=== PATIENT | male | born 1930 | race Caucasian/White ===

== ENCOUNTER 2016-08-06 13:05 | Inpatient (IN) | payer OTHER ==
[~2016-08-06] VITALS: Ht 172.7 cm; Wt 105.4 kg
[2016-08-06] VITALS (7 sets, daily range): BP systolic 164–181; BP diastolic 79–95; PULSE 79–107; RESP 20–26; TEMP 97.6; O2SAT 88–99
[~2016-08-06 13:05] MED LIST: ALBU6.7H INH; B-1210005 PO; CARV6.25 PO; CHOL4 PO; GABA300C3 PO; LACT PO; LISI-360 PO; METR250 PO; NOVOINJ6 SQ; PRIL20CA PO; PROS5TAB2 PO; ROSU40 PO; VITA-13 PO; [UNRECOGNIZED DRUG - CODE] PO
[2016-08-06] MEDS ORDERED: FUROSEMIDE 40 MG/4 ML VIAL IVP ONE (13:15)
[2016-08-06] MEDS ORDERED: methylPREDNISolone SOD SUCC 125 MG/2 ML VIAL IVP ONE (13:15)
[2016-08-06] MEDS ORDERED: SODIUM CHLORIDE 0.9% FLUSH 10 ML FLUSH IVF PRN (13:15)
[2016-08-06 13:35] LABS: AUTOMATED NEUTROPHIL # 6.9 TH/MM3 (1.8-7.7); BASOPHIL # 0.1 TH/MM3 (0-0.2); BASOPHIL % 0.6 % (0.0-2.0); EOSINOPHIL # 0.4 TH/MM3 (0-0.4); EOSINOPHIL % 4.3 % (0.0-4.0); HEMATOCRIT 33.7 % (39.0-51.0); HEMO FLAGS DIFF FINAL; LYMPH % 6.2 % (9.0-44.0); LYMPHOCYTE # 0.6 TH/MM3 (1.0-4.8); MEAN CELL VOLUME 84.8 FL (80.0-100.0); MEAN CORPUSCULAR HEMOGLOBIN 28.7 PG (27.0-34.0); MEAN CORPUSCULAR HGB CONC 33.9 % (32.0-36.0); MONO % 12.3 % (0.0-8.0); NEUT % 76.6 % (16.0-70.0); PLATELET COUNT 199 TH/MM3 (150-450); RED BLOOD COUNT 3.97 MIL/MM3 (4.50-5.90); RED CELL DISTRIBUTION WIDTH 14.8 % (11.6-17.2)
[2016-08-06] MEDS: RESP: ALBUTEROL 2.5 MG/IPRATROPIUM 0.5 MG NEB (SCH) INH (13:42)
--- NOTE | 2016-08-06 13:47 | PD ---
HPI Chief Complaint: Respiratory Distress Time Seen by Provider: 13:09 Travel History International Travel<30 days: No Contact w/Intl Traveler<30days: No Traveled to known affect area: No History of Present Illness HPI This is an 85-year-old male who presents to the emergency department with increasing shortness of breath it's been going on for a week and a half associated with some lower extremity swelling, constant, with a nonproductive cough, worse with laying flat and improved with sitting up. He denies any associated fevers or chills. Patient reports he has a history of atrial fibrillation and COPD. He doesn't really know his medications or his other medical problems. PFSH Past Medical History Anemia: Yes Arthritis: Yes Asthma: No Atrial Fibrillation: Yes Anxiety: No Depression: Yes Heart Rhythm Problems: Yes (afib) Cancer: Yes (PROSTATE) Cardiac Catheterization: Yes Cardiovascular Problems: Yes (HEART ATTACK 10 YEARS AGO ) High Cholesterol: Yes Chemotherapy: No Chest Pain: Yes Congestive Heart Failure: Yes COPD: Yes Cerebrovascular Accident: No Coronary Artery Disease: Yes Diabetes: Yes (dM TYPE 2) Diminished Hearing: Yes (BILATERAL HEARING AIDS) Endocrine: Yes Gastrointestinal Disorders: No Genitourinary: Yes Hiatal Hernia: No Hypertension: Yes Immune Disorder: No Implanted Vascular Access Dvce: No Musculoskeletal: Yes Neurologic: No Psychiatric: Yes Reproductive: No Respiratory: Yes Immunizations Current: Yes Myocardial Infarction: Yes Pneumonia: Yes Radiation Therapy: Yes (PROSTATE) Seizures: Yes (CHILDHOOD) Sleep Apnea: Yes Thyroid Disease: No Ulcer: Yes Tetanus Vaccination: Unknown Influenza Vaccination: Yes ?: Not Past Surgical History Appendectomy: Yes Body Medical Devices: "little peg in the L great toe" Cardiac Surgery: Yes (coronary stents) Coronary Stent: Yes Genitourinary Surgery: Yes (took suprapubic cath out) Oral Surgery: Yes (tonsillectomy) Prostatectomy: Yes Tonsillectomy: Yes Other Surgery: Yes Social History Alcohol Use: No Tobacco Use: No Substance Use: No Allergies-Medications (Allergen,Severity, Reaction): Coded Allergies: Coumadin (Verified Allergy, Severe, 01/24/15) Penicillin (Verified Allergy, Severe, 01/24/15) Reported Meds & Prescriptions Reported Meds & Active Scripts Active Flagyl (Metronidazole) 250 Mg Tab 250 Mg PO QID Take 1 tablet 4 times a day for 2 weeks then Take 1 tablet 3 times a day for 1 week after that take 1 tablet twice a day Lactinex (Lactobacillus Acidophilus) 1 Tab Tab 1 Tab PO TID Dificid 200 Mg Tab (Fidaxomicin) 200 Mg Tab 200 Mg PO BID 10 Days Questran 4 Gm Pkt (Cholestyramine Resin) 4 Gm Soln 4 Gm PO Q8HR Coreg 6.25 mg (Carvedilol) 6.25 Mg Tab 6.25 Mg PO BID Proventil Hfa (Albuterol Sulfate) 6.7 Gm Aero 2 Puff INH Q4 PRN * SHAKE WELL BEFORE USE * Reported Novolin N U-100 (Insulin Isophane (Human)) 1 Ml Inj 18 Units SQ HS Proscar (Finasteride) 5 Mg Tab 5 Mg PO DAILY Vitamin D3 (Cholecalciferol) 1,000 Unit Tab 1,000 Unit PO DAILY Gabapentin 300 Mg Cap 300 Mg PO DIRECTED TAKE 1 CAP BID, 2 CAPS HS Crestor (Rosuvastatin Calcium) 40 Mg Tab 40 Mg PO HS Prilosec 20 mg (Omeprazole) 20 Mg Capcr 20 Mg PO DAILY AC Lisinopril 10 mg (Lisinopril) 10 Mg Tab 10 Mg PO DAILY B-12 (Cyanocobalamin) 1,000 Cr Tab 1,000 Cr PO DAILY Review of Systems ROS Limitations: Poor Historian Physical Exam Narrative GENERAL: Overweight SKIN: Focused skin assessment warm and dry. HEAD: Atraumatic. Normocephalic. EYES: Pupils equal and round. No injection or drainage. ENT: Moist mucous membranes NECK: Trachea midline. CARDIOVASCULAR: Irregularly irregular. Tachycardic. No murmur appreciated. 3 + pitting edema in the bilateral lower extremities. RESPIRATORY: Diffuse wheezing bilaterally with accessory muscle use GASTROINTESTINAL: Abdomen soft, non-tender, nondistended. MUSCULOSKELETAL: No obvious deformities. NEUROLOGICAL: Awake and alert. No obvious cranial nerve deficits. Moving all extremities. PSYCHIATRIC: Appropriate mood and affect; insight and judgment normal. Data Data Last Documented VS Vital Signs Date Time Temp Pulse Resp B/P Pulse Ox O2 Delivery O2 Flow Rate FiO2 08/06/16 14:00 86 24 164/92 96 Nasal Cannula 2 Orders Complete Blood Count With Diff (08/06/16 13:09) Comprehensive Metabolic Panel (08/06/16 13:09) B-Type Natriuretic Peptide (08/06/16 13:09) Troponin I (08/06/16 13:09) Urinalysis - C+S If Indicated (08/06/16 13:09) Iv Access Insert/Monitor (08/06/16 13:09) Ecg Monitoring (08/06/16 13:09) Oximetry (08/06/16 13:09) Oxygen Administration (08/06/16 13:09) Chest, Single Ap (08/06/16 13:09) Sodium Chloride 0.9% Flush (Ns Flush) (08/06/16 13:15) Furosemide Inj (Lasix Inj) (08/06/16 13:15) Methylprednisolone So Succ Inj (Solumedr (08/06/16 13:15) Albuterol-Ipratropium Neb (Duoneb Neb) (08/06/16 13:15) Electrocardiogram (08/06/16 ) Urinary Catheter Insert/Apply (08/06/16 13:52) D-Dimer (08/06/16 14:49) Admit Order (Ed Use Only) (08/06/16 15:39) Labs Laboratory Tests Test 08/06/16 08/06/16 08/06/16 13:23 14:00 14:10 White Blood Count 9.0 TH/MM3 Red Blood Count 3.97 MIL/MM3 Hemoglobin 11.4 GM/DL Hematocrit 33.7 % Mean Corpuscular Volume 84.8 FL Mean Corpuscular Hemoglobin 28.7 PG Mean Corpuscular Hemoglobin 33.9 % Concent Red Cell Distribution Width 14.8 % Platelet Count 199 TH/MM3 Mean Platelet Volume 8.7 FL Neutrophils (%) (Auto) 76.6 % Lymphocytes (%) (Auto) 6.2 % Monocytes (%) (Auto) 12.3 % Eosinophils (%) (Auto) 4.3 % Basophils (%) (Auto) 0.6 % Neutrophils # (Auto) 6.9 TH/MM3 Lymphocytes # (Auto) 0.6 TH/MM3 Monocytes # (Auto) 1.1 TH/MM3 Eosinophils # (Auto) 0.4 TH/MM3 Basophils # (Auto) 0.1 TH/MM3 CBC Comment DIFF FINAL Differential Comment Sodium Level 136 MEQ/L Potassium Level 5.1 MEQ/L Chloride Level 102 MEQ/L Carbon Dioxide Level 27.2 MEQ/L Anion Gap 7 MEQ/L Blood Urea Nitrogen 29 MG/DL Creatinine 1.90 MG/DL Estimat Glomerular Filtration 34 ML/MIN Rate Random Glucose 309 MG/DL Calcium Level 8.5 MG/DL Total Bilirubin 0.5 MG/DL Aspartate Amino Transf 35 U/L (AST/SGOT) Alanine Aminotransferase 24 U/L (ALT/SGPT) Alkaline Phosphatase 108 U/L Troponin I 0.04 NG/ML B-Type Natriuretic Peptide 170 PG/ML Total Protein 7.3 GM/DL Albumin 2.9 GM/DL D-Dimer Quantitative (PE/DVT) 0.76 MG/L FEU Urine Color COLORLESS Urine Turbidity CLEAR Urine pH 5.5 Urine Specific [place] 1.005 Urine Protein 30 mg/dL Urine Glucose (UA) 300 mg/dL Urine Ketones NEG mg/dL Urine Occult Blood SMALL Urine Nitrite NEG Urine Bilirubin NEG Urine Urobilinogen LESS THAN 2.0 MG/DL Urine Leukocyte Esterase MOD Urine RBC 4 /hpf Urine WBC 7 /hpf Urine Bacteria RARE /hpf Microscopic Urinalysis Comment CULT NOT INDICATED MDM Medical Decision Making Medical Screen Exam Complete: Yes Emergency Medical Condition: Yes Interpretation(s) EKG: Atrial fibrillation Anemia 76% neutrophils Creatinine is 1.9 BNP is 170 Troponin is 0.04 Urinalysis: Small amount of white blood cells Chest x-ray: No acute process D-dimer: 0.76, likely normal for age Differential Diagnosis COPD exacerbation, pneumonia, pulmonary embolism, congestive heart failure, atrial fibrillation Narrative Course This is an 85-year-old male who presents to the emergency department with increasing shortness of breath over the past week. On exam he appears volume up. Initially was placed on a monitor and an IV was established. He is found to be hypoxic with an oxygen saturation of 88%. He was given serial bronchodilator treatments, IV methylprednisolone, and a dose of IV Lasix. His symptoms improved significantly and his oxygenation improved. Labs were reassuring. Chest x-ray was negative for acute process. D-dimer was normal for age. I think patient requires admission for continued treatment of COPD exacerbation. We did stand him up to try to ambulate him and he became very dyspneic and hypoxic again. Physician Communication Physician Communication Discussed with Dr. Sorenson Diagnosis Primary Impression: COPD exacerbation Admitting Information Admitting Physician Requests: Admit Ramona Lui MD Aug 06, 2016 13:47
--- NOTE | 2016-08-06 13:47 | RADRPT ---
EXAM DATE/TIME: 08/06/2016 13:24 [facility] COMPARISON: CHEST SINGLE AP, April 19, 2014, 22:49. INDICATIONS : Shortness of breath. MEDICAL HISTORY : Hypertension. Diabetes mellitus type II. Chronic obstructive pulmonary disease. SURGICAL HISTORY : None. ENCOUNTER: Initial ACUITY: 2 months PAIN SCORE: 0/10 LOCATION: Bilateral chest FINDINGS: A single view of the chest demonstrates the lungs to be symmetrically aerated without evidence of mas s, infiltrate or effusion. Heart is mildly enlarged. The cardiomediastinal contours are otherwise un remarkable. Osseous structures are intact. CONCLUSION: No acute disease. No significant change has occurred. Jude Turner MD on August 06, 2016 at 13:45 Board Certified Radiologist. This report was verified electronically.
[2016-08-06 13:50] LABS: ALT (GPT) 24 U/L (12-78); ANION GAP 7 MEQ/L (5-15); AST (GOT) 35 U/L (15-37); BICARBONATE 27.2 MEQ/L (21.0-32.0); BLOOD UREA NITROGEN 29 MG/DL (7-18); CHLORIDE 102 MEQ/L (98-107); GLOMERULAR FILTRATION RATE 34 ML/MIN (>89); SODIUM (NA) 136 MEQ/L (136-145)
[2016-08-06 13:51] LABS: ALKALINE PHOSPHATASE 108 U/L (45-117); TOTAL BILIRUBIN ADULT 0.5 MG/DL (0.2-1.0)
[2016-08-06 13:55] LABS: POTASSIUM 5.1 MEQ/L (3.5-5.1)
[2016-08-06 14:29] LABS: BACTERIA, URINE RARE /hpf; BLOOD, URINE SMALL (NEG); COMMENT (UR) CULT NOT INDICATED; CULTURE IF INDICATED CULT NOT INDICATED; GLUCOSE,URINE 300 mg/dL (NEG); KETONE, URINE NEG (NEG); NITRITE,URINE NEG (NEG); PH, URINE 5.5 (5.0-8.5); URINE COLOR COLORLESS (YELLW/STRAW)
--- NOTE | 2016-08-06 14:36 | EKG ---
Date Performed: 08/06/2016 Time Performed: 13:14:06 PTAGE: 85 years EKG: BASELINE ARTIFACT PRESENT. PROBABLE ATRIAL FIBRILLATION RIGHT BUNDLE BRANCH BLOCK ABNORMAL ECG INTERPRETATION BASED ON A DEFAULT AGE OF 40 YEARS NO SIGNIFICANT CHANGE FROM PRIOR ELECTROCARDIOG JERRELL. PREVIOUS TRACING : 08/06/2016 13.13 DOCTOR: Jose Alejandro Jaquez Interpretating Date/Time 08/06/2016 14:34:59
[2016-08-06] MEDS ORDERED: GABA300C5 PO (17:07)
[2016-08-06] MEDS ORDERED: FURO40TA PO (17:07)
[2016-08-06] MEDS ORDERED: CARV6.252 PO (17:07)
[2016-08-06] MEDS ORDERED: OMEP20CA2 PO (17:07)
[2016-08-06] MEDS ORDERED: ALBU1AER5 INH (17:07)
[2016-08-06] MEDS ORDERED: NOVOLOGSS SQ (17:07)
[2016-08-06] MEDS ORDERED: ASCO500T PO (17:07)
[2016-08-06] MEDS ORDERED: VITA10003 PO (17:07)
[2016-08-06] MEDS ORDERED: CITR1SOL IRRIGATION (17:07)
[2016-08-06] MEDS ORDERED: ROSU1TAB8 PO (17:07)
[2016-08-06] MEDS ORDERED: GABA400C5 PO (17:07)
[2016-08-06] MEDS ORDERED: SPIRCAP INH (17:07)
[2016-08-06] MEDS ORDERED: NOVONP2 SQ (17:07)
[2016-08-06] MEDS ORDERED: LOSA25TA PO (17:07)
[2016-08-06] MEDS ORDERED: cloNIDine HCL 0.1 MG TAB PO PRN (19:00)
[2016-08-06] MEDS ORDERED: ALBUTEROL INH PRN (19:00)
[2016-08-06] MEDS ORDERED: PILL SPLITTER OTHER PRN (19:00)
--- NOTE | 2016-08-06 19:08 | HHI.HP ---
HPI Service [facility] Primary Care Physician [facility] Admission Diagnosis copd exacerbation Diagnoses: Chief Complaint: shortness of brrsth, cough Travel History International Travel<30 Days: No Contact w/Intl Traveler <30 Da: No Traveled to Known Affected Are: No History of Present Illness Patient is an 85 years old male with history of COPD , HTN, D<m type 2 insulin requring, diabeic neuropathy, prostate cancer on chronic smith catheer ff by [facility] who for about a week ago started having shortness of breath assoicated with a dry hacking cough with fever and chills for 3 days. Per patient fever subsided but persistent cough with persistent shorten sso fo breath prompted consult to ER. No relief with use of nebulizers at home. Also on chronic smith catheter last changed a week ago- Saturday and since then has been complaining of pain on the penile shaft/ urethral site. On evaluation here - smith was changed which afforded marked relief Patient was noted to have a sats on 88% re-placed on , NC started. With diffuse wheezing per ER. Nebulization started with duo nebs and given 1 IV Solu-Medrol Admitted for evaluation Per patient PA had tried to arrange home oxygen for him but told he does not quantify Review of Systems Constitutional: COMPLAINS OF: Fever (initially for 3 days this past week), DENIES: Diaphoretic episodes, Fatigue, Weight gain, Weight loss, Chills, Dizziness, Change in appetite, Night Sweats Endocrine: DENIES: Heat/cold intolerance, Polydipsia, Polyuria, Polyphagia Eyes: DENIES: Blurred vision, Diplopia, Eye inflammation, Eye pain, Vision loss , Photosensitivity, Double Vision Ears, nose, mouth, throat: DENIES: Tinnitus, Hearing loss, Vertigo, Nasal discharge, Oral lesions, Throat pain, Hoarseness, Ear Pain, Running Nose, Epistaxis, Sinus Pain, Toothache, Odynophagia Respiratory: DENIES: Apneas, Cough, Snoring, Wheezing, Hemoptysis, Sputum production, Shortness of breath Cardiovascular: DENIES: Chest pain, Palpitations, Syncope, Dyspnea on Exertion , PND, Lower Extremity Edema, Orthopnea, Claudication Gastrointestinal: DENIES: Abdominal pain, Black stools, Bloody stools, Constipation, Diarrhea, Nausea, Vomiting, Difficulty Swallowing, Anorexia Genitourinary: DENIES: Sexual dysfunction, Urinary frequency, Urinary incontinence, Urgency, Hematuria, Dysuria, Nocturia, Penile Discharge, Testicular Pain, Testicular Swelling Musculoskeletal: DENIES: Joint pain, Muscle aches, Stiffness, Joint Swelling, Back pain, Neck pain Integumentary: DENIES: Abnormal pigmentation, Nail changes, Pruritus, Rash Hematologic/lymphatic: DENIES: Bruising, Lymphadenopathy Immunologic/allergic: DENIES: Eczema, Urticaria Neurologic: DENIES: Abnormal gait, Headache, Localized weakness, Paresthesias, Seizures, Speech Problems, Tremor, Poor Balance Psychiatric: DENIES: Anxiety, Confusion, Mood changes, Depression, Hallucinations, Agitation, Suicidal Ideation, Homicidal Ideation, Delusions Past Family Social History Past Medical History Hypertension Diabetes mellitus type 2 COPD not O2 dependent History of prostate cancer on chronic Smith catheter change every 3 weeks Past Surgical History Prostate procedure Reported Medications Losartan 12.5 mg daily Gabapentin 300 mg every morning 400 mg at bedtime Spiriva Pro-air Carvedilol 6.25 mg twice a Rosuvastatin 6.2 kg at bedtime NovoLog sliding NPH 22 units at bedtime Furosemide 40 mg daily Omeprazole Vitamin D Allergies: Coded Allergies: Coumadin (Verified Allergy, Severe, 01/24/15) Penicillin (Verified Allergy, Severe, 01/24/15) Family History Noncontributory Social History Not actively smoking or drinking are no substance abuse Physical Exam Vital Signs Vital Signs Date Time Temp Pulse Resp B/P Pulse Ox O2 Delivery O2 Flow Rate FiO2 08/06/16 17:00 90 22 172/84 94 Room Air 08/06/16 14:00 86 24 164/92 96 Nasal Cannula 2 08/06/16 13:44 98 Nasal Cannula 2.00 08/06/16 13:17 98 Nasal Cannula 3 08/06/16 13:17 107 26 181/95 98 Nasal Cannula 3 08/06/16 13:17 26 98 Nasal Cannula 3 08/06/16 13:09 90 26 181/95 88 Physical Exam GENERAL: Awake alert obese, slightly tachypneic SKIN: No rashes, ecchymoses or lesions. Cool and dry. HEAD: Atraumatic. Normocephalic. No temporal or scalp tenderness. EYES: Pupils equal round and reactive. Extraocular motions intact. No scleral icterus. No injection or drainage. ENT: Nose without bleeding, purulent drainage or septal hematoma. Throat without erythema, tonsillar hypertrophy or exudate. Uvula midline. Airway patent. NECK: Trachea midline. No JVD or lymphadenopathy. Supple, nontender, no meningeal signs. CARDIOVASCULAR: Regular rate and rhythm without murmurs, gallops, or rubs. RESPIRATORY: Decreased breath sounds no Rales or wheezes GASTROINTESTINAL: Abdomen soft, non-tender, nondistended.No guarding. Smith catheter in place draining grossly clear urine MUSCULOSKELETAL: Extremities without clubbing, cyanosis, or edema. No joint tenderness, effusion, or edema noted. No calf tenderness. Negative Homans sign bilaterally. NEUROLOGICAL: Awake and alert. Cranial nerves II through XII intact. Motor and sensory grossly within normal limits. Five out of 5 muscle strength in all muscle groups. Normal speech. Laboratory Laboratory Tests Test 08/06/16 08/06/16 08/06/16 13:23 14:00 14:10 White Blood Count 9.0 Red Blood Count 3.97 Hemoglobin 11.4 Hematocrit 33.7 Mean Corpuscular Volume 84.8 Mean Corpuscular Hemoglobin 28.7 Mean Corpuscular Hemoglobin 33.9 Concent Red Cell Distribution Width 14.8 Platelet Count 199 Mean Platelet Volume 8.7 Neutrophils (%) (Auto) 76.6 Lymphocytes (%) (Auto) 6.2 Monocytes (%) (Auto) 12.3 Eosinophils (%) (Auto) 4.3 Basophils (%) (Auto) 0.6 Neutrophils # (Auto) 6.9 Lymphocytes # (Auto) 0.6 Monocytes # (Auto) 1.1 Eosinophils # (Auto) 0.4 Basophils # (Auto) 0.1 CBC Comment DIFF FINAL Differential Comment Sodium Level 136 Potassium Level 5.1 Chloride Level 102 Carbon Dioxide Level 27.2 Anion Gap 7 Blood Urea Nitrogen 29 Creatinine 1.90 Estimat Glomerular Filtration 34 Rate Random Glucose 309 Calcium Level 8.5 Total Bilirubin 0.5 Aspartate Amino Transf 35 (AST/SGOT) Alanine Aminotransferase 24 (ALT/SGPT) Alkaline Phosphatase 108 Troponin I 0.04 B-Type Natriuretic Peptide 170 Total Protein 7.3 Albumin 2.9 D-Dimer Quantitative (PE/DVT) 0.76 Urine Color COLORLESS Urine Turbidity CLEAR Urine pH 5.5 Urine Specific [place] 1.005 Urine Protein 30 Urine Glucose (UA) 300 Urine Ketones NEG Urine Occult Blood SMALL Urine Nitrite NEG Urine Bilirubin NEG Urine Urobilinogen LESS THAN 2.0 Urine Leukocyte Esterase MOD Urine RBC 4 Urine WBC 7 Urine Bacteria RARE Microscopic Urinalysis Comment CULT NOT INDICATED Result Diagram: 08/06/16 1323 08/06/16 1323 Imaging Last Impressions Chest X-Ray 08/06/16 1309 Signed Impressions: Service Date/Time: Saturday, August 06, 2016 13:24 - CONCLUSION: No acute disease. No significant change has occurred. Jude Turner MD Assessment and Plan Assessment and Plan 85-year-old male presenting with shortness of breath underlying COPD with underlying restrictive component due to morbid obesity Acute respiratory failure with hypoxemia secondary to COPD in acute exacerbation with cough productive of yellowish sputum will treat as clinical pneumonia Start patient on Zithromax. start 02. Start patient on by mouth prednisone We'll do of home oxygen walk test prior to discharge History of atrial fibrillation rate controlled continue on Coreg. Get echo Diabetes type 2 continue continue on home insulins regimen History of hypertension continue on antihypertensive. Clonidine when necessary History of prostate cancer with chronic smith catheter.- changed 08/06. [facility] Acute kidney insufficiency likely with underlying renal insufficiency monitor BMP Lovenox for DVT prophylaxis Discussed Condition With Patient Physician Certification 2 Midnight Certification Type: Admission for Inpatient Services Order for Inpatient Services The services are ordered in accordance with Medicare regulations or non- Medicare payer requirements, as applicable. In the case of services not specified as inpatient-only, they are appropriately provided as inpatient services in accordance with the 2-midnight benchmark. Estimated LOS (days): 3 days is the estimated time the patient will need to remain in the hospital, assuming treatment plan goals are met and no additional complications. Post-Hospital Plan: Not yet determined Stephanie Sorenson MD Aug 06, 2016 19:08 Stephanie Sorenson MD Aug 06, 2016 19:08
[2016-08-06] MEDS ORDERED: RESP: ALBUTEROL 2.5 MG/IPRATROPIUM 0.5 MG NEB (PRN) NEB (19:15)
[2016-08-06] MEDS ORDERED: [UNRECOGNIZED DRUG - OTHER] INH PRN (19:15)
[2016-08-06] MEDS ORDERED: DEXTROSE 50% IN WATER 50 ML VIAL(D50) IV PUSH PRN (19:30)
[2016-08-06] MEDS ORDERED: GLUCAGON 1 MG/ML VIAL OTHER PRN (19:30)
[2016-08-06] MEDS: RESP: ALBUTEROL 2.5 MG/IPRATROPIUM 0.5 MG NEB (SCH) NEB (20:00)
[2016-08-06] MEDS ORDERED: AZITHROMYCIN INJ 500 MG in SODIUM CHLOR 0.9% 250 ML INJ 250 ML IV ONE (20:00)
[2016-08-06] MEDS ORDERED: ACETAMINOPHEN 325 MG TAB PO PRN (21:00)
[2016-08-06] MEDS ORDERED: NON-FORMULARY DRUG (Rosuvastatin 10 MG) PO SCH (21:00)
[2016-08-06] MEDS: INSULIN HUMAN NPH 1,000 UNITS/10 ML VIAL SQ SCH (21:00)
[2016-08-06] MEDS ORDERED: INSULIN HUMAN REGULAR 1,000 UNITS/10 ML VIAL IV PUSH ONE ×2 (21:00→23:45)
[2016-08-06] MEDS: INSULIN ASPART SUPPLEMENTAL SCALE SQ SCH (21:35)
[2016-08-06] MEDS: guaiFENesin E.R. 600 MG TAB PO SCH (21:39)
[2016-08-06] MEDS: CARVEDILOL 6.25 MG TAB PO SCH (21:39)
[2016-08-06] MEDS: GABAPENTIN 400 MG CAP PO SCH (21:40)
[2016-08-06] MEDS: ATORVASTATIN 20 MG TAB PO SCH (21:40)
[2016-08-06] MEDS: methylPREDNISolone SOD SUCC 40 MG/1 ML VIAL IV PUSH SCH (21:41)
[2016-08-07] VITALS (9 sets, daily range): BP systolic 133–173; BP diastolic 70–88; PULSE 69–87; RESP 18–24; TEMP 97–98; O2SAT 90–97
[2016-08-07] MEDS: GABAPENTIN 300 MG CAP PO SCH (06:10)
[2016-08-07] MEDS: methylPREDNISolone SOD SUCC 40 MG/1 ML VIAL IV PUSH SCH ×3 (06:12→21:33)
[2016-08-07] MEDS: INSULIN ASPART SUPPLEMENTAL SCALE SQ SCH ×4 (06:18→21:32)
[2016-08-07] MEDS ORDERED: NON-FORMULARY DRUG (Omeprazole 20 MG) PO SCH (07:00)
[2016-08-07] MEDS: RESP: ALBUTEROL 2.5 MG/IPRATROPIUM 0.5 MG NEB (SCH) NEB ×4 (07:39→20:05)
[2016-08-07] MEDS: CARVEDILOL 6.25 MG TAB PO SCH ×2 (08:14→21:31)
[2016-08-07] MEDS: PANTOPRAZOLE SOD 20 MG DELAYED RELEASE TAB PO SCH (08:14)
[2016-08-07] MEDS: guaiFENesin E.R. 600 MG TAB PO SCH ×2 (08:14→21:30)
[2016-08-07] MEDS: TIOTROPIUM BROMIDE 18 MCG INH INH SCH (08:14)
[2016-08-07] MEDS: LOSARTAN 25 MG TAB PO SCH (08:14)
[2016-08-07] MEDS ORDERED: FUROSEMIDE 40 MG TAB PO SCH (09:00)
[2016-08-07 09:06] LABS: ANION GAP 10 MEQ/L (5-15); BLOOD UREA NITROGEN 40 MG/DL (7-18); CHLORIDE 100 MEQ/L (98-107); GLOMERULAR FILTRATION RATE 31 ML/MIN (>89); POTASSIUM 4.3 MEQ/L (3.5-5.1); SODIUM (NA) 137 MEQ/L (136-145)
--- NOTE | 2016-08-07 15:34 | EC ---
Study Study Date:08/07/2016 STUDY CONCLUSIONS SUMMARY - Left ventricle: The cavity size was normal. Wall thickness was increased in a pattern of moderate LVH. Systolic function was normal. The estimated ejection fraction was in the range of 55% to 60%. Wall motion was normal; there were no regional wall motion abnormalities. - Aorta: The aorta was moderately dilated. - Mitral valve: Mild regurgitation. - Left atrium: The atrium was mildly dilated. - Tricuspid valve: Mild regurgitation. - Pulmonary arteries: Systolic pressure was moderately increased. PA peak pressure: 39mm Hg (S). If LV function is below 40, please consider prescribing an ACEI or ARB or document rationale for non-use. PROCEDURE DATA STUDY STATUS: Elective. Procedure: Transthoracic echocardiography. Image quality was good. Scanning was performed from the parasternal, apical, and subcostal acoustic windows. Study completion: The patient tolerated the procedure well. Transthoracic echocardiography. M-mode, complete 2D, complete spectral Doppler, and color Doppler. Patient status: Inpatient. CARDIAC ANATOMY LEFT VENTRICLE: The cavity size was normal. Wall thickness was increased in a pattern of moderate LVH. Systolic function was normal. The estimated ejection fraction was in the range of 55% to 60%. Wall motion was normal; there were no regional wall motion abnormalities. AORTIC VALVE: Trileaflet; normal thickness leaflets. Doppler: Transvalvular velocity was within the normal range. There was no stenosis. No regurgitation. AORTA: The aorta was moderately dilated. Aortic root: The aortic root was normal in size. MITRAL VALVE: Structurally normal valve. Doppler: Transvalvular velocity was within the normal range. There was no evidence for stenosis. Mild regurgitation. LEFT ATRIUM: The atrium was mildly dilated. RIGHT VENTRICLE: The cavity size was normal. Wall thickness was normal. PULMONIC VALVE: Doppler: Transvalvular velocity was within the normal range. There was no evidence for stenosis. No regurgitation. TRICUSPID VALVE: Structurally normal valve. Doppler: Transvalvular velocity was within the normal range. Mild regurgitation. PULMONARY ARTERY: The main pulmonary artery was normal-sized. Systolic pressure was moderately increased. RIGHT ATRIUM: The atrium was normal in size. PERICARDIUM: There was no pericardial effusion. SYSTEMIC VEINS: Inferior vena cava: The vessel was normal in size. BASIC MEASUREMENTS ADULT Normal Left ventricle LV internal dimension, ED, chordal level, *41.7 mm 43-52 PLAX LV internal dimension, ES, chordal level, 31 mm 23-38 PLAX Fractional shortening, chordal level, PLAX *26 % >29 LV posterior wall thickness, ED 15.7 mm IVS/LVPW ratio, ED 1.03 <1.3 Ventricular septum Septal thickness, ED 16.2 mm Aortic valve Leaflet separation 24 mm 15-26 Right ventricle RV internal dimension, ED, PLAX 33.3 mm 19-38 BASIC MEASUREMENTS ADULT Normal Aortic valve Leaflet separation 24 mm 15-26 Aorta Root diameter, ED *40 mm 20-37 Left atrium Anterior-posterior dimension, ES *49 mm 19-40 LA/aortic root ratio 1.23 DOPPLER MEASUREMENTS ADULT Normal Main pulmonary artery Pressure, S *39 mm Hg =30 Tricuspid valve Regurgitant peak velocity 269 cm/s Peak RV-RA gradient, S 29 mm Hg Systemic veins Estimated CVP 10 mm Hg Right ventricle RV pressure, S *39 mm Hg <30 LEGEND: Mean values are shown as u=mean value. Asterisk (*) orse values outside specified normal range. Prepared and signed by Chelsi Orozco [id number]
--- NOTE | 2016-08-07 16:47 | HHI.PR ---
Subjective Remarks up and ambulated cough- minimal Objective Vitals Vital Signs Date Time Temp Pulse Resp B/P Pulse Ox O2 Delivery O2 Flow Rate FiO2 08/07/16 12:00 97.5 69 22 133/80 94 08/07/16 08:00 98.0 74 22 173/86 95 08/07/16 07:44 Nasal Cannula 2.00 08/07/16 07:39 95 Nasal Cannula 2.00 08/07/16 04:00 97.2 75 19 133/70 94 08/07/16 01:09 Nasal Cannula 2.00 08/07/16 00:00 97.0 78 19 165/88 97 08/06/16 20:00 97.6 79 20 166/79 99 08/06/16 18:59 89 22 165/88 98 Nasal Cannula 3 08/06/16 17:00 90 22 172/84 94 Room Air I/O 08/06/16 08/06/16 08/06/16 08/07/16 08/07/16 08/07/16 07:00 15:00 23:00 07:00 15:00 23:00 Intake Total 120 ml 120 ml Output Total 2100 ml 300 ml Balance -1980 ml -180 ml Intake Oral 120 ml 120 ml Output Urine Total 2100 ml 300 ml # Bowel Movements 0 1 Result Diagram: 08/06/16 1323 08/07/16 0730 Imaging Last Impressions Chest X-Ray 08/06/16 1309 Signed Impressions: Service Date/Time: Saturday, August 06, 2016 13:24 - CONCLUSION: No acute disease. No significant change has occurred. Jude Turner MD Objective Remarks awake and alert lungs- few rhonchi, few exp. wheezes regular rhythm abdomen soft, notneder extremities no edema A/P Assessment and Plan 85-year-old male presenting with shortness of breath underlying COPD with underlying restrictive component due to morbid obesity Acute respiratory failure with hypoxemia secondary to COPD in acute exacerbation with cough productive of yellowish sputum will treat as clinical pneumonia On zithromax continue 02 po prednisone We'll do of home oxygen walk test prior to discharge History of atrial fibrillation rate controlled continue on Coreg. echo pending Diabetes type 2 continue continue on home insulins regimen History of hypertension continue on antihypertensive. Clonidine when necessary History of prostate cancer with chronic smith catheter.- changed 08/06. [facility] Acute kidney insufficiency likely with underlying renal insufficiency ff. BMP. decrease furseomide dose Lovenox for DVT prophylaxis Stephanie Sorenson MD Aug 07, 2016 16:47
[2016-08-07 20:21] LABS: BLOOD GAS BASE EXCESS 1.8 mmol/L (-2-2); BLOOD GAS HCO3 27 mmol/L (22-26); BLOOD GAS METHEMOGLOBIN 0.9 % (0-2); BLOOD GAS O2 HGB SATURATION 91 % (90-100); BLOOD GAS PCO2 48 mmHg (38-42); BLOOD GAS PO2 68 mmHg (61-120); BLOOD GAS TOTAL HGB 16.4 G/DL (12.0-16.0); CRITICAL VALUE NO; DRAW SITE RT RADIAL; FIO2 21 %; NUMBER OF ARTERIAL PUNCTURES 1; STAT NO; TEMP CORR TO 98.6; ULNAR PULSE PRESENT
[2016-08-07] MEDS: INSULIN HUMAN NPH 1,000 UNITS/10 ML VIAL SQ SCH (21:00)
[2016-08-07] MEDS: ATORVASTATIN 20 MG TAB PO SCH (21:30)
[2016-08-07] MEDS: GABAPENTIN 400 MG CAP PO SCH (21:31)
[2016-08-07] MEDS: AZITHROMYCIN 250 MG TAB PO SCH (21:31)
[2016-08-07 21:38] LABS: HEMOGLOBIN A1a 1.4 %; HEMOGLOBIN A1b 2.9 %; HEMOGLOBIN Ao 77.3 %; HEMOGLOBIN LA1C 2.6 %; HEMOGLOBIN P3 5.6 %
--- NOTE | 2016-08-07 22:25 | MB ---
cc: ABISAI RICHMOND DATE OF CONSULTATION 08/07/[address] Sorenson. REASON FOR CONSULTATION Evaluation for COPD exacerbation. PRESENT ILLNESS Mr. Gibson is a pleasant 85-year-old male with longstanding history of COPD. He uses nebulizer treatment, history of diabetes mellitus, hypertension, history of seven stents placed. The patient came to the hospital with one week history of worsening of his cough and shortness of breath. He was feeling burning sensation across his chest and worsening of his wheezing. He took nebulizer treatment at home and did not get better and better and he came to the hospital. He had a workup done. LABORATORY DATA His WBC count is 9000, hemoglobin 11.4, hematocrit 33.7, MCV 84, platelet count 199. His sodium 137, potassium 4.3, chloride 100, CO2 27, BUN 40, creatinine 2.06, glucose 198. Before that it was 579. IMAGING His chest x-ray showed no acute infiltrate. PAST MEDICAL HISTORY Significant for: 1. Longstanding history of COPD. 2. Diabetes mellitus. 3. Hypertension. 4. History of coronary artery disease status post seven stent placements. 5. History of cancer of the prostate status post 40 radiation treatments and he has indwelling Cortez catheter. MEDICATIONS He is currently takin. Lasix 20 mg a day. 2. Zithromax 250 mg a day. 3. Losartan 12.5 mg daily. 4. Spiriva once a day. 5. Protonix 40 milligrams daily. 6. Neurontin 300 mg a day. 7. Solu-Medrol 40 mg q.8h. 8. Coreg 6.25 milligrams twice a day. 9. Mucinex 600 milligrams twice a day. 10. Lipitor 20 mg a day. 11. Albuterol/Atrovent nebulizer treatment. ALLERGIES HR IS ALLERGIC TO COUMADIN AND PENICILLIN. SOCIAL HISTORY He is for 60 years. He used to work before. He is retired. He has history of smoking up to five packs a day which he quit a long time ago. No alcohol use. FAMILY HISTORY He has five children. His is currently in the long term. REVIEW OF SYSTEMS The patient is able to walk only short distance. He has indwelling Cortez catheter. No DVT, pulmonary embolism, or seizure, stroke or epilepsy. PHYSICAL EXAMINATION GENERAL: Shows a well-built, well-nourished male, mild short of breath. VITAL SIGNS: Blood pressure 166/79, heart rate 81, respiration 19, temperature 97.6. HEENT: Pupils are equal and reactive to light. Oral mucosa, nasal mucosa normal. NECK: Supple. JVD not raised. CHEST: He has bilateral expiratory rhonchi. CARDIOVASCULAR: S1-S2 normal. ABDOMEN: Soft, nondistended. Bowel sounds present. EXTREMITIES: No edema. CENTRAL NERVOUS SYSTEM: She is alert and oriented times three. No focal deficit. IMPRESSION 1. COPD exacerbation. 2. Bronchitis. 3. Uncontrolled diabetes mellitus. 4. Hypertension. 5. History of coronary artery disease. 6. Cancer of the prostate. PLAN I discussed with the patient and his daughter at the bedside we will give him aerosol treatment, IV Solu-Medrol. Monitor his blood sugar. Continue antibiotic. Supplement his oxygen and check a blood gas. I will also evaluate him for need for home oxygen therapy. Further treatment will depend on the course in the hospital. Thank you Dr. Sorenson for this consultation. MD ADRIEN Goldman/LORENA /7:08 PM /10:12 PM
[2016-08-08] VITALS (8 sets, daily range): BP systolic 155–179; BP diastolic 77–94; PULSE 69–85; RESP 18–22; TEMP 97.6–98.2; O2SAT 94–97
[2016-08-08] MEDS: INSULIN ASPART SUPPLEMENTAL SCALE SQ SCH ×4 (06:18→21:24)
[2016-08-08] MEDS: methylPREDNISolone SOD SUCC 40 MG/1 ML VIAL IV PUSH SCH ×2 (06:18→12:12)
[2016-08-08] MEDS: GABAPENTIN 300 MG CAP PO SCH (06:18)
[2016-08-08] MEDS: RESP: ALBUTEROL 2.5 MG/IPRATROPIUM 0.5 MG NEB (SCH) NEB ×4 (08:00→19:12)
[2016-08-08] MEDS: TIOTROPIUM BROMIDE 18 MCG INH INH SCH (09:00)
[2016-08-08] MEDS: LOSARTAN 25 MG TAB PO SCH (09:19)
[2016-08-08] MEDS: PANTOPRAZOLE SOD 20 MG DELAYED RELEASE TAB PO SCH (09:19)
[2016-08-08] MEDS: guaiFENesin E.R. 600 MG TAB PO SCH ×2 (09:19→21:24)
[2016-08-08] MEDS: CARVEDILOL 6.25 MG TAB PO SCH ×2 (09:19→21:25)
[2016-08-08] MEDS: FUROSEMIDE 20 MG TAB PO SCH (09:20)
--- NOTE | 2016-08-08 14:42 | HHI.PR ---
Subjective Remarks feels slightly better cough dry Objective Vitals Vital Signs Date Time Temp Pulse Resp B/P Pulse Ox O2 Delivery O2 Flow Rate FiO2 08/08/16 12:00 97.9 69 18 172/94 95 08/08/16 09:00 95 Nasal Cannula 3.00 08/08/16 08:02 97 Nasal Cannula 2.00 08/08/16 08:00 97.8 81 22 173/87 95 08/08/16 04:00 98.1 83 20 179/81 95 08/08/16 00:00 98.2 85 20 164/77 95 08/07/16 20:15 Nasal Cannula 2.00 08/07/16 20:10 97 Nasal Cannula 2.00 08/07/16 19:30 97.6 72 18 156/80 95 08/07/16 16:30 97.6 81 19 166/79 97 08/07/16 16:00 97.4 87 24 158/77 90 I/O 08/07/16 08/07/16 08/07/16 08/08/16 08/08/16 08/08/16 07:00 15:00 23:00 07:00 15:00 23:00 Intake Total 120 ml 480 ml 600 ml 240 ml Output Total 300 ml 975 ml 650 ml 600 ml Balance -180 ml -495 ml -50 ml -360 ml Intake Oral 120 ml 480 ml 600 ml 240 ml Output Urine Total 300 ml 975 ml 650 ml 600 ml # Bowel Movements 1 3 0 0 Result Diagram: 08/06/16 1323 08/07/16 0730 Imaging Last Impressions Chest X-Ray 08/06/16 1309 Signed Impressions: Service Date/Time: Saturday, August 06, 2016 13:24 - CONCLUSION: No acute disease. No significant change has occurred. Jude Turner MD Objective Remarks awake and alert lungs- few rhonchi, regular rhythm abdomen soft, notender extremities no edema Urinary Catheter: Yes Smith insert reason: Obstruction/Retention A/P Assessment and Plan 85-year-old male presenting with shortness of breath underlying COPD with underlying restrictive component due to morbid obesity Acute respiratory failure with hypoxemia secondary to COPD in acute exacerbation with cough productive of yellowish sputum will treat as clinical pneumonia On zithromax continue 02 change to po prednisone 20 mg po bid We'll do of home oxygen walk test prior to discharge History of atrial fibrillation rate controlled continue on Coreg. echo good systolic function EF 55-% Diabetes type 2 continue continue on home insulins regimen- patient is on NPH 22 units SQ hs. We will change to bid start NPH am dose too History of hypertension continue on antihypertensive. Clonidine when necessary History of prostate cancer with chronic smith catheter.- changed 08/06. [facility] Acute kidney insufficiency likely with underlying renal insufficiency ff. BMP. - on lasix Lovenox for DVT prophylaxis will do walk test prior to DC- I thinck he will qualify for home 02 was on home 02 but [place] took it away Stephanie Sorenson MD Aug 08, 2016 14:42
--- NOTE | 2016-08-08 19:29 | HHI.PR ---
Subjective Remarks 85 YO WM with COPD exac, Bronchitis,DM Feels better On NC Switched to po Steroids Objective Vital Signs Vital Signs Date Time Temp Pulse Resp B/P Pulse Ox O2 Delivery O2 Flow Rate FiO2 08/08/16 16:00 98.0 81 18 167/89 94 08/08/16 15:13 96 Nasal Cannula 2.00 08/08/16 12:00 97.9 69 18 172/94 95 08/08/16 09:00 95 Nasal Cannula 3.00 08/08/16 08:02 97 Nasal Cannula 2.00 08/08/16 08:00 97.8 81 22 173/87 95 08/08/16 04:00 98.1 83 20 179/81 95 08/08/16 00:00 98.2 85 20 164/77 95 08/07/16 20:15 Nasal Cannula 2.00 08/07/16 20:10 97 Nasal Cannula 2.00 08/07/16 19:30 97.6 72 18 156/80 95 I/O 08/07/16 08/07/16 08/07/16 08/08/16 08/08/16 08/08/16 07:00 15:00 23:00 07:00 15:00 23:00 Intake Total 120 ml 480 ml 600 ml 240 ml 960 ml Output Total 300 ml 975 ml 650 ml 600 ml 1550 ml Balance -180 ml -495 ml -50 ml -360 ml -590 ml Intake Oral 120 ml 480 ml 600 ml 240 ml 960 ml Output Urine Total 300 ml 975 ml 650 ml 600 ml 1550 ml # Bowel Movements 1 3 0 0 0 Result Diagram: 08/06/16 1323 08/07/16 0730 Objective Remarks GENERAL: WBWN obese male, NAD SKIN: Warm and dry. HEAD: Normocephalic. EYES: No scleral icterus. No injection or drainage. NECK: Supple, trachea midline. No JVD or lymphadenopathy. CARDIOVASCULAR: Regular rate and rhythm without murmurs, gallops, or rubs. RESPIRATORY: Breath sounds equal bilaterally. No accessory muscle use. Exp rhonchi GASTROINTESTINAL: Abdomen soft, non-tender, nondistended. MUSCULOSKELETAL: No cyanosis, or edema. BACK: Nontender without obvious deformity. No CVA tenderness. A/P Assessment and Plan COPD Exac bronchitis DM CAD H/O Ca Prostate PLAN: Aerosol nebs PO Steroids monitor BS Cont Zithro Supplement 02 to keep sat >90% Pardeep Rodriguez MD Aug 08, 2016 19:29
[2016-08-08] MEDS: INSULIN HUMAN NPH 1,000 UNITS/10 ML VIAL SQ SCH (21:00)
[2016-08-08] MEDS: GABAPENTIN 400 MG CAP PO SCH (21:24)
[2016-08-08] MEDS: AZITHROMYCIN 250 MG TAB PO SCH (21:24)
[2016-08-08] MEDS: ATORVASTATIN 20 MG TAB PO SCH (21:25)
[2016-08-08] MEDS: predniSONE 20 MG TAB PO SCH (21:25)
[2016-08-09] VITALS: BP 171/86; PULSE 78; RESP 18; TEMP 97.7; O2SAT 96
[2016-08-09 04:00] VITALS: BP 175/88; PULSE 77; RESP 18; TEMP 98; O2SAT 97
[2016-08-09] MEDS: GABAPENTIN 300 MG CAP PO SCH (06:13)
[2016-08-09] MEDS: INSULIN ASPART SUPPLEMENTAL SCALE SQ SCH ×2 (06:14→11:00)
[2016-08-09] MEDS: RESP: ALBUTEROL 2.5 MG/IPRATROPIUM 0.5 MG NEB (SCH) NEB ×3 (07:52→15:22)
[2016-08-09 07:54] VITALS: O2SAT 96
[2016-08-09 08:00] VITALS: BP 146/82; PULSE 81; RESP 24; TEMP 98.5; O2SAT 98
[2016-08-09] MEDS ORDERED: INSULIN HUMAN NPH 1,000 UNITS/10 ML VIAL SQ SCH (08:00)
[2016-08-09] MEDS: guaiFENesin E.R. 600 MG TAB PO SCH (08:11)
[2016-08-09] MEDS: LOSARTAN 25 MG TAB PO SCH (08:11)
[2016-08-09] MEDS: predniSONE 20 MG TAB PO SCH (08:11)
[2016-08-09] MEDS: PANTOPRAZOLE SOD 20 MG DELAYED RELEASE TAB PO SCH (08:11)
[2016-08-09] MEDS: CARVEDILOL 6.25 MG TAB PO SCH (08:11)
[2016-08-09] MEDS: FUROSEMIDE 20 MG TAB PO SCH (08:11)
[2016-08-09] MEDS: TIOTROPIUM BROMIDE 18 MCG INH INH SCH (08:12)
[2016-08-09 12:00] VITALS: BP 149/87; PULSE 67; RESP 24; TEMP 97.5; O2SAT 96
[2016-08-09] MEDS ORDERED: PRED20 PO (14:13)
[2016-08-09] MEDS ORDERED: AZIT250T3 PO (14:14)
[2016-08-09] MEDS ORDERED: FURO20TA PO (14:16)
--- NOTE | 2016-08-09 14:19 | HHI.PR ---
Subjective Remarks feeling better no cough, no fever smith draining clear urine Objective Vitals Vital Signs Date Time Temp Pulse Resp B/P Pulse Ox O2 Delivery O2 Flow Rate FiO2 08/09/16 12:00 97.5 67 24 149/87 96 08/09/16 08:00 98.5 81 24 146/82 98 08/09/16 08:00 94 Nasal Cannula 2.00 08/09/16 07:54 96 Nasal Cannula 2.00 08/09/16 04:00 98.0 77 18 175/88 97 08/09/16 00:00 97.7 78 18 171/86 96 08/08/16 20:15 Nasal Cannula 2.00 08/08/16 20:00 97.6 77 18 155/89 96 08/08/16 16:00 98.0 81 18 167/89 94 08/08/16 15:13 96 Nasal Cannula 2.00 I/O 08/08/16 08/08/16 08/08/16 08/09/16 08/09/16 08/09/16 07:00 15:00 23:00 07:00 15:00 23:00 Intake Total 240 ml 960 ml 240 ml 240 ml Output Total 600 ml 1550 ml 1450 ml Balance -360 ml -590 ml 240 ml -1210 ml Intake Oral 240 ml 960 ml 240 ml 240 ml Output Urine Total 600 ml 1550 ml 1450 ml # Voids 0 # Bowel Movements 0 0 0 0 Result Diagram: 08/06/16 1323 08/07/16 0730 Imaging Last Impressions Chest X-Ray 08/06/16 1309 Signed Impressions: Service Date/Time: Saturday, August 06, 2016 13:24 - CONCLUSION: No acute disease. No significant change has occurred. Jude Turner MD Objective Remarks awake and alert lungs- few rhonchi, regular rhythm abdomen soft, nontender extremities no edema A/P Assessment and Plan 85-year-old male presenting with shortness of breath underlying COPD with underlying restrictive component due to morbid obesity Acute respiratory failure with hypoxemia secondary to COPD in acute exacerbation with cough productive of yellowish sputum will treat as clinical pneumonia On zithromax continue 02 change to po prednisone 20 mg po bid We'll do of home oxygen walk test prior to discharge History of atrial fibrillation rate controlled continue on Coreg. echo good systolic function EF 55-% Diabetes type 2 continue continue on home insulins regimen- patient is on NPH 22 units SQ hs. We will change to bid start NPH am dose too History of hypertension continue on antihypertensive. Clonidine when necessary History of prostate cancer with chronic smith catheter.- changed 08/06. [facility] Acute kidney insufficiency likely with underlying renal insufficiency ff. BMP. - on lasix Lovenox for DVT prophylaxis will do walk test prior to DC- did not qualify was on home [facility] but [facility] Home today Stephanie Sorenson MD Aug 09, 2016 14:19
--- NOTE | 2016-08-09 14:21 | HHI.DS ---
Discharge Summary Admission Date Aug 06, 2016 at 15:40 Discharge Date: Aug 09, 2016 Admitting Diagnosis copd exacerbation (1) Chronic obstructive pulmonary disease ICD Code: J44.9 Diagnosis: Principal Procedures none Brief History - From Admission Patient is an 85 years old male with history of COPD , HTN, D<m type 2 insulin requring, diabeic neuropathy, prostate cancer on chronic smith catheer ff by [facility] who for about a week ago started having shortness of breath assoicated with a dry hacking cough with fever and chills for 3 days. Per patient fever subsided but persistent cough with persistent shorten sso fo breath prompted consult to ER. No relief with use of nebulizers at home. Also on chronic smith catheter last changed a week ago- Saturday and since then has been complaining of pain on the penile shaft/ urethral site. On evaluation here - smith was changed which afforded marked relief Patient was noted to have a sats on 88% re-placed on NC, 02 NC started. With diffuse wheezing per ER. Nebulization started with duo nebs and given 1 IV Solu-Medrol Admitted for evaluation Per patient PA had tried to arrange home oxygen for him but told he does not quantify CBC/BMP: 08/06/16 1323 08/07/16 0730 Significant Findings Laboratory Tests Test 08/06/16 08/07/16 08/07/16 21:50 07:30 20:10 Random Glucose 579 MG/DL 198 MG/DL (74-106) (74-106) Blood Urea Nitrogen 40 MG/DL (7-18) Creatinine 2.06 MG/DL (0.60-1.30) Estimat Glomerular Filtration 31 ML/MIN (>89) Rate Hemoglobin A1c 9.9 % (4.3-6.0) Blood Gas HCO3 27 mmol/L (22-26) Arterial Blood pH 7.36 (7.380-7.420) Arterial Blood Partial 48 mmHg (38-42) Pressure CO2 Arterial Blood Oxygen Content 21.0 Vol % (12.0-20.0) Blood Gas Hemoglobin 16.4 G/DL (12.0-16.0) Imaging Last Impressions Chest X-Ray 08/06/16 5059 Signed Impressions: Service Date/Time: Saturday, August 06, 2016 13:24 - CONCLUSION: No acute disease. No significant change has occurred. Jude Turner MD PE at Discharge awake and alert lungs- decreased breath sounds, no rhonchi, no whezes regular rhythm abdomen soft, nontenderfoley in place- clear urine draininfg extremities no edema Pt update on day of discharge awake and alert, afebrile- ambulating- did not qualify for home 02 instruct patient to pace himselfgoing on and on about bills Hospital Course 85-year-old male presenting with shortness of breath underlying COPD with underlying restrictive component due to morbid obesity Acute respiratory failure with hypoxemia secondary to COPD in acute exacerbation with cough productive of yellowish sputum will treat as clinical pneumonia On zithromax continue 02 change to po prednisone 20 mg po bid We'll do of home oxygen walk test prior to discharge History of atrial fibrillation rate controlled continue on Coreg. echo good systolic function EF 55-% Diabetes type 2 continue continue on home insulins regimen- patient is on NPH 22 units SQ hs. We will change to bid start NPH am dose too History of hypertension continue on antihypertensive. Clonidine when necessary History of prostate cancer with chronic smith catheter.- changed 08/06. Outpatient follow-up with [facility] Acute kidney insufficiency likely with underlying renal insufficiency ff. BMP. - on lasix Lovenox for DVT prophylaxis will do walk test prior to DC- did not qualify Home today Pt Condition on Discharge: Stable Discharge Disposition: Disch w/ Home Health Serv Discharge Time: <= 30 minutes Discharge Instructions DIET: Follow Instructions for: Heart Healthy Diet, Diabetic Diet Activities you can perform: Weight Bearing as [place] Activities to Avoid: Prolonged Standing, Strenuous Activity Follow up Referrals: PCP Follow-up - 08/13/16 with [facility] - 08/14/16 with Pardeep Rodriguez MD New Orders: BASIC METABOLIC PROF - 08/13/16 New Medications: Azithromycin (Azithromycin) 250 Mg Tab 250 MG PO DAILY@20 COPD Days 2 TAB Furosemide (Furosemide) 20 Mg Tab 20 MG PO DAILY HTN Days 30 TAB Prednisone (Prednisone) 20 Mg Tab 20 MG PO BID CIPD Days 3 TAB Continued Medications: Albuterol Powder Inh (Proair Respiclick Inh) 90 Mcg/Act Aerp 1 PUFF INH Q4H PRN SHORTNESS OF BREATH #1 Ref 0 INHALER Ascorbic Acid (Ascorbic Acid) 500 Mg Tab 500 MG PO TAB Carvedilol (Carvedilol) 6.25 Mg Tab 6.25 MG PO BID #60 Ref 0 TAB Cholecalciferol (Vitamin D-3) 1,000 Unit Tab 1000 UNITS PO DAILY #30 Ref 0 TAB Citric Yoxn-Nywnltkwbyy-Wqhgpdmbx Carbon Irr (Renacidin Irr) 500 Ml Soln 30 ML IRRIGATION WEEKLY #1 CONTAINER Gabapentin (Gabapentin) 300 Mg Cap 300 MG PO DAILY@0600 #30 Ref 0 CAP Gabapentin (Gabapentin) 400 Mg Cap 400 CAP PO HS #30 Ref 0 CAP Insulin Aspart Inj (Novolog Inj) 100 Unit/Ml Inj 12 SQ TIDAC Insulin Human NPH Inj (Novolin N Inj) 1,000 Unit/10 Ml Vial 22 UNITS SQ HS Blood Sugar Management #10 Ref 0 ML Losartan (Losartan) 25 Mg Tab 12.5 MG PO DAILY Blood Pressure Management #15 Ref 0 TAB Omeprazole (Omeprazole) 20 Mg Cap 20 MG PO AC BREAKFAST Rosuvastatin (Rosuvastatin) 20 Mg Tab 10 MG PO HS Cholesterol Management #30 Ref 0 TAB Tiotropium Inh (Spiriva Handihaler) 18 Mcg Cap 18 MCG INH DAILY 1 capsule = 18 mcg COPD #30 Ref 0 CAP Discontinued Medications: Furosemide (Furosemide) 40 Mg Tab 40 MG PO DAILY #30 Ref 0 TAB Stephanie Sorenson MD Aug 09, 2016 14:21
--- NOTE | 2016-08-09 14:26 | HHI.FF ---
Face to Face Verification Diagnosis: (1) DM (diabetes mellitus) (2) History of prostate cancer (3) Acute on chronic renal failure (4) Diabetes Home Health Nursing Order: Medical education Signs/symptoms of disease process Diabetic education Medication education-adverse effect Nursing assessment with vital signs I have seen patient Dhruv Kinney on 08/09/16. My clinical findings support the need for the requested home health care services because: Patient has SOB I certify that my clinical findings support that this patient is homebound because: Hx COPD- exertion dyspnea/weakness Need for psychosocial assistance Stephanie Sroenson MD Aug 09, 2016 14:26
== END 2016-08-09 16:11 | disposition home health service (06) | DRG 190 ==
LOC: NEPE 13:05 → NEDA 15:40 → N04A 19:23
PROVIDERS: ADMIT Internal Medicine; ATTEND Internal Medicine
PROC: 3E0F7GC Introduction of Other Therapeutic Substance into Respiratory Tract, Via Natural or Artificial Opening (ICD-10-PCS; principal; 2016-08-06)
PROC: 0T9B70Z Drainage of Bladder with Drainage Device, Via Natural or Artificial Opening (ICD-10-PCS; 2016-08-06)
DX: J44.1 Chronic obstructive pulmonary disease with (acute) exacerbation (principal); J96.01 Acute respiratory failure with hypoxia; J18.9 Pneumonia, unspecified organism; E11.40 Type 2 diabetes mellitus with diabetic neuropathy, unspecified; E11.65 Type 2 diabetes mellitus with hyperglycemia; I50.9 Heart failure, unspecified; I48.91 Unspecified atrial fibrillation; M19.90 Unspecified osteoarthritis, unspecified site; E78.00 Pure hypercholesterolemia, unspecified; F32.9 Major depressive disorder, single episode, unspecified; I25.2 Old myocardial infarction; I25.10 Atherosclerotic heart disease of native coronary artery without angina pectoris; H91.93 Unspecified hearing loss, bilateral; Z85.46 Personal history of malignant neoplasm of prostate; Z92.3 Personal history of irradiation; G47.30 Sleep apnea, unspecified; Z95.5 Presence of coronary angioplasty implant and graft; Z88.0 Allergy status to penicillin; Z88.8 Allergy status to other drugs, medicaments and biological substances; Z79.4 Long term (current) use of insulin; I10 Essential (primary) hypertension; E66.01 Morbid (severe) obesity due to excess calories; N28.9 Disorder of kidney and ureter, unspecified; Z87.891 Personal history of nicotine dependence
CPT/HCPCS: 36600; 51703; 71010; 80048; 80053; 81001; 82805; 82947; 82948; 83036; 83880; 84443; 84484; 85025; 85379; 93005; 93306; 94620; 94640; 94664; 96374; 96375; J0456; J1815; J1940; J2920; J2930; J7050; J7512

== ENCOUNTER 2016-12-20 22:13 | Inpatient (IN) | payer MEDICARE, OTHER ==
[~2016-12-20] VITALS: Ht 170.2 cm; Wt 107.0 kg
[~2016-12-20 22:13] MED LIST changes: +ALBU1AER5 INH; -ALBU6.7H INH; +ASCO500T PO; +AZIT250T3 PO; -B-1210005 PO; -CARV6.25 PO; +CARV6.252 PO; -CHOL4 PO; +CITR1SOL IRRIGATION; +FURO20TA PO; -GABA300C3 PO; +GABA300C5 PO; +GABA400C5 PO; -LACT PO; -LISI-360 PO; +LOSA25TA PO; -METR250 PO; -NOVOINJ6 SQ; +NOVOLOGSS SQ; +NOVONP2 SQ; +OMEP20CA2 PO; +PRED20 PO; -PRIL20CA PO; -PROS5TAB2 PO; +ROSU1TAB8 PO; -ROSU40 PO; +SPIRCAP INH; -VITA-13 PO; +VITA10003 PO; -[UNRECOGNIZED DRUG - CODE] PO
[2016-12-20 22:17] VITALS: BP 182/96; PULSE 80; RESP 20; TEMP 98.6; O2SAT 98
[2016-12-20 22:23] VITALS: O2SAT 98
[2016-12-20] MEDS ORDERED: HEPARIN SODIUM - IV 10,000 UNITS/10 ML VIAL IV STA (22:23)
[2016-12-20] MEDS ORDERED: ASPIRIN 81 MG CHEW TAB PO STA (22:23)
[2016-12-20] MEDS ORDERED: SODIUM CHLOR 0.9% 1000 ML INJ 1,000 ML IV ONE (22:23)
[2016-12-20] MEDS: NITROGLYCERIN-D5W 50 MG/250 ML 250 ML IV PRN (22:27)
--- NOTE | 2016-12-20 22:31 | PD ---
HPI Chief Complaint: STEMI Alert Time Seen by Provider: 22:18 Travel History International Travel<30 days: No Contact w/Intl Traveler<30days: No Traveled to known affect area: No History of Present Illness HPI 86-year-old male brought in by EMS as a cardiac alert for chest pains and EKG changes. Patient has history of diabetes, hypercholesterolemia, hypertension, CHF, A. fib, not on any antiplatelets or anticoagulants, who began experiencing chest pain about 30 minutes prior to arrival. Upon EMS arrival to his home they noted the patient to be diaphoretic. The patient was also complaining of nausea. He describes substernal chest pressure that radiates to his back. Pain was 10 out of 10. He was given 3 sublingual nitroglycerin with brief/ slight improvement in pain. Upon arrival to the emergency department he is complaining of 10 out of 10 pain, again substernal and radiating to his back. No paresthesias or motor deficits. No dyspnea. He was also given 162 mg of oral aspirin by EMS. He tells me he has a mold maker apprentice, but does not know her name. He is a patient of the MD. [facility] Past Medical History Anemia: Yes Arthritis: Yes Asthma: No Atrial Fibrillation: Yes Anxiety: No Depression: Yes Heart Rhythm Problems: Yes (afib) Cancer: Yes (PROSTATE) Cardiac Catheterization: Yes Cardiovascular Problems: Yes (HEART ATTACK 10 YEARS AGO ) High Cholesterol: Yes Chemotherapy: No Chest Pain: Yes Congestive Heart Failure: Yes COPD: Yes Cerebrovascular Accident: No Coronary Artery Disease: Yes Diabetes: Yes (dM TYPE 2) Diminished Hearing: Yes (BILATERAL HEARING AIDS) Endocrine: Yes Gastrointestinal Disorders: No Genitourinary: Yes Hiatal Hernia: No Hypertension: Yes Immune Disorder: No Implanted Vascular Access Dvce: No Musculoskeletal: Yes Neurologic: No Psychiatric: Yes Reproductive: No Respiratory: Yes Immunizations Current: Yes Myocardial Infarction: Yes Pneumonia: Yes Radiation Therapy: Yes (PROSTATE) Seizures: Yes (CHILDHOOD) Sleep Apnea: Yes Thyroid Disease: No Ulcer: Yes Past Surgical History Appendectomy: Yes Body Medical Devices: "little peg in the L great toe" Cardiac Surgery: Yes (coronary stents) Coronary Stent: Yes Genitourinary Surgery: Yes (took suprapubic cath out) Oral Surgery: Yes (tonsillectomy) Prostatectomy: Yes Tonsillectomy: Yes Other Surgery: Yes Social History Alcohol Use: No Tobacco Use: No Substance Use: No Allergies-Medications (Allergen,Severity, Reaction): Coded Allergies: penicillin G (Unverified Allergy, Severe, 12/05/16) warfarin (Unverified Allergy, Severe, 12/05/16) Reported Meds & Prescriptions Reported Meds & Active Scripts Active Furosemide 20 Mg Tab 20 Mg PO DAILY 30 Days Azithromycin 250 Mg Tab 250 Mg PO DAILY@20 2 Days Prednisone 20 Mg Tab 20 Mg PO BID 3 Days Reported Renacidin Irr (Citric Mdwy-Banjupsiyhp-Lyvldnzgh Carbon Irr) 500 Ml Soln 30 Ml IRRIGATION WEEKLY Spiriva Handihaler (Tiotropium Inh) 18 Mcg Cap 18 Mcg INH DAILY 1 capsule = 18 mcg Rosuvastatin (Rosuvastatin Calcium) 20 Mg Tab 10 Mg PO HS Omeprazole 20 Mg Cap 20 Mg PO AC BREAKFAST Losartan (Losartan Potassium) 25 Mg Tab 12.5 Mg PO DAILY Novolog Inj (Insulin Aspart) 100 Unit/Ml Inj 12 SQ TIDAC Novolin N Inj (Insulin Human NPH) 1,000 Unit/10 Ml Vial 22 Units SQ HS Gabapentin 400 Mg Cap 400 Cap PO HS Gabapentin 300 Mg Cap 300 Mg PO DAILY@0600 Vitamin D-3 (Cholecalciferol) 1,000 Unit Tab 1,000 Units PO DAILY Carvedilol 6.25 Mg Tab 6.25 Mg PO BID Ascorbic Acid 500 Mg Tab 500 Mg PO Proair Respiclick Inh (Albuterol Sulfate) 90 Mcg/Act Aerp 1 Puff INH Q4H PRN Review of Systems Except as stated in HPI: all other systems reviewed are Neg Physical Exam Narrative GENERAL: Well-developed, well-nourished, awake, mild distress secondary to pain , diaphoretic. SKIN: Focused skin assessment warm/diaphoretic. HEAD: Atraumatic. Normocephalic. EYES: Pupils equal and round. No scleral icterus. No injection or drainage. ENT: Mucous membranes pink and moist. NECK: Trachea midline. No JVD. CARDIOVASCULAR: Regular rate and rhythm. Distal pulses brisk and equal bilaterally. RESPIRATORY: No accessory muscle use. Clear to auscultation. Breath sounds equal bilaterally. GASTROINTESTINAL: Abdomen soft, non-tender, nondistended. MUSCULOSKELETAL: No obvious deformities. No clubbing. No cyanosis. No edema. NEUROLOGICAL: Awake and alert. No obvious cranial nerve deficits. Motor grossly within normal limits. Normal speech. PSYCHIATRIC: Appropriate mood and affect; insight and judgment normal. Data Data Last Documented VS Vital Signs Date Time Temp Pulse Resp B/P (MAP) Pulse Ox O2 Delivery O2 Flow Rate FiO2 12/20/16:17 98.6 80 20 182/96 (124) 98 12/20/16 22:15 Room Air 2.00 Orders Orders Troponin I (12/20/16 22:23) Ckmb (Isoenzyme) Profile (12/20/16 22:23) Complete Blood Count With Diff (12/20/16 22:23) I-Stat Profile (12/20/16 22:23) I-Stat Creatinine (12/20/16 22:23) Calcium (12/20/16 22:23) Magnesium (Mg) (12/20/16 22:23) Prothrombin Time / Inr (Pt) (12/20/16 22:23) Act Partial Throm Time (Ptt) (12/20/16 22:23) B-Type Natriuretic Peptide (12/20/16 22:23) Chest, Single Ap (12/20/16 22:23) Electrocardiogram (12/20/16 22:23) Oxygen Administration (12/20/16 22:23) Iv Access Insert/Monitor (12/20/16 22:23) Oximetry (12/20/16 22:23) Sodium Chlor 0.9% 1000 Ml Inj (Ns 1000 M (12/20/16 22:23) Sodium Chloride 0.9% Flush (Ns Flush) (12/20/16 22:30) Heparin Inj (Heparin Inj) (12/20/16 22:23) Aspirin Chew (Aspirin Chew) (12/20/16 22:23) Nitroglycerin-D5w 50 Mg/250 Ml (Nitrogly (12/20/16 22:30) MDM Medical Decision Making Medical Screen Exam Complete: Yes Emergency Medical Condition: Yes Medical Record Reviewed: Yes Interpretation(s) EKG: A. 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 Differential Diagnosis STEMI, dissection, PE, Narrative Course Patient had an EKG performed immediately after arrival to the emergency department. EKG shows acute ST elevations in V2 through V4. STEMI alert was called. Case discussed with on-call mold maker apprentice Dr. Minor who plans to take the patient to the Trailer [facility]. Patient be started on a nitro drip as well as a heparin drip. Patient made aware of plan for cardiac cath. Diagnosis Primary Impression: STEMI (ST elevation myocardial infarction) Qualified Codes: I21.3 - ST elevation (STEMI) myocardial infarction of unspecified site Admitting Information Admitting Physician Requests: Admit Max John MD Dec 20, 2016 22:31
[2016-12-20 22:33] VITALS: BP 176/98
[2016-12-20 22:41] LABS: I-STAT POTASSIUM 4.1 MMOL/L (3.5-4.9); I-STAT SODIUM 139 MMOL/L (138-146)
[2016-12-20 22:44] LABS: AUTOMATED NEUTROPHIL # 6.6 TH/MM3 (1.8-7.7); BASOPHIL # 0.1 TH/MM3 (0-0.2); EOSINOPHIL # 0.7 TH/MM3 (0-0.4); EOSINOPHIL % 7.1 % (0.0-4.0); HEMATOCRIT 34.1 % (39.0-51.0); HEMO FLAGS DIFF FINAL; LYMPH % 12.7 % (9.0-44.0); LYMPHOCYTE # 1.2 TH/MM3 (1.0-4.8); MEAN CORPUSCULAR HGB CONC 32.6 % (32.0-36.0); MONO % 9.6 % (0.0-8.0); NEUT % 69.6 % (16.0-70.0); PLATELET COUNT 222 TH/MM3 (150-450); RED BLOOD COUNT 3.96 MIL/MM3 (4.50-5.90); RED CELL DISTRIBUTION WIDTH 15.2 % (11.6-17.2); WHITE BLOOD COUNT 9.5 TH/MM3 (4.0-11.0)
[2016-12-20] MEDS ORDERED: INSULIN HUMAN REGULAR 1,000 UNITS/10 ML VIAL SQ ONE (22:45)
[2016-12-20 22:54] VITALS: BP 178/85
[2016-12-20] MEDS ORDERED: HEPARIN-NS/PF INJ 1,000 ML ONE ×2 (22:54→23:25)
[2016-12-20 22:56] LABS: APTT (PATIENT) 26.1 SEC (24.3-30.1); INTERNATIONAL NORMALIZED RATIO 0.9 RATIO; PROTHROMBIN TIME - PATIENT 10.2 SEC (9.8-11.6)
[2016-12-20 23:00] LABS: CREATINE KINASE 121 U/L (39-308)
--- NOTE | 2016-12-20 23:11 | RADRPT ---
EXAM DATE/TIME: 12/20/2016 22:30 [facility] COMPARISON: CHEST SINGLE AP, August 06, 2016, 13:24. INDICATIONS : Stemi alert. MEDICAL HISTORY : Chronic obstructive pulmonary disease. Hypercholesterolemia. Hypertension. Heart attack, CHF, PREETI B, Pneumonia, Coronary artery disease SURGICAL HISTORY : Coronary stents. ENCOUNTER: Initial ACUITY: 1 day PAIN SCORE: Non-responsive. LOCATION: Bilateral chest FINDINGS: The heart size is enlarged. There appears to be a coronary artery stent in place. The lungs are clear . No effusion is seen. CONCLUSION: Cardiomegaly. Storm Fernandez MD on December 20, 2016 at 23:09 Board Certified Radiologist. This report was verified electronically.
[2016-12-20 23:13] LABS: CKMB 2.8 NG/ML (0.5-3.6)
[2016-12-20] MEDS ORDERED: STERILE WATER FOR INJECTION 10 ML VIAL ONE (23:13)
[2016-12-20] MEDS ORDERED: BIVALIRUDIN 250 MG VIAL ONE ×2 (23:13→23:56)
[2016-12-20] MEDS ORDERED: ADENOSINE IV SOLN 3 MG/ML 2 ML VIAL ONE (23:34)
[2016-12-21] VITALS (23 sets, daily range): BP systolic 114–151; BP diastolic 58–96; PULSE 67–102; RESP 16–22; TEMP 97.4–98.6; O2SAT 97–100
[2016-12-21] MEDS ORDERED: SODIUM CHLOR 0.9% 1000 ML INJ 1,000 ML IV SCH (00:06)
[2016-12-21] MEDS ORDERED: BIVALIRUDIN INJ 250 MG in SODIUM CHLORIDE 0.9% INJ 50 ML IV SCH (00:06)
[2016-12-21] MEDS ORDERED: TICAGRELOR 90 MG TAB PO ONE (00:07)
[2016-12-21] MEDS ORDERED: TEMAZEPAM 15 MG CAP PO PRN (00:15)
[2016-12-21] MEDS ORDERED: oxyCODONE/ACETAMINOPHEN 5 MG/325 MG TAB PO PRN (00:15)
[2016-12-21] MEDS ORDERED: ONDANSETRON HCL 4 MG/2 ML VIAL IVP PRN (00:15)
[2016-12-21] MEDS ORDERED: LIDOCAINE 2% JELLY 30 ML TUBE TOP PRN (00:15)
[2016-12-21] MEDS ORDERED: MISC INFORMATION XX ONE (00:15)
[2016-12-21] MEDS ORDERED: BACITRACIN OINT 0.9 GM PKT TOP ONE (00:15)
[2016-12-21] MEDS: NITROGLYCERIN-D5W 50 MG/250 ML 250 ML IV PRN (00:20)
[2016-12-21] MEDS ORDERED: ATROPINE SULFATE 1 MG/10 ML SYRINGE ONE (00:35)
--- NOTE | 2016-12-21 00:37 | CATHPROC ---
[facility] Report Study Information Study Number Admission Scheduled Start Study Start [id number] Dec 20 2016 10:32PM 12/20/2016 Dec 20 2016 10:55PM [place] [facility] Cardiac Catheterization Admit Source Facility Department Emergency department [facility] - Filtration Plant Mechanic Physician and Clinical Staff Initial [facility] Garbage Worker Damari LunaRN Garbage Worker Tonia Gooden,EMIL Recorder Isabelle Scott,RT(R) Recorder Baldomero Ríos RCIS(BS) Scrub Darnell FatimaRT(R) Procedures Performed Procedure Location (Site) Vessel Name Coronary Angiograms LCA Left Coronary Coronary Angiograms RCA Right Coronary L Heart Cath PTCA LAD Mid Left Coronary Stent LAD Mid Left Coronary Wire insertion Radial (right) Radial Art. Equipment Time Cocktail Waitress Description Size Mfg Part Number Used/Scraped 23:37 [employer] WIRE, DOC EXTENSION 145CM 145CM [id number] *[id number] Used TRANSDUCER, TRUWAVE [id number] 23:03 STEINBERG LADD * Used W/STOCKCOCK *[id number] 23:32 [employer] BALLOON, 2.5 20MM EMERGE MR 2.5 20MM Used *[phone] *[id number] *[id number] *[id number] 23:03 [employer] INDUSTRIES PACK, CCL CUSTOM * Used *[id number] 23:03 [employer] [facility] SUPPORT, ARTERIAL ADULT [id number] *[id number] Used [id number] 23:03 [employer] PACER PEN, SKIN DUAL W/ RULER * Used *[id number] BALLOON, 1.25 X 6MM SPRINTER [id number] 23:38 [employer] 6MM Used LEGEND OTW *[id number] 23:47 [employer] BALLOON, 2.5 X 25MM EUPHORA 25MM Used *[id number] 23:53 [employer] STENT, 2.5 26 INTEGRITY 2.5 26 Used *[id number] 23:57 [employer] STENT, 2.5 26 INTEGRITY 2.5 26 Used *[id number] [id number] 23:34 [employer] 30 YAMILE INDEFLATOR Used *[id number] BAND, RADIAL COMPRESSION TR [id number] 00:04 [employer] MEDICAL 29CM Used LARGE 29 *[id number] SHEATH, FR6 RADIAL PRELUDE 23:03 [employer] FR 6 [id number] Used EASE 11CM [id number] 23:03 [employer] MEDICAL WIRE, EXCHANGE 260CM 3MMJ 260CM Used *[id number] 23:03 [employer] OMNIPAQUE, 350 MG, 150ML 150ML [id number] Used CATHETER, FR4 SPIROFLEX [id number] 23:27 [employer] FR 4 Used ANGIOJET RX *[id number] 23:03 [employer] BLANKET,WARM AIR CCL * Used *[id number] WIRE, RUNTHROUGH NS FLOPPY [id number] 23:13 [employer] 180CM Used .014 180CM *[id number] WIRE, RUNTHROUGH NS FLOPPY 25-1013 23:40 [employer] 300CM Used .014 300CM *[id number] Equipment Model, Serial, Lot Number and Expiration Data Description Model Number Serial Number Lot Number Expiration Date BALLOON, 2.5 X 25MM EUPHORA [id number] 12-05-2017 BALLOON, 2.5 20MM EMERGE MR [id number] 07-07-2019 CATHETER, FR4 SPIROFLEX [id number] 03-21-2018 ANGIOJET RX STENT, 2.5 26 INTEGRITY [id number] 08-01-2018 STENT, 2.5 26 INTEGRITY [id number] 08-01-2018 History: Allergies Allergy Reaction warfarin penicillin G History: Risk Factors Family History of Hypertension Dyslipidemia Previous OR Previous Heart Failure Premature CAD No No No No No Prior Valve Prior PCI Prior CABG Surgery No No No Cerebrovascular Peripheral Artery Chronic Lung On Dialysis Diabetes Disease Disease Disease No No No No No History: Symptoms/Diagnosis Selection Items Angina-unstable Chest pain History: Stress Tests Stress or Imaging Studies Performed No Labs Hgb (g/dl) Hct (%) 11.60-17.00 35.00-51.00 11.6 34 BUN (mg/dl) Creatinine (mg/dl) BUN:Creatinine (1:x) 7.00-18.00 0.50-1.30 10.00-20.00 38 1.9 20 Na (meq/l) K (meq/l) Cl (meq/l) 136.00-145.00 3.50-5.10 98.00-107.00 139 4.1 1.4 Medication Medication Total Dose (Bolus/Oral) Medication Total Dosage/Unit 1% XYLOCAINE 20 mL ADENOSINE 36 mcg ANGIOMAX BOLUS 15 mL BRILLINTA 180 mg FENTANYL 75 mcg NTG (IC) 300 mcg VERSED 2 mg Medications (Bolus/Oral) Medication Time Given Dosage/Unit Administered By Reason 1% XYLOCAINE 12/20/2016 11:11:07 PM 20 mL Marin Frazier 20 mL 1% XYLOCAINE given in lab by Marin Frazier in Right Radial via Subcutaneous. Ordered by Marin Frazier. VERSED 12/20/2016 11:12:22 PM 1 mg Marin Frazier 1 mg VERSED given in lab by Marin Frazier via Peripheral IV. Ordered by Marin Frazier. FENTANYL 12/20/2016 11:13:23 PM 25 mcg Marin Frazier 25 mcg FENTANYL given in lab by Marin Frazier via Peripheral IV. Ordered by Marin Frazier. ANGIOMAX BOLUS 12/20/2016 11:16:36 PM 15 mL Damari Luna 15 mL ANGIOMAX BOLUS given in lab by Damari Luna, EMIL in Left Hand via Peripheral IV. Ordered by Marin Muro. VERSED 12/20/2016 11:38:00 PM 1 mg Marin Frazier 1 mg VERSED given in lab by Marin Frazier in Left Hand via Peripheral IV. Ordered by Marin Frazier. FENTANYL 12/20/2016 11:39:00 PM 50 mcg Marin Frazier 50 mcg FENTANYL given in lab by Marin Frazier in Left Hand via Peripheral IV. Ordered by Dalton Frazier. ADENOSINE 12/20/2016 11:43:30 PM 18 mcg Marin Frazier 18 mcg ADENOSINE given in lab by Marin Frazier in Right Radial via Intra-coronary. Ordered by Marin Frazier. 3 ml at 6 mcg per ml NTG (IC) 12/21/2016 12:01:06 AM 300 mcg Marin Frazier 300 mcg NTG (IC) given in lab by Marin Frazier in Right Radial via Intra-coronary. Ordered by Marin Frazier. ADENOSINE 12/21/2016 12:01:25 AM 18 mcg Marin Frazier 18 mcg ADENOSINE given in lab by Marin Frazier in Right Radial via Intra-coronary. Ordered by Marin Frazier. 3 ml at 6 mcg per ml BRILLINTA 12/21/2016 12:12:00 AM 180 mg Damari Luna 180 mg BRILLINTA given in lab by Damari Luna RN in Per mouth via Oral. Ordered by Marin Frazier. Medication (Drip) Medication Time Given Dosage/Unit Concentration/Unit Diluent (ml) Solution ANGIOMAX DRIP 12/20/2016 11:17:48 PM 1.75 mg/kg/hr 250 mg 50 NaCl .9 1.75 mg/kg/hr ANGIOMAX DRIP given in lab by Damari Luna RN in Left Hand via Peripheral IV. Pump/D rip Flow = 35.32 ml/hr using NaCl .9 with a concentration of 250 mg in 50 ml. Ordered by Marin Frazier. IV Solutions 12/20/2016 11:11:51 PM 0 mL (IV) 500 NaCl .9 Patient arrived on IV Solutions in Left Hand via Peripheral IV. Pump/Drip Flow = 20 ml/hr using NaCl .9. Ordered by Marin Frazier. NITROGLYCERIN DRIP 12/20/2016 11:04:00 PM 80 mcg/min 50 mg 250 D5W Patient arrived on 80 mcg/min NITROGLYCERIN DRIP in Right Antecubital via Peripheral IV. Pump/Drip Fl ow = 24 ml/hr using D5W with a concentration of 50 mg in 250 ml. NITROGLYCERN DRIP 12/20/2016 11:26:04 PM 80 mcg/min g 0 STOPPED 80 mcg/min NITROGLYCERN DRIP STOPPED given in lab by Damari Luna RN in Right Antecubital via Ofe pheral IV. Pump/Drip Flow = 0 ml/hr using [Solution Name]. Ordered by Marin Frazier. Initial Case Assessment Cardiovascular HR Rhythm NIBP 68 stemi 157/86 Edema Present Skin color Skin None Normal Warm Circulatory - Right Pulses Dorsalis Pedis Femoral Radial 1 2 2 Scale (0,1,2,3,4,d) Circulatory - Left Pulses Dorsalis Pedis Femoral Radial 1 2 Scale (0,1,2,3,4,d) Neurological State Oriented to time-place- Alert Moves all extremities person Respiration - General Respiration Rate SpO2 (%) O2 (lpm) (B/min) 19 98 2 Chronological Log Time Study Chronological Log 23:03:11 Patient arrived via Bed. 23:03:14 Patient Name, D.O.B, / Armband Verified By R.N. 23:03:19 Consent signed by the physician and the patient and verified by the Filtration Plant Mechanic staff. 23:03:30 Presedation assessment performed by Filtration Plant Mechanic RN. 23:03:31 Allens test performed on the right radial and ulnar artery. 23:03:34 Patient has been NPO for Less than 6Hrs. 23:03:36 Skin Breakdown- 23:03:37 Patient Warmer Placed on the Table. 23:03:38 Disposable Defibrillator Pads Placed On Patient. 23:03:39 Bobby Prominences Protected 23:03:41 A # 20 IV was noted in the Antecubital (right). Grade = 0 23:03:41 A # 20 IV was noted in the Hand (left). Grade = 0 Assessment: Initial Case, HR=68 BPM, Rhythm=stemi, YLEF=168/86 mmhg, Edema=None, Color=Normal, Skin = Warm Right Pulses: Magdiel Ped=1, Femoral=2, Radial=2 23:03:55 Left Pulses: Magdiel Ped=1, Femoral=2 Neurological: State=Alert, Ox3, ARVIZU Respiration: Resp=19 B/min, SpO2=98 %, O2=2 lpm Patient arrived on 80 mcg/min NITROGLYCERIN DRIP in Right Antecubital via Peripheral IV. Pump/D rip Flow = 24 ml/hr 23:04:00 using D5W with a concentration of 50 mg in 250 ml. 23:04:14 here Vitals capture started with the following parameters, Patient=Adult, Interval=5 min, Initial Pr znllto=228 mmHg, 23:07:53 Deflation Rate=5 mmHg, Cuff placed on Left Arm 23:08:47 Reference ECG taken 23:09:01 HR=74 bpm, NPRK=709/102 mmhg, SpO2=96.0 %, Resp=19 B/min Time Out. Correct patient, correct procedure,correct physician, ,power injector loaded or not l oaded with contrast with 23:10:26 surgical team present. Time Out Concurred by MD, individual staff and SHOWPLACE MANAGER in procedure 23:11:01 Case Start 23:11:07 20 mL 1% XYLOCAINE given in lab by Marin Frazier in Right Radial via Subcutaneous. Ordered by Marin Frazier. 23:11:24 Pressure channel 1 zeroed. Patient arrived on IV Solutions in Left Hand via Peripheral IV. Pump/Drip Flow = 20 ml/hr using NaCl .9. Ordered by 23:11:51 Marin Frazier. 23:12:22 1 mg VERSED given in lab by Marin Frazier via Peripheral IV. Ordered by Marin Frazier. 23:12:30 Access site was Right Radial Artery. A SHEATH, FR6 RADIAL PRELUDE EASE 11CM FR 6 was advanced into the Radial (right) using the Perc utaneous ::51 technique. 23:13:23 25 mcg FENTANYL given in lab by Marin Frazier via Peripheral IV. Ordered by Marin Frazier . A JR 5.0 INFINITI CATHETER FR 6 was advanced over a wire. OMNIPAQUE, 350 MG, 150ML 150ML was us ed for :13:51 injections. 23:14:06 HR=70 bpm, OVTK=921/97 mmhg, SpO2=97.0 %, Resp=12 B/min Recorded Pressure: Ao, HR=73, Condition=Condition 1 23:14:38 (Aorta) Ao 156/83/115 23:15:03 The RCA was injected and visualized at various angles. OMNIPAQUE, 350 MG, 150ML 150ML used . After removing the current catheter a AL 3 GUIDE CATHETER FR 6 was advanced over a WIRE, EXCHAN GE 260CM 23:15:31 3MMJ 260CM. 15 mL ANGIOMAX BOLUS given in lab by Damari Luna RN in Left Hand via Peripheral IV. Ordered by Freddie 23:16:36 Marin. 1.75 mg/kg/hr ANGIOMAX DRIP given in lab by Damari Luna, EMIL in Left Hand via Peripheral IV. Pump/Drip Flow = 23:17:48 35.32 ml/hr using NaCl .9 with a concentration of 250 mg in 50 ml. Ordered by Marin Frazier. 23:18:32 HR=80 bpm, GSWN=192/81 mmhg, SpO2=94.0 %, Resp=18 B/min 23:19:17 A WIRE, RUNTHROUGH NS FLOPPY .014 180CM 180CM was inserted via Radial (right). After removing the current catheter a XB LAD 4.0 GUIDE CATHETER FR 6 was advanced over a WIRE, RUNTHROUGH 23:21:03 NS FLOPPY .014 180CM 180CM. 23:21:05 Wire removed 23:22:26 A WIRE, EXCHANGE 260CM 3MMJ 260CM was inserted via Radial (right). 23:23:29 HR=67 bpm, CKJZ=139/86 mmhg, SpO2=97.0 %, Resp=17 B/min 23:23:30 Wire removed 23:23:36 The LCA was injected and visualized at various angles. OMNIPAQUE, 350 MG, 150ML 150ML used . 23:24:21 A WIRE, RUNTHROUGH NS FLOPPY .014 180CM 180CM was inserted via Radial (right). 80 mcg/min NITROGLYCERN DRIP STOPPED given in lab by Damari Luna RN in Right Antecubital vi a Peripheral IV. 23:26:04 Pump/Drip Flow = 0 ml/hr using [Solution Name]. Ordered by Marin Frazier. 23:28:33 HR=81 bpm, FWTR=837/97 mmhg, SpO2=95.0 %, Resp=20 B/min A CATHETER, FR4 SPIROFLEX ANGIOJET RX FR 4 was advanced over a wire. OMNIPAQUE, 350 MG, 150ML 1 50ML was 23:29:34 used for injections. 23:29:50 Angio-Jet in progress. 23:31:50 Catheter was removed A BALLOON, 2.5 20MM EMERGE MR 2.5 20MM was inserted over WIRE, RUNTHROUGH NS FLOPPY .014 180CM 180CM 23:32:40 via the Radial (right). 23:33:36 HR=64 bpm, KJSI=603/104 mmhg, SpO2=96.0 %, Resp=20 B/min A BALLOON, 2.5 20MM EMERGE MR 2.5 20MM over a WIRE, RUNTHROUGH NS FLOPPY .014 180CM 180CM in th e LAD 23:33:42 Mid was inflated using a 30 YAMILE INDEFLATOR at 8 yamile for 15 sec. A BALLOON, 2.5 20MM EMERGE MR 2.5 20MM over a WIRE, RUNTHROUGH NS FLOPPY .014 180CM 180CM in th e LAD 23:34:28 Mid was inflated using a 30 YAMILE INDEFLATOR at 8 yamile for 15 sec. 23:38:00 1 mg VERSED given in lab by Marin Frazier in Left Hand via Peripheral IV. Ordered by Marin Frazier. 23:38:33 HR=75 bpm, CZZB=718/106 mmhg, SpO2=95.0 %, Resp=20 B/min 23:38:42 A WIRE, DOC EXTENSION 145CM 145CM was inserted via Radial (right). 23:39:00 50 mcg FENTANYL given in lab by Marin Frazier in Left Hand via Peripheral IV. Ordered by Marin Pierre. A BALLOON, 1.25 X 6MM SPRINTER LEGEND OTW 6MM was inserted over WIRE, DOC EXTENSION 145CM 145CM via 23:39:38 the Radial (right). 23:41:22 Wire removed 23:42:00 A WIRE, RUNTHROUGH NS FLOPPY .014 300CM 300CM was inserted via Radial (right). 18 mcg ADENOSINE given in lab by Marin Frazier in Right Radial via Intra-coronary. Ordered by Marin Frazier. 3 ml 23:43:30 at 6 mcg per ml 23:43:38 HR=75 bpm, UIJS=030/107 mmhg, SpO2=93.0 %, Resp=16 B/min 23:45:50 Balloon Removed. A BALLOON, 2.5 X 25MM EUPHORA 25MM over a WIRE, RUNTHROUGH NS FLOPPY .014 300CM 300CM in the LA D Mid 23:47:51 was inflated using a 30 YAMILE INDEFLATOR at 8 yamile for 20 sec. A BALLOON, 2.5 X 25MM EUPHORA 25MM over a WIRE, RUNTHROUGH NS FLOPPY .014 300CM 300CM in the LA D Mid 23:48:20 was inflated using a 30 YAMILE INDEFLATOR at 8 yamile for 20 sec. 23:48:35 HR=72 bpm, PZVN=461/110 mmhg, SpO2=94.0 %, Resp=17 B/min A BALLOON, 2.5 X 25MM EUPHORA 25MM over a WIRE, RUNTHROUGH NS FLOPPY .014 300CM 300CM in the LA D Mid 23:48:46 was inflated using a 30 YAMILE INDEFLATOR at 8 yamile for 20 sec. A BALLOON, 2.5 X 25MM EUPHORA 25MM over a WIRE, RUNTHROUGH NS FLOPPY .014 300CM 300CM in the LA D Mid 23:49:04 was inflated using a 30 YAMILE INDEFLATOR at 12 yamile for 20 sec. An STENT, 2.5 26 INTEGRITY 2.5 26 Bare Metal Stent was inserted through a XB LAD 4.0 GUIDE CATH ETER FR 6 over 23:53:16 a WIRE, RUNTHROUGH NS FLOPPY .014 300CM 300CM. 23:53:38 HR=87 bpm, DVOW=851/119 mmhg, SpO2=96.0 %, Resp=18 B/min A STENT, 2.5 26 INTEGRITY 2.5 26 was deployed using a 30 YAMILE INDEFLATOR at 16 atmospheres for 1 4 seconds in 23:54:08 the LAD Mid. 23:54:27 Re-inflated the stent balloon in the LAD Mid to 9 YAMILE for 25 seconds. 23:55:00 Delivery device removed 23:58:37 HR=53 bpm, WSLN=784/92 mmhg, SpO2=92.0 %, Resp=20 B/min A STENT, 2.5 26 INTEGRITY 2.5 26 was advanced through a XB LAD 4.0 GUIDE CATHETER FR 6 over a W LUPE, 23:58:47 RUNTHROUGH NS FLOPPY .014 300CM 300CM. A STENT, 2.5 26 INTEGRITY 2.5 26 was deployed using a 30 YAMILE INDEFLATOR at 16 atmospheres for 2 0 seconds in 23:59:14 the LAD Mid. 23:59:34 Re-inflated the stent balloon in the LAD Mid to 12 YAMILE for 10 seconds. 23:59:42 Re-inflated the stent balloon in the LAD Mid to 12 YAMILE for 10 seconds. 0:00:20 Delivery device removed 0:01:06 300 mcg NTG (IC) given in lab by Marin Frazier in Right Radial via Intra-coronary. Ordere d by Marin Frazier. 18 mcg ADENOSINE given in lab by Marin Frazier in Right Radial via Intra-coronary. Ordered by Marin Frazier. 3 ml 0:01:25 at 6 mcg per ml 0:02:36 Wire removed 0:02:40 Catheter was removed 0:03:26 Case End 0:03:34 HR=72 bpm, EWSB=042/86 mmhg, SpO2=92.0 %, Resp=20 B/min 0:08:29 HR=75 bpm, EGWW=205/99 mmhg, SpO2=93.0 %, Resp=19 B/min 0:12:00 180 mg BRILLINTA given in lab by Damari Luna, RN in Per mouth via Oral. Ordered by Marin Parisi. Radial Compression Device Used. 17 mLs of air placed in BAND, RADIAL COMPRESSION TR LARGE 29 2 9CM. Affected 0:12:49 hand 98 % O2 saturation. 0:13:08 No case complications noted. 0:13:12 Cine recording checked. 0:13:14 Bedside Report will be given. 0:13:16 Implantable Device card placed in patient's chart. 0:13:19 Contrast Scanned 0:13:34 HR=84 bpm, ERWE=573/99 mmhg, SpO2=98.0 %, Resp=20 B/min 0:13:38 A Left Heart Cath was performed. 0:18:35 HR=82 bpm, JHZF=657/103 mmhg, SpO2=96.0 %, Resp=20 B/min 0:27:15 Vitals capture stopped. 0:29:30 Patient moved to stretcher End Study - Contrast Media Used In Study Contrast Total Opened (mL) Total Used (mL) Total Wasted (mL) Omnipaque 110 110 0 End Study - Maximum Contrast Load Max Contrast Load (mL) 265.6 End Study - Radiation Exposure Fluoro Time (minutes) 16.3 End Study - Patient Disposition Complications Transferred To Interventional Outcome No Telemetry Bed successful
[2016-12-21] MEDS: ISOSORBIDE MONONITRATE 60 MG TAB PO SCH ×2 (00:54→07:00)
[2016-12-21] MEDS: MORPHINE SULFATE 4 MG/ML INJ IV PUSH PRN ×3 (00:55→04:52)
[2016-12-21] MEDS: oxyCODONE/ACETAMINOPHEN 10 MG/325 MG TAB PO PRN ×2 (00:55→04:50)
[2016-12-21] MEDS ORDERED: GLUCAGON 1 MG/ML VIAL OTHER PRN ×2 (02:45→07:45)
[2016-12-21] MEDS ORDERED: DEXTROSE 50% IN WATER 50 ML VIAL(D50) IV PRN ×2 (02:45→07:45)
[2016-12-21] MEDS: hydrALAZINE HCL 20 MG/ML VIAL IV PUSH PRN (03:16)
[2016-12-21] MEDS: RESP: ALBUTEROL 2.5 MG/IPRATROPIUM 0.5 MG NEB (PRN) NEB (03:16)
--- NOTE | 2016-12-21 07:27 | PD.CARD.PN ---
Subjective Subjective Remarks minimal CP doing well Objective Vital Signs / I&O Vital Signs Date Time Temp Pulse Resp B/P (MAP) Pulse Ox O2 Delivery O2 Flow Rate FiO2 12/21/16 05:11 97.6 94 16 114/69 (84) 99 12/21/16 00:30 97.4 72 16 151/96 (114) 97 12/21/16 00:20 65 12/20/16 22:55 63 12/20/16 22:54 63 22 178/85 (116) 99 Nasal Cannula 2.00 12/20/16 22:45 69 180/83 12/20/16 22:40 70 170/88 12/20/16 22:33 176/98 (124) 12/20/16 22:27 70 182/96 12/20/16 22:23 98 2.00 12/20/16 22:23 98 Nasal Cannula 23.00 12/20/16 22:17 98.6 80 20 182/96 (124) 98 12/20/16 22:15 Room Air 2.00 I/O 12/20/16 12/20/16 12/20/16 12/21/16 12/21/16 12/21/16 07:00 15:00 23:00 07:00 15:00 23:00 Intake Total 1630 ml Output Total 600 ml Balance 1030 ml Intake Oral 480 ml IV Total 1150 ml Output Urine Total 600 ml Physical Exam GENERAL: SKIN: Warm and dry. HEAD: Normocephalic. EYES: No scleral icterus. No injection or drainage. NECK: Supple, trachea midline. No JVD or lymphadenopathy. CARDIOVASCULAR: Regular rate and rhythm without murmurs, gallops, or rubs. RESPIRATORY: Breath sounds equal bilaterally. No accessory muscle use. GASTROINTESTINAL: Abdomen soft, non-tender, nondistended. MUSCULOSKELETAL: No cyanosis, or edema. BACK: Nontender without obvious deformity. No CVA tenderness. Laboratory Laboratory Tests Test 12/20/16 22:25 White Blood Count 9.5 TH/MM3 Red Blood Count 3.96 MIL/MM3 Hemoglobin 11.1 GM/DL Bedside Hemoglobin 11.6 G/DL Hematocrit 34.1 % Bedside Hematocrit 34.0 % Mean Corpuscular Volume 86.0 FL Mean Corpuscular Hemoglobin 28.0 PG Mean Corpuscular Hemoglobin Concent 32.6 % Red Cell Distribution Width 15.2 % Platelet Count 222 TH/MM3 Mean Platelet Volume 8.8 FL Neutrophils (%) (Auto) 69.6 % Lymphocytes (%) (Auto) 12.7 % Monocytes (%) (Auto) 9.6 % Eosinophils (%) (Auto) 7.1 % Basophils (%) (Auto) 1.0 % Neutrophils # (Auto) 6.6 TH/MM3 Lymphocytes # (Auto) 1.2 TH/MM3 Monocytes # (Auto) 0.9 TH/MM3 Eosinophils # (Auto) 0.7 TH/MM3 Basophils # (Auto) 0.1 TH/MM3 CBC Comment DIFF FINAL Differential Comment Prothrombin Time 10.2 SEC Prothromb Time International Ratio 0.9 RATIO Activated Partial Thromboplast Time 26.1 SEC Bedside Sodium 139 MMOL/L Bedside Potassium 4.1 MMOL/L Bedside Chloride 104 MMOL/L Bedside Blood Urea Nitrogen 38 MG/DL Bedside Creatinine 1.9 MG/DL Bedside Glucose 330 MG/DL Calcium Level 8.5 MG/DL Magnesium Level 2.0 MG/DL Total Creatine Kinase 121 U/L Creatine Kinase MB 2.8 NG/ML Troponin I 0.07 NG/ML B-Type Natriuretic Peptide 225 PG/ML Imaging Last Impressions Chest X-Ray 12/20/16 2223 Signed Impressions: Service Date/Time: November 22:30 - CONCLUSION: Cardiomegaly. Storm Fernandez MD Assessment and Plan Assessment and Plan STEMI - PCI BMS (due to prior bleeding history) mid LAD. asa brillinta statin bb monitor BP repeat Cr echo today DC IVF. mild CHF ambulate PT CM for disposition DC planning Marin Frazier MD Dec 21, 2016 07:27
[2016-12-21] MEDS: TICAGRELOR 90 MG TAB PO SCH ×2 (07:55→22:26)
[2016-12-21] MEDS: CARVEDILOL 3.125 MG TAB PO SCH ×2 (07:56→22:17)
[2016-12-21] MEDS: ASPIRIN 81 MG CHEW TAB PO SCH (07:56)
--- NOTE | 2016-12-21 09:08 | PD.CONS ---
[facility] By Dr. Frazier Reason for Consult Medical management Primary Care Physician [facility] Diagnoses: (1) STEMI (ST elevation myocardial infarction) (2) DM (diabetes mellitus) (3) Chronic kidney disease, stage III (moderate) (4) Chronic obstructive pulmonary disease (5) Atrial fibrillation (6) Hypertension (7) Hyperlipidemia History of Present Illness The patient is an 86-year-old male with history of coronary artery disease, diabetes, hypertension, atrial fibrillation. He presented to the emergency department with complaint of chest pain. He was noted to have EKG changes and STEMI alert was called. He was started on aspirin, heparin, nitroglycerin. Cardiology was contacted. Cardiac catheterization was done with placement of bare metal stent. The patient denies chest pain currently. He does have pain in his upper back. He reports chronic dyspnea related to COPD. He has a chronic indwelling Cortez catheter, which is due to be changed today. Review of Systems Constitutional: DENIES: Fever, Chills, Night Sweats Eyes: DENIES: Blurred vision, Vision loss Ears, nose, mouth, throat: DENIES: Hearing loss Respiratory: COMPLAINS OF: Shortness of breath, DENIES: Cough, Wheezing, Sputum production Cardiovascular: COMPLAINS OF: Chest pain (resolved), Dyspnea on Exertion, Lower Extremity Edema, DENIES: Palpitations Gastrointestinal: DENIES: Abdominal pain, Constipation, Diarrhea, Nausea, Vomiting Genitourinary: DENIES: Urinary frequency, Urinary incontinence, Urgency, Hematuria, Dysuria, Nocturia Musculoskeletal: COMPLAINS OF: Joint pain, DENIES: Muscle aches Integumentary: DENIES: Pruritus, Rash Hematologic/lymphatic: DENIES: Bruising Neurologic: DENIES: Headache Past Family Social History Allergies: Coded Allergies: penicillin G (Unverified Allergy, Severe, 12/05/16) warfarin (Unverified Allergy, Severe, 12/05/16) Past Medical History Diabetes mellitus Hypertension Hyperlipidemia Questionable history of CHF COPD History of prostate cancer Past Surgical History Prostate surgery Appendectomy Reported Medications Furosemide 20 Mg Tab 20 Mg PO DAILY 30 Days Azithromycin 250 Mg Tab 250 Mg PO DAILY@20 2 Days Prednisone 20 Mg Tab 20 Mg PO BID 3 Days Renacidin Irr (Citric Yyhp-Hwjvcwfpkmz-Mmoljyajh Carbon Irr) 500 Ml Soln 30 Ml IRRIGATION WEEKLY Spiriva Handihaler (Tiotropium Inh) 18 Mcg Cap 18 Mcg INH DAILY 1 capsule = 18 mcg Rosuvastatin (Rosuvastatin Calcium) 20 Mg Tab 10 Mg PO HS Omeprazole 20 Mg Cap 20 Mg PO AC BREAKFAST Losartan (Losartan Potassium) 25 Mg Tab 12.5 Mg PO DAILY Novolog Inj (Insulin Aspart) 100 Unit/Ml Inj 12 SQ TIDAC Novolin N Inj (Insulin Human NPH) 1,000 Unit/10 Ml Vial 22 Units SQ HS Gabapentin 400 Mg Cap 400 Cap PO HS Gabapentin 300 Mg Cap 300 Mg PO DAILY@0600 Vitamin D-3 (Cholecalciferol) 1,000 Unit Tab 1,000 Units PO DAILY Carvedilol 6.25 Mg Tab 6.25 Mg PO BID Ascorbic Acid 500 Mg Tab 500 Mg PO Proair Respiclick Inh (Albuterol Sulfate) 90 Mcg/Act Aerp 1 Puff INH Q4H PRN Family History Pulmonary disease Social History Denies alcohol, tobacco, or illicit drug use. Physical Exam Vital Signs Vital Signs Date Time Temp Pulse Resp B/P (MAP) Pulse Ox O2 Delivery O2 Flow Rate FiO2 12/21/16 07:43 75 12/21/16 07:00 97.4 84 18 117/58 (77) 100 12/21/16 05:11 97.6 94 16 114/69 (84) 99 12/21/16 00:30 97.4 72 16 151/96 (114) 97 12/21/16 00:20 65 12/20/16 22:55 63 12/20/16 22:54 63 22 178/85 (116) 99 Nasal Cannula 2.00 12/20/16 22:45 69 180/83 12/20/16 22:40 70 170/88 12/20/16 22:33 176/98 (124) 12/20/16 22:27 70 182/96 12/20/16 22:23 98 2.00 12/20/16 22:23 98 Nasal Cannula 23.00 12/20/16 22:17 98.6 80 20 182/96 (124) 98 12/20/16 22:15 Room Air 2.00 Physical Exam GENERAL: Obese elderly male in no acute distress. HEENT: Normocephalic, atraumatic. Pupils equal, round and reactive. Extraocular movements intact. No scleral icterus. No injection or drainage. Oropharynx is clear. Mucous membranes are moist. CARDIOVASCULAR: Regular rate and rhythm without murmurs, gallops, or rubs. RESPIRATORY: Clear to auscultation. No wheezes, rales, or rhonchi. Breathing is non-labored. GASTROINTESTINAL: Abdomen soft, non-tender, nondistended. EXTREMITIES: No lower extremity edema. Chronic venous stasis changes. No calf tenderness. PSYCH: Alert and oriented x 3. Laboratory Laboratory Tests Test 12/20/16 22:25 White Blood Count 9.5 Red Blood Count 3.96 Hemoglobin 11.1 Bedside Hemoglobin 11.6 Hematocrit 34.1 Bedside Hematocrit 34.0 Mean Corpuscular Volume 86.0 Mean Corpuscular Hemoglobin 28.0 Mean Corpuscular Hemoglobin Concent 32.6 Red Cell Distribution Width 15.2 Platelet Count 222 Mean Platelet Volume 8.8 Neutrophils (%) (Auto) 69.6 Lymphocytes (%) (Auto) 12.7 Monocytes (%) (Auto) 9.6 Eosinophils (%) (Auto) 7.1 Basophils (%) (Auto) 1.0 Neutrophils # (Auto) 6.6 Lymphocytes # (Auto) 1.2 Monocytes # (Auto) 0.9 Eosinophils # (Auto) 0.7 Basophils # (Auto) 0.1 CBC Comment DIFF FINAL Differential Comment Prothrombin Time 10.2 Prothromb Time International Ratio 0.9 Activated Partial Thromboplast Time 26.1 Bedside Sodium 139 Bedside Potassium 4.1 Bedside Chloride 104 Bedside Blood Urea Nitrogen 38 Bedside Creatinine 1.9 Bedside Glucose 330 Calcium Level 8.5 Magnesium Level 2.0 Total Creatine Kinase 121 Creatine Kinase MB 2.8 Troponin I 0.07 B-Type Natriuretic Peptide 225 Result Diagram: 12/20/162224 Imaging Last Impressions Chest X-Ray 12/20/162222 Signed Impressions: Service Date/Time: November 22:30 - CONCLUSION: Cardiomegaly. Storm Fernandez MD Assessment and Plan Assessment and Plan 1. STEMI: Status post cardiac catheterization with stent placement. Management per cardiology. Continue aspirin, statin, beta jessica, Brilinta. 2. Hypertension: Continue antihypertensive medications. Monitor blood pressure. 3. Questionable history of CHF: Echocardiogram ordered. Previous echocardiogram in July 2016 showed normal systolic function with ejection fraction of 55-60%. 4. COPD: Continue supplemental oxygen. Bronchodilators. Check respiratory therapy home oxygen walk test as patient may require oxygen at home. 5. Diabetes mellitus: Monitor Accu-Cheks and cover with sliding scale insulin. 6. DVT prophylaxis: Patient is on Brilinta. Problem Qualifiers (1) STEMI (ST elevation myocardial infarction): Qualified Codes: I21.3 - ST elevation (STEMI) myocardial infarction of unspecified site Duy Proctor MD Dec 21, 2016 09:08
[2016-12-21] MEDS ORDERED: CITRIC ACID IRRIGATION SCH (09:15)
[2016-12-21] MEDS ORDERED: MAGNESIUM CARBONATE IRRIGATION SCH (09:15)
[2016-12-21] MEDS ORDERED: [UNRECOGNIZED DRUG - OTHER] IRRIGATION SCH (09:15)
[2016-12-21] MEDS: GABAPENTIN 300 MG CAP PO SCH (10:15)
[2016-12-21] MEDS: TIOTROPIUM BROMIDE 18 MCG INH INH SCH (10:30)
[2016-12-21] MEDS: INSULIN ASPART SUPPLEMENTAL SCALE SQ SCH ×3 (11:00→21:00)
--- NOTE | 2016-12-21 11:28 | MB ---
cc: YISEL HAMPTON DATE OF CONSULTATION: 12/20/2016 REASON FOR CONSULTATION/INDICATION ST-elevation myocardial infarction. HISTORY OF PRESENT ILLNESS A 86-year-old gentleman presented to the emergency department acute onset of substernal chest pain as a prior history of known heart disease with prior percutaneous intervention heart attack 10 years ago his diabetes, hyperlipidemia, hypertension, congestive heart failure, atrial fibrillation. He presented with 30 minutes of substernal chest pain. He came in the emergency department's noted to have anterior ST elevation times three, sublingual nitroglycerin with no improvement. He follows at the [facility], he does not recall who his business management specialist is. ST-elevation myocardial infarction protocol was initiated. PAST MEDICAL HISTORY Arthritis Atrial fibrillation not on anticoagulation Prostate cancer Coronary disease prior percutaneous intervention Myocardial infarction Bilateral hearing aids Diabetes SOCIAL HISTORY: Denies alcohol, tobacco or drug use. ALLERGIES PENICILLIN WARFARIN MEDICATIONS: 1. Furosemide 2. Azithromycin 3. prednisone 4. reported medications; 5. Spiriva 6. Sudafed 7. Omeprazole 8. Losartan 9. insulin 10. Gabapentin 11. Carvedilol 12. ProAir REVIEW OF SYSTEMS 12-point this was performed unless otherwise noted is present illness. PHYSICAL EXAMINATION VITAL SIGNS: Temperature 98, pulse 80, blood pressure 182/96 mmHg IN GENERAL: Alert and oriented x3, moderate distress. HEAD, EYES, EARS, NOSE, AND THROAT: Exam shows pupils reactive to light, his extraocular muscles are intact. NECK: No jugular venous distention. No thyromegaly or lymphadenopathy. No carotid bruits. LUNGS: The lungs are clear to auscultation bilaterally. CARDIOVASCULAR SYSTEM: Regular rate and rhythm without murmurs, rubs or gallops. ABDOMEN: Soft, nontender, nondistended. Good bowel sounds. No hepatosplenomegaly. EXTREMITIES: No clubbing, cyanosis or edema. Good peripheral pulses. NEUROLOGIC: Cranial nerves: Intact. Motor sensory grossly intact. LABORATORY DATA WBC 9.5, hemoglobin 0.1, platelet count 222, INR 0.9, sodium 139, potassium 4.1, BUN 38, creatinine is 1.9. Electrocardiogram sinus rhythm, ST-elevation the right bundle-branch block with primary ST changes ST elevation anteriorly. ASSESSMENT 1. ST-elevation myocardial infarction. 2. Diabetes 3. Hypertension 4. hyperlipidemia. PLAN Given the patient's suggestive symptoms prior history of known coronary disease and electrocardiographic changes consistent with ST-elevation RI. He will be brought emergently to the cardiac catheterization lab. We will gently hydrate given his creatinine will have to evaluate his ejection fraction is clinically stable appears to not be in any congestive heart failure. MD JOCE Hyatt/francisco javier /11:00 PM /11:17 AM
--- NOTE | 2016-12-21 12:46 | MA ---
cc: YISEL HAMPTON DATE: 12/21/[address]-elevation PA. Prelytic thrombectomy for the left anterior descending coronary artery. PROCEDURE PERFORMED 1. Fluoroscopy interpretation 2. Coronary angiography 3. Percutaneous intervention with bare metal stents to the mid and distal left anterior descending stent to the mid left anterior descending coronary artery. METHOD: Risks, benefits and alternatives discussed with the patient. The patient understood and consented with the procedure. The patient was brought to the catheterization lab and the patient was placed on the catheterization table. Right wrist was prepped and draped in sterile fashion. Right wrist was anesthetized 2% lidocaine. Right radial artery is cannulated 6-Singaporean 7 cm sheath was placed out difficulty. A 200 mcg intraprocedure injection of nitroglycerin was administered. A level above the procedure, poor performed point we a lytic thrombectomy of left anterior descending coronary artery. PROCEDURE PERFORMED Put intracoronary administration of nitroglycerin and adenosine His down below coronary angiography; left coronary circulation was selectively engaged with a 6-Singaporean XB LAD 4.0 guide catheter. Right coronary circulation selectively engages 6-Singaporean JR-4 SR JR-5 catheter. Angiography findings are as follows; 1. Left main coronary is large caliber size vessel with minor irregularities. 2. Left anterior descending coronary also large caliber size vessel proximally. There is a stent present in the proximal segment extending out the cyst to the bifurcation of a diagonal branch. The remainder of the left anterior descending is occluded and there is heavy thrombotic burden. 3. Left circumflex is a dominant vessel giving rise a left-sided posterior descending branch. There is a ramus intermedius branch also present. Ramus intermedius branch is moderate caliber size with 30% stenosis. 4. Left circumflex has a 40% stenosis in the mid segment left-sided posterior descending branch has minor luminal irregularities. There is obtuse marginal branch with minor irregularities. 5. Right coronary is nondominant vessel minor irregularities. PERCUTANEOUS INTERVENTION: 6. Left coronary circulation selectively engaged 6-Singaporean XB LAD 4.0 guide catheter 0.014 inches 180 cm Terumo wire was navigated down to the distal left anterior descending coronary with some difficulty. A 4-Singaporean spiral flex AngioJet catheter was prepped, rheolytic Thrombectomy was performed on two sequential passes through the left anterior descending coronary artery. Repeat angiography still showed no flow distally. A 2.5 x 20 mm RXC4 balloon was advanced down the mid left anterior descending coronary deployed on two sequential inflations to 8 atmospheres. Repeat angiography still showed no distal flow present. 18 micrograms of intracoronary adenosine was administered. At this point we needed to confirm with 100% certainty that the wire was in the distal left anterior descending coronary before proceeding any more aggressively. A DOC wire was connected to the 180 cm wire extending the wire for a 1.25 x 6 mm over the wire balloon. The over the wire balloon was then advanced carefully down to the distal left anterior descending coronary and the wire removed. Selective angiography through the over the wire catheter was performed confirming intraluminal placement and visualizing the distal apical left anterior descending coronary artery. A 300 cm Terumo run-through wire was then navigated down to the distal left anterior descending coronary artery, and the 1.25 mm balloon removed. A 2.5 x 30 mm RX4 balloon was then deployed on three sequential inflations to the entire mid to distal left anterior descending coronary artery. Repeat angiography now showed faith of LALA III flow but there was a thrombus in the mid to distal segment still residual stenosis. A 2.5 x 26 mm RX integrity bare metal stent was advanced down to the mid - distal left anterior descending coronary artery and deployed. Bare metal stent was chosen given his prior history of apparent bleeding with antiplatelet or anticoagulation. A second 2.5 x 26 mm RX integrity bare metal stents advanced down to the mid left anterior descending coronary with minimal stent overlap and deployed in the post overlap portion and postdilated to 16 atmospheres intracoronary adenosine and nitroglycerin was administered. Repeat angiography can showed faith of LALA III flow. No residual stenosis wire was removed. Guide catheter removed. Hemo band applied. Angiomax was administered throughout the entire procedure maintain appropriate coagulation. CONCLUSION 1. Acute thrombotic occlusion of the mid and distal left anterior descending coronary artery. 2. Successful rheolytic thrombectomy of the left anterior descending coronary artery. 3. Successful percutaneous intervention with bare metal stents to the mid and distal left anterior descending coronary artery. PLAN The patient monitored closely for any postprocedure complications. He does have a baseline right bundle-branch block. We will get a 2-D echocardiogram to evaluate ejection fraction and gently hydrate for now given his renal insufficiency. We initiated on aspirin antiplatelet therapy. Monitored closely for bleeding. We will also make sure is on statin and beta blockers. MD Nadya Hyatt /12:09 AM /12:20 PM [facility] CENTERAmparo
[2016-12-21 17:54] LABS: BICARBONATE 27.3 MEQ/L (21.0-32.0); POTASSIUM 4.5 MEQ/L (3.5-5.1)
--- NOTE | 2016-12-21 20:33 | EKG ---
Date Performed: 12/21/2016 Time Performed: 05:56:18 PTAGE: 86 years EKG: Atrial fibrillation Left axis deviation RBBB with left anterior fascicular block Possible e xtensive infarct - age undetermined Abnormal ECG PREVIOUS TRACING : 12/20/2016 22.17 Compared to the previous tracing, ST elevations anteriorly no longer noted DOCTOR: Ralph Alamo Interpretating Date/Time 12/21/2016 20:32:36
[2016-12-21] MEDS ORDERED: ALPRAZolam 0.25 MG TAB PO ONE (21:15)
[2016-12-21] MEDS: GABAPENTIN 400 MG CAP PO SCH (22:16)
[2016-12-21] MEDS: ATORVASTATIN 40 MG TAB PO SCH (22:16)
[2016-12-21] MEDS: INSULIN HUMAN NPH 1,000 UNITS/10 ML VIAL SQ SCH (22:24)
[2016-12-21] MEDS: guaiFENesin SOLUTION 200 MG/10 ML CUP PO PRN (22:27)
[2016-12-21] MEDS ORDERED: IOHEXOL 350 MG/ML 50 ML BTL (for Cath Lab) OTHER ONE (23:03)
[2016-12-21] MEDS ORDERED: IOHEXOL 350 MG/ML 100 ML BTL (for Cath Lab) OTHER ONE (23:03)
[2016-12-22] VITALS (26 sets, daily range): BP systolic 129–144; BP diastolic 64–84; PULSE 54–92; RESP 16–18; TEMP 97.4–98.4; O2SAT 93–99
--- NOTE | 2016-12-22 00:46 | EKG ---
Date Performed: 12/20/2016 Time Performed: 22:17:50 PTAGE: 86 years EKG: ATRIAL FIBRILLATION RIGHT BUNDLE BRANCH BLOCK ST ELEVATION, CONSIDER ANTERIOR INJURY ACU TE GA PREVIOUS TRACING : 08/06/2016 13.14 Compared to the previous tracing, anterior ST elevati ons are new DOCTOR: Ralph Alamo Interpretating Date/Time 12/22/2016 00:46:27
[2016-12-22 04:09] LABS: AUTOMATED NEUTROPHIL # 8.9 TH/MM3 (1.8-7.7); BASOPHIL % 0.2 % (0.0-2.0); EOSINOPHIL # 0.4 TH/MM3 (0-0.4); HEMO FLAGS DIFF FINAL; LYMPH % 5.5 % (9.0-44.0); LYMPHOCYTE # 0.6 TH/MM3 (1.0-4.8); MEAN CELL VOLUME 86.5 FL (80.0-100.0); MEAN CORPUSCULAR HEMOGLOBIN 27.5 PG (27.0-34.0); MEAN CORPUSCULAR HGB CONC 31.8 % (32.0-36.0); MONO % 10.9 % (0.0-8.0); NEUT % 79.4 % (16.0-70.0); PLATELET COUNT 152 TH/MM3 (150-450); RED BLOOD COUNT 3.47 MIL/MM3 (4.50-5.90); RED CELL DISTRIBUTION WIDTH 15.1 % (11.6-17.2); WHITE BLOOD COUNT 11.2 TH/MM3 (4.0-11.0)
[2016-12-22 05:02] LABS: BICARBONATE 26.9 MEQ/L (21.0-32.0); HDL CHOLESTEROL 53.3 MG/DL (40.0-60.0); POTASSIUM 4.1 MEQ/L (3.5-5.1)
[2016-12-22 05:37] LABS: CKMB 38.2 NG/ML (0.5-3.6)
[2016-12-22] MEDS: INSULIN ASPART SUPPLEMENTAL SCALE SQ SCH ×4 (06:23→21:00)
[2016-12-22] MEDS: PANTOPRAZOLE SOD 20 MG DELAYED RELEASE TAB PO SCH (06:34)
[2016-12-22] MEDS: ISOSORBIDE MONONITRATE 60 MG TAB PO SCH (06:34)
[2016-12-22] MEDS: GABAPENTIN 300 MG CAP PO SCH (06:35)
[2016-12-22] MEDS: ASPIRIN 81 MG CHEW TAB PO SCH (07:34)
[2016-12-22] MEDS: TICAGRELOR 90 MG TAB PO SCH ×2 (07:34→21:01)
[2016-12-22] MEDS: LOSARTAN 25 MG TAB PO SCH (07:34)
[2016-12-22] MEDS: FUROSEMIDE 20 MG TAB PO SCH (07:34)
[2016-12-22] MEDS: TIOTROPIUM BROMIDE 18 MCG INH INH SCH (07:34)
[2016-12-22] MEDS: CARVEDILOL 3.125 MG TAB PO SCH ×2 (07:35→21:00)
[2016-12-22] MEDS: guaiFENesin SOLUTION 200 MG/10 ML CUP PO PRN (07:38)
--- NOTE | 2016-12-22 09:15 | EKG ---
Date Performed: 12/22/2016 Time Performed: 05:31:28 PTAGE: 86 years EKG: Atrial fibrillation Left axis deviation RBBB with left anterior fascicular block Anterior i nfarct - age undetermined Possible inferior infarct - age undetermined Lateral ST-T changes may be du e to myocardial ischemia Generalized low QRS voltages Abnormal ECG PREVIOUS TRACING : 12/21/2016 05.56 DOCTOR: Marin Frazier Interpretating Date/Time 12/22/2016 09:14:06
--- NOTE | 2016-12-22 11:03 | HHI.PR ---
Subjective Remarks Follow-up STEMI, hypertension, COPD. Patient continues to report significant shortness of breath. He was unable to ambulate with PT and respiratory therapy to the home oxygen walk test. He denies chest pain. Objective Vitals Vital Signs Date Time Temp Pulse Resp B/P (MAP) Pulse Ox O2 Delivery O2 Flow Rate FiO2 12/22/16 10:00 69 12/22/16 09:00 69 12/22/16 08:00 71 12/22/16 07:41 98.4 92 16 139/84 (102) 97 12/22/16 07:21 92 12/22/16 06:00 80 12/22/16 05:00 54 12/22/16 04:00 85 12/22/16 03:00 97.9 84 16 131/76 (94) 99 12/22/16 03:00 81 12/22/16 02:00 78 12/22/16 01:00 72 12/22/16 00:00 86 12/21/16 23:00 98.0 88 20 143/76 (98) 12/21/16 23:00 67 12/21/16 22:00 76 12/21/16 21:00 74 12/21/16 20:00 70 12/21/16 19:55 98 Nasal Cannula 3.00 12/21/16 19:00 98.6 80 22 123/82 (96) 12/21/16 19:00 82 12/21/16 18:00 98 12/21/16 17:41 71 12/21/16 16:09 67 12/21/16 15:52 77 12/21/16 15:00 97.6 82 18 132/80 (97) 97 12/21/16 14:00 77 12/21/16 13:05 78 12/21/16 12:32 80 12/21/16 11:33 79 12/21/16 11:08 98 Nasal Cannula 3.00 12/21/16 11:00 75 18 128/63 (84) 98 I/O 12/21/16 12/21/16 12/21/16 12/22/16 12/22/16 12/22/16 07:00 15:00 23:00 07:00 15:00 23:00 Intake Total 1630 ml 800 ml 480 ml Output Total 600 ml 750 ml 600 ml Balance 1030 ml 50 ml -120 ml Intake Oral 480 ml 800 ml 480 ml IV Total 1150 ml Output Urine Total 600 ml 750 ml 600 ml # Voids 0 # Bowel Movements 1 Result Diagram: 12/22/16 0402 12/22/16 0402 Imaging Last Impressions Chest X-Ray 12/20/163 Signed Impressions: Service Date/Time: November 22:30 - CONCLUSION: Cardiomegaly. Storm Fernandez MD Objective Remarks General: Obese elderly male in no acute distress. Heart: Regular rate and rhythm. No murmur. Lungs: Mild scattered wheeze. Breathing is nonlabored. Abdomen: Soft, nontender, nondistended. Extremities: No lower extremity edema. No calf tenderness. Psych: Alert and oriented. Procedures 12/20/16 cardiac catheterization Urinary Catheter: Yes Assessment to: Continue Cortez insert reason: Measure Accurate Output Vascular Central Line Catheter: No A/P Problem List: (1) STEMI (ST elevation myocardial infarction) ICD Code: I21.3 - ST elevation (STEMI) myocardial infarction of unspecified site Status: Acute (2) DM (diabetes mellitus) ICD Code: E11.9 - DM (diabetes mellitus) Status: Acute (3) Chronic kidney disease, stage III (moderate) ICD Code: N18.3 - Chronic kidney disease, stage III (moderate) Status: Acute (4) Chronic obstructive pulmonary disease ICD Code: J44.9 - Chronic obstructive pulmonary disease Status: Acute (5) Atrial fibrillation ICD Code: I48.91 - Atrial fibrillation Status: Acute (6) Hypertension ICD Code: I10 - Hypertension Status: Acute (7) Hyperlipidemia ICD Code: E78.5 - Hyperlipidemia Status: Acute Assessment and Plan 1. STEMI: Status post cardiac catheterization with stent placement. Management per cardiology. Continue aspirin, statin, beta jessica, Brilinta. 2. Hypertension: Continue antihypertensive medications. Monitor blood pressure. 3. Questionable history of CHF: Echocardiogram ordered. Previous echocardiogram in July 2016 showed normal systolic function with ejection fraction of 55-60%. 4. COPD: Continue supplemental oxygen. Bronchodilators. Consult pulmonology. Patient may require home oxygen. 5. Diabetes mellitus: Monitor Accu-Cheks and cover with sliding scale insulin. 6. DVT prophylaxis: Patient is on Brilinta. Problem Qualifiers (1) STEMI (ST elevation myocardial infarction): Qualified Codes: I21.3 - ST elevation (STEMI) myocardial infarction of unspecified site Duy Proctor MD Dec 22, 2016 11:03
[2016-12-22] MEDS: predniSONE 20 MG TAB PO SCH (12:05)
--- NOTE | 2016-12-22 13:21 | HHI.PR ---
Subjective Remarks No chest pain Constipation Objective Vital Signs Date Time Temp Pulse Resp B/P (MAP) Pulse Ox O2 Delivery O2 Flow Rate FiO2 12/22/16 12:56 89 12/22/16 11:00 75 12/22/16 11:00 98.2 83 18 144/64 (90) 98 12/22/16 10:00 69 12/22/16 09:00 69 12/22/16 08:00 71 12/22/16 07:41 98.4 92 16 139/84 (102) 97 12/22/16 07:21 92 12/22/16 06:00 80 12/22/16 05:00 54 12/22/16 04:00 85 12/22/16 03:00 97.9 84 16 131/76 (94) 99 12/22/16 03:00 81 12/22/16 02:00 78 12/22/16 01:00 72 12/22/16 00:00 86 12/21/16 23:00 98.0 88 20 143/76 (98) 12/21/16 23:00 67 12/21/16 22:00 76 12/21/16 21:00 74 12/21/16 20:00 70 12/21/16 19:55 98 Nasal Cannula 3.00 12/21/16 19:00 98.6 80 22 123/82 (96) 12/21/16 19:00 82 12/21/16 18:00 98 12/21/16 17:41 71 12/21/16 16:09 67 12/21/16 15:52 77 12/21/16 15:00 97.6 82 18 132/80 (97) 97 12/21/16 14:00 77 I/O 12/21/16 12/21/16 12/21/16 12/22/16 12/22/16 12/22/16 06:59 14:59 22:59 06:59 14:59 22:59 Intake Total 1630 ml 800 ml 480 ml Output Total 600 ml 750 ml 600 ml Balance 1030 ml 50 ml -120 ml Intake Oral 480 ml 800 ml 480 ml IV Total 1150 ml Output Urine Total 600 ml 750 ml 600 ml # Voids 0 # Bowel Movements 1 Result Diagram: 12/22/1640112/22/16401 Imaging Alert, fully oriented Lungs: ventilated Heart: S1, S2 regular, no gallop Abdomen: soft, no mass, obese Ext: edema +1 Last Impressions Chest X-Ray 12/20/16 [id number] Signed Impressions: Service Date/Time: November 22:30 - CONCLUSION: Cardiomegaly. Storm Fernandez MD Current Medications Medications (Trade) Dose Ordered Sig/Marcos Route Start Time Stop Time Status Last Admin (NS Flush) 2 ml UNSCH PRN IVF 12/20/16 22:30 (Tylenol) 325 mg Q4H PRN PO 12/21/16 00:15 (Percocet 5-325 Mg) 1 tab Q4H PRN PO 12/21/16 00:15 (Percocet 10-325 Mg) 1 tab Q4H PRN PO 12/21/16 00:15 12/21/16 04:50 (Morphine Inj) 2 mg Q30M PRN IV PUSH 12/21/16 00:15 12/21/16 04:52 (Restoril) 15 mg HS PRN PO 12/21/16 00:15 (Zofran Inj) 4 mg Q6H PRN IVP 12/21/16 00:15 (Aspirin Chew) 81 mg DAILY PO 12/21/16 09:00 12/22/16 07:34 (Brilinta) 90 mg BID PO 12/21/16 09:00 12/22/16 07:34 (Lipitor) 40 mg HS PO 12/21/16 21:00 12/21/16 22:16 (Coreg) 3.125 mg Q12HR PO 12/21/16 09:00 12/22/16 07:35 (Apresoline Inj) 10 mg Q30M PRN IV PUSH 12/21/16 00:30 12/21/16 03:16 (Imdur) 60 mg DAILY@07 PO 12/21/16 00:30 12/22/16 06:34 (Duoneb Neb) 1 ampule Q4HR NEB PRN NEB 12/21/16 03:00 12/21/16 03:16 (D50w (Vial) Inj) 50 ml UNSCH PRN IV 12/21/16 07:45 (Glucagon Inj) 1 mg UNSCH PRN OTHER 12/21/16 07:45 (NovoLOG SUPPLEMENTAL SCALE) 1 ACHS SLIDING SCALE SQ 12/21/16 11:00 12/22/16 12:03 (Lasix) 20 mg DAILY PO 12/22/16 09:00 12/22/16 07:34 (Neurontin) 300 mg DAILY@0600 PO 12/21/16 10:15 12/22/16 06:35 (Neurontin) 400 mg HS PO 12/21/16 21:00 12/21/16 22:16 (NovoLIN N INJ) 22 units HS SQ 12/21/16 21:00 12/21/16 22:24 (Cozaar) 12.5 mg DAILY PO 12/22/16 09:00 12/22/16 07:34 (Spiriva Inh) 18 mcg DAILY INH 12/21/16 10:30 12/22/16 07:34 (Protonix) 20 mg AC BREAKFAST PO 12/22/16 07:00 12/22/16 06:34 (Robitussin Liq) 200 mg Q4H PRN PO 12/21/16 21:15 12/22/16 07:38 (Deltasone) 20 mg DAILY PO 12/22/16 11:15 12/22/16 12:05 Assessment and Plan Problem List: (1) Atrial fibrillation ICD Codes: I48.91 - Atrial fibrillation Status: Acute Plan: In a regular rhythm No clear P wave in telemetry HR control Continue with current management (2) STEMI (ST elevation myocardial infarction) ICD Codes: I21.3 - ST elevation (STEMI) myocardial infarction of unspecified site Status: Acute Plan: SP PTCA plus stent. Doing well No chest pain Doing better Some SOB Pulmonary consulted Can be DH when ok with managing team I will fiollow him during hospitalization. Problem Qualifiers (1) STEMI (ST elevation myocardial infarction): Qualified Codes: I21.3 - ST elevation (STEMI) myocardial infarction of unspecified site Tiny Carr MD Dec 22, 2016 13:21
[2016-12-22] MEDS ORDERED: ARTIFICIAL TEARS OPTH SOLN 15 ML BTL EACH EYE PRN (17:30)
[2016-12-22] MEDS ORDERED: SENNOSIDES 8.6 MG TAB PO PRN (17:30)
[2016-12-22] MEDS ORDERED: LACTULOSE SYRUP 20 GM/30 ML CUP PO PRN (17:30)
[2016-12-22] MEDS ORDERED: BISACODYL 10 MG SUPP RECTAL PRN (17:30)
[2016-12-22] MEDS: MAGNESIUM HYDROXIDE SUSP 30 ML CUP PO PRN (17:56)
[2016-12-22] MEDS: methylPREDNISolone SOD SUCC 40 MG/1 ML VIAL IV SCH (18:46)
--- NOTE | 2016-12-22 18:46 | ECHRPT ---
Indication: CHEST PAIN, [place] CONCLUSIONS technically limited study Normal left ventricular size. Mild concentric left ventricular hypertrophy. The left ventricular systolic function is hyperdynamic with an estimated ejection fraction in the ra nge of 65- 70%. This study was not technically sufficient to allow for evaluation of left ventricular diastolic func tion. The right ventricle is moderately dilated. The left atrial size is moderately dilated. The right atrial size is icmlgfzy-ga-eexasokn dilated. No atrial level shunt is demonstrated by color flow Doppler interrogation. mild mitral valve regurgitation. No aortic valve regurgitation. No aortic valve stenosis. Annular dilatation of the tricuspid valve. There is moderate to severe tricuspid valve regurgitation. There is estimated moderate pulmonary hypertension present (range 50-60 mmHg). Trivial pulmonary valve regurgitation. The inferior vena cava (IVC) is normal in size. There is greater than 50% respiratory change in dimension of the inferior vena cava (normal). BP: 182 / 96 HR: 94 Rhythm: Atrial fibrillation MEASUREMENTS (Male / Female) Normal Values Technical Quality:Fair 2D ECHO LV Diastolic Diameter PLAX 4.4 cm 4.2 - 5.9 / 3.9 - 5.3 cm LV Systolic Diameter PLAX 2.9 cm IVS Diastolic Thickness 1.5 cm 0.6 - 1.0 / 0.6 - 0.9 cm LVPW Diastolic Thickness 1.5 cm 0.6 - 1.0 / 0.6 - 0.9 cm LV Relative Wall Thickness 0.7 LVOT Diameter 2.5 cm Aortic Root Diameter 4.0 cm LA Systolic Diameter LX 4.2 cm 3.0 - 4.0 / 2.7 - 3.8 cm LA Volume Index 47.1 cm/m 16 - 28 cm/m M-MODE AV Cusp Separation MM 2.3 cm DOPPLER AV Peak Velocity 106.3 cm/s AV Peak Gradient 4.5 mmHg AV Mean Gradient 2.3 mmHg AV Velocity Time Integral 15.2 cm LVOT Peak Velocity 50.6 cm/s LVOT Peak Gradient 1.0 mmHg LVOT Velocity Time Integral 8.7 cm LVOT Cardiac Index 1717.0 cm/minm AV Area Cont Eq vti 2.8 cm AV Area Cont Eq pk 2.3 cm Mitral E Point Velocity 73.6 cm/s LV E' Lateral Velocity 10.7 cm/s Mitral E to LV E' Lateral Ratio 6.9 LV E' Septal Velocity 7.6 cm/s Mitral E to LV E' Septal Ratio 9.7 TV Peak Velocity 267.0 cm/s TR Peak Velocity 327.0 cm/s TR Peak Gradient 42.8 mmHg PV Peak Velocity 45.5 cm/s PV Peak Gradient 0.8 mmHg FINDINGS LEFT VENTRICLE Normal left ventricular size. Moderate concentric left ventricular hypertrophy. The left ventricular systolic function is hyperdynamic with an estimated ejection fraction in the ra nge of 65- 70%. This study was not technically sufficient to allow for evaluation of left ventricular diastolic func tion. RIGHT VENTRICLE The right ventricle is moderately dilated. LEFT ATRIUM The left atrial size is moderately dilated. RIGHT ATRIUM The right atrial size is ekkmtdgr-af-jopedyjj dilated. ATRIAL SEPTUM No atrial level shunt is demonstrated by color flow Doppler interrogation. AORTA The aortic root and proximal ascending aorta are normal in size on limited imaging. MITRAL VALVE Structurally normal mitral valve. Reqvq-iy-gcya mitral valve regurgitation. AORTIC VALVE Trileaflet aortic valve. No aortic valve regurgitation. No aortic valve stenosis. TRICUSPID VALVE Structurally normal tricuspid valve. Annular dilatation of the tricuspid valve. There is moderate to severe tricuspid valve regurgitation. There is estimated moderate pulmonary hypertension present (range 50-60 mmHg). PULMONARY VALVE Trivial pulmonary valve regurgitation. VESSELS The inferior vena cava (IVC) is normal in size. There is greater than 50% respiratory change in dimension of the inferior vena cava (normal). PERICARDIUM No pericardial effusion. Lázaro Perdomo MD, FACC, [facility] (Electronically Signed) Final Date:22 December 2016 18:45
[2016-12-22] MEDS: RESP: ALBUTEROL 2.5 MG/IPRATROPIUM 0.5 MG NEB (SCH) NEB (19:45)
[2016-12-22] MEDS: ATORVASTATIN 40 MG TAB PO SCH (21:00)
[2016-12-22] MEDS: DOCUSATE SODIUM 50 MG/SENNA 8.6 MG TAB PO SCH (21:00)
[2016-12-22] MEDS: GABAPENTIN 400 MG CAP PO SCH (21:00)
[2016-12-22] MEDS: INSULIN HUMAN NPH 1,000 UNITS/10 ML VIAL SQ SCH (21:12)
[2016-12-23] VITALS (27 sets, daily range): BP systolic 124–156; BP diastolic 77–91; PULSE 65–102; RESP 16–18; TEMP 97.4–98.6; O2SAT 96–99
[2016-12-23] MEDS: methylPREDNISolone SOD SUCC 40 MG/1 ML VIAL IV SCH ×3 (02:07→21:36)
[2016-12-23] MEDS: GABAPENTIN 300 MG CAP PO SCH (06:24)
[2016-12-23] MEDS: ISOSORBIDE MONONITRATE 60 MG TAB PO SCH (06:24)
[2016-12-23] MEDS: PANTOPRAZOLE SOD 20 MG DELAYED RELEASE TAB PO SCH (06:25)
[2016-12-23] MEDS: INSULIN ASPART SUPPLEMENTAL SCALE SQ SCH ×2 (06:32→11:00)
[2016-12-23] MEDS: RESP: ALBUTEROL 2.5 MG/IPRATROPIUM 0.5 MG NEB (SCH) NEB ×4 (07:41→21:15)
[2016-12-23 08:08] LABS: AUTOMATED NEUTROPHIL # 11.7 TH/MM3 (1.8-7.7); BASOPHIL % 0.2 % (0.0-2.0); EOSINOPHIL % 0.2 % (0.0-4.0); HEMATOCRIT 31.9 % (39.0-51.0); HEMO FLAGS DIFF FINAL; LYMPH % 2.8 % (9.0-44.0); LYMPHOCYTE # 0.3 TH/MM3 (1.0-4.8); MEAN CELL VOLUME 86.2 FL (80.0-100.0); MEAN CORPUSCULAR HEMOGLOBIN 27.8 PG (27.0-34.0); MEAN CORPUSCULAR HGB CONC 32.3 % (32.0-36.0); MONO % 2.2 % (0.0-8.0); NEUT % 94.6 % (16.0-70.0); PLATELET COUNT 154 TH/MM3 (150-450); RED BLOOD COUNT 3.71 MIL/MM3 (4.50-5.90); WHITE BLOOD COUNT 12.3 TH/MM3 (4.0-11.0)
[2016-12-23 08:42] LABS: BICARBONATE 24.2 MEQ/L (21.0-32.0); POTASSIUM 4.8 MEQ/L (3.5-5.1)
[2016-12-23] MEDS: LOSARTAN 25 MG TAB PO SCH (09:22)
[2016-12-23] MEDS: DOCUSATE SODIUM 50 MG/SENNA 8.6 MG TAB PO SCH ×2 (09:23→21:36)
[2016-12-23] MEDS: CARVEDILOL 3.125 MG TAB PO SCH ×2 (09:23→21:36)
[2016-12-23] MEDS: predniSONE 20 MG TAB PO SCH (09:23)
[2016-12-23] MEDS: ASPIRIN 81 MG CHEW TAB PO SCH (09:23)
[2016-12-23] MEDS: FUROSEMIDE 20 MG TAB PO SCH (09:23)
[2016-12-23] MEDS: TIOTROPIUM BROMIDE 18 MCG INH INH SCH (09:24)
[2016-12-23] MEDS: TICAGRELOR 90 MG TAB PO SCH ×2 (09:25→21:36)
[2016-12-23] MEDS: MAGNESIUM HYDROXIDE SUSP 30 ML CUP PO PRN (09:31)
--- NOTE | 2016-12-23 10:13 | HHI.PR ---
Subjective Remarks Follow up dyspnea, STEMI. Patient feels that his breathing is better. Per nursing, patient was on room air overnight and O2 saturation stayed 91-97%. Patient denies chest pain. He feels weak, but is refusing SNF/rehab. Objective Vitals Vital Signs Date Time Temp Pulse Resp B/P (MAP) Pulse Ox O2 Delivery O2 Flow Rate FiO2 12/23/16 08:04 98 Nasal Cannula 2.00 12/23/16 06:27 98.2 71 18 156/91 (112) 96 12/23/16 06:00 70 12/23/16 05:00 65 12/23/16 04:00 68 12/23/16 03:00 79 12/23/16 02:00 79 12/23/16 01:00 80 12/23/16 00:00 68 12/22/16 23:56 98.1 85 18 132/75 (94) 95 12/22/16 23:00 70 12/22/16 22:00 68 12/22/16 21:00 68 12/22/16 20:00 97.9 80 18 129/74 (92) 98 12/22/16 20:00 66 12/22/16 19:45 99 Nasal Cannula 2.00 12/22/16 19:00 77 12/22/16 18:17 77 12/22/16 17:16 84 12/22/16 16:10 80 12/22/16 15:00 97.4 80 18 136/81 (99) 93 12/22/16 13:57 80 12/22/16 12:56 89 12/22/16 11:00 75 12/22/16 11:00 98.2 83 18 144/64 (90) 98 I/O 12/22/16 12/22/16 12/22/16 12/23/16 12/23/16 12/23/16 07:00 15:00 23:00 07:00 15:00 23:00 Intake Total 480 ml 500 ml 480 ml Output Total 600 ml 425 ml 600 ml Balance -120 ml 75 ml -120 ml Intake Oral 480 ml 500 ml 480 ml Output Urine Total 600 ml 425 ml 600 ml Stool Total 0 ml # Bowel Movements 0 Result Diagram: 12/23/16 0645 12/23/16 0645 Imaging Last Impressions Chest X-Ray 12/20/16 3272 Signed Impressions: Service Date/Time: November 22:30 - CONCLUSION: Cardiomegaly. Storm Fernandez MD Objective Remarks General: Obese elderly male in no acute distress. Sitting up in a chair. On room air. Heart: Regular rate and rhythm. No murmur. Lungs: Clear to auscultation. Breathing is nonlabored. Abdomen: Soft, nontender, nondistended. Extremities: No lower extremity edema. No calf tenderness. Psych: Alert and oriented. Procedures 12/20/16 cardiac catheterization Urinary Catheter: Yes Assessment to: Continue Cortez insert reason: Obstruction/Retention Vascular Central Line Catheter: No A/P Problem List: (1) STEMI (ST elevation myocardial infarction) ICD Code: I21.3 - ST elevation (STEMI) myocardial infarction of unspecified site Status: Acute (2) DM (diabetes mellitus) ICD Code: E11.9 - DM (diabetes mellitus) Status: Acute (3) Chronic kidney disease, stage III (moderate) ICD Code: N18.3 - Chronic kidney disease, stage III (moderate) Status: Acute (4) Chronic obstructive pulmonary disease ICD Code: J44.9 - Chronic obstructive pulmonary disease Status: Acute (5) Atrial fibrillation ICD Code: I48.91 - Atrial fibrillation Status: Acute (6) Hypertension ICD Code: I10 - Hypertension Status: Acute (7) Hyperlipidemia ICD Code: E78.5 - Hyperlipidemia Status: Acute Assessment and Plan 1. STEMI: Status post cardiac catheterization with stent placement. Management per cardiology. Continue aspirin, statin, beta jessica, Brilinta. 2. Hypertension: Continue antihypertensive medications. Monitor blood pressure. 3. Questionable history of CHF: Echocardiogram shows hyperdynamic left ventricular systolic function with EF 65-70%. 4. COPD: Continue supplemental oxygen. Bronchodilators. Appreciate pulmonology recommendations. Patient is now stable on room air. 5. Diabetes mellitus: Monitor Accu-Cheks and cover with sliding scale insulin. 6. DVT prophylaxis: Patient is on Brilinta. Discharge Planning Plan for discharge home with home health soon. Pending further PT recommendations and arrangements for home health by case management. Problem Qualifiers (1) STEMI (ST elevation myocardial infarction): Qualified Codes: I21.3 - ST elevation (STEMI) myocardial infarction of unspecified site Duy Proctor MD Dec 23, 2016 10:13
--- NOTE | 2016-12-23 10:14 | HHI.FF ---
Face to Face Verification Diagnosis: (1) Atrial fibrillation (2) Chronic obstructive pulmonary disease (3) Hypertension (4) Hyperlipidemia (5) STEMI (ST elevation myocardial infarction) Physical Therapy Order: Evaluate and Treat Home Health Nursing Order: Nursing assessment with vital signs Cortez catheter maintenance I have seen patient Dhruv Kinney on 12/23/16. My clinical findings support the need for the requested home health care services because: Patient has SOB I certify that my clinical findings support that this patient is homebound because: Hx COPD- exertion dyspnea/weakness Duy Proctor MD Dec 23, 2016 10:14
[2016-12-23] MEDS ORDERED: ISOS60TA PO (10:20)
[2016-12-23] MEDS: SODIUM CHLOR 0.9% 1000 ML INJ 1,000 ML IV SCH (10:30)
[2016-12-23] MEDS ORDERED: GLUCAGON 1 MG/ML VIAL OTHER PRN ×2 (13:00→18:00)
[2016-12-23] MEDS ORDERED: DEXTROSE 50% IN WATER 50 ML VIAL(D50) IV PUSH PRN ×2 (13:00→18:00)
[2016-12-23] MEDS: MEDIUM DOSE INSULIN NOVOLOG SUPPLEMENTAL SCALE SQ SCH ×2 (13:15→16:00)
--- NOTE | 2016-12-23 13:18 | HHI.PR ---
Subjective Remarks No chest pain. Doing better Objective Vital Signs Date Time Temp Pulse Resp B/P (MAP) Pulse Ox O2 Delivery O2 Flow Rate FiO2 12/23/16 13:00 93 12/23/16 12:00 84 12/23/16 11:00 88 12/23/16 10:00 86 12/23/16 09:00 102 12/23/16 08:04 98 Nasal Cannula 2.00 12/23/16 08:00 70 12/23/16 07:15 97.6 68 18 141/85 (103) 99 12/23/16 07:00 69 12/23/16 06:27 98.2 71 18 156/91 (112) 96 12/23/16 06:00 70 12/23/16 05:00 65 12/23/16 04:00 68 12/23/16 03:00 79 12/23/16 02:00 79 12/23/16 01:00 80 12/23/16 00:00 68 12/22/16 23:56 98.1 85 18 132/75 (94) 95 12/22/16 23:00 70 12/22/16 22:00 68 12/22/16 21:00 68 12/22/16 20:00 97.9 80 18 129/74 (92) 98 12/22/16 20:00 66 12/22/16 19:45 99 Nasal Cannula 2.00 12/22/16 19:00 77 12/22/16 18:17 77 12/22/16 17:16 84 12/22/16 16:10 80 12/22/16 15:00 97.4 80 18 136/81 (99) 93 12/22/16 13:57 80 I/O 12/22/16 12/22/16 12/22/16 12/23/16 12/23/16 12/23/16 07:00 15:00 23:00 07:00 15:00 23:00 Intake Total 480 ml 500 ml 480 ml Output Total 600 ml 425 ml 600 ml Balance -120 ml 75 ml -120 ml Intake Oral 480 ml 500 ml 480 ml Output Urine Total 600 ml 425 ml 600 ml Stool Total 0 ml # Bowel Movements 0 Result Diagram: 12/23/16 0645 12/23/16 0645 Imaging Alert, fully oriented, eating lunch Heart: S1, S2 regular, no gallop Abdomen: soft, no mass, obese Ext: no edema Last Impressions Chest X-Ray 12/20/16 2707 Signed Impressions: Service Date/Time: November 22:30 - CONCLUSION: Cardiomegaly. Storm Fernandez MD Current Medications Medications (Trade) Dose Ordered Sig/Marcos Route Start Time Stop Time Status Last Admin (NS Flush) 2 ml UNSCH PRN IVF 12/20/16 22:30 (Tylenol) 325 mg Q4H PRN PO 12/21/16 00:15 (Percocet 5-325 Mg) 1 tab Q4H PRN PO 12/21/16 00:15 (Percocet 10-325 Mg) 1 tab Q4H PRN PO 12/21/16 00:15 12/21/16 04:50 (Morphine Inj) 2 mg Q30M PRN IV PUSH 12/21/16 00:15 12/21/16 04:52 (Restoril) 15 mg HS PRN PO 12/21/16 00:15 (Zofran Inj) 4 mg Q6H PRN IVP 12/21/16 00:15 (Aspirin Chew) 81 mg DAILY PO 12/21/16 09:00 12/23/16 09:23 (Brilinta) 90 mg BID PO 12/21/16 09:00 12/23/16 09:25 (Lipitor) 40 mg HS PO 12/21/16 21:00 12/22/16 21:00 (Coreg) 3.125 mg Q12HR PO 12/21/16 09:00 12/23/16 09:23 (Apresoline Inj) 10 mg Q30M PRN IV PUSH 12/21/16 00:30 12/21/16 03:16 (Imdur) 60 mg DAILY@07 PO 12/21/16 00:30 12/23/16 06:24 (Duoneb Neb) 1 ampule Q4HR NEB PRN NEB 12/21/16 03:00 12/21/16 03:16 (Lasix) 20 mg DAILY PO 12/22/16 09:00 12/23/16 09:23 (Neurontin) 300 mg DAILY@0600 PO 12/21/16 10:15 12/23/16 06:24 (Neurontin) 400 mg HS PO 12/21/16 21:00 12/22/16 21:00 (NovoLIN N INJ) 22 units HS SQ 12/21/16 21:00 12/22/16 21:12 (Cozaar) 12.5 mg DAILY PO 12/22/16 09:00 12/23/16 09:22 (Spiriva Inh) 18 mcg DAILY INH 12/21/16 10:30 12/23/16 09:24 (Protonix) 20 mg AC BREAKFAST PO 12/22/16 07:00 12/23/16 06:25 (Robitussin Liq) 200 mg Q4H PRN PO 12/21/16 21:15 12/22/16 07:38 (Deltasone) 20 mg DAILY PO 12/22/16 11:15 12/23/16 09:23 (Ofe-Colace) 1 tab BID PO 12/22/16 21:00 12/23/16 09:23 (Milk Of Magnesia Liq) 30 ml Q12H PRN PO 12/22/16 17:30 12/23/16 09:31 (Senokot) 17.2 mg Q12H PRN PO 12/22/16 17:30 12/22/16 17:56 (Dulcolax Supp) 10 mg DAILY PRN RECTAL 12/22/16 17:30 (Lactulose Liq) 30 ml DAILY PRN PO 12/22/16 17:30 (Tears Naturale Opth Soln) 1 drop Q4H PRN EACH EYE 12/22/16 17:30 (SoluMEDROL INJ) 40 mg Q8H IV 12/22/16 18:00 12/23/16 09:23 (Duoneb Neb) 1 ampule QID NEB NEB 12/22/16 20:00 12/23/16 11:38 Sodium Chloride 1,000 ml @ 42 mls/hr [id number] IV 12/23/16 10:30 12/23/16 10:30 (D50w (Vial) Inj) 50 ml UNSCH PRN IV PUSH 12/23/16 13:00 (Glucagon Inj) 1 mg UNSCH PRN OTHER 12/23/16 13:00 (NovoLOG SUPPLEMENTAL SCALE) 1 ACHS SLIDING SCALE SQ 12/23/16 13:00 Assessment and Plan Problem List: (1) Atrial fibrillation ICD Codes: I48.91 - Atrial fibrillation Status: Acute Plan: HR control Doing better (2) STEMI (ST elevation myocardial infarction) ICD Codes: I21.3 - ST elevation (STEMI) myocardial infarction of unspecified site Status: Acute Plan: No chest pain SOB significantly improve Wants to go home instead of rehab Can be discharge whenever ok with managing team Problem Qualifiers (1) STEMI (ST elevation myocardial infarction): Qualified Codes: I21.3 - ST elevation (STEMI) myocardial infarction of unspecified site Tiny Carr MD Dec 23, 2016 13:18
[2016-12-23] MEDS ORDERED: LACTTAB8 PO (17:20)
--- NOTE | 2016-12-23 17:50 | MB ---
cc: ALINE TRAN DATE OF CONSULTATION: 12/22/2016. REASON FOR CONSULTATION: Hypoxia and COPD. HISTORY OF PRESENT ILLNESS: This is an 86-year-old white male who was initially admitted with history of atrial fibrillation, coronary artery disease and hypertension with diabetes who was complaining of chest pain. The patient had a STEMI alert called in and was placed on heparin and nitroglycerin and a cardiac catheterization was done with placement of a bare-metal stent. The patient was on oxygen following admission and over the past three days her oxygen was weaned down to room air and the saturations stayed at over 95%. She has been complaining of severe shortness of breath even with minimal activity and has had a history for urinary tract obstruction and has an indwelling Cortez catheter. There is no history of fever, chills, cough but he has had wheezing and orthopnea and has had some leg swelling. PAST MEDICAL HISTORY: The past history includes: 1. History of hypertension. 2. Diabetes. 3. Hyperlipidemia. 4. Congestive heart failure. 5. COPD. 6. 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 ALLERGIES: 1. PENICILLIN. 2. COUMADIN. MEDICATION LIST: 1. Lasix 20 milligrams daily. 2. Spiriva one capsule a day. 3. statin 10 milligrams at bedtime. 4. Omeprazole 20 milligrams twice a day. 5. Novolin insulin 22 units subcutaneous at bedtime. 6. Regular insulin 12 units subcutaneous three times a day. 7. Gabapentin 400 milligrams at bedtime and 300 milligrams in the a.m. 8. Coreg 6.25 milligrams twice a day. 9. ProAir inhaler two puffs PRN. FAMILY HISTORY: The family history is significant for chronic lung disease. HABITS: The patient does not smoke. Alcohol use is occasional in the past. REVIEW OF SYSTEMS: The patient is overweight. He has history of snoring and possible apnea. He has had leg swelling. He has joint pains. He has epigastric distress and nausea. He has urinary frequency and hematuria. He has chest pains and wheezing and cough. The other system review is negative. The patient is short of breath even with minimal activity. PHYSICAL EXAMINATION: GENERAL: This is an obese elderly white male who is alert and anxious. VITAL SIGNS: Blood pressure is 140/70, pulse is 75, respirations 20, temperature 97.6. HEAD, EYES, EARS, NOSE, THROAT: Head normocephalic. The pupils are reactive. Tongue is moist. Throat was clear. Nasal mucosa injected. NECK: The neck is supple. No bruits. Mild venous distention. Trachea is midline. CHEST: Distant breath sounds. A few wheezes scattered. No crackles. HEART: Heart sounds are regular. S1-S2. No murmur. No S3. ABDOMEN: Abdomen is soft and protuberant without masses. No organomegaly or tenderness. The bowel sounds are active. EXTREMITIES: Mild peripheral edema with diminished pulses. NEUROLOGIC: Reflexes are 1+. No gross motor deficits. Cranial nerves are grossly intact. RECTAL: Rectal exam is deferred. SKIN: No lesions. IMPRESSION: 1. COPD with emphysema and chronic bronchitis. 2. STEMI status post cardiac catheterization and stent placement. 3. Hypertension. 4. Diabetes mellitus. 5. Deconditioning. 6. Possible obstructive sleep apnea. PLAN: 1. The patient will be placed on 02 at two liters but will also get a blood gas study on room air. 2. Six (6) minute walk test to see if he qualifies for home oxygen. 3. Nocturnal 02 saturation study to see if we can document saturations below 88. 4. Will also place him on nebulized DuoNeb solution three times a day PRN. 5. Bedside pulmonary function test to be done in the a.m. 6. If he is coughing up any sputum, we will get a sputum culture and gram stain. 7. The patient did have a chest x-ray which shows no evidence of any active infiltrates. A CT scan of the chest might give us some information if he has any infiltrates. 8. I have discussed with him the possibility of doing a sleep study as an outpatient. 9. The patient was placed on Solu-Medrol 40 milligrams every 8 hours to help reduce bronchospasm. Thank you for this consultation. MD MYRIAM Lopez/ANTHONY /4:25 PM /5:35 PM
--- NOTE | 2016-12-23 17:55 | RADRPT ---
EXAM DATE/TIME: 12/23/2016 17:11 [place] COMPARISON: CHEST SINGLE AP, December 20, 2016, 22:30. INDICATIONS : Shortness of breath. RADIATION DOSE: 8.73 CTDIvol (mGy) MEDICAL HISTORY : Cardiovascular disease. Hypertension. Congestive heart failure. SURGICAL HISTORY : Appendectomy. ENCOUNTER: Initial ACUITY: 1 day PAIN SCALE: 0/10 LOCATION: chest TECHNIQUE: Volumetric scanning of the chest was performed. Using automated exposure control and adjustment of t he mA and/or kV according to patient size, radiation dose was kept as low as reasonably achievable to obtain optimal diagnostic quality images. DICOM format image data is available electronically for r eview and comparison. Follow-up recommendations for detected pulmonary nodules are based at a minimum on nodule size and pa tient risk factors according to Fleischner Society Guidelines. FINDINGS: LUNGS: There is no consolidation or pneumothorax. There is a 1 cm irregular noncalcified nodule in the right upper lobe is seen on coronal image #63. PLEURAE: There is a small right pleural effusion. MEDIASTINUM: The heart and great vessels demonstrate no acute abnormality. There is no mediastinal or hilar lymph adenopathy. There is mild cardiomegaly. Coronary artery calcifications are present. AXILLAE: Within normal limits. No lymphadenopathy. MUSCULOSKELETAL: Within normal limits for patient age. MISCELLANEOUS: The visualized upper abdominal organs demonstrate no acute abnormality. CONCLUSION: 1. 1 cm irregular nodule in the right upper lobe. Guidelines from the Fleischner Society for the foll ow-up and management of newly detected indeterminate 8 mm or greater average diameter pulmonary nodul es in persons >34 years old depend on nodule size (average of length and width) and underlying risk f actors (including smoking and other risk factors). Please consider the following recommendations aft er clinical assessment of risk factors. For nodules >8 mm: 2. In low risk patients, follow-up CT at approximately 3, 9, and 24 months. In high risk patients, dy namic contrast-enhanced CT, PET, and/or biopsy. 3. Small right pleural effusion. 4. Mild underlying emphysema. 5. Coronary artery calcifications. Wilfredo Shah MD on December 23, 2016 at 17:49 Board Certified Radiologist. This report was verified electronically.
[2016-12-23] MEDS ORDERED: PLEASE DISCONTINUE PREVIOUS SUPPLEMENTAL SCALE INSULIN ORDERS ONE (18:00)
[2016-12-23] MEDS: HIGH DOSE INSULIN NOVOLOG SUPPLEMENTAL SCALE SQ SCH ×2 (18:32→21:44)
[2016-12-23] MEDS: ATORVASTATIN 40 MG TAB PO SCH (21:35)
[2016-12-23] MEDS: GABAPENTIN 400 MG CAP PO SCH (21:36)
[2016-12-23] MEDS: INSULIN HUMAN NPH 1,000 UNITS/10 ML VIAL SQ SCH (21:43)
[2016-12-24] VITALS (25 sets, daily range): BP systolic 109–143; BP diastolic 66–87; PULSE 56–96; RESP 16–20; TEMP 97.3–98.2; O2SAT 96–100
[2016-12-24] MEDS: GABAPENTIN 300 MG CAP PO SCH (06:42)
[2016-12-24] MEDS: ISOSORBIDE MONONITRATE 60 MG TAB PO SCH (06:42)
[2016-12-24] MEDS: PANTOPRAZOLE SOD 20 MG DELAYED RELEASE TAB PO SCH (06:42)
[2016-12-24] MEDS: HIGH DOSE INSULIN NOVOLOG SUPPLEMENTAL SCALE SQ SCH ×4 (06:43→21:00)
[2016-12-24] MEDS: TIOTROPIUM BROMIDE 18 MCG INH INH SCH (09:14)
[2016-12-24] MEDS: methylPREDNISolone SOD SUCC 40 MG/1 ML VIAL IV SCH ×2 (09:14→22:04)
[2016-12-24] MEDS: ASPIRIN 81 MG CHEW TAB PO SCH (09:15)
[2016-12-24] MEDS: TICAGRELOR 90 MG TAB PO SCH ×2 (09:15→22:04)
[2016-12-24] MEDS: FUROSEMIDE 20 MG TAB PO SCH (09:15)
[2016-12-24] MEDS: SODIUM CHLORIDE 0.9% FLUSH 10 ML FLUSH IVF PRN (09:15)
[2016-12-24] MEDS: LOSARTAN 25 MG TAB PO SCH (09:15)
[2016-12-24] MEDS: CARVEDILOL 3.125 MG TAB PO SCH ×2 (09:15→22:04)
[2016-12-24] MEDS: DOCUSATE SODIUM 50 MG/SENNA 8.6 MG TAB PO SCH ×2 (09:15→22:03)
[2016-12-24] MEDS: RESP: ALBUTEROL 2.5 MG/IPRATROPIUM 0.5 MG NEB (SCH) NEB ×4 (09:24→20:10)
[2016-12-24 09:40] LABS: BICARBONATE 22.2 MEQ/L (21.0-32.0); POTASSIUM 4.9 MEQ/L (3.5-5.1)
--- NOTE | 2016-12-24 11:18 | HHI.PR ---
Subjective Remarks Follow up dyspnea, renal insufficiency. The patient states that he becomes very short of breath with any activity. Denies chest pain, nausea, vomiting. Objective Vitals Vital Signs Date Time Temp Pulse Resp B/P (MAP) Pulse Ox O2 Delivery O2 Flow Rate FiO2 12/24/16 09:28 99 21 12/24/16 07:15 97.3 60 18 116/73 (87) 98 12/24/16 04:00 66 12/24/16 04:00 97.4 66 20 131/73 (92) 97 12/24/16 03:00 63 12/24/16 00:00 62 12/24/16 00:00 98.2 62 18 116/76 (89) 96 12/23/16 21:18 97 12/23/16 20:00 97.4 69 18 126/82 (97) 98 12/23/16 19:00 69 12/23/16 18:00 96 12/23/16 17:00 74 12/23/16 16:00 66 12/23/16 15:06 97.5 75 16 124/77 (93) 96 12/23/16 15:00 75 12/23/16 14:00 76 12/23/16 13:00 93 12/23/16 12:00 84 12/23/16 11:30 98.6 82 16 133/79 (97) 97 I/O 12/23/16 12/23/16 12/23/16 12/24/16 12/24/16 12/24/16 06:59 14:59 22:59 06:59 14:59 22:59 Intake Total 480 ml 720 ml 480 ml Output Total 600 ml 650 ml 1050 ml Balance -120 ml 70 ml -570 ml Intake Oral 480 ml 720 ml 480 ml Output Urine Total 600 ml 650 ml 1050 ml Stool Total 0 ml # Bowel Movements 2 Result Diagram: 12/23/16 0645 12/24/16 0743 Imaging Last Impressions Chest CT 12/23/16 1631 Signed Impressions: Service Date/Time: Friday, December 23, 2016 17:11 - CONCLUSION: 1. 1 cm irregular nodule in the right upper lobe. Guidelines from the Fleischner Society for the follow-up and management of newly detected indeterminate 8 mm or greater average diameter pulmonary nodules in persons >34 years old depend on nodule size (average of length and width) and underlying risk factors (including smoking and other risk factors). Please consider the following recommendations after clinical assessment of risk factors. For nodules >8 mm: 2. In low risk patients, follow-up CT at approximately 3, 9, and 24 months. In high risk patients, dynamic contrast-enhanced CT, PET, and/or biopsy. 3. Small right pleural effusion. 4. Mild underlying emphysema. 5. Coronary artery calcifications. Wilfredo Shah MD Chest X-Ray 12/20/162 Signed Impressions: Service Date/Time: November 22:30 - CONCLUSION: Cardiomegaly. Storm Fernandez MD Objective Remarks General: Obese elderly male in no acute distress. Sitting up in a chair. On room air. Heart: Regular rate and rhythm. No murmur. Lungs: Clear to auscultation. Breathing is nonlabored. Abdomen: Soft, nontender, nondistended. Extremities: No lower extremity edema. No calf tenderness. Psych: Alert and oriented. Procedures 12/20/16 cardiac catheterization Urinary Catheter: No Vascular Central Line Catheter: No A/P Problem List: (1) STEMI (ST elevation myocardial infarction) ICD Code: I21.3 - ST elevation (STEMI) myocardial infarction of unspecified site Status: Acute (2) DM (diabetes mellitus) ICD Code: E11.9 - DM (diabetes mellitus) Status: Acute (3) Chronic kidney disease, stage III (moderate) ICD Code: N18.3 - Chronic kidney disease, stage III (moderate) Status: Acute (4) Chronic obstructive pulmonary disease ICD Code: J44.9 - Chronic obstructive pulmonary disease Status: Acute (5) Atrial fibrillation ICD Code: I48.91 - Atrial fibrillation Status: Acute (6) Hypertension ICD Code: I10 - Hypertension Status: Acute (7) Hyperlipidemia ICD Code: E78.5 - Hyperlipidemia Status: Acute Assessment and Plan 1. STEMI: Status post cardiac catheterization with stent placement. Management per cardiology. Continue aspirin, statin, beta jessica, Brilinta. 2. Hypertension: Continue antihypertensive medications. Monitor blood pressure. 3. Questionable history of CHF: Echocardiogram shows hyperdynamic left ventricular systolic function with EF 65-70%. Lasix on hold. We'll be cautious with IV fluids. 4. COPD: Continue supplemental oxygen. Bronchodilators. Appreciate pulmonology recommendations. Patient is now stable on room air. 5. Diabetes mellitus: Monitor Accu-Cheks and cover with sliding scale insulin. 6. Acute kidney injury superimposed on chronic kidney disease: Consult nephrology. Gentle IV fluid hydration. Lasix on hold. 7. DVT prophylaxis: Patient is on Brilinta. Discharge Planning Plan for discharge home soon. PT is recommending home with home health. [facility] management [facility]. Problem Qualifiers (1) STEMI (ST elevation myocardial infarction): Qualified Codes: I21.3 - ST elevation (STEMI) myocardial infarction of unspecified site Duy Proctor MD Dec 24, 2016 11:18
[2016-12-24] MEDS: SODIUM CHLOR 0.9% 1000 ML INJ 1,000 ML IV SCH (12:02)
[2016-12-24] MEDS: guaiFENesin SOLUTION 200 MG/10 ML CUP PO PRN (12:03)
[2016-12-24] MEDS: RESP: ALBUTEROL 2.5 MG/IPRATROPIUM 0.5 MG NEB (PRN) NEB (13:39)
--- NOTE | 2016-12-24 14:06 | HHI.PR ---
Subjective Remarks Some SOB Objective Vital Signs Date Time Temp Pulse Resp B/P (MAP) Pulse Ox O2 Delivery O2 Flow Rate FiO2 12/24/16 12:00 80 12/24/16 11:34 97.6 96 18 109/66 (80) 100 12/24/16 11:00 78 12/24/16 10:00 60 12/24/16 09:28 99 21 12/24/16 09:00 74 12/24/16 08:00 56 12/24/16 07:15 97.3 60 18 116/73 (87) 98 12/24/16 07:00 57 12/24/16 04:00 66 12/24/16 04:00 97.4 66 20 131/73 (92) 97 12/24/16 03:00 63 12/24/16 00:00 62 12/24/16 00:00 98.2 62 18 116/76 (89) 96 12/23/16 21:18 97 12/23/16 20:00 97.4 69 18 126/82 (97) 98 12/23/16 19:00 69 12/23/16 18:00 96 12/23/16 17:00 74 12/23/16 16:00 66 12/23/16 15:06 97.5 75 16 124/77 (93) 96 12/23/16 15:00 75 I/O 12/23/16 12/23/16 12/23/16 12/24/16 12/24/16 12/24/16 07:00 15:00 23:00 07:00 15:00 23:00 Intake Total 480 ml 720 ml 480 ml 700 ml Output Total 600 ml 650 ml 1050 ml Balance -120 ml 70 ml -570 ml 700 ml Intake Oral 480 ml 720 ml 480 ml IV Total 700 ml Output Urine Total 600 ml 650 ml 1050 ml Stool Total 0 ml # Bowel Movements 2 Result Diagram: 12/23/16 0645 12/24/16 0743 Imaging Alert, fully oriented Lungs: ventilated Heart: S1, S2 regular abdomen: obese , no mass Ext: no edema Cortez catheter Last Impressions Chest CT 12/23/16 1631 Signed Impressions: Service Date/Time: Friday, December 23, 2016 17:11 - CONCLUSION: 1. 1 cm irregular nodule in the right upper lobe. Guidelines from the Fleischner Society for the follow-up and management of newly detected indeterminate 8 mm or greater average diameter pulmonary nodules in persons >34 years old depend on nodule size (average of length and width) and underlying risk factors (including smoking and other risk factors). Please consider the following recommendations after clinical assessment of risk factors. For nodules >8 mm: 2. In low risk patients, follow-up CT at approximately 3, 9, and 24 months. In high risk patients, dynamic contrast-enhanced CT, PET, and/or biopsy. 3. Small right pleural effusion. 4. Mild underlying emphysema. 5. Coronary artery calcifications. Wilfredo Shah MD Chest X-Ray 12/20/16 8998 Signed Impressions: Service Date/Time: November 22:30 - CONCLUSION: Cardiomegaly. Storm Fernandez MD Current Medications Medications (Trade) Dose Ordered Sig/Marcos Route Start Time Stop Time Status Last Admin (NS Flush) 2 ml UNSCH PRN IVF 12/20/16 22:30 12/24/16 09:15 (Tylenol) 325 mg Q4H PRN PO 12/21/16 00:15 (Percocet 5-325 Mg) 1 tab Q4H PRN PO 12/21/16 00:15 (Percocet 10-325 Mg) 1 tab Q4H PRN PO 12/21/16 00:15 12/21/16 04:50 (Morphine Inj) 2 mg Q30M PRN IV PUSH 12/21/16 00:15 12/21/16 04:52 (Restoril) 15 mg HS PRN PO 12/21/16 00:15 (Zofran Inj) 4 mg Q6H PRN IVP 12/21/16 00:15 (Aspirin Chew) 81 mg DAILY PO 12/21/16 09:00 12/24/16 09:15 (Brilinta) 90 mg BID PO 12/21/16 09:00 12/24/16 09:15 (Lipitor) 40 mg HS PO 12/21/16 21:00 12/23/16 21:35 (Coreg) 3.125 mg Q12HR PO 12/21/16 09:00 12/24/16 09:15 (Apresoline Inj) 10 mg Q30M PRN IV PUSH 12/21/16 00:30 12/21/16 03:16 (Imdur) 60 mg DAILY@07 PO 12/21/16 00:30 12/24/16 06:42 (Duoneb Neb) 1 ampule Q4HR NEB PRN NEB 12/21/16 03:00 12/24/16 13:39 (Lasix) 20 mg DAILY PO 12/22/16 09:00 Future Hold 12/24/16 09:15 (Neurontin) 300 mg DAILY@0600 PO 12/21/16 10:15 12/24/16 06:42 (Neurontin) 400 mg HS PO 12/21/16 21:00 12/23/16 21:36 (NovoLIN N INJ) 22 units HS SQ 12/21/16 21:00 12/23/16 21:43 (Cozaar) 12.5 mg DAILY PO 12/22/16 09:00 12/24/16 09:15 (Spiriva Inh) 18 mcg DAILY INH 12/21/16 10:30 12/24/16 09:14 (Protonix) 20 mg AC BREAKFAST PO 12/22/16 07:00 12/24/16 06:42 (Robitussin Liq) 200 mg Q4H PRN PO 12/21/16 21:15 12/24/16 12:03 (Ofe-Colace) 1 tab BID PO 12/22/16 21:00 12/24/16 09:15 (Milk Of Magnesia Liq) 30 ml Q12H PRN PO 12/22/16 17:30 12/23/16 09:31 (Senokot) 17.2 mg Q12H PRN PO 12/22/16 17:30 12/22/16 17:56 (Dulcolax Supp) 10 mg DAILY PRN RECTAL 12/22/16 17:30 (Lactulose Liq) 30 ml DAILY PRN PO 12/22/16 17:30 (Tears Naturale Opth Soln) 1 drop Q4H PRN EACH EYE 12/22/16 17:30 (Duoneb Neb) 1 ampule QID NEB NEB 12/22/16 20:00 12/24/16 09:24 Sodium Chloride 1,000 ml @ 42 mls/hr [id number] IV 12/23/16 10:30 12/24/16 12:02 (SoluMEDROL INJ) 40 mg Q12HR IV 12/23/16 21:00 12/24/16 09:14 (D50w (Vial) Inj) 50 ml UNSCH PRN IV PUSH 12/23/16 18:00 (Glucagon Inj) 1 mg UNSCH PRN OTHER 12/23/16 18:00 (NovoLOG SUPPLEMENTAL SCALE) 1 ACHS SLIDING SCALE SQ 12/23/16 21:00 12/24/16 12:02 Assessment and Plan Problem List: (1) Atrial fibrillation ICD Codes: I48.91 - Atrial fibrillation Status: Acute Plan: In afib HR control Continue with current management (2) STEMI (ST elevation myocardial infarction) ICD Codes: I21.3 - ST elevation (STEMI) myocardial infarction of unspecified site Status: Acute Plan: No chest pain. Creatinine increasing further management by the managing team I will be available on a PRN basis Problem Qualifiers (1) STEMI (ST elevation myocardial infarction): Qualified Codes: I21.3 - ST elevation (STEMI) myocardial infarction of unspecified site Tiny Carr MD Dec 24, 2016 14:06
[2016-12-24] MEDS: ATORVASTATIN 40 MG TAB PO SCH (21:00)
[2016-12-24] MEDS: GABAPENTIN 400 MG CAP PO SCH (22:03)
[2016-12-24] MEDS: INSULIN HUMAN NPH 1,000 UNITS/10 ML VIAL SQ SCH (22:05)
[2016-12-25] VITALS (30 sets, daily range): BP systolic 128–161; BP diastolic 71–103; PULSE 61–92; RESP 18–22; TEMP 97.4–97.9; O2SAT 95–99
[2016-12-25] MEDS: SODIUM CHLOR 0.9% 1000 ML INJ 1,000 ML IV SCH ×2 (02:29→14:29)
[2016-12-25] MEDS: GABAPENTIN 300 MG CAP PO SCH (06:00)
[2016-12-25] MEDS: ISOSORBIDE MONONITRATE 60 MG TAB PO SCH (06:00)
[2016-12-25] MEDS: PANTOPRAZOLE SOD 20 MG DELAYED RELEASE TAB PO SCH (06:00)
[2016-12-25] MEDS: HIGH DOSE INSULIN NOVOLOG SUPPLEMENTAL SCALE SQ SCH ×4 (06:00→21:00)
[2016-12-25] MEDS: RESP: ALBUTEROL 2.5 MG/IPRATROPIUM 0.5 MG NEB (SCH) NEB ×4 (07:32→19:51)
--- NOTE | 2016-12-25 08:21 | PD.CARD.PN ---
Subjective Subjective Remarks complains of shortness of breath Objective Vital Signs / I&O Vital Signs Date Time Temp Pulse Resp B/P (MAP) Pulse Ox O2 Delivery O2 Flow Rate FiO2 12/25/16 07:36 98 21 12/25/16 07:00 61 12/25/16 06:00 68 12/25/16 05:00 65 12/25/16 04:00 63 12/25/16 03:00 97.4 86 18 128/71 (90) 96 12/25/16 03:00 62 12/25/16 02:00 76 12/25/16 01:00 74 12/25/16 00:00 78 12/24/16 23:00 97.9 71 16 143/87 (105) 98 12/24/16 23:00 73 12/24/16 22:00 73 12/24/16 21:00 68 12/24/16 20:15 99 12/24/16 20:00 72 12/24/16 19:00 97.4 90 20 143/87 (105) 100 12/24/16 19:00 64 12/24/16 18:00 86 12/24/16 17:00 66 12/24/16 16:00 66 12/24/16 15:11 97.4 73 18 129/71 (90) 100 12/24/16 15:00 76 12/24/16 14:00 64 12/24/16 13:00 74 12/24/16 12:00 80 12/24/16 11:34 97.6 96 18 109/66 (80) 100 12/24/16 11:00 78 12/24/16 10:00 60 12/24/16 09:28 99 21 12/24/16 09:00 74 I/O 12/24/16 12/24/16 12/24/16 12/25/16 12/25/16 12/25/16 07:00 15:00 23:00 07:00 15:00 23:00 Intake Total 480 ml 700 ml 1070 ml 480 ml Output Total 1050 ml 1300 ml 1675 ml Balance -570 ml 700 ml -230 ml -1195 ml Intake Oral 480 ml 820 ml 480 ml IV Total 700 ml 250 ml Output Urine Total 1050 ml 1300 ml 1675 ml # Bowel Movements 1 Physical Exam GENERAL: Well-nourished, well-developed patient in no apparent distress. NECK: No JVD. No carotid bruit. CARDIOVASCULAR: Regular rate and rhythm. S1/S2 no murmur, rub, or gallop. RESPIRATORY: No accessory muscle use. expiratory wheezing to auscultation. Breath sounds equal bilaterally. GASTROINTESTINAL: Abdomen soft, non-tender, nondistended. MUSCULOSKELETAL: Extremities without clubbing, cyanosis, or edema. Assessment and Plan Problem List: (1) NSTEMI (non-ST elevated myocardial infarction) ICD Codes: I21.4 - Non-ST elevation (NSTEMI) myocardial infarction (2) Shortness of breath dyspnea ICD Codes: R06.02 - Shortness of breath dyspnea Status: Acute (3) Acute renal failure ICD Codes: N17.9 - Acute renal failure Status: Acute Assessment and Plan There is no clinical evidence for CHF. He is wheezing and currently receiving bronchodilator therapy CKD - continue fluid, BMP pending. Once creatinine starts to improve he can likely go home CAD - continue present medical regimen Kory Jacobs Dec 25, 2016 08:21
[2016-12-25] MEDS: ASPIRIN 81 MG CHEW TAB PO SCH (10:25)
[2016-12-25] MEDS: methylPREDNISolone SOD SUCC 40 MG/1 ML VIAL IV SCH ×2 (10:25→20:46)
[2016-12-25] MEDS: DOCUSATE SODIUM 50 MG/SENNA 8.6 MG TAB PO SCH ×2 (10:26→20:46)
[2016-12-25] MEDS: TICAGRELOR 90 MG TAB PO SCH ×2 (10:26→20:46)
[2016-12-25] MEDS: TIOTROPIUM BROMIDE 18 MCG INH INH SCH (10:26)
[2016-12-25] MEDS: CARVEDILOL 3.125 MG TAB PO SCH ×2 (10:26→20:46)
--- NOTE | 2016-12-25 11:09 | PD.CONS ---
HPI Service Nephrology Consult Requested By Dr. Proctor Reason for Consult Acute and chronic kidney disease Primary Care Physician [facility] History of Present Illness Patient is a 86-year-old white male with history of substernal chest pain who underwent coronary artery intervention and stent was placed and LAD patient is a now having worsening of renal failure creatinine was slowly rising, this morning he was upset and did not do blood draws as he states that his IV was beeping at that was annoying to him. He is in a better mood now he is passing urine. He does have diabetes and underlying chronic kidney disease the creatinine was 1.95 and went 2.6 after heart catheterization, he is being followed by urology Dr. Nguyen Review of Systems Constitutional: COMPLAINS OF: Fatigue Cardiovascular: COMPLAINS OF: Chest pain Genitourinary: COMPLAINS OF: Urgency Musculoskeletal: COMPLAINS OF: Joint pain Psychiatric: COMPLAINS OF: Anxiety Past Family Social History Allergies: Coded Allergies: penicillin G (Unverified Allergy, Severe, 12/05/16) warfarin (Unverified Allergy, Severe, 12/05/16) Past Medical History Diabetes Hypertension Chronic kidney disease Prostate cancer Coronary artery disease Atrial fibrillation Past Surgical History History of prostate surgery Coronary intervention with previous stent Tonsillectomy Hand surgery Reported Medications Reported Meds & Active Scripts Active Furosemide 20 Mg Tab 20 Mg PO DAILY 30 Days Azithromycin 250 Mg Tab 250 Mg PO DAILY@20 2 Days Prednisone 20 Mg Tab 20 Mg PO BID 3 Days Reported Lactobacillus Acidophilus 1 Billion Cell Tab 1 Tab PO TIDAC Renacidin Irr (Citric Mvdo-Fiojsdohyuq-Fpbzgpcdl Carbon Irr) 500 Ml Soln 30 Ml IRRIGATION WEEKLY Spiriva Handihaler (Tiotropium Inh) 18 Mcg Cap 18 Mcg INH DAILY 1 capsule = 18 mcg Rosuvastatin (Rosuvastatin Calcium) 20 Mg Tab 10 Mg PO HS Omeprazole 20 Mg Cap 20 Mg PO AC BREAKFAST Losartan (Losartan Potassium) 25 Mg Tab 12.5 Mg PO DAILY Novolog Inj (Insulin Aspart) 100 Unit/Ml Inj 12 SQ TIDAC Novolin N Inj (Insulin Human NPH) 1,000 Unit/10 Ml Vial 22 Units SQ HS Gabapentin 400 Mg Cap 400 Cap PO HS Gabapentin 300 Mg Cap 300 Mg PO DAILY@0600 Vitamin D-3 (Cholecalciferol) 1,000 Unit Tab 1,000 Units PO DAILY Carvedilol 6.25 Mg Tab 6.25 Mg PO BID Ascorbic Acid 500 Mg Tab 500 Mg PO Proair Respiclick Inh (Albuterol Sulfate) 90 Mcg/Act Aerp 1 Puff INH Q4H PRN Active Ordered Medications Current Medications Medications (Trade) Dose Ordered Sig/Marcos Route Start Time Stop Time Status Last Admin (NS Flush) 2 ml UNSCH PRN IVF 12/20/16 22:30 12/24/16 09:15 (Tylenol) 325 mg Q4H PRN PO 12/21/16 00:15 (Percocet 5-325 Mg) 1 tab Q4H PRN PO 12/21/16 00:15 (Percocet 10-325 Mg) 1 tab Q4H PRN PO 12/21/16 00:15 12/21/16 04:50 (Morphine Inj) 2 mg Q30M PRN IV PUSH 12/21/16 00:15 12/21/16 04:52 (Restoril) 15 mg HS PRN PO 12/21/16 00:15 (Zofran Inj) 4 mg Q6H PRN IVP 12/21/16 00:15 (Aspirin Chew) 81 mg DAILY PO 12/21/16 09:00 12/25/16 10:25 (Brilinta) 90 mg BID PO 12/21/16 09:00 12/25/16 10:26 (Lipitor) 40 mg HS PO 12/21/16 21:00 12/24/16 21:00 (Coreg) 3.125 mg Q12HR PO 12/21/16 09:00 12/25/16 10:26 (Apresoline Inj) 10 mg Q30M PRN IV PUSH 12/21/16 00:30 12/21/16 03:16 (Imdur) 60 mg DAILY@07 PO 12/21/16 00:30 12/24/16 06:42 (Duoneb Neb) 1 ampule Q4HR NEB PRN NEB 12/21/16 03:00 12/24/16 13:39 (Neurontin) 300 mg DAILY@0600 PO 12/21/16 10:15 12/24/16 06:42 (Neurontin) 400 mg HS PO 12/21/16 21:00 12/24/16 22:03 (NovoLIN N INJ) 22 units HS SQ 12/21/16 21:00 12/24/16 22:05 (Spiriva Inh) 18 mcg DAILY INH 12/21/16 10:30 12/25/16 10:26 (Protonix) 20 mg AC BREAKFAST PO 12/22/16 07:00 12/24/16 06:42 (Robitussin Liq) 200 mg Q4H PRN PO 12/21/16 21:15 12/24/16 12:03 (Ofe-Colace) 1 tab BID PO 12/22/16 21:00 12/25/16 10:26 (Milk Of Magnesia Liq) 30 ml Q12H PRN PO 12/22/16 17:30 12/23/16 09:31 (Senokot) 17.2 mg Q12H PRN PO 12/22/16 17:30 12/22/16 17:56 (Dulcolax Supp) 10 mg DAILY PRN RECTAL 12/22/16 17:30 (Lactulose Liq) 30 ml DAILY PRN PO 12/22/16 17:30 (Tears Naturale Opth Soln) 1 drop Q4H PRN EACH EYE 12/22/16 17:30 (Duoneb Neb) 1 ampule QID NEB NEB 12/22/16 20:00 12/25/16 07:32 Sodium Chloride 1,000 ml @ 83 mls/hr Q12H3M IV 12/23/16 10:30 12/25/16 02:29 (SoluMEDROL INJ) 40 mg Q12HR IV 12/23/16 21:00 12/25/16 10:25 (D50w (Vial) Inj) 50 ml UNSCH PRN IV PUSH 12/23/16 18:00 (Glucagon Inj) 1 mg UNSCH PRN OTHER 12/23/16 18:00 (NovoLOG SUPPLEMENTAL SCALE) 1 ACHS SLIDING SCALE SQ 12/23/16 21:00 12/24/16 21:00 Family History Noncontributory Social History Denies current smoking quit smoking at age 53 or alcohol use Physical Exam Vital Signs Vital Signs Date Time Temp Pulse Resp B/P (MAP) Pulse Ox O2 Delivery O2 Flow Rate FiO2 12/25/16 08:10 97.5 78 19 150/99 (116) 98 12/25/16 07:36 98 21 12/25/16 07:00 61 12/25/16 06:00 68 12/25/16 05:00 65 12/25/16 04:00 63 12/25/16 03:00 97.4 86 18 128/71 (90) 96 12/25/16 03:00 62 12/25/16 02:00 76 12/25/16 01:00 74 12/25/16 00:00 78 12/24/16 23:00 97.9 71 16 143/87 (105) 98 12/24/16 23:00 73 12/24/16 22:00 73 12/24/16 21:00 68 12/24/16 20:15 99 12/24/16 20:00 72 12/24/16 19:00 97.4 90 20 143/87 (105) 100 12/24/16 19:00 64 12/24/16 18:00 86 12/24/16 17:00 66 12/24/16 16:00 66 12/24/16 15:11 97.4 73 18 129/71 (90) 100 12/24/16 15:00 76 12/24/16 14:00 64 12/24/16 13:00 74 12/24/16 12:00 80 12/24/16 11:34 97.6 96 18 109/66 (80) 100 12/24/16 11:00 78 Physical Exam GENERAL: Well-nourished, well-developed patient. SKIN: Warm and dry. HEAD: Normocephalic. EYES: No scleral icterus. No injection or drainage. NECK: Supple, trachea midline. No JVD or lymphadenopathy. CARDIOVASCULAR: Irregular rhythm without murmurs, gallops, or rubs. RESPIRATORY: Breath sounds equal bilaterally. No accessory muscle use. GASTROINTESTINAL: Abdomen soft, non-tender, nondistended. EXTREMITIES: No cyanosis, or edema. NEUROLOGICAL: Awake, alert, and oriented x 3. Non-focal. Result Diagram: 12/23/16 0645 12/24/16 0743 Imaging Last Impressions Chest CT 12/23/16 1631 Signed Impressions: Service Date/Time: Friday, December 23, 2016 17:11 - CONCLUSION: 1. 1 cm irregular nodule in the right upper lobe. Guidelines from the Fleischner Society for the follow-up and management of newly detected indeterminate 8 mm or greater average diameter pulmonary nodules in persons >34 years old depend on nodule size (average of length and width) and underlying risk factors (including smoking and other risk factors). Please consider the following recommendations after clinical assessment of risk factors. For nodules >8 mm: 2. In low risk patients, follow-up CT at approximately 3, 9, and 24 months. In high risk patients, dynamic contrast-enhanced CT, PET, and/or biopsy. 3. Small right pleural effusion. 4. Mild underlying emphysema. 5. Coronary artery calcifications. Wilfredo Shah MD Chest X-Ray 12/20/16 4483 Signed Impressions: Service Date/Time: November 22:30 - CONCLUSION: Cardiomegaly. Storm Fernandez MD Assessment and Plan Problem List: (1) Acute renal failure ICD Codes: N17.9 - Acute renal failure Status: Acute Plan: Patient now agrees to do blood tests and will wait for the blood tests repeat kidney ultrasound follow renal functions closely He has exposure to recent dye Avoid nephrotoxins Follow BMP (2) Chronic kidney disease, stage III (moderate) ICD Codes: N18.3 - Chronic kidney disease, stage III (moderate) Status: Acute Plan: Patient has underlying diabetes (3) DM (diabetes mellitus) ICD Codes: E11.9 - DM (diabetes mellitus) Status: Acute Plan: Continue to monitor (4) Hypertension ICD Codes: I10 - Hypertension Status: Acute Plan: Continue to monitor (5) Atrial fibrillation ICD Codes: I48.91 - Atrial fibrillation Status: Acute Problem Qualifiers (1) DM (diabetes mellitus): Angi Bae MD Dec 25, 2016 11:08
--- NOTE | 2016-12-25 11:54 | HHI.PR ---
Subjective Remarks Patient refused lab this morning. He states he still gets short of breath with activities. No chest pain. States he did not sleep well because IV was beeping. Objective Vitals Vital Signs Date Time Temp Pulse Resp B/P (MAP) Pulse Ox O2 Delivery O2 Flow Rate FiO2 12/25/16 11:31 97.7 78 19 150/102 (118) 98 12/25/16 08:10 97.5 78 19 150/99 (116) 98 12/25/16 07:36 98 21 12/25/16 07:00 61 12/25/16 06:00 68 12/25/16 05:00 65 12/25/16 04:00 63 12/25/16 03:00 97.4 86 18 128/71 (90) 96 12/25/16 03:00 62 12/25/16 02:00 76 12/25/16 01:00 74 12/25/16 00:00 78 12/24/16 23:00 97.9 71 16 143/87 (105) 98 12/24/16 23:00 73 12/24/16 22:00 73 12/24/16 21:00 68 12/24/16 20:15 99 12/24/16 20:00 72 12/24/16 19:00 97.4 90 20 143/87 (105) 100 12/24/16 19:00 64 12/24/16 18:00 86 12/24/16 17:00 66 12/24/16 16:00 66 12/24/16 15:11 97.4 73 18 129/71 (90) 100 12/24/16 15:00 76 12/24/16 14:00 64 12/24/16 13:00 74 12/24/16 12:00 80 I/O 12/24/16 12/24/16 12/24/16 12/25/16 12/25/16 12/25/16 07:00 15:00 23:00 07:00 15:00 23:00 Intake Total 480 ml 700 ml 1070 ml 480 ml Output Total 1050 ml 1300 ml 1675 ml Balance -570 ml 700 ml -230 ml -1195 ml Intake Oral 480 ml 820 ml 480 ml IV Total 700 ml 250 ml Output Urine Total 1050 ml 1300 ml 1675 ml # Bowel Movements 1 Result Diagram: 12/23/16 0645 12/24/16 0743 Imaging Last Impressions Renal Ultrasound 12/25/16 0000 Signed Impressions: Service Date/Time: Sunday, December 25, 2016 11:37 - CONCLUSION: 1. Echogenic kidneys bilaterally compatible with medical renal disease. Kenji Calderon MD Chest CT 12/23/16 1631 Signed Impressions: Service Date/Time: Friday, December 23, 2016 17:11 - CONCLUSION: 1. 1 cm irregular nodule in the right upper lobe. Guidelines from the Fleischner Society for the follow-up and management of newly detected indeterminate 8 mm or greater average diameter pulmonary nodules in persons >34 years old depend on nodule size (average of length and width) and underlying risk factors (including smoking and other risk factors). Please consider the following recommendations after clinical assessment of risk factors. For nodules >8 mm: 2. In low risk patients, follow-up CT at approximately 3, 9, and 24 months. In high risk patients, dynamic contrast-enhanced CT, PET, and/or biopsy. 3. Small right pleural effusion. 4. Mild underlying emphysema. 5. Coronary artery calcifications. Wilfredo Shah MD Chest X-Ray 12/20/16 2223 Signed Impressions: Service Date/Time: November 22:30 - CONCLUSION: Cardiomegaly. Storm Fernandez MD Objective Remarks GENERAL: Morbidly obese elderly male CARDIOVASCULAR: Normal rate and regular rhythm without murmurs, gallops, or rubs. RESPIRATORY: Good respiratory efforts. Diminished breath sounds throughout. GASTROINTESTINAL: Abdomen soft, non-tender, non-distended. Normal active bowel sounds MUSCULOSKELETAL: Extremities without cyanosis NEURO: Alert & Oriented x4 to person, place, time, situation. Moves all ext x4 PSYCH: Irritable mood. Procedures 12/20/16 cardiac catheterization A/P Problem List: (1) STEMI (ST elevation myocardial infarction) ICD Code: I21.3 - ST elevation (STEMI) myocardial infarction of unspecified site Status: Acute (2) DM (diabetes mellitus) ICD Code: E11.9 - DM (diabetes mellitus) Status: Acute (3) Chronic kidney disease, stage III (moderate) ICD Code: N18.3 - Chronic kidney disease, stage III (moderate) Status: Acute (4) Chronic obstructive pulmonary disease ICD Code: J44.9 - Chronic obstructive pulmonary disease Status: Acute (5) Atrial fibrillation ICD Code: I48.91 - Atrial fibrillation Status: Acute (6) Hypertension ICD Code: I10 - Hypertension Status: Acute (7) Hyperlipidemia ICD Code: E78.5 - Hyperlipidemia Status: Acute Assessment and Plan 86-year-old male with: STEMI: Status post cardiac catheterization with stent placement. Management per cardiology. Continue aspirin, statin, beta jessica, Brilinta. Acute kidney injury superimposed on chronic kidney disease: Possible contrast nephropathy. Nephrology following. Lasix on hold. Gentle IV fluid hydration. Labs pending today as patient refused earlier this morning. Hypertension: Continue antihypertensive medications. Monitor blood pressure. Questionable history of CHF: Echocardiogram shows hyperdynamic left ventricular systolic function with EF 65-70%. Lasix on hold. We'll be cautious with IV fluids. COPD: Continue supplemental oxygen. Bronchodilators. Appreciate pulmonology recommendations. Patient is now stable on room air. Diabetes mellitus: Monitor Accu-Cheks and cover with sliding scale insulin. DVT prophylaxis: Patient is on Brilinta. Problem Qualifiers (1) STEMI (ST elevation myocardial infarction): Qualified Codes: I21.3 - ST elevation (STEMI) myocardial infarction of unspecified site (2) DM (diabetes mellitus): Alba Rivera MD Dec 25, 2016 11:54
--- NOTE | 2016-12-25 12:18 | RADRPT ---
EXAM DATE/TIME: 12/25/2016 11:37 [facility] COMPARISON: US KIDNEY/RENAL/BLADDER, November 01, 2014, 9:51. INDICATIONS : Increased BUN/Creatinine. MEDICAL HISTORY : Myocardial infarction. Congestive heart failure. Hypercholesterolemia. Seizures. Coronary artery dise ase. Afib. Hypertension. COPD. Pneumonia. Sleep apnea. Ulcer. Prostate cancer. Arthritis. Diabetes. D epression. Anxiety. Measles. Neuropathy.Blood transfusion. Cdiff. SURGICAL HISTORY : Appendectomy. Tonsillectomy. Prostatectomy. Coronary artery stent. Suprapubic catheter with removal. Left finger repair. ENCOUNTER: Subsequent ACUITY: 1 day PAIN SCORE: 0/10 LOCATION: Bilateral flank MEASUREMENTS: RIGHT KIDNEY: 12.1 x 5.8 x 5.2 cm LEFT KIDNEY: 12.8 x 6.0 x 5.6 cm FINDINGS: The kidneys demonstrates increased echogenicity of the cortex compatible with medical renal disease. No hydronephrosis or mass lesions are identified. There is a single simple cyst in the left kidney m easuring 2 cm. A Cortez catheter is present within the bladder which does not allow for evaluation. CONCLUSION: 1. Echogenic kidneys bilaterally compatible with medical renal disease. Kenji Calderon MD on December 25, 2016 at 12:15 Board Certified Radiologist. This report was verified electronically.
[2016-12-25] MEDS: guaiFENesin SOLUTION 200 MG/10 ML CUP PO PRN (14:43)
--- NOTE | 2016-12-25 18:47 | HHI.PR ---
Subjective Remarks Has some SOB. On O2 2L. CT chest shows a 1 CM RUL nodule. Objective Vital Signs Date Time Temp Pulse Resp B/P (MAP) Pulse Ox O2 Delivery O2 Flow Rate FiO2 12/25/16 18:00 72 12/25/16 17:00 74 12/25/16 16:00 72 12/25/16 15:32 97.5 88 19 150/80 (103) 96 12/25/16 15:08 99 21 12/25/16 15:01 72 12/25/16 14:00 82 12/25/16 13:00 68 12/25/16 12:00 86 12/25/16 11:31 97.7 78 19 150/102 (118) 98 12/25/16 11:00 61 12/25/16 10:00 88 12/25/16 09:00 90 12/25/16 08:10 97.5 78 19 150/99 (116) 98 12/25/16 08:00 72 12/25/16 07:36 98 21 12/25/16 07:00 61 12/25/16 06:00 68 12/25/16 05:00 65 12/25/16 04:00 63 12/25/16 03:00 97.4 86 18 128/71 (90) 96 12/25/16 03:00 62 12/25/16 02:00 76 12/25/16 01:00 74 12/25/16 00:00 78 12/24/16 23:00 97.9 71 16 143/87 (105) 98 12/24/16 23:00 73 12/24/16 22:00 73 12/24/16 21:00 68 12/24/16 20:15 99 12/24/16 20:00 72 12/24/16 19:00 97.4 90 20 143/87 (105) 100 12/24/16 19:00 64 I/O 12/24/16 12/24/16 12/24/16 12/25/16 12/25/16 12/25/16 07:00 15:00 23:00 07:00 15:00 23:00 Intake Total 480 ml 700 ml 1070 ml 480 ml 2634 ml Output Total 1050 ml 1300 ml 1675 ml 1350 ml Balance -570 ml 700 ml -230 ml -1195 ml 1284 ml Intake Oral 480 ml 820 ml 480 ml 720 ml IV Total 700 ml 250 ml 1914 ml Output Urine Total 1050 ml 1300 ml 1675 ml 1350 ml # Bowel Movements 1 Result Diagram: 12/23/16 0645 12/24/16 0743 Objective Remarks GENERAL: This is an obese elderly white male who is alert and anxious. HEAD, EYES, EARS, NOSE, THROAT: Head normocephalic. The pupils are reactive. Tongue is moist. Throat was clear. Nasal mucosa injected. NECK: The neck is supple. No bruits. Mild venous distention. Trachea is midline. CHEST: Distant breath sounds. A few wheezes scattered. No crackles. HEART: Heart sounds are regular. S1-S2. No murmur. No S3. ABDOMEN: Abdomen is soft and protuberant without masses. No organomegaly or tenderness. The bowel sounds are active. EXTREMITIES: Mild peripheral edema with diminished pulses. NEUROLOGIC: Reflexes are 1+. No gross motor deficits. Cranial nerves are grossly intact. RECTAL: Rectal exam is deferred. SKIN: No lesions. Assessment and Plan Assessment and Plan IMPRESSION: 1. COPD with emphysema and chronic bronchitis. 2. STEMI status post cardiac catheterization and stent placement. 3. Hypertension. 4. Diabetes mellitus. 5. Deconditioning. 6. Possible obstructive sleep apnea. 7. Right upper lobe nodule Plan : 1. Cont Nebs qid , duoneb. 2. Check O2 sat on RA with 6 min walk test 3. Add Symbicort , 2puffs bid. 4. Will need PET CT as OP or CT chest in 3 mths. 5. Will get PFT 6. O2 prn 2 L. 7. Solumedrol 40 mg IV BID and switch to Prednisone in am Radha Ramirez MD Dec 25, 2016 18:47
[2016-12-25] MEDS: GABAPENTIN 400 MG CAP PO SCH (20:47)
[2016-12-25] MEDS: ATORVASTATIN 40 MG TAB PO SCH (20:47)
[2016-12-25] MEDS: INSULIN HUMAN NPH 1,000 UNITS/10 ML VIAL SQ SCH (21:00)
[2016-12-25] MEDS: hydrALAZINE HCL 20 MG/ML VIAL IV PUSH PRN (22:27)
[2016-12-26] VITALS (29 sets, daily range): BP systolic 120–155; BP diastolic 70–95; PULSE 62–96; RESP 19–24; TEMP 97.4–97.9; O2SAT 97–100
[2016-12-26] MEDS: SODIUM CHLOR 0.9% 1000 ML INJ 1,000 ML IV SCH ×2 (02:07→16:59)
[2016-12-26] MEDS: guaiFENesin SOLUTION 200 MG/10 ML CUP PO PRN ×3 (03:54→21:14)
[2016-12-26] MEDS: PANTOPRAZOLE SOD 20 MG DELAYED RELEASE TAB PO SCH (05:41)
[2016-12-26] MEDS: HIGH DOSE INSULIN NOVOLOG SUPPLEMENTAL SCALE SQ SCH ×4 (05:41→21:00)
[2016-12-26] MEDS: GABAPENTIN 300 MG CAP PO SCH (05:42)
[2016-12-26] MEDS: ISOSORBIDE MONONITRATE 60 MG TAB PO SCH (05:42)
[2016-12-26 06:52] LABS: AUTOMATED NEUTROPHIL # 17.9 TH/MM3 (1.8-7.7); HEMATOCRIT 34.3 % (39.0-51.0); LYMPH % 2.4 % (9.0-44.0); LYMPHOCYTE # 0.5 TH/MM3 (1.0-4.8); MEAN CELL VOLUME 86.5 FL (80.0-100.0); MEAN CORPUSCULAR HEMOGLOBIN 27.6 PG (27.0-34.0); MEAN CORPUSCULAR HGB CONC 31.9 % (32.0-36.0); MONO % 5.8 % (0.0-8.0); NEUT % 91.8 % (16.0-70.0); PLATELET COUNT 254 TH/MM3 (150-450); RED BLOOD COUNT 3.97 MIL/MM3 (4.50-5.90); RED CELL DISTRIBUTION WIDTH 15.8 % (11.6-17.2); WHITE BLOOD COUNT 19.5 TH/MM3 (4.0-11.0)
[2016-12-26 07:05] LABS: HEMO FLAGS AUTO DIFF
[2016-12-26 07:17] LABS: BICARBONATE 21.5 MEQ/L (21.0-32.0); POTASSIUM 4.9 MEQ/L (3.5-5.1)
[2016-12-26] MEDS: RESP: ALBUTEROL 2.5 MG/IPRATROPIUM 0.5 MG NEB (SCH) NEB ×3 (07:54→16:34)
--- NOTE | 2016-12-26 08:32 | PD.CARD.PN ---
Subjective Subjective Remarks continues with shortness of breath (Kory Jacobs) Objective Vital Signs / I&O Vital Signs Date Time Temp Pulse Resp B/P (MAP) Pulse Ox O2 Delivery O2 Flow Rate FiO2 12/26/16 07:56 99 Nasal Cannula 1.50 12/26/16 07:30 97.6 71 19 153/87 (109) 98 12/26/16 06:00 68 12/26/16 05:00 96 12/26/16 04:00 86 12/26/16 03:00 85 12/26/16 03:00 97.9 87 24 155/95 (115) 98 12/26/16 02:00 68 12/26/16 01:00 80 12/26/16 00:00 62 12/25/16 23:00 97.9 87 22 156/95 (115) 98 12/25/16 23:00 92 12/25/16 22:23 161/95 (117) 12/25/16 22:00 62 12/25/16 21:00 74 12/25/16 20:00 76 12/25/16 19:00 77 12/25/16 19:00 97.8 80 22 161/103 (122) 95 12/25/16 18:00 72 12/25/16 17:00 74 12/25/16 16:00 72 12/25/16 15:32 97.5 88 19 150/80 (103) 96 12/25/16 15:08 99 21 12/25/16 15:01 72 12/25/16 14:00 82 12/25/16 13:00 68 12/25/16 12:00 86 12/25/16 11:31 97.7 78 19 150/102 (118) 98 12/25/16 11:00 61 12/25/16 10:00 88 12/25/16 09:00 90 I/O 12/25/16 12/25/16 12/25/16 12/26/16 12/26/16 12/26/16 07:00 15:00 23:00 07:00 15:00 23:00 Intake Total 480 ml 2634 ml 480 ml Output Total 1675 ml 1350 ml 2500 ml Balance -1195 ml 1284 ml -2020 ml Intake Oral 480 ml 720 ml 480 ml IV Total 1914 ml Output Urine Total 1675 ml 1350 ml 2500 ml # Bowel Movements 2 Physical Exam GENERAL: Well-nourished, well-developed patient in no apparent distress. NECK: No JVD. No carotid bruit. CARDIOVASCULAR: Regular rate and rhythm. S1/S2 no murmur, rub, or gallop. RESPIRATORY: No accessory muscle use. expiratory wheezing to auscultation. Breath sounds equal bilaterally. GASTROINTESTINAL: Abdomen soft, non-tender, nondistended. MUSCULOSKELETAL: Extremities without clubbing, cyanosis, or edema. Laboratory Laboratory Tests Test 12/26/16 05:25 White Blood Count 19.5 TH/MM3 Red Blood Count 3.97 MIL/MM3 Hemoglobin 10.9 GM/DL Hematocrit 34.3 % Mean Corpuscular Volume 86.5 FL Mean Corpuscular Hemoglobin 27.6 PG Mean Corpuscular Hemoglobin Concent 31.9 % Red Cell Distribution Width 15.8 % Platelet Count 254 TH/MM3 Mean Platelet Volume 8.7 FL Neutrophils (%) (Auto) 91.8 % Lymphocytes (%) (Auto) 2.4 % Monocytes (%) (Auto) 5.8 % Eosinophils (%) (Auto) 0.0 % Basophils (%) (Auto) 0.0 % Neutrophils # (Auto) 17.9 TH/MM3 Lymphocytes # (Auto) 0.5 TH/MM3 Monocytes # (Auto) 1.1 TH/MM3 Eosinophils # (Auto) 0.0 TH/MM3 Basophils # (Auto) 0.0 TH/MM3 CBC Comment AUTO DIFF Blood Urea Nitrogen 75 MG/DL Creatinine 2.57 MG/DL Random Glucose 114 MG/DL Calcium Level 8.4 MG/DL Sodium Level 138 MEQ/L Potassium Level 4.9 MEQ/L Chloride Level 107 MEQ/L Carbon Dioxide Level 21.5 MEQ/L Anion Gap 10 MEQ/L Estimat Glomerular Filtration Rate 24 ML/MIN (Kory Jacobs) Assessment and Plan Problem List: (1) NSTEMI (non-ST elevated myocardial infarction) ICD Codes: I21.4 - Non-ST elevation (NSTEMI) myocardial infarction (2) Shortness of breath dyspnea ICD Codes: R06.02 - Shortness of breath dyspnea Status: Acute (3) Acute renal failure ICD Codes: N17.9 - Acute renal failure Status: Acute Assessment and Plan There is no clinical evidence for CHF. CKD - continue fluid,slight improvement in creatinine CAD - continue present medical regimen (Kory Jacobs) Assessment and Plan cad - cont current regimen arf on ckd - Cr now improving. Will likely cont to trend towards baseline. will cut back on IVF now. holding ARB for Cr. SOB - + COPD. dc bb due to wheeze. htn - add hydralazine now that Cr is improving. DC planning once resp status stable. hopefully, DC tomorrow or Saturday. need optimization of pulmonary regimen would benefit from SNF but patient not very agreeable. (Marin Frazier MD) Kory Jacobs Dec 26, 2016 08:32 Marin Frazier MD Dec 26, 2016 11:09
[2016-12-26 09:42] LABS: SCAN/DIFF AUTO DIFF CONFIRMED
--- NOTE | 2016-12-26 09:46 | HHI.PR ---
Subjective Remarks Patient reports persistent shortness of breath with minimal activity. States he had an acute episode of shortness of breath earlier this morning. Currently feeling a little better. States he was unable to do the oxygen walk test secondary to pain in his leg and extreme fatigue. Objective Vitals Vital Signs Date Time Temp Pulse Resp B/P (MAP) Pulse Ox O2 Delivery O2 Flow Rate FiO2 12/26/16 07:56 99 Nasal Cannula 1.50 12/26/16 07:30 97.6 71 19 153/87 (109) 98 12/26/16 06:00 68 12/26/16 05:00 96 12/26/16 04:00 86 12/26/16 03:00 85 12/26/16 03:00 97.9 87 24 155/95 (115) 98 12/26/16 02:00 68 12/26/16 01:00 80 12/26/16 00:00 62 12/25/16 23:00 97.9 87 22 156/95 (115) 98 12/25/16 23:00 92 12/25/16 22:23 161/95 (117) 12/25/16 22:00 62 12/25/16 21:00 74 12/25/16 20:00 76 12/25/16 19:00 77 12/25/16 19:00 97.8 80 22 161/103 (122) 95 12/25/16 18:00 72 12/25/16 17:00 74 12/25/16 16:00 72 12/25/16 15:32 97.5 88 19 150/80 (103) 96 12/25/16 15:08 99 21 12/25/16 15:01 72 12/25/16 14:00 82 12/25/16 13:00 68 12/25/16 12:00 86 12/25/16 11:31 97.7 78 19 150/102 (118) 98 12/25/16 11:00 61 12/25/16 10:00 88 I/O 12/25/16 12/25/16 12/25/16 12/26/16 12/26/16 12/26/16 07:00 15:00 23:00 07:00 15:00 23:00 Intake Total 480 ml 2634 ml 480 ml Output Total 1675 ml 1350 ml 2500 ml Balance -1195 ml 1284 ml -2020 ml Intake Oral 480 ml 720 ml 480 ml IV Total 1914 ml Output Urine Total 1675 ml 1350 ml 2500 ml # Bowel Movements 2 Result Diagram: 12/26/1652412/26/16524 Objective Remarks GENERAL: Morbidly obese elderly male CARDIOVASCULAR: Normal rate and regular rhythm without murmurs, gallops, or rubs. RESPIRATORY: Good respiratory efforts. Diminished breath sounds throughout. GASTROINTESTINAL: Abdomen soft, non-tender, non-distended. Normal active bowel sounds MUSCULOSKELETAL: Extremities without cyanosis NEURO: Alert & Oriented x4 to person, place, time, situation. Moves all ext x4 PSYCH: Irritable mood. Procedures 12/20/16 cardiac catheterization A/P Problem List: (1) STEMI (ST elevation myocardial infarction) ICD Code: I21.3 - ST elevation (STEMI) myocardial infarction of unspecified site Status: Acute (2) DM (diabetes mellitus) ICD Code: E11.9 - DM (diabetes mellitus) Status: Acute (3) Chronic kidney disease, stage III (moderate) ICD Code: N18.3 - Chronic kidney disease, stage III (moderate) Status: Acute (4) Chronic obstructive pulmonary disease ICD Code: J44.9 - Chronic obstructive pulmonary disease Status: Acute (5) Atrial fibrillation ICD Code: I48.91 - Atrial fibrillation Status: Acute (6) Hypertension ICD Code: I10 - Hypertension Status: Acute (7) Hyperlipidemia ICD Code: E78.5 - Hyperlipidemia Status: Acute Assessment and Plan 86-year-old male with: STEMI: Status post cardiac catheterization with stent placement. Management per cardiology. Continue aspirin, statin, beta jessica, Brilinta. Acute kidney injury superimposed on chronic kidney disease: Possible contrast nephropathy. Nephrology following. Lasix on hold. Gentle IV fluid hydration. Creatinine and GFR slightly improved. BUN still high. Renal ultrasound consistent with medical renal disease. Hypertension: Continue antihypertensive medications. Monitor blood pressure. Questionable history of CHF: Echocardiogram shows hyperdynamic left ventricular systolic function with EF 65-70%. Lasix on hold. We'll be cautious with IV fluids. COPD: Continue supplemental oxygen. Bronchodilators. Appreciate pulmonology recommendations. -On IV Solu-Medrol. Diabetes mellitus: Monitor Accu-Cheks and cover with sliding scale insulin. DVT prophylaxis: Patient is on Brilinta. Problem Qualifiers (1) STEMI (ST elevation myocardial infarction): Qualified Codes: I21.3 - ST elevation (STEMI) myocardial infarction of unspecified site (2) DM (diabetes mellitus): Alba Rivera MD Dec 26, 2016 09:46
[2016-12-26] MEDS: methylPREDNISolone SOD SUCC 40 MG/1 ML VIAL IV SCH (09:53)
[2016-12-26] MEDS: TICAGRELOR 90 MG TAB PO SCH ×2 (09:53→21:14)
[2016-12-26] MEDS: CARVEDILOL 3.125 MG TAB PO SCH (09:54)
[2016-12-26] MEDS: DOCUSATE SODIUM 50 MG/SENNA 8.6 MG TAB PO SCH ×2 (09:54→21:14)
[2016-12-26] MEDS: ASPIRIN 81 MG CHEW TAB PO SCH (09:54)
[2016-12-26] MEDS: TIOTROPIUM BROMIDE 18 MCG INH INH SCH (10:32)
--- NOTE | 2016-12-26 11:57 | HHI.NPPN ---
Subjective History of Present Illness 86 year old with CKD cr 1.9 had heart cath Cr went up now declined Additional Remarks c/o shortness of breath Review of Systems General Constitutional: Fatigue Cardiovascular Cardiac: ARREAGA Objective Data Data Vital Signs Date Time Temp Pulse Resp B/P (MAP) Pulse Ox O2 Delivery O2 Flow Rate FiO2 12/26/16 07:56 99 Nasal Cannula 1.50 12/26/16 07:30 97.6 71 19 153/87 (109) 98 12/26/16 06:00 68 12/26/16 05:00 96 12/26/16 04:00 86 12/26/16 03:00 85 12/26/16 03:00 97.9 87 24 155/95 (115) 98 12/26/16 02:00 68 12/26/16 01:00 80 12/26/16 00:00 62 12/25/16 23:00 97.9 87 22 156/95 (115) 98 12/25/16 23:00 92 12/25/16 22:23 161/95 (117) 12/25/16 22:00 62 12/25/16 21:00 74 12/25/16 20:00 76 12/25/16 19:00 77 12/25/16 19:00 97.8 80 22 161/103 (122) 95 12/25/16 18:00 72 12/25/16 17:00 74 12/25/16 16:00 72 12/25/16 15:32 97.5 88 19 150/80 (103) 96 12/25/16 15:08 99 21 12/25/16 15:01 72 12/25/16 14:00 82 12/25/16 13:00 68 12/25/16 12:00 86 -: 12/26/16 0525 12/26/16 0525 Physical Exam Eyes Eye Exam: Pupils Equal Neck Neck Exam: Neck Supple Pulmonary Resp Exam: Decreased Bases Cardiology CV Exam: Regular Gastrointestinal/Abdomen GI Exam: Soft, Non-Tender, Bowel Sounds Present Extremeties Extremities Exam: No Edema Neurologic Neuro Exam: Alert, Awake Assessment/Plan Problem List: (1) Acute renal failure ICD Codes: N17.9 - Acute renal failure Status: Acute Plan: Patient has declined cr to 2.5 range give Lasix STOP ivf He has exposure to recent dye Avoid nephrotoxins Follow BMP (2) Chronic kidney disease, stage III (moderate) ICD Codes: N18.3 - Chronic kidney disease, stage III (moderate) Status: Acute Plan: Patient has underlying diabetes (3) DM (diabetes mellitus) ICD Codes: E11.9 - DM (diabetes mellitus) Status: Acute Plan: Continue to monitor (4) Hypertension ICD Codes: I10 - Hypertension Status: Acute Plan: Continue to monitor (5) Atrial fibrillation ICD Codes: I48.91 - Atrial fibrillation Status: Acute Problem Qualifiers (1) DM (diabetes mellitus): Angi Bae MD Dec 26, 2016 11:57
[2016-12-26] MEDS ORDERED: FUROSEMIDE 40 MG/4 ML VIAL IV PUSH ONE (12:00)
[2016-12-26] MEDS: hydrALAZINE HCL 50 MG TAB PO SCH ×2 (13:06→21:15)
--- NOTE | 2016-12-26 14:16 | RADRPT ---
EXAM DATE/TIME: 12/26/2016 13:40 [facility] COMPARISON: CHEST SINGLE AP, December 20, 2016, 22:30. INDICATIONS : Shortness of breath; CHF. MEDICAL HISTORY : Cardiovascular disease. Hypertension. Congestive heart failure.Chronic obstructive pulmonary disease. Hypercholesterolemia. Heart attack, CHF, AFIB, Pneumonia, Coronary artery disease. SURGICAL HISTORY : Appendectomy. Coronary stents ENCOUNTER: Subsequent ACUITY: 1 week PAIN SCORE: 0/10 LOCATION: Bilateral chest FINDINGS: A single view of the chest demonstrates the lungs to be symmetrically aerated without evidence of mas s, infiltrate or effusion. Minimal atelectatic changes of the right hemidiaphragm. Heart size is bor derline prominent. Osseous structures are intact. CONCLUSION: 1. Heart size is borderline prominent but well compensated. 2. Minimal atelectatic changes above the right hemidiaphragm. Colt Padilla MD on December 26, 2016 at 14:13 Board Certified Radiologist. This report was verified electronically.
--- NOTE | 2016-12-26 19:22 | HHI.PR ---
Subjective Remarks Has some SOB. and had an acute episode of SOB this am. Feels better now, and On O2 2L. CT chest shows a 1 CM RUL nodule.Needs a PET scan. Objective Vital Signs Date Time Temp Pulse Resp B/P (MAP) Pulse Ox O2 Delivery O2 Flow Rate FiO2 12/26/16 18:00 76 12/26/16 17:00 74 12/26/16 16:00 74 12/26/16 15:30 97.6 83 19 127/77 (94) 100 12/26/16 15:00 83 12/26/16 14:00 76 12/26/16 13:00 70 12/26/16 12:07 97.4 83 19 120/70 (87) 100 12/26/16 12:00 82 12/26/16 11:00 84 12/26/16 10:00 68 12/26/16 09:00 68 12/26/16 08:00 72 12/26/16 07:56 99 Nasal Cannula 1.50 12/26/16 07:30 97.6 71 19 153/87 (109) 98 12/26/16 07:00 70 12/26/16 06:00 68 12/26/16 05:00 96 12/26/16 04:00 86 12/26/16 03:00 85 12/26/16 03:00 97.9 87 24 155/95 (115) 98 12/26/16 02:00 68 12/26/16 01:00 80 12/26/16 00:00 62 12/25/16 23:00 97.9 87 22 156/95 (115) 98 12/25/16 23:00 92 12/25/16 22:23 161/95 (117) 12/25/16 22:00 62 12/25/16 21:00 74 12/25/16 20:00 76 I/O 12/25/16 12/25/16 12/25/16 12/26/16 12/26/16 12/26/16 07:00 15:00 23:00 07:00 15:00 23:00 Intake Total 480 ml 2634 ml 480 ml Output Total 1675 ml 1350 ml 2500 ml Balance -1195 ml 1284 ml -2020 ml Intake Oral 480 ml 720 ml 480 ml IV Total 1914 ml Output Urine Total 1675 ml 1350 ml 2500 ml # Bowel Movements 2 Result Diagram: 12/26/16 0525 12/26/16 0525 Objective Remarks GENERAL: This is an obese elderly white male who is alert and anxious. HEAD, EYES, EARS, NOSE, THROAT: Head normocephalic. The pupils are reactive. Throat was clear. Nasal mucosa clear NECK: The neck is supple. No bruits. Mild venous distention. Trachea is midline. CHEST: Distant breath sounds. few wheezes scattered. No crackles. HEART: Heart sounds are regular. S1-S2. No murmur. No S3. ABDOMEN: Abdomen is soft and protuberant without masses. No organomegaly or tenderness. The bowel sounds are active. EXTREMITIES: Mild peripheral edema with diminished pulses. NEUROLOGIC: Reflexes are 1+. No gross motor deficits. Cranial nerves are grossly intact. RECTAL: Rectal exam is deferred. SKIN: No lesions. Assessment and Plan Assessment and Plan IMPRESSION: 1. COPD with emphysema and chronic bronchitis. 2. STEMI status post cardiac catheterization and stent placement. 3. Hypertension. 4. Diabetes mellitus. 5. Deconditioning. 6. Possible obstructive sleep apnea. 7. Right upper lobe Lung nodule Plan : 1. Cont Nebs qid , duoneb. 2. Check O2 sat on RA with 6 min walk test 3. Add Symbicort 160/4.5 mcg, 2puffs bid. 4. Will need PET CT as OP or CT chest in 3 mths. 5. Home O2 at 2 L 6. O2 prn 2 L. 7. Prednisone 10 mg bid Radha Ramirez MD Dec 26, 2016 19:22
[2016-12-26] MEDS: GABAPENTIN 400 MG CAP PO SCH (21:00)
[2016-12-26] MEDS: INSULIN HUMAN NPH 1,000 UNITS/10 ML VIAL SQ SCH (21:00)
[2016-12-26] MEDS: predniSONE 10 MG TAB PO SCH (21:15)
[2016-12-26] MEDS: ATORVASTATIN 40 MG TAB PO SCH (21:15)
[2016-12-27] VITALS (24 sets, daily range): BP systolic 117–147; BP diastolic 74–83; PULSE 71–90; RESP 19–20; TEMP 97.4–98.6; O2SAT 96–99
[2016-12-27] MEDS: GABAPENTIN 300 MG CAP PO SCH (06:30)
[2016-12-27] MEDS: HIGH DOSE INSULIN NOVOLOG SUPPLEMENTAL SCALE SQ SCH ×4 (06:30→20:53)
[2016-12-27] MEDS: hydrALAZINE HCL 50 MG TAB PO SCH ×3 (06:30→22:52)
[2016-12-27] MEDS: ISOSORBIDE MONONITRATE 60 MG TAB PO SCH (06:30)
[2016-12-27] MEDS: PANTOPRAZOLE SOD 20 MG DELAYED RELEASE TAB PO SCH (06:30)
[2016-12-27 06:40] LABS: AUTOMATED NEUTROPHIL # 13.1 TH/MM3 (1.8-7.7); HEMATOCRIT 32.1 % (39.0-51.0); LYMPHOCYTE # 0.3 TH/MM3 (1.0-4.8); MEAN CELL VOLUME 86.9 FL (80.0-100.0); MEAN CORPUSCULAR HEMOGLOBIN 28.1 PG (27.0-34.0); MEAN CORPUSCULAR HGB CONC 32.4 % (32.0-36.0); MONO % 10.9 % (0.0-8.0); NEUT % 87.1 % (16.0-70.0); PLATELET COUNT 189 TH/MM3 (150-450); RED CELL DISTRIBUTION WIDTH 15.6 % (11.6-17.2)
[2016-12-27 06:41] LABS: HEMO FLAGS AUTO DIFF
[2016-12-27 07:07] LABS: BICARBONATE 25.2 MEQ/L (21.0-32.0); POTASSIUM 4.8 MEQ/L (3.5-5.1)
--- NOTE | 2016-12-27 07:44 | PD.CARD.PN ---
Subjective Subjective Remarks had another shortness of breath attack (Kory Jacobs) Objective Vital Signs / I&O Vital Signs Date Time Temp Pulse Resp B/P (MAP) Pulse Ox O2 Delivery O2 Flow Rate FiO2 12/27/16 06:41 83 12/27/16 05:44 77 12/27/16 04:37 74 12/27/16 03:50 97.6 71 20 120/74 (89) 99 12/27/16 03:25 78 12/27/16 02:08 77 12/27/16 01:30 75 12/27/16 00:00 84 12/26/16 23:25 97.8 73 19 133/75 (94) 97 12/26/16 23:00 71 12/26/16 22:00 70 12/26/16 21:10 68 12/26/16 20:00 66 12/26/16 19:30 97.5 74 20 143/79 (100) 99 12/26/16 19:30 83 12/26/16 18:00 76 12/26/16 17:00 74 12/26/16 16:00 74 12/26/16 15:30 97.6 83 19 127/77 (94) 100 12/26/16 15:00 83 12/26/16 14:00 76 12/26/16 13:00 70 12/26/16 12:07 97.4 83 19 120/70 (87) 100 12/26/16 12:00 82 12/26/16 11:00 84 12/26/16 10:00 68 12/26/16 09:00 68 12/26/16 08:00 72 12/26/16 07:56 99 Nasal Cannula 1.50 I/O 12/26/16 12/26/16 12/26/16 12/27/16 12/27/16 12/27/16 07:00 15:00 23:00 07:00 15:00 23:00 Intake Total 480 ml 2626 ml 515 ml Output Total 2500 ml 2000 ml 1550 ml Balance -2020 ml 626 ml -1035 ml Intake Oral 480 ml 930 ml 240 ml IV Total 1696 ml 275 ml Output Urine Total 2500 ml 2000 ml 1550 ml # Bowel Movements 2 1 2 Physical Exam GENERAL: Well-nourished, well-developed patient in no apparent distress. NECK: No JVD. No carotid bruit. CARDIOVASCULAR: Regular rate and rhythm. S1/S2 no murmur, rub, or gallop. RESPIRATORY: No accessory muscle use. expiratory wheezing to auscultation. Breath sounds equal bilaterally. GASTROINTESTINAL: Abdomen soft, non-tender, nondistended. MUSCULOSKELETAL: Extremities without clubbing, cyanosis, or edema. Laboratory Laboratory Tests Test 12/27/16 06:25 White Blood Count 15.0 TH/MM3 Red Blood Count 3.70 MIL/MM3 Hemoglobin 10.4 GM/DL Hematocrit 32.1 % Mean Corpuscular Volume 86.9 FL Mean Corpuscular Hemoglobin 28.1 PG Mean Corpuscular Hemoglobin Concent 32.4 % Red Cell Distribution Width 15.6 % Platelet Count 189 TH/MM3 Mean Platelet Volume 8.5 FL Neutrophils (%) (Auto) 87.1 % Lymphocytes (%) (Auto) 2.0 % Monocytes (%) (Auto) 10.9 % Eosinophils (%) (Auto) 0.0 % Basophils (%) (Auto) 0.0 % Neutrophils # (Auto) 13.1 TH/MM3 Lymphocytes # (Auto) 0.3 TH/MM3 Monocytes # (Auto) 1.6 TH/MM3 Eosinophils # (Auto) 0.0 TH/MM3 Basophils # (Auto) 0.0 TH/MM3 CBC Comment AUTO DIFF Blood Urea Nitrogen 79 MG/DL Creatinine 2.42 MG/DL Random Glucose 125 MG/DL Calcium Level 8.0 MG/DL Sodium Level 140 MEQ/L Potassium Level 4.8 MEQ/L Chloride Level 107 MEQ/L Carbon Dioxide Level 25.2 MEQ/L Anion Gap 8 MEQ/L Estimat Glomerular Filtration Rate 26 ML/MIN (Kory Jacobs) Assessment and Plan Problem List: (1) NSTEMI (non-ST elevated myocardial infarction) ICD Codes: I21.4 - Non-ST elevation (NSTEMI) myocardial infarction (2) Shortness of breath dyspnea ICD Codes: R06.02 - Shortness of breath dyspnea Status: Acute (3) Acute renal failure ICD Codes: N17.9 - Acute renal failure Status: Acute Assessment and Plan CKD - Continue with slight improvement in creatinine CAD - continue present medical regimen (Kory Jacobs) Assessment and Plan doing better patient won't consider SNF DC planning when pulmonology ok with it clear from cardio standpoint for DC (Marin Frazier MD) Kory Jacobs Dec 27, 2016 07:44 Marin Frazier MD Dec 27, 2016 12:27
[2016-12-27] MEDS: TIOTROPIUM BROMIDE 18 MCG INH INH SCH (08:21)
[2016-12-27] MEDS: DOCUSATE SODIUM 50 MG/SENNA 8.6 MG TAB PO SCH ×2 (08:22→20:53)
[2016-12-27] MEDS: TICAGRELOR 90 MG TAB PO SCH ×2 (08:23→20:52)
[2016-12-27] MEDS: ASPIRIN 81 MG CHEW TAB PO SCH (08:23)
[2016-12-27] MEDS: predniSONE 10 MG TAB PO SCH ×2 (08:23→20:53)
[2016-12-27] MEDS: FUROSEMIDE 40 MG/4 ML VIAL IV PUSH SCH (08:26)
[2016-12-27 09:55] LABS: BANDS 2 % (0-6); MYELOCYTES 2 % (0-0); NEUTROPHIL # MANUAL DIFF 14.3 TH/MM3 (1.8-7.7); POLYS (SEG NEUTROPHILS) 91 % (16-70); WBC DIFF SAMPLE 100
[2016-12-27 09:56] LABS: OVALOCYTES 1+ (NORMAL); PLATELET ESTIMATE SMEAR NORMAL (NORMAL); PLATELET MORPHOLOGY NORMAL (NORMAL); SCAN/DIFF FINAL DIFF MANUAL
--- NOTE | 2016-12-27 12:22 | HHI.PR ---
Subjective Remarks Patient reported he had another episode of acute shortness of breath earlier this morning. States he could not walk to do the oxygen walk test. Objective Vitals Vital Signs Date Time Temp Pulse Resp B/P (MAP) Pulse Ox O2 Delivery O2 Flow Rate FiO2 12/27/16 12:11 74 12/27/16 11:00 85 12/27/16 11:00 97.6 88 20 133/77 (95) 97 12/27/16 10:22 79 12/27/16 09:18 89 12/27/16 08:05 89 12/27/16 07:00 97.4 90 20 136/79 (98) 99 12/27/16 07:00 76 12/27/16 06:41 83 12/27/16 05:44 77 12/27/16 04:37 74 12/27/16 03:50 97.6 71 20 120/74 (89) 99 12/27/16 03:25 78 12/27/16 02:08 77 12/27/16 01:30 75 12/27/16 00:00 84 12/26/16 23:25 97.8 73 19 133/75 (94) 97 12/26/16 23:00 71 12/26/16 22:00 70 12/26/16 21:10 68 12/26/16 20:00 66 12/26/16 19:30 97.5 74 20 143/79 (100) 99 12/26/16 19:30 83 12/26/16 18:00 76 12/26/16 17:00 74 12/26/16 16:00 74 12/26/16 15:30 97.6 83 19 127/77 (94) 100 12/26/16 15:00 83 12/26/16 14:00 76 12/26/16 13:00 70 I/O 12/26/16 12/26/16 12/26/16 12/27/16 12/27/16 12/27/16 07:00 15:00 23:00 07:00 15:00 23:00 Intake Total 480 ml 2626 ml 515 ml Output Total 2500 ml 2000 ml 1550 ml Balance -2020 ml 626 ml -1035 ml Intake Oral 480 ml 930 ml 240 ml IV Total 1696 ml 275 ml Output Urine Total 2500 ml 2000 ml 1550 ml # Bowel Movements 2 1 2 Result Diagram: 12/27/1662412/27/16624 Objective Remarks GENERAL: Morbidly obese elderly male CARDIOVASCULAR: Normal rate and regular rhythm without murmurs, gallops, or rubs. RESPIRATORY: Good respiratory efforts. Diminished breath sounds throughout. GASTROINTESTINAL: Abdomen soft, non-tender, non-distended. Normal active bowel sounds MUSCULOSKELETAL: Extremities without cyanosis NEURO: Alert & Oriented x4 to person, place, time, situation. Moves all ext x4 PSYCH: Calm. Procedures 12/20/16 cardiac catheterization A/P Problem List: (1) STEMI (ST elevation myocardial infarction) ICD Code: I21.3 - ST elevation (STEMI) myocardial infarction of unspecified site Status: Acute (2) DM (diabetes mellitus) ICD Code: E11.9 - DM (diabetes mellitus) Status: Acute (3) Chronic kidney disease, stage III (moderate) ICD Code: N18.3 - Chronic kidney disease, stage III (moderate) Status: Acute (4) Chronic obstructive pulmonary disease ICD Code: J44.9 - Chronic obstructive pulmonary disease Status: Acute (5) Atrial fibrillation ICD Code: I48.91 - Atrial fibrillation Status: Acute (6) Hypertension ICD Code: I10 - Hypertension Status: Acute (7) Hyperlipidemia ICD Code: E78.5 - Hyperlipidemia Status: Acute Assessment and Plan 86-year-old male with: STEMI: Status post cardiac catheterization with stent placement. Management per cardiology. Continue aspirin, statin, beta jessica, Brilinta. Patient cleared from cardiology standpoint. Acute kidney injury superimposed on chronic kidney disease: Possible contrast nephropathy. Nephrology following. Renal ultrasound consistent with medical renal disease. Renal function essentially stable today. IV Lasix per nephrology today. Hypertension: Continue antihypertensive medications. Monitor blood pressure. Questionable history of CHF: Echocardiogram shows hyperdynamic left ventricular systolic function with EF 65-70%. Lasix on hold. We'll be cautious with IV fluids. COPD: Continue supplemental oxygen. Bronchodilators. Appreciate pulmonology recommendations. -Transition to oral prednisone today. Diabetes mellitus: Monitor Accu-Cheks and cover with sliding scale insulin. DVT prophylaxis: Patient is on Brilinta. Problem Qualifiers (1) STEMI (ST elevation myocardial infarction): Qualified Codes: I21.3 - ST elevation (STEMI) myocardial infarction of unspecified site (2) DM (diabetes mellitus): Alba Rivera MD Dec 27, 2016 12:22
--- NOTE | 2016-12-27 17:49 | HHI.NPPN ---
Subjective History of Present Illness 86 year old with CKD cr 1.9 had heart cath Cr went up now declined Additional Remarks tired Review of Systems General Constitutional: Fatigue Cardiovascular Cardiac: ARREAGA Objective Data Data 12/27/16 12/28/16 19:00 07:00 Intake Total 730 ml Output Total 2000 ml Balance -1270 ml Intake Oral 600 ml IV Total 130 ml Output Urine Total 2000 ml # Bowel Movements 1 Vital Signs Date Time Temp Pulse Resp B/P (MAP) Pulse Ox O2 Delivery O2 Flow Rate FiO2 12/27/16 17:13 85 12/27/16 16:00 86 12/27/16 15:00 98.6 80 20 147/83 (104) 99 12/27/16 15:00 76 12/27/16 14:00 80 12/27/16 13:24 85 12/27/16 12:11 74 12/27/16 11:00 85 12/27/16 11:00 97.6 88 20 133/77 (95) 97 12/27/16 10:22 79 12/27/16 09:18 89 12/27/16 08:05 89 12/27/16 07:00 97.4 90 20 136/79 (98) 99 12/27/16 07:00 76 12/27/16 06:41 83 12/27/16 05:44 77 12/27/16 04:37 74 12/27/16 03:50 97.6 71 20 120/74 (89) 99 12/27/16 03:25 78 12/27/16 02:08 77 12/27/16 01:30 75 12/27/16 00:00 84 12/26/16 23:25 97.8 73 19 133/75 (94) 97 12/26/16 23:00 71 12/26/16 22:00 70 12/26/16 21:10 68 12/26/16 20:00 66 12/26/16 19:30 97.5 74 20 143/79 (100) 99 12/26/16 19:30 83 12/26/16 18:00 76 -: 12/27/16 0625 12/27/16 0625 Physical Exam Eyes Eye Exam: Pupils Equal Neck Neck Exam: Neck Supple Pulmonary Resp Exam: Decreased Bases Cardiology CV Exam: Regular Gastrointestinal/Abdomen GI Exam: Soft, Non-Tender, Bowel Sounds Present Extremeties Extremities Exam: No Edema Neurologic Neuro Exam: Alert, Awake Assessment/Plan Problem List: (1) Acute renal failure ICD Codes: N17.9 - Acute renal failure Status: Acute Plan: Patient has declined cr to 2.4 range given Lasix good UOP He has exposure to recent dye Avoid nephrotoxins Follow BMP (2) Chronic kidney disease, stage III (moderate) ICD Codes: N18.3 - Chronic kidney disease, stage III (moderate) Status: Acute Plan: Patient has underlying diabetes (3) DM (diabetes mellitus) ICD Codes: E11.9 - DM (diabetes mellitus) Status: Acute Plan: Continue to monitor (4) Hypertension ICD Codes: I10 - Hypertension Status: Acute Plan: Continue to monitor (5) Atrial fibrillation ICD Codes: I48.91 - Atrial fibrillation Status: Acute Problem Qualifiers (1) DM (diabetes mellitus): Angi Bae MD Dec 27, 2016 17:49
--- NOTE | 2016-12-27 18:39 | HHI.PR ---
Subjective Remarks Has some SOB. and on o2 [address] chest shows a 1 CM RUL nodule.Needs a PET scan. Will need a Sleep test as OP Objective Vital Signs Date Time Temp Pulse Resp B/P (MAP) Pulse Ox O2 Delivery O2 Flow Rate FiO2 12/27/16 18:11 75 12/27/16 17:13 85 12/27/16 16:00 86 12/27/16 15:00 98.6 80 20 147/83 (104) 99 12/27/16 15:00 76 12/27/16 14:00 80 12/27/16 13:24 85 12/27/16 12:11 74 12/27/16 11:00 85 12/27/16 11:00 97.6 88 20 133/77 (95) 97 12/27/16 10:22 79 12/27/16 09:18 89 12/27/16 08:05 89 12/27/16 07:00 97.4 90 20 136/79 (98) 99 12/27/16 07:00 76 12/27/16 06:41 83 12/27/16 05:44 77 12/27/16 04:37 74 12/27/16 03:50 97.6 71 20 120/74 (89) 99 12/27/16 03:25 78 12/27/16 02:08 77 12/27/16 01:30 75 12/27/16 00:00 84 12/26/16 23:25 97.8 73 19 133/75 (94) 97 12/26/16 23:00 71 12/26/16 22:00 70 12/26/16 21:10 68 12/26/16 20:00 66 12/26/16 19:30 97.5 74 20 143/79 (100) 99 12/26/16 19:30 83 I/O 12/26/16 12/26/16 12/26/16 12/27/16 12/27/16 12/27/16 07:00 15:00 23:00 07:00 15:00 23:00 Intake Total 480 ml 2626 ml 515 ml 730 ml Output Total 2500 ml 2000 ml 1550 ml 2000 ml Balance -2020 ml 626 ml -1035 ml -1270 ml Intake Oral 480 ml 930 ml 240 ml 600 ml IV Total 1696 ml 275 ml 130 ml Output Urine Total 2500 ml 2000 ml 1550 ml 2000 ml # Bowel Movements 2 1 2 1 Result Diagram: 12/27/1662412/27/16624 Objective Remarks GENERAL: This is an obese elderly white male who is alert and anxious. HEAD, EYES, EARS, NOSE, THROAT: Head normocephalic. The pupils are reactive. Throat was clear. Nasal mucosa clear NECK: The neck is supple. No bruits. No venous distention. Trachea is midline. CHEST: Distant breath sounds. few wheezes scattered. No crackles. HEART: Heart sounds are regular. S1-S2. No murmur. No S3. ABDOMEN: Abdomen is soft and protuberant without masses. No organomegaly or tenderness. The bowel sounds are active. EXTREMITIES: Mild peripheral edema with diminished pulses. NEUROLOGIC: Reflexes are 1+. No gross motor deficits. Cranial nerves are grossly intact. RECTAL: Rectal exam is deferred. SKIN: No lesions. Assessment and Plan Assessment and Plan IMPRESSION: 1. COPD with emphysema and chronic bronchitis. 2. STEMI status post cardiac catheterization and stent placement. 3. Hypertension. 4. Diabetes mellitus. 5. Deconditioning. 6. Possible obstructive sleep apnea. 7. Right upper lobe Lung nodule Plan : 1. Cont Nebs qid , duoneb. 2. Check O2 sat on RA with 6 min walk test 3. Add Symbicort 160/4.5 mcg, 2puffs bid. 4. Will need PET CT as OP or CT chest in 3 mths. 5. Home O2 at 2 L 6. O2 prn 2 L. 7. Prednisone 10 mg bid 8. Will have sleep study as OP Radha Ramirez MD Dec 27, 2016 18:39
[2016-12-27] MEDS: GABAPENTIN 400 MG CAP PO SCH (20:53)
[2016-12-27] MEDS: ATORVASTATIN 40 MG TAB PO SCH (20:53)
[2016-12-27] MEDS: INSULIN HUMAN NPH 1,000 UNITS/10 ML VIAL SQ SCH (20:54)
[2016-12-28] VITALS (11 sets, daily range): BP systolic 143–160; BP diastolic 77–94; PULSE 70–105; RESP 18–19; TEMP 98–98.8; O2SAT 95–98
[2016-12-28] MEDS: hydrALAZINE HCL 50 MG TAB PO SCH ×3 (06:54→22:00)
[2016-12-28] MEDS: GABAPENTIN 300 MG CAP PO SCH (06:54)
[2016-12-28] MEDS: ISOSORBIDE MONONITRATE 60 MG TAB PO SCH (06:54)
[2016-12-28] MEDS: PANTOPRAZOLE SOD 20 MG DELAYED RELEASE TAB PO SCH (06:57)
[2016-12-28] MEDS: HIGH DOSE INSULIN NOVOLOG SUPPLEMENTAL SCALE SQ SCH ×4 (06:57→21:00)
[2016-12-28] MEDS: DOCUSATE SODIUM 50 MG/SENNA 8.6 MG TAB PO SCH ×2 (07:31→21:00)
[2016-12-28] MEDS: predniSONE 10 MG TAB PO SCH ×2 (07:31→22:24)
[2016-12-28] MEDS: ASPIRIN 81 MG CHEW TAB PO SCH (07:31)
[2016-12-28] MEDS: FUROSEMIDE 40 MG/4 ML VIAL IV PUSH SCH (07:32)
[2016-12-28] MEDS: TIOTROPIUM BROMIDE 18 MCG INH INH SCH (07:32)
[2016-12-28] MEDS: TICAGRELOR 90 MG TAB PO SCH ×2 (07:32→22:24)
[2016-12-28 08:00] LABS: BICARBONATE 23.7 MEQ/L (21.0-32.0); POTASSIUM 4.4 MEQ/L (3.5-5.1)
--- NOTE | 2016-12-28 08:26 | PD.CARD.PN ---
Objective Vital Signs / I&O Vital Signs Date Time Temp Pulse Resp B/P (MAP) Pulse Ox O2 Delivery O2 Flow Rate FiO2 12/28/16 03:25 70 12/28/16 03:20 98.0 96 19 154/80 (104) 97 12/27/16 23:45 97.4 81 20 142/80 (100) 98 12/27/16 22:33 87 12/27/16 20:19 75 12/27/16 19:10 97.6 85 19 117/77 (90) 96 12/27/16 19:10 80 12/27/16 18:11 75 12/27/16 17:13 85 12/27/16 16:00 86 12/27/16 15:00 98.6 80 20 147/83 (104) 99 12/27/16 15:00 76 12/27/16 14:00 80 12/27/16 13:24 85 12/27/16 12:11 74 12/27/16 11:00 85 12/27/16 11:00 97.6 88 20 133/77 (95) 97 12/27/16 10:22 79 12/27/16 09:18 89 I/O 12/27/16 12/27/16 12/27/16 12/28/16 12/28/16 12/28/16 07:00 15:00 23:00 07:00 15:00 23:00 Intake Total 515 ml 730 ml 480 ml Output Total 1550 ml 2000 ml 925 ml Balance -1035 ml -1270 ml -445 ml Intake Oral 240 ml 600 ml 480 ml IV Total 275 ml 130 ml Output Urine Total 1550 ml 2000 ml 925 ml # Bowel Movements 2 1 2 Physical Exam GENERAL: SKIN: Warm and dry. HEAD: Normocephalic. EYES: No scleral icterus. No injection or drainage. NECK: Supple, trachea midline. No JVD or lymphadenopathy. CARDIOVASCULAR: Regular rate and rhythm without murmurs, gallops, or rubs. RESPIRATORY: Breath sounds equal bilaterally. No accessory muscle use. GASTROINTESTINAL: Abdomen soft, non-tender, nondistended. MUSCULOSKELETAL: No cyanosis, or edema. BACK: Nontender without obvious deformity. No CVA tenderness. Laboratory Laboratory Tests Test 12/28/16 06:17 Blood Urea Nitrogen 73 MG/DL Creatinine 2.20 MG/DL Random Glucose 178 MG/DL Calcium Level 7.8 MG/DL Sodium Level 139 MEQ/L Potassium Level 4.4 MEQ/L Chloride Level 106 MEQ/L Carbon Dioxide Level 23.7 MEQ/L Anion Gap 9 MEQ/L Estimat Glomerular Filtration Rate 29 ML/MIN Assessment and Plan Problem List: (1) NSTEMI (non-ST elevated myocardial infarction) ICD Codes: I21.4 - Non-ST elevation (NSTEMI) myocardial infarction (2) Shortness of breath dyspnea ICD Codes: R06.02 - Shortness of breath dyspnea Status: Acute (3) Acute renal failure ICD Codes: N17.9 - Acute renal failure Status: Acute Assessment and Plan doing better patient won't consider SNF DC planning when pulmonology ok with it clear from cardio standpoint for DC cont brillinta + loose stools Marin Frazier MD Dec 28, 2016 08:26
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
--- NOTE | 2016-12-28 10:47 | HHI.NPPN ---
Subjective History of Present Illness 86 year old with CKD cr 1.9 had heart cath Cr went up now declined Additional Remarks tired Review of Systems General Constitutional: Fatigue Cardiovascular Cardiac: ARREAGA Objective Data Data Vital Signs Date Time Temp Pulse Resp B/P (MAP) Pulse Ox O2 Delivery O2 Flow Rate FiO2 12/28/16 07:00 98.0 102 19 160/94 (116) 98 12/28/16 03:25 70 12/28/16 03:20 98.0 96 19 154/80 (104) 97 12/27/16 23:45 97.4 81 20 142/80 (100) 98 12/27/16 22:33 87 12/27/16 20:19 75 12/27/16 19:10 97.6 85 19 117/77 (90) 96 12/27/16 19:10 80 12/27/16 18:11 75 12/27/16 17:13 85 12/27/16 16:00 86 12/27/16 15:00 98.6 80 20 147/83 (104) 99 12/27/16 15:00 76 12/27/16 14:00 80 12/27/16 13:24 85 12/27/16 12:11 74 12/27/16 11:00 85 12/27/16 11:00 97.6 88 20 133/77 (95) 97 -: 12/27/16 0625 12/28/16 0617 Physical Exam Eyes Eye Exam: Pupils Equal Neck Neck Exam: Neck Supple Pulmonary Resp Exam: Decreased Bases Cardiology CV Exam: Regular Gastrointestinal/Abdomen GI Exam: Soft, Non-Tender, Bowel Sounds Present Extremeties Extremities Exam: No Edema Neurologic Neuro Exam: Alert, Awake Assessment/Plan Problem List: (1) Acute renal failure ICD Codes: N17.9 - Acute renal failure Status: Acute Plan: Patient has declined cr to 2.2 range given Lasix good UOP change to PO from tomorrow He has exposure to recent dye Avoid nephrotoxins Follow BMP nephrology to follow as needed bases (2) Chronic kidney disease, stage III (moderate) ICD Codes: N18.3 - Chronic kidney disease, stage III (moderate) Status: Acute Plan: Patient has underlying diabetes (3) DM (diabetes mellitus) ICD Codes: E11.9 - DM (diabetes mellitus) Status: Acute Plan: Continue to monitor (4) Hypertension ICD Codes: I10 - Hypertension Status: Acute Plan: Continue to monitor (5) Atrial fibrillation ICD Codes: I48.91 - Atrial fibrillation Status: Acute Problem Qualifiers (1) DM (diabetes mellitus): Angi Bae MD Dec 28, 2016 10:47
--- NOTE | 2016-12-28 13:37 | HHI.PR ---
Subjective Remarks Has less SOB. and on o2 2 L. Able to walk with help. CT chest shows a 1 CM RUL nodule.Needs a PET scan. Will need a Sleep test as OP Objective Vital Signs Date Time Temp Pulse Resp B/P (MAP) Pulse Ox O2 Delivery O2 Flow Rate FiO2 12/28/16 12:06 97 Nasal Cannula 2.00 12/28/16 11:00 98.8 105 19 147/77 (100) 95 12/28/16 11:00 92 12/28/16 07:00 98.0 102 19 160/94 (116) 98 12/28/16 03:25 70 12/28/16 03:20 98.0 96 19 154/80 (104) 97 12/27/16 23:45 97.4 81 20 142/80 (100) 98 12/27/16 22:33 87 12/27/16 20:19 75 12/27/16 19:10 97.6 85 19 117/77 (90) 96 12/27/16 19:10 80 12/27/16 18:11 75 12/27/16 17:13 85 12/27/16 16:00 86 12/27/16 15:00 98.6 80 20 147/83 (104) 99 12/27/16 15:00 76 12/27/16 14:00 80 I/O 12/27/16 12/27/16 12/27/16 12/28/16 12/28/16 12/28/16 07:00 15:00 23:00 07:00 15:00 23:00 Intake Total 515 ml 730 ml 480 ml Output Total 1550 ml 2000 ml 925 ml Balance -1035 ml -1270 ml -445 ml Intake Oral 240 ml 600 ml 480 ml IV Total 275 ml 130 ml Output Urine Total 1550 ml 2000 ml 925 ml # Bowel Movements 2 1 2 Result Diagram: 12/27/16 0625 12/28/16 0617 Objective Remarks GENERAL: This is an obese elderly white male who is alert and Oriented HEAD, EYES, EARS, NOSE, THROAT: Head normocephalic. The pupils are reactive. Throat was clear. Nasal mucosa clear NECK: The neck is supple. No bruits. No venous distention. Trachea is midline. CHEST: Distant breath sounds. few wheezes scattered. No crackles. HEART: Heart sounds are regular. S1-S2. No murmur. No S3. ABDOMEN: Abdomen is soft and protuberant without masses. No organomegaly or tenderness. The bowel sounds are active. EXTREMITIES: Mild peripheral edema with diminished pulses. NEUROLOGIC: Reflexes are 1+. No gross motor deficits. Cranial nerves are grossly intact. RECTAL: Rectal exam is deferred. SKIN: No lesions. Assessment and Plan Assessment and Plan IMPRESSION: 1. COPD with emphysema and chronic bronchitis. 2. STEMI status post cardiac catheterization and stent placement. 3. Hypertension. 4. Diabetes mellitus. 5. Deconditioning. 6. Possible obstructive sleep apnea. 7. Right upper lobe Lung nodule Plan : 1. Cont Nebs qid , duoneb. 2. Home O2 at 2 l at HS and PRN daytime 3. Symbicort 160/4.5 mcg, 2puffs bid. 4. Will need PET CT as OP or CT chest in 3 mths. 5. BMP CBC 6. Will have sleep study as OP 7. Prednisone 10 mg bid 8. PT and OT. Radha Ramirez MD Dec 28, 2016 13:37
[2016-12-28] MEDS: INSULIN HUMAN NPH 1,000 UNITS/10 ML VIAL SQ SCH (21:00)
[2016-12-28] MEDS: ATORVASTATIN 40 MG TAB PO SCH (22:24)
[2016-12-28] MEDS: GABAPENTIN 400 MG CAP PO SCH (22:24)
[2016-12-28] MEDS: RESP: ALBUTEROL 2.5 MG/IPRATROPIUM 0.5 MG NEB (PRN) NEB (22:26)
[2016-12-28] MEDS: guaiFENesin SOLUTION 200 MG/10 ML CUP PO PRN (22:51)
[2016-12-29] VITALS (23 sets, daily range): BP systolic 116–158; BP diastolic 60–103; PULSE 70–112; RESP 16–20; TEMP 97.4–98.3; O2SAT 95–99
[2016-12-29] MEDS: HIGH DOSE INSULIN NOVOLOG SUPPLEMENTAL SCALE SQ SCH ×4 (05:43→21:00)
[2016-12-29] MEDS: hydrALAZINE HCL 50 MG TAB PO SCH ×3 (05:43→21:02)
[2016-12-29] MEDS: GABAPENTIN 300 MG CAP PO SCH (05:43)
[2016-12-29] MEDS: ISOSORBIDE MONONITRATE 60 MG TAB PO SCH (05:46)
[2016-12-29] MEDS: PANTOPRAZOLE SOD 20 MG DELAYED RELEASE TAB PO SCH (05:46)
[2016-12-29] MEDS: DOCUSATE SODIUM 50 MG/SENNA 8.6 MG TAB PO SCH ×2 (09:00→21:00)
[2016-12-29] MEDS: predniSONE 10 MG TAB PO SCH ×2 (09:07→21:02)
[2016-12-29] MEDS: ASPIRIN 81 MG CHEW TAB PO SCH (09:07)
[2016-12-29] MEDS: TICAGRELOR 90 MG TAB PO SCH ×2 (09:07→21:01)
[2016-12-29] MEDS: FUROSEMIDE 40 MG TAB PO SCH (09:08)
[2016-12-29] MEDS: SODIUM CHLORIDE 0.9% FLUSH 10 ML FLUSH IVF PRN (09:08)
[2016-12-29] MEDS: TIOTROPIUM BROMIDE 18 MCG INH INH SCH (09:08)
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
[2016-12-29] MEDS: INSULIN HUMAN NPH 1,000 UNITS/10 ML VIAL SQ SCH (21:00)
[2016-12-29] MEDS: ATORVASTATIN 40 MG TAB PO SCH (21:02)
[2016-12-29] MEDS: GABAPENTIN 400 MG CAP PO SCH (21:02)
[2016-12-30] VITALS (26 sets, daily range): BP systolic 113–151; BP diastolic 63–91; PULSE 71–120; RESP 16–18; TEMP 97.5–98.5; O2SAT 93–98
[2016-12-30] MEDS: hydrALAZINE HCL 50 MG TAB PO SCH ×3 (06:25→21:12)
[2016-12-30] MEDS: ISOSORBIDE MONONITRATE 60 MG TAB PO SCH (06:25)
[2016-12-30] MEDS: GABAPENTIN 300 MG CAP PO SCH (06:25)
[2016-12-30] MEDS: PANTOPRAZOLE SOD 20 MG DELAYED RELEASE TAB PO SCH (06:27)
[2016-12-30] MEDS: HIGH DOSE INSULIN NOVOLOG SUPPLEMENTAL SCALE SQ SCH ×4 (06:33→21:00)
[2016-12-30] MEDS: FUROSEMIDE 40 MG TAB PO SCH (08:53)
[2016-12-30] MEDS: DOCUSATE SODIUM 50 MG/SENNA 8.6 MG TAB PO SCH ×2 (08:53→21:12)
[2016-12-30] MEDS: predniSONE 10 MG TAB PO SCH ×2 (08:53→21:12)
[2016-12-30] MEDS: TICAGRELOR 90 MG TAB PO SCH ×2 (08:54→21:11)
[2016-12-30] MEDS: SODIUM CHLORIDE 0.9% FLUSH 10 ML FLUSH IVF PRN (08:56)
[2016-12-30] MEDS: ASPIRIN 81 MG CHEW TAB PO SCH (08:56)
[2016-12-30] MEDS: TIOTROPIUM BROMIDE 18 MCG INH INH SCH (10:42)
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
[2016-12-30] MEDS: ATORVASTATIN 40 MG TAB PO SCH (21:11)
[2016-12-30] MEDS: GABAPENTIN 400 MG CAP PO SCH (21:11)
[2016-12-30] MEDS: INSULIN HUMAN NPH 1,000 UNITS/10 ML VIAL SQ SCH (21:14)
[2016-12-30] MEDS: ACETAMINOPHEN 325 MG TAB PO PRN (23:46)
[2016-12-31] VITALS (28 sets, daily range): BP systolic 124–153; BP diastolic 70–87; PULSE 70–100; RESP 16–18; TEMP 97.6–98.3; O2SAT 95–98
[2016-12-31] MEDS: HIGH DOSE INSULIN NOVOLOG SUPPLEMENTAL SCALE SQ SCH ×4 (06:39→21:15)
[2016-12-31] MEDS: hydrALAZINE HCL 50 MG TAB PO SCH ×3 (06:39→21:17)
[2016-12-31] MEDS: ISOSORBIDE MONONITRATE 60 MG TAB PO SCH (06:39)
[2016-12-31] MEDS: PANTOPRAZOLE SOD 20 MG DELAYED RELEASE TAB PO SCH (06:39)
[2016-12-31] MEDS: GABAPENTIN 300 MG CAP PO SCH (06:39)
[2016-12-31] MEDS: TIOTROPIUM BROMIDE 18 MCG INH INH SCH (09:12)
[2016-12-31] MEDS: DOCUSATE SODIUM 50 MG/SENNA 8.6 MG TAB PO SCH ×2 (09:14→21:17)
[2016-12-31] MEDS: TICAGRELOR 90 MG TAB PO SCH ×2 (09:14→21:17)
[2016-12-31] MEDS: ASPIRIN 81 MG CHEW TAB PO SCH (09:14)
[2016-12-31] MEDS: FUROSEMIDE 40 MG TAB PO SCH (09:14)
[2016-12-31] MEDS: ACETAMINOPHEN 325 MG TAB PO PRN (09:15)
[2016-12-31] MEDS: predniSONE 10 MG TAB PO SCH (09:15)
[2016-12-31] MEDS: SODIUM CHLORIDE 0.9% FLUSH 10 ML FLUSH IVF PRN (09:16)
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
--- NOTE | 2016-12-31 16:02 | HHI.PR ---
Subjective Remarks Has SOB with activity. and on o2 2 L. Able to walk with help. Anxious about going home CT chest shows a 1 CM RUL nodule.Needs a PET scan. Will need a Sleep test as OP. Will Do a 6 min walk test to see if he needs home O2 Objective Vital Signs Date Time Temp Pulse Resp B/P (MAP) Pulse Ox O2 Delivery O2 Flow Rate FiO2 12/31/16 15:08 97.9 100 17 141/84 (103) 95 12/31/16 15:00 89 12/31/16 14:00 92 12/31/16 13:00 74 12/31/16 12:00 79 12/31/16 11:56 97.8 74 18 127/77 (94) 97 12/31/16 11:00 78 12/31/16 11:00 18 12/31/16 10:57 98 12/31/16 10:00 84 12/31/16 09:00 90 12/31/16 08:00 76 12/31/16 07:00 97.6 87 17 133/76 (95) 97 12/31/16 07:00 76 12/31/16 06:00 92 12/31/16 05:00 79 12/31/16 04:00 74 12/31/16 03:30 98.3 75 16 124/70 (88) 97 12/31/16 03:00 79 12/31/16 02:00 76 12/31/16 01:00 77 12/31/16 00:00 97.8 88 18 153/87 (109) 97 12/31/16 00:00 94 12/30/16 23:00 85 12/30/16 22:00 84 12/30/16 21:46 21 12/30/16 21:00 80 12/30/16 20:00 97.9 94 18 113/63 (80) 96 12/30/16 20:00 94 12/30/16 19:00 108 12/30/16 18:00 86 12/30/16 17:00 92 I/O 12/30/16 12/30/16 12/30/16 12/31/16 12/31/16 12/31/16 07:00 15:00 23:00 07:00 15:00 23:00 Intake Total 480 ml 480 ml 480 ml Output Total 1250 ml 700 ml 1300 ml Balance -770 ml -220 ml -820 ml Intake Oral 480 ml 480 ml 480 ml Output Urine Total 1250 ml 700 ml 1300 ml Stool Total 0 ml # Bowel Movements 0 1 Result Diagram: 12/27/1662412/28/16616 Objective Remarks GENERAL: This is an obese elderly white male who is alert and Oriented HEAD, EYES, EARS, NOSE, THROAT: Head normocephalic. The pupils are reactive. Throat was clear. Nasal mucosa clear NECK: The neck is supple. No bruits. No venous distention. Trachea is midline. CHEST: Distant breath sounds. few wheezes scattered. No crackles. HEART: Heart sounds are regular. S1-S2. No murmur. No S3. ABDOMEN: Abdomen is soft and protuberant without masses. No organomegaly or tenderness. The bowel sounds are active. EXTREMITIES: Mild peripheral edema with diminished pulses. NEUROLOGIC: Reflexes are 1+. No gross motor deficits. Cranial nerves are grossly intact. RECTAL: Rectal exam is deferred. SKIN: No lesions. Assessment and Plan Assessment and Plan IMPRESSION: 1. COPD with emphysema and chronic bronchitis. 2. STEMI status post cardiac catheterization and stent placement. 3. Hypertension. 4. Diabetes mellitus. 5. Deconditioning. 6. Possible obstructive sleep apnea. 7. Right upper lobe Lung nodule Plan : 1. Cont Nebs qid , duoneb. 2. Home O2 at 2 l at HS and PRN daytime 3. Symbicort 160/4.5 mcg, 2puffs bid. 4. Will need PET CT as OP or CT chest in 3 mths. 5. 6 min walk test this week 6. Will have sleep study as OP 7. Prednisone 15 mg daily and taper off in 2 weeks 8. PT and OT. 9. OK to discharge Radha Ramirez MD Dec 31, 2016 16:02
[2016-12-31] MEDS ORDERED: PILL SPLITTER OTHER PRN (16:45)
[2016-12-31] MEDS: SODIUM CHLORIDE 0.65% NASAL SPRAY 45 ML BTL EACH NARE PRN ×2 (17:15→21:52)
[2016-12-31] MEDS: INSULIN HUMAN NPH 1,000 UNITS/10 ML VIAL SQ SCH (21:16)
[2016-12-31] MEDS: ATORVASTATIN 40 MG TAB PO SCH (21:17)
[2016-12-31] MEDS: GABAPENTIN 400 MG CAP PO SCH (21:17)
[2016-12-31] MEDS: MAGNESIUM HYDROXIDE SUSP 30 ML CUP PO PRN (21:18)
[2017-01-01] VITALS (11 sets, daily range): BP systolic 135–152; BP diastolic 81–86; PULSE 67–92; RESP 16; TEMP 97.5–98.3; O2SAT 94–98
[2017-01-01] MEDS: PANTOPRAZOLE SOD 20 MG DELAYED RELEASE TAB PO SCH (06:29)
[2017-01-01] MEDS: GABAPENTIN 300 MG CAP PO SCH (06:29)
[2017-01-01] MEDS: ISOSORBIDE MONONITRATE 60 MG TAB PO SCH (06:29)
[2017-01-01] MEDS: hydrALAZINE HCL 50 MG TAB PO SCH ×2 (06:29→15:13)
[2017-01-01] MEDS: HIGH DOSE INSULIN NOVOLOG SUPPLEMENTAL SCALE SQ SCH ×2 (06:30→11:00)
[2017-01-01 06:56] LABS: HEMATOCRIT 32.7 % (39.0-51.0); MEAN CELL VOLUME 86.9 FL (80.0-100.0); MEAN CORPUSCULAR HEMOGLOBIN 28.1 PG (27.0-34.0); MEAN CORPUSCULAR HGB CONC 32.3 % (32.0-36.0); PLATELET COUNT 198 TH/MM3 (150-450); RED BLOOD COUNT 3.76 MIL/MM3 (4.50-5.90); RED CELL DISTRIBUTION WIDTH 15.7 % (11.6-17.2); REVIEW FLAG FINAL; WHITE BLOOD COUNT 17.1 TH/MM3 (4.0-11.0)
[2017-01-01 07:08] LABS: ALT (GPT) 49 U/L (12-78); ANION GAP 6 MEQ/L (5-15); AST (GOT) 32 U/L (15-37); BICARBONATE 29.7 MEQ/L (21.0-32.0); BLOOD UREA NITROGEN 61 MG/DL (7-18); CHLORIDE 106 MEQ/L (98-107); GLOMERULAR FILTRATION RATE 34 ML/MIN (>89); POTASSIUM 3.7 MEQ/L (3.5-5.1); SODIUM (NA) 142 MEQ/L (136-145)
[2017-01-01 07:11] LABS: ALKALINE PHOSPHATASE 118 U/L (45-117); TOTAL BILIRUBIN ADULT 0.3 MG/DL (0.2-1.0)
[2017-01-01] MEDS ORDERED: predniSONE 10 MG TAB PO SCH (09:00)
[2017-01-01] MEDS: TICAGRELOR 90 MG TAB PO SCH (09:50)
[2017-01-01] MEDS: ASPIRIN 81 MG CHEW TAB PO SCH (09:50)
[2017-01-01] MEDS: DOCUSATE SODIUM 50 MG/SENNA 8.6 MG TAB PO SCH (09:51)
[2017-01-01] MEDS: FUROSEMIDE 40 MG TAB PO SCH (09:52)
[2017-01-01] MEDS: TIOTROPIUM BROMIDE 18 MCG INH INH SCH (10:00)
--- NOTE | 2017-01-01 11:59 | RSPPFT ---
DATE OF PROCEDURE: 12/25/16 COMMENTS: Spirometry demonstrates an FEV1 of 0.6 at 19% of predicted, FVC of 1.2 at 30%, FEV1/FVC ratio is 54%. The FEF 25-75 is 6% of predicted. Post-bronchodilator study demonstrated minimal improvements. Lung volumes were not completed. Flow volume loops suggest an obstructive pattern. IMPRESSION: 1. Moderately severe obstructive disease. 2. Mild response to use of bronchodilator indicating some reversibility.
[2017-01-01] MEDS ORDERED: WALKER WHEELS/F1 MIS (12:36)
[2017-01-01] MEDS ORDERED: FURO40TA PO (12:49)
[2017-01-01] MEDS ORDERED: SYMB160A INH (12:49)
[2017-01-01] MEDS ORDERED: HYDR-3800 PO (12:49)
[2017-01-01] MEDS ORDERED: LACTTAB8 PO (12:49)
[2017-01-01] MEDS ORDERED: PRED10 PO (12:49)
[2017-01-01] MEDS ORDERED: ATOR40TA16 PO (12:58)
[2017-01-01] MEDS ORDERED: ASPI81CH25 PO (12:58)
[2017-01-01] MEDS ORDERED: BRIL90TA PO (12:58)
--- NOTE | 2017-01-01 13:02 | HHI.FF ---
Face to Face Verification Diagnosis: (1) Congestive heart failure (2) Acute renal failure (3) Chronic kidney disease, stage III (moderate) (4) STEMI (ST elevation myocardial infarction) (5) COPD exacerbation (6) Hyperlipidemia (7) Hypertension (8) Atrial fibrillation Physical Therapy Order: Evaluate and Treat, Improve ambulation, Strength and gait training Home Health Nursing Order: Nursing assessment with vital signs Cortez catheter maintenance I have seen patient Dhruv Kinney on 01/01/17. My clinical findings support the need for the requested home health care services because: Patient has SOB Ltd mobility - disease progression Patient has SOB Limited ability to care for self High risk of falls I certify that my clinical findings support that this patient is homebound because: Hx COPD- exertion dyspnea/weakness Unsteady gait/balance Unsafe to leave home unassisted Unable to use public transportation Shantal Lam Jan 01, 2017 13:02
--- NOTE | 2017-01-01 13:05 | HHI.DCPOC ---
Discharge Care Plan Diagnosis: (1) Acute renal failure (2) DM (diabetes mellitus) (3) Chronic kidney disease, stage III (moderate) (4) Atrial fibrillation (5) Hyperlipidemia (6) Chronic obstructive pulmonary disease (7) Hypertension (8) Shortness of breath dyspnea (9) Congestive heart failure (10) STEMI (ST elevation myocardial infarction) (11) COPD exacerbation Goals to Promote Your Health * To prevent worsening of your condition and complications * To maintain your health at the optimal level Directions to Meet Your Goals Please follow up with Dr. Ramirez of pulmonary medicine this week. You will need a sleep study and 6 minute walk test. You will need a PET CT or CT chest in 3 months. Please follow up with Dr. Frazier of cardiology in one week. Please follow up with your PCP in one week. Take your medications as prescribed Follow your dietary instruction Follow activity as directed Keep your appointments as scheduled Take your immunizations and boosters as scheduled If your symptoms worsen call your PCP, if no PCP go to Urgent Care Center or Emergency Room Smoking is Dangerous to Your Health. Avoid second hand smoke Call the 24-hour hour crisis hotline for domestic abuse at Shantal Lam Jan 01, 2017 13:05
--- NOTE | 2017-01-01 13:37 | HHI.DS ---
Discharge Summary Admission Date Dec 20, 2016 at 22:32 Discharge Date: Jan 01, 2017 Admitting Diagnosis STEMI (1) STEMI (ST elevation myocardial infarction) ICD Code: I21.3 - ST elevation (STEMI) myocardial infarction of unspecified site Status: Acute (2) DM (diabetes mellitus) ICD Code: E11.9 - DM (diabetes mellitus) Status: Acute (3) Chronic kidney disease, stage III (moderate) ICD Code: N18.3 - Chronic kidney disease, stage III (moderate) Status: Acute (4) Chronic obstructive pulmonary disease ICD Code: J44.9 - Chronic obstructive pulmonary disease Status: Chronic (5) Atrial fibrillation ICD Code: I48.91 - Atrial fibrillation Status: Chronic (6) Hypertension ICD Code: I10 - Hypertension Status: Chronic (7) Hyperlipidemia ICD Code: E78.5 - Hyperlipidemia Status: Chronic (8) COPD exacerbation ICD Code: J44.1 - Chronic obstructive pulmonary disease with (acute) exacerbation Status: Acute (9) Shortness of breath dyspnea ICD Code: R06.02 - Shortness of breath dyspnea Status: Acute Procedures 12/20/16 cardiac catheterization Brief History - From Admission The patient is an 86-year-old male with history of coronary artery disease, diabetes, hypertension, atrial fibrillation. He presented to the emergency department with complaint of chest pain. He was noted to have EKG changes and STEMI alert was called. He was started on aspirin, heparin, nitroglycerin. Cardiology was contacted. Cardiac catheterization was done with placement of bare metal stent. The patient denies chest pain currently. He does have pain in his upper back. He reports chronic dyspnea related to COPD. He has a chronic indwelling Cortez catheter, which is due to be changed today. CBC/BMP: 01/01/17 0610 01/01/17 0610 Significant Findings Laboratory Tests Test 01/01/17 06:10 White Blood Count 17.1 TH/MM3 (4.0-11.0) Red Blood Count 3.76 MIL/MM3 (4.50-5.90) Hemoglobin 10.6 GM/DL (13.0-17.0) Hematocrit 32.7 % (39.0-51.0) Blood Urea Nitrogen 61 MG/DL (7-18) Creatinine 1.89 MG/DL (0.60-1.30) Random Glucose 50 MG/DL (74-106) Total Protein 6.2 GM/DL (6.4-8.2) Albumin 2.8 GM/DL (3.4-5.0) Alkaline Phosphatase 118 U/L (45-117) Estimat Glomerular Filtration Rate 34 ML/MIN (>89) Imaging Last Impressions Chest X-Ray 12/26/16 0000 Signed Impressions: Service Date/Time: Monday, December 26, 2016 13:40 - CONCLUSION: 1. Heart size is borderline prominent but well compensated. 2. Minimal atelectatic changes above the right hemidiaphragm. Colt Padilla MD Renal Ultrasound 12/25/16 0000 Signed Impressions: Service Date/Time: Sunday, December 25, 2016 11:37 - CONCLUSION: 1. Echogenic kidneys bilaterally compatible with medical renal disease. Kenji Calderon MD Chest CT 12/23/16 1631 Signed Impressions: Service Date/Time: Friday, December 23, 2016 17:11 - CONCLUSION: 1. 1 cm irregular nodule in the right upper lobe. Guidelines from the Fleischner Society for the follow-up and management of newly detected indeterminate 8 mm or greater average diameter pulmonary nodules in persons >34 years old depend on nodule size (average of length and width) and underlying risk factors (including smoking and other risk factors). Please consider the following recommendations after clinical assessment of risk factors. For nodules >8 mm: 2. In low risk patients, follow-up CT at approximately 3, 9, and 24 months. In high risk patients, dynamic contrast-enhanced CT, PET, and/or biopsy. 3. Small right pleural effusion. 4. Mild underlying emphysema. 5. Coronary artery calcifications. Wilfredo Shah MD PE at Discharge GENERAL: WDWN male, INAD. Awake and alert. Sitting up in bedside chair. SKIN: Warm and dry. Laceration noted on left lower leg, healing over past several days. HEAD: Atraumatic. Normocephalic. EYES: EOMI. No scleral icterus. No injection or drainage. NECK: Supple, trachea midline. No lymphadenopathy. CARDIOVASCULAR: Irregularly irregular rhythm and normal normal without murmurs, gallops, or rubs. RESPIRATORY: Breath sounds equal bilaterally, diminished throughout. No accessory muscle use. GASTROINTESTINAL: Abdomen soft, non-tender, nondistended. MUSCULOSKELETAL: No cyanosis, or edema. NEUROLOGIC: Awake and alert. Able to move all extremities spontaneously. No focal neurologic findings. PSYCHIATRIC: Mood and affect appropriate. Alert and oriented x3. No gross presentation of depression/anxiety. Speech was clear and fluent. Pt update on day of discharge Patient seen and examined. Patient doing well. No new complaints today. Denies any fever or chills. No chest pain or SOB. No N/V or abdominal pain Discussed with Ester STEIN, no acute issues. Hospital Course 86yo admitted with STEMI. Underwent cardiac catheterization and implantation of bare metal stents to the mid and distal left anterior descending stent to the left anterior descending coronary artery. Complications include acute on chronic kidney injury. Patient also has COPD and is severely deconditioned. Patient followed by cardiology, nephrology and pulmonolgy. Initial plan was for discharge to SNF. However he refused SNF. Patient continued to progress with PT with recommendations to be discharged to home with home health PT. STEMI: Status post cardiac catheterization with stent placement. Management per cardiology. Continue aspirin, statin, Imdur, Brilinta. Patient cleared from cardiology standpoint. SOB: Improving. Patient off nasal cannula oxygen. Patient did not qualify for home oxygen via walk test. CT chest shows 1cm RUL. Pulmonary following. Started on Symbicort. Continue on tapering dose of prednisone x 2 weeks. Patient needs outpatient sleep study and 6 min walk test this week. Patient will need PET CT or CT chest in 3 months as outpatient. Patient cleared for discharge from pulmonary standpoint. Acute kidney injury superimposed on chronic kidney disease: Possible contrast nephropathy. Nephrology following. Creatinine improved. Ok to continue on po Lasix per nephrology. Renal ultrasound consistent with medical renal disease. Hypertension: Continue antihypertensive medications. Monitor blood pressure. Questionable history of CHF: Echocardiogram shows hyperdynamic left ventricular systolic function with EF 65-70%. COPD: Continue supplemental oxygen. Bronchodilators. Appreciate pulmonology recommendations. Started on Symbicort and continue steroid taper x 2 weeks per pulm. Diabetes mellitus: Monitor Accu-Cheks and cover with sliding scale insulin. Case discussed with patient, Ester STEIN and Dr. Lawson Pt Condition on Discharge: Stable Discharge Disposition: Disch w/ Home Health Serv Discharge Time: > 30 minutes Discharge Instructions DIET: Follow Instructions for: Heart Healthy Diet, Diabetic Diet Activities you can perform: Regular-No Restrictions Follow up Referrals: Cardiology - 1 Week with Marin Frazier MD PCP Follow-up - 1 Week Pulmonology - 1 Week with Radha Ramirez MD New Medications: Budesonide-Formoterol Inh (Symbicort Inh) 160-4.5 Mcg/Act Aero 2 PUFF INH Q12HR, #1 INHALER 0 Refills Walker with Front Wheels (Walker with Front Wheels) 1 Mis Mis EA .ROUTE DIRECTED, #1 0 Refills Aspirin (Aspirin Low Strength) 81 Mg Chew 81 MG PO DAILY for Blood Clot Prevention for 30 Days, EA Atorvastatin (Atorvastatin) 40 Mg Tab 40 MG PO HS for HYPERLIPIDEMIA for 30 Days, TAB Furosemide (Furosemide) 40 Mg Tab 40 MG PO DAILY for Blood Pressure Management for 30 Days, #30 TAB 0 Refills Hydralazine HCl (Hydralazine HCl) 50 Mg Tablet 50 MG PO Q8HR for Blood Pressure Management for 30 Days, #90 TAB 0 Refills Isosorbide Mononitrate ER (Isosorbide Mononitrate ER) 60 Mg Tab 60 MG PO DAILY@07 for Heart, #30 TAB 0 Refills Prednisone (Prednisone) 10 Mg Tab 15 MG PO DAILY for BRONCHITIS for 14 Days, TAB Take 15mg daily x 4 days, then take 10mg daily x 4 days, then take 5mg daily x 4 days, then take 2.5mg daily x 2 days then discontinue Ticagrelor (Brilinta) 90 Mg Tab 90 MG PO BID for Blood Clot Prevention for 30 Days, TAB Continued Medications: Albuterol Powder Inh (Proair Respiclick Inh) 90 Mcg/Act Aerp 1 PUFF INH Q4H PRN for SHORTNESS OF BREATH, #1 INHALER 0 Refills Ascorbic Acid (Ascorbic Acid) 500 Mg Tab 500 MG PO, TAB Cholecalciferol (Vitamin D-3) 1,000 Unit Tab 1000 UNITS PO DAILY, #30 TAB 0 Refills Citric Kpsc-Geziznrmiyc-Pgdrkhgcw Carbon Irr (Renacidin Irr) 500 Ml Soln 30 ML IRRIGATION WEEKLY, #1 CONTAINER Gabapentin (Gabapentin) 300 Mg Cap 300 MG PO DAILY@0600, #30 CAP 0 Refills Gabapentin (Gabapentin) 400 Mg Cap 400 CAP PO HS, #30 CAP 0 Refills Insulin Aspart Inj (Novolog Inj) 100 Unit/Ml Inj 12 SQ TIDAC Insulin Human NPH Inj (Novolin N Inj) 1,000 Unit/10 Ml Vial 22 UNITS SQ HS for Blood Sugar Management, #10 ML 0 Refills Lactobacillus Acidophilus (Lactobacillus Acidophilus) 1 Billion Cell Tab 1 TAB PO TIDAC for Nutritional Supplement, #30 TAB 0 Refills (This prescription has been renewed) Omeprazole (Omeprazole) 20 Mg Cap 20 MG PO AC BREAKFAST Tiotropium Inh (Spiriva Handihaler) 18 Mcg Cap 18 MCG INH DAILY for COPD, #30 CAP 0 Refills 1 capsule = 18 mcg Discontinued Medications: Azithromycin (Azithromycin) 250 Mg Tab 250 MG PO DAILY@20 for COPD for 2 Days, TAB Carvedilol (Carvedilol) 6.25 Mg Tab 6.25 MG PO BID, #60 TAB 0 Refills Furosemide (Furosemide) 20 Mg Tab 20 MG PO DAILY for HTN for 30 Days, TAB Losartan (Losartan) 25 Mg Tab 12.5 MG PO DAILY for Blood Pressure Management, #15 TAB 0 Refills Prednisone (Prednisone) 20 Mg Tab 20 MG PO BID for CIPD for 3 Days, TAB Rosuvastatin (Rosuvastatin) 20 Mg Tab 10 MG PO HS for Cholesterol Management, #30 TAB 0 Refills Shantal Lam Jan 01, 2017 13:36
== END 2017-01-01 15:40 | disposition home health service (06) | DRG 249 ==
LOC: NEPE 22:13 → NEDA 22:32 → HCIN 12-21 00:30
PROVIDERS: ADMIT Family Medicine; ATTEND Family Medicine
PROC: 02703EZ Dilation of Coronary Artery, One Artery with Two Intraluminal Devices, Percutaneous Approach (ICD-10-PCS; principal; 2016-12-21)
PROC: 02C03ZZ Extirpation of Matter from Coronary Artery, One Artery, Percutaneous Approach (ICD-10-PCS; 2016-12-21)
PROC: 4A023N7 Measurement of Cardiac Sampling and Pressure, Left Heart, Percutaneous Approach (ICD-10-PCS; 2016-12-21)
PROC: B2111ZZ Fluoroscopy of Multiple Coronary Arteries using Low Osmolar Contrast (ICD-10-PCS; 2016-12-21)
DX: I21.3 ST elevation (STEMI) myocardial infarction of unspecified site (principal); N17.9 Acute kidney failure, unspecified; E11.22 Type 2 diabetes mellitus with diabetic chronic kidney disease; I50.9 Heart failure, unspecified; I13.0 Hypertensive heart and chronic kidney disease with heart failure and stage 1 through stage 4 chronic kidney disease, or unspecified chronic kidney disease; J44.1 Chronic obstructive pulmonary disease with (acute) exacerbation; I48.2 Chronic atrial fibrillation; I25.10 Atherosclerotic heart disease of native coronary artery without angina pectoris; N18.3 Chronic kidney disease, stage 3 (moderate); E78.5 Hyperlipidemia, unspecified; R91.1 Solitary pulmonary nodule; R09.02 Hypoxemia; I25.2 Old myocardial infarction; J98.01 Acute bronchospasm; K59.00 Constipation, unspecified; N14.1 Nephropathy induced by other drugs, medicaments and biological substances; T50.8X5A Adverse effect of diagnostic agents, initial encounter; G47.33 Obstructive sleep apnea (adult) (pediatric); S81.812A Laceration without foreign body, left lower leg, initial encounter; Z87.891 Personal history of nicotine dependence; Z85.46 Personal history of malignant neoplasm of prostate; Z79.4 Long term (current) use of insulin; Z95.5 Presence of coronary angioplasty implant and graft; Z88.0 Allergy status to penicillin; Z88.8 Allergy status to other drugs, medicaments and biological substances
CPT/HCPCS: 71010; 71250; 76775; 76937; 80048; 80053; 80061; 82310; 82435; 82550; 82552; 82565; 82947; 82948; 83735; 83880; 84132; 84295; 84484; 84520; 85007; 85025; 85027; 85610; 85730; 92941; 92973; 93005; 93306; 93454; 94060; 94640; 94664; 96374; 96375; C1725; C1757; C1769; C1876; C1887; C1893; J0153; J0360; J0461; J0583; J1644; J1815; J1940; J2270; J2920; J7030; J7512; Q9967

== ENCOUNTER 2017-01-09 15:22 | Inpatient (IN) | payer OTHER, MEDICARE ==
[~2017-01-09] VITALS: Ht 170.2 cm; Wt 103.4 kg
[2017-01-09] VITALS (8 sets, daily range): BP systolic 158–214; BP diastolic 66–152; PULSE 78–120; RESP 18–22; TEMP 97.5–98.2; O2SAT 97–100
[~2017-01-09 15:22] MED LIST changes: +ASPI81CH25 PO; +ATOR40TA16 PO; -AZIT250T3 PO; +BRIL90TA PO; -CARV6.252 PO; -FURO20TA PO; +FURO40TA PO; +HYDR-3800 PO; +ISOS60TA PO; +LACTTAB8 PO; -LOSA25TA PO; +PRED10 PO; -PRED20 PO; -ROSU1TAB8 PO; +SYMB160A INH; +WALKER WHEELS/F1 MIS
[2017-01-09] MEDS ORDERED: methylPREDNISolone SOD SUCC 125 MG/2 ML VIAL IV PUSH ONE (16:00)
--- NOTE | 2017-01-09 16:18 | PD ---
HPI Chief Complaint: Respiratory Symptoms Time Seen by Provider: 15:46 Travel History International Travel<30 days: No Contact w/Intl Traveler<30days: No Traveled to known affect area: No History of Present Illness HPI 86-year-old male that presents to the ED for evaluation of shortness of breath with exertion as well as chest discomfort. Patient was seen here and released last week after he was found to have a STEMI and put in a stent. Patient has a chronic history of COPD, CHF, heart disease as well as diabetes with neuropathy. Patient states that he was discharged from the hospital with "no medications for. Per patient she's been able to use his inhalers and nebulizer treatments with some relief. Per patient for the past 2 days his shortness of breath has worsened to the point where he can barely ambulate without feeling severely short of breath. He does not use oxygen at home. He states that yesterday night he developed a little chest discomfort for his to his back. Per patient he took one of his Brilinta which made his symptoms worse. Per patient this is the only medication he was given. He denies any current chest pain. Per patient he has minimal shortness of breath at this time as long as he doesn't move. He is on oxygen at this time. He came here by ambulance for evaluation of this year per patient he went yesterday to the [place] he was told that if anything worsens she is to come back here. PFSH Past Medical History Anemia: Yes Arthritis: Yes Asthma: No Atrial Fibrillation: Yes Anxiety: No Depression: Yes Heart Rhythm Problems: Yes (afib) Cancer: Yes (PROSTATE) Cardiac Catheterization: Yes Cardiovascular Problems: Yes (HEART ATTACK 10 YEARS AGO ) High Cholesterol: Yes Chemotherapy: No Chest Pain: Yes Congestive Heart Failure: Yes COPD: Yes Cerebrovascular Accident: No Coronary Artery Disease: Yes Diabetes: Yes (dM TYPE 2) Diminished Hearing: Yes (BILATERAL HEARING AIDS) Endocrine: Yes Genitourinary: Yes Hiatal Hernia: No Hypertension: Yes Immune Disorder: No Implanted Vascular Access Dvce: No Musculoskeletal: Yes Neurologic: No Psychiatric: Yes Reproductive: No Respiratory: Yes Immunizations Current: Yes Myocardial Infarction: Yes Pneumonia: Yes Radiation Therapy: Yes (PROSTATE) Seizures: Yes (CHILDHOOD) Sleep Apnea: Yes Thyroid Disease: No Ulcer: Yes Past Surgical History Appendectomy: Yes Body Medical Devices: "little peg in the L great toe" Cardiac Surgery: Yes (coronary stents 6 [facility] & 2 THIS VISIT) Coronary Stent: Yes Genitourinary Surgery: Yes (took suprapubic cath out) Oral Surgery: Yes (tonsillectomy) Prostatectomy: Yes Tonsillectomy: Yes Other Surgery: Yes Social History Alcohol Use: No Tobacco Use: No Substance Use: No Allergies-Medications (Allergen,Severity, Reaction): Coded Allergies: penicillin G (Unverified Allergy, Severe, 12/05/16) warfarin (Unverified Allergy, Severe, 12/05/16) Reported Meds & Prescriptions Reported Meds & Active Scripts Active Aspirin Low Strength (Aspirin) 81 Mg Chew 81 Mg PO DAILY 30 Days Atorvastatin (Atorvastatin Calcium) 40 Mg Tab 40 Mg PO HS 30 Days Brilinta (Ticagrelor) 90 Mg Tab 90 Mg PO BID 30 Days Symbicort Inh (Budesonide/Formoterol Fumarate) 160-4.5 Mcg/Act Aero 2 Puff INH Q12HR Furosemide 40 Mg Tab 40 Mg PO DAILY 30 Days Hydralazine HCl 50 Mg Tablet 50 Mg PO Q8HR 30 Days Lactobacillus Acidophilus 1 Billion Cell Tab 1 Tab PO TIDAC Isosorbide Mononitrate ER (Isosorbide Mononitrate) 60 Mg Tab 60 Mg PO DAILY@07 Reported Spiriva Handihaler (Tiotropium Inh) 18 Mcg Cap 18 Mcg INH DAILY 1 capsule = 18 mcg Omeprazole 20 Mg Cap 20 Mg PO AC BREAKFAST Novolog Inj (Insulin Aspart) 100 Unit/Ml Inj 12 SQ TIDAC Novolin N Inj (Insulin Human NPH) 1,000 Unit/10 Ml Vial 22 Units SQ HS Gabapentin 400 Mg Cap 400 Cap PO HS Gabapentin 300 Mg Cap 300 Mg PO DAILY@0600 Proair Respiclick Inh (Albuterol Sulfate) 90 Mcg/Act Aerp 1 Puff INH Q4H PRN Review of Systems Except as stated in HPI: all other systems reviewed are Neg Physical Exam Narrative GENERAL: SKIN: Warm and dry. HEAD: Atraumatic. Normocephalic. EYES: Pupils equal and round. No scleral icterus. No injection or drainage. ENT: No nasal bleeding or discharge. Mucous membranes pink and moist. Tongue is midline. No uvula deviation. NECK: Trachea midline. No JVD. CARDIOVASCULAR: Regular rate and rhythm. No murmurs, S3, S4. RESPIRATORY: No accessory muscle use. Rales heard in all lung garibay. Breath sounds equal bilaterally. GASTROINTESTINAL: Abdomen soft, non-tender, nondistended. Hepatic and splenic margins not palpable. MUSCULOSKELETAL: Extremities without clubbing, cyanosis, or edema. No obvious deformities. Full range of motion of the upper and lower extremities bilaterally. Patient has bilateral lower leg edema that is 2+. Patient does have an area of erythema around the medial aspect of the left leg. Patient does appear to have what appears to be erythema and swelling around the third and second toes of the left foot. More noted on the third than this second. Patient does appear to have 2+ pulses. Good capillary refill. NEUROLOGICAL: Awake and alert. No obvious cranial nerve deficits. Motor grossly within normal limits. Five out of 5 muscle strength in the arms and legs. Normal speech. PSYCHIATRIC: Appropriate mood and affect; insight and judgment normal. Data Data Last Documented VS Vital Signs Date Time Temp Pulse Resp B/P (MAP) Pulse Ox O2 Delivery O2 Flow Rate FiO2 01/09/17 17:00 78 18 158/66 (96) 99 Nasal Cannula 3.00 01/09/17 15:32 98.2 Orders Orders Complete Blood Count With Diff (01/09/17 15:58) Comprehensive Metabolic Panel (01/09/17 15:58) Ckmb (Isoenzyme) Profile (01/09/17 15:58) Troponin I (01/09/17 15:58) B-Type Natriuretic Peptide (01/09/17 15:58) Prothrombin Time / Inr (Pt) (01/09/17 15:58) Act Partial Throm Time (Ptt) (01/09/17 15:58) Lipase (01/09/17 15:58) Urinalysis - C+S If Indicated (01/09/17 15:58) Thyroid Stimulating Hormone (01/09/17 15:58) Chest, Single Ap (01/09/17 15:58) Iv Access Insert/Monitor (01/09/17 15:58) Ecg Monitoring (01/09/17 15:58) Oximetry (01/09/17 15:58) Methylprednisolone So Succ Inj (Solumedr (01/09/17 16:00) Albuterol-Ipratropium Neb (Duoneb Neb) (01/09/17 16:00) Toe (Min 2vws) (01/09/17 ) Urine Culture (01/09/17 16:15) CKMB (01/09/17 16:15) CKMB% (01/09/17 16:15) Electrocardiogram (01/09/17 ) Furosemide Inj (Lasix Inj) (01/09/17 18:15) Labs Laboratory Tests Test 01/09/17 16:15 White Blood Count 10.7 TH/MM3 Red Blood Count 3.69 MIL/MM3 Hemoglobin 10.3 GM/DL Hematocrit 32.1 % Mean Corpuscular Volume 87.0 FL Mean Corpuscular Hemoglobin 27.8 PG Mean Corpuscular Hemoglobin Concent 32.0 % Red Cell Distribution Width 16.5 % Platelet Count 152 TH/MM3 Mean Platelet Volume 8.5 FL Neutrophils (%) (Auto) 84.7 % Lymphocytes (%) (Auto) 4.6 % Monocytes (%) (Auto) 8.4 % Eosinophils (%) (Auto) 1.7 % Basophils (%) (Auto) 0.6 % Neutrophils # (Auto) 9.0 TH/MM3 Lymphocytes # (Auto) 0.5 TH/MM3 Monocytes # (Auto) 0.9 TH/MM3 Eosinophils # (Auto) 0.2 TH/MM3 Basophils # (Auto) 0.1 TH/MM3 CBC Comment DIFF FINAL Differential Comment Prothrombin Time 11.1 SEC Prothromb Time International Ratio 1.0 RATIO Activated Partial Thromboplast Time 25.9 SEC Urine Color YELLOW Urine Turbidity HAZY Urine pH 8.5 Urine Specific Fleming 1.016 Urine Protein GREATER THAN 600 mg/dL Urine Glucose (UA) NEG mg/dL Urine Ketones TRACE mg/dL Urine Occult Blood TRACE Urine Nitrite POS Urine Bilirubin NEG Urine Urobilinogen LESS THAN 2.0 MG/DL Urine Leukocyte Esterase MOD Urine RBC 3 /hpf Urine WBC 7 /hpf Urine Squamous Epithelial Cells 3 /hpf Urine Bacteria OCC /hpf Urine Mucus FEW /lpf Microscopic Urinalysis Comment CULTURE INDICATED Blood Urea Nitrogen 36 MG/DL Creatinine 1.78 MG/DL Random Glucose 96 MG/DL Total Protein 6.3 GM/DL Albumin 2.8 GM/DL Calcium Level 8.1 MG/DL Alkaline Phosphatase 187 U/L Aspartate Amino Transf (AST/SGOT) 60 U/L Alanine Aminotransferase (ALT/SGPT) 70 U/L Total Bilirubin 0.7 MG/DL Sodium Level 139 MEQ/L Potassium Level 4.3 MEQ/L Chloride Level 106 MEQ/L Carbon Dioxide Level 23.5 MEQ/L Anion Gap 10 MEQ/L Estimat Glomerular Filtration Rate 37 ML/MIN Total Creatine Kinase 346 U/L Creatine Kinase MB 23.2 NG/ML Creatine Kinase MB % 6.7 % Troponin I 7.60 NG/ML B-Type Natriuretic Peptide 454 PG/ML Lipase 91 U/L Thyroid Stimulating Hormone 3rd Gen 3.120 uIU/ML MDM Medical Decision Making Medical Screen Exam Complete: Yes Emergency Medical Condition: Yes Medical Record Reviewed: Yes Interpretation(s) Last Impressions Chest X-Ray 01/09/17 1558 Signed Impressions: Service Date/Time: Saturday, January 09, 2017 17:33 - CONCLUSION: Findings suspicious for congestive failure. Wilfredo Maddox MD FACR Toe X-Ray 01/09/17 0000 Signed Impressions: Service Date/Time: Saturday, January 09, 2017 17:40 - CONCLUSION: Soft tissue swelling third digit without bony destruction. Wilfredo Maddox MD FACR CBC & BMP Diagram 01/09/17 16:15 Total Protein 6.3 L, Albumin 2.8 L, Calcium Level 8.1 L, Alkaline Phosphatase 187 H, Aspartate Amino Transf (AST/SGOT) 60 H, Alanine Aminotransferase (ALT/ SGPT) 70, Total Bilirubin 0.7 BNP elevated in the 400s troponin and CK elevated with troponin of 7 EKG shows sinus rhythm with no changes from prior exam. Differential Diagnosis Acute on chronic COPD versus. Exacerbation versus an STEMI versus pericardial edema versus CHF versus DKA versus STEMI Narrative Course 86-year-old male that presents to the ED for evaluation of shortness of breath for the past 2 days. Patient has a completely history including having had a stent 2 weeks ago. Labs and imaging were ordered. Labs and troponin came positive for elevated BNP, troponin of 7. Chest x-ray showing findings of pulmonary edema and CHF. EKG did not show any changes from prior on December 20. Case was discussed with my attending Dr. Camacho evaluated all of the information and the patient her recommends we speak with Dr. bauer who did the stenting. Dr. Rodríguez called me back in the house with Dr. bauer and recommends that for the most part probably not much to do. He does not recommend putting patient heparin but possibly put him back on his medications that he's been off of because of his financial situation. Patient does appear to still be some short of breath with ambulation. It had the patient ambulate and he is O2 the came down. At this time recommendations for admission for CHF exacerbation versus COPD exacerbation versus both. This was discussed with Dr. Davis who agrees with this. In regards to his toe infection this appears to be superficial likely cellulitis I will treat with antibiotics. I started patient here on Bactrim by mouth. Patient was given here Solu-Medrol, Lasix, doing nebs with some improvement. I attending Dr. Camacho agrees with admission. Diagnosis Primary Impression: COPD exacerbation Additional Impressions: Congestive heart failure Qualified Codes: I50.23 - Acute on chronic systolic (congestive) heart failure Infection of toe Admitting Information Admitting Physician Requests: Observation Nic Fuller Jan 09, 2017 16:18
[2017-01-09] MEDS: RESP: ALBUTEROL 2.5 MG/IPRATROPIUM 0.5 MG NEB (SCH) INH ×2 (16:27→20:03)
[2017-01-09 16:32] LABS: BASOPHIL # 0.1 TH/MM3 (0-0.2); BASOPHIL % 0.6 % (0.0-2.0); EOSINOPHIL # 0.2 TH/MM3 (0-0.4); EOSINOPHIL % 1.7 % (0.0-4.0); HEMATOCRIT 32.1 % (39.0-51.0); HEMO FLAGS DIFF FINAL; LYMPH % 4.6 % (9.0-44.0); LYMPHOCYTE # 0.5 TH/MM3 (1.0-4.8); MEAN CORPUSCULAR HEMOGLOBIN 27.8 PG (27.0-34.0); MONO % 8.4 % (0.0-8.0); NEUT % 84.7 % (16.0-70.0); PLATELET COUNT 152 TH/MM3 (150-450); RED BLOOD COUNT 3.69 MIL/MM3 (4.50-5.90); RED CELL DISTRIBUTION WIDTH 16.5 % (11.6-17.2); WHITE BLOOD COUNT 10.7 TH/MM3 (4.0-11.0)
[2017-01-09 16:33] LABS: BACTERIA, URINE OCC /hpf; BLOOD, URINE TRACE (NEG); GLUCOSE,URINE NEG (NEG); KETONE, URINE TRACE mg/dL (NEG); MUCUS URINE FEW /lpf (OCC); NITRITE,URINE POS (NEG); PH, URINE 8.5 (5.0-8.5); SQUAMOUS EPITHELIAL CELL URINE 3 /hpf (0-5); URINE COLOR YELLOW (YELLW/STRAW)
[2017-01-09 16:35] LABS: COMMENT (UR) CULTURE INDICATED; CULTURE IF INDICATED CULTURE INDICATED
[2017-01-09 16:45] LABS: PROTHROMBIN TIME - PATIENT 11.1 SEC (9.8-11.6)
[2017-01-09 16:52] LABS: ALT (GPT) 70 U/L (12-78); ANION GAP 10 MEQ/L (5-15); AST (GOT) 60 U/L (15-37); BICARBONATE 23.5 MEQ/L (21.0-32.0); BLOOD UREA NITROGEN 36 MG/DL (7-18); CHLORIDE 106 MEQ/L (98-107); GLOMERULAR FILTRATION RATE 37 ML/MIN (>89); POTASSIUM 4.3 MEQ/L (3.5-5.1); SODIUM (NA) 139 MEQ/L (136-145)
[2017-01-09 16:53] LABS: APTT (PATIENT) 25.9 SEC (24.3-30.1)
[2017-01-09 17:00] LABS: ALKALINE PHOSPHATASE 187 U/L (45-117); CREATINE KINASE 346 U/L (39-308); TOTAL BILIRUBIN ADULT 0.7 MG/DL (0.2-1.0)
[2017-01-09 17:13] LABS: CKMB 23.2 NG/ML (0.5-3.6)
--- NOTE | 2017-01-09 18:03 | RADRPT ---
EXAM DATE/TIME: 01/09/2017 17:33 [facility] COMPARISON: CHEST SINGLE AP, December 26, 2016, 13:40. INDICATIONS : Short of breath MEDICAL HISTORY : Chronic obstructive pulmonary disease. Congestive heart failure. Myocardial infarction. hypertens ion, Diabetes, Afib SURGICAL HISTORY : Coronary artery stent. ENCOUNTER: Initial ACUITY: 3 days PAIN SCORE: 0/10 LOCATION: Bilateral chest FINDINGS: Course interstitial changes are seen with cardiomegaly suspicious for congestive failure. There is e vidence of elevation pleural effusion or pneumothorax. The portion of the bony skeleton visualized is unremarkable. CONCLUSION: Findings suspicious for congestive failure. Wilfredo Maddox MD FACR on January 09, 2017 at 18:00 Board Certified Radiologist. This report was verified electronically.
--- NOTE | 2017-01-09 18:04 | RADRPT ---
EXAM DATE/TIME: 01/09/2017 17:40 [facility] COMPARISON: No previous studies available for comparison. INDICATIONS : Left third digit redness and swelling. MEDICAL HISTORY : Diabetes mellitus type II. Cardiovascular disease. Chronic obstructive pulmonary disease. hyperte nsion, chf, afib SURGICAL HISTORY : None. ENCOUNTER: Initial ACUITY: 3 days PAIN SCORE: 0/10 LOCATION: Left 3rd digit FINDINGS: There is soft tissue swelling about the third digit without bony destruction. It was previous surger y is noted at the distal first metatarsal. CONCLUSION: Soft tissue swelling third digit without bony destruction. Wilfredo Maddox MD FACR on January 09, 2017 at 18:02 Board Certified Radiologist. This report was verified electronically.
[2017-01-09] MEDS ORDERED: FUROSEMIDE 40 MG/4 ML VIAL IV PUSH ONE (18:15)
[2017-01-09] MEDS ORDERED: NALOXONE HCL 0.4 MG/ML AMP IV PUSH PRN (18:30)
[2017-01-09] MEDS ORDERED: Vancomycin Consult Pharmacy 1 EA OTHER SCH (18:30)
[2017-01-09] MEDS ORDERED: LACTULOSE SYRUP 20 GM/30 ML CUP PO PRN (18:30)
[2017-01-09] MEDS ORDERED: oxyCODONE/ACETAMINOPHEN 5 MG/325 MG TAB PO PRN (18:30)
[2017-01-09] MEDS ORDERED: SODIUM CHLORIDE 0.9% FLUSH 10 ML FLUSH IV FLUSH PRN ×2 (18:30→19:00)
[2017-01-09] MEDS ORDERED: BISACODYL 10 MG SUPP RECTAL PRN (18:30)
[2017-01-09] MEDS ORDERED: DEXTROSE 50% IN WATER 50 ML VIAL(D50) IV PUSH PRN (18:30)
[2017-01-09] MEDS ORDERED: MORPHINE SULFATE 4 MG/ML INJ IV PUSH PRN ×2 (18:30)
[2017-01-09] MEDS ORDERED: GLUCAGON 1 MG/ML VIAL OTHER PRN (18:30)
[2017-01-09] MEDS ORDERED: ACETAMINOPHEN 325 MG TAB PO PRN ×2 (18:30)
[2017-01-09] MEDS ORDERED: VANCOMYCIN INJ 1,000 MG in SODIUM CHLOR 0.9% 250 ML INJ 250 ML IV SCH (18:30)
[2017-01-09] MEDS ORDERED: PROCHLORPERAZINE 25 MG SUPP RECTAL PRN (18:30)
[2017-01-09] MEDS ORDERED: MAGNESIUM HYDROXIDE SUSP 30 ML CUP PO PRN (18:30)
[2017-01-09] MEDS ORDERED: SENNOSIDES 8.6 MG TAB PO PRN (18:30)
[2017-01-09] MEDS ORDERED: NITROGLYCERIN 0.4 MG SL 25 TABS/BTL SL PRN (18:45)
[2017-01-09] MEDS ORDERED: RESP: ALBUTEROL 2.5 MG/3 ML NEB (PRN) INH (18:45)
--- NOTE | 2017-01-09 19:05 | HHI.HP ---
HPI Service [facility] Hospitalists Primary Care Physician [facility] Admission Diagnosis Diagnoses: (1) COPD exacerbation Diagnosis: Principal (2) Congestive heart failure Diagnosis: Principal (3) Infection of toe Diagnosis: Secondary (4) Shortness of breath dyspnea Diagnosis: Principal (5) Hypertension Diagnosis: Secondary (6) Chronic obstructive pulmonary disease Diagnosis: Principal (7) Hyperlipidemia Diagnosis: Secondary (8) Chronic kidney disease, stage III (moderate) Diagnosis: Secondary (9) Atrial fibrillation Diagnosis: Principal (10) DM (diabetes mellitus) Diagnosis: Principal (11) NSTEMI (non-ST elevated myocardial infarction) Diagnosis: Principal (12) UTI (lower urinary tract infection) Diagnosis: Secondary (13) Anemia Diagnosis: Secondary (14) Diabetes Diagnosis: Secondary Chief Complaint: shortness of breath chest discomfort Travel History International Travel<30 Days: No Contact w/Intl Traveler <30 Da: No Traveled to Known Affected Are: No History of Present Illness Written by Shantal Lam PA-C acting as scribe for Dr. Davis on 01/09/17 at 18:31. This is an 86-year-old male with past medical history significant for coronary artery disease status post recent stenting with implantation of bare- metal stent s/p discharge 01/01/17, COPD, questionable CHF, diabetes, atrial fibrillation, neuropathy, GERD and history of prostate cancer who presents to [facility] ED with complaints of shortness of breath and chest discomfort for the past 2 days. Patient reports he did not take his medications as prescribed except for Brilinta at the time of his discharge because the [facility] did not fill them for him. Patient has been taking Brilinta and is adamant that last night after taking this medication everything got much worse. He states his dyspnea is worse with exertion. He does not use oxygen at home and during his recent admission was administered two oxygen walk test which he passed. Reportedly, patient went to the [facility] yesterday and was told that if he worsened to come to our facility. In the ED, patient's troponin is elevated at 7.60. BNP is 454. Chest x-ray has findings suggestive of congestive failure. Review of Systems Constitutional: COMPLAINS OF: Fatigue, Weight gain, Change in appetite, DENIES : Diaphoretic episodes, Fever, Weight loss, Chills, Dizziness Endocrine: DENIES: Heat/cold intolerance, Polydipsia, Polyuria Eyes: DENIES: Blurred vision, Diplopia, Eye inflammation, Eye pain Ears, nose, mouth, throat: DENIES: Tinnitus, Hearing loss, Nasal discharge, Odynophagia Respiratory: COMPLAINS OF: Cough, Shortness of breath, DENIES: Apneas, Snoring , Wheezing, Hemoptysis Cardiovascular: COMPLAINS OF: Chest pain, Dyspnea on Exertion, PND, Lower Extremity Edema, DENIES: Palpitations, Syncope Gastrointestinal: DENIES: Abdominal pain, Black stools, Bloody stools Genitourinary: DENIES: Sexual dysfunction, Urinary frequency Musculoskeletal: COMPLAINS OF: Joint Swelling, DENIES: Joint pain, Muscle aches , Stiffness Integumentary: DENIES: Abnormal pigmentation, Nail changes Hematologic/lymphatic: DENIES: Bruising, Lymphadenopathy Immunologic/allergic: DENIES: Eczema, Urticaria Neurologic: COMPLAINS OF: Abnormal gait, Poor Balance, DENIES: Headache, Localized weakness, Paresthesias Psychiatric: COMPLAINS OF: Anxiety, Depression Except as stated in HPI: all other systems reviewed are Neg Past Family Social History Past Medical History CAD status post recent STEMI 12/21 with implantation of bare-metal stent Atrial fibrillation Hypertension COPD Chronic kidney disease stage III Diabetes mellitus Dyslipidemia Chronic smith Questionable history of CHF Neuropathy Prostate cancer Past Surgical History Recent cardiac catheterization with implantation of bare-metal stent Prostate surgery Appendectomy Reported Medications Aspirin Low Strength (Aspirin) 81 Mg Chew 81 Mg PO DAILY 30 Days Atorvastatin (Atorvastatin Calcium) 40 Mg Tab 40 Mg PO HS 30 Days Brilinta (Ticagrelor) 90 Mg Tab 90 Mg PO BID 30 Days Symbicort Inh (Budesonide/Formoterol Fumarate) 160-4.5 Mcg/Act Aero 2 Puff INH Q12HR Furosemide 40 Mg Tab 40 Mg PO DAILY 30 Days Hydralazine HCl 50 Mg Tablet 50 Mg PO Q8HR 30 Days Lactobacillus Acidophilus 1 Billion Cell Tab 1 Tab PO TIDAC Isosorbide Mononitrate ER (Isosorbide Mononitrate) 60 Mg Tab 60 Mg PO DAILY@07 Spiriva Handihaler (Tiotropium Inh) 18 Mcg Cap 18 Mcg INH DAILY 1 capsule = 18 mcg Omeprazole 20 Mg Cap 20 Mg PO AC BREAKFAST Novolog Inj (Insulin Aspart) 100 Unit/Ml Inj 12 SQ TIDAC Novolin N Inj (Insulin Human NPH) 1,000 Unit/10 Ml Vial 22 Units SQ HS Gabapentin 400 Mg Cap 400 Cap PO HS Gabapentin 300 Mg Cap 300 Mg PO DAILY@0600 Proair Respiclick Inh (Albuterol Sulfate) 90 Mcg/Act Aerp 1 Puff INH Q4H PRN Allergies: Coded Allergies: penicillin G (Unverified Allergy, Severe, 12/05/16) warfarin (Unverified Allergy, Severe, 12/05/16) Active Ordered Medications Current Medications Medications (Trade) Dose Ordered Sig/Marcos Route Start Time Stop Time Status Last Admin (Bactrim Ds 800-160 Mg) 1 tab ONCE ONCE PO 01/09/17 18:30 01/09/17 18:31 UNV (D50w (Vial) Inj) 50 ml UNSCH PRN IV PUSH 01/09/17 18:30 UNV (Glucagon Inj) 1 mg UNSCH PRN OTHER 01/09/17 18:30 UNV (NovoLOG SUPPLEMENTAL SCALE) 1 ACHS SLIDING SCALE SQ 01/09/17 21:00 UNV Family History Pulmonary disease Social History Patient has a remote history of tobacco use of 4 packs per day but states he quit more than 40 years ago. Patient denies any alcohol use or illicit drug use. Physical Exam Vital Signs Vital Signs Date Time Temp Pulse Resp B/P (MAP) Pulse Ox O2 Delivery O2 Flow Rate FiO2 01/09/17 17:00 78 18 158/66 (96) 99 Nasal Cannula 3.00 01/09/17 16:46 120 18 193/144 (160) 99 Nasal Cannula 3.00 01/09/17 16:44 99 18 214/152 (172) 99 Nasal Cannula 3.00 01/09/17 16:18 99 18 197/93 (127) 99 Nasal Cannula 3.00 01/09/17 15:32 98.2 99 18 167/86 (113) 100 01/09/17 15:30 88 18 98 Room Air Physical Exam GENERAL: This is a well-nourished, well-developed patient, in no apparent distress. SKIN: No rashes, ecchymoses or lesions. Cool and dry. Breakdown on left weeks breakdown on left 3 toes HEAD: Atraumatic. Normocephalic. No temporal or scalp tenderness. EYES: Pupils equal round and reactive. Extraocular motions intact. No scleral icterus. No injection or drainage. ENT: Nose without bleeding, purulent drainage or septal hematoma. Throat without erythema, tonsillar hypertrophy or exudate. Uvula midline. Airway patent. Tongue is midline NECK: Trachea midline. No lymphadenopathy. Supple, nontender, no meningeal signs. CARDIOVASCULAR: Irregular rate and rhythm without murmurs, gallops, or rubs. S1 -S2 no S3 or S4 RESPIRATORY: Clear to auscultation. Breath sounds equal bilaterally. No wheezes , rales, or rhonchi. GASTROINTESTINAL: Abdomen soft, non-tender, nondistended. No hepato-splenomegaly , or palpable masses. No guarding. MUSCULOSKELETAL: Extremities without clubbing, cyanosis, or edema. No joint tenderness, effusion, or edema noted. No calf tenderness. Negative Homans sign bilaterally. NEUROLOGICAL: Awake and alert. Cranial nerves II through XII intact. Motor and sensory grossly within normal limits. Five out of 5 muscle strength in all muscle groups. Normal speech. Insight and judgment is poor Mood and behavior somewhat appropriate Laboratory Laboratory Tests Test 01/09/17 16:15 White Blood Count 10.7 Red Blood Count 3.69 Hemoglobin 10.3 Hematocrit 32.1 Mean Corpuscular Volume 87.0 Mean Corpuscular Hemoglobin 27.8 Mean Corpuscular Hemoglobin Concent 32.0 Red Cell Distribution Width 16.5 Platelet Count 152 Mean Platelet Volume 8.5 Neutrophils (%) (Auto) 84.7 Lymphocytes (%) (Auto) 4.6 Monocytes (%) (Auto) 8.4 Eosinophils (%) (Auto) 1.7 Basophils (%) (Auto) 0.6 Neutrophils # (Auto) 9.0 Lymphocytes # (Auto) 0.5 Monocytes # (Auto) 0.9 Eosinophils # (Auto) 0.2 Basophils # (Auto) 0.1 CBC Comment DIFF FINAL Differential Comment Prothrombin Time 11.1 Prothromb Time International Ratio 1.0 Activated Partial Thromboplast Time 25.9 Urine Color YELLOW Urine Turbidity HAZY Urine pH 8.5 Urine Specific [place] 1.016 Urine Protein GREATER THAN 600 Urine Glucose (UA) NEG Urine Ketones TRACE Urine Occult Blood TRACE Urine Nitrite POS Urine Bilirubin NEG Urine Urobilinogen LESS THAN 2.0 Urine Leukocyte Esterase MOD Urine RBC 3 Urine WBC 7 Urine Squamous Epithelial Cells 3 Urine Bacteria OCC Urine Mucus FEW Microscopic Urinalysis Comment CULTURE INDICATED Blood Urea Nitrogen 36 Creatinine 1.78 Random Glucose 96 Total Protein 6.3 Albumin 2.8 Calcium Level 8.1 Alkaline Phosphatase 187 Aspartate Amino Transf (AST/SGOT) 60 Alanine Aminotransferase (ALT/SGPT) 70 Total Bilirubin 0.7 Sodium Level 139 Potassium Level 4.3 Chloride Level 106 Carbon Dioxide Level 23.5 Anion Gap 10 Estimat Glomerular Filtration Rate 37 Total Creatine Kinase 346 Creatine Kinase MB 23.2 Creatine Kinase MB % 6.7 Troponin I 7.60 B-Type Natriuretic Peptide 454 Lipase 91 Thyroid Stimulating Hormone 3rd Gen 3.120 Date/Time Source Procedure Growth Status 01/09/17 16:15 Urine Random Urine Urine Culture Pending Received Result Diagram: 01/09/17 1615 01/09/17 1615 Imaging Last Impressions Chest X-Ray 01/09/17 1558 Signed Impressions: Service Date/Time: Monday, January 09, 2017 17:33 - CONCLUSION: Findings suspicious for congestive failure. Wilfredo Maddox MD FACR Toe X-Ray 01/09/17 0000 Signed Impressions: Service Date/Time: Monday, January 09, 2017 17:40 - CONCLUSION: Soft tissue swelling third digit without bony destruction. Wilfredo Maddox MD FACR Caprini VTE Risk Assessment Caprini VTE Risk Assessment: Mod/High Risk (score >= 2) Caprini Risk Assessment Model Point Value = 1 Point Value = 2 Point Value = 3 Point Value = 5 Age 41-60 Minor surgery BMI > 25 kg/m2 Swollen legs Varicose veins or History of unexplained or recurrent spontaneous Oral contraceptives or hormone replacement Sepsis (< 1 month) Serious lung disease, including pneumonia (< 1 month) Abnormal pulmonary function Acute myocardial infarction Congestive heart failure (< 1 month) History of inflammatory bowel disease Medical patient at bed rest Age 61-74 Arthroscopic surgery Major open surgery (> 45 min) Laparoscopic surgery (> 45 min) Malignancy Confined to bed (> 72 hours) Immobilizing plaster cast Central venous access Age >= 75 History of VTE Family history of VTE Factor V Leiden Prothrombin [id number] Lupus anticoagulant Anticardiolipin antibodies Elevated serum homocysteine Heparin-induced thrombocytopenia Other congenital or acquired thrombophilia Stroke (< 1 month) Elective arthroplasty Hip, pelvis, or leg fracture Acute spinal cord injury (< 1 month) Prophylaxis Regimen Total Risk Factor Score Risk Level Prophylaxis Regimen 0-1 Low Early ambulation 2 Moderate Order ONE of the following: *Sequential Compression Device (SCD) *Heparin 5000 units SQ BID 3-4 Higher Order ONE of the following medications: *Heparin 5000 units SQ TID *Enoxaparin/Lovenox 40 mg SQ daily (WT < 150 kg, CrCl > 30 mL/min) *Enoxaparin/Lovenox 30 mg SQ daily (WT < 150 kg, CrCl > 10-29 mL/min) *Enoxaparin/Lovenox 30 mg SQ BID (WT < 150 kg, CrCl > 30 mL/min) AND/OR *Sequential Compression Device (SCD) 5 or more Highest Order ONE of the following medications: *Heparin 5000 units SQ TID (Preferred with Epidurals) *Enoxaparin/Lovenox 40 mg SQ daily (WT < 150 kg, CrCl > 30 mL/min) *Enoxaparin/Lovenox 30 mg SQ daily (WT < 150 kg, CrCl > 10-29 mL/min) *Enoxaparin/Lovenox 30 mg SQ BID (WT < 150 kg, CrCl > 30 mL/min) AND *Sequential Compression Device (SCD) Assessment and Plan Assessment and Plan 86-year-old male with past medical history significant for coronary artery disease status post recent stenting with implantation of bare-metal stent s/p discharge 01/01/17, COPD, questionable CHF, diabetes, atrial fibrillation, neuropathy, GERD and history of prostate cancer who presents to [facility] ED with complaints of shortness of breath and chest discomfort for the past 2 days. Questionable CHF exacerbation COPD exacerbation - secondary to medication noncompliance - Chest x-ray personally reviewed revealing findings suspicious for congestive failure - echocardiogram 12/22/16 shows hyperdynamic left ventricular systolic function with EF of 65-70% - BNP 454 - Lasix IV 40mg BID - IV methylprednisolone 60mg q12h - Duonebs scheduled - Supplemental oxygen to maintain O2 sats above 92% - Continue home bronchodilators - Monitor respiratory status - IS - Strict I&Os - Salt and fluid restricted diet Chest pain, unstable angina CAD s/p cardiac catheterization with implantation of bare metal stent 12/21/16 Atrial fibrillation - Consult cardiology - Initial troponin elevated 7.60 and CKMB 6.7 - Cycle cardiac enzymes - EKG personally reviewed - atrial fibrillation, no acute ischemic changes noted - Begin heparin drip - Continuous cardiac monitoring - Supplemental oxygen - Continue Brilinta - Continue isosorbide 50 mg daily - Aspirin daily - IV morphine when necessary chest pain CKD - creatinine likely near baseline - Avoid nephrotoxins - Follow BMP - renal diabetic diet DM - Accu-Chek - Insulin sliding scale - Continue home dose of insulin HTN HLD - Continue antihypertensive medications - resume home statin therapy - Obtain fasting lipid panel - Monitor BP Neuropathy - Resume home gabapentin LLE wound - Wound care consultation - IV cefepime and vancomycin - wound culture ordered Incidental finding of 1 cm irregular nodule right upper lobe - CT chest 12/23/16 - Recommend follow-up CT at approximately 3, 9 and 24 months and or contrast enhanced CT, PET and/or biopsy Hx of CAP Chronic indwelling Smith - continue GI prophylaxis - PPI DVT prophylaxis - Heparin drip The exam, history, and the medical decision-making described in the above note were completed with the assistance of the mid-level provider. I reviewed and agree with the findings presented. I attest that I had a [id number] encounter with the patient on the same day, and personally performed and documented my assessment and findings in the medical record. Code Status Full code Discussed Condition With ED physician, patient and physician assistant buyer Physician Certification 2 Midnight Certification Type: Admission for Inpatient Services Order for Inpatient Services The services are ordered in accordance with Medicare regulations or non- Medicare payer requirements, as applicable. In the case of services not specified as inpatient-only, they are appropriately provided as inpatient services in accordance with the 2-midnight benchmark. Estimated LOS (days): 3 3 days is the estimated time the patient will need to remain in the hospital, assuming treatment plan goals are met and no additional complications. Post-Hospital Plan: Not yet determined Problem Qualifiers (1) Congestive heart failure: Qualified Codes: I50.23 - Acute on chronic systolic (congestive) heart failure Shantal Lam Jan 09, 2017 19:05 Wilfredo Davis DO Jan 09, 2017 19:10
[2017-01-09] MEDS ORDERED: SULFAMETHOXAZOLE-TRIMETHOPRIM DS 800-160 MG TAB PO ONE (20:00)
[2017-01-09] MEDS: ASPIRIN 81 MG CHEW TAB PO SCH (20:53)
[2017-01-09] MEDS: FUROSEMIDE 40 MG/4 ML VIAL IV SCH (20:53)
[2017-01-09] MEDS: CEFEPIME INJ 1,000 MG in SODIUM CHLORIDE 0.9% INJ 100 ML IV SCH (20:54)
[2017-01-09] MEDS: methylPREDNISolone SOD SUCC 125 MG/2 ML VIAL IV PUSH SCH (20:54)
[2017-01-09] MEDS: SODIUM CHLORIDE 0.9% FLUSH 10 ML FLUSH IV FLUSH SCH (20:54)
[2017-01-09] MEDS ORDERED: SODIUM CHLORIDE 0.9% FLUSH 10 ML FLUSH IV FLUSH SCH (21:00)
[2017-01-09] MEDS: INSULIN HUMAN NPH 1,000 UNITS/10 ML VIAL SQ SCH (21:00)
[2017-01-09] MEDS: guaiFENesin E.R. 600 MG TAB PO SCH (21:00)
[2017-01-09] MEDS: INSULIN ASPART SUPPLEMENTAL SCALE SQ SCH (21:00)
[2017-01-09] MEDS: GABAPENTIN 400 MG CAP PO SCH (21:00)
[2017-01-09] MEDS: ATORVASTATIN 40 MG TAB PO SCH (21:00)
[2017-01-09] MEDS: BUDESONIDE-FORMOTEROL 160/4.5 MCG INHALER INH SCH (21:00)
[2017-01-09] MEDS: DOCUSATE SODIUM 50 MG/SENNA 8.6 MG TAB PO SCH (21:00)
[2017-01-09] MEDS: TICAGRELOR 90 MG TAB PO SCH (21:00)
[2017-01-09 21:46] LABS: CKMB 21.8 NG/ML (0.5-3.6)
[2017-01-09] MEDS ORDERED: VANCOMYCIN 1,500 MG/NS 500 ML IV SCH ×2 (22:00)
[2017-01-09 23:24] LABS: HEMATOCRIT 34.2 % (39.0-51.0); MEAN CELL VOLUME 86.7 FL (80.0-100.0); MEAN CORPUSCULAR HEMOGLOBIN 27.6 PG (27.0-34.0); MEAN CORPUSCULAR HGB CONC 31.8 % (32.0-36.0); PLATELET COUNT 154 TH/MM3 (150-450); RED BLOOD COUNT 3.95 MIL/MM3 (4.50-5.90); RED CELL DISTRIBUTION WIDTH 16.1 % (11.6-17.2); REVIEW FLAG FINAL; WHITE BLOOD COUNT 10.8 TH/MM3 (4.0-11.0)
--- NOTE | 2017-01-09 23:32 | EKG ---
Date Performed: 01/09/2017 Time Performed: 17:25:58 PTAGE: 86 years EKG: ATRIAL FIBRILLATION RIGHT BUNDLE BRANCH BLOCK ANTERIOR MYOCARDIAL INFARCTION ABNORMAL ECG PREVIOUS TRACING : 12/22/2016 05.31 Compared to prior tracing no significant change DOCTOR: Ralph Alamo Interpretating Date/Time 01/09/2017 23:31:21
[2017-01-09 23:34] LABS: APTT (PATIENT) 26.1 SEC (24.3-30.1)
[2017-01-10] VITALS (28 sets, daily range): BP systolic 112–158; BP diastolic 63–96; PULSE 70–121; RESP 20–22; TEMP 97.7–98.8; O2SAT 95–98
[2017-01-10] MEDS: ALPRAZolam 0.25 MG TAB PO PRN (00:25)
[2017-01-10] MEDS: hydrALAZINE HCL 50 MG TAB PO SCH ×4 (00:26→21:57)
[2017-01-10] MEDS: HEPARIN-D5W 25,000 U/250 ML 250 ML IV PRN ×2 (00:44→16:40)
[2017-01-10] MEDS: RESP: ALBUTEROL 2.5 MG/IPRATROPIUM 0.5 MG NEB (SCH) INH ×6 (01:29→20:20)
[2017-01-10] MEDS ORDERED: FUROSEMIDE 40 MG/4 ML VIAL IV PUSH ONE (01:30)
[2017-01-10] MEDS: CEFEPIME INJ 1,000 MG in SODIUM CHLORIDE 0.9% INJ 100 ML IV SCH ×3 (04:00→21:55)
[2017-01-10 04:27] LABS: AUTOMATED NEUTROPHIL # 9.9 TH/MM3 (1.8-7.7); BASOPHIL % 0.4 % (0.0-2.0); EOSINOPHIL % 0.1 % (0.0-4.0); HEMATOCRIT 33.8 % (39.0-51.0); HEMO FLAGS DIFF FINAL; LYMPH % 1.5 % (9.0-44.0); LYMPHOCYTE # 0.2 TH/MM3 (1.0-4.8); MEAN CELL VOLUME 88.5 FL (80.0-100.0); MEAN CORPUSCULAR HEMOGLOBIN 27.7 PG (27.0-34.0); MEAN CORPUSCULAR HGB CONC 31.3 % (32.0-36.0); MONO % 0.6 % (0.0-8.0); NEUT % 97.4 % (16.0-70.0); PLATELET COUNT 158 TH/MM3 (150-450); RED BLOOD COUNT 3.82 MIL/MM3 (4.50-5.90); RED CELL DISTRIBUTION WIDTH 16.3 % (11.6-17.2); WHITE BLOOD COUNT 10.2 TH/MM3 (4.0-11.0)
[2017-01-10 04:45] LABS: APTT (PATIENT) 48.6 SEC (24.3-30.1)
[2017-01-10 05:29] LABS: ALKALINE PHOSPHATASE 186 U/L (45-117); ALT (GPT) 66 U/L (12-78); ANION GAP 14 MEQ/L (5-15); AST (GOT) 48 U/L (15-37); BICARBONATE 22.3 MEQ/L (21.0-32.0); BLOOD UREA NITROGEN 46 MG/DL (7-18); CHLORIDE 101 MEQ/L (98-107); CREATINE KINASE 297 U/L (39-308); FREE T4 1.31 NG/DL (0.76-1.46); GLOMERULAR FILTRATION RATE 27 ML/MIN (>89); HDL CHOLESTEROL 69.4 MG/DL (40.0-60.0); LDL CHOLESTEROL 65 MG/DL (0-99); MAGNESIUM 2.1 MG/DL (1.5-2.5); POTASSIUM 5.1 MEQ/L (3.5-5.1); SODIUM (NA) 137 MEQ/L (136-145); TOTAL BILIRUBIN ADULT 0.6 MG/DL (0.2-1.0)
[2017-01-10] MEDS: GABAPENTIN 300 MG CAP PO SCH (06:00)
[2017-01-10] MEDS: ISOSORBIDE MONONITRATE 60 MG TAB PO SCH (07:19)
[2017-01-10] MEDS: FUROSEMIDE 40 MG/4 ML VIAL IV SCH ×2 (08:30→21:56)
[2017-01-10] MEDS: methylPREDNISolone SOD SUCC 125 MG/2 ML VIAL IV PUSH SCH ×2 (08:30→21:56)
[2017-01-10] MEDS: TICAGRELOR 90 MG TAB PO SCH ×2 (08:31→21:58)
[2017-01-10] MEDS: guaiFENesin E.R. 600 MG TAB PO SCH ×2 (08:31→21:56)
[2017-01-10] MEDS: ASPIRIN 81 MG CHEW TAB PO SCH (08:31)
[2017-01-10] MEDS: DOCUSATE SODIUM 50 MG/SENNA 8.6 MG TAB PO SCH ×2 (08:31→21:00)
[2017-01-10] MEDS: LACTOBACILLUS ACIDOPHILUS TAB PO SCH ×3 (08:34→17:00)
[2017-01-10] MEDS: METOPROLOL TARTRATE 50 MG TAB PO SCH ×2 (08:34→21:56)
--- NOTE | 2017-01-10 08:35 | HHI.PR ---
Subjective Remarks f/u; chest pain/elevated troponin in no acute distress. but with some sob and currently on oxygen via N/C. no chest pain. afebrile. d/w the RN at the bedside. Objective Vitals Vital Signs Date Time Temp Pulse Resp B/P (MAP) Pulse Ox O2 Delivery O2 Flow Rate FiO2 01/10/17 07:38 95 Nasal Cannula 2.00 01/10/17 05:00 118 01/10/17 04:37 98 Nasal Cannula 2.00 01/10/17 04:00 97.9 114 20 128/85 (99) 97 01/10/17 04:00 120 01/10/17 03:00 116 01/10/17 02:11 97 35 01/10/17 02:00 112 01/10/17 01:36 98 Nasal Cannula 4.00 01/10/17 01:00 116 01/10/17 00:00 98.5 121 22 158/96 (116) 97 01/10/17 00:00 110 01/09/17 23:00 120 01/09/17 22:00 120 01/09/17 22:00 97.5 114 22 169/85 (113) 97 01/09/17 18:00 89 18 173/116 (135) 99 Nasal Cannula 3.00 01/09/17 17:00 78 18 158/66 (96) 99 Nasal Cannula 3.00 01/09/17 16:46 120 18 193/144 (160) 99 Nasal Cannula 3.00 01/09/17 16:44 99 18 214/152 (172) 99 Nasal Cannula 3.00 01/09/17 16:18 99 18 197/93 (127) 99 Nasal Cannula 3.00 01/09/17 15:32 98.2 99 18 167/86 (113) 100 01/09/17 15:30 88 18 98 Room Air I/O 01/09/17 01/09/17 01/09/17 01/10/17 01/10/17 01/10/17 07:00 15:00 23:00 07:00 15:00 23:00 Intake Total 480 ml Output Total 550 ml Balance -70 ml Intake Oral 480 ml Output Urine Total 550 ml Result Diagram: 01/10/17 0414 01/10/17 0414 Imaging Last Impressions Chest X-Ray 01/09/17 1558 Signed Impressions: Service Date/Time: Monday, January 09, 2017 17:33 - CONCLUSION: Findings suspicious for congestive failure. Wilfredo Maddox MD FACR Toe X-Ray 01/09/17 0000 Signed Impressions: Service Date/Time: Monday, January 09, 2017 17:40 - CONCLUSION: Soft tissue swelling third digit without bony destruction. Wilfredo Maddox MD FACR Objective Remarks GENERAL: with some sob. CARDIOVASCULAR; tachycardic with irregular rhythm without murmurs, gallops, or rubs. RESPIRATORY: Clear to auscultation. Breath sounds equal bilaterally. No wheezes , rales, or rhonchi. GASTROINTESTINAL: Abdomen soft, non-tender, nondistended. Normal, active bowel sounds MUSCULOSKELETAL: Extremities with bilateral pedal edema NEURO: Alert & Oriented x4 to person, place, time, situation. Moves all ext x4 skin; some erythema over the left leg along with superficial ulcer on the left weeks Medications and IVs Current Medications Methylprednisolone Sodium Succinate (SoluMEDROL INJ) 125 mg ONCE ONCE IV PUSH Last administered on 01/09/17 17:08; Start 01/09/17 at 16:00; Stop 01/09/17 at 16:01; Status DC Albuterol/ Ipratropium (Duoneb Neb) 1 ampule Q15M INH Last administered on 01/09 16:27; Start 01/09/17 at 16:00; Stop 01/09/17 at 16:16; Status DC Furosemide (Lasix Inj) 40 mg ONCE ONCE IV PUSH Last administered on 01/09/17 18:55; Start 01/09/17 at 18:15; Stop 01/09/17 at 18:16; Status DC Trimethoprim/ Sulfamethoxazole (Bactrim Ds 800-160 Mg) 1 tab ONCE ONCE PO Last administered on 01/09/17 20:53; Start 01/09/17 at 20:00; Stop 01/09/17 at 20:01; Status DC Dextrose (D50w (Vial) Inj) 50 ml UNSCH PRN IV PUSH HYPOGLYCEMIA-SEE COMMENTS; Start 01/09/17 at 18:30 Glucagon (Glucagon Inj) 1 mg UNSCH PRN OTHER HYPOGLYCEMIA-SEE COMMENTS; Start 01/09/17 at 18:30 Insulin Aspart (NovoLOG SUPPLEMENTAL SCALE) 1 ACHS SLIDING SCALE SQ ; Start at 21:00 Sodium Chloride (NS Flush) 2 ml UNSCH PRN IV FLUSH FLUSH AFTER USING IV ACCESS ; Start 01/09/17 at 18:30; Stop 01/09/17 at 19:26; Status DC Sodium Chloride (NS Flush) 2 ml BID IV FLUSH ; Start 01/09/17 at 21:00; Stop at 21:00; Status DC Acetaminophen (Tylenol) 650 mg Q4H PRN PO TEMP > 100.4; Start 01/09/17 at 18:30 Ondansetron HCl (Zofran Inj) 4 mg Q6H PRN IVP NAUSEA OR VOMITING; Start at 18:30 Prochlorperazine (Compazine Supp) 25 mg Q12H PRN RECTAL NAUSEA OR VOMITING; Start 01/09/17 at 18:30 Acetaminophen (Tylenol) 650 mg Q6H PRN PO PAIN SCALE 1 TO 2; Start 01/09/17 at 18:30 Oxycodone/ Acetaminophen (Percocet 5-325 Mg) 1 tab Q6H PRN PO PAIN SCALE 3 TO 5; Start 01/09/17 at 18:30 Oxycodone/ Acetaminophen (Percocet 10-325 Mg) 1 tab Q6H PRN PO PAIN SCALE 6 TO 10; Start 01/09/17 at 18:30 Morphine Sulfate (Morphine Inj) 2 mg Q3H PRN IV PUSH Pain 3-5; if unable to take PO; Start 01/09/17 at 18:30 Morphine Sulfate (Morphine Inj) 4 mg Q3H PRN IV PUSH Pain 6-10;if unable to take PO; Start 01/09/17 at 18:30 Naloxone HCl (Narcan Inj) 0.4 mg UNSCH PRN IV PUSH SEE LABEL COMMENTS; Start at 18:30 Senna/Docusate Sodium (Ofe-Colace) 1 tab BID PO ; Start 01/09/17 at 21:00 Magnesium Hydroxide (Milk Of Magnesia Liq) 30 ml Q12H PRN PO MILD - MODERATE CONSTIPATION; Start 01/09/17 at 18:30 Sennosides (Senokot) 17.2 mg Q12H PRN PO MODERATE - SEVERE CONSTIPATION; Start 01/09/17 at 18:30 Bisacodyl (Dulcolax Supp) 10 mg DAILY PRN RECTAL SEVERE CONSITIPATION; Start at 18:30 Lactulose (Lactulose Liq) 30 ml DAILY PRN PO SEVERE CONSITIPATION; Start at 18:30 Furosemide (Lasix Inj) 40 mg Q12H IV Last administered on 01/09/17 20:53; Start 01/09/17 at 21:00 Vancomycin HCl 1000 mg/Sodium Chloride 250 ml @ 250 mls/hr Q12H IV ; Start at 18:30; Stop 01/09/17 at 20:22; Status DC Cefepime HCl 1000 mg/Sodium Chloride 100 ml @ 200 mls/hr Q8H IV Last administered on 01/09/17 20:54; Start 01/09/17 at 20:00 Pharmacy Profile Note 0 ml @ 0 mls/hr UNSCH OTHER ; Start 01/09/17 at 18:30 Albuterol/ Ipratropium (Duoneb Neb) 1 ampule Q4HR NEB INH Last administered on 01/10/17 07:37; Start 01/09/17 at 20:00 Albuterol Sulfate (Albuterol Neb) 2.5 mg Q2HR NEB PRN INH SHORTNESS OF BREATH; Start 01/09/17 at 18:45 Budesonide/ Formoterol Fumarate (Symbicort 160-4.5 Inh) 2 puff Q12HR INH ; Start 01/09/17 at 21:00 Methylprednisolone Sodium Succinate (SoluMEDROL INJ) 60 mg Q12H IV PUSH Last administered on 01/09/17 20:54; Start 01/09/17 at 21:00 Guaifenesin (Mucinex Er) 600 mg BID PO ; Start 01/09/17 at 21:00 Aspirin (Aspirin Chew) 81 mg DAILY PO Last administered on 01/09/17 20:53; Start 01/09/17 at 20:00 Atorvastatin Calcium (Lipitor) 40 mg HS PO ; Start 01/09/17 at 21:00 Gabapentin (Neurontin) 300 mg DAILY@0600 PO Last administered on 01/10/17 06: 00; Start 01/10/17 at 06:00 Hydralazine HCl (Apresoline) 50 mg Q8HR PO Last administered on 01/10/17 06:00 ; Start 01/09/17 at 22:00 Insulin Human NPH (NovoLIN N INJ) 22 units HS SQ ; Start 01/09/17 at 21:00 Isosorbide Mononitrate (Imdur) 60 mg DAILY@07 PO Last administered on 07:19; Start 01/10/17 at 07:00 Lactobacillus Acidophilus (Lactinex) 1 tab TIDAC PO ; Start 01/10/17 at 08:00 Ticagrelor (Brilinta) 90 mg BID PO ; Start 01/09/17 at 21:00 Tiotropium [place] (Spiriva Inh) 18 mcg DAILY INH ; Start 01/10/17 at 09:00; Stop 01/10/17 at 09:00; Status DC Pantoprazole Sodium (Protonix) 20 mg DAILY PO ; Start 01/10/17 at 09:00 Gabapentin (Neurontin) 400 mg HS PO ; Start 01/09/17 at 21:00 Nitroglycerin (Nitrostat Sl) 0.4 mg Q5M PRN SL CHEST PAIN; Start 01/09/17 at 18 :45 Heparin Sodium/ Dextrose 250 ml @ 16.8 mls/hr TITRATE PRN IV Coagulation management Last administered on 01/10/17 00:44; Start 01/09/17 at 19:00 Sodium Chloride (NS Flush) 2 ml BID IV FLUSH Last administered on 01/09/17 20: 54; Start 01/09/17 at 21:00 Sodium Chloride (NS Flush) 2 ml UNSCH PRN IV FLUSH FLUSH AFTER USING IV ACCESS ; Start 01/09/17 at 19:00 Alprazolam (Xanax) 0.25 mg Q8H PRN PO ANXIETY Last administered on 01/10/17 00 :25; Start 01/09/17 at 19:00 Vancomycin HCl 1500 mg/Sodium Chloride 515 ml @ 257.5 mls/ hr Q24H IV ; Start 01/09/17 at 22:00 Miscellaneous Information SPECIFIC LAB TO BE DRAWN:[facility] TR[facility] DATE TO BE DRVernell.. ONCE ONCE .XX ; Start 01/12/17 at 21:45; Stop 01/12/17 at 21:46 Furosemide (Lasix Inj) 40 mg ONCE ONCE IV PUSH Last administered on 9/21/17at 01:36; Start 01/10/17 at 01:30; Stop 01/10/17 at 01:31; Status DC Metoprolol Tartrate (Lopressor) 50 mg Q12HR PO ; Start 01/10/17 at 09:00 A/P Assessment and Plan A/P Questionable CHF exacerbation COPD exacerbation - secondary to medication noncompliance - Chest x-ray personally revealing findings suspicious for congestive failure - echocardiogram 12/22/16 shows hyperdynamic left ventricular systolic function with EF of 65-70% - BNP 454 - Lasix IV 40mg BID - IV methylprednisolone 60mg q12h - Duonebs scheduled - Supplemental oxygen to maintain O2 sats above 92% - Continue home bronchodilators - Monitor respiratory status - IS - Strict I&Os - Salt and fluid restricted diet Chest pain, unstable angina CAD s/p cardiac catheterization with implantation of bare metal stent 12/21/16 Atrial fibrillation - Consulted cardiology -continue heparin drip - Continuous cardiac monitoring - Supplemental oxygen - Continue Brilinta and aspirin - Continue isosorbide 50 mg daily - continue statin - IV morphine when necessary chest pain CKD - creatinine likely near baseline - Avoid nephrotoxins - Follow BMP - renal diabetic diet DM - Accu-Chek - Insulin sliding scale - Continue home dose of insulin HTN HLD - Continue antihypertensive medications - resume home statin therapy - Obtain fasting lipid panel - Monitor BP Neuropathy - Resume home gabapentin LLE wound - Wound care consultation - IV cefepime and vancomycin; will de-escalate the antibiotics soon if cultures negative -check venous doppler of the left leg - wound culture ordered Incidental finding of 1 cm irregular nodule right upper lobe - CT chest 12/23/16 - Recommend follow-up CT at approximately 3, 9 and 24 months and or contrast enhanced CT, PET and/or biopsy Hx of CAP Chronic indwelling [place] - continue GI prophylaxis - PPI DVT prophylaxis - Heparin drBob Snell MD Jan 10, 2017 08:35
--- NOTE | 2017-01-10 08:47 | MB ---
cc: MANOLO TILLMAN DATE OF CONSULTATION 01/10/2017 REASON FOR CONSULTATION This is a 42-year-old male who was admitted to the hospital with shortness of breath. He is somewhat of a poor historian, but has a history of coronary artery disease with PTCA and stenting of his LAD acutely three weeks ago in the hospital. At that time, he had a rather involved procedure with heavy thrombotic burden in his LAD. This was eventually restored. An echocardiogram at that time demonstrated an ejection fraction of 60-65%. He was eventually discharged and notes that his medical regimen was changed, although he is unaware of any of the names of his medications or specifically what was changed and what was not and it is only that Brilinta was added to his regimen which he thought may have contributed to his shortness of breath. I any event, the day before yesterday, he began having acute shortness of breath and had progressed to the point where came to the emergency department. A chest x-ray has revealed evidence for congestive failure. He has chronic lower extremity edema for which he has been on diuretics in the past and it is unclear whether these were continued as an outpatient or not. He did note prior to his episode, a twinge of chest discomfort which he noted was completely different from his heart attack. This was very short-lived and on a scale of 1-10 was probably somewhere around a 1. No palpitations have been present. He does note he has had chronic atrial fibrillation. He has had problems in the past tolerating Warfarin with hematuria, as well as hematochezia and this was discontinued and apparently no notable anticoagulants were started. We do note that he received a bare metal stent at his last catheterization in recognition of that problem. PAST MEDICAL HISTORY Otherwise been significant for questionable COPD. He is a former smoker, but stopped over 30 years ago. No cough or sputum production has been present. IMAGING It is noted above, his chest x-ray did demonstrate evidence for congestive failure. LABORATORY DATA Troponins were elevated initially at 7.60. A follow up dropped to 6.15 and a value today is 3.50. CPK is essentially normal at 296. BNP is mildly elevated at 454. White count is normal. He is mildly anemic with a hemoglobin of 10.1. ALLERGIES PENICILLIN AND HE NOTES TO WARFARIN, ALTHOUGH THAT IS MORE OF AN ADVERSE REACTION. PHYSICAL EXAM GENERAL: He is awake and alert. He is very pleasant and cooperative. VITAL SIGNS: Blood pressure 130/80, pulse is approximately 110-130 and irregular. NECK: There is no neck vein distension. CARDIOVASCULAR: Exam reveals an irregularly irregular rhythm. There is no significant murmur present. LUNGS: Reveal rales in both bases. No wheezes or rhonchi are present. ABDOMEN: Soft. No tenderness. There is no organomegaly. EXTREMITIES: Reveal +2 edema. Electrocardiogram demonstrates atrial fibrillation with right bundle branch block. There are no ST or T-wave changes and nonspecific T-wave changes noted on his prior EKG have resolved. ASSESSMENT The patient has congestive failure. . We will check a BMP tomorrow. I have ordered a repeat echocardiogram to reevaluate his ejection fraction. His ventricular response rate is fast and I have added Metoprolol 50 mg twice a day to his regimen to try to better control his rate which may have contributed to his failure. I feel his troponin elevations are probably secondary to his OR three weeks ago as well as some demand mediated response to his congestive failure. MD RENETTA Fenton/JACOBO /8:01 AM /8:30 AM
[2017-01-10] MEDS ORDERED: PANTOPRAZOLE SOD 20 MG DELAYED RELEASE TAB PO SCH (09:00)
[2017-01-10] MEDS: SODIUM CHLORIDE 0.9% FLUSH 10 ML FLUSH IV FLUSH SCH ×2 (09:00→21:59)
[2017-01-10] MEDS ORDERED: TIOTROPIUM BROMIDE 18 MCG INH INH SCH (09:00)
--- NOTE | 2017-01-10 09:32 | RADRPT ---
EXAM DATE/TIME: 01/10/2017 08:44 [facility] COMPARISON: No previous studies available for comparison. INDICATIONS : Left leg swelling. MEDICAL HISTORY : Myocardial infarction. Congestive heart failure. Hypercholesterolemia. Seizures. Bilateral feet ne uropathy. Coronary artery disease. Afib. Chest pain. HTN. COPD. Pneumonia. Sleep apnea. Dyspnea. Ulce r. GERD. Prostate cancer. Arthritis. Diabetes. Anemia. Depression. Cdiff. Anticoagulant therapy, Hepa rin. SURGICAL HISTORY : Tonsillectomy. Coronary artery stent. Appendectomy. Cardiac cath. Prostatectomy. Suprapubic cath. Le ft middle finger repair. Radiation therapy. Blood transfusions. ENCOUNTER: Initial ACUITY: 2 weeks PAIN SCORE: 0/10 LOCATION: Left leg. TECHNIQUE: Venous ultrasound of the leg was performed from the inguinal ligament to the proximal calf. Real-stacey e, color Doppler and spectral tracing, compression and augmentation techniques were used. FINDINGS: There is normal compressibility of the deep venous system from the inguinal region to the proximal ca lf. No echogenic clot is seen in the lumen of the common femoral, femoral, popliteal, and posterior tibial veins. There is a normal response of the venous system to proximal and distal augmentation an d respiration. CONCLUSION: 1. Negative left lower extremity DVT study. A Clay's cyst measuring 2.5 x 4.7 x 1 cm. Carlitos Corona MD on January 10, 2017 at 9:30 Board Certified Radiologist. This report was verified electronically.
[2017-01-10] MEDS: BUDESONIDE-FORMOTEROL 160/4.5 MCG INHALER INH SCH ×2 (09:39→21:00)
[2017-01-10] MEDS: INSULIN ASPART SUPPLEMENTAL SCALE SQ SCH ×4 (09:39→21:00)
[2017-01-10] MEDS ORDERED: VANCOMYCIN 1,500 MG/NS 500 ML IV ONE ×2 (11:00)
[2017-01-10 11:20] LABS: HEMOGLOBIN A1a 1.4 %; HEMOGLOBIN Ao 76.1 %; HEMOGLOBIN LA1C 3.8 %; HEMOGLOBIN P3 5.6 %
[2017-01-10 13:11] LABS: APTT (PATIENT) 123.1 SEC (24.3-30.1)
--- NOTE | 2017-01-10 14:46 | PD.WCN.NOT ---
Wound Consult Description: Received consult for L foot wound management from Doctor Davis Communicated with: EMIL Wasserman [facility] and Doctor Alan Recommendation: Please cleanse wound to L weeks with normal saline or wound cleanser and apply xeroform in single layer just over wound bed, Cover with dry 4 x4 gauze pad, secured with rolled gauze, tape and stockinette change dressing every other day or PRN if saturated or dislodged. Please leave wounds to L second toe and L third toe open to air. May paint with betadine BID until seen by podiatry Additional Information: Patient seen on [facility] for evaluation of L foot wound management. Patient is laying in bed during assessment. Patient has very sensitive skin. Gauze dressing is in place over L weeks secured with transparent tape. Peeled back 4x4 gauze dressing in place to reveal full thickness wound with ~80% dry red tissue and ~20% dry yellow tissue. Wound has no active drainage or odor.Gauze dressing placed back over wound periwound is unremarkable. L second toe is noted with a deflated dry dark red blister. Left second toe wound open to air. L third toe presents with edema and small ulcer. ulcer noted with ~60% yellow pus and ~40% dark red scab. Periwound presents with erythema, induration, slight fluctuance and heat. Left ulcer open to air. Patient is a diabetic and third L toe is presenting with s/s of infection. Patient needs Podiatry consult. [facility] Jan 10, 2017 14:46
[2017-01-10 17:12] LABS: APTT (PATIENT) 64.3 SEC (24.3-30.1)
--- NOTE | 2017-01-10 17:35 | ECHRPT ---
Indication: EVALUATE EF, HEART FAILURE CONCLUSIONS Normal left ventricular size. Mild concentric left ventricular hypertrophy. The left ventricular systolic function is hyperdynamic with an estimated ejection fraction in the ra nge of 65- 70%. This study was not technically sufficient to allow for evaluation of left ventricular diastolic func tion. The right ventricle is moderately dilated. The right ventricular systoilc function is mildly decreased. The left atrial size is moderately dilated. The right atrial size is moderate to severely dilated. The interatrial septum not well visualized. Mild thickening of the mitral valve leaflets. [id number]-gfysrlef mitral valve regurgitation. Trace aortic valve regurgitation. No aortic valve stenosis. Annular dilatation of the tricuspid valve. There is moderate to severe tricuspid valve regurgitation. There is estimated moderate pulmonary hypertension present (range 50-60 mmHg). The inferior vena cava was not well visualized. A prominent epicardial fat pad is present. BP: / HR: Rhythm: Atrial fibrillation, Atrial flut ter MEASUREMENTS (Male / Female) Normal Values Technical Quality:Poor 2D ECHO LV Diastolic Diameter PLAX 4.7 cm 4.2 - 5.9 / 3.9 - 5.3 cm LV Systolic Diameter PLAX 3.2 cm IVS Diastolic Thickness 1.2 cm 0.6 - 1.0 / 0.6 - 0.9 cm LVPW Diastolic Thickness 1.2 cm 0.6 - 1.0 / 0.6 - 0.9 cm LV Relative Wall Thickness 0.5 LVOT Diameter 2.1 cm Aortic Root Diameter 3.5 cm LA Systolic Diameter LX 4.6 cm 3.0 - 4.0 / 2.7 - 3.8 cm M-MODE AV Cusp Separation MM 2.2 cm DOPPLER AV Peak Velocity 111.4 cm/s AV Peak Gradient 5.0 mmHg AV Mean Gradient 3.0 mmHg AV Velocity Time Integral 19.3 cm LVOT Peak Velocity 44.4 cm/s LVOT Peak Gradient 0.8 mmHg LVOT Velocity Time Integral 7.7 cm AV Area Cont Eq vti 1.4 cm AV Area Cont Eq pk 1.4 cm Mitral E Point Velocity 60.0 cm/s Mitral A Point Velocity 65.2 cm/s Mitral E to A Ratio 0.9 LV E' Lateral Velocity 8.5 cm/s Mitral E to LV E' Lateral Ratio 7.1 LV E' Septal Velocity 6.8 cm/s Mitral E to LV E' Septal Ratio 8.8 TR Peak Velocity 324.0 cm/s TR Peak Gradient 42.0 mmHg Right Atrial Pressure 10.0 mmHg Pulmonary Artery Systolic Pressu 52.0 mmHg Right Ventricular Systolic Press 52.0 mmHg PV Peak Velocity 54.4 cm/s PV Peak Gradient 1.2 mmHg FINDINGS LEFT VENTRICLE Normal left ventricular size. Mild concentric left ventricular hypertrophy. The left ventricular systolic function is hyperdynamic with an estimated ejection fraction in the ra nge of 65- 70%. This study was not technically sufficient to allow for evaluation of left ventricular diastolic func tion. RIGHT VENTRICLE The right ventricle is moderately dilated. The right ventricular systoilc function is mildly decreased. LEFT ATRIUM The left atrial size is moderately dilated. RIGHT ATRIUM The right atrial size is moderate to severely dilated. ATRIAL SEPTUM The interatrial septum not well visualized. AORTA The aortic root and proximal ascending aorta are normal in size on limited imaging. MITRAL VALVE Mild thickening of the mitral valve leaflets. [id number] mitral valve regurgitation. AORTIC VALVE Trileaflet aortic valve. Trace aortic valve regurgitation. No aortic valve stenosis. TRICUSPID VALVE Annular dilatation of the tricuspid valve. There is moderate to severe tricuspid valve regurgitation. There is estimated moderate pulmonary hypertension present (range 50-60 mmHg). PULMONARY VALVE No pulmonary valve regurgitation or stenosis. VESSELS The inferior vena cava was not well visualized. PERICARDIUM A prominent epicardial fat pad is present. Marin Frazier MD, FACC (Electronically Signed) Final Date:10 January 2017 17:34
[2017-01-10] MEDS: ONDANSETRON HCL 4 MG/2 ML VIAL IVP PRN (19:00)
[2017-01-10] MEDS: ATORVASTATIN 40 MG TAB PO SCH ×2 (21:00→21:57)
[2017-01-10] MEDS: INSULIN HUMAN NPH 1,000 UNITS/10 ML VIAL SQ SCH (21:00)
[2017-01-10] MEDS: GABAPENTIN 400 MG CAP PO SCH (21:58)
[2017-01-10] MEDS ORDERED: ALUMINUM/MAGNESIUM/SIMETH 30 ML CUP PO ONE (22:45)
[2017-01-10 23:43] LABS: APTT (PATIENT) 77.7 SEC (24.3-30.1)
[2017-01-11] VITALS (24 sets, daily range): BP systolic 119–135; BP diastolic 68–85; PULSE 70–96; RESP 18; TEMP 97.3–98.7; O2SAT 95–99
[2017-01-11] MEDS: ONDANSETRON HCL 4 MG/2 ML VIAL IVP PRN
[2017-01-11] MEDS ORDERED: PANTOPRAZOLE INJ 80 MG in SODIUM CHLORIDE 0.9% INJ 35 ML IV ONE (01:49)
[2017-01-11] MEDS: PANTOPRAZOLE INJ 80 MG in SODIUM CHLORIDE 0.9% INJ 100 ML IV SCH ×3 (02:00→22:11)
[2017-01-11 02:43] LABS: HEMATOCRIT 29.1 % (39.0-51.0); REVIEW FLAG FINAL
[2017-01-11] MEDS: RESP: ALBUTEROL 2.5 MG/IPRATROPIUM 0.5 MG NEB (SCH) INH ×6 (03:03→19:19)
[2017-01-11] MEDS: CEFEPIME INJ 1,000 MG in SODIUM CHLORIDE 0.9% INJ 100 ML IV SCH (04:27)
[2017-01-11] MEDS: ISOSORBIDE MONONITRATE 60 MG TAB PO SCH (06:38)
[2017-01-11] MEDS: hydrALAZINE HCL 50 MG TAB PO SCH ×3 (06:38→22:11)
[2017-01-11] MEDS: GABAPENTIN 300 MG CAP PO SCH (06:38)
[2017-01-11 07:29] LABS: HEMATOCRIT 29.5 % (39.0-51.0); REVIEW FLAG FINAL
[2017-01-11 07:36] LABS: APTT (PATIENT) 25.3 SEC (24.3-30.1)
[2017-01-11] MEDS: LACTOBACILLUS ACIDOPHILUS TAB PO SCH ×3 (08:00→16:50)
[2017-01-11] MEDS: INSULIN ASPART SUPPLEMENTAL SCALE SQ SCH ×5 (08:00→21:55)
--- NOTE | 2017-01-11 08:00 | PD.CONS ---
HPI History of Present Illness This is a 86 year old male who presented to the emergency room with shortness of breath and chest discomfort. He was recently hospitalized for STEMI, bronchitis, acute kidney injury and had a cardiac catheterization (12/21/16)----> acute thrombotic occlusion of the mid and distal left anterior descending coronary artery, successful rheolytic thrombectomy of the left anterior descending coronary artery, successful percutaneous intervention with bare metal stents to the mid and distal left anterior descending coronary artery. He was discharged on Aspirin and Brilinta for his coronary artery disease and Prednisone for bronchitis. He was admitted for congestive heart failure. Cardiology is following and feel that his elevated troponins are secondary to his recent RI 3 weeks ago and some demand mediated response to his congestive heart failure. GI has been consulted for upper gastrointestinal bleeding. Overnight, he developed severe heartburn that was a burning in his epigastric area radiating up his esophagus and shortly after started vomiting a large amount of dark red blood. He states this lasted for about 2-3 hours and that he had to empty his basin about 3 times- each time with a large amount of blood. He also complains of a pressure/dull ache in his left upper quadrant that radiates to his epigastric area. He had 2 bowel movements overnight, but states he did not see them and does not know if they were dark or bloody. He denies any history of peptic ulcer disease. He does not believe he has had an EGD. He reports that he had a colonoscopy many years ago. He does not take any ibuprofen at home. He reports that he has been having a lot of "stomach issues" and taking a lot of Maalox at home for the past few weeks. (Fabby Lo) PFSH Past Medical History CAD, STEMI, s/p recent cardiac cath with bare-metal stent Atrial fibrillation Hypertension COPD Chronic kidney disease stage III Diabetes mellitus Dyslipidemia Urinary retention/Chronic smith Questionable history of CHF Neuropathy Prostate cancer CDiff colitis Bronchitis Past Surgical History Recent cardiac catheterization with implantation of bare-metal stent Prostate surgery Appendectomy Removal of nodule from let wrist Tonsillectomy Colonoscopy Cystoscopy (Fabby Lo) Coded Allergies: penicillin G (Unverified Allergy, Severe, 12/05/16) warfarin (Unverified Allergy, Severe, 12/05/16) Medications Allergies Coded Allergies Type Severity Reaction Last Updated Verified penicillin G Allergy Severe 12/05/16 No warfarin Allergy Severe 12/05/16 No Active Scripts Medications Dose Route/Sig Max Daily Dose Days Date Category Dose Instructions Aspirin Low Strength (Aspirin) 81 Mg Chew 81 Mg PO DAILY 30 01/01/17 Rx Atorvastatin (Atorvastatin Calcium) 40 Mg Tab 40 Mg PO HS 30 01/01/17 Rx Brilinta (Ticagrelor) 90 Mg Tab 90 Mg PO BID 30 01/01/17 Rx Symbicort Inh (Budesonide/Formoterol Fumarate) 160-4.5 Mcg/Act Aero 2 Puff INH Q12HR 01/01/17 Rx Furosemide 40 Mg Tab 40 Mg PO DAILY 30 01/01/17 Rx Hydralazine HCl 50 Mg Tablet 50 Mg PO Q8HR 30 01/01/17 Rx Lactobacillus Acidophilus 1 Billion Cell Tab 1 Tab PO TIDAC 01/01/17 Rx Isosorbide Mononitrate ER (Isosorbide Mononitrate) 60 Mg Tab 60 Mg PO DAILY@07 12/23/16 Rx Spiriva Handihaler (Tiotropium Inh) 18 Mcg Cap 18 Mcg INH DAILY 08/06/16 Reported 1 capsule = 18 mcg Omeprazole 20 Mg Cap 20 Mg PO AC BREAKFAST 08/06/16 Reported Novolog Inj (Insulin Aspart) 100 Unit/Ml Inj 12 SQ TIDAC 08/06/16 Reported Novolin N Inj (Insulin Human NPH) 1,000 Unit/10 Ml Vial 22 Units SQ HS 08/06/16 Reported Gabapentin 400 Mg Cap 400 Cap PO HS 08/06/16 Reported Gabapentin 300 Mg Cap 300 Mg PO DAILY@0600 08/06/16 Reported Proair Respiclick Inh (Albuterol Sulfate) 90 Mcg/Act Aerp 1 Puff INH Q4H PRN 08/06/16 Reported Family History Father from tuberculosis Social History Patient has a remote history of tobacco use of 4 packs per day but states he quit more than 40 years ago. Patient denies any alcohol use or illicit drug use. (Fabby Lo) Review of Systems Constitutional: COMPLAINS OF: Fatigue, DENIES: Fever, Chills Respiratory: COMPLAINS OF: Shortness of breath, DENIES: Cough Cardiovascular: COMPLAINS OF: Chest pain, Lower Extremity Edema Gastrointestinal: COMPLAINS OF: Abdominal pain, Nausea, Vomiting, Heartburn, DENIES: Black stools, Bloody stools, Constipation, Diarrhea Musculoskeletal: COMPLAINS OF: Joint pain Integumentary: COMPLAINS OF: Abnormal pigmentation Hematologic/lymphatic: COMPLAINS OF: Bruising Neurologic: DENIES: Headache Psychiatric: DENIES: Confusion (Fabby Lo) GI Exam Vitals I&O Vital Signs Date Time Temp Pulse Resp B/P (MAP) Pulse Ox O2 Delivery O2 Flow Rate FiO2 01/11/17 07:28 96 Nasal Cannula 01/11/17 06:00 76 01/11/17 05:00 81 01/11/17 04:00 74 01/11/17 03:00 70 01/11/17 03:00 97.7 78 18 119/68 (85) 95 01/11/17 02:00 70 01/11/17 01:00 78 01/11/17 00:00 80 01/10/17 23:00 78 01/10/17 23:00 97.7 85 20 138/83 (101) 95 01/10/17 22:00 76 01/10/17 21:00 76 01/10/17 20:20 97 Nasal Cannula 2.00 01/10/17 20:00 70 01/10/17 19:00 97.7 71 20 113/71 (85) 98 01/10/17 19:00 76 01/10/17 18:13 75 01/10/17 17:19 77 01/10/17 16:45 76 01/10/17 15:24 97.8 91 22 134/86 (102) 97 01/10/17 15:00 84 01/10/17 14:00 76 01/10/17 13:00 112 01/10/17 12:00 84 01/10/17 11:59 97.7 90 22 112/63 (79) 96 01/10/17 11:00 78 01/10/17 08:14 98.8 110 22 137/85 (102) 97 01/10/17 08:00 110 I/O 01/10/17 01/10/17 01/10/17 01/11/17 01/11/17 01/11/17 07:00 15:00 23:00 07:00 15:00 23:00 Intake Total 480 ml 760 ml 240 ml Output Total 550 ml 600 ml 250 ml Balance -70 ml 160 ml -10 ml Intake Oral 480 ml 760 ml 240 ml Output Urine Total 550 ml 600 ml 250 ml # Bowel Movements 3 Imaging Last Impressions Lower Extremity Ultrasound 01/10/17 0000 Signed Impressions: Service Date/Time: December 08:44 - CONCLUSION: 1. Negative left lower extremity DVT study. A Clay's cyst measuring 2.5 x 4.7 x 1 cm. Carlitos Corona MD Chest X-Ray 01/09/17 1558 Signed Impressions: Service Date/Time: Monday, January 09, 2017 17:33 - CONCLUSION: Findings suspicious for congestive failure. Wilfredo Maddox MD FACR Toe X-Ray 01/09/17 0000 Signed Impressions: Service Date/Time: Monday, January 09, 2017 17:40 - CONCLUSION: Soft tissue swelling third digit without bony destruction. Wilfredo Maddox MD FACR Laboratory Test 01/10/17 12:20 01/10/17 16:36 01/10/17 23:14 01/11/17 02:15 Activated Partial Thromboplast Time 123.1 SEC 64.3 SEC 77.7 SEC Hemoglobin 9.4 GM/DL Hematocrit 29.1 % Test 01/11/17 07:03 Hemoglobin 9.6 GM/DL Hematocrit 29.5 % Activated Partial Thromboplast Time 25.3 SEC Date/Time Source Procedure Growth Status 01/09/17 20:55 Blood Peripheral Aerobic Blood Culture - Preliminary NO GROWTH IN 1 DAY Resulted 01/09/17 20:55 Blood Peripheral Anaerobic Blood Culture - Preliminary NO GROWTH IN 1 DAY Resulted 01/09/17 16:15 Urine Random Urine Urine Culture - Preliminary Gram Negative Alex Resulted Physical Examination HEENT: Normocephalic; atraumatic; no jaundice. CHEST: Resp. even/unlabored. Diminished. CARDIAC: Irregular ABDOMEN: Soft, obese, nondistended, LUQ/Epigastric tenderness no hepatosplenomegaly; bowel sounds are present in all four quadrants. EXTREMITIES: Generalized edema. 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 (Fabby Lo) Assessment and Plan Plan ASSESSMENT: - Upper GIB, Hematemesis. Pt with recent STEMI, S/P Bare metal stent (12/21). Discharged home on Brilinta, ASA, Prednisone. States he has been having alot of "stomach issues" since he went home and has been taking Maalox. Last night he started vomiting dark red blood (large amount)- multiple episodes for 2-3 hours. He has burning epigastric pain radiating up his esophagus, and a dull ache LUQ---> epigastric area. Denies any hx of PUD. Never had an EGD. Last had ASA/Brilinta last night. HH 10.3/32.1----> 9.6/29.5. Protonix Gtt. Hold Brilinta and ASA for now. Plan for EGD today. - Anemia, acute blood loss. HH 10.3/32.1----> 9.6/29.5. - Abdominal pain, n/v, reflux. PPI - CHF, CAD with recent STEMI, Atrial fibrillation. S/P cardiac catheterization (12/21/16)----> acute thrombotic occlusion of the mid and distal left anterior descending coronary artery, successful rheolytic thrombectomy of the left anterior descending coronary artery, successful percutaneous intervention with bare metal stents to the mid and distal left anterior descending coronary artery. He was discharged on Aspirin and Brilinta. Cardiology following, feels that his elevated troponins are secondary to his recent RI 3 weeks ago and some demand mediated response to his congestive heart failure. - COPD Exacerbation, Bronchitis. Steroids, Abx, Nebs per attending. - Acute on CKD, per renal. Creat 2.33. - DM, HTN, Hyperlipidemia, LLE wound per attending. PLAN: - Plan for egd today - Obtain consents - NPO - Hold ASA/Brilinta for now - Protonix Gtt - Serial HH - Transfuse as necessary - CBC, BMP in am - Supportive care - Further recommendations to follow based on results of above - Pt seen and examined by Dr. Huerta and myself and this note is written on his behalf (Fabby Lo) Physician Comments Patient seen and examined Agree with above Continue with current supportive care Monitor labs Plan for an EGD today (Zheng Huerta MD) Fabby Lo Jan 11, 2017 08:00 Zheng Huerta MD Jan 11, 2017 13:04
[2017-01-11 08:02] LABS: BICARBONATE 26.6 MEQ/L (21.0-32.0)
--- NOTE | 2017-01-11 08:22 | PD.CARD.PN ---
Subjective Subjective Remarks Breathing better but developednausea and vomiting with mid hematemesis. No abdominal pain. Creatinine elevated. HR controlled Objective Vital Signs / I&O Vital Signs Date Time Temp Pulse Resp B/P (MAP) Pulse Ox O2 Delivery O2 Flow Rate FiO2 01/11/17 07:28 96 Nasal Cannula 01/11/17 06:00 76 01/11/17 05:00 81 01/11/17 04:00 74 01/11/17 03:00 70 01/11/17 03:00 97.7 78 18 119/68 (85) 95 01/11/17 02:00 70 01/11/17 01:00 78 01/11/17 00:00 80 01/10/17 23:00 78 01/10/17 23:00 97.7 85 20 138/83 (101) 95 01/10/17 22:00 76 01/10/17 21:00 76 01/10/17 20:20 97 Nasal Cannula 2.00 01/10/17 20:00 70 01/10/17 19:00 97.7 71 20 113/71 (85) 98 01/10/17 19:00 76 01/10/17 18:13 75 01/10/17 17:19 77 01/10/17 16:45 76 01/10/17 15:24 97.8 91 22 134/86 (102) 97 01/10/17 15:00 84 01/10/17 14:00 76 01/10/17 13:00 112 01/10/17 12:00 84 01/10/17 11:59 97.7 90 22 112/63 (79) 96 01/10/17 11:00 78 I/O 01/10/17 01/10/17 01/10/17 01/11/17 01/11/17 01/11/17 07:00 15:00 23:00 07:00 15:00 23:00 Intake Total 480 ml 760 ml 240 ml Output Total 550 ml 600 ml 250 ml Balance -70 ml 160 ml -10 ml Intake Oral 480 ml 760 ml 240 ml Output Urine Total 550 ml 600 ml 250 ml # Bowel Movements 3 Physical Exam Lungs clear irregular rhythm @ 80 Abd soft Laboratory Laboratory Tests Test 01/10/17 12:20 01/10/17 16:36 01/10/17 23:14 01/11/17 02:15 Activated Partial Thromboplast Time 123.1 SEC 64.3 SEC 77.7 SEC Hemoglobin 9.4 GM/DL Hematocrit 29.1 % Test 01/11/17 07:03 Hemoglobin 9.6 GM/DL Hematocrit 29.5 % Activated Partial Thromboplast Time 25.3 SEC Blood Urea Nitrogen 72 MG/DL Creatinine 3.34 MG/DL Random Glucose 203 MG/DL Calcium Level 8.2 MG/DL Sodium Level 137 MEQ/L Potassium Level 5.0 MEQ/L Chloride Level 102 MEQ/L Carbon Dioxide Level 26.6 MEQ/L Anion Gap 8 MEQ/L Estimat Glomerular Filtration Rate 18 ML/MIN Random Vancomycin Level 13.4 COMMENT Assessment and Plan Assessment and Plan CHF clinically resolved. Will d/c lasix and check BMp in AM. Recheck Cxr and BNP A fib rate controlled on metoprolol will continue Suggest GI consult- will hold breakfast this morning Kenji Rodríguez MD Jan 11, 2017 08:22
--- NOTE | 2017-01-11 08:50 | HHI.PR ---
Subjective Remarks f/u; chest pain in no acute distress. however is uncomfortable with some abdominal pain and nausea. has some hematemesis over night and still complaining of nausea. no chest pain this morning. d/w the RN at the bedside. Objective Vitals Vital Signs Date Time Temp Pulse Resp B/P (MAP) Pulse Ox O2 Delivery O2 Flow Rate FiO2 01/11/17 08:00 82 01/11/17 07:28 96 Nasal Cannula 01/11/17 07:00 98.1 79 18 124/71 (88) 97 01/11/17 07:00 78 01/11/17 06:00 76 01/11/17 05:00 81 01/11/17 04:00 74 01/11/17 03:00 70 01/11/17 03:00 97.7 78 18 119/68 (85) 95 01/11/17 02:00 70 01/11/17 01:00 78 01/11/17 00:00 80 01/10/17 23:00 78 01/10/17 23:00 97.7 85 20 138/83 (101) 95 01/10/17 22:00 76 01/10/17 21:00 76 01/10/17 20:20 97 Nasal Cannula 2.00 01/10/17 20:00 70 01/10/17 19:00 97.7 71 20 113/71 (85) 98 01/10/17 19:00 76 01/10/17 18:13 75 01/10/17 17:19 77 01/10/17 16:45 76 01/10/17 15:24 97.8 91 22 134/86 (102) 97 01/10/17 15:00 84 01/10/17 14:00 76 01/10/17 13:00 112 01/10/17 12:00 84 01/10/17 11:59 97.7 90 22 112/63 (79) 96 01/10/17 11:00 78 I/O 01/10/17 01/10/17 01/10/17 01/11/17 01/11/17 01/11/17 07:00 15:00 23:00 07:00 15:00 23:00 Intake Total 480 ml 760 ml 240 ml Output Total 550 ml 600 ml 250 ml 0 ml Balance -70 ml 160 ml -10 ml 0 ml Intake Oral 480 ml 760 ml 240 ml Output Urine Total 550 ml 600 ml 250 ml Drainage Total 0 ml # Bowel Movements 3 Result Diagram: 01/11/17 0703 01/11/17 0703 Imaging Last Impressions Lower Extremity Ultrasound 01/10/17 0000 Signed Impressions: Service Date/Time: December 08:44 - CONCLUSION: 1. Negative left lower extremity DVT study. A Clay's cyst measuring 2.5 x 4.7 x 1 cm. Carlitos Corona MD Chest X-Ray 01/09/17 1558 Signed Impressions: Service Date/Time: Monday, January 09, 2017 17:33 - CONCLUSION: Findings suspicious for congestive failure. Wilfredo Maddox MD FACR Toe X-Ray 01/09/17 0000 Signed Impressions: Service Date/Time: Monday, January 09, 2017 17:40 - CONCLUSION: Soft tissue swelling third digit without bony destruction. Wilfredo Maddox MD FACR Objective Remarks GENERAL: in no acute distress but seems uncomfortable with nausea CARDIOVASCULAR; tachycardic with irregular rhythm without murmurs, gallops, or rubs. RESPIRATORY: Clear to auscultation. Breath sounds equal bilaterally. No wheezes , rales, or rhonchi. GASTROINTESTINAL: Abdomen soft, mild generalized tenderness and distended. Normal, active bowel sounds MUSCULOSKELETAL: erythema and swelling of the left third toe. NEURO: Alert & Oriented x4 to person, place, time, situation. Moves all ext x4 skin; some erythema over the left leg along with superficial ulcer on the left weeks Medications and IVs Current Medications Methylprednisolone Sodium Succinate (SoluMEDROL INJ) 125 mg ONCE ONCE IV PUSH Last administered on 01/09/17 17:08; Start 01/09/17 at 16:00; Stop 01/09/17 at 16:01; Status DC Albuterol/ Ipratropium (Duoneb Neb) 1 ampule Q15M INH Last administered on 01/09 16:27; Start 01/09/17 at 16:00; Stop 01/09/17 at 16:16; Status DC Furosemide (Lasix Inj) 40 mg ONCE ONCE IV PUSH Last administered on 01/09/17 18:55; Start 01/09/17 at 18:15; Stop 01/09/17 at 18:16; Status DC Trimethoprim/ Sulfamethoxazole (Bactrim Ds 800-160 Mg) 1 tab ONCE ONCE PO Last administered on 01/09/17 20:53; Start 01/09/17 at 20:00; Stop 01/09/17 at 20:01; Status DC Dextrose (D50w (Vial) Inj) 50 ml UNSCH PRN IV PUSH HYPOGLYCEMIA-SEE COMMENTS; Start 01/09/17 at 18:30 Glucagon (Glucagon Inj) 1 mg UNSCH PRN OTHER HYPOGLYCEMIA-SEE COMMENTS; Start 01/09/17 at 18:30 Insulin Aspart (NovoLOG SUPPLEMENTAL SCALE) 1 ACHS SLIDING SCALE SQ Last administered on 01/10/17 21:00; Start 01/09/17 at 21:00 Sodium Chloride (NS Flush) 2 ml UNSCH PRN IV FLUSH FLUSH AFTER USING IV ACCESS ; Start 01/09/17 at 18:30; Stop 01/09/17 at 19:26; Status DC Sodium Chloride (NS Flush) 2 ml BID IV FLUSH ; Start 01/09/17 at 21:00; Stop at 21:00; Status DC Acetaminophen (Tylenol) 650 mg Q4H PRN PO TEMP > 100.4; Start 01/09/17 at 18:30 Ondansetron HCl (Zofran Inj) 4 mg Q6H PRN IVP NAUSEA OR VOMITING Last administered on 01/11/17 00:00; Start 01/09/17 at 18:30 Prochlorperazine (Compazine Supp) 25 mg Q12H PRN RECTAL NAUSEA OR VOMITING; Start 01/09/17 at 18:30 Acetaminophen (Tylenol) 650 mg Q6H PRN PO PAIN SCALE 1 TO 2; Start 01/09/17 at 18:30 Oxycodone/ Acetaminophen (Percocet 5-325 Mg) 1 tab Q6H PRN PO PAIN SCALE 3 TO 5; Start 01/09/17 at 18:30 Oxycodone/ Acetaminophen (Percocet 10-325 Mg) 1 tab Q6H PRN PO PAIN SCALE 6 TO 10; Start 01/09/17 at 18:30 Morphine Sulfate (Morphine Inj) 2 mg Q3H PRN IV PUSH Pain 3-5; if unable to take PO; Start 01/09/17 at 18:30 Morphine Sulfate (Morphine Inj) 4 mg Q3H PRN IV PUSH Pain 6-10;if unable to take PO; Start 01/09/17 at 18:30 Naloxone HCl (Narcan Inj) 0.4 mg UNSCH PRN IV PUSH SEE LABEL COMMENTS; Start at 18:30 Senna/Docusate Sodium (Ofe-Colace) 1 tab BID PO Last administered on 08:31; Start 01/09/17 at 21:00 Magnesium Hydroxide (Milk Of Magnesia Liq) 30 ml Q12H PRN PO MILD - MODERATE CONSTIPATION; Start 01/09/17 at 18:30 Sennosides (Senokot) 17.2 mg Q12H PRN PO MODERATE - SEVERE CONSTIPATION; Start 01/09/17 at 18:30 Bisacodyl (Dulcolax Supp) 10 mg DAILY PRN RECTAL SEVERE CONSITIPATION; Start at 18:30 Lactulose (Lactulose Liq) 30 ml DAILY PRN PO SEVERE CONSITIPATION; Start at 18:30 Furosemide (Lasix Inj) 40 mg Q12H IV Last administered on 01/10/17 21:56; Start 01/09/17 at 21:00; Stop 01/11/17 at 07:58; Status DC Vancomycin HCl 1000 mg/Sodium Chloride 250 ml @ 250 mls/hr Q12H IV ; Start at 18:30; Stop 01/09/17 at 20:22; Status DC Cefepime HCl 1000 mg/Sodium Chloride 100 ml @ 200 mls/hr Q8H IV Last administered on 01/11/17 04:27; Start 01/09/17 at 20:00 Pharmacy Profile Note 0 ml @ 0 mls/hr UNSCH OTHER ; Start 01/09/17 at 18:30 Albuterol/ Ipratropium (Duoneb Neb) 1 ampule Q4HR NEB INH Last administered on 01/11/17 07:27; Start 01/09/17 at 20:00 Albuterol Sulfate (Albuterol Neb) 2.5 mg Q2HR NEB PRN INH SHORTNESS OF BREATH; Start 01/09/17 at 18:45 Budesonide/ Formoterol Fumarate (Symbicort 160-4.5 Inh) 2 puff Q12HR INH Last administered on 01/10/17 21:00; Start 01/09/17 at 21:00 Methylprednisolone Sodium Succinate (SoluMEDROL INJ) 60 mg Q12H IV PUSH Last administered on 01/10/17 21:56; Start 01/09/17 at 21:00 Guaifenesin (Mucinex Er) 600 mg BID PO Last administered on 01/10/17 21:56; Start 01/09/17 at 21:00 Aspirin (Aspirin Chew) 81 mg DAILY PO Last administered on 01/10/17 08:31; Start 01/09/17 at 20:00; Status Future Hold Atorvastatin Calcium (Lipitor) 40 mg HS PO Last administered on 01/10/17 21:57 ; Start 01/09/17 at 21:00 Gabapentin (Neurontin) 300 mg DAILY@0600 PO Last administered on 01/11/17 06: 38; Start 01/10/17 at 06:00 Hydralazine HCl (Apresoline) 50 mg Q8HR PO Last administered on 01/11/17 06:38 ; Start 01/09/17 at 22:00 Insulin Human NPH (NovoLIN N INJ) 22 units HS SQ Last administered on 21:00; Start 01/09/17 at 21:00 Isosorbide Mononitrate (Imdur) 60 mg DAILY@07 PO Last administered on 06:38; Start 01/10/17 at 07:00 Lactobacillus Acidophilus (Lactinex) 1 tab TIDAC PO Last administered on 17:00; Start 01/10/17 at 08:00 Ticagrelor (Brilinta) 90 mg BID PO Last administered on 01/10/17 21:58; Start 01/09/17 at 21:00; Status Future Hold Tiotropium [place] (Spiriva Inh) 18 mcg DAILY INH ; Start 01/10/17 at 09:00; Stop 01/10/17 at 09:00; Status DC Pantoprazole Sodium (Protonix) 20 mg DAILY PO Last administered on 01/10/17 08 :31; Start 01/10/17 at 09:00; Stop 01/11/17 at 00:52; Status DC Gabapentin (Neurontin) 400 mg HS PO Last administered on 9/21/17at 21:58; Start 01/09/17 at 21:00 Nitroglycerin (Nitrostat Sl) 0.4 mg Q5M PRN SL CHEST PAIN; Start 01/09/17 at 18 :45 Heparin Sodium/ Dextrose 250 ml @ 16.8 mls/hr TITRATE PRN IV Coagulation management Last administered on 01/10/17 16:40; Start 01/09/17 at 19:00; Status Future Hold Sodium Chloride (NS Flush) 2 ml BID IV FLUSH Last administered on 01/10/17 21: 59; Start 01/09/17 at 21:00 Sodium Chloride (NS Flush) 2 ml UNSCH PRN IV FLUSH FLUSH AFTER USING IV ACCESS ; Start 01/09/17 at 19:00 Alprazolam (Xanax) 0.25 mg Q8H PRN PO ANXIETY Last administered on 01/10/17 00 :25; Start 01/09/17 at 19:00 Vancomycin HCl 1500 mg/Sodium Chloride 515 ml @ 257.5 mls/ hr Q24H IV ; Start 01/09/17 at 22:00; Stop 01/10/17 at 10:03; Status DC Miscellaneous Information SPECIFIC LAB TO BE DRAWN:VANCO TROUGH DATE TO BE DR... ONCE ONCE .XX ; Start 01/12/17 at 21:45; Stop 01/12/17 at 21:46 Furosemide (Lasix Inj) 40 mg ONCE ONCE IV PUSH Last administered on 01/10/17 01:36; Start 01/10/17 at 01:30; Stop 01/10/17 at 01:31; Status DC Metoprolol Tartrate (Lopressor) 50 mg Q12HR PO Last administered on 01/10/17 21:56; Start 01/10/17 at 09:00 Vancomycin HCl 1500 mg/Sodium Chloride 515 ml @ 257.5 mls/ hr ONCE ONCE IV Last administered on 01/10/17 11:00; Start 01/10/17 at 11:00; Stop 01/10/17 at 12:59; Status DC Al Hydrox/Mg Hydrox/Simethicone (Mag-Al Plus Susp Liq) 30 ml ONCE ONCE PO Last administered on 01/10/17 22:45; Start 01/10/17 at 22:45; Stop 01/10/17 at 22:46; Status DC Pantoprazole Sodium 80 mg/ Sodium Chloride 100 ml @ 10 mls/hr Q10H IV Last administered on 01/11/17 02:00; Start 01/11/17 at 02:00 Pantoprazole Sodium 80 mg/ Sodium Chloride 35 ml @ 420 mls/hr Q5M ONCE IV Last administered on 01/11/17 01:49; Start 01/11/17 at 01:49; Stop 01/11/17 at 01:53; Status DC A/P Assessment and Plan A/P Questionable CHF exacerbation COPD exacerbation - secondary to medication noncompliance - Chest x-ray personally revealing findings suspicious for congestive failure - echocardiogram with EF 65% - lasix was held due to acute kidney injury - IV methylprednisolone 60mg q12h - Duonebs scheduled - Supplemental oxygen to maintain O2 sats above 92% - Continue home bronchodilators - Monitor respiratory status - IS - Strict I&Os - Salt and fluid restricted diet Chest pain with elevated troponin CAD s/p cardiac catheterization with implantation of bare metal stent 12/21/16 Atrial fibrillation - Consulted cardiology -stopped heparin drip due to GI bleed - Continuous cardiac monitoring - Supplemental oxygen - hold Brilinta and aspirin due to GI bleed - Continue isosorbide 50 mg daily - continue statin - IV morphine when necessary chest pain upper GI bleed - hold heparin drip/ aspirin and Brilinta - monitor H/H and transfuse as needed - continue protonix dip - GI consult appreciated and plan for EGD today acute kidney injury superimposed on chronic renal insufficiency - lasix on hold - will monitor the renal function closely -consult nephrology - Avoid nephrotoxins - Follow BMP - renal diabetic diet DM - Accu-Chek - Insulin sliding scale - Continue home dose of insulin HTN HLD - Continue antihypertensive medications - resumed home statin therapy - Monitor BP Neuropathy - Resume home gabapentin LLE wound with third toe infection - Wound care consult appreciated. - will continue cefepime- stop IV Vanco -blood cultures negative so far -consulted podiatry -venous doppler of the left leg negative for DVT - wound culture ordered possible UTI vs colonization- continue Cefepime- will follow the UC Incidental finding of 1 cm irregular nodule right upper lobe - CT chest 12/23/16 - Recommend follow-up CT at approximately 3, 9 and 24 months and or contrast enhanced CT, PET and/or biopsy Chronic indwelling [place] - continue GI prophylaxis - PPI DVT prophylaxis -heparin discontinued due to GI bleed. Bob Phillips MD Jan 11, 2017 08:50
[2017-01-11] MEDS: guaiFENesin E.R. 600 MG TAB PO SCH ×2 (09:00→21:37)
[2017-01-11] MEDS: BUDESONIDE-FORMOTEROL 160/4.5 MCG INHALER INH SCH ×2 (09:00→21:39)
[2017-01-11] MEDS: DOCUSATE SODIUM 50 MG/SENNA 8.6 MG TAB PO SCH ×2 (09:00→21:37)
[2017-01-11] MEDS: METOPROLOL TARTRATE 50 MG TAB PO SCH ×2 (09:00→21:38)
--- NOTE | 2017-01-11 09:28 | RADRPT ---
EXAM DATE/TIME: 01/11/2017 08:46 [facility] COMPARISON: CHEST SINGLE AP, January 09, 2017, 17:33. INDICATIONS : CHF. MEDICAL HISTORY : Myocardial infarction. Congestive heart failure. Hypercholesterolemia. SURGICAL HISTORY : Tonsillectomy. Coronary artery stent. Appendectomy. Cardiac cath. ENCOUNTER: Subsequent ACUITY: 2 days PAIN SCORE: 0/10 LOCATION: Bilateral chest FINDINGS: There is persistent atherosclerotic cardiovascular disease cardiomegaly and the vascularity has mildl y improved indicating partial resolution of CHF CONCLUSION: Mild improvement vascularity CHF Mike Scott MD on January 11, 2017 at 9:26 Board Certified Radiologist. This report was verified electronically.
[2017-01-11] MEDS: SODIUM CHLORIDE 0.9% FLUSH 10 ML FLUSH IV FLUSH SCH ×2 (09:41→21:00)
[2017-01-11] MEDS: methylPREDNISolone SOD SUCC 125 MG/2 ML VIAL IV PUSH SCH ×2 (09:41→21:38)
[2017-01-11] MEDS ORDERED: LIDOCAINE HCL 1% PF 5 ML AMPULE OTHER ONE (12:00)
[2017-01-11] MEDS ORDERED: ONDANSETRON HCL 4 MG/2 ML VIAL IV PUSH ONE (12:00)
[2017-01-11] MEDS ORDERED: SUCCINYLCHOLINE CHLORIDE 100 MG/5 ML SYRINGE IV PUSH ONE (12:00)
[2017-01-11] MEDS ORDERED: PROPOFOL 200 MG/20 ML AMP ONE (12:10)
[2017-01-11] MEDS ORDERED: DO NOT ADM ANY ANTICOAGULANT DRUGS PRN (12:56)
[2017-01-11] MEDS ORDERED: LACTATED RINGER'S 1000 ML INJ 1,000 ML IV ONE (13:00)
--- NOTE | 2017-01-11 13:23 | PD.PROCEDR ---
GI Procedure REFERRING PHYSICIAN Jose PROCEDURE PERFORMED EGD INDICATION FOR PROCEDURE Nausea vomiting hematemesis and anemia PROCEDURE: The procedure, risks and benefits were discussed with Mr. Kinney and informed consent was obtained. Anesthesia sedated him with Diprivan. He was placed in the left lateral decubitus position. EGD: The Pentax videoscope was introduced through the oropharynx and advanced to the second portion of the duodenum under direct visualization. Retroflexion was performed in the stomach. FINDINGS: The esophagus this appeared to be unremarkable and within normal limits The stomach there was a large amount of gastric juices noted in the stomach which was somewhat dilated and somewhat erythemic consistent with gastritis but no blood or bleeding was seen in the stomach no ulcers no erosions The duodenum this was unremarkable and within normal limits ESTIMATED BLOOD LOSS: None SPECIMENS REMOVED: None COMPLICATIONS: None IMPRESSION: Large gastric residuals Gastritis PLAN: Will check gastric emptying scan Continue with current supportive care NG tube was placed this is to be clamped for now There is a small concern for possible small bowel obstruction although the residual could also be related to gastroparesis Zheng Huerta MD Jan 11, 2017 13:23
[2017-01-11 15:16] LABS: HEMATOCRIT 30.3 % (39.0-51.0); REVIEW FLAG FINAL
[2017-01-11 15:32] LABS: BICARBONATE 26.2 MEQ/L (21.0-32.0); POTASSIUM 5.3 MEQ/L (3.5-5.1)
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
--- NOTE | 2017-01-11 19:49 | PD.CONS ---
HPI Consult Requested By Primary Care Physician [facility] Past Family Social History Allergies: Coded Allergies: penicillin G (Unverified Allergy, Severe, 12/05/16) warfarin (Unverified Allergy, Severe, 12/05/16) Physical Exam Vital Signs Vital Signs Date Time Temp Pulse Resp B/P (MAP) Pulse Ox O2 Delivery O2 Flow Rate FiO2 01/11/17 19:22 99 01/11/17 18:11 89 01/11/17 17:00 89 01/11/17 16:00 89 01/11/17 15:00 77 01/11/17 15:00 98.7 96 18 128/81 (97) 96 01/11/17 14:00 88 01/11/17 13:15 84 12 114/65 (81) 97 Nasal Cannula 3 01/11/17 13:00 97.6 111 22 129/66 (87) 96 Nasal Cannula 3 01/11/17 11:00 85 01/11/17 11:00 97.3 80 18 135/85 (102) 01/11/17 10:00 85 01/11/17 09:00 74 01/11/17 08:00 82 01/11/17 07:28 96 Nasal Cannula 01/11/17 07:00 98.1 79 18 124/71 (88) 97 01/11/17 07:00 78 01/11/17 06:00 76 01/11/17 05:00 81 01/11/17 04:00 74 01/11/17 03:00 70 01/11/17 03:00 97.7 78 18 119/68 (85) 95 01/11/17 02:00 70 01/11/17 01:00 78 01/11/17 00:00 80 01/10/17 23:00 78 01/10/17 23:00 97.7 85 20 138/83 (101) 95 01/10/17 22:00 76 01/10/17 21:00 76 01/10/17 20:20 97 Nasal Cannula 2.00 01/10/17 20:00 70 Laboratory Laboratory Tests Test 01/10/17 23:14 01/11/17 02:15 01/11/17 07:03 01/11/17 14:31 Activated Partial Thromboplast Time 77.7 25.3 Hemoglobin 9.4 9.6 Hematocrit 29.1 29.5 Blood Urea Nitrogen 72 75 Creatinine 3.34 3.43 Random Glucose 203 225 Calcium Level 8.2 7.9 Sodium Level 137 137 Potassium Level 5.0 5.3 Chloride Level 102 102 Carbon Dioxide Level 26.6 26.2 Anion Gap 8 9 Estimat Glomerular Filtration Rate 18 17 Random Vancomycin Level 13.4 Test 01/11/17 14:34 Hemoglobin 9.5 Hematocrit 30.3 B-Type Natriuretic Peptide 426 Date/Time Source Procedure Growth Status 01/09/17 20:55 Blood Peripheral Aerobic Blood Culture - Preliminary NO GROWTH IN 2 DAYS Resulted 01/09/17 20:55 Blood Peripheral Anaerobic Blood Culture - Preliminary NO GROWTH IN 2 DAYS Resulted 01/09/17 16:15 Urine Random Urine Urine Culture - Preliminary Proteus Mirabilis Resulted Result Diagram: 01/11/17 1434 01/11/17 1431 Assessment and Plan Problem List: (1) Acute on chronic renal failure ICD Codes: N17.9 - Acute on chronic renal failure; N18.9 - Chronic kidney disease, unspecified Status: Acute Plan: Baseline SCr 1.5-1.6 Unclear etiology at the present why the rapid deterioration of renal function since admission. He has a significant amount of edema and his myocardial function appears to be well preserved. Noted >600mg of protein on UA 01/09 Will further quantify his proteinuria by UPCR Given his anemia we will also do work up for multiple myeloma. Repeat renal US Check urine for eosinophils Potential for atheroembolic embolism related to recent PTCA? D/C IV Lasix and start on Bumex 2mg q8h with IV Diuril 500mg x1. Discussed with the patient, , and daughter the severity of his renal decline. It remains to be seen where his renal functions will go given his need for aggressive diuresis. (2) Hypertension ICD Codes: I10 - Hypertension Status: Chronic Plan: Continue on current regimen (3) Atrial fibrillation ICD Codes: I48.91 - Atrial fibrillation Status: Chronic Plan: Mgmt as per cardiology (4) Chronic obstructive pulmonary disease ICD Codes: J44.9 - Chronic obstructive pulmonary disease Status: Chronic (5) DM (diabetes mellitus) ICD Codes: E11.9 - DM (diabetes mellitus) Status: Acute Plan: Mgmt as per primary Assessment and Plan The exam, history, and the medical decision-making described in the above note were completed with the assistance of the PA-C. I reviewed and agree with the findings presented. I attest that I had a [id number] encounter with the patient on the same day, and personally performed and documented my assessment and findings in the medical record. Sandra Parish MD Jan 11, 2017 19:49
[2017-01-11] MEDS ORDERED: CHLOROTHIAZIDE SOD 500 MG VIAL IV ONE (20:00)
[2017-01-11 20:21] LABS: HEMATOCRIT 29.1 % (39.0-51.0); REVIEW FLAG FINAL
[2017-01-11] MEDS: GABAPENTIN 400 MG CAP PO SCH (21:37)
[2017-01-11] MEDS: ATORVASTATIN 40 MG TAB PO SCH (21:38)
[2017-01-11 21:54] LABS: TRANSFERRIN IRON PROFILE 222 MG/DL (200-360)
[2017-01-11] MEDS: INSULIN HUMAN NPH 1,000 UNITS/10 ML VIAL SQ SCH (21:55)
[2017-01-11 21:56] LABS: BICARBONATE 25.5 MEQ/L (21.0-32.0); POTASSIUM 5.2 MEQ/L (3.5-5.1)
[2017-01-11] MEDS: BUMETANIDE INJ 1 MG/4 ML VIAL IV PUSH SCH (21:56)
[2017-01-11 22:06] LABS: KAPPA LAMBDA RATIO 1.68 (1.57-3.93); TOTAL PROTEIN SPE 5.8 GM/DL (6.0-7.6)
[2017-01-12] VITALS (25 sets, daily range): BP systolic 115–137; BP diastolic 72–92; PULSE 70–98; RESP 16–20; TEMP 97.1–97.8; O2SAT 95–100
--- NOTE | 2017-01-12 00:41 | RADRPT ---
EXAM DATE/TIME: 01/11/2017 23:22 [facility] COMPARISON: US KIDNEY/RENAL/BLADDER, December 25, 2016, 11:37. INDICATIONS : Increased BUN/Creatinine. MEDICAL HISTORY : Myocardial infarction. Congestive heart failure. Hypercholesterolemia. Seizures. Coronary artery dise ase. Afib. Hypertension. COPD. Pneumonia. Sleep apnea. Ulcer. Prostate cancer. Arthritis. Diabetes. D epression. Anxiety. Measles. Neuropathy.Blood transfusion. Cdiff. SURGICAL HISTORY : Tonsillectomy. Appendectomy. Prostatectomy. Coronary artery stent. Suprapubic catheter with removal. Left finger repair. ENCOUNTER: Subsequent ACUITY: 2 weeks PAIN SCORE: 2/10 LOCATION: Bilateral flank MEASUREMENTS: RIGHT KIDNEY: 12.4 x 5.7 x 6.3 cm LEFT KIDNEY: 13.3 x 6.8 x 6.9 cm FINDINGS: RIGHT KIDNEY: Renal cortex is normal in thickness and echotexture. No hydronephrosis, stone, or mass. LEFT KIDNEY: Renal cortex is normal thickness and echotexture. No hydronephrosis, stone, or mass. Simple cyst in the midpole measures 2.8 x 2.9 x 2.7 cm. BLADDER: Not well seen. CONCLUSION: No evidence of hydronephrosis. 2.8 cm left renal cyst. Clemente Matute MD on January 12, 2017 at 0:38 Board Certified Radiologist. This report was verified electronically.
[2017-01-12] MEDS: RESP: ALBUTEROL 2.5 MG/IPRATROPIUM 0.5 MG NEB (SCH) INH ×6 (00:56→21:05)
[2017-01-12] MEDS: BUMETANIDE INJ 1 MG/4 ML VIAL IV PUSH SCH ×3 (03:44→22:35)
[2017-01-12] MEDS: hydrALAZINE HCL 50 MG TAB PO SCH ×3 (06:00→22:39)
[2017-01-12] MEDS: GABAPENTIN 300 MG CAP PO SCH (06:00)
[2017-01-12] MEDS: ISOSORBIDE MONONITRATE 60 MG TAB PO SCH (06:10)
[2017-01-12 07:41] LABS: AUTOMATED NEUTROPHIL # 14.4 TH/MM3 (1.8-7.7); HEMATOCRIT 28.9 % (39.0-51.0); HEMO FLAGS DIFF FINAL; LYMPH % 0.9 % (9.0-44.0); LYMPHOCYTE # 0.1 TH/MM3 (1.0-4.8); MEAN CELL VOLUME 87.5 FL (80.0-100.0); MEAN CORPUSCULAR HEMOGLOBIN 28.1 PG (27.0-34.0); MEAN CORPUSCULAR HGB CONC 32.2 % (32.0-36.0); MONO % 3.5 % (0.0-8.0); NEUT % 95.6 % (16.0-70.0); PLATELET COUNT 144 TH/MM3 (150-450); RED BLOOD COUNT 3.31 MIL/MM3 (4.50-5.90); RED CELL DISTRIBUTION WIDTH 16.4 % (11.6-17.2); WHITE BLOOD COUNT 15.1 TH/MM3 (4.0-11.0)
[2017-01-12] MEDS: LACTOBACILLUS ACIDOPHILUS TAB PO SCH ×3 (08:00→17:00)
[2017-01-12] MEDS: INSULIN ASPART SUPPLEMENTAL SCALE SQ SCH ×4 (08:00→23:39)
[2017-01-12 08:06] LABS: BICARBONATE 23.7 MEQ/L (21.0-32.0); POTASSIUM 5.1 MEQ/L (3.5-5.1)
--- NOTE | 2017-01-12 08:19 | HHI.PR ---
Subjective Remarks in no acute distress. NG tube in place. complaining of on and off abdominal pain and nausea. no emesis or fever. Objective Vitals Vital Signs Date Time Temp Pulse Resp B/P (MAP) Pulse Ox O2 Delivery O2 Flow Rate FiO2 01/12/17 06:00 78 01/12/17 05:00 72 01/12/17 04:00 98 01/12/17 04:00 97.6 86 18 131/76 (94) 97 01/12/17 03:00 84 01/12/17 02:00 90 01/12/17 01:00 78 01/12/17 00:00 97.8 81 18 123/76 (92) 95 01/12/17 00:00 72 01/11/17 23:00 76 01/11/17 22:00 82 01/11/17 21:00 86 01/11/17 20:00 97.6 86 18 129/68 (88) 95 01/11/17 20:00 83 01/11/17 19:22 99 01/11/17 18:11 89 01/11/17 17:00 89 01/11/17 16:00 89 01/11/17 15:00 77 01/11/17 15:00 98.7 96 18 128/81 (97) 96 01/11/17 14:00 88 01/11/17 13:15 84 12 114/65 (81) 97 Nasal Cannula 3 01/11/17 13:00 97.6 111 22 129/66 (87) 96 Nasal Cannula 3 01/11/17 11:00 85 01/11/17 11:00 97.3 80 18 135/85 (102) 01/11/17 10:00 85 01/11/17 09:00 74 I/O 01/11/17 01/11/17 01/11/17 01/12/17 01/12/17 01/12/17 07:00 15:00 23:00 07:00 15:00 23:00 Intake Total 240 ml 200 ml 200 ml 133 ml Output Total 250 ml 300 ml 400 ml 1525 ml Balance -10 ml -100 ml -200 ml -1392 ml Intake Oral 240 ml 200 ml IV Total 133 ml Other 200 ml Output Urine Total 250 ml 300 ml 400 ml 1525 ml Drainage Total 0 ml Result Diagram: 9/23/17 0718 9/22/17 2117 Imaging Last Impressions Renal Ultrasound 01/11/17 0000 Signed Impressions: Service Date/Time: Wednesday, January 11, 2017 23:22 - CONCLUSION: No evidence of hydronephrosis. 2.8 cm left renal cyst. Clemente Matute MD Chest X-Ray 01/11/17 0000 Signed Impressions: Service Date/Time: Wednesday, January 11, 2017 08:46 - CONCLUSION: Mild improvement vascularity CHF Mike Scott MD Lower Extremity Ultrasound 01/10/17 0000 Signed Impressions: Service Date/Time: December 08:44 - CONCLUSION: 1. Negative left lower extremity DVT study. A Clay's cyst measuring 2.5 x 4.7 x 1 cm. Carlitos Corona MD Toe X-Ray 01/09/17 0000 Signed Impressions: Service Date/Time: Monday, January 09, 2017 17:40 - CONCLUSION: Soft tissue swelling third digit without bony destruction. Wilfredo Maddox MD FACR Objective Remarks GENERAL: in no acute distress but seems uncomfortable with nausea CARDIOVASCULAR; tachycardic with irregular rhythm without murmurs, gallops, or rubs. RESPIRATORY: Clear to auscultation. Breath sounds equal bilaterally. No wheezes , rales, or rhonchi. GASTROINTESTINAL: Abdomen soft, mild generalized tenderness and distended. Normal, active bowel sounds MUSCULOSKELETAL: erythema and swelling of the left third toe. NEURO: Alert & Oriented x4 to person, place, time, situation. Moves all ext x4 skin; some erythema over the left leg along with superficial ulcer on the left weeks Procedures EGD Medications and IVs Current Medications Methylprednisolone Sodium Succinate (SoluMEDROL INJ) 125 mg ONCE ONCE IV PUSH Last administered on 01/09/17 17:08; Start 01/09/17 at 16:00; Stop 01/09/17 at 16:01; Status DC Albuterol/ Ipratropium (Duoneb Neb) 1 ampule Q15M INH Last administered on 01/09 16:27; Start 01/09/17 at 16:00; Stop 01/09/17 at 16:16; Status DC Furosemide (Lasix Inj) 40 mg ONCE ONCE IV PUSH Last administered on 01/09/17 18:55; Start 01/09/17 at 18:15; Stop 01/09/17 at 18:16; Status DC Trimethoprim/ Sulfamethoxazole (Bactrim Ds 800-160 Mg) 1 tab ONCE ONCE PO Last administered on 01/09/17 20:53; Start 01/09/17 at 20:00; Stop 01/09/17 at 20:01; Status DC Dextrose (D50w (Vial) Inj) 50 ml UNSCH PRN IV PUSH HYPOGLYCEMIA-SEE COMMENTS; Start 01/09/17 at 18:30 Glucagon (Glucagon Inj) 1 mg UNSCH PRN OTHER HYPOGLYCEMIA-SEE COMMENTS; Start 01/09/17 at 18:30 Insulin Aspart (NovoLOG SUPPLEMENTAL SCALE) 1 ACHS SLIDING SCALE SQ Last administered on 01/11/17 16:52; Start 01/09/17 at 21:00 Sodium Chloride (NS Flush) 2 ml UNSCH PRN IV FLUSH FLUSH AFTER USING IV ACCESS ; Start 01/09/17 at 18:30; Stop 01/09/17 at 19:26; Status DC Sodium Chloride (NS Flush) 2 ml BID IV FLUSH ; Start 01/09/17 at 21:00; Stop at 21:00; Status DC Acetaminophen (Tylenol) 650 mg Q4H PRN PO TEMP > 100.4; Start 01/09/17 at 18:30 Ondansetron HCl (Zofran Inj) 4 mg Q6H PRN IVP NAUSEA OR VOMITING Last administered on 01/11/17 00:00; Start 01/09/17 at 18:30 Prochlorperazine (Compazine Supp) 25 mg Q12H PRN RECTAL NAUSEA OR VOMITING; Start 01/09/17 at 18:30 Acetaminophen (Tylenol) 650 mg Q6H PRN PO PAIN SCALE 1 TO 2; Start 01/09/17 at 18:30 Oxycodone/ Acetaminophen (Percocet 5-325 Mg) 1 tab Q6H PRN PO PAIN SCALE 3 TO 5; Start 01/09/17 at 18:30 Oxycodone/ Acetaminophen (Percocet 10-325 Mg) 1 tab Q6H PRN PO PAIN SCALE 6 TO 10; Start 01/09/17 at 18:30 Morphine Sulfate (Morphine Inj) 2 mg Q3H PRN IV PUSH Pain 3-5; if unable to take PO; Start 01/09/17 at 18:30 Morphine Sulfate (Morphine Inj) 4 mg Q3H PRN IV PUSH Pain 6-10;if unable to take PO; Start 01/09/17 at 18:30 Naloxone HCl (Narcan Inj) 0.4 mg UNSCH PRN IV PUSH SEE LABEL COMMENTS; Start at 18:30 Senna/Docusate Sodium (Ofe-Colace) 1 tab BID PO Last administered on 21:37; Start 01/09/17 at 21:00 Magnesium Hydroxide (Milk Of Magnesia Liq) 30 ml Q12H PRN PO MILD - MODERATE CONSTIPATION; Start 01/09/17 at 18:30 Sennosides (Senokot) 17.2 mg Q12H PRN PO MODERATE - SEVERE CONSTIPATION; Start 01/09/17 at 18:30 Bisacodyl (Dulcolax Supp) 10 mg DAILY PRN RECTAL SEVERE CONSITIPATION; Start at 18:30 Lactulose (Lactulose Liq) 30 ml DAILY PRN PO SEVERE CONSITIPATION; Start at 18:30 Furosemide (Lasix Inj) 40 mg Q12H IV Last administered on 01/10/17 21:56; Start 01/09/17 at 21:00; Stop 01/11/17 at 07:58; Status DC Vancomycin HCl 1000 mg/Sodium Chloride 250 ml @ 250 mls/hr Q12H IV ; Start at 18:30; Stop 01/09/17 at 20:22; Status DC Cefepime HCl 1000 mg/Sodium Chloride 100 ml @ 200 mls/hr Q8H IV Last administered on 01/11/17 04:27; Start 01/09/17 at 20:00; Stop 01/11/17 at 08:53 ; Status DC Pharmacy Profile Note 0 ml @ 0 mls/hr UNSCH OTHER ; Start 01/09/17 at 18:30; Stop 01/11/17 at 08:53; Status DC Albuterol/ Ipratropium (Duoneb Neb) 1 ampule Q4HR NEB INH Last administered on 01/12/17 04:01; Start 01/09/17 at 20:00 Albuterol Sulfate (Albuterol Neb) 2.5 mg Q2HR NEB PRN INH SHORTNESS OF BREATH; Start 01/09/17 at 18:45 Budesonide/ Formoterol Fumarate (Symbicort 160-4.5 Inh) 2 puff Q12HR INH Last administered on 01/11/17 21:39; Start 01/09/17 at 21:00 Methylprednisolone Sodium Succinate (SoluMEDROL INJ) 60 mg Q12H IV PUSH Last administered on 01/11/17 21:38; Start 01/09/17 at 21:00 Guaifenesin (Mucinex Er) 600 mg BID PO Last administered on 01/11/17 21:37; Start 01/09/17 at 21:00 Aspirin (Aspirin Chew) 81 mg DAILY PO Last administered on 01/10/17 08:31; Start 01/09/17 at 20:00; Status Future Hold Atorvastatin Calcium (Lipitor) 40 mg HS PO Last administered on 01/11/17 21:38 ; Start 01/09/17 at 21:00 Gabapentin (Neurontin) 300 mg DAILY@0600 PO Last administered on 01/11/17 06: 38; Start 01/10/17 at 06:00 Hydralazine HCl (Apresoline) 50 mg Q8HR PO Last administered on 01/11/17 22:11 ; Start 01/09/17 at 22:00 Insulin Human NPH (NovoLIN N INJ) 22 units HS SQ Last administered on 21:55; Start 01/09/17 at 21:00 Isosorbide Mononitrate (Imdur) 60 mg DAILY@07 PO Last administered on 06:38; Start 01/10/17 at 07:00 Lactobacillus Acidophilus (Lactinex) 1 tab TIDAC PO Last administered on 16:50; Start 01/10/17 at 08:00 Ticagrelor (Brilinta) 90 mg BID PO Last administered on 01/10/17 21:58; Start 01/09/17 at 21:00; Status Future Hold Tiotropium [place] (Spiriva Inh) 18 mcg DAILY INH ; Start 01/10/17 at 09:00; Stop 01/10/17 at 09:00; Status DC Pantoprazole Sodium (Protonix) 20 mg DAILY PO Last administered on 01/10/17 08 :31; Start 01/10/17 at 09:00; Stop 01/11/17 at 00:52; Status DC Gabapentin (Neurontin) 400 mg HS PO Last administered on 01/11/17 21:37; Start 01/09/17 at 21:00 Nitroglycerin (Nitrostat Sl) 0.4 mg Q5M PRN SL CHEST PAIN; Start 01/09/17 at 18 :45 Heparin Sodium/ Dextrose 250 ml @ 16.8 mls/hr TITRATE PRN IV Coagulation management Last administered on 01/10/17 16:40; Start 01/09/17 at 19:00; Status Future Hold Sodium Chloride (NS Flush) 2 ml BID IV FLUSH Last administered on 01/11/17 09: 41; Start 01/09/17 at 21:00 Sodium Chloride (NS Flush) 2 ml UNSCH PRN IV FLUSH FLUSH AFTER USING IV ACCESS ; Start 01/09/17 at 19:00 Alprazolam (Xanax) 0.25 mg Q8H PRN PO ANXIETY Last administered on 01/10/17 00 :25; Start 01/09/17 at 19:00 Vancomycin HCl 1500 mg/Sodium Chloride 515 ml @ 257.5 mls/ hr Q24H IV ; Start 01/09/17 at 22:00; Stop 01/10/17 at 10:03; Status DC Miscellaneous Information SPECIFIC LAB TO BE DRAWN:VANCO TROUGH DATE TO BE DR... ONCE ONCE .XX ; Start 01/12/17 at 21:45; Stop 01/12/17 at 21:46; Status Cancel Furosemide (Lasix Inj) 40 mg ONCE ONCE IV PUSH Last administered on 01/10/17 01:36; Start 01/10/17 at 01:30; Stop 01/10/17 at 01:31; Status DC Metoprolol Tartrate (Lopressor) 50 mg Q12HR PO Last administered on 01/11/17 21:38; Start 01/10/17 at 09:00 Vancomycin HCl 1500 mg/Sodium Chloride 515 ml @ 257.5 mls/ hr ONCE ONCE IV Last administered on 01/10/17 11:00; Start 01/10/17 at 11:00; Stop 01/10/17 at 12:59; Status DC Al Hydrox/Mg Hydrox/Simethicone (Mag-Al Plus Susp Liq) 30 ml ONCE ONCE PO Last administered on 01/10/17 22:45; Start 01/10/17 at 22:45; Stop 01/10/17 at 22:46; Status DC Pantoprazole Sodium 80 mg/ Sodium Chloride 100 ml @ 10 mls/hr Q10H IV Last administered on 01/11/17 22:11; Start 01/11/17 at 02:00 Pantoprazole Sodium 80 mg/ Sodium Chloride 35 ml @ 420 mls/hr Q5M ONCE IV Last administered on 01/11/17 01:49; Start 01/11/17 at 01:49; Stop 01/11/17 at 01:53; Status DC Propofol (Diprivan 200 Mg/20 ml Inj) 400 mg STK-MED ONCE .ROUTE ; Start at 12:10; Stop 01/11/17 at 12:11; Status DC Lactated Ringer's 1,000 ml @ 30 mls/hr Q24H ONCE IV Last administered on 12:19; Start 01/11/17 at 13:00; Stop 01/12/17 at 12:59 Miscellaneous Information ALL NURSING DEPARTME... UNSCH PRN .XX SEE LABEL COMMENTS; Start 01/11/17 at 12:56; Stop 01/12/17 at 12:55 Bumetanide (Bumex Inj) 2 mg Q8H IV PUSH Last administered on 01/12/17 03:44; Start 01/11/17 at 20:00 Chlorothiazide Sodium (Diuril Inj) 500 mg ONCE ONCE IV Last administered on 21:57; Start 01/11/17 at 20:00; Stop 01/11/17 at 21:04; Status DC Bacitracin (Bacitracin Oint Packet) 0.9 gm DAILY TOPICAL ; Start 01/12/17 at 09: 00 A/P Assessment and Plan A/P Questionable CHF exacerbation COPD exacerbation - secondary to medication noncompliance - Chest x-ray personally revealing findings suspicious for congestive failure - echocardiogram with EF 65% - started on Bumex - IV methylprednisolone 60mg q12h; start to taper down - continue neb treatment - Supplemental oxygen to maintain O2 sats above 92% - Continue home bronchodilators - Monitor respiratory status - IS - Strict I&Os - Salt and fluid restricted diet Chest pain with elevated troponin CAD s/p cardiac catheterization with implantation of bare metal stent 12/21/16 Atrial fibrillation - Consulted cardiology -stopped heparin drip due to GI bleed - Continuous cardiac monitoring - Supplemental oxygen - hold Brilinta and aspirin due to GI bleed - Continue isosorbide 50 mg daily - continue statin - continue with pain control upper GI bleed - s/p EGD; large gastric residual and gastritis - heparin drip on hold- will resume aspirin and Brilinta when ok with GI - NG tube in place - check KUB - monitor H/H and transfuse as needed - continue protonix dip - GI following acute kidney injury superimposed on chronic renal insufficiency --renal US with no hydronephrosis - started on Bumex -SPEP to be followed. - will monitor the renal function closely -nephrology consult appreciated. DM - Accu-Chek - Insulin sliding scale - Continue home dose of insulin HTN HLD - Continue antihypertensive medications - resumed home statin therapy - Monitor BP Neuropathy - Resumed home gabapentin LLE wound with left third toe infection - Wound care consult appreciated. - will continue cefepime- -blood cultures negative so far -consulted podiatry -venous doppler of the left leg negative for DVT - wound culture ordered possible UTI vs colonization- continue Cefepime- UC with proteus mirabilis Incidental finding of 1 cm irregular nodule right upper lobe - CT chest 12/23/16 - Recommend follow-up CT at approximately 3, 9 and 24 months and or contrast enhanced CT, PET and/or biopsy Chronic indwelling Cortez - continue GI prophylaxis - PPI DVT prophylaxis -heparin discontinued due to GI bleed. Bob Phillips MD Jan 12, 2017 08:19
[2017-01-12] MEDS: METOPROLOL TARTRATE 50 MG TAB PO SCH ×2 (08:49→22:40)
[2017-01-12] MEDS: BUDESONIDE-FORMOTEROL 160/4.5 MCG INHALER INH SCH ×2 (08:49→22:33)
[2017-01-12] MEDS: guaiFENesin E.R. 600 MG TAB PO SCH ×2 (08:49→22:40)
[2017-01-12] MEDS: BACITRACIN OINT 0.9 GM PKT TOPICAL SCH (08:50)
[2017-01-12] MEDS: DOCUSATE SODIUM 50 MG/SENNA 8.6 MG TAB PO SCH ×2 (08:50→22:39)
[2017-01-12] MEDS ORDERED: CEFEPIME INJ 1,000 MG in SODIUM CHLORIDE 0.9% INJ 100 ML IV SCH (09:00)
[2017-01-12] MEDS: PANTOPRAZOLE INJ 80 MG in SODIUM CHLORIDE 0.9% INJ 100 ML IV SCH ×2 (09:10→18:16)
[2017-01-12] MEDS: methylPREDNISolone SOD SUCC 125 MG/2 ML VIAL IV PUSH SCH ×2 (09:14→22:41)
[2017-01-12] MEDS: SODIUM CHLORIDE 0.9% FLUSH 10 ML FLUSH IV FLUSH SCH ×2 (09:15→22:41)
--- NOTE | 2017-01-12 09:59 | PD.CARD.PN ---
Subjective Subjective Remarks Pt notes liquid dysphagia, no cardiac sx. Objective Medications Administered Medications Medications (Trade) Dose Ordered Sig/Marcos Route PRN Reason Start Time Stop Time Status Last Admin Dose Admin Insulin Aspart (NovoLOG SUPPLEMENTAL SCALE) 1 ACHS SLIDING SCALE SQ 01/09/17 21:00 01/11/17 16:52 Ondansetron HCl (Zofran Inj) 4 mg Q6H PRN IVP NAUSEA OR VOMITING 01/09/17 18:30 01/11/17 00:00 Senna/Docusate Sodium (Ofe-Colace) 1 tab BID PO 01/09/17 21:00 01/11/17 21:37 Albuterol/ Ipratropium (Duoneb Neb) 1 ampule Q4HR NEB INH 01/09/17 20:00 01/12/17 04:01 Budesonide/ Formoterol Fumarate (Symbicort 160-4.5 Inh) 2 puff Q12HR INH 01/09/17 21:00 01/11/17 21:39 Guaifenesin (Mucinex Er) 600 mg BID PO 01/09/17 21:00 01/11/17 21:37 Aspirin (Aspirin Chew) 81 mg DAILY PO 01/09/17 20:00 Future Hold 01/10/17 08:31 Atorvastatin Calcium (Lipitor) 40 mg HS PO 01/09/17 21:00 01/11/17 21:38 Gabapentin (Neurontin) 300 mg DAILY@0600 PO 01/10/17 06:00 01/11/17 06:38 Hydralazine HCl (Apresoline) 50 mg Q8HR PO 01/09/17 22:00 01/11/17 22:11 Insulin Human NPH (NovoLIN N INJ) 22 units HS SQ 01/09/17 21:00 01/11/17 21:55 Isosorbide Mononitrate (Imdur) 60 mg DAILY@07 PO 01/10/17 07:00 01/11/17 06:38 Lactobacillus Acidophilus (Lactinex) 1 tab TIDAC PO 01/10/17 08:00 01/11/17 16:50 Ticagrelor (Brilinta) 90 mg BID PO 01/09/17 21:00 Future Hold 01/10/17 21:58 Gabapentin (Neurontin) 400 mg HS PO 01/09/17 21:00 01/11/17 21:37 Heparin Sodium/ Dextrose 250 ml @ 16.8 mls/hr TITRATE PRN IV Coagulation management 01/09/17 19:00 Future Hold 01/10/17 16:40 Sodium Chloride (NS Flush) 2 ml BID IV FLUSH 01/09/17 21:00 01/12/17 09:15 Alprazolam (Xanax) 0.25 mg Q8H PRN PO ANXIETY 01/09/17 19:00 01/10/17 00:25 Metoprolol Tartrate (Lopressor) 50 mg Q12HR PO 01/10/17 09:00 01/11/17 21:38 Pantoprazole Sodium 80 mg/ Sodium Chloride 100 ml @ 10 mls/hr Q10H IV 01/11/17 02:00 01/12/17 09:10 Lactated Ringer's 1,000 ml @ 30 mls/hr Q24H ONCE IV 01/11/17 13:00 01/12/17 12:59 01/11/17 12:19 Bumetanide (Bumex Inj) 2 mg Q8H IV PUSH 01/11/17 20:00 01/12/17 03:44 Methylprednisolone Sodium Succinate (SoluMEDROL INJ) 40 mg Q12H IV PUSH 01/12/17 09:00 01/12/17 09:14 Cefepime HCl 1000 mg/Sodium Chloride 100 ml @ 200 mls/hr DAILY IV 01/12/17 09:00 01/12/17 09:10 Vital Signs / I&O Vital Signs Date Time Temp Pulse Resp B/P (MAP) Pulse Ox O2 Delivery O2 Flow Rate FiO2 01/12/17 09:05 89 01/12/17 08:00 91 01/12/17 07:00 87 01/12/17 07:00 97.4 87 18 117/85 (96) 97 01/12/17 06:00 78 01/12/17 05:00 72 01/12/17 04:00 98 01/12/17 04:00 97.6 86 18 131/76 (94) 97 01/12/17 03:00 84 01/12/17 02:00 90 01/12/17 01:00 78 01/12/17 00:00 97.8 81 18 123/76 (92) 95 01/12/17 00:00 72 01/11/17 23:00 76 01/11/17 22:00 82 01/11/17 21:00 86 01/11/17 20:00 97.6 86 18 129/68 (88) 95 01/11/17 20:00 83 01/11/17 19:22 99 01/11/17 18:11 89 01/11/17 17:00 89 01/11/17 16:00 89 01/11/17 15:00 77 01/11/17 15:00 98.7 96 18 128/81 (97) 96 01/11/17 14:00 88 01/11/17 13:15 84 12 114/65 (81) 97 Nasal Cannula 3 01/11/17 13:00 97.6 111 22 129/66 (87) 96 Nasal Cannula 3 01/11/17 11:00 85 01/11/17 11:00 97.3 80 18 135/85 (102) 01/11/17 10:00 85 I/O 01/11/17 01/11/17 01/11/17 01/12/17 01/12/17 01/12/17 07:00 15:00 23:00 07:00 15:00 23:00 Intake Total 240 ml 200 ml 200 ml 133 ml Output Total 250 ml 300 ml 400 ml 1525 ml Balance -10 ml -100 ml -200 ml -1392 ml Intake Oral 240 ml 200 ml IV Total 133 ml Other 200 ml Output Urine Total 250 ml 300 ml 400 ml 1525 ml Drainage Total 0 ml Physical Exam GENERAL: This is a well-nourished, well-developed patient, in no apparent distress. CARDIOVASCULAR: Regular rate and irregular rhythm without murmurs, gallops, or rubs. RESPIRATORY: Clear to auscultation. Breath sounds equal bilaterally. No wheezes , rales, or rhonchi. GASTROINTESTINAL: Abdomen soft, non-tender, nondistended. Normal, active bowel sounds MUSCULOSKELETAL: 1+ edema bilat. NEURO: Alert & Oriented x4 to person, place, time, situation. Moves all ext x4 Laboratory Laboratory Tests Test 01/11/17 14:31 01/11/17 14:34 01/11/17 19:54 01/11/17 21:17 Blood Urea Nitrogen 75 MG/DL 77 MG/DL Creatinine 3.43 MG/DL 3.44 MG/DL Random Glucose 225 MG/DL 194 MG/DL Calcium Level 7.9 MG/DL 7.9 MG/DL Sodium Level 137 MEQ/L 138 MEQ/L Potassium Level 5.3 MEQ/L 5.2 MEQ/L Chloride Level 102 MEQ/L 103 MEQ/L Carbon Dioxide Level 26.2 MEQ/L 25.5 MEQ/L Anion Gap 9 MEQ/L 10 MEQ/L Estimat Glomerular Filtration Rate 17 ML/MIN 17 ML/MIN Phosphorus Level 6.1 MG/DL Iron Level 36 MCG/DL Total Iron Binding Capacity 311 MCG/DL Percent Iron Saturation 11.6 % 25-Hydroxy Vitamin D Total 21.5 ng/ML Complement C3 127 MG/DL Complement C4 35 MG/DL Hemoglobin 9.5 GM/DL 9.1 GM/DL Hematocrit 30.3 % 29.1 % B-Type Natriuretic Peptide 426 PG/ML Total Protein 5.8 GM/DL Parathyroid Hormone (Intact) 398.7 PG/ML Immunoglobulin G Total 498 MG/DL Immunoglobulin A 160 MG/DL Immunoglobulin M 100 MG/DL Immunoglobulin Shattuck/Lambda Ratio 1.68 Shattuck Light Chain Analysis 143 MG/DL Lambda Light Chain Analysis 85 MG/DL Test 01/12/17 07:18 White Blood Count 15.1 TH/MM3 Red Blood Count 3.31 MIL/MM3 Hemoglobin 9.3 GM/DL Hematocrit 28.9 % Mean Corpuscular Volume 87.5 FL Mean Corpuscular Hemoglobin 28.1 PG Mean Corpuscular Hemoglobin Concent 32.2 % Red Cell Distribution Width 16.4 % Platelet Count 144 TH/MM3 Mean Platelet Volume 9.1 FL Neutrophils (%) (Auto) 95.6 % Lymphocytes (%) (Auto) 0.9 % Monocytes (%) (Auto) 3.5 % Eosinophils (%) (Auto) 0.0 % Basophils (%) (Auto) 0.0 % Neutrophils # (Auto) 14.4 TH/MM3 Lymphocytes # (Auto) 0.1 TH/MM3 Monocytes # (Auto) 0.5 TH/MM3 Eosinophils # (Auto) 0.0 TH/MM3 Basophils # (Auto) 0.0 TH/MM3 CBC Comment DIFF FINAL Differential Comment Blood Urea Nitrogen 82 MG/DL Creatinine 3.79 MG/DL Random Glucose 228 MG/DL Albumin 2.8 GM/DL Calcium Level 8.3 MG/DL Phosphorus Level 6.2 MG/DL Sodium Level 137 MEQ/L Potassium Level 5.1 MEQ/L Chloride Level 102 MEQ/L Carbon Dioxide Level 23.7 MEQ/L Anion Gap 11 MEQ/L Estimat Glomerular Filtration Rate 15 ML/MIN Imaging Last Impressions Renal Ultrasound 01/11/17 0000 Signed Impressions: Service Date/Time: Wednesday, January 11, 2017 23:22 - CONCLUSION: No evidence of hydronephrosis. 2.8 cm left renal cyst. Clemente Matute MD Chest X-Ray 01/11/17 0000 Signed Impressions: Service Date/Time: Wednesday, January 11, 2017 08:46 - CONCLUSION: Mild improvement vascularity CHF Mike Scott MD Lower Extremity Ultrasound 01/10/17 0000 Signed Impressions: Service Date/Time: December 08:44 - CONCLUSION: 1. Negative left lower extremity DVT study. A Clay's cyst measuring 2.5 x 4.7 x 1 cm. Carlitos Corona MD Toe X-Ray 01/09/17 0000 Signed Impressions: Service Date/Time: Monday, January 09, 2017 17:40 - CONCLUSION: Soft tissue swelling third digit without bony destruction. Wilfredo Maddox MD FACR Assessment and Plan Problem List: (1) Atrial fibrillation ICD Codes: I48.91 - Atrial fibrillation Status: Chronic Plan: rate controlled; not on anticoagulation due to hemoptysis (2) Congestive heart failure ICD Codes: I50.9 - Congestive heart failure Status: Acute Plan: now on bumex but cr rising; defer to renal Problem Qualifiers (1) Congestive heart failure: Qualified Codes: I50.23 - Acute on chronic systolic (congestive) heart failure Law Vega MD Jan 12, 2017 09:58
--- NOTE | 2017-01-12 10:32 | RADRPT ---
EXAM DATE/TIME: 01/12/2017 10:07 [facility] COMPARISON: ABDOMEN KUB ONLY, April 19, 2014, 22:47. INDICATIONS : Abdominal distention and pain. MEDICAL HISTORY : None. SURGICAL HISTORY : Tonsillectomy. Coronary artery stent. Appendectomy. Cardiac cath. ENCOUNTER: Initial ACUITY: 1 day PAIN SCORE: 8/10 LOCATION: Abdomen FINDINGS: 3 supine frontal views of the abdomen demonstrate air anomaly within the colon in a nonobstructive pa ttern. There is mild gaseous distention of the stomach. Nasogastric tube tip is in the proximal stoma ch. No organomegaly is appreciated. There is no abnormal mass effect. There is severe atherosclerotic disease of the pelvic arterial vessels. Lung bases are clear. Coronary stent is visualized. CONCLUSION: 1. No acute abdominal abnormality is identified. 2. Severe atherosclerotic disease. Storm Allen MD on January 12, 2017 at 10:29 Board Certified Radiologist. This report was verified electronically.
--- NOTE | 2017-01-12 11:41 | MB ---
cc: NIRALI BLUE DATE OF CONSULTATION: 01/11/2017 REASON FOR CONSULTATION: Chief complaint of left lower extremity ulcerations. HISTORY OF PRESENT ILLNESS Mr. Kinney is an 86-year-old male was admitted for chronic obstructive pulmonary disease exacerbation. He states that he sees a histology tech at the CT every three months but continues to have some small wounds on the left lower extremity, he has neuropathy and denies any pain to the wounds. Denies any fever, headache, chills, shortness of breath. PAST MEDICAL HISTORY: 1. His medical history includes possible congestive heart failure. 2. Diabetes 3. Atrial fibrillation 4. Neuropathy 5. Gastroesophageal reflux disease 6. History of prostate cancer 7. Coronary artery disease 8. Chronic obstructive pulmonary disease 9. Chronic kidney disease stage III 10. Dyslipidemia 11. Chronic Cortez 12. Atrial fibrillation. PAST SURGICAL HISTORY: 1. The past surgical history includes cardiac catheterization with stenting 2. prostate surgery. 3. appendectomy. MEDICATIONS Please see list. ALLERGIES CODEINE PENICILLIN FAMILY HISTORY Noncontributory. SOCIAL HISTORY The patient has a remote history of smoking but quit more than 40 years ago. Denies any alcohol or drug abuse. Lives at home with . Vital signs at time of evaluation temperature is 98.7 pulse 77 Respiratory rate 18, blood pressure 128/81, pulse ox 96% O2 on room air. LABORATORY FIDNINGS: labs obtained on January 10, white count 10.2, hemoglobin 10.6, hematocrit 33.8, platelets 158. Sodium 138, potassium chloride 0.2, chloride 103, carbon dioxide 25.5, BUN 77 and creatinine 2.44, hemoglobin A1c pending. RADIOLOGIC: X-rays are negative for any gas in the soft tissue or cortical erosion and no signs of infection. PHYSICAL EXAMINATION: VITAL SIGNS: On physical exam the patient has decreased pulses as well as an decreased sensation. Capillary refill is within normal limits, the right lower extremity is unremarkable. The left lower extremity anterior weeks has a partial thickness ulceration of 1 cm x 1 cm. No deep probing, mild serous drainage. No erythema and no malodor. The left dorsal second digit has an ulceration and 0.53 x 0.5 x 0.0, with a granular wound bed mild sanguinous drainage. No erythema and no edema and no signs of infection. The third digit dorsally has a partial thickness ulceration. After removal of an Eschar approximately 5 mm x 5 mm x zero, no signs of infection, no erythema, no drainage, no malodor, no edema. ASSESSMENT/PLAN 1. Mixed stage ulcerations the left lower extremity. No signs of infection currently. - Wound care orders provided for nursing staff. - No antibiotics needed for current wounds. - The patient has a histology tech at the CT that he can follow up with once he is discharged. - Please do not hesitate to reconsult if any changes in the patient's condition. Thank you for this consultation. Nirali Stewart /9:12 AM /10:55 AM [email or web address]
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
[2017-01-12] MEDS: ERGOCALCIFEROL (VIT D2) 50,000 UNIT CAP PO SCH (16:00)
[2017-01-12] MEDS ORDERED: PANTOPRAZOLE SODIUM 40 MG VIAL IV PUSH SCH (16:45)
--- NOTE | 2017-01-12 16:49 | HHI.GIFU ---
Subjective Remarks Pt resting in bed, c/o that he cannot be on a clear liquid diet b/c it gives him heartburn and makes his stomach feel full. He is having some nausea but no vomiting. no BM. (Dania Jones) Objective Vitals I&O Vital Signs Date Time Temp Pulse Resp B/P (MAP) Pulse Ox O2 Delivery O2 Flow Rate FiO2 01/12/17 16:06 79 01/12/17 15:59 88 01/12/17 15:59 97.8 84 20 137/92 (107) 98 01/12/17 14:27 81 01/12/17 13:03 79 01/12/17 12:22 90 01/12/17 12:22 97.7 90 18 137/89 (105) 98 01/12/17 10:51 Nasal Cannula 01/12/17 10:50 89 01/12/17 09:05 89 01/12/17 08:00 91 01/12/17 07:00 87 01/12/17 07:00 97.4 87 18 117/85 (96) 97 01/12/17 06:00 78 01/12/17 05:00 72 01/12/17 04:00 98 01/12/17 04:00 97.6 86 18 131/76 (94) 97 01/12/17 03:00 84 01/12/17 02:00 90 01/12/17 01:00 78 01/12/17 00:00 97.8 81 18 123/76 (92) 95 01/12/17 00:00 72 01/11/17 23:00 76 01/11/17 22:00 82 01/11/17 21:00 86 01/11/17 20:00 97.6 86 18 129/68 (88) 95 01/11/17 20:00 83 01/11/17 19:22 99 01/11/17 18:11 89 01/11/17 17:00 89 I/O 01/11/17 01/11/17 01/11/17 01/12/17 01/12/17 01/12/17 07:00 15:00 23:00 07:00 15:00 23:00 Intake Total 240 ml 200 ml 200 ml 133 ml Output Total 250 ml 300 ml 400 ml 1525 ml Balance -10 ml -100 ml -200 ml -1392 ml Intake Oral 240 ml 200 ml IV Total 133 ml Other 200 ml Output Urine Total 250 ml 300 ml 400 ml 1525 ml Drainage Total 0 ml Laboratory Laboratory Tests Test 01/11/17 19:54 01/11/17 21:17 01/12/17 07:18 Hemoglobin 9.1 9.3 Hematocrit 29.1 28.9 Blood Urea Nitrogen 77 82 Creatinine 3.44 3.79 Random Glucose 194 228 Calcium Level 7.9 8.3 Sodium Level 138 137 Potassium Level 5.2 5.1 Chloride Level 103 102 Carbon Dioxide Level 25.5 23.7 Anion Gap 10 11 Estimat Glomerular Filtration Rate 17 15 Total Protein 5.8 Parathyroid Hormone (Intact) 398.7 Immunoglobulin G Total 498 Immunoglobulin A 160 Immunoglobulin M 100 Immunoglobulin [place]/Lambda Ratio 1.68 [place] Light Chain Analysis 143 Lambda Light Chain Analysis 85 White Blood Count 15.1 Red Blood Count 3.31 Mean Corpuscular Volume 87.5 Mean Corpuscular Hemoglobin 28.1 Mean Corpuscular Hemoglobin Concent 32.2 Red Cell Distribution Width 16.4 Platelet Count 144 Mean Platelet Volume 9.1 Neutrophils (%) (Auto) 95.6 Lymphocytes (%) (Auto) 0.9 Monocytes (%) (Auto) 3.5 Eosinophils (%) (Auto) 0.0 Basophils (%) (Auto) 0.0 Neutrophils # (Auto) 14.4 Lymphocytes # (Auto) 0.1 Monocytes # (Auto) 0.5 Eosinophils # (Auto) 0.0 Basophils # (Auto) 0.0 CBC Comment DIFF FINAL Differential Comment Albumin 2.8 Phosphorus Level 6.2 Date/Time Source Procedure Growth Status 01/09/17 20:55 Blood Peripheral Aerobic Blood Culture - Preliminary NO GROWTH IN 3 DAYS Resulted 01/09/17 20:55 Blood Peripheral Anaerobic Blood Culture - Preliminary NO GROWTH IN 3 DAYS Resulted 01/09/17 16:15 Urine Random Urine Urine Culture - Preliminary Proteus Mirabilis Staphylococcus Aureus Resulted Physical Exam HEENT: PERLL; normocephalic; atraumatic; no jaundice. NGT clamped CHEST: diminished CARDIAC: RRR ABDOMEN: semifirm, distended, mild diffuse TTP; no hepatosplenomegaly; bowel sounds are present in all four quadrants. EXTREMITIES: No clubbing, cyanosis, + BLE edema. SKIN: Normal; no rash; no jaundice. COFFEE BREWER: No focal deficits; alert and oriented times three. (Dania Jones) Assessment and Plan Plan ASSESSMENT: - Upper GIB, Hematemesis. Pt with recent STEMI, S/P Bare metal stent (12/21). Discharged home on Brilinta, ASA, Prednisone. States he has been having alot of "stomach issues" since he went home and has been taking Maalox. Last night he started vomiting dark red blood (large amount)- multiple episodes for 2-3 hours. He has burning epigastric pain radiating up his esophagus, and a dull ache LUQ---> epigastric area. Denies any hx of PUD. Never had an EGD. Protonix Gtt. Hold Brilinta and ASA for now. S/P egd found large gastric residues, concen for poss SBO vs gastroparesis, GES pending - Anemia, acute blood loss. HH stable - Abdominal pain, n/v, reflux. PPI - CHF, CAD with recent STEMI, Atrial fibrillation. S/P cardiac catheterization (12/21/16)----> acute thrombotic occlusion of the mid and distal left anterior descending coronary artery, successful rheolytic thrombectomy of the left anterior descending coronary artery, successful percutaneous intervention with bare metal stents to the mid and distal left anterior descending coronary artery. He was discharged on Aspirin and Brilinta. Cardiology following, feels that his elevated troponins are secondary to his recent [place] 3 weeks ago and some demand mediated response to his congestive heart failure. - COPD Exacerbation, Bronchitis. Steroids, Abx, Nebs per attending. - Acute on CKD, per renal. - DM, HTN, Hyperlipidemia, LLE wound per attending. PLAN: - suction NGT, if > 500cc keep NGT , if less than 500cc d/c NGT and start full liquids - Hold ASA/Brilinta for now - Protonix Gtt - Transfuse as necessary - Supportive care - Further recommendations to follow based on results of above - Pt seen and examined by Dr. Huerta and myself and this note is written on his behalf (Dania Jones) Physician Comments Patient seen and examined Agree with above Continue current supportive care Monitor lab Transfuse as needed NG tube removed Diet advanced (Zheng Huerta MD) Dania Jones Jan 12, 2017 16:49 Zheng Huerta MD Jan 12, 2017 21:48
[2017-01-12] MEDS ORDERED: PHARMACY ORDERED LAB ONE (21:45)
[2017-01-12] MEDS: ONDANSETRON HCL 4 MG/2 ML VIAL IVP PRN (22:36)
[2017-01-12] MEDS: ATORVASTATIN 40 MG TAB PO SCH (22:40)
[2017-01-12] MEDS: GABAPENTIN 400 MG CAP PO SCH (22:40)
[2017-01-12] MEDS: INSULIN HUMAN NPH 1,000 UNITS/10 ML VIAL SQ SCH (23:39)
[2017-01-12] MEDS: ALPRAZolam 0.25 MG TAB PO PRN (23:39)
[2017-01-13] VITALS (27 sets, daily range): BP systolic 115–125; BP diastolic 68–86; PULSE 62–90; RESP 16–21; TEMP 96.4–97.8; O2SAT 96–100
[2017-01-13] MEDS: RESP: ALBUTEROL 2.5 MG/IPRATROPIUM 0.5 MG NEB (SCH) INH ×5 (00:16→15:42)
[2017-01-13] MEDS: PANTOPRAZOLE INJ 80 MG in SODIUM CHLORIDE 0.9% INJ 100 ML IV SCH ×2 (06:17→15:35)
[2017-01-13] MEDS: BUMETANIDE INJ 1 MG/4 ML VIAL IV PUSH SCH ×3 (06:17→20:18)
[2017-01-13] MEDS: GABAPENTIN 300 MG CAP PO SCH (06:18)
[2017-01-13] MEDS: hydrALAZINE HCL 50 MG TAB PO SCH ×3 (06:18→20:27)
[2017-01-13] MEDS: INSULIN ASPART SUPPLEMENTAL SCALE SQ SCH ×4 (08:00→20:21)
[2017-01-13 08:08] LABS: AUTOMATED NEUTROPHIL # 12.8 TH/MM3 (1.8-7.7); BASOPHIL % 0.2 % (0.0-2.0); EOSINOPHIL % 0.1 % (0.0-4.0); HEMATOCRIT 30.7 % (39.0-51.0); LYMPH % 0.9 % (9.0-44.0); LYMPHOCYTE # 0.1 TH/MM3 (1.0-4.8); MEAN CELL VOLUME 87.2 FL (80.0-100.0); MEAN CORPUSCULAR HEMOGLOBIN 27.2 PG (27.0-34.0); MEAN CORPUSCULAR HGB CONC 31.2 % (32.0-36.0); MONO % 2.1 % (0.0-8.0); NEUT % 96.7 % (16.0-70.0); PLATELET COUNT 134 TH/MM3 (150-450); RED BLOOD COUNT 3.52 MIL/MM3 (4.50-5.90); RED CELL DISTRIBUTION WIDTH 16.3 % (11.6-17.2); WHITE BLOOD COUNT 13.2 TH/MM3 (4.0-11.0)
--- NOTE | 2017-01-13 08:25 | HHI.PR ---
Subjective Remarks f/u; a-fib/ acute kidney injury/ hematemesis resting comfortably with no distress. NG tube has been removed. denies chest pain or sob. good urine output. afebrile. Objective Vitals Vital Signs Date Time Temp Pulse Resp B/P (MAP) Pulse Ox O2 Delivery O2 Flow Rate FiO2 01/13/17 06:39 96.7 69 16 118/82 (94) 98 01/13/17 06:00 67 01/13/17 05:00 63 01/13/17 04:00 70 01/13/17 03:00 70 01/13/17 02:00 70 01/13/17 01:00 70 01/13/17 00:00 72 01/12/17 23:00 78 01/12/17 23:00 97.2 80 16 122/73 (89) 100 01/12/17 22:00 74 01/12/17 21:07 96 Nasal Cannula 2.00 01/12/17 21:00 70 01/12/17 20:30 97.1 75 16 115/72 (86) 98 01/12/17 20:00 72 01/12/17 19:00 74 01/12/17 18:28 72 01/12/17 17:45 84 01/12/17 16:06 79 01/12/17 15:59 88 01/12/17 15:59 97.8 84 20 137/92 (107) 98 01/12/17 14:27 81 01/12/17 13:03 79 01/12/17 12:22 90 01/12/17 12:22 97.7 90 18 137/89 (105) 98 01/12/17 10:51 Nasal Cannula 3.00 01/12/17 10:50 89 01/12/17 09:05 89 I/O 01/12/17 01/12/17 01/12/17 01/13/17 01/13/17 01/13/17 07:00 15:00 23:00 07:00 15:00 23:00 Intake Total 133 ml 240 ml 240 ml Output Total 1525 ml 1200 ml 2150 ml Balance -1392 ml -960 ml -1910 ml Intake Oral 240 ml 240 ml IV Total 133 ml Output Urine Total 1525 ml 1200 ml 2150 ml # Bowel Movements 0 Result Diagram: 01/12/17 0718 01/12/17 0718 Imaging Last Impressions Abdomen X-Ray 01/12/17 0000 Signed Impressions: Service Date/Time: Thursday, January 12, 2017 10:07 - CONCLUSION: 1. No acute abdominal abnormality is identified. 2. Severe atherosclerotic disease. Storm Allen MD Renal Ultrasound 01/11/17 0000 Signed Impressions: Service Date/Time: Wednesday, January 11, 2017 23:22 - CONCLUSION: No evidence of hydronephrosis. 2.8 cm left renal cyst. Clemente Matute MD Chest X-Ray 01/11/17 Signed Impressions: Service Date/Time: Wednesday, January 11, 2017 08:46 - CONCLUSION: Mild improvement vascularity CHF Mike Scott MD Lower Extremity Ultrasound 01/10/17 Signed Impressions: Service Date/Time: December 08:44 - CONCLUSION: 1. Negative left lower extremity DVT study. A Clay's cyst measuring 2.5 x 4.7 x 1 cm. Carlitos Corona MD Toe X-Ray 01/09/17 0000 Signed Impressions: Service Date/Time: Monday, January 09, 2017 17:40 - CONCLUSION: Soft tissue swelling third digit without bony destruction. Wilfredo Maddox MD FACR Objective Remarks GENERAL: in no acute distress but seems uncomfortable with nausea CARDIOVASCULAR; tachycardic with irregular rhythm without murmurs, gallops, or rubs. RESPIRATORY: Clear to auscultation. Breath sounds equal bilaterally. No wheezes , rales, or rhonchi. GASTROINTESTINAL: Abdomen soft, mild generalized tenderness and distended. Normal, active bowel sounds MUSCULOSKELETAL: erythema and swelling of the left third toe.bilateral pedal edema. NEURO: Alert & Oriented x4 to person, place, time, situation. Moves all ext x4 skin; some erythema over the left leg along with superficial ulcer on the left weeks Procedures EGD Medications and IVs Current Medications Methylprednisolone Sodium Succinate (SoluMEDROL INJ) 125 mg ONCE ONCE IV PUSH Last administered on 01/09/17 17:08; Start 01/09/17 at 16:00; Stop 01/09/17 at 16:01; Status DC Albuterol/ Ipratropium (Duoneb Neb) 1 ampule Q15M INH Last administered on 01/09 16:27; Start 01/09/17 at 16:00; Stop 01/09/17 at 16:16; Status DC Furosemide (Lasix Inj) 40 mg ONCE ONCE IV PUSH Last administered on 01/09/17 18:55; Start 01/09/17 at 18:15; Stop 01/09/17 at 18:16; Status DC Trimethoprim/ Sulfamethoxazole (Bactrim Ds 800-160 Mg) 1 tab ONCE ONCE PO Last administered on 01/09/17 20:53; Start 01/09/17 at 20:00; Stop 01/09/17 at 20:01; Status DC Dextrose (D50w (Vial) Inj) 50 ml UNSCH PRN IV PUSH HYPOGLYCEMIA-SEE COMMENTS; Start 01/09/17 at 18:30 Glucagon (Glucagon Inj) 1 mg UNSCH PRN OTHER HYPOGLYCEMIA-SEE COMMENTS; Start 01/09/17 at 18:30 Insulin Aspart (NovoLOG SUPPLEMENTAL SCALE) 1 ACHS SLIDING SCALE SQ Last administered on 01/12/17 23:39; Start 01/09/17 at 21:00 Sodium Chloride (NS Flush) 2 ml UNSCH PRN IV FLUSH FLUSH AFTER USING IV ACCESS ; Start 01/09/17 at 18:30; Stop 01/09/17 at 19:26; Status DC Sodium Chloride (NS Flush) 2 ml BID IV FLUSH ; Start 01/09/17 at 21:00; Stop at 21:00; Status DC Acetaminophen (Tylenol) 650 mg Q4H PRN PO TEMP > 100.4; Start 01/09/17 at 18:30 Ondansetron HCl (Zofran Inj) 4 mg Q6H PRN IVP NAUSEA OR VOMITING Last administered on 01/12/17 22:36; Start 01/09/17 at 18:30 Prochlorperazine (Compazine Supp) 25 mg Q12H PRN RECTAL NAUSEA OR VOMITING; Start 01/09/17 at 18:30 Acetaminophen (Tylenol) 650 mg Q6H PRN PO PAIN SCALE 1 TO 2; Start 01/09/17 at 18:30 Oxycodone/ Acetaminophen (Percocet 5-325 Mg) 1 tab Q6H PRN PO PAIN SCALE 3 TO 5; Start 01/09/17 at 18:30 Oxycodone/ Acetaminophen (Percocet 10-325 Mg) 1 tab Q6H PRN PO PAIN SCALE 6 TO 10; Start 01/09/17 at 18:30 Morphine Sulfate (Morphine Inj) 2 mg Q3H PRN IV PUSH Pain 3-5; if unable to take PO; Start 01/09/17 at 18:30 Morphine Sulfate (Morphine Inj) 4 mg Q3H PRN IV PUSH Pain 6-10;if unable to take PO; Start 01/09/17 at 18:30 Naloxone HCl (Narcan Inj) 0.4 mg UNSCH PRN IV PUSH SEE LABEL COMMENTS; Start at 18:30 Senna/Docusate Sodium (Ofe-Colace) 1 tab BID PO Last administered on 22:39; Start 01/09/17 at 21:00 Magnesium Hydroxide (Milk Of Magnesia Liq) 30 ml Q12H PRN PO MILD - MODERATE CONSTIPATION; Start 01/09/17 at 18:30 Sennosides (Senokot) 17.2 mg Q12H PRN PO MODERATE - SEVERE CONSTIPATION; Start 01/09/17 at 18:30 Bisacodyl (Dulcolax Supp) 10 mg DAILY PRN RECTAL SEVERE CONSITIPATION; Start at 18:30 Lactulose (Lactulose Liq) 30 ml DAILY PRN PO SEVERE CONSITIPATION; Start at 18:30 Furosemide (Lasix Inj) 40 mg Q12H IV Last administered on 01/10/17 21:56; Start 01/09/17 at 21:00; Stop 01/11/17 at 07:58; Status DC Vancomycin HCl 1000 mg/Sodium Chloride 250 ml @ 250 mls/hr Q12H IV ; Start at 18:30; Stop 01/09/17 at 20:22; Status DC Cefepime HCl 1000 mg/Sodium Chloride 100 ml @ 200 mls/hr Q8H IV Last administered on 01/11/17 04:27; Start 01/09/17 at 20:00; Stop 01/11/17 at 08:53 ; Status DC Pharmacy Profile Note 0 ml @ 0 mls/hr UNSCH OTHER ; Start 01/09/17 at 18:30; Stop 01/11/17 at 08:53; Status DC Albuterol/ Ipratropium (Duoneb Neb) 1 ampule Q4HR NEB INH Last administered on 01/13/17 00:16; Start 01/09/17 at 20:00 Albuterol Sulfate (Albuterol Neb) 2.5 mg Q2HR NEB PRN INH SHORTNESS OF BREATH; Start 01/09/17 at 18:45 Budesonide/ Formoterol Fumarate (Symbicort 160-4.5 Inh) 2 puff Q12HR INH Last administered on 01/12/17 22:33; Start 01/09/17 at 21:00 Methylprednisolone Sodium Succinate (SoluMEDROL INJ) 60 mg Q12H IV PUSH Last administered on 01/11/17 21:38; Start 01/09/17 at 21:00; Stop 01/12/17 at 08:13 ; Status DC Guaifenesin (Mucinex Er) 600 mg BID PO Last administered on 01/12/17 22:40; Start 01/09/17 at 21:00 Aspirin (Aspirin Chew) 81 mg DAILY PO Last administered on 01/10/17 08:31; Start 01/09/17 at 20:00; Status Future Hold Atorvastatin Calcium (Lipitor) 40 mg HS PO Last administered on 01/12/17 22:40 ; Start 01/09/17 at 21:00 Gabapentin (Neurontin) 300 mg DAILY@0600 PO Last administered on 01/13/17 06: 18; Start 01/10/17 at 06:00 Hydralazine HCl (Apresoline) 50 mg Q8HR PO Last administered on 01/13/17 06:18 ; Start 01/09/17 at 22:00 Insulin Human NPH (NovoLIN N INJ) 22 units HS SQ Last administered on 23:39; Start 01/09/17 at 21:00 Isosorbide Mononitrate (Imdur) 60 mg DAILY@07 PO Last administered on 06:38; Start 01/10/17 at 07:00 Lactobacillus Acidophilus (Lactinex) 1 tab TIDAC PO Last administered on 17:00; Start 01/10/17 at 08:00 Ticagrelor (Brilinta) 90 mg BID PO Last administered on 01/10/17 21:58; Start 01/09/17 at 21:00; Status Future Hold Tiotropium [place] (Spiriva Inh) 18 mcg DAILY INH ; Start 01/10/17 at 09:00; Stop 01/10/17 at 09:00; Status DC Pantoprazole Sodium (Protonix) 20 mg DAILY PO Last administered on 01/10/17 08 :31; Start 01/10/17 at 09:00; Stop 01/11/17 at 00:52; Status DC Gabapentin (Neurontin) 400 mg HS PO Last administered on 01/12/17 22:40; Start 01/09/17 at 21:00 Nitroglycerin (Nitrostat Sl) 0.4 mg Q5M PRN SL CHEST PAIN; Start 01/09/17 at 18 :45 Heparin Sodium/ Dextrose 250 ml @ 16.8 mls/hr TITRATE PRN IV Coagulation management Last administered on 01/10/17 16:40; Start 01/09/17 at 19:00; Status Future Hold Sodium Chloride (NS Flush) 2 ml BID IV FLUSH Last administered on 01/12/17 22: 41; Start 01/09/17 at 21:00 Sodium Chloride (NS Flush) 2 ml UNSCH PRN IV FLUSH FLUSH AFTER USING IV ACCESS ; Start 01/09/17 at 19:00 Alprazolam (Xanax) 0.25 mg Q8H PRN PO ANXIETY Last administered on 01/12/17 23 :39; Start 01/09/17 at 19:00 Vancomycin HCl 1500 mg/Sodium Chloride 515 ml @ 257.5 mls/ hr Q24H IV ; Start 01/09/17 at 22:00; Stop 01/10/17 at 10:03; Status DC Miscellaneous Information SPECIFIC LAB TO BE DRAWN:VANCO TROUGH DATE TO BE DRVernell.. ONCE ONCE .XX ; Start 01/12/17 at 21:45; Stop 01/12/17 at 21:46; Status Cancel Furosemide (Lasix Inj) 40 mg ONCE ONCE IV PUSH Last administered on 01/10/17 01:36; Start 01/10/17 at 01:30; Stop 01/10/17 at 01:31; Status DC Metoprolol Tartrate (Lopressor) 50 mg Q12HR PO Last administered on 01/12/17 22:40; Start 01/10/17 at 09:00 Vancomycin HCl 1500 mg/Sodium Chloride 515 ml @ 257.5 mls/ hr ONCE ONCE IV Last administered on 01/10/17 11:00; Start 01/10/17 at 11:00; Stop 01/10/17 at 12:59; Status DC Al Hydrox/Mg Hydrox/Simethicone (Mag-Al Plus Susp Liq) 30 ml ONCE ONCE PO Last administered on 01/10/17 22:45; Start 01/10/17 at 22:45; Stop 01/10/17 at 22:46; Status DC Pantoprazole Sodium 80 mg/ Sodium Chloride 100 ml @ 10 mls/hr Q10H IV Last administered on 01/13/17 06:17; Start 01/11/17 at 02:00 Pantoprazole Sodium 80 mg/ Sodium Chloride 35 ml @ 420 mls/hr Q5M ONCE IV Last administered on 01/11/17 01:49; Start 01/11/17 at 01:49; Stop 01/11/17 at 01:53; Status DC Propofol (Diprivan 200 Mg/20 ml Inj) 400 mg STK-MED ONCE .ROUTE ; Start at 12:10; Stop 01/11/17 at 12:11; Status DC Lactated Ringer's 1,000 ml @ 30 mls/hr Q24H ONCE IV Last administered on 12:19; Start 01/11/17 at 13:00; Stop 01/12/17 at 12:59; Status DC Miscellaneous Information ALL NURSING DEPARTME... UNSCH PRN .XX SEE LABEL COMMENTS; Start 01/11/17 at 12:56; Stop 01/12/17 at 12:55; Status DC Bumetanide (Bumex Inj) 2 mg Q8H IV PUSH Last administered on 01/13/17 06:17; Start 01/11/17 at 20:00 Chlorothiazide Sodium (Diuril Inj) 500 mg ONCE ONCE IV Last administered on 21:57; Start 01/11/17 at 20:00; Stop 01/11/17 at 21:04; Status DC Bacitracin (Bacitracin Oint Packet) 0.9 gm DAILY TOPICAL ; Start 01/12/17 at 09: 00 Methylprednisolone Sodium Succinate (SoluMEDROL INJ) 40 mg Q12H IV PUSH Last administered on 01/12/17 22:41; Start 01/12/17 at 09:00 Cefepime HCl 1000 mg/Sodium Chloride 100 ml @ 200 mls/hr DAILY IV Last administered on 01/12/17 09:10; Start 01/12/17 at 09:00 Ergocalciferol (Drisdol) 50,000 units Q7D PO Last administered on 01/12/17 16: 00; Start 01/12/17 at 16:00 Pantoprazole Sodium (Protonix Inj) 40 mg Q24H IV PUSH ; Start 01/12/17 at 16:45 ; Status UNV A/P Assessment and Plan A/P Questionable CHF exacerbation COPD exacerbation - secondary to medication noncompliance - Chest x-ray personally revealing findings suspicious for congestive failure - echocardiogram with EF 65% - started on Bumex - continue to taper down IV methylprednisolone . - continue neb treatment - Supplemental oxygen to maintain O2 sats above 92% - Continue home bronchodilators - Monitor respiratory status - IS - Strict I&Os - Salt and fluid restricted diet Chest pain with elevated troponin CAD s/p cardiac catheterization with implantation of bare metal stent 12/21/16 Atrial fibrillation -stopped heparin drip due to GI bleed - Continuous cardiac monitoring - Supplemental oxygen - hold Brilinta and aspirin due to GI bleed - Continue isosorbide 50 mg daily - continue statin - continue with pain control -cardiology following. upper GI bleed - s/p EGD; large gastric residual and gastritis - heparin drip on hold- will resume aspirin and Brilinta when ok with GI - NG tube has been removed. - monitor H/H and transfuse as needed - continue protonix dip -gastric emptying study pending. - GI following acute kidney injury superimposed on chronic renal insufficiency --renal US with no hydronephrosis - started on Bumex -SPEP to be followed. - will monitor the renal function closely -nephrology following. DM - Accu-Chek - Insulin sliding scale - Continue home dose of insulin HTN HLD - Continue antihypertensive medications - resumed home statin therapy - Monitor BP Neuropathy - Resumed home gabapentin LLE wound with left third toe swelling and erythema - Wound care consult appreciated. - -blood cultures negative so far -podiatry consult appreciated; no need for antibiotics; will stop Cefepime- -venous doppler of the left leg negative for DVT Incidental finding of 1 cm irregular nodule right upper lobe - CT chest 12/23/16 - Recommend follow-up CT at approximately 3, 9 and 24 months and or contrast enhanced CT, PET and/or biopsy Chronic indwelling [place] with asymptomatic bacteriuria ; afebrile- likely contamination- will dc antibiotics. GI prophylaxis - PPI DVT prophylaxis -heparin discontinued due to GI bleed. Bob Phillips MD Jan 13, 2017 08:25
[2017-01-13 08:40] LABS: HEMO FLAGS AUTO DIFF; SCAN/DIFF AUTO DIFF CONFIRMED
[2017-01-13 08:53] LABS: BICARBONATE 25.1 MEQ/L (21.0-32.0)
[2017-01-13] MEDS: BACITRACIN OINT 0.9 GM PKT TOPICAL SCH (09:00)
[2017-01-13 09:08] LABS: POTASSIUM 5.7 MEQ/L (3.5-5.1)
[2017-01-13] MEDS: DOCUSATE SODIUM 50 MG/SENNA 8.6 MG TAB PO SCH ×2 (09:43→20:19)
[2017-01-13] MEDS: BUDESONIDE-FORMOTEROL 160/4.5 MCG INHALER INH SCH ×2 (09:44→20:18)
[2017-01-13] MEDS: guaiFENesin E.R. 600 MG TAB PO SCH ×2 (09:44→20:20)
[2017-01-13] MEDS: SODIUM CHLORIDE 0.9% FLUSH 10 ML FLUSH IV FLUSH SCH ×2 (09:44→20:18)
[2017-01-13] MEDS: LACTOBACILLUS ACIDOPHILUS TAB PO SCH ×3 (09:44→17:11)
[2017-01-13] MEDS: ISOSORBIDE MONONITRATE 60 MG TAB PO SCH (09:44)
[2017-01-13] MEDS: METOPROLOL TARTRATE 50 MG TAB PO SCH ×2 (09:44→20:19)
[2017-01-13] MEDS: methylPREDNISolone SOD SUCC 40 MG/1 ML VIAL IV PUSH SCH ×2 (09:54→20:18)
--- NOTE | 2017-01-13 09:59 | HHI.GIFU ---
Subjective Remarks Lying in bed in no acute distress. Denies abdominal pain. Denies nausea or vomiting. States he intermittently will spit up a small amount of blood. Tolerating clear liquid diet and is requesting to advance diet. (Jackie Ram) Objective Vitals I&O Vital Signs Date Time Temp Pulse Resp B/P (MAP) Pulse Ox O2 Delivery O2 Flow Rate FiO2 01/13/17 09:06 98 Nasal Cannula 2.00 01/13/17 06:39 96.7 69 16 118/82 (94) 98 01/13/17 06:00 67 01/13/17 05:00 63 01/13/17 04:00 70 01/13/17 03:00 70 01/13/17 02:00 70 01/13/17 01:00 70 01/13/17 00:00 72 01/12/17 23:00 78 01/12/17 23:00 97.2 80 16 122/73 (89) 100 01/12/17 22:00 74 01/12/17 21:07 96 Nasal Cannula 2.00 01/12/17 21:00 70 01/12/17 20:30 97.1 75 16 115/72 (86) 98 01/12/17 20:00 72 01/12/17 19:00 74 01/12/17 18:28 72 01/12/17 17:45 84 01/12/17 16:06 79 01/12/17 15:59 88 01/12/17 15:59 97.8 84 20 137/92 (107) 98 01/12/17 14:27 81 01/12/17 13:03 79 01/12/17 12:22 90 01/12/17 12:22 97.7 90 18 137/89 (105) 98 01/12/17 10:51 Nasal Cannula 3.00 01/12/17 10:50 89 I/O 01/12/17 01/12/17 01/12/17 01/13/17 01/13/17 01/13/17 07:00 15:00 23:00 07:00 15:00 23:00 Intake Total 133 ml 240 ml 240 ml Output Total 1525 ml 1200 ml 2150 ml Balance -1392 ml -960 ml -1910 ml Intake Oral 240 ml 240 ml IV Total 133 ml Output Urine Total 1525 ml 1200 ml 2150 ml # Bowel Movements 0 Laboratory Laboratory Tests Test 01/13/17 07:36 White Blood Count 13.2 Red Blood Count 3.52 Hemoglobin 9.6 Hematocrit 30.7 Mean Corpuscular Volume 87.2 Mean Corpuscular Hemoglobin 27.2 Mean Corpuscular Hemoglobin Concent 31.2 Red Cell Distribution Width 16.3 Platelet Count 134 Mean Platelet Volume 9.0 Neutrophils (%) (Auto) 96.7 Lymphocytes (%) (Auto) 0.9 Monocytes (%) (Auto) 2.1 Eosinophils (%) (Auto) 0.1 Basophils (%) (Auto) 0.2 Neutrophils # (Auto) 12.8 Lymphocytes # (Auto) 0.1 Monocytes # (Auto) 0.3 Eosinophils # (Auto) 0.0 Basophils # (Auto) 0.0 CBC Comment AUTO DIFF Differential Comment AUTO DIFF CONFIRMED Blood Urea Nitrogen 88 Creatinine 3.88 Random Glucose 169 Calcium Level 7.9 Sodium Level 136 Potassium Level 5.7 Chloride Level 101 Carbon Dioxide Level 25.1 Anion Gap 10 Estimat Glomerular Filtration Rate 15 Date/Time Source Procedure Growth Status 01/09/17 20:55 Blood Peripheral Aerobic Blood Culture - Preliminary NO GROWTH IN 3 DAYS Resulted 01/09/17 20:55 Blood Peripheral Anaerobic Blood Culture - Preliminary NO GROWTH IN 3 DAYS Resulted 01/09/17 16:15 Urine Random Urine Urine Culture - Final Proteus Mirabilis Staphylococcus Aureus Complete Imaging Last Impressions Abdomen X-Ray 01/12/17 0000 Signed Impressions: Service Date/Time: Thursday, January 12, 2017 10:07 - CONCLUSION: 1. No acute abdominal abnormality is identified. 2. Severe atherosclerotic disease. Storm Allen MD Renal Ultrasound 01/11/17 0000 Signed Impressions: Service Date/Time: Wednesday, January 11, 2017 23:22 - CONCLUSION: No evidence of hydronephrosis. 2.8 cm left renal cyst. Clemente Matute MD Chest X-Ray 01/11/17 0000 Signed Impressions: Service Date/Time: Wednesday, January 11, 2017 08:46 - CONCLUSION: Mild improvement vascularity CHF Mike Scott MD Lower Extremity Ultrasound 01/10/17 0000 Signed Impressions: Service Date/Time: December 08:44 - CONCLUSION: 1. Negative left lower extremity DVT study. A Clay's cyst measuring 2.5 x 4.7 x 1 cm. Carlitos Corona MD Toe X-Ray 01/09/17 0000 Signed Impressions: Service Date/Time: Monday, January 09, 2017 17:40 - CONCLUSION: Soft tissue swelling third digit without bony destruction. Wilfredo Maddox MD FACR Physical Exam HEENT: Normocephalic. CHEST: CTA CARDIAC: Tachycardic, irregular rhythm. ABDOMEN: Soft, obese, mild diffuse TTP EXTREMITIES: No clubbing, cyanosis, + BLE pedal edema. SKIN: Normal; no rash; no jaundice. AMMUNITION SPECIALIST: No focal deficits; alert and oriented x 3 (Jackie Ram) Assessment and Plan Plan ASSESSMENT: - Upper GIB, Hematemesis. Recent STEMI, s/p Bare metal stent (12/21). Discharged home on Brilinta, ASA, Prednisone. Reports a lot of "stomach issues" since he went home and has been taking Maalox. Started vomiting dark red blood (large amount)- multiple episodes for 2-3 hours. Was having epigastric pain radiating up his esophagus, and a dull ache LUQ--- > epigastric area. Denies any hx of PUD. No previous EGD. Protonix Gtt. Brilinta and ASA on hold. EGD 01/11/17--Large gastric residuals and gastritis. There is a small concern for possible small bowel obstruction although the residual could also be related to gastroparesis found large gastric residues. GES planned for Saturday. - Anemia, acute blood loss. HH stable - Abdominal pain, n/v, reflux. Improving. PPI - CHF, CAD with recent STEMI, Atrial fibrillation. S/P cardiac catheterization ( 12/21/16)--acute thrombotic occlusion of the mid and distal left anterior descending coronary artery, successful rheolytic thrombectomy of the left anterior descending coronary artery, successful percutaneous intervention with bare metal stents to the mid and distal left anterior descending coronary artery. He was discharged on Aspirin and Brilinta. Cardiology following, feels that his elevated troponin are secondary to his recent LA 3 weeks ago and some demand mediated response to his congestive heart failure. - COPD Exacerbation, Bronchitis. Steroids, Abx, Nebs per attending. - Acute on CKD, per renal. - DM, HTN, Hyperlipidemia, LLE wound per attending. 01/13/17--NGT removed yesterday. Tolerating clear liquid diet and asking for regular food. Reports his heartburn has improved with medication. Denies N/V. States he has been spitting up a small amount of blood. Denies abdominal pain. HH 9.6.7. PLAN: - GES Saturday - NPO after MN - Hold ASA/Brilinta for now - Protonix Gtt - Monitor HH, transfuse as necessary - Supportive care - Further recommendations to follow based on results of above Patient seen and examined by Dr. Huerta and myself and this note is written on his behalf (Jackie Ram) Physician Comments Patient seen and examined Agree with above Continue with current supportive care And monitor labs Await gastric emptying scan tomorrow Probably can resume anticoagulation at this point (Zheng Huerta MD) Jackie Ram Jan 13, 2017 09:59 Zheng Huerta MD Jan 13, 2017 22:08
--- NOTE | 2017-01-13 10:15 | PD.CARD.PN ---
Subjective Subjective Remarks Doing well, rate controlled afib. Objective Medications Administered Medications Medications (Trade) Dose Ordered Sig/Marcos Route PRN Reason Start Time Stop Time Status Last Admin Dose Admin Insulin Aspart (NovoLOG SUPPLEMENTAL SCALE) 1 ACHS SLIDING SCALE SQ 01/09/17 21:00 01/13/17 08:00 Ondansetron HCl (Zofran Inj) 4 mg Q6H PRN IVP NAUSEA OR VOMITING 01/09/17 18:30 01/12/17 22:36 Senna/Docusate Sodium (Ofe-Colace) 1 tab BID PO 01/09/17 21:00 01/13/17 09:43 Albuterol/ Ipratropium (Duoneb Neb) 1 ampule Q4HR NEB INH 01/09/17 20:00 01/13/17 09:04 Budesonide/ Formoterol Fumarate (Symbicort 160-4.5 Inh) 2 puff Q12HR INH 01/09/17 21:00 01/13/17 09:44 Guaifenesin (Mucinex Er) 600 mg BID PO 01/09/17 21:00 01/13/17 09:44 Aspirin (Aspirin Chew) 81 mg DAILY PO 01/09/17 20:00 Future Hold 01/10/17 08:31 Atorvastatin Calcium (Lipitor) 40 mg HS PO 01/09/17 21:00 01/12/17 22:40 Gabapentin (Neurontin) 300 mg DAILY@0600 PO 01/10/17 06:00 01/13/17 06:18 Hydralazine HCl (Apresoline) 50 mg Q8HR PO 01/09/17 22:00 01/13/17 06:18 Insulin Human NPH (NovoLIN N INJ) 22 units HS SQ 01/09/17 21:00 01/12/17 23:39 Isosorbide Mononitrate (Imdur) 60 mg DAILY@07 PO 01/10/17 07:00 01/13/17 09:44 Lactobacillus Acidophilus (Lactinex) 1 tab TIDAC PO 01/10/17 08:00 01/13/17 09:44 Ticagrelor (Brilinta) 90 mg BID PO 01/09/17 21:00 Future Hold 01/10/17 21:58 Gabapentin (Neurontin) 400 mg HS PO 01/09/17 21:00 01/12/17 22:40 Heparin Sodium/ Dextrose 250 ml @ 16.8 mls/hr TITRATE PRN IV Coagulation management 01/09/17 19:00 Future Hold 01/10/17 16:40 Sodium Chloride (NS Flush) 2 ml BID IV FLUSH 01/09/17 21:00 01/13/17 09:44 Alprazolam (Xanax) 0.25 mg Q8H PRN PO ANXIETY 01/09/17 19:00 01/12/17 23:39 Metoprolol Tartrate (Lopressor) 50 mg Q12HR PO 01/10/17 09:00 01/13/17 09:44 Pantoprazole Sodium 80 mg/ Sodium Chloride 100 ml @ 10 mls/hr Q10H IV 01/11/17 02:00 01/13/17 06:17 Bumetanide (Bumex Inj) 2 mg Q8H IV PUSH 01/11/17 20:00 01/13/17 06:17 Bacitracin (Bacitracin Oint Packet) 0.9 gm DAILY TOPICAL 01/12/17 09:00 01/13/17 09:00 Ergocalciferol (Drisdol) 50,000 units Q7D PO 01/12/17 16:00 01/12/17 16:00 Methylprednisolone Sodium Succinate (SoluMEDROL INJ) 20 mg Q12H IV PUSH 01/13/17 09:00 01/13/17 09:54 Vital Signs / I&O Vital Signs Date Time Temp Pulse Resp B/P (MAP) Pulse Ox O2 Delivery O2 Flow Rate FiO2 01/13/17 09:06 98 Nasal Cannula 2.00 01/13/17 06:39 96.7 69 16 118/82 (94) 98 01/13/17 06:00 67 01/13/17 05:00 63 01/13/17 04:00 70 01/13/17 03:00 70 01/13/17 02:00 70 01/13/17 01:00 70 01/13/17 00:00 72 01/12/17 23:00 78 01/12/17 23:00 97.2 80 16 122/73 (89) 100 01/12/17 22:00 74 01/12/17 21:07 96 Nasal Cannula 2.00 01/12/17 21:00 70 01/12/17 20:30 97.1 75 16 115/72 (86) 98 01/12/17 20:00 72 01/12/17 19:00 74 01/12/17 18:28 72 01/12/17 17:45 84 01/12/17 16:06 79 01/12/17 15:59 88 01/12/17 15:59 97.8 84 20 137/92 (107) 98 01/12/17 14:27 81 01/12/17 13:03 79 01/12/17 12:22 90 01/12/17 12:22 97.7 90 18 137/89 (105) 98 01/12/17 10:51 Nasal Cannula 3.00 01/12/17 10:50 89 I/O 01/12/17 01/12/17 01/12/17 01/13/17 01/13/17 01/13/17 07:00 15:00 23:00 07:00 15:00 23:00 Intake Total 133 ml 240 ml 240 ml Output Total 1525 ml 1200 ml 2150 ml Balance -1392 ml -960 ml -1910 ml Intake Oral 240 ml 240 ml IV Total 133 ml Output Urine Total 1525 ml 1200 ml 2150 ml # Bowel Movements 0 Physical Exam GENERAL: This is a well-nourished, well-developed patient, in no apparent distress. CARDIOVASCULAR: Regular rate and irregular rhythm without murmurs, gallops, or rubs. RESPIRATORY: Clear to auscultation. Breath sounds equal bilaterally. No wheezes , rales, or rhonchi. GASTROINTESTINAL: Abdomen soft, non-tender, nondistended. Normal, active bowel sounds MUSCULOSKELETAL: 1+ edema bilat. NEURO: Alert & Oriented x4 to person, place, time, situation. Moves all ext x4 Laboratory Laboratory Tests Test 01/13/17 07:36 White Blood Count 13.2 TH/MM3 Red Blood Count 3.52 MIL/MM3 Hemoglobin 9.6 GM/DL Hematocrit 30.7 % Mean Corpuscular Volume 87.2 FL Mean Corpuscular Hemoglobin 27.2 PG Mean Corpuscular Hemoglobin Concent 31.2 % Red Cell Distribution Width 16.3 % Platelet Count 134 TH/MM3 Mean Platelet Volume 9.0 FL Neutrophils (%) (Auto) 96.7 % Lymphocytes (%) (Auto) 0.9 % Monocytes (%) (Auto) 2.1 % Eosinophils (%) (Auto) 0.1 % Basophils (%) (Auto) 0.2 % Neutrophils # (Auto) 12.8 TH/MM3 Lymphocytes # (Auto) 0.1 TH/MM3 Monocytes # (Auto) 0.3 TH/MM3 Eosinophils # (Auto) 0.0 TH/MM3 Basophils # (Auto) 0.0 TH/MM3 CBC Comment AUTO DIFF Differential Comment AUTO DIFF CONFIRMED Blood Urea Nitrogen 88 MG/DL Creatinine 3.88 MG/DL Random Glucose 169 MG/DL Calcium Level 7.9 MG/DL Sodium Level 136 MEQ/L Potassium Level 5.7 MEQ/L Chloride Level 101 MEQ/L Carbon Dioxide Level 25.1 MEQ/L Anion Gap 10 MEQ/L Estimat Glomerular Filtration Rate 15 ML/MIN Imaging Last Impressions Abdomen X-Ray 01/12/17 0000 Signed Impressions: Service Date/Time: Thursday, January 12, 2017 10:07 - CONCLUSION: 1. No acute abdominal abnormality is identified. 2. Severe atherosclerotic disease. Storm Allen MD Renal Ultrasound 01/11/17 0000 Signed Impressions: Service Date/Time: Wednesday, January 11, 2017 23:22 - CONCLUSION: No evidence of hydronephrosis. 2.8 cm left renal cyst. Clemente Matute MD Chest X-Ray 01/11/17 0000 Signed Impressions: Service Date/Time: Wednesday, January 11, 2017 08:46 - CONCLUSION: Mild improvement vascularity CHF Mike Scott MD Lower Extremity Ultrasound 01/10/17 0000 Signed Impressions: Service Date/Time: December 08:44 - CONCLUSION: 1. Negative left lower extremity DVT study. A Clay's cyst measuring 2.5 x 4.7 x 1 cm. Carlitos Corona MD Toe X-Ray 01/09/17 0000 Signed Impressions: Service Date/Time: Monday, January 09, 2017 17:40 - CONCLUSION: Soft tissue swelling third digit without bony destruction. Wilfredo Maddox MD FACR Assessment and Plan Problem List: (1) Atrial fibrillation ICD Codes: I48.91 - Atrial fibrillation Status: Chronic Plan: rate controlled; not on anticoagulation due to hemoptysis (2) Congestive heart failure ICD Codes: I50.9 - Congestive heart failure Status: Acute Plan: now on bumex but cr rising (again); defer to renal Assessment and Plan Dr. Rodríguez will return tomorrow Problem Qualifiers (1) Congestive heart failure: Qualified Codes: I50.23 - Acute on chronic systolic (congestive) heart failure Law Vega MD Jan 13, 2017 10:15
[2017-01-13] MEDS ORDERED: SODIUM POLYSTYRENE SULFONATE SUSP 15 GM/60 ML CUP PO ONE ×2 (11:00→11:15)
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
[2017-01-13] MEDS ORDERED: CHLOROTHIAZIDE SOD 500 MG VIAL IV ONE (11:15)
[2017-01-13] MEDS: GABAPENTIN 400 MG CAP PO SCH (20:19)
[2017-01-13] MEDS: ATORVASTATIN 40 MG TAB PO SCH (20:19)
[2017-01-13] MEDS: INSULIN HUMAN NPH 1,000 UNITS/10 ML VIAL SQ SCH (20:19)
[2017-01-14] VITALS (24 sets, daily range): BP systolic 118–143; BP diastolic 69–90; PULSE 60–114; RESP 20–22; TEMP 97–97.4; O2SAT 97–98
[2017-01-14] MEDS: PANTOPRAZOLE INJ 80 MG in SODIUM CHLORIDE 0.9% INJ 100 ML IV SCH (00:39)
[2017-01-14] MEDS: BUMETANIDE INJ 1 MG/4 ML VIAL IV PUSH SCH ×3 (03:54→21:35)
[2017-01-14] MEDS: ISOSORBIDE MONONITRATE 60 MG TAB PO SCH (05:23)
[2017-01-14] MEDS: GABAPENTIN 300 MG CAP PO SCH (05:23)
[2017-01-14] MEDS: hydrALAZINE HCL 50 MG TAB PO SCH ×3 (05:23→21:35)
--- NOTE | 2017-01-14 07:36 | PD.CARD.PN ---
Subjective Subjective Remarks CV stable. HR well controlled. No further hemoptysis Objective Vital Signs / I&O Vital Signs Date Time Temp Pulse Resp B/P (MAP) Pulse Ox O2 Delivery O2 Flow Rate FiO2 01/14/17 06:00 65 01/14/17 05:00 60 01/14/17 04:00 60 01/14/17 03:47 97.0 68 22 119/73 (88) 97 01/14/17 03:00 66 01/14/17 02:00 63 01/14/17 01:00 70 01/14/17 00:00 114 01/13/17 23:59 97.4 65 18 125/86 (99) 100 01/13/17 23:00 69 01/13/17 22:00 84 01/13/17 21:00 68 01/13/17 20:00 68 01/13/17 19:00 97.8 73 18 115/68 (84) 96 01/13/17 19:00 63 01/13/17 18:00 82 01/13/17 17:00 78 01/13/17 16:00 68 01/13/17 15:00 66 01/13/17 15:00 62 01/13/17 15:00 97.3 83 21 118/80 (93) 96 01/13/17 14:00 74 01/13/17 13:00 76 01/13/17 12:00 66 01/13/17 12:00 66 01/13/17 11:00 96.4 90 20 119/78 (92) 99 01/13/17 11:00 67 01/13/17 10:00 66 01/13/17 09:06 98 Nasal Cannula 2.00 01/13/17 09:00 66 01/13/17 08:00 66 I/O 01/13/17 01/13/17 01/13/17 01/14/17 01/14/17 01/14/17 07:00 15:00 23:00 07:00 15:00 23:00 Intake Total 240 ml 800 ml 480 ml Output Total 2150 ml 2200 ml 3025 ml Balance -1910 ml -1400 ml -2545 ml Intake Oral 240 ml 800 ml 480 ml Output Urine Total 2150 ml 2200 ml 3025 ml # Bowel Movements 0 Physical Exam Lungs clear irregular rhythm @ 80 Abd soft Laboratory Laboratory Tests Test 01/13/17 07:36 01/13/17 18:01 01/14/17 05:14 White Blood Count 13.2 TH/MM3 Red Blood Count 3.52 MIL/MM3 Hemoglobin 9.6 GM/DL Hematocrit 30.7 % Mean Corpuscular Volume 87.2 FL Mean Corpuscular Hemoglobin 27.2 PG Mean Corpuscular Hemoglobin Concent 31.2 % Red Cell Distribution Width 16.3 % Platelet Count 134 TH/MM3 Mean Platelet Volume 9.0 FL Neutrophils (%) (Auto) 96.7 % Lymphocytes (%) (Auto) 0.9 % Monocytes (%) (Auto) 2.1 % Eosinophils (%) (Auto) 0.1 % Basophils (%) (Auto) 0.2 % Neutrophils # (Auto) 12.8 TH/MM3 Lymphocytes # (Auto) 0.1 TH/MM3 Monocytes # (Auto) 0.3 TH/MM3 Eosinophils # (Auto) 0.0 TH/MM3 Basophils # (Auto) 0.0 TH/MM3 CBC Comment AUTO DIFF Differential Comment AUTO DIFF CONFIRMED Blood Urea Nitrogen 88 MG/DL Creatinine 3.88 MG/DL Random Glucose 169 MG/DL Calcium Level 7.9 MG/DL Sodium Level 136 MEQ/L Potassium Level 5.7 MEQ/L 4.2 MEQ/L Chloride Level 101 MEQ/L Carbon Dioxide Level 25.1 MEQ/L Anion Gap 10 MEQ/L Estimat Glomerular Filtration Rate 15 ML/MIN Assessment and Plan Problem List: (1) Atrial fibrillation ICD Codes: I48.91 - Atrial fibrillation Status: Chronic Plan: CV stable. Good urine output. Hold anticoagulation secondary to previous bleeding diathesis (2) Congestive heart failure ICD Codes: I50.9 - Congestive heart failure Status: Acute Assessment and Plan CHF clinically resolved. Will d/c lasix and check BMp in AM. Recheck Cxr and BNP A fib rate controlled on metoprolol will continue Suggest GI consult- will hold breakfast this morning Problem Qualifiers (1) Congestive heart failure: Qualified Codes: I50.23 - Acute on chronic systolic (congestive) heart failure Kenji Rodríguez MD Jan 14, 2017 07:36
[2017-01-14 07:52] LABS: BICARBONATE 31.3 MEQ/L (21.0-32.0); POTASSIUM 4.2 MEQ/L (3.5-5.1)
[2017-01-14] MEDS: INSULIN ASPART SUPPLEMENTAL SCALE SQ SCH ×4 (08:00→21:00)
--- NOTE | 2017-01-14 08:02 | HHI.PR ---
Subjective Remarks in no acute distress. denies chest pain. no GI bleed over night. afebrile. Objective Vitals Vital Signs Date Time Temp Pulse Resp B/P (MAP) Pulse Ox O2 Delivery O2 Flow Rate FiO2 01/14/17 06:00 65 01/14/17 05:00 60 01/14/17 04:00 60 01/14/17 03:47 97.0 68 22 119/73 (88) 97 01/14/17 03:00 66 01/14/17 02:00 63 01/14/17 01:00 70 01/14/17 00:00 114 01/13/17 23:59 97.4 65 18 125/86 (99) 100 01/13/17 23:00 69 01/13/17 22:00 84 01/13/17 21:00 68 01/13/17 20:00 68 01/13/17 19:00 97.8 73 18 115/68 (84) 96 01/13/17 19:00 63 01/13/17 18:00 82 01/13/17 17:00 78 01/13/17 16:00 68 01/13/17 15:00 66 01/13/17 15:00 62 01/13/17 15:00 97.3 83 21 118/80 (93) 96 01/13/17 14:00 74 01/13/17 13:00 76 01/13/17 12:00 66 01/13/17 12:00 66 01/13/17 11:00 96.4 90 20 119/78 (92) 99 01/13/17 11:00 67 01/13/17 10:00 66 01/13/17 09:06 98 Nasal Cannula 2.00 01/13/17 09:00 66 01/13/17 08:00 66 I/O 01/13/17 01/13/17 01/13/17 01/14/17 01/14/17 01/14/17 07:00 15:00 23:00 07:00 15:00 23:00 Intake Total 240 ml 800 ml 480 ml Output Total 2150 ml 2200 ml 3025 ml Balance -1910 ml -1400 ml -2545 ml Intake Oral 240 ml 800 ml 480 ml Output Urine Total 2150 ml 2200 ml 3025 ml # Bowel Movements 0 Result Diagram: 01/13/17 0736 01/13/17 1801 Imaging Last Impressions Abdomen X-Ray 01/12/17 0000 Signed Impressions: Service Date/Time: Thursday, January 12, 2017 10:07 - CONCLUSION: 1. No acute abdominal abnormality is identified. 2. Severe atherosclerotic disease. Storm Allen MD Renal Ultrasound 01/11/17 0000 Signed Impressions: Service Date/Time: Wednesday, January 11, 2017 23:22 - CONCLUSION: No evidence of hydronephrosis. 2.8 cm left renal cyst. Clemente Matute MD Chest X-Ray 01/11/17 0000 Signed Impressions: Service Date/Time: Wednesday, January 11, 2017 08:46 - CONCLUSION: Mild improvement vascularity CHF Mike Scott MD Lower Extremity Ultrasound 01/10/17 0000 Signed Impressions: Service Date/Time: December 08:44 - CONCLUSION: 1. Negative left lower extremity DVT study. A Clay's cyst measuring 2.5 x 4.7 x 1 cm. Carlitos Corona MD Toe X-Ray 01/09/17 0000 Signed Impressions: Service Date/Time: Monday, January 09, 2017 17:40 - CONCLUSION: Soft tissue swelling third digit without bony destruction. Wilfredo Maddox MD FACR Objective Remarks GENERAL: in no acute distress but seems uncomfortable with nausea CARDIOVASCULAR; tachycardic with irregular rhythm without murmurs, gallops, or rubs. RESPIRATORY: Clear to auscultation. Breath sounds equal bilaterally. No wheezes , rales, or rhonchi. GASTROINTESTINAL: Abdomen soft, mild generalized tenderness and distended. Normal, active bowel sounds MUSCULOSKELETAL: erythema and swelling of the left third toe.bilateral pedal edema. NEURO: Alert & Oriented x4 to person, place, time, situation. Moves all ext x4 skin; some erythema over the left leg along with superficial ulcer on the left weeks Procedures EGD Medications and IVs Current Medications Methylprednisolone Sodium Succinate (SoluMEDROL INJ) 125 mg ONCE ONCE IV PUSH Last administered on 01/09/17 17:08; Start 01/09/17 at 16:00; Stop 01/09/17 at 16:01; Status DC Albuterol/ Ipratropium (Duoneb Neb) 1 ampule Q15M INH Last administered on 01/09 16:27; Start 01/09/17 at 16:00; Stop 01/09/17 at 16:16; Status DC Furosemide (Lasix Inj) 40 mg ONCE ONCE IV PUSH Last administered on 01/09/17 18:55; Start 01/09/17 at 18:15; Stop 01/09/17 at 18:16; Status DC Trimethoprim/ Sulfamethoxazole (Bactrim Ds 800-160 Mg) 1 tab ONCE ONCE PO Last administered on 01/09/17 20:53; Start 01/09/17 at 20:00; Stop 01/09/17 at 20:01; Status DC Dextrose (D50w (Vial) Inj) 50 ml UNSCH PRN IV PUSH HYPOGLYCEMIA-SEE COMMENTS; Start 01/09/17 at 18:30 Glucagon (Glucagon Inj) 1 mg UNSCH PRN OTHER HYPOGLYCEMIA-SEE COMMENTS; Start 01/09/17 at 18:30 Insulin Aspart (NovoLOG SUPPLEMENTAL SCALE) 1 ACHS SLIDING SCALE SQ Last administered on 01/13/17 17:12; Start 01/09/17 at 21:00 Sodium Chloride (NS Flush) 2 ml UNSCH PRN IV FLUSH FLUSH AFTER USING IV ACCESS ; Start 01/09/17 at 18:30; Stop 01/09/17 at 19:26; Status DC Sodium Chloride (NS Flush) 2 ml BID IV FLUSH ; Start 01/09/17 at 21:00; Stop at 21:00; Status DC Acetaminophen (Tylenol) 650 mg Q4H PRN PO TEMP > 100.4; Start 01/09/17 at 18:30 Ondansetron HCl (Zofran Inj) 4 mg Q6H PRN IVP NAUSEA OR VOMITING Last administered on 01/12/17 22:36; Start 01/09/17 at 18:30 Prochlorperazine (Compazine Supp) 25 mg Q12H PRN RECTAL NAUSEA OR VOMITING; Start 01/09/17 at 18:30 Acetaminophen (Tylenol) 650 mg Q6H PRN PO PAIN SCALE 1 TO 2; Start 01/09/17 at 18:30 Oxycodone/ Acetaminophen (Percocet 5-325 Mg) 1 tab Q6H PRN PO PAIN SCALE 3 TO 5; Start 01/09/17 at 18:30 Oxycodone/ Acetaminophen (Percocet 10-325 Mg) 1 tab Q6H PRN PO PAIN SCALE 6 TO 10; Start 01/09/17 at 18:30 Morphine Sulfate (Morphine Inj) 2 mg Q3H PRN IV PUSH Pain 3-5; if unable to take PO; Start 01/09/17 at 18:30 Morphine Sulfate (Morphine Inj) 4 mg Q3H PRN IV PUSH Pain 6-10;if unable to take PO; Start 01/09/17 at 18:30 Naloxone HCl (Narcan Inj) 0.4 mg UNSCH PRN IV PUSH SEE LABEL COMMENTS; Start at 18:30 Senna/Docusate Sodium (Ofe-Colace) 1 tab BID PO Last administered on 20:19; Start 01/09/17 at 21:00 Magnesium Hydroxide (Milk Of Magnesia Liq) 30 ml Q12H PRN PO MILD - MODERATE CONSTIPATION; Start 01/09/17 at 18:30 Sennosides (Senokot) 17.2 mg Q12H PRN PO MODERATE - SEVERE CONSTIPATION; Start 01/09/17 at 18:30 Bisacodyl (Dulcolax Supp) 10 mg DAILY PRN RECTAL SEVERE CONSITIPATION; Start at 18:30 Lactulose (Lactulose Liq) 30 ml DAILY PRN PO SEVERE CONSITIPATION; Start at 18:30 Furosemide (Lasix Inj) 40 mg Q12H IV Last administered on 01/10/17 21:56; Start 01/09/17 at 21:00; Stop 01/11/17 at 07:58; Status DC Vancomycin HCl 1000 mg/Sodium Chloride 250 ml @ 250 mls/hr Q12H IV ; Start at 18:30; Stop 01/09/17 at 20:22; Status DC Cefepime HCl 1000 mg/Sodium Chloride 100 ml @ 200 mls/hr Q8H IV Last administered on 01/11/17 04:27; Start 01/09/17 at 20:00; Stop 01/11/17 at 08:53 ; Status DC Pharmacy Profile Note 0 ml @ 0 mls/hr UNSCH OTHER ; Start 01/09/17 at 18:30; Stop 01/11/17 at 08:53; Status DC Albuterol/ Ipratropium (Duoneb Neb) 1 ampule Q4HR NEB INH Last administered on 01/13/17 15:42; Start 01/09/17 at 20:00; Stop 01/13/17 at 19:59; Status DC Albuterol Sulfate (Albuterol Neb) 2.5 mg Q2HR NEB PRN INH SHORTNESS OF BREATH; Start 01/09/17 at 18:45 Budesonide/ Formoterol Fumarate (Symbicort 160-4.5 Inh) 2 puff Q12HR INH Last administered on 01/13/17 20:18; Start 01/09/17 at 21:00 Methylprednisolone Sodium Succinate (SoluMEDROL INJ) 60 mg Q12H IV PUSH Last administered on 01/11/17 21:38; Start 01/09/17 at 21:00; Stop 01/12/17 at 08:13 ; Status DC Guaifenesin (Mucinex Er) 600 mg BID PO Last administered on 01/13/17 20:20; Start 01/09/17 at 21:00 Aspirin (Aspirin Chew) 81 mg DAILY PO Last administered on 01/10/17 08:31; Start 01/09/17 at 20:00; Status Future Hold Atorvastatin Calcium (Lipitor) 40 mg HS PO Last administered on 01/13/17 20:19 ; Start 01/09/17 at 21:00 Gabapentin (Neurontin) 300 mg DAILY@0600 PO Last administered on 01/13/17 06: 18; Start 01/10/17 at 06:00 Hydralazine HCl (Apresoline) 50 mg Q8HR PO Last administered on 01/13/17 20:27 ; Start 01/09/17 at 22:00 Insulin Human NPH (NovoLIN N INJ) 22 units HS SQ Last administered on 20:19; Start 01/09/17 at 21:00 Isosorbide Mononitrate (Imdur) 60 mg DAILY@07 PO Last administered on 09:44; Start 01/10/17 at 07:00 Lactobacillus Acidophilus (Lactinex) 1 tab TIDAC PO Last administered on 17:11; Start 01/10/17 at 08:00 Ticagrelor (Brilinta) 90 mg BID PO Last administered on 01/10/17 21:58; Start 01/09/17 at 21:00; Status Future Hold Tiotropium [place] (Spiriva Inh) 18 mcg DAILY INH ; Start 01/10/17 at 09:00; Stop 01/10/17 at 09:00; Status DC Pantoprazole Sodium (Protonix) 20 mg DAILY PO Last administered on 01/10/17 08 :31; Start 01/10/17 at 09:00; Stop 01/11/17 at 00:52; Status DC Gabapentin (Neurontin) 400 mg HS PO Last administered on 01/13/17 20:19; Start 01/09/17 at 21:00 Nitroglycerin (Nitrostat Sl) 0.4 mg Q5M PRN SL CHEST PAIN; Start 01/09/17 at 18 :45 Heparin Sodium/ Dextrose 250 ml @ 16.8 mls/hr TITRATE PRN IV Coagulation management Last administered on 01/10/17 16:40; Start 01/09/17 at 19:00; Status Future Hold Sodium Chloride (NS Flush) 2 ml BID IV FLUSH Last administered on 01/13/17 20: 18; Start 01/09/17 at 21:00 Sodium Chloride (NS Flush) 2 ml UNSCH PRN IV FLUSH FLUSH AFTER USING IV ACCESS ; Start 01/09/17 at 19:00 Alprazolam (Xanax) 0.25 mg Q8H PRN PO ANXIETY Last administered on 01/12/17 23 :39; Start 01/09/17 at 19:00 Vancomycin HCl 1500 mg/Sodium Chloride 515 ml @ 257.5 mls/ hr Q24H IV ; Start 01/09/17 at 22:00; Stop 01/10/17 at 10:03; Status DC Miscellaneous Information SPECIFIC LAB TO BE DRAWN:VANCO TROUGH DATE TO BE DR... ONCE ONCE .XX ; Start 01/12/17 at 21:45; Stop 01/12/17 at 21:46; Status Cancel Furosemide (Lasix Inj) 40 mg ONCE ONCE IV PUSH Last administered on 01/10/17 01:36; Start 01/10/17 at 01:30; Stop 01/10/17 at 01:31; Status DC Metoprolol Tartrate (Lopressor) 50 mg Q12HR PO Last administered on 01/13/17 20:19; Start 01/10/17 at 09:00 Vancomycin HCl 1500 mg/Sodium Chloride 515 ml @ 257.5 mls/ hr ONCE ONCE IV Last administered on 01/10/17 11:00; Start 01/10/17 at 11:00; Stop 01/10/17 at 12:59; Status DC Al Hydrox/Mg Hydrox/Simethicone (Mag-Al Plus Susp Liq) 30 ml ONCE ONCE PO Last administered on 01/10/17 22:45; Start 01/10/17 at 22:45; Stop 01/10/17 at 22:46; Status DC Pantoprazole Sodium 80 mg/ Sodium Chloride 100 ml @ 10 mls/hr Q10H IV Last administered on 01/14/17 00:39; Start 01/11/17 at 02:00 Pantoprazole Sodium 80 mg/ Sodium Chloride 35 ml @ 420 mls/hr Q5M ONCE IV Last administered on 01/11/17 01:49; Start 01/11/17 at 01:49; Stop 01/11/17 at 01:53; Status DC Propofol (Diprivan 200 Mg/20 ml Inj) 400 mg STK-MED ONCE .ROUTE ; Start at 12:10; Stop 01/11/17 at 12:11; Status DC Lactated Ringer's 1,000 ml @ 30 mls/hr Q24H ONCE IV Last administered on 12:19; Start 01/11/17 at 13:00; Stop 01/12/17 at 12:59; Status DC Miscellaneous Information ALL NURSING DEPARTME... UNSCH PRN .XX SEE LABEL COMMENTS; Start 01/11/17 at 12:56; Stop 01/12/17 at 12:55; Status DC Bumetanide (Bumex Inj) 2 mg Q8H IV PUSH Last administered on 01/14/17 03:54; Start 01/11/17 at 20:00 Chlorothiazide Sodium (Diuril Inj) 500 mg ONCE ONCE IV Last administered on 21:57; Start 01/11/17 at 20:00; Stop 01/11/17 at 21:04; Status DC Bacitracin (Bacitracin Oint Packet) 0.9 gm DAILY TOPICAL Last administered on 09:00; Start 01/12/17 at 09:00 Methylprednisolone Sodium Succinate (SoluMEDROL INJ) 40 mg Q12H IV PUSH Last administered on 01/12/17 22:41; Start 01/12/17 at 09:00; Stop 01/13/17 at 08:26 ; Status DC Cefepime HCl 1000 mg/Sodium Chloride 100 ml @ 200 mls/hr DAILY IV Last administered on 01/12/17 09:10; Start 01/12/17 at 09:00; Stop 01/13/17 at 08:26 ; Status DC Ergocalciferol (Drisdol) 50,000 units Q7D PO Last administered on 01/12/17 16: 00; Start 01/12/17 at 16:00 Pantoprazole Sodium (Protonix Inj) 40 mg Q24H IV PUSH ; Start 01/12/17 at 16:45 ; Status UNV Methylprednisolone Sodium Succinate (SoluMEDROL INJ) 20 mg Q12H IV PUSH Last administered on 01/13/17 20:18; Start 01/13/17 at 09:00 Sodium Polystyrene Sulfonate (Kayexalate Liq) 15 gm ONCE ONCE PO Last administered on 01/13/17 11:45; Start 01/13/17 at 11:00; Stop 01/13/17 at 11:01 ; Status DC Sodium Polystyrene Sulfonate (Kayexalate Liq) 15 gm ONCE ONCE PO Last administered on 01/13/17 11:45; Start 01/13/17 at 11:15; Stop 01/13/17 at 11:26 ; Status DC Chlorothiazide Sodium (Diuril Inj) 500 mg ONCE ONCE IV Last administered on 11:15; Start 01/13/17 at 11:15; Stop 01/13/17 at 11:26; Status DC A/P Assessment and Plan A/P Questionable CHF exacerbation COPD exacerbation - secondary to medication noncompliance - echocardiogram with EF 65% - started on Bumex - continue to taper down IV methylprednisolone . - continue neb treatment - Supplemental oxygen to maintain O2 sats above 92% - Continue home bronchodilators - Monitor respiratory status - IS - Strict I&Os - Salt and fluid restricted diet Chest pain with elevated troponin CAD s/p cardiac catheterization with implantation of bare metal stent 12/21/16 Atrial fibrillation -stopped heparin drip due to GI bleed - Continuous cardiac monitoring - Supplemental oxygen - hold Brilinta and aspirin due to GI bleed; will resume soon - when ok with GI and cardiology - Continue isosorbide 50 mg daily - continue statin - continue with pain control -cardiology following. upper GI bleed - s/p EGD; large gastric residual and gastritis - heparin drip on hold- will resume aspirin and Brilinta when ok with GI and cardiology - monitor H/H and transfuse as needed - continue protonix dip -gastric emptying study today. - GI following acute kidney injury superimposed on chronic renal insufficiency --renal US with no hydronephrosis - started on Bumex -SPEP to be followed. - will monitor the renal function closely -nephrology following. hyperkalemia; received a dose of Kayaxalate yesterday- awaiting BMP today. DM - Accu-Chek - Insulin sliding scale - Continue home dose of insulin HTN HLD - Continue antihypertensive medications - resumed home statin therapy - Monitor BP Neuropathy - Resumed home gabapentin LLE wound with left third toe swelling and erythema - Wound care consult appreciated. - -blood cultures negative so far -podiatry consult appreciated; no need for antibiotics; stopped Cefepime- -venous doppler of the left leg negative for DVT Incidental finding of 1 cm irregular nodule right upper lobe - CT chest 12/23/16 - Recommend follow-up CT at approximately 3, 9 and 24 months and or contrast enhanced CT, PET and/or biopsy Chronic indwelling [place] with asymptomatic bacteriuria ; afebrile- likely contamination- will dc antibiotics. will consider palliative care evaluation. GI prophylaxis - PPI DVT prophylaxis -heparin discontinued due to GI bleed. Bob Phillips MD Jan 14, 2017 08:01
[2017-01-14] MEDS ORDERED: DEXTROSE 50% IN WATER 50 ML SYRINGE ONE (08:07)
[2017-01-14] MEDS: BACITRACIN OINT 0.9 GM PKT TOPICAL SCH (09:00)
[2017-01-14] MEDS: POLYETHYLENE GLYCOL 17 GM PKG PO SCH (09:00)
--- NOTE | 2017-01-14 09:00 | HHI.GIFU ---
Subjective Remarks Resting in bed. No n/v. No hematemesis. C/O no bm in 3 days despite taking laxatives. Going for GES today. (Fabby Lo) Objective Vitals I&O Vital Signs Date Time Temp Pulse Resp B/P (MAP) Pulse Ox O2 Delivery O2 Flow Rate FiO2 01/14/17 08:19 97.1 67 20 120/72 (88) 98 01/14/17 06:00 65 01/14/17 05:00 60 01/14/17 04:00 60 01/14/17 03:47 97.0 68 22 119/73 (88) 97 01/14/17 03:00 66 01/14/17 02:00 63 01/14/17 01:00 70 01/14/17 00:00 114 01/13/17 23:59 97.4 65 18 125/86 (99) 100 01/13/17 23:00 69 01/13/17 22:00 84 01/13/17 21:00 68 01/13/17 20:00 68 01/13/17 19:00 97.8 73 18 115/68 (84) 96 01/13/17 19:00 63 01/13/17 18:00 82 01/13/17 17:00 78 01/13/17 16:00 68 01/13/17 15:00 66 01/13/17 15:00 62 01/13/17 15:00 97.3 83 21 118/80 (93) 96 01/13/17 14:00 74 01/13/17 13:00 76 01/13/17 12:00 66 01/13/17 12:00 66 01/13/17 11:00 96.4 90 20 119/78 (92) 99 01/13/17 11:00 67 01/13/17 10:00 66 01/13/17 09:06 98 Nasal Cannula 2.00 01/13/17 09:00 66 I/O 01/13/17 01/13/17 01/13/17 01/14/17 01/14/17 01/14/17 07:00 15:00 23:00 07:00 15:00 23:00 Intake Total 240 ml 800 ml 480 ml Output Total 2150 ml 2200 ml 3025 ml Balance -1910 ml -1400 ml -2545 ml Intake Oral 240 ml 800 ml 480 ml Output Urine Total 2150 ml 2200 ml 3025 ml # Bowel Movements 0 Laboratory Laboratory Tests Test 01/13/17 18:01 01/14/17 05:14 Potassium Level 4.2 4.2 Blood Urea Nitrogen 93 Creatinine 3.77 Random Glucose 33 Calcium Level 8.3 Sodium Level 139 Chloride Level 97 Carbon Dioxide Level 31.3 Anion Gap 11 Estimat Glomerular Filtration Rate 15 Date/Time Source Procedure Growth Status 01/09/17 20:55 Blood Peripheral Aerobic Blood Culture - Preliminary NO GROWTH IN 4 DAYS Resulted 01/09/17 20:55 Blood Peripheral Anaerobic Blood Culture - Preliminary NO GROWTH IN 4 DAYS Resulted 01/09/17 16:15 Urine Random Urine Urine Culture - Final Proteus Mirabilis Staphylococcus Aureus Complete Imaging Last Impressions Abdomen X-Ray 01/12/17 0000 Signed Impressions: Service Date/Time: Thursday, January 12, 2017 10:07 - CONCLUSION: 1. No acute abdominal abnormality is identified. 2. Severe atherosclerotic disease. Storm Allen MD Renal Ultrasound 01/11/17 0000 Signed Impressions: Service Date/Time: Wednesday, January 11, 2017 23:22 - CONCLUSION: No evidence of hydronephrosis. 2.8 cm left renal cyst. Clemente Matute MD Chest X-Ray 01/11/17 0000 Signed Impressions: Service Date/Time: Wednesday, January 11, 2017 08:46 - CONCLUSION: Mild improvement vascularity CHF Mike Scott MD Lower Extremity Ultrasound 01/10/17 0000 Signed Impressions: Service Date/Time: December 08:44 - CONCLUSION: 1. Negative left lower extremity DVT study. A Clay's cyst measuring 2.5 x 4.7 x 1 cm. Carlitos Corona MD Toe X-Ray 01/09/17 0000 Signed Impressions: Service Date/Time: Monday, January 09, 2017 17:40 - CONCLUSION: Soft tissue swelling third digit without bony destruction. Wilfredo Maddox MD FACR Physical Exam HEENT: Normocephalic. CHEST: CTA CARDIAC: Irregular rhythm. ABDOMEN: Soft, obese, mildly distended. EXTREMITIES: No clubbing, cyanosis, + BLE pedal edema. SKIN: Normal; no rash; no jaundice. 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 Recent STEMI, s/p Bare metal stent (12/21). Discharged home on Brilinta, ASA, Prednisone. Reports a lot of "stomach issues" since he went home and has been taking Maalox. Started vomiting dark red blood (large amount)- multiple episodes for 2-3 hours. Was having epigastric pain radiating up his esophagus, and a dull ache LUQ--- > epigastric area. Denies any hx of PUD. Brilinta and ASA on hold. EGD 01/11/17--Large gastric residuals and gastritis. There is a small concern for possible small bowel obstruction although the residual could also be related to gastroparesis found large gastric residues. HH stable yesterday. Will d/c protonix gtt and start 40mg po BID - Anemia, acute blood loss. HH stable - Abdominal pain, n/v, reflux. Small concern for possible sbo vs. gastroparesis. KUB (01/12/17)---> No acute abdominal abnormality is identified, severe atherosclerotic disease. GES today. Has not had bowel movement in 3 days. Clinically, mildly distended, no n/v. Will add Miralax. - CHF, CAD with recent STEMI, Atrial fibrillation. S/P cardiac catheterization ( 12/21/16)--acute thrombotic occlusion of the mid and distal left anterior descending coronary artery, successful rheolytic thrombectomy of the left anterior descending coronary artery, successful percutaneous intervention with bare metal stents to the mid and distal left anterior descending coronary artery. He was discharged on Aspirin and Brilinta. Cardiology following, feels that his elevated troponin are secondary to his recent SD 3 weeks ago and some demand mediated response to his congestive heart failure. - COPD Exacerbation, Bronchitis. Steroids, Abx, Nebs per attending. - Acute on CKD, per renal. Creat 3.77 - DM, HTN, Hyperlipidemia, LLE wound per attending. PLAN: - NPO for GES - GES today - D/C protonix gtt - Protonix 40mg po BID - Miralax 17gram po daily - Supportive care - Okay to resume anticoagulation from GI standpoint. - Further recommendations to follow based on results of above - Patient seen and examined by Dr. Purcell and myself and this note is written on his behalf (Fabby Lo) Plan Patient was seen and examined, agree with above Notes, still constipated, we will continue laxative, await for gastric emptying study results, okay to start anticoagulation (Ra Purcell MD) Fabby Lo Jan 14, 2017 09:00 Ra Purcell MD Jan 14, 2017 16:26
[2017-01-14 10:09] LABS: ALBUMIN SPE 3.27 GM/DL (3.50-5.00); ALPHA 1 GLOBULIN 0.25 GM/DL (0.11-0.29); ALPHA 2 GLOBULIN 0.96 GM/DL (0.22-1.00); BETA GLOBULINS (SPE) 0.7 GM/DL (0.53-1.03)
[2017-01-14] MEDS: methylPREDNISolone SOD SUCC 40 MG/1 ML VIAL IV PUSH SCH ×2 (10:22→21:33)
[2017-01-14] MEDS: METOPROLOL TARTRATE 50 MG TAB PO SCH ×2 (10:23→21:34)
[2017-01-14] MEDS: SODIUM CHLORIDE 0.9% FLUSH 10 ML FLUSH IV FLUSH SCH ×2 (10:23→21:35)
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
[2017-01-14 11:39] LABS: ANA SCREEN NEG (NEG)
[2017-01-14] MEDS ORDERED: METOCLOPRAMIDE HCL 10 MG/2 ML VIAL ONE (13:01)
--- NOTE | 2017-01-14 14:57 | RADRPT ---
EXAM DATE/TIME: 01/14/2017 11:18 [facility] COMPARISON: No previous studies available for comparison. INDICATIONS : Abdominal pain. DOSE: 1.0 mCi Tc99m Sulfur Colloid Labeled Whole egg PO MEDICATONS: 1.) 5 mg Reglan IV at 90 minutes IMAGIN hrs MEDICAL HISTORY : Myocardial infarction. Chronic obstructive pulmonary disease. Carcinoma, prostate. SURGICAL HISTORY : Coronary artery stent. ENCOUNTER: Initial ACUITY: 1 day PAIN SCALE: 2/10 LOCATION: Abdomen. TECHNIQUE: Following the oral ingestion of radiotracer-labeled meal, dynamic sequential images in the GIANCARLO projec tion were acquired with simultaneous computer acquisition. The data set was decay-corrected. FINDINGS: LAG PHASE: There is zero minutes before onset of gastric emptying. EMPTYING: Gastric emptying kinetics are linear. The decay-corrected, back-extrapolated half-time of emptying i s greater than 120 minutes. (Normal for this lab is 45- 90 minutes.) INTERVENTION: There is no response to Reglan CONCLUSION: 1. Markedly prolonged gastric emptying with no response to Reglan Kenji Calderon MD on January 14, 2017 at 14:55 Board Certified Radiologist. This report was verified electronically.
[2017-01-14] MEDS: PANTOPRAZOLE SOD 40 MG DELAYED RELEASE TAB PO SCH ×2 (15:40→21:34)
[2017-01-14] MEDS: guaiFENesin E.R. 600 MG TAB PO SCH ×2 (15:40→21:34)
[2017-01-14] MEDS: LACTOBACILLUS ACIDOPHILUS TAB PO SCH ×2 (15:40→17:36)
[2017-01-14] MEDS: DOCUSATE SODIUM 50 MG/SENNA 8.6 MG TAB PO SCH ×2 (15:40→21:00)
[2017-01-14] MEDS: BUDESONIDE-FORMOTEROL 160/4.5 MCG INHALER INH SCH ×2 (15:42→21:00)
[2017-01-14] MEDS: ATORVASTATIN 40 MG TAB PO SCH (21:34)
[2017-01-14] MEDS: GABAPENTIN 400 MG CAP PO SCH (21:35)
[2017-01-15] VITALS (30 sets, daily range): BP systolic 106–133; BP diastolic 62–78; PULSE 60–83; RESP 17–20; TEMP 97.3–98.7; O2SAT 94–98
[2017-01-15] MEDS: BUMETANIDE INJ 1 MG/4 ML VIAL IV PUSH SCH ×2 (04:05→12:52)
[2017-01-15] MEDS: GABAPENTIN 300 MG CAP PO SCH (05:49)
[2017-01-15] MEDS: ISOSORBIDE MONONITRATE 60 MG TAB PO SCH (05:49)
[2017-01-15] MEDS: hydrALAZINE HCL 50 MG TAB PO SCH ×3 (05:49→21:46)
[2017-01-15 06:25] LABS: HEMATOCRIT 32.2 % (39.0-51.0); MEAN CELL VOLUME 87.3 FL (80.0-100.0); MEAN CORPUSCULAR HGB CONC 32.1 % (32.0-36.0); PLATELET COUNT 143 TH/MM3 (150-450); RED BLOOD COUNT 3.69 MIL/MM3 (4.50-5.90); RED CELL DISTRIBUTION WIDTH 16.3 % (11.6-17.2); REVIEW FLAG FINAL; WHITE BLOOD COUNT 14.5 TH/MM3 (4.0-11.0)
[2017-01-15 07:02] LABS: BICARBONATE 30.8 MEQ/L (21.0-32.0); POTASSIUM 4.4 MEQ/L (3.5-5.1)
--- NOTE | 2017-01-15 09:01 | HHI.PR ---
Subjective Remarks looks somewhat better today. in no distress. had a loose, reddish BM last night. no chest pain today. d/w the RN and no other acute issues over night. Objective Vitals Vital Signs Date Time Temp Pulse Resp B/P (MAP) Pulse Ox O2 Delivery O2 Flow Rate FiO2 01/15/17 07:33 97.3 66 20 133/78 (96) 98 01/15/17 07:00 70 01/15/17 06:00 74 01/15/17 05:00 74 01/15/17 04:47 98 Nasal Cannula 2.00 01/15/17 04:00 68 01/15/17 03:00 72 01/15/17 02:00 72 01/15/17 01:00 74 01/15/17 00:00 74 01/14/17 23:22 97.3 68 20 124/71 (88) 98 01/14/17 23:00 72 01/14/17 22:00 72 01/14/17 21:00 74 01/14/17 20:00 97.3 72 20 143/90 (107) 98 01/14/17 20:00 74 01/14/17 19:00 74 01/14/17 18:00 74 01/14/17 17:00 72 01/14/17 16:00 66 01/14/17 15:03 97.4 67 20 118/69 (85) 98 01/14/17 15:00 75 01/14/17 10:00 62 01/14/17 09:00 62 I/O 01/14/17 01/14/17 01/14/17 01/15/17 01/15/17 01/15/17 07:00 15:00 23:00 07:00 15:00 23:00 Intake Total 480 ml 480 ml 240 ml Output Total 3025 ml 900 ml 1700 ml Balance -2545 ml -420 ml -1460 ml Intake Oral 480 ml 480 ml 240 ml Output Urine Total 3025 ml 900 ml 1700 ml Result Diagram: 01/15/17 0448 01/15/17 0448 Imaging Last Impressions Gastric Emptying Nuclear Medicine 01/14/17 0000 Signed Impressions: Service Date/Time: Saturday, January 14, 2017 11:18 - CONCLUSION: 1. Markedly prolonged gastric emptying with no response to Reglan Kenji Calderon MD Abdomen X-Ray 01/12/17 0000 Signed Impressions: Service Date/Time: Thursday, January 12, 2017 10:07 - CONCLUSION: 1. No acute abdominal abnormality is identified. 2. Severe atherosclerotic disease. Storm Allen MD Renal Ultrasound 01/11/17 0000 Signed Impressions: Service Date/Time: Wednesday, January 11, 2017 23:22 - CONCLUSION: No evidence of hydronephrosis. 2.8 cm left renal cyst. Clemente Matute MD Chest X-Ray 01/11/17 0000 Signed Impressions: Service Date/Time: Wednesday, January 11, 2017 08:46 - CONCLUSION: Mild improvement vascularity CHF Mike Scott MD Lower Extremity Ultrasound 01/10/17 0000 Signed Impressions: Service Date/Time: December 08:44 - CONCLUSION: 1. Negative left lower extremity DVT study. A Clay's cyst measuring 2.5 x 4.7 x 1 cm. Carlitos Corona MD Toe X-Ray 01/09/17 0000 Signed Impressions: Service Date/Time: Monday, January 09, 2017 17:40 - CONCLUSION: Soft tissue swelling third digit without bony destruction. Wilfredo Maddox MD FACR Objective Remarks GENERAL: in no acute distress and looks somewhat more comfortable today CARDIOVASCULAR; tachycardic with irregular rhythm without murmurs, gallops, or rubs. RESPIRATORY: Clear to auscultation. Breath sounds equal bilaterally. No wheezes , rales, or rhonchi. GASTROINTESTINAL: Abdomen soft, mild generalized tenderness and distended. Normal, active bowel sounds MUSCULOSKELETAL: erythema and swelling of the left third toe.bilateral pedal edema. NEURO: Alert & Oriented x4 to person, place, time, situation. Moves all ext x4 skin; some erythema over the left leg along with superficial ulcer on the left weeks Procedures EGD Medications and IVs Current Medications Methylprednisolone Sodium Succinate (SoluMEDROL INJ) 125 mg ONCE ONCE IV PUSH Last administered on 01/09/17 17:08; Start 01/09/17 at 16:00; Stop 01/09/17 at 16:01; Status DC Albuterol/ Ipratropium (Duoneb Neb) 1 ampule Q15M INH Last administered on 01/09 16:27; Start 01/09/17 at 16:00; Stop 01/09/17 at 16:16; Status DC Furosemide (Lasix Inj) 40 mg ONCE ONCE IV PUSH Last administered on 01/09/17 18:55; Start 01/09/17 at 18:15; Stop 01/09/17 at 18:16; Status DC Trimethoprim/ Sulfamethoxazole (Bactrim Ds 800-160 Mg) 1 tab ONCE ONCE PO Last administered on 01/09/17 20:53; Start 01/09/17 at 20:00; Stop 01/09/17 at 20:01; Status DC Dextrose (D50w (Vial) Inj) 50 ml UNSCH PRN IV PUSH HYPOGLYCEMIA-SEE COMMENTS; Start 01/09/17 at 18:30 Glucagon (Glucagon Inj) 1 mg UNSCH PRN OTHER HYPOGLYCEMIA-SEE COMMENTS; Start 01/09/17 at 18:30 Insulin Aspart (NovoLOG SUPPLEMENTAL SCALE) 1 ACHS SLIDING SCALE SQ Last administered on 01/14/17 21:00; Start 01/09/17 at 21:00 Sodium Chloride (NS Flush) 2 ml UNSCH PRN IV FLUSH FLUSH AFTER USING IV ACCESS ; Start 01/09/17 at 18:30; Stop 01/09/17 at 19:26; Status DC Sodium Chloride (NS Flush) 2 ml BID IV FLUSH ; Start 01/09/17 at 21:00; Stop at 21:00; Status DC Acetaminophen (Tylenol) 650 mg Q4H PRN PO TEMP > 100.4; Start 01/09/17 at 18:30 Ondansetron HCl (Zofran Inj) 4 mg Q6H PRN IVP NAUSEA OR VOMITING Last administered on 01/12/17 22:36; Start 01/09/17 at 18:30 Prochlorperazine (Compazine Supp) 25 mg Q12H PRN RECTAL NAUSEA OR VOMITING; Start 01/09/17 at 18:30 Acetaminophen (Tylenol) 650 mg Q6H PRN PO PAIN SCALE 1 TO 2; Start 01/09/17 at 18:30 Oxycodone/ Acetaminophen (Percocet 5-325 Mg) 1 tab Q6H PRN PO PAIN SCALE 3 TO 5; Start 01/09/17 at 18:30 Oxycodone/ Acetaminophen (Percocet 10-325 Mg) 1 tab Q6H PRN PO PAIN SCALE 6 TO 10; Start 01/09/17 at 18:30 Morphine Sulfate (Morphine Inj) 2 mg Q3H PRN IV PUSH Pain 3-5; if unable to take PO; Start 01/09/17 at 18:30 Morphine Sulfate (Morphine Inj) 4 mg Q3H PRN IV PUSH Pain 6-10;if unable to take PO; Start 01/09/17 at 18:30 Naloxone HCl (Narcan Inj) 0.4 mg UNSCH PRN IV PUSH SEE LABEL COMMENTS; Start at 18:30 Senna/Docusate Sodium (Ofe-Colace) 1 tab BID PO Last administered on 20:19; Start 01/09/17 at 21:00 Magnesium Hydroxide (Milk Of Magnesia Liq) 30 ml Q12H PRN PO MILD - MODERATE CONSTIPATION; Start 01/09/17 at 18:30 Sennosides (Senokot) 17.2 mg Q12H PRN PO MODERATE - SEVERE CONSTIPATION; Start 01/09/17 at 18:30 Bisacodyl (Dulcolax Supp) 10 mg DAILY PRN RECTAL SEVERE CONSITIPATION; Start at 18:30 Lactulose (Lactulose Liq) 30 ml DAILY PRN PO SEVERE CONSITIPATION; Start at 18:30 Furosemide (Lasix Inj) 40 mg Q12H IV Last administered on 01/10/17 21:56; Start 01/09/17 at 21:00; Stop 01/11/17 at 07:58; Status DC Vancomycin HCl 1000 mg/Sodium Chloride 250 ml @ 250 mls/hr Q12H IV ; Start at 18:30; Stop 01/09/17 at 20:22; Status DC Cefepime HCl 1000 mg/Sodium Chloride 100 ml @ 200 mls/hr Q8H IV Last administered on 01/11/17 04:27; Start 01/09/17 at 20:00; Stop 01/11/17 at 08:53 ; Status DC Pharmacy Profile Note 0 ml @ 0 mls/hr UNSCH OTHER ; Start 01/09/17 at 18:30; Stop 01/11/17 at 08:53; Status DC Albuterol/ Ipratropium (Duoneb Neb) 1 ampule Q4HR NEB INH Last administered on 01/13/17 15:42; Start 01/09/17 at 20:00; Stop 01/13/17 at 19:59; Status DC Albuterol Sulfate (Albuterol Neb) 2.5 mg Q2HR NEB PRN INH SHORTNESS OF BREATH; Start 01/09/17 at 18:45 Budesonide/ Formoterol Fumarate (Symbicort 160-4.5 Inh) 2 puff Q12HR INH Last administered on 01/14/17 21:00; Start 01/09/17 at 21:00 Methylprednisolone Sodium Succinate (SoluMEDROL INJ) 60 mg Q12H IV PUSH Last administered on 01/11/17 21:38; Start 01/09/17 at 21:00; Stop 01/12/17 at 08:13 ; Status DC Guaifenesin (Mucinex Er) 600 mg BID PO Last administered on 01/14/17 21:34; Start 01/09/17 at 21:00 Aspirin (Aspirin Chew) 81 mg DAILY PO Last administered on 01/10/17 08:31; Start 01/09/17 at 20:00; Status Future Hold Atorvastatin Calcium (Lipitor) 40 mg HS PO Last administered on 01/14/17 21:34 ; Start 01/09/17 at 21:00 Gabapentin (Neurontin) 300 mg DAILY@0600 PO Last administered on 01/15/17 05: 49; Start 01/10/17 at 06:00 Hydralazine HCl (Apresoline) 50 mg Q8HR PO Last administered on 01/15/17 05:49 ; Start 01/09/17 at 22:00 Insulin Human NPH (NovoLIN N INJ) 22 units HS SQ Last administered on 20:19; Start 01/09/17 at 21:00; Status Future Hold Isosorbide Mononitrate (Imdur) 60 mg DAILY@07 PO Last administered on 05:49; Start 01/10/17 at 07:00 Lactobacillus Acidophilus (Lactinex) 1 tab TIDAC PO Last administered on 17:36; Start 01/10/17 at 08:00 Ticagrelor (Brilinta) 90 mg BID PO Last administered on 01/10/17 21:58; Start 01/09/17 at 21:00; Status Future Hold Tiotropium [place] (Spiriva Inh) 18 mcg DAILY INH ; Start 01/10/17 at 09:00; Stop 01/10/17 at 09:00; Status DC Pantoprazole Sodium (Protonix) 20 mg DAILY PO Last administered on 01/10/17 08 :31; Start 01/10/17 at 09:00; Stop 01/11/17 at 00:52; Status DC Gabapentin (Neurontin) 400 mg HS PO Last administered on 01/14/17 21:35; Start 01/09/17 at 21:00 Nitroglycerin (Nitrostat Sl) 0.4 mg Q5M PRN SL CHEST PAIN; Start 01/09/17 at 18 :45 Heparin Sodium/ Dextrose 250 ml @ 16.8 mls/hr TITRATE PRN IV Coagulation management Last administered on 01/10/17 16:40; Start 01/09/17 at 19:00; Status Future Hold Sodium Chloride (NS Flush) 2 ml BID IV FLUSH Last administered on 01/14/17 21: 35; Start 01/09/17 at 21:00 Sodium Chloride (NS Flush) 2 ml UNSCH PRN IV FLUSH FLUSH AFTER USING IV ACCESS ; Start 01/09/17 at 19:00 Alprazolam (Xanax) 0.25 mg Q8H PRN PO ANXIETY Last administered on 01/12/17 23 :39; Start 01/09/17 at 19:00 Vancomycin HCl 1500 mg/Sodium Chloride 515 ml @ 257.5 mls/ hr Q24H IV ; Start 01/09/17 at 22:00; Stop 01/10/17 at 10:03; Status DC Miscellaneous Information SPECIFIC LAB TO BE DRAWN:VANCO TROUGH DATE TO BE DR... ONCE ONCE .XX ; Start 01/12/17 at 21:45; Stop 01/12/17 at 21:46; Status Cancel Furosemide (Lasix Inj) 40 mg ONCE ONCE IV PUSH Last administered on 01/10/17 01:36; Start 01/10/17 at 01:30; Stop 01/10/17 at 01:31; Status DC Metoprolol Tartrate (Lopressor) 50 mg Q12HR PO Last administered on 01/14/17 21:34; Start 01/10/17 at 09:00 Vancomycin HCl 1500 mg/Sodium Chloride 515 ml @ 257.5 mls/ hr ONCE ONCE IV Last administered on 01/10/17 11:00; Start 01/10/17 at 11:00; Stop 01/10/17 at 12:59; Status DC Al Hydrox/Mg Hydrox/Simethicone (Mag-Al Plus Susp Liq) 30 ml ONCE ONCE PO Last administered on 01/10/17 22:45; Start 01/10/17 at 22:45; Stop 01/10/17 at 22:46; Status DC Pantoprazole Sodium 80 mg/ Sodium Chloride 100 ml @ 10 mls/hr Q10H IV Last administered on 01/14/17 00:39; Start 01/11/17 at 02:00; Stop 01/14/17 at 09:02 ; Status DC Pantoprazole Sodium 80 mg/ Sodium Chloride 35 ml @ 420 mls/hr Q5M ONCE IV Last administered on 01/11/17 01:49; Start 01/11/17 at 01:49; Stop 01/11/17 at 01:53; Status DC Propofol (Diprivan 200 Mg/20 ml Inj) 400 mg STK-MED ONCE .ROUTE ; Start at 12:10; Stop 01/11/17 at 12:11; Status DC Lactated Ringer's 1,000 ml @ 30 mls/hr Q24H ONCE IV Last administered on 12:19; Start 01/11/17 at 13:00; Stop 01/12/17 at 12:59; Status DC Miscellaneous Information ALL NURSING DEPARTME... UNSCH PRN .XX SEE LABEL COMMENTS; Start 01/11/17 at 12:56; Stop 01/12/17 at 12:55; Status DC Bumetanide (Bumex Inj) 2 mg Q8H IV PUSH Last administered on 01/15/17 04:05; Start 01/11/17 at 20:00 Chlorothiazide Sodium (Diuril Inj) 500 mg ONCE ONCE IV Last administered on 21:57; Start 01/11/17 at 20:00; Stop 01/11/17 at 21:04; Status DC Bacitracin (Bacitracin Oint Packet) 0.9 gm DAILY TOPICAL Last administered on 09:00; Start 01/12/17 at 09:00 Methylprednisolone Sodium Succinate (SoluMEDROL INJ) 40 mg Q12H IV PUSH Last administered on 01/12/17 22:41; Start 01/12/17 at 09:00; Stop 01/13/17 at 08:26 ; Status DC Cefepime HCl 1000 mg/Sodium Chloride 100 ml @ 200 mls/hr DAILY IV Last administered on 01/12/17 09:10; Start 01/12/17 at 09:00; Stop 01/13/17 at 08:26 ; Status DC Ergocalciferol (Drisdol) 50,000 units Q7D PO Last administered on 01/12/17 16: 00; Start 01/12/17 at 16:00 Pantoprazole Sodium (Protonix Inj) 40 mg Q24H IV PUSH ; Start 01/12/17 at 16:45 ; Status UNV Methylprednisolone Sodium Succinate (SoluMEDROL INJ) 20 mg Q12H IV PUSH Last administered on 01/14/17 21:33; Start 01/13/17 at 09:00 Sodium Polystyrene Sulfonate (Kayexalate Liq) 15 gm ONCE ONCE PO Last administered on 01/13/17 11:45; Start 01/13/17 at 11:00; Stop 01/13/17 at 11:01 ; Status DC Sodium Polystyrene Sulfonate (Kayexalate Liq) 15 gm ONCE ONCE PO Last administered on 01/13/17 11:45; Start 01/13/17 at 11:15; Stop 01/13/17 at 11:26 ; Status DC Chlorothiazide Sodium (Diuril Inj) 500 mg ONCE ONCE IV Last administered on 11:15; Start 01/13/17 at 11:15; Stop 01/13/17 at 11:26; Status DC Dextrose (D50w (Syr) Inj) 50 ml STK-MED ONCE .ROUTE Last administered on 08:17; Start 01/14/17 at 08:07; Stop 01/14/17 at 08:08; Status DC Pantoprazole Sodium (Protonix) 40 mg Q12HR PO Last administered on 01/14/17 21 :34; Start 01/14/17 at 09:00 Polyethylene Glycol (Miralax) 17 gm DAILY PO ; Start 01/14/17 at 09:00 Metoclopramide HCl (Reglan Inj) 10 mg STK-MED ONCE .ROUTE Last administered on 01/14/17t 13:01; Start 01/14/17 at 13:01; Stop 01/14/17 at 13:02; Status DC Lidocaine HCl (Xylocaine-Mpf 1% Inj) 5 ml STK-MED ONCE OTHER ; Start 01/11/17 at 12:00; Stop 01/14/17 at 16:06; Status DC Succinylcholine Chloride (Quelicin Inj) 100 mg STK-MED ONCE IV PUSH ; Start at 12:00; Stop 01/14/17 at 16:06; Status DC Ondansetron HCl (Zofran Inj) 4 mg STK-MED ONCE IV PUSH ; Start 01/11/17 at 12:00 ; Stop 01/14/17 at 16:06; Status DC Fentanyl Citrate (fentaNYL INJ) 100 mcg STK-MED ONCE IV ; Start 01/11/17 at 12: 00; Stop 01/14/17 at 16:06; Status DC A/P Assessment and Plan A/P Questionable CHF exacerbation COPD exacerbation - secondary to medication noncompliance - echocardiogram with EF 65% - started on Bumex - continue to taper down IV methylprednisolone . - continue neb treatment - Supplemental oxygen to maintain O2 sats above 92% - Continue home bronchodilators - Monitor respiratory status - IS - Strict I&Os - Salt and fluid restricted diet Chest pain with elevated troponin CAD s/p cardiac catheterization with implantation of bare metal stent 12/21/16 Atrial fibrillation -stopped heparin drip due to GI bleed - Continuous cardiac monitoring - Supplemental oxygen - hold Brilinta and aspirin due to GI bleed; will resume soon - when ok with GI and cardiology - Continue isosorbide 50 mg daily - continue statin - continue with pain control -cardiology following. upper GI bleed - s/p EGD; large gastric residual and gastritis - heparin drip on hold- will resume aspirin and Brilinta when ok with GI and cardiology - monitor H/H and transfuse as needed - continue protonix dip -gastric emptying study with prolonged emptying of the stomach - GI following acute kidney injury superimposed on chronic renal insufficiency --renal US with no hydronephrosis - started on Bumex -SPEP to be followed. - will monitor the renal function closely -nephrology following. hyperkalemia; resolved. DM with hypoglycemic episode - Accu-Chek - Insulin sliding scale - will resume NPH soon if no further hypoglycemic episodes recurs. HTN HLD - Continue antihypertensive medications - resumed home statin therapy - Monitor BP Neuropathy - Resumed home gabapentin LLE wound with left third toe swelling and erythema - Wound care consult appreciated. - -blood cultures negative so far -podiatry consult appreciated; no need for antibiotics; stopped Cefepime- -venous doppler of the left leg negative for DVT Incidental finding of 1 cm irregular nodule right upper lobe - CT chest 12/23/16 - Recommend follow-up CT at approximately 3, 9 and 24 months and or contrast enhanced CT, PET and/or biopsy Chronic indwelling [place] with asymptomatic bacteriuria ; afebrile- likely contamination- will dc antibiotics. GI prophylaxis - PPI DVT prophylaxis -heparin discontinued due to GI bleed. Bob Phillips MD Jan 15, 2017 09:01
[2017-01-15] MEDS: INSULIN ASPART SUPPLEMENTAL SCALE SQ SCH ×4 (09:03→21:00)
[2017-01-15] MEDS: methylPREDNISolone SOD SUCC 40 MG/1 ML VIAL IV PUSH SCH ×2 (09:07→21:45)
[2017-01-15] MEDS: BUDESONIDE-FORMOTEROL 160/4.5 MCG INHALER INH SCH ×2 (09:07→21:00)
[2017-01-15] MEDS: LACTOBACILLUS ACIDOPHILUS TAB PO SCH ×3 (09:07→18:43)
[2017-01-15] MEDS: SODIUM CHLORIDE 0.9% FLUSH 10 ML FLUSH IV FLUSH SCH ×2 (09:08→21:46)
[2017-01-15] MEDS: PANTOPRAZOLE SOD 40 MG DELAYED RELEASE TAB PO SCH ×2 (09:08→21:45)
[2017-01-15] MEDS: POLYETHYLENE GLYCOL 17 GM PKG PO SCH (09:08)
[2017-01-15] MEDS: guaiFENesin E.R. 600 MG TAB PO SCH ×2 (09:08→21:44)
[2017-01-15] MEDS: DOCUSATE SODIUM 50 MG/SENNA 8.6 MG TAB PO SCH ×2 (09:09→21:46)
[2017-01-15] MEDS: METOPROLOL TARTRATE 50 MG TAB PO SCH ×2 (09:09→21:45)
[2017-01-15] MEDS: BACITRACIN OINT 0.9 GM PKT TOPICAL SCH (09:09)
--- NOTE | 2017-01-15 13:32 | HHI.GIFU ---
Subjective Remarks Resting in bed. No GI bleeding. No n/v. tolerating diet- eating pot roast for lunch without difficulty. States he had one bowel movement earlier this morning. (Fabby Lo) Objective Vitals I&O Vital Signs Date Time Temp Pulse Resp B/P (MAP) Pulse Ox O2 Delivery O2 Flow Rate FiO2 01/15/17 13:00 66 01/15/17 12:00 70 01/15/17 11:34 63 01/15/17 11:32 98.2 83 18 112/62 (79) 97 01/15/17 10:13 65 01/15/17 09:00 72 01/15/17 08:00 74 01/15/17 07:33 97.3 66 20 133/78 (96) 98 01/15/17 07:05 64 01/15/17 07:00 70 01/15/17 06:00 74 01/15/17 05:00 74 01/15/17 04:47 98 Nasal Cannula 2.00 01/15/17 04:00 68 01/15/17 03:00 72 01/15/17 02:00 72 01/15/17 01:00 74 01/15/17 00:00 74 01/14/17 23:22 97.3 68 20 124/71 (88) 98 01/14/17 23:00 72 01/14/17 22:00 72 01/14/17 21:00 74 01/14/17 20:00 97.3 72 20 143/90 (107) 98 01/14/17 20:00 74 01/14/17 19:00 74 01/14/17 18:00 74 01/14/17 17:00 72 01/14/17 16:00 66 01/14/17 15:03 97.4 67 20 118/69 (85) 98 01/14/17 15:00 75 I/O 01/14/17 01/14/17 01/14/17 01/15/17 01/15/17 01/15/17 07:00 15:00 23:00 07:00 15:00 23:00 Intake Total 480 ml 480 ml 240 ml Output Total 3025 ml 900 ml 1700 ml Balance -2545 ml -420 ml -1460 ml Intake Oral 480 ml 480 ml 240 ml Output Urine Total 3025 ml 900 ml 1700 ml Laboratory Laboratory Tests Test 01/15/17 04:48 White Blood Count 14.5 Red Blood Count 3.69 Hemoglobin 10.3 Hematocrit 32.2 Mean Corpuscular Volume 87.3 Mean Corpuscular Hemoglobin 28.0 Mean Corpuscular Hemoglobin Concent 32.1 Red Cell Distribution Width 16.3 Platelet Count 143 Mean Platelet Volume 9.0 Blood Urea Nitrogen 103 Creatinine 3.76 Random Glucose 190 Albumin 2.6 Calcium Level 7.9 Phosphorus Level 7.4 Sodium Level 138 Potassium Level 4.4 Chloride Level 95 Carbon Dioxide Level 30.8 Anion Gap 12 Estimat Glomerular Filtration Rate 15 Date/Time Source Procedure Growth Status 01/09/17 20:55 Blood Peripheral Aerobic Blood Culture - Final NO GROWTH IN 5 DAYS Complete 01/09/17 20:55 Blood Peripheral Anaerobic Blood Culture - Final NO GROWTH IN 5 DAYS Complete 01/09/17 16:15 Urine Random Urine Urine Culture - Final Proteus Mirabilis Staphylococcus Aureus Complete Imaging Last Impressions Gastric Emptying Nuclear Medicine 01/14/17 0000 Signed Impressions: Service Date/Time: Saturday, January 14, 2017 11:18 - CONCLUSION: 1. Markedly prolonged gastric emptying with no response to Reglan Kenji Calderon MD Abdomen X-Ray 01/12/17 0000 Signed Impressions: Service Date/Time: Thursday, January 12, 2017 10:07 - CONCLUSION: 1. No acute abdominal abnormality is identified. 2. Severe atherosclerotic disease. Storm Allen MD Renal Ultrasound 01/11/17 0000 Signed Impressions: Service Date/Time: Wednesday, January 11, 2017 23:22 - CONCLUSION: No evidence of hydronephrosis. 2.8 cm left renal cyst. Clemente Matute MD Chest X-Ray 01/11/17 0000 Signed Impressions: Service Date/Time: Wednesday, January 11, 2017 08:46 - CONCLUSION: Mild improvement vascularity CHF Mike Scott MD Lower Extremity Ultrasound 01/10/17 0000 Signed Impressions: Service Date/Time: December 08:44 - CONCLUSION: 1. Negative left lower extremity DVT study. A Clay's cyst measuring 2.5 x 4.7 x 1 cm. Carlitos Corona MD Toe X-Ray 01/09/17 0000 Signed Impressions: Service Date/Time: Monday, January 09, 2017 17:40 - CONCLUSION: Soft tissue swelling third digit without bony destruction. Wilfredo Maddox MD FACR Physical Exam HEENT: Normocephalic. CHEST: CTA CARDIAC: Irregular rhythm. ABDOMEN: Soft, obese, mildly distended. EXTREMITIES: No clubbing, cyanosis, + BLE pedal edema. SKIN: Normal; no rash; no jaundice. RESEARCH PROFESSOR: No focal deficits; alert and oriented x 3 (Lo,Fabby Lemos [employer]ACHINE) Assessment and Plan Plan ASSESSMENT: - Upper GIB, Hematemesis. Recent STEMI, s/p Bare metal stent (12/21). Discharged home on Brilinta, ASA, Prednisone. Reports a lot of "stomach issues" since he went home and has been taking Maalox. Started vomiting dark red blood (large amount)- multiple episodes for 2-3 hours. Was having epigastric pain radiating up his esophagus, and a dull ache LUQ--- > epigastric area. Denies any hx of PUD. Brilinta and ASA on hold. EGD 01/11/17--Large gastric residuals and gastritis. There is a small concern for possible small bowel obstruction although the residual could also be related to gastroparesis found large gastric residues. PPI. - Gastroparesis. GES (01/14/17)---> Markedly prolonged gastric emptying with no response to Reglan. Having some constipation. Miralax. Trial of bethanechol. - Anemia, acute blood loss. HH stable 10.3/32.2. - Abdominal pain, n/v, reflux. Small concern for possible sbo vs. gastroparesis. KUB (01/12/17)---> No acute abdominal abnormality is identified, severe atherosclerotic disease. GES with gastroparesis Has not had bowel movement in 3 days. Clinically, mildly distended, no n/v. Tolerating diet. Miralax. Trial of bethanechol - CHF, CAD with recent STEMI, Atrial fibrillation. S/P cardiac catheterization ( 12/21/16)--acute thrombotic occlusion of the mid and distal left anterior descending coronary artery, successful rheolytic thrombectomy of the left anterior descending coronary artery, successful percutaneous intervention with bare metal stents to the mid and distal left anterior descending coronary artery. He was discharged on Aspirin and Brilinta. Cardiology following, feels that his elevated troponin are secondary to his recent HI 3 weeks ago and some demand mediated response to his congestive heart failure. - COPD Exacerbation, Bronchitis. Steroids, Abx, Nebs per attending. - Acute on CKD, per renal. - DM, HTN, Hyperlipidemia, LLE wound per attending. PLAN: - Soft diet - Trial of bethanechol - Protonix 40mg po BID - Miralax 17gram po daily - Supportive care - Further recommendations to follow based on results of above - Patient seen and examined by Dr. Purcell and myself and this note is written on his behalf (Fabby Lo) Physician Comments Patient was seen and examined, agree with above plan (Ra Purcell MD) Fabby Lo Jan 15, 2017 13:32 Ra Purcell MD Jan 16, 2017 13:18
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
[2017-01-15] MEDS: BETHANECHOL CHL 25 MG TAB PO SCH ×3 (15:17→21:45)
[2017-01-15] MEDS: CALCIUM ACETATE 667 MG CAP PO SCH (18:20)
[2017-01-15] MEDS: GABAPENTIN 400 MG CAP PO SCH (21:44)
[2017-01-16] VITALS (31 sets, daily range): BP systolic 101–140; BP diastolic 59–88; PULSE 58–86; RESP 16–24; TEMP 97–98.7; O2SAT 98
[2017-01-16] MEDS: BETHANECHOL CHL 25 MG TAB PO SCH ×3 (05:15→22:00)
[2017-01-16] MEDS: ISOSORBIDE MONONITRATE 60 MG TAB PO SCH (05:15)
[2017-01-16] MEDS: GABAPENTIN 300 MG CAP PO SCH (05:15)
[2017-01-16] MEDS: hydrALAZINE HCL 50 MG TAB PO SCH ×3 (05:15→22:00)
[2017-01-16 07:38] LABS: BICARBONATE 33.2 MEQ/L (21.0-32.0)
[2017-01-16] MEDS: POLYETHYLENE GLYCOL 17 GM PKG PO SCH (07:44)
[2017-01-16] MEDS: DOCUSATE SODIUM 50 MG/SENNA 8.6 MG TAB PO SCH ×2 (07:44→21:00)
[2017-01-16] MEDS: INSULIN ASPART SUPPLEMENTAL SCALE SQ SCH ×4 (08:09→21:00)
--- NOTE | 2017-01-16 08:39 | HHI.PR ---
Subjective Remarks f/u; nausea/acute kidney injury in no acute distress- however says that ' he's not feeling good today.' no nausea or emesis- questionable report of diarrhea per the patient but no report per RN. afebrile. d/w the RN. Objective Vitals Vital Signs Date Time Temp Pulse Resp B/P (MAP) Pulse Ox O2 Delivery O2 Flow Rate FiO2 01/16/17 08:00 97.0 70 16 101/59 (73) 01/16/17 06:01 65 01/16/17 05:01 66 01/16/17 04:01 63 01/16/17 03:01 66 01/16/17 03:01 97.9 66 18 113/70 (84) 98 01/16/17 02:35 98 01/16/17 02:01 65 01/16/17 01:01 58 01/16/17 00:01 66 01/15/17 23:01 97.7 65 18 118/72 (87) 98 01/15/17 23:01 60 01/15/17 22:01 63 01/15/17 21:01 67 01/15/17 20:01 79 01/15/17 19:01 97.5 79 18 126/72 (90) 94 01/15/17 19:00 68 01/15/17 18:00 74 01/15/17 17:00 70 01/15/17 16:00 72 01/15/17 15:18 98.7 75 17 106/62 (77) 98 01/15/17 15:00 72 01/15/17 14:00 74 01/15/17 13:00 66 01/15/17 12:00 70 01/15/17 11:34 63 01/15/17 11:32 98.2 83 18 112/62 (79) 97 01/15/17 10:13 65 01/15/17 09:00 72 I/O 01/15/17 01/15/17 01/15/17 01/16/17 01/16/17 01/16/17 07:00 15:00 23:00 07:00 15:00 23:00 Intake Total 240 ml 600 ml 240 ml Output Total 1700 ml 450 ml 500 ml Balance -1460 ml 150 ml -260 ml Intake Oral 240 ml 600 ml 240 ml Output Urine Total 1700 ml 450 ml 500 ml # Bowel Movements 4 Result Diagram: 01/15/17 0448 01/16/17 0510 Imaging Last Impressions Gastric Emptying Nuclear Medicine 01/14/17 0000 Signed Impressions: Service Date/Time: Saturday, January 14, 2017 11:18 - CONCLUSION: 1. Markedly prolonged gastric emptying with no response to Reglan eKnji Calderon MD Abdomen X-Ray 01/12/17 0000 Signed Impressions: Service Date/Time: Thursday, January 12, 2017 10:07 - CONCLUSION: 1. No acute abdominal abnormality is identified. 2. Severe atherosclerotic disease. Storm Allen MD Renal Ultrasound 01/11/17 0000 Signed Impressions: Service Date/Time: Wednesday, January 11, 2017 23:22 - CONCLUSION: No evidence of hydronephrosis. 2.8 cm left renal cyst. Clemente Matute MD Chest X-Ray 01/11/17 0000 Signed Impressions: Service Date/Time: Wednesday, January 11, 2017 08:46 - CONCLUSION: Mild improvement vascularity CHF Mike Scott MD Lower Extremity Ultrasound 01/10/17 0000 Signed Impressions: Service Date/Time: December 08:44 - CONCLUSION: 1. Negative left lower extremity DVT study. A Clay's cyst measuring 2.5 x 4.7 x 1 cm. Carlitos Corona MD Toe X-Ray 01/09/17 0000 Signed Impressions: Service Date/Time: Monday, January 09, 2017 17:40 - CONCLUSION: Soft tissue swelling third digit without bony destruction. Wilfredo Maddox MD FACR Objective Remarks GENERAL: in no acute distress and looks somewhat more comfortable today CARDIOVASCULAR; tachycardic with irregular rhythm without murmurs, gallops, or rubs. RESPIRATORY: Clear to auscultation. Breath sounds equal bilaterally. No wheezes , rales, or rhonchi. GASTROINTESTINAL: Abdomen soft, mild generalized tenderness and distended. Normal, active bowel sounds MUSCULOSKELETAL: erythema and swelling of the left third toe.bilateral pedal edema. NEURO: Alert & Oriented x4 to person, place, time, situation. Moves all ext x4 skin; some erythema over the left leg along with superficial ulcer on the left weeks Procedures EGD Medications and IVs Current Medications Methylprednisolone Sodium Succinate (SoluMEDROL INJ) 125 mg ONCE ONCE IV PUSH Last administered on 01/09/17 17:08; Start 01/09/17 at 16:00; Stop 01/09/17 at 16:01; Status DC Albuterol/ Ipratropium (Duoneb Neb) 1 ampule Q15M INH Last administered on 01/09 16:27; Start 01/09/17 at 16:00; Stop 01/09/17 at 16:16; Status DC Furosemide (Lasix Inj) 40 mg ONCE ONCE IV PUSH Last administered on 01/09/17 18:55; Start 01/09/17 at 18:15; Stop 01/09/17 at 18:16; Status DC Trimethoprim/ Sulfamethoxazole (Bactrim Ds 800-160 Mg) 1 tab ONCE ONCE PO Last administered on 01/09/17 20:53; Start 01/09/17 at 20:00; Stop 01/09/17 at 20:01; Status DC Dextrose (D50w (Vial) Inj) 50 ml UNSCH PRN IV PUSH HYPOGLYCEMIA-SEE COMMENTS; Start 01/09/17 at 18:30 Glucagon (Glucagon Inj) 1 mg UNSCH PRN OTHER HYPOGLYCEMIA-SEE COMMENTS; Start 01/09/17 at 18:30 Insulin Aspart (NovoLOG SUPPLEMENTAL SCALE) 1 ACHS SLIDING SCALE SQ Last administered on 01/15/17 21:00; Start 01/09/17 at 21:00 Sodium Chloride (NS Flush) 2 ml UNSCH PRN IV FLUSH FLUSH AFTER USING IV ACCESS ; Start 01/09/17 at 18:30; Stop 01/09/17 at 19:26; Status DC Sodium Chloride (NS Flush) 2 ml BID IV FLUSH ; Start 01/09/17 at 21:00; Stop at 21:00; Status DC Acetaminophen (Tylenol) 650 mg Q4H PRN PO TEMP > 100.4; Start 01/09/17 at 18:30 Ondansetron HCl (Zofran Inj) 4 mg Q6H PRN IVP NAUSEA OR VOMITING Last administered on 01/12/17 22:36; Start 01/09/17 at 18:30 Prochlorperazine (Compazine Supp) 25 mg Q12H PRN RECTAL NAUSEA OR VOMITING; Start 01/09/17 at 18:30 Acetaminophen (Tylenol) 650 mg Q6H PRN PO PAIN SCALE 1 TO 2; Start 01/09/17 at 18:30 Oxycodone/ Acetaminophen (Percocet 5-325 Mg) 1 tab Q6H PRN PO PAIN SCALE 3 TO 5; Start 01/09/17 at 18:30 Oxycodone/ Acetaminophen (Percocet 10-325 Mg) 1 tab Q6H PRN PO PAIN SCALE 6 TO 10; Start 01/09/17 at 18:30 Morphine Sulfate (Morphine Inj) 2 mg Q3H PRN IV PUSH Pain 3-5; if unable to take PO; Start 01/09/17 at 18:30 Morphine Sulfate (Morphine Inj) 4 mg Q3H PRN IV PUSH Pain 6-10;if unable to take PO; Start 01/09/17 at 18:30 Naloxone HCl (Narcan Inj) 0.4 mg UNSCH PRN IV PUSH SEE LABEL COMMENTS; Start at 18:30 Senna/Docusate Sodium (Ofe-Colace) 1 tab BID PO Last administered on 21:46; Start 01/09/17 at 21:00 Magnesium Hydroxide (Milk Of Magnesia Liq) 30 ml Q12H PRN PO MILD - MODERATE CONSTIPATION; Start 01/09/17 at 18:30 Sennosides (Senokot) 17.2 mg Q12H PRN PO MODERATE - SEVERE CONSTIPATION; Start 01/09/17 at 18:30 Bisacodyl (Dulcolax Supp) 10 mg DAILY PRN RECTAL SEVERE CONSITIPATION; Start at 18:30 Lactulose (Lactulose Liq) 30 ml DAILY PRN PO SEVERE CONSITIPATION; Start at 18:30 Furosemide (Lasix Inj) 40 mg Q12H IV Last administered on 01/10/17 21:56; Start 01/09/17 at 21:00; Stop 01/11/17 at 07:58; Status DC Vancomycin HCl 1000 mg/Sodium Chloride 250 ml @ 250 mls/hr Q12H IV ; Start at 18:30; Stop 01/09/17 at 20:22; Status DC Cefepime HCl 1000 mg/Sodium Chloride 100 ml @ 200 mls/hr Q8H IV Last administered on 9/22/17at 04:27; Start 01/09/17 at 20:00; Stop 01/11/17 at 08:53 ; Status DC Pharmacy Profile Note 0 ml @ 0 mls/hr UNSCH OTHER ; Start 01/09/17 at 18:30; Stop 01/11/17 at 08:53; Status DC Albuterol/ Ipratropium (Duoneb Neb) 1 ampule Q4HR NEB INH Last administered on 01/13/17 15:42; Start 01/09/17 at 20:00; Stop 01/13/17 at 19:59; Status DC Albuterol Sulfate (Albuterol Neb) 2.5 mg Q2HR NEB PRN INH SHORTNESS OF BREATH; Start 01/09/17 at 18:45 Budesonide/ Formoterol Fumarate (Symbicort 160-4.5 Inh) 2 puff Q12HR INH Last administered on 01/15/17 09:07; Start 01/09/17 at 21:00 Methylprednisolone Sodium Succinate (SoluMEDROL INJ) 60 mg Q12H IV PUSH Last administered on 01/11/17 21:38; Start 01/09/17 at 21:00; Stop 01/12/17 at 08:13 ; Status DC Guaifenesin (Mucinex Er) 600 mg BID PO Last administered on 01/15/17 21:44; Start 01/09/17 at 21:00 Aspirin (Aspirin Chew) 81 mg DAILY PO Last administered on 01/10/17 08:31; Start 01/09/17 at 20:00; Status Future Hold Atorvastatin Calcium (Lipitor) 40 mg HS PO Last administered on 01/10/17 21:00 ; Start 01/09/17 at 21:00 Gabapentin (Neurontin) 300 mg DAILY@0600 PO Last administered on 01/16/17 05: 15; Start 01/10/17 at 06:00 Hydralazine HCl (Apresoline) 50 mg Q8HR PO Last administered on 01/16/17 05:15 ; Start 01/09/17 at 22:00 Insulin Human NPH (NovoLIN N INJ) 22 units HS SQ Last administered on 20:19; Start 01/09/17 at 21:00; Status Future Hold Isosorbide Mononitrate (Imdur) 60 mg DAILY@07 PO Last administered on 05:15; Start 01/10/17 at 07:00 Lactobacillus Acidophilus (Lactinex) 1 tab TIDAC PO Last administered on 18:43; Start 01/10/17 at 08:00 Ticagrelor (Brilinta) 90 mg BID PO Last administered on 01/10/17 21:58; Start 01/09/17 at 21:00; Status Future Hold Tiotropium [place] (Spiriva Inh) 18 mcg DAILY INH ; Start 01/10/17 at 09:00; Stop 01/10/17 at 09:00; Status DC Pantoprazole Sodium (Protonix) 20 mg DAILY PO Last administered on 01/10/17 08 :31; Start 01/10/17 at 09:00; Stop 01/11/17 at 00:52; Status DC Gabapentin (Neurontin) 400 mg HS PO Last administered on 01/15/17 21:44; Start 01/09/17 at 21:00 Nitroglycerin (Nitrostat Sl) 0.4 mg Q5M PRN SL CHEST PAIN; Start 01/09/17 at 18 :45 Heparin Sodium/ Dextrose 250 ml @ 16.8 mls/hr TITRATE PRN IV Coagulation management Last administered on 01/10/17 16:40; Start 01/09/17 at 19:00; Status Future Hold Sodium Chloride (NS Flush) 2 ml BID IV FLUSH Last administered on 01/15/17 21: 46; Start 01/09/17 at 21:00 Sodium Chloride (NS Flush) 2 ml UNSCH PRN IV FLUSH FLUSH AFTER USING IV ACCESS ; Start 01/09/17 at 19:00 Alprazolam (Xanax) 0.25 mg Q8H PRN PO ANXIETY Last administered on 01/12/17 23 :39; Start 01/09/17 at 19:00 Vancomycin HCl 1500 mg/Sodium Chloride 515 ml @ 257.5 mls/ hr Q24H IV ; Start 01/09/17 at 22:00; Stop 01/10/17 at 10:03; Status DC Miscellaneous Information SPECIFIC LAB TO BE DRAWN:VANCO TROUGH DATE TO BE DRVernell.. ONCE ONCE .XX ; Start 01/12/17 at 21:45; Stop 01/12/17 at 21:46; Status Cancel Furosemide (Lasix Inj) 40 mg ONCE ONCE IV PUSH Last administered on 01/10/17 01:36; Start 01/10/17 at 01:30; Stop 01/10/17 at 01:31; Status DC Metoprolol Tartrate (Lopressor) 50 mg Q12HR PO Last administered on 01/15/17 21:45; Start 01/10/17 at 09:00 Vancomycin HCl 1500 mg/Sodium Chloride 515 ml @ 257.5 mls/ hr ONCE ONCE IV Last administered on 01/10/17 11:00; Start 01/10/17 at 11:00; Stop 01/10/17 at 12:59; Status DC Al Hydrox/Mg Hydrox/Simethicone (Mag-Al Plus Susp Liq) 30 ml ONCE ONCE PO Last administered on 01/10/17 22:45; Start 01/10/17 at 22:45; Stop 01/10/17 at 22:46; Status DC Pantoprazole Sodium 80 mg/ Sodium Chloride 100 ml @ 10 mls/hr Q10H IV Last administered on 01/14/17 00:39; Start 01/11/17 at 02:00; Stop 01/14/17 at 09:02 ; Status DC Pantoprazole Sodium 80 mg/ Sodium Chloride 35 ml @ 420 mls/hr Q5M ONCE IV Last administered on 01/11/17 01:49; Start 01/11/17 at 01:49; Stop 01/11/17 at 01:53; Status DC Propofol (Diprivan 200 Mg/20 ml Inj) 400 mg STK-MED ONCE .ROUTE ; Start at 12:10; Stop 01/11/17 at 12:11; Status DC Lactated Ringer's 1,000 ml @ 30 mls/hr Q24H ONCE IV Last administered on 12:19; Start 01/11/17 at 13:00; Stop 01/12/17 at 12:59; Status DC Miscellaneous Information ALL NURSING DEPARTME... UNSCH PRN .XX SEE LABEL COMMENTS; Start 01/11/17 at 12:56; Stop 01/12/17 at 12:55; Status DC Bumetanide (Bumex Inj) 2 mg Q8H IV PUSH Last administered on 01/15/17 12:52; Start 01/11/17 at 20:00; Stop 01/15/17 at 14:09; Status DC Chlorothiazide Sodium (Diuril Inj) 500 mg ONCE ONCE IV Last administered on 21:57; Start 01/11/17 at 20:00; Stop 01/11/17 at 21:04; Status DC Bacitracin (Bacitracin Oint Packet) 0.9 gm DAILY TOPICAL Last administered on 09:09; Start 01/12/17 at 09:00 Methylprednisolone Sodium Succinate (SoluMEDROL INJ) 40 mg Q12H IV PUSH Last administered on 01/12/17 22:41; Start 01/12/17 at 09:00; Stop 01/13/17 at 08:26 ; Status DC Cefepime HCl 1000 mg/Sodium Chloride 100 ml @ 200 mls/hr DAILY IV Last administered on 01/12/17 09:10; Start 01/12/17 at 09:00; Stop 01/13/17 at 08:26 ; Status DC Ergocalciferol (Drisdol) 50,000 units Q7D PO Last administered on 01/12/17 16: 00; Start 01/12/17 at 16:00 Pantoprazole Sodium (Protonix Inj) 40 mg Q24H IV PUSH ; Start 01/12/17 at 16:45 ; Status UNV Methylprednisolone Sodium Succinate (SoluMEDROL INJ) 20 mg Q12H IV PUSH Last administered on 01/15/17 21:45; Start 01/13/17 at 09:00 Sodium Polystyrene Sulfonate (Kayexalate Liq) 15 gm ONCE ONCE PO Last administered on 01/13/17 11:45; Start 01/13/17 at 11:00; Stop 01/13/17 at 11:01 ; Status DC Sodium Polystyrene Sulfonate (Kayexalate Liq) 15 gm ONCE ONCE PO Last administered on 01/13/17 11:45; Start 01/13/17 at 11:15; Stop 01/13/17 at 11:26 ; Status DC Chlorothiazide Sodium (Diuril Inj) 500 mg ONCE ONCE IV Last administered on 11:15; Start 01/13/17 at 11:15; Stop 01/13/17 at 11:26; Status DC Dextrose (D50w (Syr) Inj) 50 ml STK-MED ONCE .ROUTE Last administered on 08:17; Start 01/14/17 at 08:07; Stop 01/14/17 at 08:08; Status DC Pantoprazole Sodium (Protonix) 40 mg Q12HR PO Last administered on 01/15/17 21 :45; Start 01/14/17 at 09:00 Polyethylene Glycol (Miralax) 17 gm DAILY PO ; Start 01/14/17 at 09:00 Metoclopramide HCl (Reglan Inj) 10 mg STK-MED ONCE .ROUTE Last administered on 01/14/17 13:01; Start 01/14/17 at 13:01; Stop 01/14/17 at 13:02; Status DC Lidocaine HCl (Xylocaine-Mpf 1% Inj) 5 ml STK-MED ONCE OTHER ; Start 01/11/17 at 12:00; Stop 01/14/17 at 16:06; Status DC Succinylcholine Chloride (Quelicin Inj) 100 mg STK-MED ONCE IV PUSH ; Start at 12:00; Stop 01/14/17 at 16:06; Status DC Ondansetron HCl (Zofran Inj) 4 mg STK-MED ONCE IV PUSH ; Start 01/11/17 at 12:00 ; Stop 01/14/17 at 16:06; Status DC Fentanyl Citrate (fentaNYL INJ) 100 mcg STK-MED ONCE IV ; Start 01/11/17 at 12: 00; Stop 01/14/17 at 16:06; Status DC Bethanechol Chloride (Urecholine) 12.5 mg Q8HR PO Last administered on 05:15; Start 01/15/17 at 14:00 Miscellaneous (Pill Splitter) 1 ea UNSCH PRN OTHER SEE LABEL COMMENTS; Start at 14:15 Bumetanide (Bumex Inj) 2 mg Q12HR IV PUSH ; Start 01/16/17 at 09:00 Calcium Acetate (Phoslo) 667 mg TIDPC PO Last administered on 01/15/17 18:20; Start 01/15/17 at 18:30 A/P Assessment and Plan A/P Questionable CHF exacerbation COPD exacerbation - secondary to medication noncompliance - echocardiogram with EF 65% - started on Bumex - switch to po prednisone soon. - continue neb treatment - Supplemental oxygen to maintain O2 sats above 92% - Continue home bronchodilators - Monitor respiratory status - IS - Strict I&Os - Salt and fluid restricted diet Chest pain with elevated troponin CAD s/p cardiac catheterization with implantation of bare metal stent 12/21/16 Atrial fibrillation -stopped heparin drip due to GI bleed - Continuous cardiac monitoring - Supplemental oxygen - hold Brilinta and aspirin due to GI bleed; will resume soon - when ok with GI and cardiology - Continue isosorbide 50 mg daily - continue statin - continue with pain control -cardiology following. upper GI bleed delayed gastric emptying - s/p EGD; large gastric residual and gastritis - heparin drip on hold- will resume aspirin and Brilinta when ok with GI and cardiology - monitor H/H and transfuse as needed - continue protonix -trial of Bethanechol - GI following acute kidney injury superimposed on chronic renal insufficiency --renal US with no hydronephrosis - started on Bumex -SPEP with no abnormal bands - will monitor the renal function closely -nephrology following. hyperkalemia; resolved. DM with hypoglycemic episode- with no recurrence - Accu-Chek - Insulin sliding scale - will resume NPH at a lower dose -will monitor and adjust the regimen as needed. HTN HLD - Continue antihypertensive medications - resumed home statin therapy - Monitor BP Neuropathy - Resumed home gabapentin LLE wound with left third toe swelling and erythema - Wound care consult appreciated. - -blood cultures negative so far -podiatry consult appreciated; no need for antibiotics; stopped Cefepime- -venous doppler of the left leg negative for DVT Incidental finding of 1 cm irregular nodule right upper lobe - CT chest 12/23/16 - Recommend follow-up CT at approximately 3, 9 and 24 months and or contrast enhanced CT, PET and/or biopsy Chronic indwelling [place] with asymptomatic bacteriuria ; afebrile- likely contamination- will dc antibiotics. GI prophylaxis - PPI DVT prophylaxis -heparin discontinued due to GI bleed. Bob Phillips MD Jan 16, 2017 08:38
--- NOTE | 2017-01-16 08:59 | PD.CARD.PN ---
Subjective Subjective Remarks Had frequent bowel movement last night. No chest pain or dyspnea. Continues to have good diuresis. Creatinine unchanged Objective Vital Signs / I&O Vital Signs Date Time Temp Pulse Resp B/P (MAP) Pulse Ox O2 Delivery O2 Flow Rate FiO2 01/16/17 08:53 65 01/16/17 08:00 97.0 70 16 101/59 (73) 01/16/17 06:01 65 01/16/17 05:01 66 01/16/17 04:01 63 01/16/17 03:01 66 01/16/17 03:01 97.9 66 18 113/70 (84) 98 01/16/17 02:35 98 01/16/17 02:01 65 01/16/17 01:01 58 01/16/17 00:01 66 01/15/17 23:01 97.7 65 18 118/72 (87) 98 01/15/17 23:01 60 01/15/17 22:01 63 01/15/17 21:01 67 01/15/17 20:01 79 01/15/17 19:01 97.5 79 18 126/72 (90) 94 01/15/17 19:00 68 01/15/17 18:00 74 01/15/17 17:00 70 01/15/17 16:00 72 01/15/17 15:18 98.7 75 17 106/62 (77) 98 01/15/17 15:00 72 01/15/17 14:00 74 01/15/17 13:00 66 01/15/17 12:00 70 01/15/17 11:34 63 01/15/17 11:32 98.2 83 18 112/62 (79) 97 01/15/17 10:13 65 01/15/17 09:00 72 I/O 01/15/17 01/15/17 01/15/17 01/16/17 01/16/17 01/16/17 07:00 15:00 23:00 07:00 15:00 23:00 Intake Total 240 ml 600 ml 240 ml Output Total 1700 ml 450 ml 500 ml Balance -1460 ml 150 ml -260 ml Intake Oral 240 ml 600 ml 240 ml Output Urine Total 1700 ml 450 ml 500 ml # Bowel Movements 4 Physical Exam Lungs clear irregular rhythm @ 80 Abd soft Laboratory Laboratory Tests Test 01/16/17 05:10 Blood Urea Nitrogen 119 MG/DL Creatinine 3.76 MG/DL Random Glucose 116 MG/DL Calcium Level 7.7 MG/DL Sodium Level 136 MEQ/L Potassium Level 4.0 MEQ/L Chloride Level 95 MEQ/L Carbon Dioxide Level 33.2 MEQ/L Anion Gap 8 MEQ/L Estimat Glomerular Filtration Rate 15 ML/MIN Assessment and Plan Problem List: (1) Atrial fibrillation ICD Codes: I48.91 - Atrial fibrillation Status: Chronic Plan: HR well controlled. Stable CV (2) Congestive heart failure ICD Codes: I50.9 - Congestive heart failure Status: Acute Assessment and Plan CHF clinically resolved. Will d/c lasix and check BMp in AM. Recheck Cxr and BNP A fib rate controlled on metoprolol will continue Suggest GI consult- will hold breakfast this morning Problem Qualifiers (1) Congestive heart failure: Qualified Codes: I50.23 - Acute on chronic systolic (congestive) heart failure Kenji Rodríguez MD Jan 16, 2017 08:59
[2017-01-16] MEDS ORDERED: BUMETANIDE INJ 1 MG/4 ML VIAL IV PUSH SCH (09:00)
[2017-01-16] MEDS: BUDESONIDE-FORMOTEROL 160/4.5 MCG INHALER INH SCH ×2 (09:00→21:00)
[2017-01-16] MEDS: LACTOBACILLUS ACIDOPHILUS TAB PO SCH ×3 (10:13→17:47)
[2017-01-16] MEDS: SODIUM CHLORIDE 0.9% FLUSH 10 ML FLUSH IV FLUSH SCH ×2 (10:14→21:00)
[2017-01-16] MEDS: CALCIUM ACETATE 667 MG CAP PO SCH ×3 (10:16→17:47)
[2017-01-16] MEDS: methylPREDNISolone SOD SUCC 40 MG/1 ML VIAL IV PUSH SCH ×2 (10:16→21:00)
[2017-01-16] MEDS: METOPROLOL TARTRATE 50 MG TAB PO SCH ×2 (10:17→21:00)
[2017-01-16] MEDS: guaiFENesin E.R. 600 MG TAB PO SCH ×2 (10:17→21:00)
[2017-01-16] MEDS: PANTOPRAZOLE SOD 40 MG DELAYED RELEASE TAB PO SCH ×2 (10:17→21:00)
[2017-01-16] MEDS: BACITRACIN OINT 0.9 GM PKT TOPICAL SCH (10:18)
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
[2017-01-16 15:51] LABS: MYELOPEROXIDASE LESS THAN 1.0 AI (<1.0); PROTEINASE-3 LESS THAN 1.0 AI (<1.0)
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
[2017-01-16] MEDS: GABAPENTIN 400 MG CAP PO SCH (21:00)
[2017-01-16] MEDS: ATORVASTATIN 40 MG TAB PO SCH (21:00)
[2017-01-16] MEDS ORDERED: INSULIN HUMAN NPH 1,000 UNITS/10 ML VIAL SQ SCH (21:00)
[2017-01-16] MEDS: BUMETANIDE INJ 1 MG/4 ML VIAL IV PUSH SCH (21:00)
[2017-01-16 23:54] LABS: KAPPA/LAMBDA FREE 1.05 (0.26-1.65)
[2017-01-17] VITALS (13 sets, daily range): BP systolic 118–126; BP diastolic 67–77; PULSE 58–75; RESP 18–24; TEMP 97.4–98.2; O2SAT 96–99
[2017-01-17] MEDS: ISOSORBIDE MONONITRATE 60 MG TAB PO SCH (05:19)
[2017-01-17] MEDS: BETHANECHOL CHL 25 MG TAB PO SCH ×3 (05:19→21:33)
[2017-01-17] MEDS: hydrALAZINE HCL 50 MG TAB PO SCH ×3 (05:19→21:32)
[2017-01-17] MEDS: GABAPENTIN 300 MG CAP PO SCH (05:19)
[2017-01-17 07:01] LABS: BICARBONATE 32.2 MEQ/L (21.0-32.0); POTASSIUM 4.3 MEQ/L (3.5-5.1)
--- NOTE | 2017-01-17 08:06 | HHI.PR ---
Subjective Remarks in no acute distress. says that ' had lots of gas but no BM'. denies chest pain or sob. no fever. Objective Vitals Vital Signs Date Time Temp Pulse Resp B/P (MAP) Pulse Ox O2 Delivery O2 Flow Rate FiO2 01/17/17 06:00 58 01/17/17 05:00 62 01/17/17 04:33 97.4 75 24 123/72 (89) 98 01/17/17 04:00 75 01/17/17 03:00 68 01/17/17 02:00 68 01/17/17 01:00 62 01/17/17 00:00 68 01/16/17 23:18 97.7 72 24 115/68 (84) 98 01/16/17 23:00 62 01/16/17 22:00 64 01/16/17 21:00 70 01/16/17 20:00 72 01/16/17 19:22 98.0 69 24 140/88 (105) 98 01/16/17 19:00 72 01/16/17 18:00 75 01/16/17 17:00 74 01/16/17 16:54 98 21 01/16/17 16:01 72 01/16/17 15:05 71 01/16/17 15:00 97.4 75 24 127/84 (98) 98 01/16/17 14:04 69 01/16/17 13:00 80 01/16/17 12:15 65 01/16/17 11:25 98.7 80 22 126/67 (86) 98 01/16/17 11:06 71 01/16/17 11:02 79 01/16/17 10:05 72 01/16/17 08:53 65 I/O 01/16/17 01/16/17 01/16/17 01/17/17 01/17/17 01/17/17 07:00 15:00 23:00 07:00 15:00 23:00 Intake Total 240 ml 480 ml 720 ml Output Total 500 ml 625 ml 600 ml Balance -260 ml -145 ml 120 ml Intake Oral 240 ml 480 ml 720 ml Output Urine Total 500 ml 625 ml 600 ml # Bowel Movements 4 1 Result Diagram: 01/15/17 0448 01/17/17 0508 Imaging Last Impressions Gastric Emptying Nuclear Medicine 01/14/17 0000 Signed Impressions: Service Date/Time: Saturday, January 14, 2017 11:18 - CONCLUSION: 1. Markedly prolonged gastric emptying with no response to Reglan Kenji Calderon MD Abdomen X-Ray 01/12/17 0000 Signed Impressions: Service Date/Time: Thursday, January 12, 2017 10:07 - CONCLUSION: 1. No acute abdominal abnormality is identified. 2. Severe atherosclerotic disease. Storm Allen MD Renal Ultrasound 01/11/17 0000 Signed Impressions: Service Date/Time: Wednesday, January 11, 2017 23:22 - CONCLUSION: No evidence of hydronephrosis. 2.8 cm left renal cyst. Clemente Matute MD Chest X-Ray 01/11/17 0000 Signed Impressions: Service Date/Time: Wednesday, January 11, 2017 08:46 - CONCLUSION: Mild improvement vascularity CHF Mike Scott MD Lower Extremity Ultrasound 01/10/17 0000 Signed Impressions: Service Date/Time: December 08:44 - CONCLUSION: 1. Negative left lower extremity DVT study. A Clay's cyst measuring 2.5 x 4.7 x 1 cm. Carlitos Corona MD Toe X-Ray 01/09/17 0000 Signed Impressions: Service Date/Time: Monday, January 09, 2017 17:40 - CONCLUSION: Soft tissue swelling third digit without bony destruction. Wilfredo Maddox MD FACR Objective Remarks GENERAL: in no acute distress and looks somewhat more comfortable today CARDIOVASCULAR; tachycardic with irregular rhythm without murmurs, gallops, or rubs. RESPIRATORY: Clear to auscultation. Breath sounds equal bilaterally. No wheezes , rales, or rhonchi. GASTROINTESTINAL: Abdomen soft, mild generalized tenderness and distended. Normal, active bowel sounds MUSCULOSKELETAL: erythema and swelling of the left third toe.bilateral pedal edema. NEURO: Alert & Oriented x4 to person, place, time, situation. Moves all ext x4 skin; some erythema over the left leg along with superficial ulcer on the left weeks Procedures EGD Medications and IVs Current Medications Methylprednisolone Sodium Succinate (SoluMEDROL INJ) 125 mg ONCE ONCE IV PUSH Last administered on 01/09/17t 17:08; Start 01/09/17 at 16:00; Stop 01/09/17 at 16:01; Status DC Albuterol/ Ipratropium (Duoneb Neb) 1 ampule Q15M INH Last administered on 01/09 16:27; Start 01/09/17 at 16:00; Stop 01/09/17 at 16:16; Status DC Furosemide (Lasix Inj) 40 mg ONCE ONCE IV PUSH Last administered on 01/09/17 18:55; Start 01/09/17 at 18:15; Stop 01/09/17 at 18:16; Status DC Trimethoprim/ Sulfamethoxazole (Bactrim Ds 800-160 Mg) 1 tab ONCE ONCE PO Last administered on 01/09/17 20:53; Start 01/09/17 at 20:00; Stop 01/09/17 at 20:01; Status DC Dextrose (D50w (Vial) Inj) 50 ml UNSCH PRN IV PUSH HYPOGLYCEMIA-SEE COMMENTS; Start 01/09/17 at 18:30 Glucagon (Glucagon Inj) 1 mg UNSCH PRN OTHER HYPOGLYCEMIA-SEE COMMENTS; Start 01/09/17 at 18:30 Insulin Aspart (NovoLOG SUPPLEMENTAL SCALE) 1 ACHS SLIDING SCALE SQ Last administered on 01/16/17 21:00; Start 01/09/17 at 21:00 Sodium Chloride (NS Flush) 2 ml UNSCH PRN IV FLUSH FLUSH AFTER USING IV ACCESS ; Start 01/09/17 at 18:30; Stop 01/09/17 at 19:26; Status DC Sodium Chloride (NS Flush) 2 ml BID IV FLUSH ; Start 01/09/17 at 21:00; Stop at 21:00; Status DC Acetaminophen (Tylenol) 650 mg Q4H PRN PO TEMP > 100.4; Start 01/09/17 at 18:30 Ondansetron HCl (Zofran Inj) 4 mg Q6H PRN IVP NAUSEA OR VOMITING Last administered on 01/12/17 22:36; Start 01/09/17 at 18:30 Prochlorperazine (Compazine Supp) 25 mg Q12H PRN RECTAL NAUSEA OR VOMITING; Start 01/09/17 at 18:30 Acetaminophen (Tylenol) 650 mg Q6H PRN PO PAIN SCALE 1 TO 2; Start 01/09/17 at 18:30 Oxycodone/ Acetaminophen (Percocet 5-325 Mg) 1 tab Q6H PRN PO PAIN SCALE 3 TO 5; Start 01/09/17 at 18:30 Oxycodone/ Acetaminophen (Percocet 10-325 Mg) 1 tab Q6H PRN PO PAIN SCALE 6 TO 10; Start 01/09/17 at 18:30 Morphine Sulfate (Morphine Inj) 2 mg Q3H PRN IV PUSH Pain 3-5; if unable to take PO; Start 01/09/17 at 18:30 Morphine Sulfate (Morphine Inj) 4 mg Q3H PRN IV PUSH Pain 6-10;if unable to take PO; Start 01/09/17 at 18:30 Naloxone HCl (Narcan Inj) 0.4 mg UNSCH PRN IV PUSH SEE LABEL COMMENTS; Start at 18:30 Senna/Docusate Sodium (Ofe-Colace) 1 tab BID PO Last administered on 21:00; Start 01/09/17 at 21:00 Magnesium Hydroxide (Milk Of Magnesia Liq) 30 ml Q12H PRN PO MILD - MODERATE CONSTIPATION; Start 01/09/17 at 18:30 Sennosides (Senokot) 17.2 mg Q12H PRN PO MODERATE - SEVERE CONSTIPATION; Start 01/09/17 at 18:30 Bisacodyl (Dulcolax Supp) 10 mg DAILY PRN RECTAL SEVERE CONSITIPATION; Start at 18:30 Lactulose (Lactulose Liq) 30 ml DAILY PRN PO SEVERE CONSITIPATION; Start at 18:30 Furosemide (Lasix Inj) 40 mg Q12H IV Last administered on 01/10/17 21:56; Start 01/09/17 at 21:00; Stop 01/11/17 at 07:58; Status DC Vancomycin HCl 1000 mg/Sodium Chloride 250 ml @ 250 mls/hr Q12H IV ; Start at 18:30; Stop 01/09/17 at 20:22; Status DC Cefepime HCl 1000 mg/Sodium Chloride 100 ml @ 200 mls/hr Q8H IV Last administered on 01/11/17 04:27; Start 01/09/17 at 20:00; Stop 01/11/17 at 08:53 ; Status DC Pharmacy Profile Note 0 ml @ 0 mls/hr UNSCH OTHER ; Start 01/09/17 at 18:30; Stop 01/11/17 at 08:53; Status DC Albuterol/ Ipratropium (Duoneb Neb) 1 ampule Q4HR NEB INH Last administered on 01/13/17 15:42; Start 01/09/17 at 20:00; Stop 01/13/17 at 19:59; Status DC Albuterol Sulfate (Albuterol Neb) 2.5 mg Q2HR NEB PRN INH SHORTNESS OF BREATH; Start 01/09/17 at 18:45 Budesonide/ Formoterol Fumarate (Symbicort 160-4.5 Inh) 2 puff Q12HR INH Last administered on 01/16/17 21:00; Start 01/09/17 at 21:00 Methylprednisolone Sodium Succinate (SoluMEDROL INJ) 60 mg Q12H IV PUSH Last administered on 01/11/17 21:38; Start 01/09/17 at 21:00; Stop 01/12/17 at 08:13 ; Status DC Guaifenesin (Mucinex Er) 600 mg BID PO Last administered on 01/16/17 21:00; Start 01/09/17 at 21:00 Aspirin (Aspirin Chew) 81 mg DAILY PO Last administered on 01/10/17 08:31; Start 01/09/17 at 20:00; Status Future Hold Atorvastatin Calcium (Lipitor) 40 mg HS PO Last administered on 01/16/17 21:00 ; Start 01/09/17 at 21:00 Gabapentin (Neurontin) 300 mg DAILY@0600 PO Last administered on 01/17/17 05: 19; Start 01/10/17 at 06:00 Hydralazine HCl (Apresoline) 50 mg Q8HR PO Last administered on 01/17/17 05:19 ; Start 01/09/17 at 22:00 Insulin Human NPH (NovoLIN N INJ) 22 units HS SQ Last administered on 20:19; Start 01/09/17 at 21:00; Stop 01/16/17 at 11:31; Status DC Isosorbide Mononitrate (Imdur) 60 mg DAILY@07 PO Last administered on 05:19; Start 01/10/17 at 07:00 Lactobacillus Acidophilus (Lactinex) 1 tab TIDAC PO Last administered on 17:47; Start 01/10/17 at 08:00 Ticagrelor (Brilinta) 90 mg BID PO Last administered on 01/10/17 21:58; Start 01/09/17 at 21:00; Status Future Hold Tiotropium Jackson (Spiriva Inh) 18 mcg DAILY INH ; Start 01/10/17 at 09:00; Stop 01/10/17 at 09:00; Status DC Pantoprazole Sodium (Protonix) 20 mg DAILY PO Last administered on 01/10/17 08 :31; Start 01/10/17 at 09:00; Stop 01/11/17 at 00:52; Status DC Gabapentin (Neurontin) 400 mg HS PO Last administered on 01/16/17 21:00; Start 01/09/17 at 21:00 Nitroglycerin (Nitrostat Sl) 0.4 mg Q5M PRN SL CHEST PAIN; Start 01/09/17 at 18 :45 Heparin Sodium/ Dextrose 250 ml @ 16.8 mls/hr TITRATE PRN IV Coagulation management Last administered on 01/10/17 16:40; Start 01/09/17 at 19:00; Status Future Hold Sodium Chloride (NS Flush) 2 ml BID IV FLUSH Last administered on 01/16/17 21: 00; Start 01/09/17 at 21:00 Sodium Chloride (NS Flush) 2 ml UNSCH PRN IV FLUSH FLUSH AFTER USING IV ACCESS ; Start 01/09/17 at 19:00 Alprazolam (Xanax) 0.25 mg Q8H PRN PO ANXIETY Last administered on 01/12/17 23 :39; Start 01/09/17 at 19:00 Vancomycin HCl 1500 mg/Sodium Chloride 515 ml @ 257.5 mls/ hr Q24H IV ; Start 01/09/17 at 22:00; Stop 01/10/17 at 10:03; Status DC Miscellaneous Information SPECIFIC LAB TO BE DRAWN:VANCO TROUGH DATE TO BE DR... ONCE ONCE .XX ; Start 01/12/17 at 21:45; Stop 01/12/17 at 21:46; Status Cancel Furosemide (Lasix Inj) 40 mg ONCE ONCE IV PUSH Last administered on 01/10/17 01:36; Start 01/10/17 at 01:30; Stop 01/10/17 at 01:31; Status DC Metoprolol Tartrate (Lopressor) 50 mg Q12HR PO Last administered on 01/15/17 21:45; Start 01/10/17 at 09:00; Stop 01/16/17 at 09:01; Status DC Vancomycin HCl 1500 mg/Sodium Chloride 515 ml @ 257.5 mls/ hr ONCE ONCE IV Last administered on 01/10/17 11:00; Start 01/10/17 at 11:00; Stop 01/10/17 at 12:59; Status DC Al Hydrox/Mg Hydrox/Simethicone (Mag-Al Plus Susp Liq) 30 ml ONCE ONCE PO Last administered on 01/10/17 22:45; Start 01/10/17 at 22:45; Stop 01/10/17 at 22:46; Status DC Pantoprazole Sodium 80 mg/ Sodium Chloride 100 ml @ 10 mls/hr Q10H IV Last administered on 01/14/17 00:39; Start 01/11/17 at 02:00; Stop 01/14/17 at 09:02 ; Status DC Pantoprazole Sodium 80 mg/ Sodium Chloride 35 ml @ 420 mls/hr Q5M ONCE IV Last administered on 01/11/17 01:49; Start 01/11/17 at 01:49; Stop 01/11/17 at 01:53; Status DC Propofol (Diprivan 200 Mg/20 ml Inj) 400 mg STK-MED ONCE .ROUTE ; Start at 12:10; Stop 01/11/17 at 12:11; Status DC Lactated Ringer's 1,000 ml @ 30 mls/hr Q24H ONCE IV Last administered on 12:19; Start 01/11/17 at 13:00; Stop 01/12/17 at 12:59; Status DC Miscellaneous Information ALL NURSING DEPARTME... UNSCH PRN .XX SEE LABEL COMMENTS; Start 01/11/17 at 12:56; Stop 01/12/17 at 12:55; Status DC Bumetanide (Bumex Inj) 2 mg Q8H IV PUSH Last administered on 01/15/17 12:52; Start 01/11/17 at 20:00; Stop 01/15/17 at 14:09; Status DC Chlorothiazide Sodium (Diuril Inj) 500 mg ONCE ONCE IV Last administered on 21:57; Start 01/11/17 at 20:00; Stop 01/11/17 at 21:04; Status DC Bacitracin (Bacitracin Oint Packet) 0.9 gm DAILY TOPICAL Last administered on 10:18; Start 01/12/17 at 09:00 Methylprednisolone Sodium Succinate (SoluMEDROL INJ) 40 mg Q12H IV PUSH Last administered on 01/12/17 22:41; Start 01/12/17 at 09:00; Stop 01/13/17 at 08:26 ; Status DC Cefepime HCl 1000 mg/Sodium Chloride 100 ml @ 200 mls/hr DAILY IV Last administered on 01/12/17 09:10; Start 01/12/17 at 09:00; Stop 01/13/17 at 08:26 ; Status DC Ergocalciferol (Drisdol) 50,000 units Q7D PO Last administered on 01/12/17 16: 00; Start 01/12/17 at 16:00 Pantoprazole Sodium (Protonix Inj) 40 mg Q24H IV PUSH ; Start 01/12/17 at 16:45 ; Status UNV Methylprednisolone Sodium Succinate (SoluMEDROL INJ) 20 mg Q12H IV PUSH Last administered on 01/16/17 21:00; Start 01/13/17 at 09:00 Sodium Polystyrene Sulfonate (Kayexalate Liq) 15 gm ONCE ONCE PO Last administered on 01/13/17 11:45; Start 01/13/17 at 11:00; Stop 01/13/17 at 11:01 ; Status DC Sodium Polystyrene Sulfonate (Kayexalate Liq) 15 gm ONCE ONCE PO Last administered on 01/13/17 11:45; Start 01/13/17 at 11:15; Stop 01/13/17 at 11:26 ; Status DC Chlorothiazide Sodium (Diuril Inj) 500 mg ONCE ONCE IV Last administered on 11:15; Start 01/13/17 at 11:15; Stop 01/13/17 at 11:26; Status DC Dextrose (D50w (Syr) Inj) 50 ml STK-MED ONCE .ROUTE Last administered on 08:17; Start 01/14/17 at 08:07; Stop 01/14/17 at 08:08; Status DC Pantoprazole Sodium (Protonix) 40 mg Q12HR PO Last administered on 01/16/17 21 :00; Start 01/14/17 at 09:00 Polyethylene Glycol (Miralax) 17 gm DAILY PO ; Start 01/14/17 at 09:00 Metoclopramide HCl (Reglan Inj) 10 mg STK-MED ONCE .ROUTE Last administered on 01/14/17 13:01; Start 01/14/17 at 13:01; Stop 01/14/17 at 13:02; Status DC Lidocaine HCl (Xylocaine-Mpf 1% Inj) 5 ml STK-MED ONCE OTHER ; Start 01/11/17 at 12:00; Stop 01/14/17 at 16:06; Status DC Succinylcholine Chloride (Quelicin Inj) 100 mg STK-MED ONCE IV PUSH ; Start at 12:00; Stop 01/14/17 at 16:06; Status DC Ondansetron HCl (Zofran Inj) 4 mg STK-MED ONCE IV PUSH ; Start 01/11/17 at 12:00 ; Stop 01/14/17 at 16:06; Status DC Fentanyl Citrate (fentaNYL INJ) 100 mcg STK-MED ONCE IV ; Start 01/11/17 at 12: 00; Stop 01/14/17 at 16:06; Status DC Bethanechol Chloride (Urecholine) 12.5 mg Q8HR PO Last administered on 05:19; Start 01/15/17 at 14:00 Miscellaneous (Pill Splitter) 1 ea UNSCH PRN OTHER SEE LABEL COMMENTS; Start at 14:15 Bumetanide (Bumex Inj) 2 mg Q12HR IV PUSH Last administered on 01/16/17 10:16 ; Start 01/16/17 at 09:00; Stop 01/16/17 at 18:23; Status DC Calcium Acetate (Phoslo) 667 mg TIDPC PO Last administered on 01/16/17 17:47; Start 01/15/17 at 18:30 Metoprolol Tartrate (Lopressor) 75 mg Q12HR PO Last administered on 01/16/17 21:00; Start 01/16/17 at 10:00 Miscellaneous (Pill Splitter) 1 ea UNSCH PRN OTHER SEE LABEL COMMENTS; Start at 09:15 Insulin Human NPH (NovoLIN N INJ) 10 units HS SQ Last administered on 21:00; Start 01/16/17 at 21:00 Bumetanide (Bumex Inj) 1 mg Q12HR IV PUSH Last administered on 01/16/17 21:00 ; Start 01/16/17 at 21:00 A/P Assessment and Plan A/P Questionable CHF exacerbation COPD exacerbation - secondary to medication noncompliance - echocardiogram with EF 65% - started on Bumex - switch to po prednisone today. - continue neb treatment - Supplemental oxygen to maintain O2 sats above 92% - Continue home bronchodilators - Monitor respiratory status - IS - Strict I&Os - Salt and fluid restricted diet Chest pain with elevated troponin CAD s/p cardiac catheterization with implantation of bare metal stent 12/21/16 Atrial fibrillation -stopped heparin drip due to GI bleed - Continuous cardiac monitoring - Supplemental oxygen - hold Brilinta and aspirin due to GI bleed; will resume soon - when ok with GI and cardiology - Continue isosorbide 50 mg daily - continue statin - continue with pain control -cardiology following. upper GI bleed delayed gastric emptying - s/p EGD; large gastric residual and gastritis - heparin drip on hold- will resume aspirin and Brilinta when ok with GI and cardiology - monitor H/H and transfuse as needed - continue protonix -trial of Bethanechol - GI following acute kidney injury superimposed on chronic renal insufficiency --renal US with no hydronephrosis - started on Bumex -SPEP with no abnormal bands - will monitor the renal function closely -nephrology following. hyperkalemia; resolved. DM with hypoglycemic episode- with no recurrence - Accu-Chek - Insulin sliding scale - resumed NPH -the blood sugar levels expected to improve as steroids being tapered off. -will monitor and adjust the regimen as needed. HTN HLD - Continue antihypertensive medications - resumed home statin therapy - Monitor BP Neuropathy - Resumed home gabapentin LLE wound with left third toe swelling and erythema - Wound care consult appreciated. - -blood cultures negative so far -podiatry consult appreciated; no need for antibiotics. -venous doppler of the left leg negative for DVT Incidental finding of 1 cm irregular nodule right upper lobe - CT chest 12/23/16 - Recommend follow-up CT at approximately 3, 9 and 24 months and or contrast enhanced CT, PET and/or biopsy Chronic indwelling [place] with asymptomatic bacteriuria ; afebrile- likely contamination- will dc antibiotics. GI prophylaxis - PPI DVT prophylaxis -heparin was discontinued dur to GI bleed. Bob Phillips MD Jan 17, 2017 08:06
--- NOTE | 2017-01-17 08:14 | PD.CARD.PN ---
Subjective Subjective Remarks Feels about the same. Remains in a fib. No VT overnight Objective Vital Signs / I&O Vital Signs Date Time Temp Pulse Resp B/P (MAP) Pulse Ox O2 Delivery O2 Flow Rate FiO2 01/17/17 08:12 98.2 69 18 118/76 (90) 98 01/17/17 06:00 58 01/17/17 05:00 62 01/17/17 04:33 97.4 75 24 123/72 (89) 98 01/17/17 04:00 75 01/17/17 03:00 68 01/17/17 02:00 68 01/17/17 01:00 62 01/17/17 00:00 68 01/16/17 23:18 97.7 72 24 115/68 (84) 98 01/16/17 23:00 62 01/16/17 22:00 64 01/16/17 21:00 70 01/16/17 20:00 72 01/16/17 19:22 98.0 69 24 140/88 (105) 98 01/16/17 19:00 72 01/16/17 18:00 75 01/16/17 17:00 74 01/16/17 16:54 98 21 01/16/17 16:01 72 01/16/17 15:05 71 01/16/17 15:00 97.4 75 24 127/84 (98) 98 01/16/17 14:04 69 01/16/17 13:00 80 01/16/17 12:15 65 01/16/17 11:25 98.7 80 22 126/67 (86) 98 01/16/17 11:06 71 01/16/17 11:02 79 01/16/17 10:05 72 01/16/17 08:53 65 I/O 01/16/17 01/16/17 01/16/17 01/17/17 01/17/17 01/17/17 07:00 15:00 23:00 07:00 15:00 23:00 Intake Total 240 ml 480 ml 720 ml Output Total 500 ml 625 ml 600 ml Balance -260 ml -145 ml 120 ml Intake Oral 240 ml 480 ml 720 ml Output Urine Total 500 ml 625 ml 600 ml # Bowel Movements 4 1 Physical Exam Lungs clear irregular rhythm @ 80 Abd soft Laboratory Laboratory Tests Test 9/28/17 05:08 Blood Urea Nitrogen 124 MG/DL Creatinine 3.74 MG/DL Random Glucose 205 MG/DL Calcium Level 7.6 MG/DL Sodium Level 134 MEQ/L Potassium Level 4.3 MEQ/L Chloride Level 93 MEQ/L Carbon Dioxide Level 32.2 MEQ/L Anion Gap 9 MEQ/L Estimat Glomerular Filtration Rate 16 ML/MIN Assessment and Plan Problem List: (1) Atrial fibrillation ICD Codes: I48.91 - Atrial fibrillation Status: Chronic Plan: Continue present regimen (2) Congestive heart failure ICD Codes: I50.9 - Congestive heart failure Status: Acute Assessment and Plan CHF clinically resolved. Will d/c lasix and check BMp in AM. Recheck Cxr and BNP A fib rate controlled on metoprolol will continue Suggest GI consult- will hold breakfast this morning Problem Qualifiers (1) Congestive heart failure: Qualified Codes: I50.23 - Acute on chronic systolic (congestive) heart failure Kenji Rodríguez MD Jan 17, 2017 08:14
[2017-01-17] MEDS: DOCUSATE SODIUM 50 MG/SENNA 8.6 MG TAB PO SCH ×2 (09:00→21:00)
[2017-01-17] MEDS: POLYETHYLENE GLYCOL 17 GM PKG PO SCH (09:00)
[2017-01-17] MEDS: BUDESONIDE-FORMOTEROL 160/4.5 MCG INHALER INH SCH ×2 (09:00→21:00)
[2017-01-17] MEDS: METOPROLOL TARTRATE 50 MG TAB PO SCH ×2 (09:13→21:32)
[2017-01-17] MEDS: INSULIN ASPART SUPPLEMENTAL SCALE SQ SCH ×4 (09:13→21:00)
[2017-01-17] MEDS: PANTOPRAZOLE SOD 40 MG DELAYED RELEASE TAB PO SCH ×2 (09:14→21:32)
[2017-01-17] MEDS: guaiFENesin E.R. 600 MG TAB PO SCH ×2 (09:14→21:32)
[2017-01-17] MEDS: predniSONE 20 MG TAB PO SCH (09:14)
[2017-01-17] MEDS: CALCIUM ACETATE 667 MG CAP PO SCH ×3 (09:14→17:33)
[2017-01-17] MEDS: LACTOBACILLUS ACIDOPHILUS TAB PO SCH ×3 (09:14→17:33)
[2017-01-17] MEDS: BUMETANIDE INJ 1 MG/4 ML VIAL IV PUSH SCH ×2 (09:15→21:31)
[2017-01-17] MEDS: SODIUM CHLORIDE 0.9% FLUSH 10 ML FLUSH IV FLUSH SCH ×2 (09:16→21:30)
[2017-01-17] MEDS: BACITRACIN OINT 0.9 GM PKT TOPICAL SCH (09:16)
--- NOTE | 2017-01-17 15:13 | HHI.GIFU ---
Subjective Remarks Tx to room 1405. Doing well. Tolerating diet. No n/v. No hematemesis. No abdominal pain. (Fabby Lo) Objective Vitals I&O Vital Signs Date Time Temp Pulse Resp B/P (MAP) Pulse Ox O2 Delivery O2 Flow Rate FiO2 01/17/17 10:45 97.4 66 20 118/69 (85) 98 01/17/17 08:12 98.2 69 18 118/76 (90) 98 01/17/17 06:00 58 01/17/17 05:00 62 01/17/17 04:33 97.4 75 24 123/72 (89) 98 01/17/17 04:00 75 01/17/17 03:00 68 01/17/17 02:00 68 01/17/17 01:00 62 01/17/17 00:00 68 01/16/17 23:18 97.7 72 24 115/68 (84) 98 01/16/17 23:00 62 01/16/17 22:00 64 01/16/17 21:00 70 01/16/17 20:00 72 01/16/17 19:22 98.0 69 24 140/88 (105) 98 01/16/17 19:00 72 01/16/17 18:00 75 01/16/17 17:00 74 01/16/17 16:54 98 21 01/16/17 16:01 72 I/O 01/16/17 01/16/17 01/16/17 01/17/17 01/17/17 01/17/17 07:00 15:00 23:00 07:00 15:00 23:00 Intake Total 240 ml 480 ml 720 ml Output Total 500 ml 625 ml 600 ml Balance -260 ml -145 ml 120 ml Intake Oral 240 ml 480 ml 720 ml Output Urine Total 500 ml 625 ml 600 ml # Bowel Movements 4 1 Laboratory Laboratory Tests Test 01/17/17 05:08 Blood Urea Nitrogen 124 Creatinine 3.74 Random Glucose 205 Calcium Level 7.6 Sodium Level 134 Potassium Level 4.3 Chloride Level 93 Carbon Dioxide Level 32.2 Anion Gap 9 Estimat Glomerular Filtration Rate 16 Date/Time Source Procedure Growth Status 01/09/17 20:55 Blood Peripheral Aerobic Blood Culture - Final NO GROWTH IN 5 DAYS Complete 01/09/17 20:55 Blood Peripheral Anaerobic Blood Culture - Final NO GROWTH IN 5 DAYS Complete 01/09/17 16:15 Urine Random Urine Urine Culture - Final Proteus Mirabilis Staphylococcus Aureus Complete Imaging Last Impressions Gastric Emptying Nuclear Medicine 01/14/17 0000 Signed Impressions: Service Date/Time: Saturday, January 14, 2017 11:18 - CONCLUSION: 1. Markedly prolonged gastric emptying with no response to Reglan Kenji Calderon MD Abdomen X-Ray 01/12/17 0000 Signed Impressions: Service Date/Time: Thursday, January 12, 2017 10:07 - CONCLUSION: 1. No acute abdominal abnormality is identified. 2. Severe atherosclerotic disease. Storm Allen MD Renal Ultrasound 01/11/17 0000 Signed Impressions: Service Date/Time: Wednesday, January 11, 2017 23:22 - CONCLUSION: No evidence of hydronephrosis. 2.8 cm left renal cyst. Clemente Matute MD Chest X-Ray 01/11/17 0000 Signed Impressions: Service Date/Time: Wednesday, January 11, 2017 08:46 - CONCLUSION: Mild improvement vascularity CHF Mike Scott MD Lower Extremity Ultrasound 01/10/17 0000 Signed Impressions: Service Date/Time: December 08:44 - CONCLUSION: 1. Negative left lower extremity DVT study. A Clay's cyst measuring 2.5 x 4.7 x 1 cm. Carlitos Corona MD Toe X-Ray 01/09/17 0000 Signed Impressions: Service Date/Time: Monday, January 09, 2017 17:40 - CONCLUSION: Soft tissue swelling third digit without bony destruction. Wilfredo Maddox MD FACR Physical Exam HEENT: Normocephalic. CHEST: Coarse CARDIAC: Irregular rhythm. ABDOMEN: Soft, obese, nondistended. BSx4 EXTREMITIES: No clubbing, cyanosis, + BLE pedal edema. SKIN: Normal; no rash; no jaundice. IT FIELD TECHNICIAN: Somnolent (Fabby Lo) Assessment and Plan Plan ASSESSMENT: - Upper GIB, Hematemesis. Recent STEMI, s/p Bare metal stent (12/21). Discharged home on Brilinta, ASA, Prednisone. Reports a lot of "stomach issues" since he went home and has been taking Maalox. Started vomiting dark red blood (large amount)- multiple episodes for 2-3 hours. Was having epigastric pain radiating up his esophagus, and a dull ache LUQ--- > epigastric area. Denies any hx of PUD. Brilinta and ASA on hold. EGD 01/11/17--Large gastric residuals and gastritis. There is a small concern for possible small bowel obstruction although the residual could also be related to gastroparesis found large gastric residues. PPI. No further bleeding. HH stable 10.3/32.2. Okay to resume anticoagulation from GI standpoint. - Gastroparesis. GES (01/14/17)---> Markedly prolonged gastric emptying with no response to Reglan. Having some constipation. Miralax. Trial of bethanechol. Improved. No nausea, tolerating diet. - Anemia, acute blood loss. HH stable 10.3/32.2. - Diarrhea, improved. One stool today. - Abdominal pain, n/v, reflux. Small concern for possible sbo vs. gastroparesis. KUB (01/12/17)---> No acute abdominal abnormality is identified, severe atherosclerotic disease. GES with gastroparesis Has not had bowel movement in 3 days. Miralax. Trial of bethanechol IMPROVED. - CHF, CAD with recent STEMI, Atrial fibrillation. S/P cardiac catheterization ( 12/21/16)--acute thrombotic occlusion of the mid and distal left anterior descending coronary artery, successful rheolytic thrombectomy of the left anterior descending coronary artery, successful percutaneous intervention with bare metal stents to the mid and distal left anterior descending coronary artery. He was discharged on Aspirin and Brilinta. Cardiology following, feels that his elevated troponin are secondary to his recent FL 3 weeks ago and some demand mediated response to his congestive heart failure. - COPD Exacerbation, Bronchitis. Steroids, Abx, Nebs per attending. - Acute on CKD, per renal. - DM, HTN, Hyperlipidemia, LLE wound per attending. PLAN: - Soft diet - Bethanechol - Protonix 40mg po BID - Miralax 17gram po daily - Okay to resume anticoagulation from GI standpoint - GI will sign off, please reconsult as needed - Patient seen and examined by Dr. Purcell and myself and this note is written on his behalf (Fabby Lo) Plan Patient was seen and examined, agree with above note, doing well, we will follow up as an outpatient, okay to be discharged home from GI standpoint (Ra Purcell MD) Fabby Lo Jan 17, 2017 15:13 Ra Purcell MD Jan 17, 2017 16:08
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
[2017-01-17] MEDS ORDERED: INSULIN HUMAN NPH 1,000 UNITS/10 ML VIAL SQ SCH (21:00)
[2017-01-17] MEDS: TICAGRELOR 90 MG TAB PO SCH (21:31)
[2017-01-17] MEDS: GABAPENTIN 400 MG CAP PO SCH (21:31)
[2017-01-17] MEDS: ATORVASTATIN 40 MG TAB PO SCH (21:32)
[2017-01-18] VITALS (7 sets, daily range): BP systolic 116–132; BP diastolic 60–78; PULSE 56–76; RESP 18–20; TEMP 97.3–98; O2SAT 94–98
[2017-01-18] MEDS: hydrALAZINE HCL 50 MG TAB PO SCH ×3 (06:40→21:34)
[2017-01-18] MEDS: ISOSORBIDE MONONITRATE 60 MG TAB PO SCH (06:40)
[2017-01-18] MEDS: GABAPENTIN 300 MG CAP PO SCH (06:40)
[2017-01-18] MEDS: BETHANECHOL CHL 25 MG TAB PO SCH ×3 (06:40→21:34)
[2017-01-18] MEDS: PILL SPLITTER OTHER PRN (06:40)
[2017-01-18 07:48] LABS: AUTOMATED NEUTROPHIL # 8.1 TH/MM3 (1.8-7.7); EOSINOPHIL # 0.1 TH/MM3 (0-0.4); HEMATOCRIT 29.4 % (39.0-51.0); HEMO FLAGS DIFF FINAL; LYMPH % 3.4 % (9.0-44.0); LYMPHOCYTE # 0.3 TH/MM3 (1.0-4.8); MEAN CELL VOLUME 86.2 FL (80.0-100.0); MEAN CORPUSCULAR HEMOGLOBIN 28.3 PG (27.0-34.0); MEAN CORPUSCULAR HGB CONC 32.9 % (32.0-36.0); MONO % 12.2 % (0.0-8.0); NEUT % 83.4 % (16.0-70.0); PLATELET COUNT 150 TH/MM3 (150-450); RED BLOOD COUNT 3.42 MIL/MM3 (4.50-5.90); RED CELL DISTRIBUTION WIDTH 16.3 % (11.6-17.2); WHITE BLOOD COUNT 9.7 TH/MM3 (4.0-11.0)
[2017-01-18 08:18] LABS: BICARBONATE 35.3 MEQ/L (21.0-32.0); POTASSIUM 3.9 MEQ/L (3.5-5.1)
--- NOTE | 2017-01-18 08:37 | PD.CARD.PN ---
Subjective Subjective Remarks Complains of diarrhea. No chest pain or dyspnea. Objective Vital Signs / I&O Vital Signs Date Time Temp Pulse Resp B/P (MAP) Pulse Ox O2 Delivery O2 Flow Rate FiO2 01/18/17 04:00 98.0 64 20 132/73 (92) 96 01/18/17 00:00 97.5 64 20 130/78 (95) 96 01/17/17 21:03 Nasal Cannula 2.00 01/17/17 20:00 97.6 59 22 122/77 (92) 96 01/17/17 19:30 73 01/17/17 16:00 97.4 61 18 126/67 (86) 99 01/17/17 10:45 97.4 66 20 118/69 (85) 98 I/O 01/17/17 01/17/17 01/17/17 01/18/17 01/18/17 01/18/17 07:00 15:00 23:00 07:00 15:00 23:00 Intake Total 720 ml 240 ml 480 ml Output Total 600 ml 500 ml 750 ml Balance 120 ml -260 ml -270 ml Intake Oral 720 ml 240 ml 480 ml Output Urine Total 600 ml 500 ml 750 ml # Bowel Movements 1 4 Physical Exam Lungs clear irregular rhythm @ 80 Abd soft Laboratory Laboratory Tests Test 01/18/17 06:18 White Blood Count 9.7 TH/MM3 Red Blood Count 3.42 MIL/MM3 Hemoglobin 9.7 GM/DL Hematocrit 29.4 % Mean Corpuscular Volume 86.2 FL Mean Corpuscular Hemoglobin 28.3 PG Mean Corpuscular Hemoglobin Concent 32.9 % Red Cell Distribution Width 16.3 % Platelet Count 150 TH/MM3 Mean Platelet Volume 9.0 FL Neutrophils (%) (Auto) 83.4 % Lymphocytes (%) (Auto) 3.4 % Monocytes (%) (Auto) 12.2 % Eosinophils (%) (Auto) 1.0 % Basophils (%) (Auto) 0.0 % Neutrophils # (Auto) 8.1 TH/MM3 Lymphocytes # (Auto) 0.3 TH/MM3 Monocytes # (Auto) 1.2 TH/MM3 Eosinophils # (Auto) 0.1 TH/MM3 Basophils # (Auto) 0.0 TH/MM3 CBC Comment DIFF FINAL Differential Comment Blood Urea Nitrogen 131 MG/DL Creatinine 3.36 MG/DL Random Glucose 172 MG/DL Calcium Level 7.5 MG/DL Sodium Level 135 MEQ/L Potassium Level 3.9 MEQ/L Chloride Level 93 MEQ/L Carbon Dioxide Level 35.3 MEQ/L Anion Gap 7 MEQ/L Estimat Glomerular Filtration Rate 18 ML/MIN Assessment and Plan Problem List: (1) Atrial fibrillation ICD Codes: I48.91 - Atrial fibrillation Status: Chronic Plan: A fib well controlled. No further V tach. Continue metoprolol (2) Congestive heart failure ICD Codes: I50.9 - Congestive heart failure Status: Acute Assessment and Plan CHF clinically resolved. Will d/c lasix and check BMp in AM. Recheck Cxr and BNP A fib rate controlled on metoprolol will continue Suggest GI consult- will hold breakfast this morning Problem Qualifiers (1) Congestive heart failure: Qualified Codes: I50.23 - Acute on chronic systolic (congestive) heart failure Kenji Rodríguez MD Jan 18, 2017 08:37
[2017-01-18] MEDS: SODIUM CHLORIDE 0.9% FLUSH 10 ML FLUSH IV FLUSH SCH ×2 (09:00→21:33)
[2017-01-18] MEDS: BUDESONIDE-FORMOTEROL 160/4.5 MCG INHALER INH SCH ×2 (09:00→21:00)
[2017-01-18] MEDS: BACITRACIN OINT 0.9 GM PKT TOPICAL SCH (09:00)
[2017-01-18] MEDS: BUMETANIDE INJ 1 MG/4 ML VIAL IV PUSH SCH ×2 (10:14→21:33)
[2017-01-18] MEDS: ASPIRIN 81 MG CHEW TAB PO SCH (10:15)
[2017-01-18] MEDS: METOPROLOL TARTRATE 50 MG TAB PO SCH ×2 (10:15→21:34)
[2017-01-18] MEDS: PANTOPRAZOLE SOD 40 MG DELAYED RELEASE TAB PO SCH ×2 (10:15→21:33)
[2017-01-18] MEDS: LACTOBACILLUS ACIDOPHILUS TAB PO SCH ×3 (10:15→17:44)
[2017-01-18] MEDS: predniSONE 20 MG TAB PO SCH (10:15)
[2017-01-18] MEDS: DOCUSATE SODIUM 50 MG/SENNA 8.6 MG TAB PO SCH ×2 (10:16→21:00)
[2017-01-18] MEDS: TICAGRELOR 90 MG TAB PO SCH ×2 (10:16→21:36)
[2017-01-18] MEDS: guaiFENesin E.R. 600 MG TAB PO SCH ×2 (10:16→21:33)
[2017-01-18] MEDS: POLYETHYLENE GLYCOL 17 GM PKG PO SCH (10:16)
[2017-01-18] MEDS: INSULIN ASPART SUPPLEMENTAL SCALE SQ SCH ×4 (10:18→21:00)
[2017-01-18] MEDS: CALCIUM ACETATE 667 MG CAP PO SCH ×3 (10:18→17:44)
--- NOTE | 2017-01-18 10:20 | HHI.PR ---
Subjective Remarks in no distress. denies pain. no nausea or emesis. good urine output. d/w the RN. Objective Vitals Vital Signs Date Time Temp Pulse Resp B/P (MAP) Pulse Ox O2 Delivery O2 Flow Rate FiO2 01/18/17 08:00 97.8 59 20 121/62 (81) 98 01/18/17 04:00 98.0 64 20 132/73 (92) 96 01/18/17 00:00 97.5 64 20 130/78 (95) 96 01/17/17 21:03 Nasal Cannula 2.00 01/17/17 20:00 97.6 59 22 122/77 (92) 96 01/17/17 19:30 73 01/17/17 16:00 97.4 61 18 126/67 (86) 99 01/17/17 10:45 97.4 66 20 118/69 (85) 98 I/O 01/17/17 01/17/17 01/17/17 01/18/17 01/18/17 01/18/17 07:00 15:00 23:00 07:00 15:00 23:00 Intake Total 720 ml 240 ml 480 ml Output Total 600 ml 500 ml 750 ml Balance 120 ml -260 ml -270 ml Intake Oral 720 ml 240 ml 480 ml Output Urine Total 600 ml 500 ml 750 ml # Bowel Movements 1 4 Result Diagram: 01/18/1718 01/18/17 0618 Imaging Last Impressions Gastric Emptying Nuclear Medicine 01/14/17 0000 Signed Impressions: Service Date/Time: Saturday, January 14, 2017 11:18 - CONCLUSION: 1. Markedly prolonged gastric emptying with no response to Reglan Kenji Calderon MD Abdomen X-Ray 01/12/17 0000 Signed Impressions: Service Date/Time: Thursday, January 12, 2017 10:07 - CONCLUSION: 1. No acute abdominal abnormality is identified. 2. Severe atherosclerotic disease. Storm Allen MD Renal Ultrasound 01/11/17 0000 Signed Impressions: Service Date/Time: Wednesday, January 11, 2017 23:22 - CONCLUSION: No evidence of hydronephrosis. 2.8 cm left renal cyst. Clemente Matute MD Chest X-Ray 01/11/17 0000 Signed Impressions: Service Date/Time: Wednesday, January 11, 2017 08:46 - CONCLUSION: Mild improvement vascularity CHF Mike Scott MD Lower Extremity Ultrasound 01/10/17 0000 Signed Impressions: Service Date/Time: December 08:44 - CONCLUSION: 1. Negative left lower extremity DVT study. A Clay's cyst measuring 2.5 x 4.7 x 1 cm. Carlitos Corona MD Toe X-Ray 01/09/17 0000 Signed Impressions: Service Date/Time: Monday, January 09, 2017 17:40 - CONCLUSION: Soft tissue swelling third digit without bony destruction. Wilfredo Maddox MD FACR Objective Remarks GENERAL: in no acute distress CARDIOVASCULAR; tachycardic with irregular rhythm without murmurs, gallops, or rubs. RESPIRATORY: Clear to auscultation. Breath sounds equal bilaterally. No wheezes , rales, or rhonchi. GASTROINTESTINAL: Abdomen soft, mild generalized tenderness and distended. Normal, active bowel sounds MUSCULOSKELETAL: erythema and swelling of the left third toe.bilateral pedal edema. NEURO: Alert & Oriented x4 to person, place, time, situation. Moves all ext x4 skin; some erythema over the left leg along with superficial ulcer on the left weeks Procedures EGD Medications and IVs Current Medications Methylprednisolone Sodium Succinate (SoluMEDROL INJ) 125 mg ONCE ONCE IV PUSH Last administered on 01/09/17 17:08; Start 01/09/17 at 16:00; Stop 01/09/17 at 16:01; Status DC Albuterol/ Ipratropium (Duoneb Neb) 1 ampule Q15M INH Last administered on 01/09 16:27; Start 01/09/17 at 16:00; Stop 01/09/17 at 16:16; Status DC Furosemide (Lasix Inj) 40 mg ONCE ONCE IV PUSH Last administered on 01/09/17 18:55; Start 01/09/17 at 18:15; Stop 01/09/17 at 18:16; Status DC Trimethoprim/ Sulfamethoxazole (Bactrim Ds 800-160 Mg) 1 tab ONCE ONCE PO Last administered on 01/09/17 20:53; Start 01/09/17 at 20:00; Stop 01/09/17 at 20:01; Status DC Dextrose (D50w (Vial) Inj) 50 ml UNSCH PRN IV PUSH HYPOGLYCEMIA-SEE COMMENTS; Start 01/09/17 at 18:30 Glucagon (Glucagon Inj) 1 mg UNSCH PRN OTHER HYPOGLYCEMIA-SEE COMMENTS; Start 01/09/17 at 18:30 Insulin Aspart (NovoLOG SUPPLEMENTAL SCALE) 1 ACHS SLIDING SCALE SQ Last administered on 01/17/17 21:00; Start 01/09/17 at 21:00 Sodium Chloride (NS Flush) 2 ml UNSCH PRN IV FLUSH FLUSH AFTER USING IV ACCESS ; Start 01/09/17 at 18:30; Stop 01/09/17 at 19:26; Status DC Sodium Chloride (NS Flush) 2 ml BID IV FLUSH ; Start 01/09/17 at 21:00; Stop at 21:00; Status DC Acetaminophen (Tylenol) 650 mg Q4H PRN PO TEMP > 100.4; Start 01/09/17 at 18:30 Ondansetron HCl (Zofran Inj) 4 mg Q6H PRN IVP NAUSEA OR VOMITING Last administered on 01/12/17 22:36; Start 01/09/17 at 18:30 Prochlorperazine (Compazine Supp) 25 mg Q12H PRN RECTAL NAUSEA OR VOMITING; Start 01/09/17 at 18:30 Acetaminophen (Tylenol) 650 mg Q6H PRN PO PAIN SCALE 1 TO 2; Start 01/09/17 at 18:30 Oxycodone/ Acetaminophen (Percocet 5-325 Mg) 1 tab Q6H PRN PO PAIN SCALE 3 TO 5; Start 01/09/17 at 18:30 Oxycodone/ Acetaminophen (Percocet 10-325 Mg) 1 tab Q6H PRN PO PAIN SCALE 6 TO 10; Start 01/09/17 at 18:30 Morphine Sulfate (Morphine Inj) 2 mg Q3H PRN IV PUSH Pain 3-5; if unable to take PO; Start 01/09/17 at 18:30 Morphine Sulfate (Morphine Inj) 4 mg Q3H PRN IV PUSH Pain 6-10;if unable to take PO; Start 01/09/17 at 18:30 Naloxone HCl (Narcan Inj) 0.4 mg UNSCH PRN IV PUSH SEE LABEL COMMENTS; Start at 18:30 Senna/Docusate Sodium (Ofe-Colace) 1 tab BID PO Last administered on 21:00; Start 01/09/17 at 21:00 Magnesium Hydroxide (Milk Of Magnesia Liq) 30 ml Q12H PRN PO MILD - MODERATE CONSTIPATION; Start 01/09/17 at 18:30 Sennosides (Senokot) 17.2 mg Q12H PRN PO MODERATE - SEVERE CONSTIPATION; Start 01/09/17 at 18:30 Bisacodyl (Dulcolax Supp) 10 mg DAILY PRN RECTAL SEVERE CONSITIPATION; Start at 18:30 Lactulose (Lactulose Liq) 30 ml DAILY PRN PO SEVERE CONSITIPATION; Start at 18:30 Furosemide (Lasix Inj) 40 mg Q12H IV Last administered on 01/10/17 21:56; Start 01/09/17 at 21:00; Stop 01/11/17 at 07:58; Status DC Vancomycin HCl 1000 mg/Sodium Chloride 250 ml @ 250 mls/hr Q12H IV ; Start at 18:30; Stop 01/09/17 at 20:22; Status DC Cefepime HCl 1000 mg/Sodium Chloride 100 ml @ 200 mls/hr Q8H IV Last administered on 01/11/17 04:27; Start 01/09/17 at 20:00; Stop 01/11/17 at 08:53 ; Status DC Pharmacy Profile Note 0 ml @ 0 mls/hr UNSCH OTHER ; Start 01/09/17 at 18:30; Stop 01/11/17 at 08:53; Status DC Albuterol/ Ipratropium (Duoneb Neb) 1 ampule Q4HR NEB INH Last administered on 01/13/17 15:42; Start 01/09/17 at 20:00; Stop 01/13/17 at 19:59; Status DC Albuterol Sulfate (Albuterol Neb) 2.5 mg Q2HR NEB PRN INH SHORTNESS OF BREATH; Start 01/09/17 at 18:45 Budesonide/ Formoterol Fumarate (Symbicort 160-4.5 Inh) 2 puff Q12HR INH Last administered on 01/17/17 21:00; Start 01/09/17 at 21:00 Methylprednisolone Sodium Succinate (SoluMEDROL INJ) 60 mg Q12H IV PUSH Last administered on 01/11/17 21:38; Start 01/09/17 at 21:00; Stop 01/12/17 at 08:13 ; Status DC Guaifenesin (Mucinex Er) 600 mg BID PO Last administered on 01/17/17 21:32; Start 01/09/17 at 21:00 Aspirin (Aspirin Chew) 81 mg DAILY PO Last administered on 01/10/17 08:31; Start 01/09/17 at 20:00; Status Future hold Atorvastatin Calcium (Lipitor) 40 mg HS PO Last administered on 01/17/17 21:32 ; Start 01/09/17 at 21:00 Gabapentin (Neurontin) 300 mg DAILY@0600 PO Last administered on 01/18/17 06: 40; Start 01/10/17 at 06:00 Hydralazine HCl (Apresoline) 50 mg Q8HR PO Last administered on 01/18/17 06:40 ; Start 01/09/17 at 22:00 Insulin Human NPH (NovoLIN N INJ) 22 units HS SQ Last administered on 20:19; Start 01/09/17 at 21:00; Stop 01/16/17 at 11:31; Status DC Isosorbide Mononitrate (Imdur) 60 mg DAILY@07 PO Last administered on 06:40; Start 01/10/17 at 07:00 Lactobacillus Acidophilus (Lactinex) 1 tab TIDAC PO Last administered on 17:33; Start 01/10/17 at 08:00 Ticagrelor (Brilinta) 90 mg BID PO Last administered on 01/17/17 21:31; Start 01/09/17 at 21:00; Status Future hold Tiotropium [place] (Spiriva Inh) 18 mcg DAILY INH ; Start 01/10/17 at 09:00; Stop 01/10/17 at 09:00; Status DC Pantoprazole Sodium (Protonix) 20 mg DAILY PO Last administered on 01/10/17 08 :31; Start 01/10/17 at 09:00; Stop 01/11/17 at 00:52; Status DC Gabapentin (Neurontin) 400 mg HS PO Last administered on 01/17/17 21:31; Start 01/09/17 at 21:00 Nitroglycerin (Nitrostat Sl) 0.4 mg Q5M PRN SL CHEST PAIN; Start 01/09/17 at 18 :45 Heparin Sodium/ Dextrose 250 ml @ 16.8 mls/hr TITRATE PRN IV Coagulation management Last administered on 01/10/17 16:40; Start 01/09/17 at 19:00; Status Future Hold Sodium Chloride (NS Flush) 2 ml BID IV FLUSH Last administered on 01/17/17 21: 30; Start 01/09/17 at 21:00 Sodium Chloride (NS Flush) 2 ml UNSCH PRN IV FLUSH FLUSH AFTER USING IV ACCESS ; Start 01/09/17 at 19:00 Alprazolam (Xanax) 0.25 mg Q8H PRN PO ANXIETY Last administered on 01/12/17 23 :39; Start 01/09/17 at 19:00 Vancomycin HCl 1500 mg/Sodium Chloride 515 ml @ 257.5 mls/ hr Q24H IV ; Start 01/09/17 at 22:00; Stop 01/10/17 at 10:03; Status DC Miscellaneous Information SPECIFIC LAB TO BE DRAWN:VANCO TROUGH DATE TO BE DR... ONCE ONCE .XX ; Start 01/12/17 at 21:45; Stop 01/12/17 at 21:46; Status Cancel Furosemide (Lasix Inj) 40 mg ONCE ONCE IV PUSH Last administered on 01/10/17 01:36; Start 01/10/17 at 01:30; Stop 01/10/17 at 01:31; Status DC Metoprolol Tartrate (Lopressor) 50 mg Q12HR PO Last administered on 01/15/17 21:45; Start 01/10/17 at 09:00; Stop 01/16/17 at 09:01; Status DC Vancomycin HCl 1500 mg/Sodium Chloride 515 ml @ 257.5 mls/ hr ONCE ONCE IV Last administered on 01/10/17 11:00; Start 01/10/17 at 11:00; Stop 01/10/17 at 12:59; Status DC Al Hydrox/Mg Hydrox/Simethicone (Mag-Al Plus Susp Liq) 30 ml ONCE ONCE PO Last administered on 01/10/17 22:45; Start 01/10/17 at 22:45; Stop 01/10/17 at 22:46; Status DC Pantoprazole Sodium 80 mg/ Sodium Chloride 100 ml @ 10 mls/hr Q10H IV Last administered on 01/14/17 00:39; Start 01/11/17 at 02:00; Stop 01/14/17 at 09:02 ; Status DC Pantoprazole Sodium 80 mg/ Sodium Chloride 35 ml @ 420 mls/hr Q5M ONCE IV Last administered on 01/11/17 01:49; Start 01/11/17 at 01:49; Stop 01/11/17 at 01:53; Status DC Propofol (Diprivan 200 Mg/20 ml Inj) 400 mg STK-MED ONCE .ROUTE ; Start at 12:10; Stop 01/11/17 at 12:11; Status DC Lactated Ringer's 1,000 ml @ 30 mls/hr Q24H ONCE IV Last administered on 12:19; Start 01/11/17 at 13:00; Stop 01/12/17 at 12:59; Status DC Miscellaneous Information ALL NURSING DEPARTME... UNSCH PRN .XX SEE LABEL COMMENTS; Start 01/11/17 at 12:56; Stop 01/12/17 at 12:55; Status DC Bumetanide (Bumex Inj) 2 mg Q8H IV PUSH Last administered on 01/15/17 12:52; Start 01/11/17 at 20:00; Stop 01/15/17 at 14:09; Status DC Chlorothiazide Sodium (Diuril Inj) 500 mg ONCE ONCE IV Last administered on 21:57; Start 01/11/17 at 20:00; Stop 01/11/17 at 21:04; Status DC Bacitracin (Bacitracin Oint Packet) 0.9 gm DAILY TOPICAL Last administered on 09:16; Start 01/12/17 at 09:00 Methylprednisolone Sodium Succinate (SoluMEDROL INJ) 40 mg Q12H IV PUSH Last administered on 01/12/17 22:41; Start 01/12/17 at 09:00; Stop 01/13/17 at 08:26 ; Status DC Cefepime HCl 1000 mg/Sodium Chloride 100 ml @ 200 mls/hr DAILY IV Last administered on 01/12/17 09:10; Start 01/12/17 at 09:00; Stop 01/13/17 at 08:26 ; Status DC Ergocalciferol (Drisdol) 50,000 units Q7D PO Last administered on 01/12/17 16: 00; Start 01/12/17 at 16:00 Pantoprazole Sodium (Protonix Inj) 40 mg Q24H IV PUSH ; Start 01/12/17 at 16:45 ; Status UNV Methylprednisolone Sodium Succinate (SoluMEDROL INJ) 20 mg Q12H IV PUSH Last administered on 01/16/17 21:00; Start 01/13/17 at 09:00; Stop 01/17/17 at 08:07 ; Status DC Sodium Polystyrene Sulfonate (Kayexalate Liq) 15 gm ONCE ONCE PO Last administered on 01/13/17 11:45; Start 01/13/17 at 11:00; Stop 01/13/17 at 11:01 ; Status DC Sodium Polystyrene Sulfonate (Kayexalate Liq) 15 gm ONCE ONCE PO Last administered on 01/13/17 11:45; Start 01/13/17 at 11:15; Stop 01/13/17 at 11:26 ; Status DC Chlorothiazide Sodium (Diuril Inj) 500 mg ONCE ONCE IV Last administered on 11:15; Start 01/13/17 at 11:15; Stop 01/13/17 at 11:26; Status DC Dextrose (D50w (Syr) Inj) 50 ml STK-MED ONCE .ROUTE Last administered on 08:17; Start 01/14/17 at 08:07; Stop 01/14/17 at 08:08; Status DC Pantoprazole Sodium (Protonix) 40 mg Q12HR PO Last administered on 01/17/17 21 :32; Start 01/14/17 at 09:00 Polyethylene Glycol (Miralax) 17 gm DAILY PO ; Start 01/14/17 at 09:00 Metoclopramide HCl (Reglan Inj) 10 mg STK-MED ONCE .ROUTE Last administered on 01/14/17 13:01; Start 01/14/17 at 13:01; Stop 01/14/17 at 13:02; Status DC Lidocaine HCl (Xylocaine-Mpf 1% Inj) 5 ml STK-MED ONCE OTHER ; Start 01/11/17 at 12:00; Stop 01/14/17 at 16:06; Status DC Succinylcholine Chloride (Quelicin Inj) 100 mg STK-MED ONCE IV PUSH ; Start at 12:00; Stop 01/14/17 at 16:06; Status DC Ondansetron HCl (Zofran Inj) 4 mg STK-MED ONCE IV PUSH ; Start 01/11/17 at 12:00 ; Stop 01/14/17 at 16:06; Status DC Fentanyl Citrate (fentaNYL INJ) 100 mcg STK-MED ONCE IV ; Start 01/11/17 at 12: 00; Stop 01/14/17 at 16:06; Status DC Bethanechol Chloride (Urecholine) 12.5 mg Q8HR PO Last administered on 06:40; Start 01/15/17 at 14:00 Miscellaneous (Pill Splitter) 1 ea UNSCH PRN OTHER SEE LABEL COMMENTS; Start at 14:15 Bumetanide (Bumex Inj) 2 mg Q12HR IV PUSH Last administered on 01/16/17 10:16 ; Start 01/16/17 at 09:00; Stop 01/16/17 at 18:23; Status DC Calcium Acetate (Phoslo) 667 mg TIDPC PO Last administered on 01/17/17 17:33; Start 01/15/17 at 18:30 Metoprolol Tartrate (Lopressor) 75 mg Q12HR PO Last administered on 01/17/17 21:32; Start 01/16/17 at 10:00 Miscellaneous (Pill Splitter) 1 ea UNSCH PRN OTHER SEE LABEL COMMENTS Last administered on 01/18/17 06:40; Start 01/16/17 at 09:15 Insulin Human NPH (NovoLIN N INJ) 10 units HS SQ Last administered on 21:00; Start 01/16/17 at 21:00; Stop 01/17/17 at 08:08; Status DC Bumetanide (Bumex Inj) 1 mg Q12HR IV PUSH Last administered on 01/17/17 09:15 ; Start 01/16/17 at 21:00; Stop 01/17/17 at 17:53; Status DC Insulin Human NPH (NovoLIN N INJ) 14 units HS SQ Last administered on 21:34; Start 01/17/17 at 21:00 Prednisone (Deltasone) 40 mg DAILY PO Last administered on 01/17/17 09:14; Start 01/17/17 at 09:00 Bumetanide (Bumex Inj) 2 mg Q12HR IV PUSH Last administered on 01/17/17 21:31 ; Start 01/17/17 at 21:00 A/P Assessment and Plan A/P Questionable CHF exacerbation COPD exacerbation - secondary to medication noncompliance - echocardiogram with EF 65% - started on Bumex - switched to po prednisone- will start to taper down soon. - continue neb treatment - Supplemental oxygen to maintain O2 sats above 92% - Continue home bronchodilators - Monitor respiratory status - IS - Strict I&Os - Salt and fluid restricted diet Chest pain with elevated troponin CAD s/p cardiac catheterization with implantation of bare metal stent 12/21/16 Atrial fibrillation -stopped heparin drip due to GI bleed - Continuous cardiac monitoring - Supplemental oxygen - resumed Brilinta and aspirin ( ok with GI) - Continue isosorbide - continue statin - continue with pain control -cardiology following. upper GI bleed delayed gastric emptying - s/p EGD; large gastric residual and gastritis - monitor H/H and transfuse as needed - continue protonix -trial of Bethanechol - GI follow- up appreciated and cleared for discharge with outpatient follow-up. acute kidney injury superimposed on chronic renal insufficiency --renal US with no hydronephrosis - started on Bumex -SPEP with no abnormal bands - will monitor the renal function closely -awaiting recovery -nephrology following. hyperkalemia; resolved. DM with hypoglycemic episode- with no recurrence now hyperglycemic - Accu-Chek - Insulin sliding scale - increase NPH -the blood sugar levels expected to improve as steroids being tapered off. -will monitor and adjust the regimen as needed. HTN HLD - Continue antihypertensive medications - resumed home statin therapy - Monitor BP Neuropathy - Resumed home gabapentin LLE wound with left third toe swelling and erythema - Wound care consult appreciated. - -blood cultures negative so far -podiatry consult appreciated; no need for antibiotics. -venous doppler of the left leg negative for DVT Incidental finding of 1 cm irregular nodule right upper lobe - CT chest 12/23/16 - Recommend follow-up CT at approximately 3, 9 and 24 months and or contrast enhanced CT, PET and/or biopsy Chronic indwelling Cortez with asymptomatic bacteriuria ; afebrile- likely contamination- will dc antibiotics. GI prophylaxis - PPI DVT prophylaxis -heparin was discontinued due to GI bleed. Discharge Planning when cleared by cardiology and nephrology- awaiting renal recovery. Bob Phillips MD Jan 18, 2017 10:20
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
[2017-01-18] MEDS ORDERED: POTASSIUM CHLORIDE 20 MEQ CONTROLLED RELEASE TAB PO ONE (14:00)
[2017-01-18] MEDS ORDERED: INSULIN HUMAN NPH 1,000 UNITS/10 ML VIAL SQ SCH (21:00)
[2017-01-18] MEDS: ATORVASTATIN 40 MG TAB PO SCH (21:33)
[2017-01-18] MEDS: GABAPENTIN 400 MG CAP PO SCH (21:34)
[2017-01-19] VITALS (8 sets, daily range): BP systolic 108–124; BP diastolic 63–76; PULSE 63–67; RESP 18–20; TEMP 97.1–97.9; O2SAT 94–99
[2017-01-19] MEDS: BETHANECHOL CHL 25 MG TAB PO SCH ×4 (05:57→21:17)
[2017-01-19] MEDS: PILL SPLITTER OTHER PRN (05:57)
[2017-01-19] MEDS: GABAPENTIN 300 MG CAP PO SCH (05:57)
[2017-01-19] MEDS: hydrALAZINE HCL 50 MG TAB PO SCH ×4 (05:57→21:17)
[2017-01-19] MEDS: ISOSORBIDE MONONITRATE 60 MG TAB PO SCH (05:57)
[2017-01-19] MEDS: INSULIN ASPART SUPPLEMENTAL SCALE SQ SCH ×4 (08:00→21:18)
[2017-01-19] MEDS: LACTOBACILLUS ACIDOPHILUS TAB PO SCH ×3 (08:41→18:26)
[2017-01-19] MEDS: BUDESONIDE-FORMOTEROL 160/4.5 MCG INHALER INH SCH ×2 (08:42→21:15)
[2017-01-19] MEDS: SODIUM CHLORIDE 0.9% FLUSH 10 ML FLUSH IV FLUSH SCH ×2 (08:43→21:15)
[2017-01-19] MEDS: BUMETANIDE INJ 1 MG/4 ML VIAL IV PUSH SCH ×2 (08:44→21:16)
[2017-01-19] MEDS: TICAGRELOR 90 MG TAB PO SCH ×2 (08:44→21:16)
[2017-01-19] MEDS: ASPIRIN 81 MG CHEW TAB PO SCH (08:44)
[2017-01-19] MEDS: predniSONE 20 MG TAB PO SCH (08:45)
[2017-01-19] MEDS: guaiFENesin E.R. 600 MG TAB PO SCH ×2 (08:45→21:16)
[2017-01-19] MEDS: DOCUSATE SODIUM 50 MG/SENNA 8.6 MG TAB PO SCH ×2 (08:45→21:16)
[2017-01-19] MEDS: PANTOPRAZOLE SOD 40 MG DELAYED RELEASE TAB PO SCH ×2 (08:46→21:16)
[2017-01-19] MEDS: CALCIUM ACETATE 667 MG CAP PO SCH ×3 (08:46→18:27)
[2017-01-19] MEDS: BACITRACIN OINT 0.9 GM PKT TOPICAL SCH (08:48)
[2017-01-19] MEDS: POLYETHYLENE GLYCOL 17 GM PKG PO SCH (08:49)
[2017-01-19] MEDS: METOPROLOL TARTRATE 50 MG TAB PO SCH ×2 (09:00→21:16)
[2017-01-19 10:00] LABS: BICARBONATE 32.3 MEQ/L (21.0-32.0); POTASSIUM 4.1 MEQ/L (3.5-5.1)
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
--- NOTE | 2017-01-19 12:10 | HHI.PR ---
Subjective Remarks in no acute distress. says that he's feeling a little better today. sob has improved. d/w the RN. Objective Vitals Vital Signs Date Time Temp Pulse Resp B/P (MAP) Pulse Ox O2 Delivery O2 Flow Rate FiO2 01/19/17 11:36 63 01/19/17 10:56 Nasal Cannula 2.00 01/19/17 08:00 97.3 65 20 111/63 (79) 96 01/19/17 04:00 97.6 67 20 124/69 (87) 94 01/19/17 00:00 97.6 65 20 124/76 (92) 99 01/18/17 21:43 Nasal Cannula 2.00 01/18/17 20:15 76 01/18/17 20:00 97.5 72 20 128/73 (91) 97 01/18/17 16:00 97.6 58 18 125/67 (86) 94 I/O 01/18/17 01/18/17 01/18/17 01/19/17 01/19/17 01/19/17 07:00 15:00 23:00 07:00 15:00 23:00 Intake Total 480 ml 480 ml 480 ml Output Total 750 ml 600 ml 850 ml Balance -270 ml -120 ml -370 ml Intake Oral 480 ml 480 ml 480 ml Output Urine Total 750 ml 600 ml 850 ml # Bowel Movements 4 2 Result Diagram: 01/18/17 0618 01/19/17 0900 Imaging Last Impressions Gastric Emptying Nuclear Medicine 01/14/17 0000 Signed Impressions: Service Date/Time: Saturday, January 14, 2017 11:18 - CONCLUSION: 1. Markedly prolonged gastric emptying with no response to Reglan Kenji Calderon MD Abdomen X-Ray 01/12/17 0000 Signed Impressions: Service Date/Time: Thursday, January 12, 2017 10:07 - CONCLUSION: 1. No acute abdominal abnormality is identified. 2. Severe atherosclerotic disease. Storm Allen MD Renal Ultrasound 01/11/17 0000 Signed Impressions: Service Date/Time: Wednesday, January 11, 2017 23:22 - CONCLUSION: No evidence of hydronephrosis. 2.8 cm left renal cyst. Clemente Matute MD Chest X-Ray 01/11/17 0000 Signed Impressions: Service Date/Time: Wednesday, January 11, 2017 08:46 - CONCLUSION: Mild improvement vascularity CHF Mike Scott MD Lower Extremity Ultrasound 01/10/17 0000 Signed Impressions: Service Date/Time: December 08:44 - CONCLUSION: 1. Negative left lower extremity DVT study. A Clay's cyst measuring 2.5 x 4.7 x 1 cm. Carlitos Corona MD Toe X-Ray 01/09/17 0000 Signed Impressions: Service Date/Time: Monday, January 09, 2017 17:40 - CONCLUSION: Soft tissue swelling third digit without bony destruction. Wilfredo Maddox MD FACR Objective Remarks GENERAL: in no acute distress CARDIOVASCULAR; tachycardic with irregular rhythm without murmurs, gallops, or rubs. RESPIRATORY: Clear to auscultation. Breath sounds equal bilaterally. No wheezes , rales, or rhonchi. GASTROINTESTINAL: Abdomen soft, mild generalized tenderness and distended. Normal, active bowel sounds MUSCULOSKELETAL: erythema and swelling of the left third toe.bilateral pedal edema. NEURO: Alert & Oriented x4 to person, place, time, situation. Moves all ext x4 skin; some erythema over the left leg along with superficial ulcer on the left weeks Procedures EGD Medications and IVs Current Medications Methylprednisolone Sodium Succinate (SoluMEDROL INJ) 125 mg ONCE ONCE IV PUSH Last administered on 01/09/17 17:08; Start 01/09/17 at 16:00; Stop 01/09/17 at 16:01; Status DC Albuterol/ Ipratropium (Duoneb Neb) 1 ampule Q15M INH Last administered on 01/09 16:27; Start 01/09/17 at 16:00; Stop 01/09/17 at 16:16; Status DC Furosemide (Lasix Inj) 40 mg ONCE ONCE IV PUSH Last administered on 01/09/17 18:55; Start 01/09/17 at 18:15; Stop 01/09/17 at 18:16; Status DC Trimethoprim/ Sulfamethoxazole (Bactrim Ds 800-160 Mg) 1 tab ONCE ONCE PO Last administered on 01/09/17 20:53; Start 01/09/17 at 20:00; Stop 01/09/17 at 20:01; Status DC Dextrose (D50w (Vial) Inj) 50 ml UNSCH PRN IV PUSH HYPOGLYCEMIA-SEE COMMENTS; Start 01/09/17 at 18:30 Glucagon (Glucagon Inj) 1 mg UNSCH PRN OTHER HYPOGLYCEMIA-SEE COMMENTS; Start 01/09/17 at 18:30 Insulin Aspart (NovoLOG SUPPLEMENTAL SCALE) 1 ACHS SLIDING SCALE SQ Last administered on 01/18/17 21:00; Start 01/09/17 at 21:00 Sodium Chloride (NS Flush) 2 ml UNSCH PRN IV FLUSH FLUSH AFTER USING IV ACCESS ; Start 01/09/17 at 18:30; Stop 01/09/17 at 19:26; Status DC Sodium Chloride (NS Flush) 2 ml BID IV FLUSH ; Start 01/09/17 at 21:00; Stop at 21:00; Status DC Acetaminophen (Tylenol) 650 mg Q4H PRN PO TEMP > 100.4; Start 01/09/17 at 18:30 Ondansetron HCl (Zofran Inj) 4 mg Q6H PRN IVP NAUSEA OR VOMITING Last administered on 01/12/17 22:36; Start 01/09/17 at 18:30 Prochlorperazine (Compazine Supp) 25 mg Q12H PRN RECTAL NAUSEA OR VOMITING; Start 01/09/17 at 18:30 Acetaminophen (Tylenol) 650 mg Q6H PRN PO PAIN SCALE 1 TO 2; Start 01/09/17 at 18:30 Oxycodone/ Acetaminophen (Percocet 5-325 Mg) 1 tab Q6H PRN PO PAIN SCALE 3 TO 5; Start 01/09/17 at 18:30 Oxycodone/ Acetaminophen (Percocet 10-325 Mg) 1 tab Q6H PRN PO PAIN SCALE 6 TO 10; Start 01/09/17 at 18:30 Morphine Sulfate (Morphine Inj) 2 mg Q3H PRN IV PUSH Pain 3-5; if unable to take PO; Start 01/09/17 at 18:30 Morphine Sulfate (Morphine Inj) 4 mg Q3H PRN IV PUSH Pain 6-10;if unable to take PO; Start 01/09/17 at 18:30 Naloxone HCl (Narcan Inj) 0.4 mg UNSCH PRN IV PUSH SEE LABEL COMMENTS; Start at 18:30 Senna/Docusate Sodium (Ofe-Colace) 1 tab BID PO Last administered on 10:16; Start 01/09/17 at 21:00 Magnesium Hydroxide (Milk Of Magnesia Liq) 30 ml Q12H PRN PO MILD - MODERATE CONSTIPATION; Start 01/09/17 at 18:30 Sennosides (Senokot) 17.2 mg Q12H PRN PO MODERATE - SEVERE CONSTIPATION; Start 01/09/17 at 18:30 Bisacodyl (Dulcolax Supp) 10 mg DAILY PRN RECTAL SEVERE CONSITIPATION; Start at 18:30 Lactulose (Lactulose Liq) 30 ml DAILY PRN PO SEVERE CONSITIPATION; Start at 18:30 Furosemide (Lasix Inj) 40 mg Q12H IV Last administered on 01/10/17 21:56; Start 01/09/17 at 21:00; Stop 01/11/17 at 07:58; Status DC Vancomycin HCl 1000 mg/Sodium Chloride 250 ml @ 250 mls/hr Q12H IV ; Start at 18:30; Stop 01/09/17 at 20:22; Status DC Cefepime HCl 1000 mg/Sodium Chloride 100 ml @ 200 mls/hr Q8H IV Last administered on 01/11/17 04:27; Start 01/09/17 at 20:00; Stop 01/11/17 at 08:53 ; Status DC Pharmacy Profile Note 0 ml @ 0 mls/hr UNSCH OTHER ; Start 01/09/17 at 18:30; Stop 01/11/17 at 08:53; Status DC Albuterol/ Ipratropium (Duoneb Neb) 1 ampule Q4HR NEB INH Last administered on 01/13/17 15:42; Start 01/09/17 at 20:00; Stop 01/13/17 at 19:59; Status DC Albuterol Sulfate (Albuterol Neb) 2.5 mg Q2HR NEB PRN INH SHORTNESS OF BREATH; Start 01/09/17 at 18:45 Budesonide/ Formoterol Fumarate (Symbicort 160-4.5 Inh) 2 puff Q12HR INH Last administered on 01/19/17 08:42; Start 01/09/17 at 21:00 Methylprednisolone Sodium Succinate (SoluMEDROL INJ) 60 mg Q12H IV PUSH Last administered on 01/11/17 21:38; Start 01/09/17 at 21:00; Stop 01/12/17 at 08:13 ; Status DC Guaifenesin (Mucinex Er) 600 mg BID PO Last administered on 01/19/17 08:45; Start 01/09/17 at 21:00 Aspirin (Aspirin Chew) 81 mg DAILY PO Last administered on 01/19/17 08:44; Start 01/09/17 at 20:00; Status Future hold Atorvastatin Calcium (Lipitor) 40 mg HS PO Last administered on 01/18/17 21:33 ; Start 01/09/17 at 21:00 Gabapentin (Neurontin) 300 mg DAILY@0600 PO Last administered on 01/19/17 05: 57; Start 01/10/17 at 06:00 Hydralazine HCl (Apresoline) 50 mg Q8HR PO Last administered on 01/19/17 05:57 ; Start 01/09/17 at 22:00 Insulin Human NPH (NovoLIN N INJ) 22 units HS SQ Last administered on 20:19; Start 01/09/17 at 21:00; Stop 01/16/17 at 11:31; Status DC Isosorbide Mononitrate (Imdur) 60 mg DAILY@07 PO Last administered on 05:57; Start 01/10/17 at 07:00 Lactobacillus Acidophilus (Lactinex) 1 tab TIDAC PO Last administered on 08:41; Start 01/10/17 at 08:00 Ticagrelor (Brilinta) 90 mg BID PO Last administered on 01/19/17 08:44; Start 01/09/17 at 21:00; Status Future hold Tiotropium [place] (Spiriva Inh) 18 mcg DAILY INH ; Start 01/10/17 at 09:00; Stop 01/10/17 at 09:00; Status DC Pantoprazole Sodium (Protonix) 20 mg DAILY PO Last administered on 01/10/17 08 :31; Start 01/10/17 at 09:00; Stop 01/11/17 at 00:52; Status DC Gabapentin (Neurontin) 400 mg HS PO Last administered on 01/18/17 21:34; Start 01/09/17 at 21:00 Nitroglycerin (Nitrostat Sl) 0.4 mg Q5M PRN SL CHEST PAIN; Start 01/09/17 at 18 :45 Heparin Sodium/ Dextrose 250 ml @ 16.8 mls/hr TITRATE PRN IV Coagulation management Last administered on 01/10/17 16:40; Start 01/09/17 at 19:00; Status Future Hold Sodium Chloride (NS Flush) 2 ml BID IV FLUSH Last administered on 01/19/17 08: 43; Start 01/09/17 at 21:00 Sodium Chloride (NS Flush) 2 ml UNSCH PRN IV FLUSH FLUSH AFTER USING IV ACCESS ; Start 01/09/17 at 19:00 Alprazolam (Xanax) 0.25 mg Q8H PRN PO ANXIETY Last administered on 01/12/17 23 :39; Start 01/09/17 at 19:00 Vancomycin HCl 1500 mg/Sodium Chloride 515 ml @ 257.5 mls/ hr Q24H IV ; Start 01/09/17 at 22:00; Stop 01/10/17 at 10:03; Status DC Miscellaneous Information SPECIFIC LAB TO BE DRAWN:VANCO TROUGH DATE TO BE DR... ONCE ONCE .XX ; Start 01/12/17 at 21:45; Stop 01/12/17 at 21:46; Status Cancel Furosemide (Lasix Inj) 40 mg ONCE ONCE IV PUSH Last administered on 01/10/17 01:36; Start 01/10/17 at 01:30; Stop 01/10/17 at 01:31; Status DC Metoprolol Tartrate (Lopressor) 50 mg Q12HR PO Last administered on 01/15/17 21:45; Start 01/10/17 at 09:00; Stop 01/16/17 at 09:01; Status DC Vancomycin HCl 1500 mg/Sodium Chloride 515 ml @ 257.5 mls/ hr ONCE ONCE IV Last administered on 01/10/17 11:00; Start 01/10/17 at 11:00; Stop 01/10/17 at 12:59; Status DC Al Hydrox/Mg Hydrox/Simethicone (Mag-Al Plus Susp Liq) 30 ml ONCE ONCE PO Last administered on 01/10/17 22:45; Start 01/10/17 at 22:45; Stop 01/10/17 at 22:46; Status DC Pantoprazole Sodium 80 mg/ Sodium Chloride 100 ml @ 10 mls/hr Q10H IV Last administered on 01/14/17 00:39; Start 01/11/17 at 02:00; Stop 01/14/17 at 09:02 ; Status DC Pantoprazole Sodium 80 mg/ Sodium Chloride 35 ml @ 420 mls/hr Q5M ONCE IV Last administered on 01/11/17 01:49; Start 01/11/17 at 01:49; Stop 01/11/17 at 01:53; Status DC Propofol (Diprivan 200 Mg/20 ml Inj) 400 mg STK-MED ONCE .ROUTE ; Start at 12:10; Stop 01/11/17 at 12:11; Status DC Lactated Ringer's 1,000 ml @ 30 mls/hr Q24H ONCE IV Last administered on 12:19; Start 01/11/17 at 13:00; Stop 01/12/17 at 12:59; Status DC Miscellaneous Information ALL NURSING DEPARTME... UNSCH PRN .XX SEE LABEL COMMENTS; Start 01/11/17 at 12:56; Stop 01/12/17 at 12:55; Status DC Bumetanide (Bumex Inj) 2 mg Q8H IV PUSH Last administered on 01/15/17 12:52; Start 01/11/17 at 20:00; Stop 01/15/17 at 14:09; Status DC Chlorothiazide Sodium (Diuril Inj) 500 mg ONCE ONCE IV Last administered on 21:57; Start 01/11/17 at 20:00; Stop 01/11/17 at 21:04; Status DC Bacitracin (Bacitracin Oint Packet) 0.9 gm DAILY TOPICAL Last administered on 08:48; Start 01/12/17 at 09:00 Methylprednisolone Sodium Succinate (SoluMEDROL INJ) 40 mg Q12H IV PUSH Last administered on 01/12/17 22:41; Start 01/12/17 at 09:00; Stop 01/13/17 at 08:26 ; Status DC Cefepime HCl 1000 mg/Sodium Chloride 100 ml @ 200 mls/hr DAILY IV Last administered on 01/12/17 09:10; Start 01/12/17 at 09:00; Stop 01/13/17 at 08:26 ; Status DC Ergocalciferol (Drisdol) 50,000 units Q7D PO Last administered on 01/12/17 16: 00; Start 01/12/17 at 16:00 Pantoprazole Sodium (Protonix Inj) 40 mg Q24H IV PUSH ; Start 01/12/17 at 16:45 ; Status UNV Methylprednisolone Sodium Succinate (SoluMEDROL INJ) 20 mg Q12H IV PUSH Last administered on 01/16/17 21:00; Start 01/13/17 at 09:00; Stop 01/17/17 at 08:07 ; Status DC Sodium Polystyrene Sulfonate (Kayexalate Liq) 15 gm ONCE ONCE PO Last administered on 01/13/17 11:45; Start 01/13/17 at 11:00; Stop 01/13/17 at 11:01 ; Status DC Sodium Polystyrene Sulfonate (Kayexalate Liq) 15 gm ONCE ONCE PO Last administered on 01/13/17 11:45; Start 01/13/17 at 11:15; Stop 01/13/17 at 11:26 ; Status DC Chlorothiazide Sodium (Diuril Inj) 500 mg ONCE ONCE IV Last administered on 11:15; Start 01/13/17 at 11:15; Stop 01/13/17 at 11:26; Status DC Dextrose (D50w (Syr) Inj) 50 ml STK-MED ONCE .ROUTE Last administered on 08:17; Start 01/14/17 at 08:07; Stop 01/14/17 at 08:08; Status DC Pantoprazole Sodium (Protonix) 40 mg Q12HR PO Last administered on 01/19/17 08 :46; Start 01/14/17 at 09:00 Polyethylene Glycol (Miralax) 17 gm DAILY PO Last administered on 01/18/17 10: 16; Start 01/14/17 at 09:00 Metoclopramide HCl (Reglan Inj) 10 mg STK-MED ONCE .ROUTE Last administered on 01/14/17 13:01; Start 01/14/17 at 13:01; Stop 01/14/17 at 13:02; Status DC Lidocaine HCl (Xylocaine-Mpf 1% Inj) 5 ml STK-MED ONCE OTHER ; Start 01/11/17 at 12:00; Stop 01/14/17 at 16:06; Status DC Succinylcholine Chloride (Quelicin Inj) 100 mg STK-MED ONCE IV PUSH ; Start at 12:00; Stop 01/14/17 at 16:06; Status DC Ondansetron HCl (Zofran Inj) 4 mg STK-MED ONCE IV PUSH ; Start 01/11/17 at 12:00 ; Stop 01/14/17 at 16:06; Status DC Fentanyl Citrate (fentaNYL INJ) 100 mcg STK-MED ONCE IV ; Start 01/11/17 at 12: 00; Stop 01/14/17 at 16:06; Status DC Bethanechol Chloride (Urecholine) 12.5 mg Q8HR PO Last administered on 05:57; Start 01/15/17 at 14:00 Miscellaneous (Pill Splitter) 1 ea UNSCH PRN OTHER SEE LABEL COMMENTS; Start at 14:15 Bumetanide (Bumex Inj) 2 mg Q12HR IV PUSH Last administered on 01/16/17 10:16 ; Start 01/16/17 at 09:00; Stop 01/16/17 at 18:23; Status DC Calcium Acetate (Phoslo) 667 mg TIDPC PO Last administered on 01/19/17 08:46; Start 01/15/17 at 18:30 Metoprolol Tartrate (Lopressor) 75 mg Q12HR PO Last administered on 01/18/17 21:34; Start 01/16/17 at 10:00 Miscellaneous (Pill Splitter) 1 ea UNSCH PRN OTHER SEE LABEL COMMENTS Last administered on 01/19/17 05:57; Start 01/16/17 at 09:15 Insulin Human NPH (NovoLIN N INJ) 10 units HS SQ Last administered on 21:00; Start 01/16/17 at 21:00; Stop 01/17/17 at 08:08; Status DC Bumetanide (Bumex Inj) 1 mg Q12HR IV PUSH Last administered on 01/17/17 09:15 ; Start 01/16/17 at 21:00; Stop 01/17/17 at 17:53; Status DC Insulin Human NPH (NovoLIN N INJ) 14 units HS SQ Last administered on 21:34; Start 01/17/17 at 21:00; Stop 01/18/17 at 10:21; Status DC Prednisone (Deltasone) 40 mg DAILY PO Last administered on 01/19/17 08:45; Start 01/17/17 at 09:00 Bumetanide (Bumex Inj) 2 mg Q12HR IV PUSH Last administered on 01/19/17 08:44 ; Start 01/17/17 at 21:00 Insulin Human NPH (NovoLIN N INJ) 20 units HS SQ Last administered on 21:36; Start 01/18/17 at 21:00 Acetazolamide Sodium (Diamox Inj) 500 mg ONCE ONCE IV PUSH Last administered on 01/18/17 19:34; Start 01/18/17 at 15:00; Stop 01/18/17 at 15:01; Status DC Potassium Chloride (KCl) 20 meq ONCE ONCE PO Last administered on 01/18/17 17 :44; Start 01/18/17 at 14:00; Stop 01/18/17 at 14:01; Status DC Acetazolamide Sodium (Diamox Inj) 500 mg ONCE ONCE IV PUSH ; Start 01/19/17 at 11:45; Stop 01/19/17 at 11:51; Status DC A/P Assessment and Plan A/P Questionable CHF exacerbation COPD exacerbation - secondary to medication noncompliance - echocardiogram with EF 65% - started on Bumex - switched to po prednisone- will start to taper down . - continue neb treatment - Supplemental oxygen to maintain O2 sats above 92% - Continue home bronchodilators - Monitor respiratory status - IS - Strict I&Os - Salt and fluid restricted diet Chest pain with elevated troponin CAD s/p cardiac catheterization with implantation of bare metal stent 12/21/16 Atrial fibrillation -stopped heparin drip due to GI bleed - Continuous cardiac monitoring - Supplemental oxygen - resumed Brilinta and aspirin ( ok with GI) - Continue isosorbide - continue statin - continue with pain control -cardiology following. upper GI bleed delayed gastric emptying - s/p EGD; large gastric residual and gastritis - monitor H/H and transfuse as needed - continue protonix -trial of Bethanechol - GI follow- up appreciated and cleared for discharge with outpatient follow-up. acute kidney injury superimposed on chronic renal insufficiency --renal US with no hydronephrosis - started on Bumex -SPEP with no abnormal bands - will monitor the renal function closely -awaiting recovery -nephrology following. hyperkalemia; resolved. DM with hypoglycemic episode- with no recurrence now hyperglycemic - Accu-Chek - Insulin sliding scale - increase NPH -the blood sugar levels expected to improve as steroids being tapered off. -will monitor and adjust the regimen as needed. HTN HLD - Continue antihypertensive medications; will decrease metoprolol due to low- normal BP's - resumed home statin therapy - Monitor BP Neuropathy - Resumed home gabapentin LLE wound with left third toe swelling and erythema - Wound care consult appreciated. - -blood cultures negative so far -podiatry consult appreciated; no need for antibiotics. -venous doppler of the left leg negative for DVT Incidental finding of 1 cm irregular nodule right upper lobe - CT chest 12/23/16 - Recommend follow-up CT at approximately 3, 9 and 24 months and or contrast enhanced CT, PET and/or biopsy Chronic indwelling [place] with asymptomatic bacteriuria ; afebrile- likely contamination- GI prophylaxis - PPI DVT prophylaxis -heparin was discontinued due to GI bleed. Discharge Planning when cleared by cardiology and nephrology- awaiting renal recovery. Bob Phillips MD Jan 19, 2017 12:10
[2017-01-19] MEDS: ERGOCALCIFEROL (VIT D2) 50,000 UNIT CAP PO SCH (15:41)
[2017-01-19] MEDS ORDERED: INSULIN HUMAN NPH 1,000 UNITS/10 ML VIAL SQ SCH (21:00)
[2017-01-19] MEDS: GABAPENTIN 400 MG CAP PO SCH (21:17)
[2017-01-19] MEDS: ATORVASTATIN 40 MG TAB PO SCH (21:17)
[2017-01-20] VITALS (9 sets, daily range): BP systolic 111–133; BP diastolic 59–70; PULSE 54–71; RESP 18–20; TEMP 97.1–97.5; O2SAT 93–100
[2017-01-20] MEDS: hydrALAZINE HCL 50 MG TAB PO SCH ×3 (06:08→21:37)
[2017-01-20] MEDS: BETHANECHOL CHL 25 MG TAB PO SCH ×3 (06:09→21:38)
[2017-01-20] MEDS: GABAPENTIN 300 MG CAP PO SCH (06:09)
[2017-01-20] MEDS: ISOSORBIDE MONONITRATE 60 MG TAB PO SCH (06:09)
[2017-01-20] MEDS: LACTOBACILLUS ACIDOPHILUS TAB PO SCH ×3 (08:31→17:27)
[2017-01-20] MEDS: INSULIN ASPART SUPPLEMENTAL SCALE SQ SCH ×4 (08:32→21:40)
[2017-01-20] MEDS: BUDESONIDE-FORMOTEROL 160/4.5 MCG INHALER INH SCH ×2 (08:32→21:37)
[2017-01-20] MEDS: SODIUM CHLORIDE 0.9% FLUSH 10 ML FLUSH IV FLUSH SCH ×2 (08:33→21:39)
[2017-01-20] MEDS: BUMETANIDE INJ 1 MG/4 ML VIAL IV PUSH SCH ×2 (08:33→21:39)
[2017-01-20] MEDS: ASPIRIN 81 MG CHEW TAB PO SCH (08:33)
[2017-01-20] MEDS: TICAGRELOR 90 MG TAB PO SCH ×2 (08:34→21:37)
[2017-01-20] MEDS: predniSONE 20 MG TAB PO SCH (08:35)
[2017-01-20] MEDS: DOCUSATE SODIUM 50 MG/SENNA 8.6 MG TAB PO SCH ×2 (08:35→21:38)
[2017-01-20] MEDS: POLYETHYLENE GLYCOL 17 GM PKG PO SCH (08:35)
[2017-01-20] MEDS: guaiFENesin E.R. 600 MG TAB PO SCH ×2 (08:35→21:37)
[2017-01-20] MEDS: PANTOPRAZOLE SOD 40 MG DELAYED RELEASE TAB PO SCH ×2 (08:35→21:38)
[2017-01-20] MEDS: BACITRACIN OINT 0.9 GM PKT TOPICAL SCH (08:36)
[2017-01-20] MEDS: CALCIUM ACETATE 667 MG CAP PO SCH ×3 (08:36→17:25)
[2017-01-20] MEDS: METOPROLOL TARTRATE 50 MG TAB PO SCH ×2 (08:40→21:38)
[2017-01-20 09:45] LABS: BICARBONATE 29.1 MEQ/L (21.0-32.0)
[2017-01-20 09:48] LABS: POTASSIUM 4.7 MEQ/L (3.5-5.1)
--- NOTE | 2017-01-20 14:42 | HHI.PR ---
Subjective Remarks Follow up for Afib, CHF, acute on chronic renal failure. Patient is somewhat lethargic today. Wakes up on verbal commands. Does not voice any concerns. Afebrile. Objective Vitals Vital Signs Date Time Temp Pulse Resp B/P (MAP) Pulse Ox O2 Delivery O2 Flow Rate FiO2 01/20/17 12:00 97.5 61 18 133/70 (91) 100 01/20/17 11:42 93 Nasal Cannula 3.00 01/20/17 08:00 97.5 56 20 111/59 (76) 93 01/20/17 04:00 97.1 69 20 115/70 (85) 97 01/20/17 04:00 Nasal Cannula 3.00 01/20/17 00:00 97.1 64 18 114/67 (83) 97 01/20/17 00:00 Nasal Cannula 3.00 01/19/17 20:00 97.1 67 18 124/73 (90) 98 01/19/17 20:00 Nasal Cannula 3.00 Humidified 01/19/17 19:59 65 01/19/17 16:00 97.9 67 18 108/67 (81) 96 I/O 01/19/17 01/19/17 01/19/17 01/20/17 01/20/17 01/20/17 07:00 15:00 23:00 07:00 15:00 23:00 Intake Total 480 ml 480 ml Output Total 850 ml 500 ml Balance -370 ml -20 ml Intake Oral 480 ml 480 ml Output Urine Total 850 ml 500 ml # Bowel Movements 1 Result Diagram: 01/18/17 0618 01/20/17 0815 Imaging Last Impressions Gastric Emptying Nuclear Medicine 01/14/17 0000 Signed Impressions: Service Date/Time: Saturday, January 14, 2017 11:18 - CONCLUSION: 1. Markedly prolonged gastric emptying with no response to Reglan Kenji Calderon MD Abdomen X-Ray 01/12/17 0000 Signed Impressions: Service Date/Time: Thursday, January 12, 2017 10:07 - CONCLUSION: 1. No acute abdominal abnormality is identified. 2. Severe atherosclerotic disease. Storm Allen MD Renal Ultrasound 01/11/17 0000 Signed Impressions: Service Date/Time: Wednesday, January 11, 2017 23:22 - CONCLUSION: No evidence of hydronephrosis. 2.8 cm left renal cyst. Clemente Matute MD Chest X-Ray 01/11/17 0000 Signed Impressions: Service Date/Time: Wednesday, January 11, 2017 08:46 - CONCLUSION: Mild improvement vascularity CHF Mike Scott MD Lower Extremity Ultrasound 01/10/17 0000 Signed Impressions: Service Date/Time: December 08:44 - CONCLUSION: 1. Negative left lower extremity DVT study. A Clay's cyst measuring 2.5 x 4.7 x 1 cm. Carlitos Corona MD Toe X-Ray 01/09/17 0000 Signed Impressions: Service Date/Time: Monday, January 09, 2017 17:40 - CONCLUSION: Soft tissue swelling third digit without bony destruction. Wilfredo Maddox MD FACR Objective Remarks GENERAL: Wakes up on verbal commands, somewhat lethargic, NAD. SKIN: Warm and dry. HEAD: Normocephalic. EYES: No scleral icterus. No injection or drainage. NECK: Supple, trachea midline. No JVD or lymphadenopathy. CARDIOVASCULAR: Regular rate and rhythm without murmurs, gallops, or rubs. RESPIRATORY: Breath sounds equal bilaterally. No accessory muscle use. GASTROINTESTINAL: Abdomen soft, non-tender, nondistended. MUSCULOSKELETAL: No cyanosis. 2+ bilateral lower ext edema. BACK: Nontender without obvious deformity. No CVA tenderness. Procedures 01/10/2017 Echo Normal left ventricular size. Mild concentric left ventricular hypertrophy. The left ventricular systolic function is hyperdynamic with an estimated ejection fraction in the range of 65- 70%. This study was not technically sufficient to allow for evaluation of left ventricular diastolic function. The right ventricle is moderately dilated. The right ventricular systoilc function is mildly decreased. The left atrial size is moderately dilated. The right atrial size is moderate to severely dilated. The interatrial septum not well visualized. Mild thickening of the mitral valve leaflets. [id number] mitral valve regurgitation. Trace aortic valve regurgitation. No aortic valve stenosis. Annular dilatation of the tricuspid valve. There is moderate to severe tricuspid valve regurgitation. There is estimated moderate pulmonary hypertension present (range 50-60 mmHg). The inferior vena cava was not well visualized. A prominent epicardial fat pad is present. 01/11/2017 EGD Large gastric residuals Gastritis A/P Problem List: (1) COPD exacerbation ICD Code: J44.1 - Chronic obstructive pulmonary disease with (acute) exacerbation Status: Acute (2) Congestive heart failure ICD Code: I50.9 - Congestive heart failure Status: Acute (3) Infection of toe ICD Code: L08.9 - Local infection of the skin and subcutaneous tissue, unspecified Status: Acute (4) Shortness of breath dyspnea ICD Code: R06.02 - Shortness of breath dyspnea Status: Acute (5) Hypertension ICD Code: I10 - Hypertension Status: Chronic (6) Chronic obstructive pulmonary disease ICD Code: J44.9 - Chronic obstructive pulmonary disease Status: Chronic (7) Hyperlipidemia ICD Code: E78.5 - Hyperlipidemia Status: Chronic (8) Chronic kidney disease, stage III (moderate) ICD Code: N18.3 - Chronic kidney disease, stage III (moderate) Status: Acute (9) Atrial fibrillation ICD Code: I48.91 - Atrial fibrillation Status: Chronic (10) DM (diabetes mellitus) ICD Code: E11.9 - DM (diabetes mellitus) Status: Acute (11) NSTEMI (non-ST elevated myocardial infarction) ICD Code: I21.4 - Non-ST elevation (NSTEMI) myocardial infarction (12) UTI (lower urinary tract infection) ICD Code: N39.0 - UTI (lower urinary tract infection) Status: Acute (13) Anemia ICD Code: D64.9 - Anemia Status: Acute (14) Diabetes ICD Code: E11.9 - Diabetes mellitus Status: Acute Assessment and Plan This is an 86-year-old male with past medical history significant for coronary artery disease status post recent stenting with implantation of bare- metal stent s/p discharge 01/01/17, COPD, questionable CHF, diabetes, atrial fibrillation, neuropathy, GERD and history of prostate cancer who presented to [facility] ED on 01/09/2017 with complaints of shortness of breath and chest discomfort for 2 days prior to this admission. Patient was found to have acute on chronic kidney disease. On admission, his troponins were significantly elevated. - Acute diastolic congestive heart failure - Coronary artery disease with recent bare metal stent placement. - Elevated troponins were likely related to NSTEMI from previous admission. - BNP > 400. LVEF 65-70%. - Continue aspirin 81 mg, Ticagrelor 90mg BID. - Currently on Bumex 2mg IV Q12hrs. - Continue Metoprolol Q12hrs, Imdur 60mg Qday, Lipitor 40mg QHS. - Will get CXR in the AM. - Acute kidney injury - Chronic kidney disease - baseline creatinine 1.5. - Creatinine 3.30 --> 3.43. - Appreciate nephrology input. Possible dialysis if creatinine continues to worsen. - Continue Bumex 2mg Q12hrs IV. Consider metolazone. - Probable upper GI bleed - EGD did not show any evidence of active bleeding site. - H&H stable, 9.7/29.4. - Continue PPI. - Diabetes mellitus type 2 - Continue Levemir 15 units QHS, sliding scale insulin. - Incidental finding of 1 cm irregular nodule right upper lobe - CT chest 12/23/16 - Recommend follow-up CT at approximately 3, 9 and 24 months and or contrast enhanced CT, PET and/or biopsy Full code. Will consider heparin SQ which will increase the risk of bleeding since patient is also on aspirin and Ticagrelor. Problem Qualifiers (1) Congestive heart failure: Qualified Codes: I50.23 - Acute on chronic systolic (congestive) heart failure Mark Monzon DO Jan 20, 2017 14:42
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
[2017-01-20] MEDS: ATORVASTATIN 40 MG TAB PO SCH (21:38)
[2017-01-20] MEDS: INSULIN DETEMIR 100 UNITS/ML VIAL SQ SCH (21:39)
[2017-01-21] VITALS (10 sets, daily range): BP systolic 110–139; BP diastolic 53–79; PULSE 55–70; RESP 18–20; TEMP 97.3–97.6; O2SAT 95–99
[2017-01-21] MEDS: hydrALAZINE HCL 50 MG TAB PO SCH ×3 (06:21→22:06)
[2017-01-21] MEDS: ISOSORBIDE MONONITRATE 60 MG TAB PO SCH (06:21)
[2017-01-21] MEDS: GABAPENTIN 300 MG CAP PO SCH (06:21)
[2017-01-21] MEDS: BETHANECHOL CHL 25 MG TAB PO SCH ×3 (06:21→22:07)
[2017-01-21] MEDS: INSULIN ASPART SUPPLEMENTAL SCALE SQ SCH ×4 (08:00→22:09)
--- NOTE | 2017-01-21 08:24 | RADRPT ---
EXAM DATE/TIME: 01/21/2017 07:44 [facility] COMPARISON: CHEST SINGLE AP, January 11, 2017, 8:46. INDICATIONS : Spitting up blood since lastnight; Congestive heart failure. MEDICAL HISTORY : Myocardial infarction. Congestive heart failure. Hypercholesterolemia SURGICAL HISTORY : Coronary artery stent. Appendectomy. Cardiac cath ENCOUNTER: Subsequent ACUITY: 1 day PAIN SCORE: 0/10 LOCATION: Bilateral chest FINDINGS: The cardiac silhouette is enlarged in transverse diameter. There is prominence of the central pulmona ry vasculature with indistinct vascular margins compatible with vascular congestion but no evidence o f overt failure. No pleural effusions are identified. There is prominence of the aortic knob is with calcification characteristic of atherosclerotic vascular disease. CONCLUSION: 1. Cardiomegaly and findings of vascular congestion without overt failure. Kenji Calderon MD on January 21, 2017 at 8:22 Board Certified Radiologist. This report was verified electronically.
--- NOTE | 2017-01-21 08:53 | PD.CARD.PN ---
Subjective Subjective Remarks very short of breath over night Objective Vital Signs / I&O Vital Signs Date Time Temp Pulse Resp B/P (MAP) Pulse Ox O2 Delivery O2 Flow Rate FiO2 01/21/17 07:25 98 Nasal Cannula 3.00 01/21/17 04:00 97.6 64 20 117/68 (84) 98 01/21/17 04:00 Nasal Cannula 3.00 Humidified 01/21/17 00:00 97.4 70 18 127/63 (84) 96 01/21/17 00:00 Nasal Cannula 3.00 01/20/17 20:21 71 01/20/17 20:00 Nasal Cannula 3.00 01/20/17 20:00 97.4 60 20 118/70 (86) 99 01/20/17 18:06 96 Nasal Cannula 3.00 01/20/17 16:44 54 01/20/17 16:00 97.4 69 20 120/69 (86) 96 01/20/17 12:00 97.5 61 18 133/70 (91) 100 01/20/17 11:42 93 Nasal Cannula 3.00 I/O 01/20/17 01/20/17 01/20/17 01/21/17 01/21/17 01/21/17 07:00 15:00 23:00 07:00 15:00 23:00 Intake Total 480 ml Output Total 1000 ml 2130 ml Balance -520 ml -2130 ml Intake Oral 480 ml Output Urine Total 1000 ml 2130 ml # Bowel Movements 1 2 Physical Exam GENERAL: Well-nourished, well-developed patient in no apparent distress. NECK: No JVD. No carotid bruit. CARDIOVASCULAR: Regular rate and rhythm. S1/S2 no murmur, rub, or gallop. RESPIRATORY: No accessory muscle use. rales to auscultation. Breath sounds equal bilaterally. GASTROINTESTINAL: Abdomen soft, non-tender, nondistended. MUSCULOSKELETAL: Extremities without clubbing, cyanosis, or edema. Assessment and Plan Problem List: (1) Atrial fibrillation ICD Codes: I48.91 - Atrial fibrillation Status: Chronic (2) Congestive heart failure ICD Codes: I50.9 - Congestive heart failure Status: Acute Assessment and Plan CHF - worsening hyponatremia and renal function, further recommendations per Dr. Rodríguez CAD - doing well Problem Qualifiers (1) Congestive heart failure: Qualified Codes: I50.23 - Acute on chronic systolic (congestive) heart failure Kory Jacobs Jan 21, 2017 08:53
[2017-01-21] MEDS: DOCUSATE SODIUM 50 MG/SENNA 8.6 MG TAB PO SCH ×2 (09:00→22:07)
[2017-01-21] MEDS: POLYETHYLENE GLYCOL 17 GM PKG PO SCH (09:00)
[2017-01-21] MEDS: BACITRACIN OINT 0.9 GM PKT TOPICAL SCH (09:00)
[2017-01-21] MEDS: SODIUM CHLORIDE 0.9% FLUSH 10 ML FLUSH IV FLUSH SCH ×2 (09:12→22:08)
[2017-01-21] MEDS: CALCIUM ACETATE 667 MG CAP PO SCH ×3 (09:12→17:25)
[2017-01-21] MEDS: METOPROLOL TARTRATE 50 MG TAB PO SCH ×2 (09:12→22:07)
[2017-01-21] MEDS: PANTOPRAZOLE SOD 40 MG DELAYED RELEASE TAB PO SCH ×2 (09:12→22:07)
[2017-01-21] MEDS: BUMETANIDE INJ 1 MG/4 ML VIAL IV PUSH SCH ×2 (09:12→22:08)
[2017-01-21] MEDS: predniSONE 20 MG TAB PO SCH (09:12)
[2017-01-21] MEDS: guaiFENesin E.R. 600 MG TAB PO SCH ×2 (09:12→22:07)
[2017-01-21] MEDS: TICAGRELOR 90 MG TAB PO SCH ×2 (09:13→22:07)
[2017-01-21] MEDS: ASPIRIN 81 MG CHEW TAB PO SCH (09:13)
[2017-01-21] MEDS: LACTOBACILLUS ACIDOPHILUS TAB PO SCH ×3 (09:13→17:00)
[2017-01-21] MEDS: BUDESONIDE-FORMOTEROL 160/4.5 MCG INHALER INH SCH ×2 (09:14→22:06)
[2017-01-21] MEDS ORDERED: AMIODARONE INJ 150 MG in DEXTROSE 5% IN WATER 100ML INJ 100 ML IV ONE ×2 (10:27)
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
[2017-01-21 12:13] LABS: HEMATOCRIT 29.3 % (39.0-51.0); MEAN CELL VOLUME 86.6 FL (80.0-100.0); MEAN CORPUSCULAR HEMOGLOBIN 27.9 PG (27.0-34.0); MEAN CORPUSCULAR HGB CONC 32.2 % (32.0-36.0); PLATELET COUNT 185 TH/MM3 (150-450); RED BLOOD COUNT 3.39 MIL/MM3 (4.50-5.90); RED CELL DISTRIBUTION WIDTH 15.8 % (11.6-17.2); REVIEW FLAG FINAL; WHITE BLOOD COUNT 14.6 TH/MM3 (4.0-11.0)
[2017-01-21] MEDS: AMIODARONE INJ 450 MG in DEXTROSE 5% IN WATE(EXCEL) INJ 241 ML IV SCH ×4 (12:31→17:19)
[2017-01-21 12:32] LABS: BICARBONATE 30.7 MEQ/L (21.0-32.0); POTASSIUM 3.9 MEQ/L (3.5-5.1)
--- NOTE | 2017-01-21 13:11 | HHI.PR ---
Subjective Remarks Follow up for Afib, CHF, acute on chronic renal failure. Patient is having productive cough with greenish sputum. No fever, chills. Objective Vitals Vital Signs Date Time Temp Pulse Resp B/P (MAP) Pulse Ox O2 Delivery O2 Flow Rate FiO2 01/21/17 12:31 62 105/63 01/21/17 11:56 60 114/62 01/21/17 08:50 Nasal Cannula 3.00 Humidified 01/21/17 08:00 97.3 61 18 113/53 (73) 95 01/21/17 07:52 55 01/21/17 07:25 98 Nasal Cannula 3.00 01/21/17 04:00 97.6 64 20 117/68 (84) 98 01/21/17 04:00 Nasal Cannula 3.00 Humidified 01/21/17 00:00 97.4 70 18 127/63 (84) 96 01/21/17 00:00 Nasal Cannula 3.00 01/20/17 20:21 71 01/20/17 20:00 Nasal Cannula 3.00 01/20/17 20:00 97.4 60 20 118/70 (86) 99 01/20/17 18:06 96 Nasal Cannula 3.00 01/20/17 16:44 54 01/20/17 16:00 97.4 69 20 120/69 (86) 96 I/O 01/20/17 01/20/17 01/20/17 01/21/17 01/21/17 01/21/17 07:00 15:00 23:00 07:00 15:00 23:00 Intake Total 480 ml Output Total 1000 ml 2130 ml Balance -520 ml -2130 ml Intake Oral 480 ml Output Urine Total 1000 ml 2130 ml # Bowel Movements 1 2 Result Diagram: 01/21/17 1135 01/21/17 1135 Imaging Last Impressions Chest X-Ray 01/21/17 0800 Signed Impressions: Service Date/Time: Saturday, January 21, 2017 07:44 - CONCLUSION: 1. Cardiomegaly and findings of vascular congestion without overt failure. Kenji Calderon MD Gastric Emptying Nuclear Medicine 01/14/17 0000 Signed Impressions: Service Date/Time: Saturday, January 14, 2017 11:18 - CONCLUSION: 1. Markedly prolonged gastric emptying with no response to Reglan Kenji Calderon MD Abdomen X-Ray 01/12/17 0000 Signed Impressions: Service Date/Time: Thursday, January 12, 2017 10:07 - CONCLUSION: 1. No acute abdominal abnormality is identified. 2. Severe atherosclerotic disease. Storm Allen MD Renal Ultrasound 01/11/17 0000 Signed Impressions: Service Date/Time: Wednesday, January 11, 2017 23:22 - CONCLUSION: No evidence of hydronephrosis. 2.8 cm left renal cyst. Clemente Matute MD Lower Extremity Ultrasound 01/10/17 0000 Signed Impressions: Service Date/Time: December 08:44 - CONCLUSION: 1. Negative left lower extremity DVT study. A Clay's cyst measuring 2.5 x 4.7 x 1 cm. Carlitos Corona MD Toe X-Ray 01/09/17 0000 Signed Impressions: Service Date/Time: Monday, January 09, 2017 17:40 - CONCLUSION: Soft tissue swelling third digit without bony destruction. Wilfredo Maddox MD FACR Objective Remarks GENERAL: Wakes up on verbal commands, somewhat lethargic, NAD. SKIN: Warm and dry. HEAD: Normocephalic. EYES: No scleral icterus. No injection or drainage. NECK: Supple, trachea midline. No JVD or lymphadenopathy. CARDIOVASCULAR: Regular rate and rhythm without murmurs, gallops, or rubs. RESPIRATORY: Breath sounds equal bilaterally. No accessory muscle use. GASTROINTESTINAL: Abdomen soft, non-tender, nondistended. MUSCULOSKELETAL: No cyanosis. 2+ bilateral lower ext edema. BACK: Nontender without obvious deformity. No CVA tenderness. Procedures 01/10/2017 Echo Normal left ventricular size. Mild concentric left ventricular hypertrophy. The left ventricular systolic function is hyperdynamic with an estimated ejection fraction in the range of 65- 70%. This study was not technically sufficient to allow for evaluation of left ventricular diastolic function. The right ventricle is moderately dilated. The right ventricular systoilc function is mildly decreased. The left atrial size is moderately dilated. The right atrial size is moderate to severely dilated. The interatrial septum not well visualized. Mild thickening of the mitral valve leaflets. [id number] mitral valve regurgitation. Trace aortic valve regurgitation. No aortic valve stenosis. Annular dilatation of the tricuspid valve. There is moderate to severe tricuspid valve regurgitation. There is estimated moderate pulmonary hypertension present (range 50-60 mmHg). The inferior vena cava was not well visualized. A prominent epicardial fat pad is present. 01/11/2017 EGD Large gastric residuals Gastritis A/P Problem List: (1) COPD exacerbation ICD Code: J44.1 - Chronic obstructive pulmonary disease with (acute) exacerbation Status: Acute (2) Congestive heart failure ICD Code: I50.9 - Congestive heart failure Status: Acute (3) Infection of toe ICD Code: L08.9 - Local infection of the skin and subcutaneous tissue, unspecified Status: Acute (4) Shortness of breath dyspnea ICD Code: R06.02 - Shortness of breath dyspnea Status: Acute (5) Hypertension ICD Code: I10 - Hypertension Status: Chronic (6) Chronic obstructive pulmonary disease ICD Code: J44.9 - Chronic obstructive pulmonary disease Status: Chronic (7) Hyperlipidemia ICD Code: E78.5 - Hyperlipidemia Status: Chronic (8) Chronic kidney disease, stage III (moderate) ICD Code: N18.3 - Chronic kidney disease, stage III (moderate) Status: Acute (9) Atrial fibrillation ICD Code: I48.91 - Atrial fibrillation Status: Chronic (10) DM (diabetes mellitus) ICD Code: E11.9 - DM (diabetes mellitus) Status: Acute (11) NSTEMI (non-ST elevated myocardial infarction) ICD Code: I21.4 - Non-ST elevation (NSTEMI) myocardial infarction (12) UTI (lower urinary tract infection) ICD Code: N39.0 - UTI (lower urinary tract infection) Status: Acute (13) Anemia ICD Code: D64.9 - Anemia Status: Acute (14) Diabetes ICD Code: E11.9 - Diabetes mellitus Status: Acute Assessment and Plan This is an 86-year-old male with past medical history significant for coronary artery disease status post recent stenting with implantation of bare- metal stent s/p discharge 01/01/17, COPD, questionable CHF, diabetes, atrial fibrillation, neuropathy, GERD and history of prostate cancer who presented to [facility] ED on 01/09/2017 with complaints of shortness of breath and chest discomfort for 2 days prior to this admission. Patient was found to have acute on chronic kidney disease. On admission, his troponins were significantly elevated. - Probable aspiration pneumonia - Patient's CBC shows WBC increased from 9.7 --> 14.6, having productive cough. - CXR image reviewed by me shows CHF congestion as well as possibly infiltrates on the right lower lung. - Will start patient on Levaquin IV adjusted for renal function as well as IV Flagyl. - Acute diastolic congestive heart failure - Coronary artery disease with recent bare metal stent placement. - Elevated troponins were likely related to NSTEMI from previous admission. - BNP > 400. LVEF 65-70%. - Continue aspirin 81 mg, Ticagrelor 90mg BID. - Currently on Bumex 2mg IV Q12hrs. Nephrology added Diuril. - Continue Metoprolol Q12hrs, Imdur 60mg Qday, Lipitor 40mg QHS. - Acute kidney injury - Chronic kidney disease - baseline creatinine 1.5. - Creatinine 3.30 --> 3.43 --> 3.13. - Appreciate nephrology input. Possible dialysis if creatinine continues to worsen. - Continue Bumex 2mg Q12hrs IV and Diuril. - Probable upper GI bleed - EGD did not show any evidence of active bleeding site. - Hgb 9.4. - Continue PPI. - Diabetes mellitus type 2 - Continue Levemir 15 units QHS, sliding scale insulin. - Incidental finding of 1 cm irregular nodule right upper lobe - CT chest 12/23/16 - Recommend follow-up CT at approximately 3, 9 and 24 months and or contrast enhanced CT, PET and/or biopsy Full code. Will consider heparin SQ which will increase the risk of bleeding since patient is also on aspirin and Ticagrelor. Problem Qualifiers (1) Congestive heart failure: Qualified Codes: I50.23 - Acute on chronic systolic (congestive) heart failure Mark Monzon DO Jan 21, 2017 1:11 pm
[2017-01-21] MEDS: CHLOROTHIAZIDE SOD 500 MG VIAL IV SCH (13:23)
[2017-01-21] MEDS: LEVOFLOXACIN 500 MG PREMIX INJ 100 ML IV SCH (14:46)
--- NOTE | 2017-01-21 15:06 | PD.CONS ---
Consult Service Palliative Care Consult Requested By Dr. Monzon. . Primary Care Physician [facility] Reason for Consultation a. To assist with evaluation and management of symptoms including: dyspnea, debility b. To assist medical decision maker(s) with: better understanding of current medical conditions; weighing benefits/burdens of medical treatment options; making medical treatment decisions. . (Shade,Alcira SOSAP) HPI History of Present Illness Patient is an 86 year old male who presented to the ED via EVAC on 01/09/17 for evaluation of chest pain and shortness of breath. The patient was hospitalized the week prior for STEMI, Dr. Frazier completed PTCA and placement of bare metal stents to the LAD, the patient was started on Brilinta. The patient stated following his discharge he was unable to obtain his prescribed medications due to financial hardship but he endorsed he was taking his Brilinta as prescribed. * ED workup: ECG: Atrial fibrillation with right bundle branch block anterior myocardial infarction. Significant laboratory data: BUN:36, Creatinine:1.78, GFR :37, Calcium:8.1, AST:60, Alk Phos:187, Total Creatinine Kinase:346, CK- MB:23.2, troponin:7.6, BNP:454, total protein:6.3, albumin:2.8. CXR: Findings suspicious for congestive heart failure. Patient was initiated on a heparin gtt and admitted for COPD exacerbation and CHF. * Cardiology was consulted to evaluate patient, echocardiogram: EF:65%-70%. Cardiology documented the patient's elevated troponins are likely secondary to the AZ he suffered from the week prior and demand mediated response to CHF. * 01/11/17: GI consulted to evaluate patient for upper GI bleed, anticoagulants held, patient went for EGD. EGD: Large gastric residuals and gastritis. There is a small concern for possible small bowel obstruction although the residual could also be related to gastroparesis found large gastric residues. * Nephrology also consulted on 01/11/17 for renal failure, renal US: no evidence of hydronephrosis. Patient's renal failure is suspected to be due to acute tubular necrosis secondary to cardiac decompensation and the utilization of NSAIDs. In addition the patient's renal function at presentation may not have been a true representation of his renal status due to fluid volume overload. * 01/21/17: Patient has continued to have setbacks and ongoing complications throughout this hospitalization, renal function has continued to worsen, BUN:128 , creatinine:3.13, nephrology has now considered initiating hemodialysis. Patient WBC is now elevated and CXR shows infiltrates, possible aspiration pneumonia, antibiotics have been initiated. Patient examined in room, and daughter at bedside. Patient sitting up in a chair, resting comfortably. Patient endorses he continues to have shortness of breath, he states it was especially difficult to breath over night and he almost called his to come to his bedside because he "did not want to alone". Patient becomes short of breath even with brief conversation. Palliative care was consulted assist with goals of care to provide support/ guidance regarding medical treatment benefit/burden medical treatment options. Function/Cognitive Trajectory Patient has had a progressive decline over the past two years requiring multiple hospitalizations. Recently he has only been able to ambulate with a walker around the house and could not tolerate any further distances. Patient utilizes oxygen at home. . (Alcira Laguerre) Review of Systems Constitutional: COMPLAINS OF: Fatigue, Weight gain, Generalized weakness, Sleep problems, DENIES: Fever, Chills Ears, nose, mouth, throat: COMPLAINS OF: Hoarseness, Epistaxis Respiratory: COMPLAINS OF: Cough, Hemoptysis, Shortness of breath Cardiovascular: COMPLAINS OF: Dyspnea on Exertion, Lower Extremity Edema, DENIES: Chest pain, Palpitations Gastrointestinal: COMPLAINS OF: Diarrhea, Dyspepsia or heartburn, DENIES: Abdominal pain Genitourinary: COMPLAINS OF: Urinary incontinence Musculoskeletal: COMPLAINS OF: Joint pain, Stiffness, Decreased range of motion Integumentary: COMPLAINS OF: Non-healing sores (Alcira Laguerre) Past Family Social History Coded Allergies: penicillin G (Unverified Allergy, Severe, 12/05/16) warfarin (Unverified Allergy, Severe, 12/05/16) Past Medical History CAD, STEMI, s/p recent cardiac cath with bare-metal stent Atrial fibrillation Hypertension COPD Chronic kidney disease stage III Diabetes mellitus Dyslipidemia Urinary retention/Chronic smith Questionable history of CHF Neuropathy Prostate cancer C. Diff colitis Bronchitis . Past Surgical History Recent cardiac catheterization with implantation of bare-metal stent Prostate surgery Appendectomy Removal of nodule from let wrist Tonsillectomy Colonoscopy Cystoscopy . Reported Medications Reported Meds & Active Scripts Active Aspirin Low Strength (Aspirin) 81 Mg Chew 81 Mg PO DAILY 30 Days Atorvastatin (Atorvastatin Calcium) 40 Mg Tab 40 Mg PO HS 30 Days Brilinta (Ticagrelor) 90 Mg Tab 90 Mg PO BID 30 Days Symbicort Inh (Budesonide/Formoterol Fumarate) 160-4.5 Mcg/Act Aero 2 Puff INH Q12HR Furosemide 40 Mg Tab 40 Mg PO DAILY 30 Days Hydralazine HCl 50 Mg Tablet 50 Mg PO Q8HR 30 Days Lactobacillus Acidophilus 1 Billion Cell Tab 1 Tab PO TIDAC Isosorbide Mononitrate ER (Isosorbide Mononitrate) 60 Mg Tab 60 Mg PO DAILY@07 Reported Spiriva Handihaler (Tiotropium Inh) 18 Mcg Cap 18 Mcg INH DAILY 1 capsule = 18 mcg Omeprazole 20 Mg Cap 20 Mg PO AC BREAKFAST Novolog Inj (Insulin Aspart) 100 Unit/Ml Inj 12 SQ TIDAC Novolin N Inj (Insulin Human NPH) 1,000 Unit/10 Ml Vial 22 Units SQ HS Gabapentin 400 Mg Cap 400 Cap PO HS Gabapentin 300 Mg Cap 300 Mg PO DAILY@0600 Proair Respiclick Inh (Albuterol Sulfate) 90 Mcg/Act Aerp 1 Puff INH Q4H PRN . Current Medications Medications (Trade) Dose Ordered Sig/Marcos Route Start Time Stop Time Status Last Admin (D50w (Vial) Inj) 50 ml UNSCH PRN IV PUSH 01/09/17 18:30 (Glucagon Inj) 1 mg UNSCH PRN OTHER 01/09/17 18:30 (NovoLOG SUPPLEMENTAL SCALE) 1 ACHS SLIDING SCALE SQ 01/09/17 21:00 01/21/17 12:33 (Tylenol) 650 mg Q4H PRN PO 01/09/17 18:30 (Zofran Inj) 4 mg Q6H PRN IVP 01/09/17 18:30 01/12/17 22:36 (Compazine Supp) 25 mg Q12H PRN RECTAL 01/09/17 18:30 (Tylenol) 650 mg Q6H PRN PO 01/09/17 18:30 (Percocet 5-325 Mg) 1 tab Q6H PRN PO 01/09/17 18:30 (Percocet 10-325 Mg) 1 tab Q6H PRN PO 01/09/17 18:30 (Morphine Inj) 2 mg Q3H PRN IV PUSH 01/09/17 18:30 (Morphine Inj) 4 mg Q3H PRN IV PUSH 01/09/17 18:30 (Narcan Inj) 0.4 mg UNSCH PRN IV PUSH 01/09/17 18:30 (Ofe-Colace) 1 tab BID PO 01/09/17 21:00 01/20/17 21:38 (Milk Of Magnesia Liq) 30 ml Q12H PRN PO 01/09/17 18:30 (Senokot) 17.2 mg Q12H PRN PO 01/09/17 18:30 (Dulcolax Supp) 10 mg DAILY PRN RECTAL 01/09/17 18:30 (Lactulose Liq) 30 ml DAILY PRN PO 01/09/17 18:30 (Albuterol Neb) 2.5 mg Q2HR NEB PRN INH 01/09/17 18:45 (Symbicort 160-4.5 Inh) 2 puff Q12HR INH 01/09/17 21:00 01/21/17 09:14 (Mucinex Er) 600 mg BID PO 01/09/17 21:00 01/21/17 09:12 (Aspirin Chew) 81 mg DAILY PO 01/09/17 20:00 Future hold 01/21/17 09:13 (Lipitor) 40 mg HS PO 01/09/17 21:00 01/20/17 21:38 (Neurontin) 300 mg DAILY@0600 PO 01/10/17 06:00 01/21/17 06:21 (Apresoline) 50 mg Q8HR PO 01/09/17 22:00 01/21/17 13:23 (Imdur) 60 mg DAILY@07 PO 01/10/17 07:00 01/21/17 06:21 (Lactinex) 1 tab TIDAC PO 01/10/17 08:00 01/21/17 12:29 (Brilinta) 90 mg BID PO 01/09/17 21:00 Future hold 01/21/17 09:13 (Nitrostat Sl) 0.4 mg Q5M PRN SL 01/09/17 18:45 Heparin Sodium/ Dextrose 250 ml @ 16.8 mls/hr TITRATE PRN IV 01/09/17 19:00 Future Hold 01/10/17 16:40 (NS Flush) 2 ml BID IV FLUSH 01/09/17 21:00 01/21/17 09:12 (NS Flush) 2 ml UNSCH PRN IV FLUSH 01/09/17 19:00 (Xanax) 0.25 mg Q8H PRN PO 01/09/17 19:00 01/12/17 23:39 (Bacitracin Oint Packet) 0.9 gm DAILY TOPICAL 01/12/17 09:00 01/20/17 08:36 (Drisdol) 50,000 units Q7D PO 01/12/17 16:00 01/19/17 15:41 (Protonix) 40 mg Q12HR PO 01/14/17 09:00 01/21/17 09:12 (Miralax) 17 gm DAILY PO 01/14/17 09:00 01/20/17 08:35 (Urecholine) 12.5 mg Q8HR PO 01/15/17 14:00 01/21/17 13:23 (Pill Splitter) 1 ea UNSCH PRN OTHER 01/15/17 14:15 (Pill Splitter) 1 ea UNSCH PRN OTHER 01/16/17 09:15 01/19/17 05:57 (Bumex Inj) 2 mg Q12HR IV PUSH 01/17/17 21:00 01/21/17 09:12 (Lopressor) 50 mg Q12HR PO 01/19/17 21:00 01/21/17 09:12 (Deltasone) 30 mg DAILY PO 01/20/17 09:00 01/21/17 09:12 (Levemir Inj) 15 units HS SQ 01/20/17 21:00 01/20/17 21:39 Amiodarone HCl 450 mg/Dextrose 250 ml @ 33 mls/hr Q7H35M IV 01/21/17 09:44 01/21/17 12:31 (Phoslo) 1,334 mg TIDPC PO 01/21/17 13:30 01/21/17 12:30 (Diuril Inj) 500 mg DAILY IV 01/21/17 10:45 01/21/17 13:23 Levofloxacin/ Dextrose 100 ml @ 100 mls/hr Q48H IV 01/21/17 13:00 Metronidazole 100 ml @ 100 mls/hr Q8H IV 01/21/17 14:00 . Family History Father from tuberculosis Substance Use Tobacco: Former smoker, 4 ppd, quit 40 years ago Alcohol: None reported. Prescription med abuse: None reported. Illicits: None reported. . Psychosocial History Patient is originally from [place], he served in the [employer]. He has been for 60 years, he has three sons and one daughter. 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 . Spiritual/Cultural Factors Christianity. . (Alcira Laguerre) Living Will: Copy in medical record Health Care Surrogate: Copy in medical record Durable Power of Shipping Specialist: Never completed Date completed: 01/21/17 . Health Care Surrogate(s): Nataliia Kinney () Alternate HCS Bess Kinney (daughter) Documented care wishes: Standard living will jorje, patient documented he would not desire to be sustained on artificial life support if he had an end stage condition, terminal disease, or was in a persistent vegetative state. . Ethical and Legal Issues None known. . (Alcira Laguerre) Physical Exam Vital Signs Date Time Temp Pulse Resp B/P (MAP) Pulse Ox O2 Delivery O2 Flow Rate FiO2 01/21/17 13:14 60 120/65 01/21/17 12:59 73 109/69 01/21/17 12:44 62 105/79 01/21/17 12:31 62 105/63 01/21/17 12:11 60 110/63 (79) 01/21/17 12:00 97.4 60 18 114/62 (79) 96 01/21/17 11:56 60 114/62 01/21/17 08:50 Nasal Cannula 3.00 Humidified 01/21/17 08:00 97.3 61 18 113/53 (73) 95 01/21/17 07:52 55 01/21/17 07:25 98 Nasal Cannula 3.00 01/21/17 04:00 97.6 64 20 117/68 (84) 98 01/21/17 04:00 Nasal Cannula 3.00 Humidified 01/21/17 00:00 97.4 70 18 127/63 (84) 96 01/21/17 00:00 Nasal Cannula 3.00 01/20/17 20:21 71 01/20/17 20:00 Nasal Cannula 3.00 01/20/17 20:00 97.4 60 20 118/70 (86) 99 01/20/17 18:06 96 Nasal Cannula 3.00 01/20/17 16:44 54 01/20/17 16:00 97.4 69 20 120/69 (86) 96 . 01/21/17 01/22/17 19:00 07:00 Intake Total 100 ml Balance 100 ml IV Total 100 ml . Exam CONSTITUTIONAL/GENERAL: This is an elderly male patient, in no apparent distress. TUBES/LINES/DRAINS: PIV x 2, smith catheter SKIN: No jaundice, rashes, or lesions. Ecchymoses on upper extremities. No wounds seen anteriorly. Skin temperature appropriate. Not diaphoretic. HEAD: Atraumatic. Normocephalic. EYES: Pupils equal and round and reactive. Extraocular motions intact. No scleral icterus. No injection or drainage. Fundi not examined. ENT: Hearing grossly normal. Nose without bleeding or purulent drainage. NECK: Trachea midline. Supple, nontender. CARDIOVASCULAR: Irregular rate and rhythm without murmurs, gallops, or rubs. No JVD. Peripheral pulses symmetric. RESPIRATORY/CHEST: Symmetric, expiratory wheezes. Diminished breath sounds. Breath sounds equal bilaterally. GASTROINTESTINAL: Abdomen firm, protuberant. No guarding. Bowel sounds present. GENITOURINARY: Smith catheter in place. MUSCULOSKELETAL: Extremities without clubbing, cyanosis, or edema. No mottling or clubbing. NEUROLOGICAL: Awake and alert. Motor and sensory grossly within normal limits. Follows commands. Cognitively sharp. Moves all extremities. PSYCHIATRIC: No obvious anxiety/depression. no apparent hallucinations or other psychotic thought process. . [facility] Diagnostic Tests Laboratory Laboratory Tests Test 01/19/17 09:00 01/20/17 08:15 01/21/17 11:35 Blood Urea Nitrogen 128 MG/DL (7-18) 129 MG/DL (7-18) 128 MG/DL (7-18) Creatinine 3.30 MG/DL (0.60-1.30) 3.43 MG/DL (0.60-1.30) 3.13 MG/DL (0.60-1.30) Random Glucose 144 MG/DL (74-106) 210 MG/DL (74-106) 179 MG/DL (74-106) Calcium Level 7.5 MG/DL (8.5-10.1) 7.5 MG/DL (8.5-10.1) 7.5 MG/DL (8.5-10.1) Sodium Level 134 MEQ/L (136-145) 132 MEQ/L (136-145) 133 MEQ/L (136-145) Potassium Level 4.1 MEQ/L (3.5-5.1) 4.7 MEQ/L (3.5-5.1) 3.9 MEQ/L (3.5-5.1) Chloride Level 93 MEQ/L (98-107) 94 MEQ/L (98-107) 92 MEQ/L (98-107) Carbon Dioxide Level 32.3 MEQ/L (21.0-32.0) 29.1 MEQ/L (21.0-32.0) 30.7 MEQ/L (21.0-32.0) Anion Gap 9 MEQ/L (5-15) 9 MEQ/L (5-15) 10 MEQ/L (5-15) Estimat Glomerular Filtration Rate 18 ML/MIN (>89) 17 ML/MIN (>89) 19 ML/MIN (>89) White Blood Count 14.6 TH/MM3 (4.0-11.0) Red Blood Count 3.39 MIL/MM3 (4.50-5.90) Hemoglobin 9.4 GM/DL (13.0-17.0) Hematocrit 29.3 % (39.0-51.0) Mean Corpuscular Volume 86.6 FL (80.0-100.0) Mean Corpuscular Hemoglobin 27.9 PG (27.0-34.0) Mean Corpuscular Hemoglobin Concent 32.2 % (32.0-36.0) Red Cell Distribution Width 15.8 % (11.6-17.2) Platelet Count 185 TH/MM3 (150-450) Mean Platelet Volume 9.6 FL (7.0-11.0) . (Alcira Laguerre) Result Diagram: 01/21/17 1135 01/21/17 1135 Imaging Last 72 hours Impressions Chest X-Ray 01/21/17 0800 Signed Impressions: Service Date/Time: Saturday, January 21, 2017 07:44 - CONCLUSION: 1. Cardiomegaly and findings of vascular congestion without overt failure. Kenji Calderon MD Procedures 01/11/17: EGD (Alcira Laguerre) Patient/Family Conference Present at Family Conference: Nataliia Kinney () and Bess Kinney (daughter) . Family Conference Location: Bedside Issues Discussed: * Palliative care role, purpose, approach * Additional medical, psychosocial, and spiritual history * Patients general health, functional status, and cognitive changes in the months leading up to the current hospitalization * Patient/family understanding of the current medical problems * Patient/family understanding of prognosis * Patients goals of care as best understood from advance directives and/or conversations and/or values * Current medical treatment options and benefits/burdens of those options * Likely scenarios comparing ongoing aggressive care with a transition to comfort measures only * Questions answered to the best of my ability * Palliative care contact information provided (Alcira Laguerre) Assessment and Plan Disease Oriented Problem List: (1) Chronic kidney disease, stage III (moderate) (2) Congestive heart failure (3) Acute on chronic renal failure Symptom Scale: (1) Dyspnea (2) Debility Pertinent Non-Medical Issues Psychosocial: Spiritual: Christianity. Legal: None known. Ethical issues impacting care: None known. . Important Contacts Nataliia Kinney () [phone] Bess Kinney (daughter) [phone] . Prognosis Patient has had a marked decline in health and functional status over the past two years. Patient recently suffered a AZ for a second time requiring PTCA and stenting. The patient is now admitted for COPD exacerbation, CHF, and renal failure. Patient is at a high risk for setbacks and complications due to advanced age and multiple comorbidities. . Code Status: Full Code Plan * Legal decision maker: Patient currently capacitated to make his own decisions at this time but it would beneficial to have shared/supported decision making with his family. Completed living will and health care surrogate form today. Patient designated his as his HCS and his daughter Bess as his alternate HCS. * CODE STATUS: FULL CODE * GOALS: Aggressive. Patient stated today he would want to proceed with dialysis if it became necessary. * SYMPTOM MANAGEMENT: --debility: Secondary to advanced age and multiple comorbidities. PT following and working with the patient as allowable due to his current clinical status. No recommendations at this time. --dyspnea: Due to patient's current clinical status, fluid volume overload, COPD exacerbation, CHF. Patient utilizes oxygen at home. Currently on 3L NC, on symbicort, and albuterol. No recommendations at this time. * Palliative care will continue to follow during hospital course as condition evolves, to assist patient/decision maker with understanding of medical conditions, weighing benefits/burdens of treatment options for clarification of goals of treatment. Additionally will assist with any symptoms of palliative concern. (Alcira Laguerre) Thank you for the opportunity to participate in the care of Mr. Kinney. (Alcira Laguerre) Attestation To help prompt me to consider important information that might be impacting today's encounter and assessment, information from prior notes written by myself or my colleagues may have been "brought forward" into today's note. My signature on this note, however, is an attestation that I personally performed the exam, history, and/or decision-making noted today, and, unless otherwise indicated, the interactions with patient, family, and staff as well as the review of records all occurred today. I also attest that the listed assessment and stated plan reflect my best clinical judgment today based on the combination of historical information, prior notes, and today's exam/ interactions. When time spent is documented, it refers only to time spent today by the signer, or if indicated, combined time spent today by collaborating physician/nurse practitioner. (Alcira Laguerre) Collaborating MD Comments Chart reviewed. Case discussed with palliative care DE ALCHOLIZER. Above note reviewed and I concur. . (Fredy Anglin MD) Alcira Laguerre Jan 21, 2017 14:56 Fredy Anglin MD Jan 27, 2017 12:08
[2017-01-21] MEDS: metroNIDAZOLE 500 MG INJ 100 ML IV SCH ×2 (16:17→22:06)
[2017-01-21] MEDS: ATORVASTATIN 40 MG TAB PO SCH (22:06)
[2017-01-21] MEDS: INSULIN DETEMIR 100 UNITS/ML VIAL SQ SCH (22:09)
[2017-01-22] VITALS (10 sets, daily range): BP systolic 99–140; BP diastolic 54–78; PULSE 51–76; RESP 18–20; TEMP 97.4–98.1; O2SAT 95–99
[2017-01-22] MEDS: AMIODARONE INJ 450 MG in DEXTROSE 5% IN WATE(EXCEL) INJ 241 ML IV SCH ×8 (00:24→23:39)
[2017-01-22 01:03] LABS: BICARBONATE 33.1 MEQ/L (21.0-32.0); MAGNESIUM 2.5 MG/DL (1.5-2.5); POTASSIUM 3.7 MEQ/L (3.5-5.1)
[2017-01-22] MEDS ORDERED: POTASSIUM CHLORIDE 20 MEQ CONTROLLED RELEASE TAB PO ONE (01:45)
[2017-01-22] MEDS: hydrALAZINE HCL 50 MG TAB PO SCH ×3 (06:37→22:20)
[2017-01-22] MEDS: GABAPENTIN 300 MG CAP PO SCH (06:37)
[2017-01-22] MEDS: BETHANECHOL CHL 25 MG TAB PO SCH ×3 (06:37→22:19)
[2017-01-22] MEDS: metroNIDAZOLE 500 MG INJ 100 ML IV SCH ×3 (06:38→22:20)
[2017-01-22] MEDS: ISOSORBIDE MONONITRATE 60 MG TAB PO SCH (06:38)
--- NOTE | 2017-01-22 08:04 | PD.CARD.PN ---
Subjective Subjective Remarks Feels better slept well. No dyspnea or chest pain. Had non-sustained run of V tach Objective Vital Signs / I&O Vital Signs Date Time Temp Pulse Resp B/P (MAP) Pulse Ox O2 Delivery O2 Flow Rate FiO2 01/22/17 04:00 Nasal Cannula 3.00 Humidified 01/22/17 04:00 97.4 61 18 138/78 (98) 98 01/22/17 00:24 61 140/74 01/22/17 00:00 97.9 61 20 140/74 (96) 99 01/22/17 00:00 Nasal Cannula 3.00 Humidified 01/21/17 20:27 64 01/21/17 20:00 97.4 58 20 139/79 (99) 97 01/21/17 20:00 Nasal Cannula 3.00 Humidified 01/21/17 16:00 97.6 56 18 110/60 (77) 99 01/21/17 16:00 Nasal Cannula 3.00 Humidified 01/21/17 13:14 60 120/65 01/21/17 12:59 73 109/69 01/21/17 12:44 62 105/79 01/21/17 12:31 62 105/63 01/21/17 12:11 60 110/63 (79) 01/21/17 12:00 97.4 60 18 114/62 (79) 96 01/21/17 12:00 Nasal Cannula 3.00 Humidified 01/21/17 11:56 60 114/62 01/21/17 08:50 Nasal Cannula 3.00 Humidified I/O 01/21/17 01/21/17 01/21/17 01/22/17 01/22/17 01/22/17 07:00 15:00 23:00 07:00 15:00 23:00 Intake Total 100 ml 951 ml 409 ml Output Total 2130 ml 650 ml 1850 ml Balance -2130 ml 100 ml 301 ml -1441 ml Intake Oral 720 ml 240 ml IV Total 100 ml 231 ml 169 ml Output Urine Total 2130 ml 650 ml 1850 ml # Bowel Movements 2 2 0 Physical Exam Lungs clear irregular rhythm @ 80 Abd soft Laboratory Laboratory Tests Test 01/21/17 11:35 01/22/17 00:12 White Blood Count 14.6 TH/MM3 Red Blood Count 3.39 MIL/MM3 Hemoglobin 9.4 GM/DL Hematocrit 29.3 % Mean Corpuscular Volume 86.6 FL Mean Corpuscular Hemoglobin 27.9 PG Mean Corpuscular Hemoglobin Concent 32.2 % Red Cell Distribution Width 15.8 % Platelet Count 185 TH/MM3 Mean Platelet Volume 9.6 FL Blood Urea Nitrogen 128 MG/DL 131 MG/DL Creatinine 3.13 MG/DL 3.29 MG/DL Random Glucose 179 MG/DL 273 MG/DL Calcium Level 7.5 MG/DL 7.3 MG/DL Sodium Level 133 MEQ/L 131 MEQ/L Potassium Level 3.9 MEQ/L 3.7 MEQ/L Chloride Level 92 MEQ/L 89 MEQ/L Carbon Dioxide Level 30.7 MEQ/L 33.1 MEQ/L Anion Gap 10 MEQ/L 9 MEQ/L Estimat Glomerular Filtration Rate 19 ML/MIN 18 ML/MIN Total Protein 5.8 GM/DL Magnesium Level 2.5 MG/DL Protein Corrected Calcium 8.0 MG/DL Assessment and Plan Problem List: (1) Atrial fibrillation ICD Codes: I48.91 - Atrial fibrillation Status: Chronic Plan: Continue loading dose of amiodarone. (2) Congestive heart failure ICD Codes: I50.9 - Congestive heart failure Status: Acute Assessment and Plan CHF clinically resolved. Will d/c lasix and check BMp in AM. Recheck Cxr and BNP A fib rate controlled on metoprolol will continue Suggest GI consult- will hold breakfast this morning Problem Qualifiers (1) Congestive heart failure: Qualified Codes: I50.23 - Acute on chronic systolic (congestive) heart failure Kenji Rodríguez MD Jan 22, 2017 08:04
[2017-01-22 09:00] LABS: BICARBONATE 31.2 MEQ/L (21.0-32.0); POTASSIUM 3.5 MEQ/L (3.5-5.1)
[2017-01-22] MEDS: BACITRACIN OINT 0.9 GM PKT TOPICAL SCH (09:00)
[2017-01-22] MEDS: POLYETHYLENE GLYCOL 17 GM PKG PO SCH (09:00)
[2017-01-22] MEDS: METOPROLOL TARTRATE 25 MG TAB PO SCH ×2 (09:00→21:00)
[2017-01-22] MEDS: DOCUSATE SODIUM 50 MG/SENNA 8.6 MG TAB PO SCH ×2 (09:00→22:19)
[2017-01-22] MEDS: LACTOBACILLUS ACIDOPHILUS TAB PO SCH ×3 (09:15→18:02)
[2017-01-22] MEDS: TICAGRELOR 90 MG TAB PO SCH ×2 (09:15→22:20)
[2017-01-22] MEDS: ASPIRIN 81 MG CHEW TAB PO SCH (09:15)
[2017-01-22] MEDS: BUMETANIDE INJ 1 MG/4 ML VIAL IV PUSH SCH ×2 (09:15→22:19)
[2017-01-22] MEDS: PANTOPRAZOLE SOD 40 MG DELAYED RELEASE TAB PO SCH ×2 (09:15→22:19)
[2017-01-22] MEDS: guaiFENesin E.R. 600 MG TAB PO SCH ×2 (09:15→22:19)
[2017-01-22] MEDS: SODIUM CHLORIDE 0.9% FLUSH 10 ML FLUSH IV FLUSH SCH ×2 (09:15→22:21)
[2017-01-22] MEDS: CALCIUM ACETATE 667 MG CAP PO SCH ×3 (09:16→18:02)
[2017-01-22] MEDS: predniSONE 20 MG TAB PO SCH (09:16)
[2017-01-22] MEDS: INSULIN ASPART SUPPLEMENTAL SCALE SQ SCH ×4 (09:18→21:00)
[2017-01-22] MEDS: CHLOROTHIAZIDE SOD 500 MG VIAL IV SCH (09:18)
[2017-01-22] MEDS: BUDESONIDE-FORMOTEROL 160/4.5 MCG INHALER INH SCH ×2 (09:19→22:21)
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
--- NOTE | 2017-01-22 10:48 | HHI.PR ---
Subjective Remarks Follow up for Afib, CHF, acute on chronic renal failure and possible aspiration pneumonia. Patient is currently doing well. He is much more alert today. Denies any chest pain, shortness of breath, fever or chills. He slept well. Objective Vitals Vital Signs Date Time Temp Pulse Resp B/P (MAP) Pulse Ox O2 Delivery O2 Flow Rate FiO2 01/22/17 08:39 55 01/22/17 08:30 Nasal Cannula 3.00 Humidified 01/22/17 08:04 98.1 51 18 99/58 (72) 96 01/22/17 07:07 52 01/22/17 04:00 Nasal Cannula 3.00 Humidified 01/22/17 04:00 97.4 61 18 138/78 (98) 98 01/22/17 00:24 61 140/74 01/22/17 00:00 97.9 61 20 140/74 (96) 99 01/22/17 00:00 Nasal Cannula 3.00 Humidified 01/21/17 20:27 64 01/21/17 20:00 97.4 58 20 139/79 (99) 97 01/21/17 20:00 Nasal Cannula 3.00 Humidified 01/21/17 16:00 97.6 56 18 110/60 (77) 99 01/21/17 16:00 Nasal Cannula 3.00 Humidified 01/21/17 13:14 60 120/65 01/21/17 12:59 73 109/69 01/21/17 12:44 62 105/79 01/21/17 12:31 62 105/63 01/21/17 12:11 60 110/63 (79) 01/21/17 12:00 97.4 60 18 114/62 (79) 96 01/21/17 12:00 Nasal Cannula 3.00 Humidified 01/21/17 11:56 60 114/62 I/O 01/21/17 01/21/17 01/21/17 01/22/17 01/22/17 01/22/17 07:00 15:00 23:00 07:00 15:00 23:00 Intake Total 100 ml 951 ml 409 ml Output Total 2130 ml 650 ml 1850 ml Balance -2130 ml 100 ml 301 ml -1441 ml Intake Oral 720 ml 240 ml IV Total 100 ml 231 ml 169 ml Output Urine Total 2130 ml 650 ml 1850 ml # Bowel Movements 2 2 0 Result Diagram: 01/21/17 1135 01/22/17 0715 Imaging Last Impressions Chest X-Ray 01/21/17 0800 Signed Impressions: Service Date/Time: Saturday, January 21, 2017 07:44 - CONCLUSION: 1. Cardiomegaly and findings of vascular congestion without overt failure. Kenji Calderon MD Gastric Emptying Nuclear Medicine 01/14/17 0000 Signed Impressions: Service Date/Time: Saturday, January 14, 2017 11:18 - CONCLUSION: 1. Markedly prolonged gastric emptying with no response to Reglan Kenji Calderon MD Abdomen X-Ray 01/12/17 0000 Signed Impressions: Service Date/Time: Thursday, January 12, 2017 10:07 - CONCLUSION: 1. No acute abdominal abnormality is identified. 2. Severe atherosclerotic disease. Storm Allen MD Renal Ultrasound 01/11/17 0000 Signed Impressions: Service Date/Time: Wednesday, January 11, 2017 23:22 - CONCLUSION: No evidence of hydronephrosis. 2.8 cm left renal cyst. Clemente Matute MD Lower Extremity Ultrasound 01/10/17 0000 Signed Impressions: Service Date/Time: December 08:44 - CONCLUSION: 1. Negative left lower extremity DVT study. A Clay's cyst measuring 2.5 x 4.7 x 1 cm. Carlitos Corona MD Toe X-Ray 01/09/17 0000 Signed Impressions: Service Date/Time: Monday, January 09, 2017 17:40 - CONCLUSION: Soft tissue swelling third digit without bony destruction. Wilfredo Maddox MD FACR Objective Remarks GENERAL: Wakes up on verbal commands, somewhat lethargic, NAD. SKIN: Warm and dry. HEAD: Normocephalic. EYES: No scleral icterus. No injection or drainage. NECK: Supple, trachea midline. No JVD or lymphadenopathy. CARDIOVASCULAR: Regular rate and rhythm without murmurs, gallops, or rubs. RESPIRATORY: Breath sounds equal bilaterally. No accessory muscle use. GASTROINTESTINAL: Abdomen soft, non-tender, nondistended. MUSCULOSKELETAL: No cyanosis. 2+ bilateral lower ext edema. BACK: Nontender without obvious deformity. No CVA tenderness. Procedures 01/10/2017 Echo Normal left ventricular size. Mild concentric left ventricular hypertrophy. The left ventricular systolic function is hyperdynamic with an estimated ejection fraction in the range of 65- 70%. This study was not technically sufficient to allow for evaluation of left ventricular diastolic function. The right ventricle is moderately dilated. The right ventricular systoilc function is mildly decreased. The left atrial size is moderately dilated. The right atrial size is moderate to severely dilated. The interatrial septum not well visualized. Mild thickening of the mitral valve leaflets. [id number] mitral valve regurgitation. Trace aortic valve regurgitation. No aortic valve stenosis. Annular dilatation of the tricuspid valve. There is moderate to severe tricuspid valve regurgitation. There is estimated moderate pulmonary hypertension present (range 50-60 mmHg). The inferior vena cava was not well visualized. A prominent epicardial fat pad is present. 01/11/2017 EGD Large gastric residuals Gastritis A/P Problem List: (1) COPD exacerbation ICD Code: J44.1 - Chronic obstructive pulmonary disease with (acute) exacerbation Status: Acute (2) Congestive heart failure ICD Code: I50.9 - Congestive heart failure Status: Acute (3) Infection of toe ICD Code: L08.9 - Local infection of the skin and subcutaneous tissue, unspecified Status: Acute (4) Shortness of breath dyspnea ICD Code: R06.02 - Shortness of breath dyspnea Status: Acute (5) Hypertension ICD Code: I10 - Hypertension Status: Chronic (6) Chronic obstructive pulmonary disease ICD Code: J44.9 - Chronic obstructive pulmonary disease Status: Chronic (7) Hyperlipidemia ICD Code: E78.5 - Hyperlipidemia Status: Chronic (8) Chronic kidney disease, stage III (moderate) ICD Code: N18.3 - Chronic kidney disease, stage III (moderate) Status: Acute (9) Atrial fibrillation ICD Code: I48.91 - Atrial fibrillation Status: Chronic (10) DM (diabetes mellitus) ICD Code: E11.9 - DM (diabetes mellitus) Status: Acute (11) NSTEMI (non-ST elevated myocardial infarction) ICD Code: I21.4 - Non-ST elevation (NSTEMI) myocardial infarction (12) UTI (lower urinary tract infection) ICD Code: N39.0 - UTI (lower urinary tract infection) Status: Acute (13) Anemia ICD Code: D64.9 - Anemia Status: Acute (14) Diabetes ICD Code: E11.9 - Diabetes mellitus Status: Acute Assessment and Plan This is an 86-year-old male with past medical history significant for coronary artery disease status post recent stenting with implantation of bare- metal stent s/p discharge 01/01/17, COPD, questionable CHF, diabetes, atrial fibrillation, neuropathy, GERD and history of prostate cancer who presented to [facility] ED on 01/09/2017 with complaints of shortness of breath and chest discomfort for 2 days prior to this admission. Patient was found to have acute on chronic kidney disease. On admission, his troponins were significantly elevated. - Probable aspiration pneumonia - Patient's CBC shows WBC increased from 9.7 --> 14.6, having productive cough. - CXR image reviewed by me shows CHF congestion as well as possibly infiltrates on the right lower lung. - Continue Levaquin IV adjusted for renal function as well as IV Flagyl. - Patient is encouraged to eat sitting upright. D/W RN as well. - If he remains afebrile, we'll switch IV antibiotics to by mouth tomorrow. - Acute diastolic congestive heart failure - Coronary artery disease with recent bare metal stent placement. - Elevated troponins were likely related to NSTEMI from previous admission. - BNP > 400. LVEF 65-70%. - Continue aspirin 81 mg, Ticagrelor 90mg BID. - Currently on Bumex 2mg IV Q12hrs. Nephrology added Diuril. - Continue Metoprolol Q12hrs, Imdur 60mg Qday, Lipitor 40mg QHS. - Acute kidney injury - Chronic kidney disease - baseline creatinine 1.5. - Creatinine 3.30 --> 3.43 --> 3.13 --> 3.26, 3.29 - Appreciate nephrology input. Possible dialysis if creatinine continues to worsen. - Continue Bumex 2mg Q12hrs IV and Diuril. - Probable upper GI bleed - EGD did not show any evidence of active bleeding site. - Hgb 9.4. - Continue PPI. - Diabetes mellitus type 2 - Continue Levemir 15 units QHS, sliding scale insulin. - Incidental finding of 1 cm irregular nodule right upper lobe - CT chest 12/23/16 - Recommend follow-up CT at approximately 3, 9 and 24 months and or contrast enhanced CT, PET and/or biopsy Full code. Will consider heparin SQ which will increase the risk of bleeding since patient is also on aspirin and Ticagrelor. Problem Qualifiers (1) Congestive heart failure: Qualified Codes: I50.23 - Acute on chronic systolic (congestive) heart failure Mark Monzon DO Jan 22, 2017 10:48 am
[2017-01-22] MEDS: INSULIN DETEMIR 100 UNITS/ML VIAL SQ SCH (21:00)
[2017-01-22] MEDS: ALPRAZolam 0.25 MG TAB PO PRN (22:20)
[2017-01-22] MEDS: ATORVASTATIN 40 MG TAB PO SCH (22:20)
[2017-01-23] VITALS (11 sets, daily range): BP systolic 105–136; BP diastolic 58–73; PULSE 49–91; RESP 16–20; TEMP 97.2–100; O2SAT 94–100
[2017-01-23] MEDS: BETHANECHOL CHL 25 MG TAB PO SCH ×3 (05:54→22:00)
[2017-01-23] MEDS: GABAPENTIN 300 MG CAP PO SCH (05:54)
[2017-01-23] MEDS: PILL SPLITTER OTHER PRN (05:54)
[2017-01-23] MEDS: ISOSORBIDE MONONITRATE 60 MG TAB PO SCH (05:54)
[2017-01-23] MEDS: hydrALAZINE HCL 50 MG TAB PO SCH ×3 (05:54→22:00)
[2017-01-23] MEDS: metroNIDAZOLE 500 MG INJ 100 ML IV SCH ×3 (05:55→22:00)
[2017-01-23] MEDS: AMIODARONE INJ 450 MG in DEXTROSE 5% IN WATE(EXCEL) INJ 241 ML IV SCH ×4 (06:03→23:53)
[2017-01-23 07:30] LABS: BICARBONATE 33.1 MEQ/L (21.0-32.0); POTASSIUM 3.1 MEQ/L (3.5-5.1)
[2017-01-23] MEDS: INSULIN ASPART SUPPLEMENTAL SCALE SQ SCH ×3 (08:00→17:00)
--- NOTE | 2017-01-23 08:23 | PD.CARD.PN ---
Subjective Subjective Remarks breathing improved Objective Vital Signs / I&O Vital Signs Date Time Temp Pulse Resp B/P (MAP) Pulse Ox O2 Delivery O2 Flow Rate FiO2 01/23/17 06:03 66 103/59 01/23/17 04:00 97.2 60 18 109/60 (76) 99 01/23/17 04:00 Nasal Cannula 3.00 01/23/17 00:00 97.8 55 18 135/73 (93) 97 01/23/17 00:00 Nasal Cannula 3.00 01/22/17 20:00 52 01/22/17 20:00 Nasal Cannula 3.00 01/22/17 20:00 97.5 51 20 133/59 (83) 98 01/22/17 18:10 95 Nasal Cannula 3.00 01/22/17 16:04 97.5 63 18 101/54 (70) 98 01/22/17 16:00 Nasal Cannula 3.00 Humidified 01/22/17 15:15 55 103/56 01/22/17 12:04 97.4 76 18 104/57 (73) 95 01/22/17 12:00 Nasal Cannula 3.00 Humidified 01/22/17 11:02 98 Nasal Cannula 3.00 01/22/17 08:39 55 01/22/17 08:30 Nasal Cannula 3.00 Humidified I/O 01/22/17 01/22/17 01/22/17 01/23/17 01/23/17 01/23/17 07:00 15:00 23:00 07:00 15:00 23:00 Intake Total 409 ml 100 ml 576 ml 1246 ml Output Total 1850 ml 1000 ml 2050 ml Balance -1441 ml 100 ml -424 ml -804 ml Intake Oral 240 ml 280 ml 820 ml IV Total 169 ml 100 ml 296 ml 426 ml Output Urine Total 1850 ml 1000 ml 2050 ml # Bowel Movements 0 0 1 Physical Exam GENERAL: Well-nourished, well-developed patient in no apparent distress. NECK: No JVD. No carotid bruit. CARDIOVASCULAR: IR IR S1/S2 no murmur, rub, or gallop. RESPIRATORY: No accessory muscle use. rales to auscultation. Breath sounds equal bilaterally. GASTROINTESTINAL: Abdomen soft, non-tender, nondistended. MUSCULOSKELETAL: Extremities without clubbing, cyanosis, or edema. Laboratory Laboratory Tests Test 01/23/17 06:18 Blood Urea Nitrogen 128 MG/DL Creatinine 3.38 MG/DL Random Glucose 221 MG/DL Albumin 2.7 GM/DL Calcium Level 7.9 MG/DL Phosphorus Level 3.8 MG/DL Sodium Level 131 MEQ/L Potassium Level 3.1 MEQ/L Chloride Level 88 MEQ/L Carbon Dioxide Level 33.1 MEQ/L Anion Gap 10 MEQ/L Estimat Glomerular Filtration Rate 17 ML/MIN Assessment and Plan Problem List: (1) Atrial fibrillation ICD Codes: I48.91 - Atrial fibrillation Status: Chronic (2) Congestive heart failure ICD Codes: I50.9 - Congestive heart failure Status: Acute Assessment and Plan CHF - now hypokalemic, replete. BNP and chest x-ray pending CAD - doing well NSVT - none further since 1648 yesterday Renal function stable Problem Qualifiers (1) Congestive heart failure: Qualified Codes: I50.23 - Acute on chronic systolic (congestive) heart failure Kory Jacobs Jan 23, 2017 08:23
[2017-01-23] MEDS ORDERED: POTASSIUM CHLORIDE 10 MEQ CONTROLLED RELEASE TAB PO ONE (08:30)
[2017-01-23] MEDS: SODIUM CHLORIDE 0.9% FLUSH 10 ML FLUSH IV FLUSH SCH ×2 (09:00→21:00)
[2017-01-23] MEDS: CHLOROTHIAZIDE SOD 500 MG VIAL IV SCH (09:00)
[2017-01-23] MEDS: BUDESONIDE-FORMOTEROL 160/4.5 MCG INHALER INH SCH ×2 (09:00→21:00)
[2017-01-23] MEDS: BUMETANIDE INJ 1 MG/4 ML VIAL IV PUSH SCH ×2 (09:00→21:00)
[2017-01-23] MEDS: DOCUSATE SODIUM 50 MG/SENNA 8.6 MG TAB PO SCH ×2 (09:55→21:00)
[2017-01-23] MEDS: POLYETHYLENE GLYCOL 17 GM PKG PO SCH (09:55)
[2017-01-23] MEDS: POTASSIUM CHLOR 20 MEQ PREMIX 100 ML IV SCH ×2 (09:55→11:00)
--- NOTE | 2017-01-23 09:55 | HHI.PR ---
Subjective Remarks Follow up for Afib, CHF, acute on chronic renal failure and possible aspiration pneumonia. Patient is currently doing well. However he complains of acid reflux. No fever or chills. Objective Vitals Vital Signs Date Time Temp Pulse Resp B/P (MAP) Pulse Ox O2 Delivery O2 Flow Rate FiO2 01/23/17 08:04 97.3 65 20 117/58 (77) 98 01/23/17 06:03 66 103/59 01/23/17 04:00 97.2 60 18 109/60 (76) 99 01/23/17 04:00 Nasal Cannula 3.00 01/23/17 00:00 97.8 55 18 135/73 (93) 97 01/23/17 00:00 Nasal Cannula 3.00 01/22/17 20:00 52 01/22/17 20:00 Nasal Cannula 3.00 01/22/17 20:00 97.5 51 20 133/59 (83) 98 01/22/17 18:10 95 Nasal Cannula 3.00 01/22/17 16:04 97.5 63 18 101/54 (70) 98 01/22/17 16:00 Nasal Cannula 3.00 Humidified 01/22/17 15:15 55 103/56 01/22/17 12:04 97.4 76 18 104/57 (73) 95 01/22/17 12:00 Nasal Cannula 3.00 Humidified 01/22/17 11:02 98 Nasal Cannula 3.00 I/O 01/22/17 01/22/17 01/22/17 01/23/17 01/23/17 01/23/17 07:00 15:00 23:00 07:00 15:00 23:00 Intake Total 409 ml 100 ml 576 ml 1246 ml Output Total 1850 ml 1000 ml 2050 ml Balance -1441 ml 100 ml -424 ml -804 ml Intake Oral 240 ml 280 ml 820 ml IV Total 169 ml 100 ml 296 ml 426 ml Output Urine Total 1850 ml 1000 ml 2050 ml # Bowel Movements 0 0 1 Result Diagram: 01/21/17 1135 01/23/17 0618 Imaging Last Impressions Chest X-Ray 01/21/17 0800 Signed Impressions: Service Date/Time: Saturday, January 21, 2017 07:44 - CONCLUSION: 1. Cardiomegaly and findings of vascular congestion without overt failure. Kenji Calderon MD Gastric Emptying Nuclear Medicine 01/14/17 0000 Signed Impressions: Service Date/Time: Saturday, January 14, 2017 11:18 - CONCLUSION: 1. Markedly prolonged gastric emptying with no response to Reglan Kenji Calderon MD Abdomen X-Ray 01/12/17 0000 Signed Impressions: Service Date/Time: Thursday, January 12, 2017 10:07 - CONCLUSION: 1. No acute abdominal abnormality is identified. 2. Severe atherosclerotic disease. Storm Allen MD Renal Ultrasound 01/11/17 0000 Signed Impressions: Service Date/Time: Wednesday, January 11, 2017 23:22 - CONCLUSION: No evidence of hydronephrosis. 2.8 cm left renal cyst. Clemente Matute MD Lower Extremity Ultrasound 01/10/17 0000 Signed Impressions: Service Date/Time: December 08:44 - CONCLUSION: 1. Negative left lower extremity DVT study. A Clay's cyst measuring 2.5 x 4.7 x 1 cm. Carlitos Corona MD Toe X-Ray 01/09/17 0000 Signed Impressions: Service Date/Time: Monday, January 09, 2017 17:40 - CONCLUSION: Soft tissue swelling third digit without bony destruction. Wilfredo Maddox MD FACR Objective Remarks GENERAL: Wakes up on verbal commands, somewhat lethargic, NAD. SKIN: Warm and dry. HEAD: Normocephalic. EYES: No scleral icterus. No injection or drainage. NECK: Supple, trachea midline. No JVD or lymphadenopathy. CARDIOVASCULAR: Regular rate and rhythm without murmurs, gallops, or rubs. RESPIRATORY: Breath sounds equal bilaterally. No accessory muscle use. GASTROINTESTINAL: Abdomen soft, non-tender, nondistended. MUSCULOSKELETAL: No cyanosis. 2+ bilateral lower ext edema. BACK: Nontender without obvious deformity. No CVA tenderness. Procedures 01/10/2017 Echo Normal left ventricular size. Mild concentric left ventricular hypertrophy. The left ventricular systolic function is hyperdynamic with an estimated ejection fraction in the range of 65- 70%. This study was not technically sufficient to allow for evaluation of left ventricular diastolic function. The right ventricle is moderately dilated. The right ventricular systoilc function is mildly decreased. The left atrial size is moderately dilated. The right atrial size is moderate to severely dilated. The interatrial septum not well visualized. Mild thickening of the mitral valve leaflets. Upje-sj-xuvlehti mitral valve regurgitation. Trace aortic valve regurgitation. No aortic valve stenosis. Annular dilatation of the tricuspid valve. There is moderate to severe tricuspid valve regurgitation. There is estimated moderate pulmonary hypertension present (range 50-60 mmHg). The inferior vena cava was not well visualized. A prominent epicardial fat pad is present. 01/11/2017 EGD Large gastric residuals Gastritis A/P Problem List: (1) COPD exacerbation ICD Code: J44.1 - Chronic obstructive pulmonary disease with (acute) exacerbation Status: Acute (2) Congestive heart failure ICD Code: I50.9 - Congestive heart failure Status: Acute (3) Infection of toe ICD Code: L08.9 - Local infection of the skin and subcutaneous tissue, unspecified Status: Acute (4) Shortness of breath dyspnea ICD Code: R06.02 - Shortness of breath dyspnea Status: Acute (5) Hypertension ICD Code: I10 - Hypertension Status: Chronic (6) Chronic obstructive pulmonary disease ICD Code: J44.9 - Chronic obstructive pulmonary disease Status: Chronic (7) Hyperlipidemia ICD Code: E78.5 - Hyperlipidemia Status: Chronic (8) Chronic kidney disease, stage III (moderate) ICD Code: N18.3 - Chronic kidney disease, stage III (moderate) Status: Acute (9) Atrial fibrillation ICD Code: I48.91 - Atrial fibrillation Status: Chronic (10) DM (diabetes mellitus) ICD Code: E11.9 - DM (diabetes mellitus) Status: Acute (11) NSTEMI (non-ST elevated myocardial infarction) ICD Code: I21.4 - Non-ST elevation (NSTEMI) myocardial infarction (12) UTI (lower urinary tract infection) ICD Code: N39.0 - UTI (lower urinary tract infection) Status: Acute (13) Anemia ICD Code: D64.9 - Anemia Status: Acute (14) Diabetes ICD Code: E11.9 - Diabetes mellitus Status: Acute Assessment and Plan This is an 86-year-old male with past medical history significant for coronary artery disease status post recent stenting with implantation of bare- metal stent s/p discharge 01/01/17, COPD, questionable CHF, diabetes, atrial fibrillation, neuropathy, GERD and history of prostate cancer who presented to [facility] ED on 01/09/2017 with complaints of shortness of breath and chest discomfort for 2 days prior to this admission. Patient was found to have acute on chronic kidney disease. On admission, his troponins were significantly elevated. - Probable aspiration pneumonia - Patient's CBC shows WBC increased from 9.7 --> 14.6, having productive cough. - CXR image reviewed by me shows CHF congestion as well as possibly infiltrates on the right lower lung. - Continue Levaquin IV adjusted for renal function as well as IV Flagyl. - Patient is encouraged to eat sitting upright. D/W RN as well. - Switch IV antibiotics to Levaquin and Flagyl by mouth. - Acute diastolic congestive heart failure - Coronary artery disease with recent bare metal stent placement. - Elevated troponins were likely related to NSTEMI from previous admission. - BNP > 400. LVEF 65-70%. - Continue aspirin 81 mg, Ticagrelor 90mg BID. - Currently on Bumex 2mg IV Q12hrs. Nephrology added Diuril. - Continue Metoprolol Q12hrs, Imdur 60mg Qday, Lipitor 40mg QHS. - Acute kidney injury - Chronic kidney disease - baseline creatinine 1.5. - Hypokalemia - K+ 3.1. Patient could not tolerate IV KCL. Will place him on KCL 10mEQ PO Q8hrs. - Creatinine 3.30 --> 3.43 --> 3.13 --> 3.26, 3.29 - Appreciate nephrology input. Possible dialysis if creatinine continues to worsen. - Continue Bumex 2mg Q12hrs IV and Diuril. - Probable upper GI bleed - EGD did not show any evidence of active bleeding site. - Hgb 9.4. - Continue PPI. - Diabetes mellitus type 2 - Continue Levemir 15 units QHS, sliding scale insulin. - Incidental finding of 1 cm irregular nodule right upper lobe - CT chest 12/23/16 - Recommend follow-up CT at approximately 3, 9 and 24 months and or contrast enhanced CT, PET and/or biopsy Full code. Heparin for DVT while in the hospital. Problem Qualifiers (1) Congestive heart failure: Qualified Codes: I50.23 - Acute on chronic systolic (congestive) heart failure Mark Monzon DO Jan 23, 2017 9:55 am
[2017-01-23] MEDS: LACTOBACILLUS ACIDOPHILUS TAB PO SCH ×3 (09:56→18:02)
[2017-01-23] MEDS: METOPROLOL TARTRATE 25 MG TAB PO SCH ×2 (09:56→21:00)
[2017-01-23] MEDS: guaiFENesin E.R. 600 MG TAB PO SCH ×2 (09:56→21:00)
[2017-01-23] MEDS: TICAGRELOR 90 MG TAB PO SCH ×2 (09:57→21:00)
[2017-01-23] MEDS: predniSONE 20 MG TAB PO SCH (09:57)
[2017-01-23] MEDS: ASPIRIN 81 MG CHEW TAB PO SCH (09:57)
[2017-01-23] MEDS: CALCIUM ACETATE 667 MG CAP PO SCH ×3 (09:57→18:03)
[2017-01-23] MEDS: PANTOPRAZOLE SOD 40 MG DELAYED RELEASE TAB PO SCH ×2 (09:58→21:00)
[2017-01-23] MEDS ORDERED: RESP: ALBUTEROL 2.5 MG/IPRATROPIUM 0.5 MG NEB (PRN) NEB (10:00)
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
[2017-01-23] MEDS: BACITRACIN OINT 0.9 GM PKT TOPICAL SCH (12:47)
[2017-01-23] MEDS: LEVOFLOXACIN 500 MG PREMIX INJ 100 ML IV SCH (12:48)
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
[2017-01-23] MEDS: ATORVASTATIN 40 MG TAB PO SCH (21:00)
[2017-01-23] MEDS: HEPARIN SODIUM - SQ 10,000 UNITS/ML VIAL SQ SCH (21:00)
[2017-01-23] MEDS: POTASSIUM CHLORIDE 10 MEQ CONTROLLED RELEASE TAB PO SCH (22:00)
[2017-01-24] VITALS (13 sets, daily range): BP systolic 121–140; BP diastolic 59–72; PULSE 48–90; RESP 16–20; TEMP 97.1–98; O2SAT 95–99
[2017-01-24] MEDS: INSULIN DETEMIR 100 UNITS/ML VIAL SQ SCH ×2 (00:08→21:00)
[2017-01-24] MEDS: INSULIN ASPART SUPPLEMENTAL SCALE SQ SCH ×5 (00:08→21:00)
[2017-01-24] MEDS: oxyCODONE/ACETAMINOPHEN 10 MG/325 MG TAB PO PRN ×2 (02:20→23:35)
[2017-01-24] MEDS: AMIODARONE INJ 450 MG in DEXTROSE 5% IN WATE(EXCEL) INJ 241 ML IV SCH ×2 (05:21)
[2017-01-24] MEDS: POTASSIUM CHLORIDE 10 MEQ CONTROLLED RELEASE TAB PO SCH ×3 (05:22→21:40)
[2017-01-24] MEDS: ISOSORBIDE MONONITRATE 60 MG TAB PO SCH (05:22)
[2017-01-24] MEDS: GABAPENTIN 300 MG CAP PO SCH (05:22)
[2017-01-24] MEDS: metroNIDAZOLE 500 MG INJ 100 ML IV SCH ×3 (05:22→21:40)
[2017-01-24] MEDS: hydrALAZINE HCL 50 MG TAB PO SCH ×3 (05:22→21:39)
[2017-01-24] MEDS: BETHANECHOL CHL 25 MG TAB PO SCH ×3 (05:22→21:38)
--- NOTE | 2017-01-24 07:31 | PD.CARD.PN ---
Subjective Subjective Remarks Dyspneic. Denies chest pain. Objective Vital Signs / I&O Vital Signs Date Time Temp Pulse Resp B/P (MAP) Pulse Ox O2 Delivery O2 Flow Rate FiO2 01/24/17 04:05 65 01/24/17 04:00 97.4 63 17 126/71 (89) 99 01/24/17 00:47 61 01/24/17 00:25 98 Nasal Cannula 2.00 01/24/17 00:00 97.5 58 16 140/69 (92) 95 01/24/17 00:00 Nasal Cannula 2.00 Humidified 01/23/17 23:53 64 126/52 01/23/17 20:14 49 01/23/17 20:00 Nasal Cannula 2.00 Humidified 01/23/17 20:00 100.0 91 16 105/66 (79) 94 01/23/17 17:37 99 Nasal Cannula 2.00 01/23/17 16:04 97.4 62 20 124/66 (85) 98 01/23/17 12:04 97.2 67 20 113/65 (81) 99 01/23/17 11:25 98 Nasal Cannula 2.00 01/23/17 08:05 53 01/23/17 08:04 97.3 65 20 117/58 (77) 98 I/O 01/23/17 01/23/17 01/23/17 01/24/17 01/24/17 01/24/17 07:00 15:00 23:00 07:00 15:00 23:00 Intake Total 1246 ml 460 ml 1204 ml Output Total 2050 ml 1300 ml 2050 ml Balance -804 ml -840 ml -846 ml Intake Oral 820 ml 360 ml 780 ml IV Total 426 ml 100 ml 424 ml Output Urine Total 2050 ml 1300 ml 2050 ml # Bowel Movements 1 2 3 Physical Exam Lungs diffuse wheezing and rhonchi irregular rhythm @ 80 Abd soft Assessment and Plan Problem List: (1) Atrial fibrillation ICD Codes: I48.91 - Atrial fibrillation Status: Chronic Plan: Rhythm stable. Will stop IV amiodarone and continue with p.o. amio 200 mg daily Wheezing. Will try short course of solumedrol (2) Congestive heart failure ICD Codes: I50.9 - Congestive heart failure Status: Acute Assessment and Plan CHF clinically resolved. Will d/c lasix and check BMp in AM. Recheck Cxr and BNP A fib rate controlled on metoprolol will continue Suggest GI consult- will hold breakfast this morning Problem Qualifiers (1) Congestive heart failure: Qualified Codes: I50.23 - Acute on chronic systolic (congestive) heart failure Kenji Rodríguez MD Jan 24, 2017 07:31
[2017-01-24 08:50] LABS: HEMATOCRIT 28.4 % (39.0-51.0); MEAN CELL VOLUME 85.9 FL (80.0-100.0); MEAN CORPUSCULAR HEMOGLOBIN 28.5 PG (27.0-34.0); MEAN CORPUSCULAR HGB CONC 33.1 % (32.0-36.0); PLATELET COUNT 161 TH/MM3 (150-450); RED BLOOD COUNT 3.31 MIL/MM3 (4.50-5.90); RED CELL DISTRIBUTION WIDTH 15.9 % (11.6-17.2); REVIEW FLAG FINAL; WHITE BLOOD COUNT 17.1 TH/MM3 (4.0-11.0)
[2017-01-24] MEDS: METOPROLOL TARTRATE 25 MG TAB PO SCH ×2 (09:00→21:38)
[2017-01-24] MEDS: PANTOPRAZOLE SOD 40 MG DELAYED RELEASE TAB PO SCH ×2 (09:12→21:41)
[2017-01-24] MEDS: guaiFENesin E.R. 600 MG TAB PO SCH ×2 (09:12→21:39)
[2017-01-24] MEDS: DOCUSATE SODIUM 50 MG/SENNA 8.6 MG TAB PO SCH ×2 (09:12→21:00)
[2017-01-24] MEDS: LACTOBACILLUS ACIDOPHILUS TAB PO SCH ×3 (09:12→17:21)
[2017-01-24] MEDS: CALCIUM ACETATE 667 MG CAP PO SCH ×3 (09:12→17:21)
[2017-01-24] MEDS: AMIODARONE 200 MG TAB PO SCH (09:12)
[2017-01-24] MEDS: POLYETHYLENE GLYCOL 17 GM PKG PO SCH (09:12)
[2017-01-24] MEDS: TICAGRELOR 90 MG TAB PO SCH ×2 (09:12→21:38)
[2017-01-24] MEDS: HEPARIN SODIUM - SQ 10,000 UNITS/ML VIAL SQ SCH ×2 (09:13→21:36)
[2017-01-24] MEDS: predniSONE 20 MG TAB PO SCH (09:13)
[2017-01-24] MEDS: ASPIRIN 81 MG CHEW TAB PO SCH (09:13)
[2017-01-24] MEDS: BUMETANIDE INJ 1 MG/4 ML VIAL IV PUSH SCH ×2 (09:14→21:39)
[2017-01-24] MEDS: methylPREDNISolone SOD SUCC 40 MG/1 ML VIAL IV PUSH SCH ×2 (09:14→21:39)
[2017-01-24] MEDS: SODIUM CHLORIDE 0.9% FLUSH 10 ML FLUSH IV FLUSH SCH ×2 (09:15→21:41)
[2017-01-24] MEDS: BUDESONIDE-FORMOTEROL 160/4.5 MCG INHALER INH SCH ×2 (09:16→21:00)
[2017-01-24] MEDS: CHLOROTHIAZIDE SOD 500 MG VIAL IV SCH (09:18)
[2017-01-24] MEDS: BACITRACIN OINT 0.9 GM PKT TOPICAL SCH (09:24)
[2017-01-24] MEDS: RESP: ALBUTEROL 2.5 MG/IPRATROPIUM 0.5 MG NEB (SCH) NEB ×4 (10:18→19:07)
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
[2017-01-24 21:07] LABS: BICARBONATE 32.6 MEQ/L (21.0-32.0); POTASSIUM 3.6 MEQ/L (3.5-5.1)
[2017-01-24] MEDS: PILL SPLITTER OTHER PRN (21:38)
[2017-01-24] MEDS: ATORVASTATIN 40 MG TAB PO SCH (21:39)
[2017-01-25] VITALS (10 sets, daily range): BP systolic 117–134; BP diastolic 63–71; PULSE 51–83; RESP 16–20; TEMP 97.1–97.8; O2SAT 95–99
[2017-01-25] MEDS: RESP: ALBUTEROL 2.5 MG/IPRATROPIUM 0.5 MG NEB (SCH) NEB ×6 (00:22→20:05)
[2017-01-25] MEDS: BETHANECHOL CHL 25 MG TAB PO SCH ×3 (04:44→21:10)
[2017-01-25] MEDS: GABAPENTIN 300 MG CAP PO SCH (04:44)
[2017-01-25] MEDS: metroNIDAZOLE 500 MG INJ 100 ML IV SCH ×3 (04:45→21:03)
[2017-01-25] MEDS: POTASSIUM CHLORIDE 10 MEQ CONTROLLED RELEASE TAB PO SCH ×3 (04:45→21:10)
[2017-01-25] MEDS: hydrALAZINE HCL 50 MG TAB PO SCH ×3 (04:45→21:10)
[2017-01-25 06:03] LABS: HEMATOCRIT 29.4 % (39.0-51.0); MEAN CELL VOLUME 85.2 FL (80.0-100.0); MEAN CORPUSCULAR HGB CONC 32.9 % (32.0-36.0); PLATELET COUNT 162 TH/MM3 (150-450); RED BLOOD COUNT 3.46 MIL/MM3 (4.50-5.90); RED CELL DISTRIBUTION WIDTH 16.3 % (11.6-17.2); REVIEW FLAG FINAL; WHITE BLOOD COUNT 19.7 TH/MM3 (4.0-11.0)
[2017-01-25 06:04] LABS: BICARBONATE 30.8 MEQ/L (21.0-32.0); POTASSIUM 4.3 MEQ/L (3.5-5.1)
[2017-01-25] MEDS: ISOSORBIDE MONONITRATE 60 MG TAB PO SCH (06:18)
--- NOTE | 2017-01-25 07:22 | RADRPT ---
EXAM DATE/TIME: 01/25/2017 06:52 [facility] COMPARISON: CHEST SINGLE AP, January 21, 2017, 7:44. INDICATIONS : Short of breath MEDICAL HISTORY : Myocardial infarction. Congestive heart failure. SURGICAL HISTORY : Coronary artery stent. Appendectomy. cardiac cath ENCOUNTER: Subsequent ACUITY: 3 days PAIN SCORE: 0/10 LOCATION: Bilateral chest FINDINGS: The heart size is enlarged. There is mild prominence of the interstitial markings. There is further i ncreased density at the right base. No effusion is seen. CONCLUSION: 1. Cardiomegaly. 2. Mild persistent interstitial prominence which is improving likely representing improving edema. 3. Focal alveolar consolidation or atelectasis at the right lower lobe. Storm Fernandez MD on January 25, 2017 at 7:19 Board Certified Radiologist. This report was verified electronically.
--- NOTE | 2017-01-25 07:38 | PD.CARD.PN ---
Subjective Subjective Remarks Remains dyspneic. No chest pain. One run of non-sustained VT yesterday Objective Vital Signs / I&O Vital Signs Date Time Temp Pulse Resp B/P (MAP) Pulse Ox O2 Delivery O2 Flow Rate FiO2 01/25/17 05:01 97.6 81 19 117/63 (81) 95 01/25/17 00:30 97.4 83 19 127/69 (88) 96 01/25/17 00:22 98 Nasal Cannula 3.00 01/24/17 20:42 98.0 70 19 136/63 (87) 95 01/24/17 20:00 68 01/24/17 19:15 95 Room Air 2.50 01/24/17 16:05 97.5 58 20 125/59 (81) 96 01/24/17 15:27 98 Nasal Cannula 2.00 01/24/17 11:26 97.3 56 16 129/71 (90) 98 01/24/17 09:09 Nasal Cannula 2.50 01/24/17 09:04 52 I/O 01/24/17 01/24/17 01/24/17 01/25/17 01/25/17 01/25/17 07:00 15:00 23:00 07:00 15:00 23:00 Intake Total 1204 ml 1060 ml 120 ml Output Total 2050 ml 2200 ml 800 ml Balance -846 ml -1140 ml -680 ml Intake Oral 780 ml 960 ml 120 ml IV Total 424 ml 100 ml Output Urine Total 2050 ml 2200 ml 800 ml # Bowel Movements 3 1 Physical Exam Lungs diffuse rhonchi irregular rhythm @ 80 Abd soft Laboratory Laboratory Tests Test 01/24/17 20:06 01/25/17 03:40 Blood Urea Nitrogen 134 MG/DL 128 MG/DL Creatinine 3.79 MG/DL 3.57 MG/DL Random Glucose 314 MG/DL 271 MG/DL Calcium Level 8.9 MG/DL 8.5 MG/DL Sodium Level 127 MEQ/L 128 MEQ/L Potassium Level 3.6 MEQ/L 4.3 MEQ/L Chloride Level 85 MEQ/L 85 MEQ/L Carbon Dioxide Level 32.6 MEQ/L 30.8 MEQ/L Anion Gap 9 MEQ/L 12 MEQ/L Estimat Glomerular Filtration Rate 15 ML/MIN 16 ML/MIN White Blood Count 19.7 TH/MM3 Red Blood Count 3.46 MIL/MM3 Hemoglobin 9.7 GM/DL Hematocrit 29.4 % Mean Corpuscular Volume 85.2 FL Mean Corpuscular Hemoglobin 28.0 PG Mean Corpuscular Hemoglobin Concent 32.9 % Red Cell Distribution Width 16.3 % Platelet Count 162 TH/MM3 Mean Platelet Volume 9.7 FL Hematology Comments Albumin 2.6 GM/DL Phosphorus Level 4.1 MG/DL Assessment and Plan Problem List: (1) Atrial fibrillation ICD Codes: I48.91 - Atrial fibrillation Status: Chronic Plan: Will increase amiodarone to 200 mg bid. If VT continues may need to consider ablation (2) Congestive heart failure ICD Codes: I50.9 - Congestive heart failure Status: Acute Assessment and Plan CHF clinically resolved. Will d/c lasix and check BMp in AM. Recheck Cxr and BNP A fib rate controlled on metoprolol will continue Suggest GI consult- will hold breakfast this morning Problem Qualifiers (1) Congestive heart failure: Qualified Codes: I50.23 - Acute on chronic systolic (congestive) heart failure Kenji Rodríguez MD Jan 25, 2017 07:38
[2017-01-25] MEDS: INSULIN ASPART SUPPLEMENTAL SCALE SQ SCH ×4 (08:35→21:00)
[2017-01-25] MEDS: ASPIRIN 81 MG CHEW TAB PO SCH (08:36)
[2017-01-25] MEDS: LACTOBACILLUS ACIDOPHILUS TAB PO SCH ×3 (08:36→17:56)
[2017-01-25] MEDS: CALCIUM ACETATE 667 MG CAP PO SCH ×3 (08:36→17:56)
[2017-01-25] MEDS: DOCUSATE SODIUM 50 MG/SENNA 8.6 MG TAB PO SCH ×2 (08:36→21:00)
[2017-01-25] MEDS: AMIODARONE 200 MG TAB PO SCH (08:36)
[2017-01-25] MEDS: POLYETHYLENE GLYCOL 17 GM PKG PO SCH (08:36)
[2017-01-25] MEDS: PANTOPRAZOLE SOD 40 MG DELAYED RELEASE TAB PO SCH ×2 (08:36→21:10)
[2017-01-25] MEDS: TICAGRELOR 90 MG TAB PO SCH ×2 (08:36→21:10)
[2017-01-25] MEDS: methylPREDNISolone SOD SUCC 40 MG/1 ML VIAL IV PUSH SCH ×2 (08:36→21:09)
[2017-01-25] MEDS: HEPARIN SODIUM - SQ 10,000 UNITS/ML VIAL SQ SCH ×2 (08:37→21:09)
[2017-01-25] MEDS: guaiFENesin E.R. 600 MG TAB PO SCH ×2 (08:37→21:11)
[2017-01-25] MEDS: BUMETANIDE INJ 1 MG/4 ML VIAL IV PUSH SCH ×2 (08:37→21:09)
[2017-01-25] MEDS: predniSONE 20 MG TAB PO SCH (08:37)
[2017-01-25] MEDS: SODIUM CHLORIDE 0.9% FLUSH 10 ML FLUSH IV FLUSH SCH ×2 (08:38→21:03)
[2017-01-25] MEDS: BUDESONIDE-FORMOTEROL 160/4.5 MCG INHALER INH SCH ×2 (08:38→21:00)
[2017-01-25] MEDS: METOPROLOL TARTRATE 25 MG TAB PO SCH ×2 (08:39→21:11)
[2017-01-25] MEDS: CHLOROTHIAZIDE SOD 500 MG VIAL IV SCH ×2 (08:39→21:00)
[2017-01-25] MEDS: BACITRACIN OINT 0.9 GM PKT TOPICAL SCH (08:40)
[2017-01-25] MEDS: LEVOFLOXACIN 500 MG PREMIX INJ 100 ML IV SCH (12:42)
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
[2017-01-25] MEDS: ONDANSETRON HCL 4 MG/2 ML VIAL IVP PRN (16:00)
--- NOTE | 2017-01-25 17:08 | HHI.PR ---
Subjective Remarks Follow up for Afib, CHF, acute on chronic renal failure and possible aspiration pneumonia. Patient is doing well. Breathing treatments are helping him. No fever , chills. Objective Vitals Vital Signs Date Time Temp Pulse Resp B/P (MAP) Pulse Ox O2 Delivery O2 Flow Rate FiO2 01/25/17 16:19 95 Nasal Cannula 2.00 01/25/17 16:05 97.8 65 19 125/66 (85) 96 01/25/17 11:11 97.1 61 16 134/71 (92) 97 01/25/17 08:31 Nasal Cannula 2.00 01/25/17 08:00 97.1 01/25/17 08:00 97.1 60 16 122/64 (83) 98 01/25/17 07:38 95 21 01/25/17 05:01 97.6 81 19 117/63 (81) 95 01/25/17 00:30 97.4 83 19 127/69 (88) 96 01/25/17 00:22 98 Nasal Cannula 3.00 01/24/17 20:42 98.0 70 19 136/63 (87) 95 01/24/17 20:00 68 01/24/17 19:15 95 Room Air 2.50 I/O 01/24/17 01/24/17 01/24/17 01/25/17 01/25/17 01/25/17 07:00 15:00 23:00 07:00 15:00 23:00 Intake Total 1204 ml 1060 ml 120 ml Output Total 2050 ml 2200 ml 800 ml Balance -846 ml -1140 ml -680 ml Intake Oral 780 ml 960 ml 120 ml IV Total 424 ml 100 ml Output Urine Total 2050 ml 2200 ml 800 ml # Bowel Movements 3 1 Result Diagram: 01/25/17 0340 01/25/17 0340 Imaging Last Impressions Chest X-Ray 01/25/17 0000 Signed Impressions: Service Date/Time: Wednesday, January 25, 2017 06:52 - CONCLUSION: 1. Cardiomegaly. 2. Mild persistent interstitial prominence which is improving likely representing improving edema. 3. Focal alveolar consolidation or atelectasis at the right lower lobe. Storm Fernandez MD Gastric Emptying Nuclear Medicine 01/14/17 0000 Signed Impressions: Service Date/Time: Saturday, January 14, 2017 11:18 - CONCLUSION: 1. Markedly prolonged gastric emptying with no response to Reglan Kenji Calderon MD Abdomen X-Ray 01/12/17 0000 Signed Impressions: Service Date/Time: Thursday, January 12, 2017 10:07 - CONCLUSION: 1. No acute abdominal abnormality is identified. 2. Severe atherosclerotic disease. Storm Allen MD Renal Ultrasound 01/11/17 0000 Signed Impressions: Service Date/Time: Wednesday, January 11, 2017 23:22 - CONCLUSION: No evidence of hydronephrosis. 2.8 cm left renal cyst. Clemente Matute MD Lower Extremity Ultrasound 01/10/17 0000 Signed Impressions: Service Date/Time: December 08:44 - CONCLUSION: 1. Negative left lower extremity DVT study. A Clay's cyst measuring 2.5 x 4.7 x 1 cm. Carlitos Corona MD Toe X-Ray 01/09/17 0000 Signed Impressions: Service Date/Time: Monday, January 09, 2017 17:40 - CONCLUSION: Soft tissue swelling third digit without bony destruction. Wilfredo Maddox MD FACR Objective Remarks GENERAL: Alert, NAD. SKIN: Warm and dry. HEAD: Normocephalic. EYES: No scleral icterus. No injection or drainage. NECK: Supple, trachea midline. No JVD or lymphadenopathy. CARDIOVASCULAR: Regular rate and rhythm without murmurs, gallops, or rubs. RESPIRATORY: Breath sounds equal bilaterally. No accessory muscle use. GASTROINTESTINAL: Abdomen soft, non-tender, nondistended. MUSCULOSKELETAL: No cyanosis. 2+ bilateral lower ext edema. Anasarca. BACK: Nontender without obvious deformity. No CVA tenderness. Procedures 01/10/2017 Echo Normal left ventricular size. Mild concentric left ventricular hypertrophy. The left ventricular systolic function is hyperdynamic with an estimated ejection fraction in the range of 65- 70%. This study was not technically sufficient to allow for evaluation of left ventricular diastolic function. The right ventricle is moderately dilated. The right ventricular systoilc function is mildly decreased. The left atrial size is moderately dilated. The right atrial size is moderate to severely dilated. The interatrial septum not well visualized. Mild thickening of the mitral valve leaflets. [id number] mitral valve regurgitation. Trace aortic valve regurgitation. No aortic valve stenosis. Annular dilatation of the tricuspid valve. There is moderate to severe tricuspid valve regurgitation. There is estimated moderate pulmonary hypertension present (range 50-60 mmHg). The inferior vena cava was not well visualized. A prominent epicardial fat pad is present. 01/11/2017 EGD Large gastric residuals Gastritis A/P Problem List: (1) COPD exacerbation ICD Code: J44.1 - Chronic obstructive pulmonary disease with (acute) exacerbation Status: Acute (2) Congestive heart failure ICD Code: I50.9 - Congestive heart failure Status: Acute (3) Infection of toe ICD Code: L08.9 - Local infection of the skin and subcutaneous tissue, unspecified Status: Acute (4) Shortness of breath dyspnea ICD Code: R06.02 - Shortness of breath dyspnea Status: Acute (5) Hypertension ICD Code: I10 - Hypertension Status: Chronic (6) Chronic obstructive pulmonary disease ICD Code: J44.9 - Chronic obstructive pulmonary disease Status: Chronic (7) Hyperlipidemia ICD Code: E78.5 - Hyperlipidemia Status: Chronic (8) Chronic kidney disease, stage III (moderate) ICD Code: N18.3 - Chronic kidney disease, stage III (moderate) Status: Acute (9) Atrial fibrillation ICD Code: I48.91 - Atrial fibrillation Status: Chronic (10) DM (diabetes mellitus) ICD Code: E11.9 - DM (diabetes mellitus) Status: Acute (11) NSTEMI (non-ST elevated myocardial infarction) ICD Code: I21.4 - Non-ST elevation (NSTEMI) myocardial infarction (12) UTI (lower urinary tract infection) ICD Code: N39.0 - UTI (lower urinary tract infection) Status: Acute (13) Anemia ICD Code: D64.9 - Anemia Status: Acute (14) Diabetes ICD Code: E11.9 - Diabetes mellitus Status: Acute Assessment and Plan This is an 86-year-old male with past medical history significant for coronary artery disease status post recent stenting with implantation of bare- metal stent s/p discharge 01/01/17, COPD, questionable CHF, diabetes, atrial fibrillation, neuropathy, GERD and history of prostate cancer who presented to [facility] ED on 01/09/2017 with complaints of shortness of breath and chest discomfort for 2 days prior to this admission. Patient was found to have acute on chronic kidney disease. On admission, his troponins were significantly elevated. - Probable aspiration pneumonia - Patient's CBC shows WBC increased from 9.7 --> 14.6 --> 19.7, having productive cough. - Leukocytosis could also be partially due to steroids. Will start to decrease Steroid. - CXR image reviewed by me shows CHF congestion as well as possibly infiltrates on the right lower lung. - Continue Levaquin IV adjusted for renal function as well as IV Flagyl. - Patient is encouraged to eat sitting upright. D/W RN as well. - Acute diastolic congestive heart failure - Coronary artery disease with recent bare metal stent placement. - Elevated troponins were likely related to NSTEMI from previous admission. - BNP > 400. LVEF 65-70%. - Continue aspirin 81 mg, Ticagrelor 90mg BID. - Currently on Bumex 2mg IV Q12hrs. Nephrology added Diuril. - Continue Metoprolol Q12hrs, Imdur 60mg Qday, Lipitor 40mg QHS. - Non-sustained Vtach - Continue Amiodarone 200mg Qday, Metoprolol 75mg BID with holding parameters. - Acute kidney injury - Chronic kidney disease - baseline creatinine 1.5. - Hypokalemia - K+ improved to 4.3. Will discontinue PO KCL. - Creatinine 3.79 --> 3.57. - Appreciate nephrology input. Possible dialysis if creatinine continues to worsen. - Continue Bumex 2mg Q12hrs IV and Diuril. - Probable upper GI bleed - EGD did not show any evidence of active bleeding site. - Hgb 9.4. - Continue PPI. - Diabetes mellitus type 2 - Continue Levemir 15 units QHS, sliding scale insulin. - Incidental finding of 1 cm irregular nodule right upper lobe - CT chest 12/23/16 - Recommend follow-up CT at approximately 3, 9 and 24 months and or contrast enhanced CT, PET and/or biopsy Full code. Heparin for DVT while in the hospital. Problem Qualifiers (1) Congestive heart failure: Qualified Codes: I50.23 - Acute on chronic systolic (congestive) heart failure Mark Monzon DO Jan 25, 2017 17:08
--- NOTE | 2017-01-25 17:08 | HHI.PR ---
Subjective Remarks Delayed entry for 01/24/2017 Follow up for Afib, CHF, acute on chronic renal failure and possible aspiration pneumonia. No fever, chills. Requests scheduled breathing treatments. Objective Vitals Vital Signs Date Time Temp Pulse Resp B/P (MAP) Pulse Ox O2 Delivery O2 Flow Rate FiO2 01/25/17 16:19 95 Nasal Cannula 2.00 01/25/17 16:05 97.8 65 19 125/66 (85) 96 01/25/17 11:11 97.1 61 16 134/71 (92) 97 01/25/17 08:31 Nasal Cannula 2.00 01/25/17 08:00 97.1 01/25/17 08:00 97.1 60 16 122/64 (83) 98 01/25/17 07:38 95 21 01/25/17 05:01 97.6 81 19 117/63 (81) 95 01/25/17 00:30 97.4 83 19 127/69 (88) 96 01/25/17 00:22 98 Nasal Cannula 3.00 01/24/17 20:42 98.0 70 19 136/63 (87) 95 01/24/17 20:00 68 01/24/17 19:15 95 Room Air 2.50 I/O 01/24/17 01/24/17 01/24/17 01/25/17 01/25/17 01/25/17 07:00 15:00 23:00 07:00 15:00 23:00 Intake Total 1204 ml 1060 ml 120 ml Output Total 2050 ml 2200 ml 800 ml Balance -846 ml -1140 ml -680 ml Intake Oral 780 ml 960 ml 120 ml IV Total 424 ml 100 ml Output Urine Total 2050 ml 2200 ml 800 ml # Bowel Movements 3 1 Result Diagram: 01/25/17 0340 01/25/17 0340 Objective Remarks GENERAL: Wakes up on verbal commands, somewhat lethargic, NAD. SKIN: Warm and dry. HEAD: Normocephalic. EYES: No scleral icterus. No injection or drainage. NECK: Supple, trachea midline. No JVD or lymphadenopathy. CARDIOVASCULAR: Regular rate and rhythm without murmurs, gallops, or rubs. RESPIRATORY: Breath sounds equal bilaterally. No accessory muscle use. GASTROINTESTINAL: Abdomen soft, non-tender, nondistended. MUSCULOSKELETAL: No cyanosis. 2+ bilateral lower ext edema. BACK: Nontender without obvious deformity. No CVA tenderness. Procedures 01/10/2017 Echo Normal left ventricular size. Mild concentric left ventricular hypertrophy. The left ventricular systolic function is hyperdynamic with an estimated ejection fraction in the range of 65- 70%. This study was not technically sufficient to allow for evaluation of left ventricular diastolic function. The right ventricle is moderately dilated. The right ventricular systoilc function is mildly decreased. The left atrial size is moderately dilated. The right atrial size is moderate to severely dilated. The interatrial septum not well visualized. Mild thickening of the mitral valve leaflets. [id number] mitral valve regurgitation. Trace aortic valve regurgitation. No aortic valve stenosis. Annular dilatation of the tricuspid valve. There is moderate to severe tricuspid valve regurgitation. There is estimated moderate pulmonary hypertension present (range 50-60 mmHg). The inferior vena cava was not well visualized. A prominent epicardial fat pad is present. 01/11/2017 EGD Large gastric residuals Gastritis A/P Problem List: (1) COPD exacerbation ICD Code: J44.1 - Chronic obstructive pulmonary disease with (acute) exacerbation Status: Acute (2) Congestive heart failure ICD Code: I50.9 - Congestive heart failure Status: Acute (3) Infection of toe ICD Code: L08.9 - Local infection of the skin and subcutaneous tissue, unspecified Status: Acute (4) Shortness of breath dyspnea ICD Code: R06.02 - Shortness of breath dyspnea Status: Acute (5) Hypertension ICD Code: I10 - Hypertension Status: Chronic (6) Chronic obstructive pulmonary disease ICD Code: J44.9 - Chronic obstructive pulmonary disease Status: Chronic (7) Hyperlipidemia ICD Code: E78.5 - Hyperlipidemia Status: Chronic (8) Chronic kidney disease, stage III (moderate) ICD Code: N18.3 - Chronic kidney disease, stage III (moderate) Status: Acute (9) Atrial fibrillation ICD Code: I48.91 - Atrial fibrillation Status: Chronic (10) DM (diabetes mellitus) ICD Code: E11.9 - DM (diabetes mellitus) Status: Acute (11) NSTEMI (non-ST elevated myocardial infarction) ICD Code: I21.4 - Non-ST elevation (NSTEMI) myocardial infarction (12) UTI (lower urinary tract infection) ICD Code: N39.0 - UTI (lower urinary tract infection) Status: Acute (13) Anemia ICD Code: D64.9 - Anemia Status: Acute (14) Diabetes ICD Code: E11.9 - Diabetes mellitus Status: Acute Assessment and Plan This is an 86-year-old male with past medical history significant for coronary artery disease status post recent stenting with implantation of bare- metal stent s/p discharge 01/01/17, COPD, questionable CHF, diabetes, atrial fibrillation, neuropathy, GERD and history of prostate cancer who presented to [facility] ED on 01/09/2017 with complaints of shortness of breath and chest discomfort for 2 days prior to this admission. Patient was found to have acute on chronic kidney disease. On admission, his troponins were significantly elevated. - Probable aspiration pneumonia - Patient's CBC shows WBC increased from 9.7 --> 14.6, having productive cough. - CXR image reviewed by me shows CHF congestion as well as possibly infiltrates on the right lower lung. - Continue Levaquin IV adjusted for renal function as well as IV Flagyl. - Patient is encouraged to eat sitting upright. D/W RN as well. - Acute diastolic congestive heart failure - Coronary artery disease with recent bare metal stent placement. - Elevated troponins were likely related to NSTEMI from previous admission. - BNP > 400. LVEF 65-70%. - Continue aspirin 81 mg, Ticagrelor 90mg BID. - Currently on Bumex 2mg IV Q12hrs. Nephrology added Diuril. - Continue Metoprolol Q12hrs, Imdur 60mg Qday, Lipitor 40mg QHS. - Acute kidney injury - Chronic kidney disease - baseline creatinine 1.5. - Hypokalemia - K+ 3.1. Patient could not tolerate IV KCL. Will place him on KCL 10mEQ PO Q8hrs. - Creatinine 3.30 --> 3.43 --> 3.13 --> 3.26, 3.29 - Appreciate nephrology input. Possible dialysis if creatinine continues to worsen. - Continue Bumex 2mg Q12hrs IV and Diuril. - Probable upper GI bleed - EGD did not show any evidence of active bleeding site. - Hgb 9.4. - Continue PPI. - Diabetes mellitus type 2 - Continue Levemir 15 units QHS, sliding scale insulin. - Incidental finding of 1 cm irregular nodule right upper lobe - CT chest 12/23/16 - Recommend follow-up CT at approximately 3, 9 and 24 months and or contrast enhanced CT, PET and/or biopsy Full code. Heparin for DVT while in the hospital. Problem Qualifiers (1) Congestive heart failure: Qualified Codes: I50.23 - Acute on chronic systolic (congestive) heart failure Mark Monzon DO Jan 25, 2017 17:08
[2017-01-25] MEDS: INSULIN DETEMIR 100 UNITS/ML VIAL SQ SCH (21:00)
[2017-01-25] MEDS: ALBUMIN HUMAN 25% 12.5 GM/50 ML BAGP IV SCH (21:03)
[2017-01-25] MEDS: ATORVASTATIN 40 MG TAB PO SCH (21:10)
[2017-01-25] MEDS: ALPRAZolam 0.25 MG TAB PO PRN (21:10)
[2017-01-26] VITALS (9 sets, daily range): BP systolic 119–125; BP diastolic 56–75; PULSE 56–75; RESP 16–20; TEMP 97.4–97.9; O2SAT 94–99
[2017-01-26] MEDS: RESP: ALBUTEROL 2.5 MG/IPRATROPIUM 0.5 MG NEB (PRN) NEB (01:03)
[2017-01-26] MEDS: BETHANECHOL CHL 25 MG TAB PO SCH ×3 (06:32→22:57)
[2017-01-26] MEDS: GABAPENTIN 300 MG CAP PO SCH (06:32)
[2017-01-26] MEDS: hydrALAZINE HCL 50 MG TAB PO SCH ×3 (06:32→22:57)
[2017-01-26] MEDS: metroNIDAZOLE 500 MG INJ 100 ML IV SCH ×2 (06:32→12:26)
[2017-01-26] MEDS: ISOSORBIDE MONONITRATE 60 MG TAB PO SCH (06:32)
[2017-01-26] MEDS: ONDANSETRON HCL 4 MG/2 ML VIAL IVP PRN (06:32)
[2017-01-26] MEDS: RESP: ALBUTEROL 2.5 MG/IPRATROPIUM 0.5 MG NEB (SCH) NEB ×4 (07:32→19:53)
[2017-01-26 07:51] LABS: BICARBONATE 34.3 MEQ/L (21.0-32.0); POTASSIUM 4.1 MEQ/L (3.5-5.1)
[2017-01-26] MEDS: INSULIN ASPART SUPPLEMENTAL SCALE SQ SCH ×4 (08:00→22:57)
[2017-01-26] MEDS: BUDESONIDE-FORMOTEROL 160/4.5 MCG INHALER INH SCH ×2 (09:00→22:55)
[2017-01-26] MEDS: BACITRACIN OINT 0.9 GM PKT TOPICAL SCH (09:00)
[2017-01-26] MEDS: DOCUSATE SODIUM 50 MG/SENNA 8.6 MG TAB PO SCH ×2 (09:00→22:57)
[2017-01-26] MEDS: POLYETHYLENE GLYCOL 17 GM PKG PO SCH (09:00)
[2017-01-26] MEDS: METOPROLOL TARTRATE 25 MG TAB PO SCH ×2 (09:05→21:00)
[2017-01-26] MEDS: predniSONE 10 MG TAB PO SCH ×2 (09:05→22:55)
[2017-01-26] MEDS: HEPARIN SODIUM - SQ 10,000 UNITS/ML VIAL SQ SCH ×2 (09:05→22:56)
[2017-01-26] MEDS: LACTOBACILLUS ACIDOPHILUS TAB PO SCH ×3 (09:05→17:00)
[2017-01-26] MEDS: guaiFENesin E.R. 600 MG TAB PO SCH ×2 (09:05→22:56)
[2017-01-26] MEDS: AMIODARONE 200 MG TAB PO SCH (09:06)
[2017-01-26] MEDS: ASPIRIN 81 MG CHEW TAB PO SCH (09:06)
[2017-01-26] MEDS: TICAGRELOR 90 MG TAB PO SCH ×2 (09:06→22:56)
[2017-01-26] MEDS: PANTOPRAZOLE SOD 40 MG DELAYED RELEASE TAB PO SCH ×2 (09:06→22:55)
[2017-01-26] MEDS: BUMETANIDE INJ 1 MG/4 ML VIAL IV PUSH SCH ×2 (09:07→23:20)
[2017-01-26] MEDS: SODIUM CHLORIDE 0.9% FLUSH 10 ML FLUSH IV FLUSH SCH ×2 (09:09→22:58)
[2017-01-26] MEDS: CHLOROTHIAZIDE SOD 500 MG VIAL IV SCH (09:15)
[2017-01-26] MEDS: ALBUMIN HUMAN 25% 12.5 GM/50 ML BAGP IV SCH ×2 (09:15→22:55)
[2017-01-26] MEDS: CALCIUM ACETATE 667 MG CAP PO SCH ×3 (09:30→18:23)
--- NOTE | 2017-01-26 10:40 | HHI.PR ---
Subjective Remarks Follow up for Afib, CHF, acute on chronic renal failure and possible aspiration pneumonia. Patient is currently doing well. No fever or chills. Objective Vitals Vital Signs Date Time Temp Pulse Resp B/P (MAP) Pulse Ox O2 Delivery O2 Flow Rate FiO2 01/26/17 08:00 97.4 67 18 125/61 (82) 94 01/26/17 07:32 96 Nasal Cannula 2.00 01/26/17 04:00 97.7 67 20 119/56 (77) 99 01/26/17 00:00 97.5 59 20 119/67 (84) 98 01/25/17 20:00 97.3 72 20 132/65 (87) 99 01/25/17 19:15 95 Room Air 2.00 01/25/17 19:15 51 01/25/17 16:19 95 Nasal Cannula 2.00 01/25/17 16:05 97.8 65 19 125/66 (85) 96 01/25/17 11:11 97.1 61 16 134/71 (92) 97 I/O 01/25/17 01/25/17 01/25/17 01/26/17 01/26/17 01/26/17 07:00 15:00 23:00 07:00 15:00 23:00 Intake Total 120 ml 630 ml Output Total 800 ml 1200 ml 1502 ml Balance -680 ml -570 ml -1502 ml Intake Oral 120 ml 480 ml IV Total 150 ml Output Urine Total 800 ml 1200 ml 1500 ml Stool Total 2 ml # Bowel Movements 1 Result Diagram: 01/25/17 0340 01/26/17 0641 Imaging Last Impressions Chest X-Ray 01/25/17 0000 Signed Impressions: Service Date/Time: Wednesday, January 25, 2017 06:52 - CONCLUSION: 1. Cardiomegaly. 2. Mild persistent interstitial prominence which is improving likely representing improving edema. 3. Focal alveolar consolidation or atelectasis at the right lower lobe. Storm Fernandez MD Gastric Emptying Nuclear Medicine 01/14/17 0000 Signed Impressions: Service Date/Time: Saturday, January 14, 2017 11:18 - CONCLUSION: 1. Markedly prolonged gastric emptying with no response to Reglan Kenji Calderon MD Abdomen X-Ray 01/12/17 0000 Signed Impressions: Service Date/Time: Thursday, January 12, 2017 10:07 - CONCLUSION: 1. No acute abdominal abnormality is identified. 2. Severe atherosclerotic disease. Storm Allen MD Renal Ultrasound 01/11/17 0000 Signed Impressions: Service Date/Time: Wednesday, January 11, 2017 23:22 - CONCLUSION: No evidence of hydronephrosis. 2.8 cm left renal cyst. Clemente Matute MD Lower Extremity Ultrasound 01/10/17 0000 Signed Impressions: Service Date/Time: December 08:44 - CONCLUSION: 1. Negative left lower extremity DVT study. A Clay's cyst measuring 2.5 x 4.7 x 1 cm. Carlitos Corona MD Toe X-Ray 01/09/17 0000 Signed Impressions: Service Date/Time: Monday, January 09, 2017 17:40 - CONCLUSION: Soft tissue swelling third digit without bony destruction. Wilfredo Maddox MD FACR Objective Remarks GENERAL: Alert, NAD. SKIN: Warm and dry. HEAD: Normocephalic. EYES: No scleral icterus. No injection or drainage. NECK: Supple, trachea midline. No JVD or lymphadenopathy. CARDIOVASCULAR: Regular rate and rhythm without murmurs, gallops, or rubs. RESPIRATORY: Breath sounds equal bilaterally. No accessory muscle use. GASTROINTESTINAL: Abdomen soft, non-tender, nondistended. MUSCULOSKELETAL: No cyanosis. 2+ bilateral lower ext edema. Anasarca. BACK: Nontender without obvious deformity. No CVA tenderness. Procedures 01/10/2017 Echo Normal left ventricular size. Mild concentric left ventricular hypertrophy. The left ventricular systolic function is hyperdynamic with an estimated ejection fraction in the range of 65- 70%. This study was not technically sufficient to allow for evaluation of left ventricular diastolic function. The right ventricle is moderately dilated. The right ventricular systoilc function is mildly decreased. The left atrial size is moderately dilated. The right atrial size is moderate to severely dilated. The interatrial septum not well visualized. Mild thickening of the mitral valve leaflets. Ivix-xw-ljqpsltk mitral valve regurgitation. Trace aortic valve regurgitation. No aortic valve stenosis. Annular dilatation of the tricuspid valve. There is moderate to severe tricuspid valve regurgitation. There is estimated moderate pulmonary hypertension present (range 50-60 mmHg). The inferior vena cava was not well visualized. A prominent epicardial fat pad is present. 01/11/2017 EGD Large gastric residuals Gastritis A/P Problem List: (1) COPD exacerbation ICD Code: J44.1 - Chronic obstructive pulmonary disease with (acute) exacerbation Status: Acute (2) Congestive heart failure ICD Code: I50.9 - Congestive heart failure Status: Acute (3) Infection of toe ICD Code: L08.9 - Local infection of the skin and subcutaneous tissue, unspecified Status: Acute (4) Shortness of breath dyspnea ICD Code: R06.02 - Shortness of breath dyspnea Status: Acute (5) Hypertension ICD Code: I10 - Hypertension Status: Chronic (6) Chronic obstructive pulmonary disease ICD Code: J44.9 - Chronic obstructive pulmonary disease Status: Chronic (7) Hyperlipidemia ICD Code: E78.5 - Hyperlipidemia Status: Chronic (8) Chronic kidney disease, stage III (moderate) ICD Code: N18.3 - Chronic kidney disease, stage III (moderate) Status: Acute (9) Atrial fibrillation ICD Code: I48.91 - Atrial fibrillation Status: Chronic (10) DM (diabetes mellitus) ICD Code: E11.9 - DM (diabetes mellitus) Status: Acute (11) NSTEMI (non-ST elevated myocardial infarction) ICD Code: I21.4 - Non-ST elevation (NSTEMI) myocardial infarction (12) UTI (lower urinary tract infection) ICD Code: N39.0 - UTI (lower urinary tract infection) Status: Acute (13) Anemia ICD Code: D64.9 - Anemia Status: Acute (14) Diabetes ICD Code: E11.9 - Diabetes mellitus Status: Acute Assessment and Plan This is an 86-year-old male with past medical history significant for coronary artery disease status post recent stenting with implantation of bare- metal stent s/p discharge 01/01/17, COPD, questionable CHF, diabetes, atrial fibrillation, neuropathy, GERD and history of prostate cancer who presented to [facility] ED on 01/09/2017 with complaints of shortness of breath and chest discomfort for 2 days prior to this admission. Patient was found to have acute on chronic kidney disease. On admission, his troponins were significantly elevated. - Probable aspiration pneumonia - Patient's CBC shows WBC increased from 9.7 --> 19.7K likely due to steroid. - Will switch to PO abx. - Acute diastolic congestive heart failure - Coronary artery disease with recent bare metal stent placement. - Elevated troponins were likely related to NSTEMI from previous admission. - BNP > 400. LVEF 65-70%. - Continue aspirin 81 mg, Ticagrelor 90mg BID. - Currently on Bumex 2mg IV Q12hrs. Nephrology added Diuril. - Continue Metoprolol Q12hrs, Imdur 60mg Qday, Lipitor 40mg QHS. - Acute kidney injury - Chronic kidney disease - baseline creatinine 1.5. - Hypokalemia - K+ 3.1. Patient could not tolerate IV KCL. Will place him on KCL 10mEQ PO Q8hrs. - Creatinine 3.30 --> 3.67 today. - Appreciate nephrology input. Possible dialysis if creatinine continues to worsen. - Continue Bumex 2mg Q12hrs IV and Diuril. - Per nephrology, patient is on Albumin. - Probable upper GI bleed - EGD did not show any evidence of active bleeding site. - Hgb 9.4. - Continue PPI. - Diabetes mellitus type 2 - Continue Levemir 15 units QHS, sliding scale insulin. - Incidental finding of 1 cm irregular nodule right upper lobe - CT chest 12/23/16 - Recommend follow-up CT at approximately 3, 9 and 24 months and or contrast enhanced CT, PET and/or biopsy Full code. Heparin for DVT while in the hospital. Problem Qualifiers (1) Congestive heart failure: Qualified Codes: I50.23 - Acute on chronic systolic (congestive) heart failure Mark Monzno DO Jan 26, 2017 10:40 am
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
[2017-01-26] MEDS: metroNIDAZOLE 500 MG TAB PO SCH ×2 (14:00→22:55)
[2017-01-26] MEDS: ERGOCALCIFEROL (VIT D2) 50,000 UNIT CAP PO SCH (18:22)
[2017-01-26] MEDS: oxyCODONE/ACETAMINOPHEN 10 MG/325 MG TAB PO PRN (19:44)
[2017-01-26] MEDS: ATORVASTATIN 40 MG TAB PO SCH (22:56)
[2017-01-26] MEDS: INSULIN DETEMIR 100 UNITS/ML VIAL SQ SCH (22:57)
[2017-01-27] VITALS (8 sets, daily range): BP systolic 124–149; BP diastolic 63–79; PULSE 48–90; RESP 17–22; TEMP 95.7–98.7; O2SAT 95–100
[2017-01-27] MEDS: metroNIDAZOLE 500 MG TAB PO SCH ×3 (06:23→22:21)
[2017-01-27] MEDS: BETHANECHOL CHL 25 MG TAB PO SCH (06:23)
[2017-01-27] MEDS: hydrALAZINE HCL 50 MG TAB PO SCH ×3 (06:23→22:21)
[2017-01-27] MEDS: ISOSORBIDE MONONITRATE 60 MG TAB PO SCH (06:23)
[2017-01-27] MEDS: GABAPENTIN 300 MG CAP PO SCH (06:23)
[2017-01-27] MEDS: oxyCODONE/ACETAMINOPHEN 10 MG/325 MG TAB PO PRN (06:23)
[2017-01-27] MEDS: INSULIN ASPART SUPPLEMENTAL SCALE SQ SCH ×4 (08:00→22:44)
[2017-01-27] MEDS: RESP: ALBUTEROL 2.5 MG/IPRATROPIUM 0.5 MG NEB (SCH) NEB ×4 (08:09→19:30)
[2017-01-27 08:17] LABS: MEAN CORPUSCULAR HEMOGLOBIN 27.6 PG (27.0-34.0); MEAN CORPUSCULAR HGB CONC 32.1 % (32.0-36.0); PLATELET COUNT 146 TH/MM3 (150-450); RED BLOOD COUNT 3.49 MIL/MM3 (4.50-5.90); RED CELL DISTRIBUTION WIDTH 16.1 % (11.6-17.2); WHITE BLOOD COUNT 18.6 TH/MM3 (4.0-11.0)
[2017-01-27 08:33] LABS: BICARBONATE 35.8 MEQ/L (21.0-32.0); POTASSIUM 3.7 MEQ/L (3.5-5.1)
[2017-01-27] MEDS: AMIODARONE 200 MG TAB PO SCH (08:50)
[2017-01-27] MEDS: predniSONE 10 MG TAB PO SCH ×2 (08:51→22:20)
[2017-01-27] MEDS: guaiFENesin E.R. 600 MG TAB PO SCH ×2 (08:51→22:21)
[2017-01-27] MEDS: DOCUSATE SODIUM 50 MG/SENNA 8.6 MG TAB PO SCH ×2 (08:51→22:21)
[2017-01-27] MEDS: LACTOBACILLUS ACIDOPHILUS TAB PO SCH ×3 (08:51→17:21)
[2017-01-27] MEDS: CALCIUM ACETATE 667 MG CAP PO SCH ×3 (08:51→17:21)
[2017-01-27] MEDS: PANTOPRAZOLE SOD 40 MG DELAYED RELEASE TAB PO SCH ×2 (08:51→22:21)
[2017-01-27] MEDS: METOPROLOL TARTRATE 25 MG TAB PO SCH ×2 (08:52→22:21)
[2017-01-27] MEDS: POLYETHYLENE GLYCOL 17 GM PKG PO SCH (08:52)
[2017-01-27] MEDS: ASPIRIN 81 MG CHEW TAB PO SCH (08:53)
[2017-01-27] MEDS: SODIUM CHLORIDE 0.9% FLUSH 10 ML FLUSH IV FLUSH SCH ×2 (08:53→22:22)
[2017-01-27] MEDS: TICAGRELOR 90 MG TAB PO SCH (08:53)
[2017-01-27] MEDS: LEVOFLOXACIN 500 MG TAB PO SCH (08:53)
[2017-01-27] MEDS: BUMETANIDE INJ 1 MG/4 ML VIAL IV PUSH SCH ×2 (08:54→22:22)
[2017-01-27] MEDS: CHLOROTHIAZIDE SOD 500 MG VIAL IV SCH (08:55)
[2017-01-27] MEDS: HEPARIN SODIUM - SQ 10,000 UNITS/ML VIAL SQ SCH ×2 (08:55→22:23)
[2017-01-27 08:58] LABS: REVIEW FLAG FINAL
[2017-01-27] MEDS: ALBUMIN HUMAN 25% 12.5 GM/50 ML BAGP IV SCH (09:00)
[2017-01-27] MEDS: BUDESONIDE-FORMOTEROL 160/4.5 MCG INHALER INH SCH ×2 (09:00→22:22)
[2017-01-27] MEDS: BACITRACIN OINT 0.9 GM PKT TOPICAL SCH (09:00)
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
--- NOTE | 2017-01-27 13:16 | HHI.PR ---
Subjective Remarks Follow up for Afib, CHF, acute on chronic renal failure and possible aspiration pneumonia. Patient is doing well. No acute concerns. He is getting scheduled breathing treatments. Objective Vitals Vital Signs Date Time Temp Pulse Resp B/P (MAP) Pulse Ox O2 Delivery O2 Flow Rate FiO2 01/27/17 11:13 Nasal Cannula 2.00 01/27/17 08:00 50 01/27/17 08:00 97.4 54 17 124/68 (86) 98 01/27/17 07:15 Nasal Cannula 2.00 01/27/17 04:00 95.7 61 18 124/79 (94) 99 01/27/17 04:00 Nasal Cannula 2.00 Humidified 01/27/17 00:00 Nasal Cannula 2.00 Humidified 01/27/17 00:00 97.1 48 22 142/63 (89) 98 01/26/17 20:00 64 01/26/17 20:00 Nasal Cannula 2.00 Humidified 01/26/17 20:00 97.9 75 16 124/63 (83) 94 01/26/17 19:55 98 Nasal Cannula 2.00 01/26/17 16:00 97.5 56 18 119/71 (87) 97 I/O 01/26/17 01/26/17 01/26/17 01/27/17 01/27/17 01/27/17 07:00 15:00 23:00 07:00 15:00 23:00 Intake Total 1000 ml Output Total 1502 ml 1200 ml 2750 ml Balance -1502 ml -1200 ml -1750 ml Intake Oral 950 ml Albumin 50 ml Output Urine Total 1500 ml 1200 ml 2750 ml Stool Total 2 ml # Bowel Movements 0 1 Result Diagram: 01/27/1758 01/27/1758 Objective Remarks GENERAL: Alert, NAD. SKIN: Warm and dry. HEAD: Normocephalic. EYES: No scleral icterus. No injection or drainage. NECK: Supple, trachea midline. No JVD or lymphadenopathy. CARDIOVASCULAR: Regular rate and rhythm without murmurs, gallops, or rubs. RESPIRATORY: Breath sounds equal bilaterally. No accessory muscle use. GASTROINTESTINAL: Abdomen soft, non-tender, nondistended. MUSCULOSKELETAL: No cyanosis. 2+ bilateral lower ext edema. Anasarca. BACK: Nontender without obvious deformity. No CVA tenderness. Procedures 01/10/2017 Echo Normal left ventricular size. Mild concentric left ventricular hypertrophy. The left ventricular systolic function is hyperdynamic with an estimated ejection fraction in the range of 65- 70%. This study was not technically sufficient to allow for evaluation of left ventricular diastolic function. The right ventricle is moderately dilated. The right ventricular systoilc function is mildly decreased. The left atrial size is moderately dilated. The right atrial size is moderate to severely dilated. The interatrial septum not well visualized. Mild thickening of the mitral valve leaflets. [id number] mitral valve regurgitation. Trace aortic valve regurgitation. No aortic valve stenosis. Annular dilatation of the tricuspid valve. There is moderate to severe tricuspid valve regurgitation. There is estimated moderate pulmonary hypertension present (range 50-60 mmHg). The inferior vena cava was not well visualized. A prominent epicardial fat pad is present. 01/11/2017 EGD Large gastric residuals Gastritis A/P Problem List: (1) COPD exacerbation ICD Code: J44.1 - Chronic obstructive pulmonary disease with (acute) exacerbation Status: Acute (2) Congestive heart failure ICD Code: I50.9 - Congestive heart failure Status: Acute (3) Infection of toe ICD Code: L08.9 - Local infection of the skin and subcutaneous tissue, unspecified Status: Acute (4) Shortness of breath dyspnea ICD Code: R06.02 - Shortness of breath dyspnea Status: Acute (5) Hypertension ICD Code: I10 - Hypertension Status: Chronic (6) Chronic obstructive pulmonary disease ICD Code: J44.9 - Chronic obstructive pulmonary disease Status: Chronic (7) Hyperlipidemia ICD Code: E78.5 - Hyperlipidemia Status: Chronic (8) Chronic kidney disease, stage III (moderate) ICD Code: N18.3 - Chronic kidney disease, stage III (moderate) Status: Acute (9) Atrial fibrillation ICD Code: I48.91 - Atrial fibrillation Status: Chronic (10) DM (diabetes mellitus) ICD Code: E11.9 - DM (diabetes mellitus) Status: Acute (11) NSTEMI (non-ST elevated myocardial infarction) ICD Code: I21.4 - Non-ST elevation (NSTEMI) myocardial infarction (12) UTI (lower urinary tract infection) ICD Code: N39.0 - UTI (lower urinary tract infection) Status: Acute (13) Anemia ICD Code: D64.9 - Anemia Status: Acute (14) Diabetes ICD Code: E11.9 - Diabetes mellitus Status: Acute Assessment and Plan This is an 86-year-old male with past medical history significant for coronary artery disease status post recent stenting with implantation of bare- metal stent s/p discharge 01/01/17, COPD, questionable CHF, diabetes, atrial fibrillation, neuropathy, GERD and history of prostate cancer who presented to [facility] ED on 01/09/2017 with complaints of shortness of breath and chest discomfort for 2 days prior to this admission. Patient was found to have acute on chronic kidney disease. On admission, his troponins were significantly elevated. - Probable aspiration pneumonia - Patient's CBC shows WBC increased from 9.7 --> 19.7K likely due to steroid. - Continue Levaquin and Flagyl PO. - Acute diastolic congestive heart failure - Coronary artery disease with recent bare metal stent placement. - Elevated troponins were likely related to NSTEMI from previous admission. - BNP > 400. LVEF 65-70%. - Continue aspirin 81 mg, Ticagrelor 90mg BID. - Currently on Bumex 2mg IV Q12hrs. Nephrology added Diuril. - Continue Metoprolol Q12hrs, Imdur 60mg Qday, Lipitor 40mg QHS. - Acute kidney injury - Chronic kidney disease - baseline creatinine 1.5. - Hypokalemia - K+ 3.7 - Creatinine 3.30 --> 3.80. Creatinine continues to worsen. - Appreciate nephrology input. Possible dialysis if creatinine continues to worsen. - Continue Bumex 2mg Q12hrs IV and Diuril. - Per nephrology, patient is on Albumin. - Ticagrelor is on hold due to possible need for Dialysis catheter placement. - Probable upper GI bleed - EGD did not show any evidence of active bleeding site. - Hgb 9.6. - Continue PPI. - Diabetes mellitus type 2 - Continue Levemir 15 units QHS, sliding scale insulin. - Glucose is somewhat high due to steroid. We will continue to taper steroid. - Incidental finding of 1 cm irregular nodule right upper lobe - CT chest 12/23/16 - Recommend follow-up CT at approximately 3, 9 and 24 months and or contrast enhanced CT, PET and/or biopsy Full code. Heparin for DVT while in the hospital. Problem Qualifiers (1) Congestive heart failure: Qualified Codes: I50.23 - Acute on chronic systolic (congestive) heart failure Mark Monzon DO Jan 27, 2017 13:16
[2017-01-27] MEDS: ATORVASTATIN 40 MG TAB PO SCH (22:21)
[2017-01-27] MEDS: INSULIN DETEMIR 100 UNITS/ML VIAL SQ SCH (22:44)
[2017-01-28] VITALS (11 sets, daily range): BP systolic 114–147; BP diastolic 56–71; PULSE 52–114; RESP 18–20; TEMP 97.5–98.4; O2SAT 94–100
[2017-01-28] MEDS: GABAPENTIN 300 MG CAP PO SCH (06:07)
[2017-01-28] MEDS: hydrALAZINE HCL 50 MG TAB PO SCH ×3 (06:07→20:43)
[2017-01-28] MEDS: ISOSORBIDE MONONITRATE 60 MG TAB PO SCH (06:07)
[2017-01-28] MEDS: metroNIDAZOLE 500 MG TAB PO SCH ×3 (06:07→20:46)
[2017-01-28] MEDS: RESP: ALBUTEROL 2.5 MG/IPRATROPIUM 0.5 MG NEB (SCH) NEB ×4 (07:22→19:29)
[2017-01-28] MEDS: INSULIN ASPART SUPPLEMENTAL SCALE SQ SCH ×4 (08:00→20:45)
[2017-01-28] MEDS: predniSONE 10 MG TAB PO SCH ×2 (08:14→20:43)
[2017-01-28] MEDS: BUMETANIDE INJ 1 MG/4 ML VIAL IV PUSH SCH ×2 (08:14→20:42)
[2017-01-28] MEDS: AMIODARONE 200 MG TAB PO SCH (08:15)
[2017-01-28] MEDS: PANTOPRAZOLE SOD 40 MG DELAYED RELEASE TAB PO SCH ×2 (08:15→20:44)
[2017-01-28] MEDS: METOPROLOL TARTRATE 25 MG TAB PO SCH ×2 (08:15→20:43)
[2017-01-28] MEDS: HEPARIN SODIUM - SQ 10,000 UNITS/ML VIAL SQ SCH ×2 (08:15→20:44)
[2017-01-28] MEDS: DOCUSATE SODIUM 50 MG/SENNA 8.6 MG TAB PO SCH ×2 (08:15→20:43)
[2017-01-28] MEDS: ASPIRIN 81 MG CHEW TAB PO SCH (08:15)
[2017-01-28] MEDS: guaiFENesin E.R. 600 MG TAB PO SCH ×2 (08:15→20:45)
[2017-01-28] MEDS: POLYETHYLENE GLYCOL 17 GM PKG PO SCH (08:16)
[2017-01-28] MEDS: CALCIUM ACETATE 667 MG CAP PO SCH ×3 (08:16→18:06)
[2017-01-28] MEDS: LACTOBACILLUS ACIDOPHILUS TAB PO SCH ×3 (08:16→18:06)
[2017-01-28] MEDS: SODIUM CHLORIDE 0.9% FLUSH 10 ML FLUSH IV FLUSH SCH ×2 (08:17→20:41)
[2017-01-28] MEDS: CHLOROTHIAZIDE SOD 500 MG VIAL IV SCH (08:26)
[2017-01-28] MEDS: BUDESONIDE-FORMOTEROL 160/4.5 MCG INHALER INH SCH ×2 (08:27→20:40)
[2017-01-28] MEDS: BACITRACIN OINT 0.9 GM PKT TOPICAL SCH (08:27)
[2017-01-28 09:12] LABS: PROTHROMBIN TIME - PATIENT 11.4 SEC (9.8-11.6)
[2017-01-28 09:28] LABS: BICARBONATE 39.1 MEQ/L (21.0-32.0)
[2017-01-28 09:43] LABS: POTASSIUM 2.9 MEQ/L (3.5-5.1)
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
[2017-01-28] MEDS ORDERED: POTASSIUM CHLORIDE 20 MEQ CONTROLLED RELEASE TAB PO STA (11:33)
--- NOTE | 2017-01-28 13:30 | HHI.PR ---
Subjective Remarks Follow up for Afib, CHF, acute on chronic renal failure and possible aspiration pneumonia. Patient is somewhat fatigued and feels lethargic. No fever or chills. Objective Vitals Vital Signs Date Time Temp Pulse Resp B/P (MAP) Pulse Ox O2 Delivery O2 Flow Rate FiO2 01/28/17 12:07 97.7 57 20 131/60 (83) 98 01/28/17 08:40 Nasal Cannula 2.00 Humidified 01/28/17 08:40 71 01/28/17 08:05 97.5 52 20 114/56 (75) 97 01/28/17 07:24 99 Nasal Cannula 2.00 01/28/17 04:00 98.1 65 20 129/65 (86) 96 01/28/17 00:00 Nasal Cannula 2.00 Humidified 01/28/17 00:00 97.9 61 18 122/71 (88) 99 01/27/17 20:00 97.4 86 20 149/78 (101) 100 01/27/17 20:00 Nasal Cannula 2.00 Humidified 01/27/17 19:59 61 01/27/17 19:27 99 Nasal Cannula 2.00 01/27/17 16:00 97.2 62 18 128/75 (92) 95 I/O 01/27/17 01/27/17 01/27/17 01/28/17 01/28/17 01/28/17 07:00 15:00 23:00 07:00 15:00 23:00 Intake Total 1000 ml 700 ml 240 ml Output Total 2750 ml 1700 ml 1800 ml Balance -1750 ml -1000 ml -1560 ml Intake Oral 950 ml 700 ml 240 ml Albumin 50 ml Output Urine Total 2750 ml 1700 ml 1800 ml # Bowel Movements 1 0 1 Result Diagram: 01/27/17 0658 01/28/17 0654 Objective Remarks GENERAL: Alert, NAD. SKIN: Warm and dry. HEAD: Normocephalic. EYES: No scleral icterus. No injection or drainage. NECK: Supple, trachea midline. No JVD or lymphadenopathy. CARDIOVASCULAR: Regular rate and rhythm without murmurs, gallops, or rubs. RESPIRATORY: Breath sounds equal bilaterally. No accessory muscle use. GASTROINTESTINAL: Abdomen soft, non-tender, nondistended. MUSCULOSKELETAL: No cyanosis. 2+ bilateral lower ext edema. Anasarca. BACK: Nontender without obvious deformity. No CVA tenderness. Procedures 01/10/2017 Echo Normal left ventricular size. Mild concentric left ventricular hypertrophy. The left ventricular systolic function is hyperdynamic with an estimated ejection fraction in the range of 65- 70%. This study was not technically sufficient to allow for evaluation of left ventricular diastolic function. The right ventricle is moderately dilated. The right ventricular systoilc function is mildly decreased. The left atrial size is moderately dilated. The right atrial size is moderate to severely dilated. The interatrial septum not well visualized. Mild thickening of the mitral valve leaflets. Pnau-jw-kpplugor mitral valve regurgitation. Trace aortic valve regurgitation. No aortic valve stenosis. Annular dilatation of the tricuspid valve. There is moderate to severe tricuspid valve regurgitation. There is estimated moderate pulmonary hypertension present (range 50-60 mmHg). The inferior vena cava was not well visualized. A prominent epicardial fat pad is present. 01/11/2017 EGD Large gastric residuals Gastritis A/P Problem List: (1) COPD exacerbation ICD Code: J44.1 - Chronic obstructive pulmonary disease with (acute) exacerbation Status: Acute (2) Congestive heart failure ICD Code: I50.9 - Congestive heart failure Status: Acute (3) Infection of toe ICD Code: L08.9 - Local infection of the skin and subcutaneous tissue, unspecified Status: Acute (4) Shortness of breath dyspnea ICD Code: R06.02 - Shortness of breath dyspnea Status: Acute (5) Hypertension ICD Code: I10 - Hypertension Status: Chronic (6) Chronic obstructive pulmonary disease ICD Code: J44.9 - Chronic obstructive pulmonary disease Status: Chronic (7) Hyperlipidemia ICD Code: E78.5 - Hyperlipidemia Status: Chronic (8) Chronic kidney disease, stage III (moderate) ICD Code: N18.3 - Chronic kidney disease, stage III (moderate) Status: Acute (9) Atrial fibrillation ICD Code: I48.91 - Atrial fibrillation Status: Chronic (10) DM (diabetes mellitus) ICD Code: E11.9 - DM (diabetes mellitus) Status: Acute (11) NSTEMI (non-ST elevated myocardial infarction) ICD Code: I21.4 - Non-ST elevation (NSTEMI) myocardial infarction (12) UTI (lower urinary tract infection) ICD Code: N39.0 - UTI (lower urinary tract infection) Status: Acute (13) Anemia ICD Code: D64.9 - Anemia Status: Acute (14) Diabetes ICD Code: E11.9 - Diabetes mellitus Status: Acute Assessment and Plan This is an 86-year-old male with past medical history significant for coronary artery disease status post recent stenting with implantation of bare- metal stent s/p discharge 01/01/17, COPD, questionable CHF, diabetes, atrial fibrillation, neuropathy, GERD and history of prostate cancer who presented to [facility] ED on 01/09/2017 with complaints of shortness of breath and chest discomfort for 2 days prior to this admission. Patient was found to have acute on chronic kidney disease. On admission, his troponins were significantly elevated. - Probable aspiration pneumonia - Patient's CBC shows WBC increased from 9.7 --> 19.7K likely due to steroid. - Continue Levaquin and Flagyl PO. - Acute diastolic congestive heart failure - Coronary artery disease with recent bare metal stent placement. - Elevated troponins were likely related to NSTEMI from previous admission. - BNP > 400. LVEF 65-70%. - Continue aspirin 81 mg, Ticagrelor 90mg BID. - Currently on Bumex 2mg IV Q12hrs. Nephrology added Diuril. - Continue Metoprolol Q12hrs, Imdur 60mg Qday, Lipitor 40mg QHS. - Acute kidney injury - Chronic kidney disease - baseline creatinine 1.5. - Hypokalemia - K+ 2.9 today. Creatinine is around 3.8. - Creatinine 3.30 --> 3.80. Creatinine continues to worsen. - Appreciate nephrology input. Possible dialysis if creatinine continues to worsen. - Continue Bumex 2mg Q12hrs IV and Diuril. - Per nephrology, patient is on Albumin. - Ticagrelor is on hold due to possible need for Dialysis catheter placement. - Although palliative care, hospice held discussion, Per case management patient and family wants aggressive care. - Probable upper GI bleed - EGD did not show any evidence of active bleeding site. - Hgb 9.6. - Continue PPI. - Diabetes mellitus type 2 - Continue Levemir 15 units QHS, sliding scale insulin. - Glucose is somewhat high due to steroid. We will continue to taper steroid. - Incidental finding of 1 cm irregular nodule right upper lobe - CT chest 12/23/16 - Recommend follow-up CT at approximately 3, 9 and 24 months and or contrast enhanced CT, PET and/or biopsy Full code. Heparin for DVT while in the hospital. Problem Qualifiers (1) Congestive heart failure: Qualified Codes: I50.23 - Acute on chronic systolic (congestive) heart failure Mark Monzon DO Jan 28, 2017 1:30 pm
[2017-01-28] MEDS ORDERED: POTASSIUM CHLOR 20 MEQ PREMIX 100 ML IV ONE (14:00)
[2017-01-28] MEDS: oxyCODONE/ACETAMINOPHEN 10 MG/325 MG TAB PO PRN ×2 (14:05→20:44)
[2017-01-28] MEDS: ATORVASTATIN 40 MG TAB PO SCH (20:42)
[2017-01-28] MEDS: INSULIN DETEMIR 100 UNITS/ML VIAL SQ SCH (20:45)
[2017-01-29] VITALS (11 sets, daily range): BP systolic 106–150; BP diastolic 59–66; PULSE 52–77; RESP 18–20; TEMP 97.4–98.6; O2SAT 94–98
[2017-01-29] MEDS: metroNIDAZOLE 500 MG TAB PO SCH ×3 (05:21→22:43)
[2017-01-29] MEDS: GABAPENTIN 300 MG CAP PO SCH (05:21)
[2017-01-29] MEDS: oxyCODONE/ACETAMINOPHEN 10 MG/325 MG TAB PO PRN (05:21)
[2017-01-29] MEDS: hydrALAZINE HCL 50 MG TAB PO SCH ×3 (05:21→22:43)
[2017-01-29] MEDS: ISOSORBIDE MONONITRATE 60 MG TAB PO SCH (06:05)
[2017-01-29] MEDS: INSULIN ASPART SUPPLEMENTAL SCALE SQ SCH ×4 (08:00→19:55)
[2017-01-29] MEDS: RESP: ALBUTEROL 2.5 MG/IPRATROPIUM 0.5 MG NEB (SCH) NEB ×3 (08:00→15:58)
[2017-01-29] MEDS: BUMETANIDE INJ 1 MG/4 ML VIAL IV PUSH SCH ×2 (08:05→19:53)
[2017-01-29] MEDS: ASPIRIN 81 MG CHEW TAB PO SCH (08:05)
[2017-01-29] MEDS: guaiFENesin E.R. 600 MG TAB PO SCH ×2 (08:05→19:54)
[2017-01-29] MEDS: HEPARIN SODIUM - SQ 10,000 UNITS/ML VIAL SQ SCH ×2 (08:05→19:53)
[2017-01-29] MEDS: LACTOBACILLUS ACIDOPHILUS TAB PO SCH ×3 (08:05→17:10)
[2017-01-29] MEDS: CALCIUM ACETATE 667 MG CAP PO SCH ×3 (08:05→17:11)
[2017-01-29] MEDS: METOPROLOL TARTRATE 25 MG TAB PO SCH ×2 (08:05→19:56)
[2017-01-29] MEDS: predniSONE 10 MG TAB PO SCH ×2 (08:06→19:56)
[2017-01-29] MEDS: POLYETHYLENE GLYCOL 17 GM PKG PO SCH (08:06)
[2017-01-29] MEDS: DOCUSATE SODIUM 50 MG/SENNA 8.6 MG TAB PO SCH ×2 (08:06→19:55)
[2017-01-29] MEDS: AMIODARONE 200 MG TAB PO SCH (08:06)
[2017-01-29] MEDS: PANTOPRAZOLE SOD 40 MG DELAYED RELEASE TAB PO SCH ×2 (08:06→19:55)
[2017-01-29] MEDS: CHLOROTHIAZIDE SOD 500 MG VIAL IV SCH (08:14)
[2017-01-29] MEDS: LEVOFLOXACIN 500 MG TAB PO SCH (08:17)
[2017-01-29] MEDS: SODIUM CHLORIDE 0.9% FLUSH 10 ML FLUSH IV FLUSH SCH ×2 (08:28→19:54)
[2017-01-29] MEDS: BACITRACIN OINT 0.9 GM PKT TOPICAL SCH (08:30)
[2017-01-29] MEDS: BUDESONIDE-FORMOTEROL 160/4.5 MCG INHALER INH SCH ×2 (08:30→19:54)
[2017-01-29 08:48] LABS: BICARBONATE 39.7 MEQ/L (21.0-32.0)
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
[2017-01-29] MEDS: POTASSIUM CHLOR 20 MEQ PREMIX 100 ML IV SCH ×2 (12:29→17:13)
--- NOTE | 2017-01-29 16:55 | HHI.HCPN ---
Reason for visit a. To assist with evaluation and management of symptoms including: dyspnea, debility b. To assist medical decision maker(s) with: better understanding of current medical conditions; weighing benefits/burdens of medical treatment options; making medical treatment decisions. . Subjective/Interval History Patient examined in room today, and daughter at bedside. Patient is drowsy , he is dyspneic with conversation, on 2 L NC, closes his eyes throughout most of the conversation, minimal participation in discussion. Worsening leukocytosis , WBC:18.6, BUN/creatinine remain elevated at 135/3.63, eGFR:16. Palliative care following to assist with goals of care to provide support/ guidance regarding medical treatment benefit/burden medical treatment options. Family/friend interactions Bedside conversation with patient, Kimberly, and daughter Bess. Advance Directives Living Will: Copy in medical record Health Care Surrogate: Copy in medical record Durable Power of Lease Administration Analyst: Never completed Advance Directive Specifics Date completed: 01/21/17 . Health Care Surrogate(s): Nataliia Kinney () Alternate [facility] Bess Nirmal (daughter) Documented care wishes: Standard living will verbhieuge, patient documented he would not desire to be sustained on artificial life support if he had an end stage condition, terminal disease, or was in a persistent vegetative state. . Objective Vital Signs Date Time Temp Pulse Resp B/P (MAP) Pulse Ox O2 Delivery O2 Flow Rate FiO2 01/29/17 16:00 97 Nasal Cannula 2.00 01/29/17 12:11 97.9 54 19 125/66 (85) 96 01/29/17 08:46 95 Nasal Cannula 2.00 01/29/17 08:40 57 01/29/17 08:40 Nasal Cannula 2.00 01/29/17 08:05 97.5 59 20 106/66 (79) 98 01/29/17 04:00 98.6 57 18 131/59 (83) 94 01/29/17 00:00 98.4 52 18 150/63 (92) 96 01/29/17 00:00 Nasal Cannula 2.00 01/28/17 20:14 61 01/28/17 20:00 Nasal Cannula 2.00 Humidified 01/28/17 20:00 98.4 114 20 147/67 (93) 100 01/28/17 19:31 98 Nasal Cannula 2.00 Intake & Output 01/29/17 01/29/17 07:00 19:00 Intake Total 880 ml 100 ml Output Total 1650 ml Balance -770 ml 100 ml Intake Oral 880 ml IV Total 100 ml Output Urine Total 1650 ml # Bowel Movements 2 . Physical Exam CONSTITUTIONAL/GENERAL: This is an elderly male patient, drowsy, in no apparent distress. TUBES/LINES/DRAINS: PIV x 2, suprapubic catheter SKIN: No jaundice, rashes, or lesions. Ecchymoses on upper extremities. No wounds seen anteriorly. Skin temperature appropriate. Not diaphoretic. CARDIOVASCULAR: Irregular rate and rhythm without murmurs, gallops, or rubs. No JVD. Peripheral pulses symmetric. RESPIRATORY/CHEST: Symmetric, expiratory wheezes. Diminished breath sounds. Breath sounds equal bilaterally. GASTROINTESTINAL: Abdomen firm, protuberant. No guarding. Bowel sounds present. GENITOURINARY: Suprapubic catheter in place. MUSCULOSKELETAL: Extremities without clubbing, cyanosis, or edema. No mottling or clubbing. NEUROLOGICAL: Drowsy. Follows commands. Moves all extremities. PSYCHIATRIC: No obvious anxiety/depression. no apparent hallucinations or other psychotic thought process. . Diagnostic Tests Laboratory Laboratory Tests Test 01/27/17 06:58 01/28/17 06:54 01/29/17 05:50 White Blood Count 18.6 TH/MM3 (4.0-11.0) Red Blood Count 3.49 MIL/MM3 (4.50-5.90) Hemoglobin 9.6 GM/DL (13.0-17.0) Hematocrit 30.0 % (39.0-51.0) Mean Corpuscular Volume 86.0 FL (80.0-100.0) Mean Corpuscular Hemoglobin 27.6 PG (27.0-34.0) Mean Corpuscular Hemoglobin Concent 32.1 % (32.0-36.0) Red Cell Distribution Width 16.1 % (11.6-17.2) Platelet Count 146 TH/MM3 (150-450) Mean Platelet Volume 10.0 FL (7.0-11.0) Blood Urea Nitrogen 132 MG/DL (7-18) 134 MG/DL (7-18) 135 MG/DL (7-18) Creatinine 3.80 MG/DL (0.60-1.30) 3.77 MG/DL (0.60-1.30) 3.63 MG/DL (0.60-1.30) Random Glucose 179 MG/DL (74-106) 78 MG/DL (74-106) 116 MG/DL (74-106) Calcium Level 9.4 MG/DL (8.5-10.1) 9.7 MG/DL (8.5-10.1) 10.1 MG/DL (8.5-10.1) Sodium Level 129 MEQ/L (136-145) 133 MEQ/L (136-145) 131 MEQ/L (136-145) Potassium Level 3.7 MEQ/L (3.5-5.1) 2.9 MEQ/L (3.5-5.1) 3.0 MEQ/L (3.5-5.1) Chloride Level 83 MEQ/L (98-107) 83 MEQ/L (98-107) 83 MEQ/L (98-107) Carbon Dioxide Level 35.8 MEQ/L (21.0-32.0) 39.1 MEQ/L (21.0-32.0) 39.7 MEQ/L (21.0-32.0) Anion Gap 10 MEQ/L (5-15) 11 MEQ/L (5-15) 8 MEQ/L (5-15) Estimat Glomerular Filtration Rate 15 ML/MIN (>89) 15 ML/MIN (>89) 16 ML/MIN (>89) Prothrombin Time 11.4 SEC (9.8-11.6) Prothromb Time International Ratio 1.0 RATIO Albumin 2.9 GM/DL (3.4-5.0) Phosphorus Level 4.4 MG/DL (2.5-4.9) Result Diagram: 01/27/17 0658 01/29/17 0550 Procedures 01/11/17: EGD Assessment and Plan Disease Oriented Problem List: (1) Chronic kidney disease, stage III (moderate) (2) Congestive heart failure (3) Acute on chronic renal failure Symptom Scale: (1) Dyspnea (2) Debility Pertinent Non-Medical Issues Psychosocial: Spiritual: Christian. Legal: None known. Ethical issues impacting care: None known. . Important Contacts Nataliia Kinney () [phone] Bess Kinney (daughter) [phone] . Prognosis Patient has had a marked decline in health and functional status over the past two years. Patient recently suffered a HI for a second time requiring PTCA and stenting. The patient is now admitted for COPD exacerbation, CHF, and renal failure. Patient is at a high risk for setbacks and complications due to advanced age and multiple comorbidities. . Code Status: Full Code Plan * Legal decision maker: Patient currently displaying a waxing and waning neurological status, it is unclear if he has the capacity to make informed health care decisions independently. It would beneficial to have shared/ supported decision making with his family. Patient designated his as his HCS and his daughter Bess as his alternate HCS. * CODE STATUS: FULL CODE. Again today discussed risks, benefits and limitations of CPR. The patient has limited insight regarding his current clinical condition and overall prognosis. Patient's endorses that she believes the best possible outcome for her at this point is to keep him comfortable, she states that if the decision were left up to her she would be amenable to changing his code status to a DNR. * GOALS: Patient requested to speak with Hospice today to another HCP. Again a discussion was held at length with the patient and his family regarding goals of care. Further discussed aggressive goals of care versus comfort focused goals and Hospice admission. Patient states he "just wants to be comfortable" however he also makes comments such as "just pull the plug" and "the grim reaper is coming". Patient lacks insight/judgment regarding the severity/end stage nature of his multiple comorbidities, there is also an apparent element of denial. Patient's and daughter are agreeable to transitioning to comfort focused goals with Hospice. * SYMPTOM MANAGEMENT: --debility: Secondary to advanced age and multiple comorbidities. PT following and working with the patient as allowable due to his current clinical status. No recommendations at this time. --dyspnea: Due to patient's current clinical status, fluid volume overload, COPD exacerbation, CHF. Patient utilizes oxygen at home. Currently on 3L NC, on symbicort, and albuterol. No recommendations at this time. * Palliative care will continue to follow during hospital course as condition evolves, to assist patient/decision maker with understanding of medical conditions, weighing benefits/burdens of treatment options for clarification of goals of treatment. Additionally will assist with any symptoms of palliative concern. Alcira Laguerre Jan 29, 2017 16:54
[2017-01-29] MEDS: RESP: ALBUTEROL 2.5 MG/IPRATROPIUM 0.5 MG NEB (PRN) NEB (19:27)
[2017-01-29] MEDS: INSULIN DETEMIR 100 UNITS/ML VIAL SQ SCH (19:55)
[2017-01-29] MEDS: ATORVASTATIN 40 MG TAB PO SCH (19:56)
--- NOTE | 2017-01-29 20:42 | HHI.PR ---
Subjective Remarks Follow up for Afib, CHF, acute on chronic renal failure and possible aspiration pneumonia. Patient was seen in the AM. Patient feels more lethargic. He seems to request to talk to the imaging manager as well as his . He also states he would like to consider hospice. Remains afebrile. Objective Vitals Vital Signs Date Time Temp Pulse Resp B/P (MAP) Pulse Ox O2 Delivery O2 Flow Rate FiO2 01/29/17 19:29 96 Nasal Cannula 2.00 01/29/17 16:05 97.4 58 19 125/61 (82) 97 01/29/17 16:00 97 Nasal Cannula 2.00 01/29/17 12:11 97.9 54 19 125/66 (85) 96 01/29/17 08:46 95 Nasal Cannula 2.00 01/29/17 08:40 57 01/29/17 08:40 Nasal Cannula 2.00 01/29/17 08:05 97.5 59 20 106/66 (79) 98 01/29/17 04:00 98.6 57 18 131/59 (83) 94 01/29/17 00:00 98.4 52 18 150/63 (92) 96 01/29/17 00:00 Nasal Cannula 2.00 I/O 01/28/17 01/28/17 01/28/17 01/29/17 01/29/17 01/29/17 07:00 15:00 23:00 07:00 15:00 23:00 Intake Total 240 ml 340 ml 880 ml 2000 ml Output Total 1800 ml 1700 ml 1650 ml 1800 ml Balance -1560 ml -1360 ml -770 ml 200 ml Intake Oral 240 ml 240 ml 880 ml 1800 ml IV Total 100 ml 200 ml Output Urine Total 1800 ml 1700 ml 1650 ml 1800 ml # Bowel Movements 1 1 2 1 Result Diagram: 01/27/17 0658 01/29/17 0550 Objective Remarks GENERAL: Alert, NAD. SKIN: Warm and dry. HEAD: Normocephalic. EYES: No scleral icterus. No injection or drainage. NECK: Supple, trachea midline. No JVD or lymphadenopathy. CARDIOVASCULAR: Regular rate and rhythm without murmurs, gallops, or rubs. RESPIRATORY: Breath sounds equal bilaterally. No accessory muscle use. GASTROINTESTINAL: Abdomen soft, non-tender, nondistended. MUSCULOSKELETAL: No cyanosis. 2+ bilateral lower ext edema. Anasarca. BACK: Nontender without obvious deformity. No CVA tenderness. Procedures 01/10/2017 Echo Normal left ventricular size. Mild concentric left ventricular hypertrophy. The left ventricular systolic function is hyperdynamic with an estimated ejection fraction in the range of 65- 70%. This study was not technically sufficient to allow for evaluation of left ventricular diastolic function. The right ventricle is moderately dilated. The right ventricular systoilc function is mildly decreased. The left atrial size is moderately dilated. The right atrial size is moderate to severely dilated. The interatrial septum not well visualized. Mild thickening of the mitral valve leaflets. [id number] mitral valve regurgitation. Trace aortic valve regurgitation. No aortic valve stenosis. Annular dilatation of the tricuspid valve. There is moderate to severe tricuspid valve regurgitation. There is estimated moderate pulmonary hypertension present (range 50-60 mmHg). The inferior vena cava was not well visualized. A prominent epicardial fat pad is present. 01/11/2017 EGD Large gastric residuals Gastritis A/P Problem List: (1) COPD exacerbation ICD Code: J44.1 - Chronic obstructive pulmonary disease with (acute) exacerbation Status: Acute (2) Congestive heart failure ICD Code: I50.9 - Congestive heart failure Status: Acute (3) Infection of toe ICD Code: L08.9 - Local infection of the skin and subcutaneous tissue, unspecified Status: Acute (4) Shortness of breath dyspnea ICD Code: R06.02 - Shortness of breath dyspnea Status: Acute (5) Hypertension ICD Code: I10 - Hypertension Status: Chronic (6) Chronic obstructive pulmonary disease ICD Code: J44.9 - Chronic obstructive pulmonary disease Status: Chronic (7) Hyperlipidemia ICD Code: E78.5 - Hyperlipidemia Status: Chronic (8) Chronic kidney disease, stage III (moderate) ICD Code: N18.3 - Chronic kidney disease, stage III (moderate) Status: Acute (9) Atrial fibrillation ICD Code: I48.91 - Atrial fibrillation Status: Chronic (10) DM (diabetes mellitus) ICD Code: E11.9 - DM (diabetes mellitus) Status: Acute (11) NSTEMI (non-ST elevated myocardial infarction) ICD Code: I21.4 - Non-ST elevation (NSTEMI) myocardial infarction (12) UTI (lower urinary tract infection) ICD Code: N39.0 - UTI (lower urinary tract infection) Status: Acute (13) Anemia ICD Code: D64.9 - Anemia Status: Acute (14) Diabetes ICD Code: E11.9 - Diabetes mellitus Status: Acute Assessment and Plan This is an 86-year-old male with past medical history significant for coronary artery disease status post recent stenting with implantation of bare- metal stent s/p discharge 01/01/17, COPD, questionable CHF, diabetes, atrial fibrillation, neuropathy, GERD and history of prostate cancer who presented to [facility] ED on 01/09/2017 with complaints of shortness of breath and chest discomfort for 2 days prior to this admission. Patient was found to have acute on chronic kidney disease. On admission, his troponins were significantly elevated. - Probable aspiration pneumonia - Patient's CBC shows WBC increased from 9.7 --> 19.7K likely due to steroid. - Continue Levaquin and Flagyl PO. - Acute diastolic congestive heart failure - Coronary artery disease with recent bare metal stent placement. - Elevated troponins were likely related to NSTEMI from previous admission. - BNP > 400. LVEF 65-70%. - Continue aspirin 81 mg, Ticagrelor 90mg BID. - Currently on Bumex 2mg IV Q12hrs. Nephrology added Diuril. - Continue Metoprolol Q12hrs, Imdur 60mg Qday, Lipitor 40mg QHS. - Acute kidney injury - Chronic kidney disease - baseline creatinine 1.5. - Hypokalemia - K+ 2.9 today. Creatinine is around 3.8. - Creatinine 3.30 --> 3.80. Creatinine continues to worsen. - Appreciate nephrology input. Possible dialysis if creatinine continues to worsen. - Continue Bumex 2mg Q12hrs IV and Diuril. - Per nephrology, patient is on Albumin. - Ticagrelor is on hold due to possible need for Dialysis catheter placement. - Palliative care, hospice have discussed with patient. Today 01/29/2017, patient requests to see imaging manager and wants to consider hospice. Will ask hospice team to discuss with patient and family again. - Probable upper GI bleed - EGD did not show any evidence of active bleeding site. - Hgb 9.6. - Continue PPI. - Diabetes mellitus type 2 - Continue Levemir 15 units QHS, sliding scale insulin. - Glucose is somewhat high due to steroid. We will continue to taper steroid. - Incidental finding of 1 cm irregular nodule right upper lobe - CT chest 12/23/16 - Recommend follow-up CT at approximately 3, 9 and 24 months and or contrast enhanced CT, PET and/or biopsy Full code. Heparin for DVT while in the hospital. Discharge plan: Patient is hospice appropriate. Will ask hospice to see patient again. Will also consult [facility]. Problem Qualifiers (1) Congestive heart failure: Qualified Codes: I50.23 - Acute on chronic systolic (congestive) heart failure Mark Monzon DO Jan 29, 2017 20:42
[2017-01-30] VITALS: BP 146/65; PULSE 76; RESP 17; TEMP 97.8; O2SAT 100
[2017-01-30 04:00] VITALS: BP 136/62; PULSE 65; RESP 21; TEMP 98; O2SAT 98
[2017-01-30] MEDS: hydrALAZINE HCL 50 MG TAB PO SCH ×2 (06:05→12:56)
[2017-01-30] MEDS: ISOSORBIDE MONONITRATE 60 MG TAB PO SCH (06:06)
[2017-01-30] MEDS: metroNIDAZOLE 500 MG TAB PO SCH (06:06)
[2017-01-30] MEDS: GABAPENTIN 300 MG CAP PO SCH (06:06)
[2017-01-30 08:00] VITALS: BP 122/60; PULSE 64; RESP 19; TEMP 97.5; O2SAT 98
--- NOTE | 2017-01-30 09:15 | HHI.PR ---
Subjective Remarks in no distress. has mild sob. no fever. complaining of pain to the left ankle. Objective Vitals Vital Signs Date Time Temp Pulse Resp B/P (MAP) Pulse Ox O2 Delivery O2 Flow Rate FiO2 01/30/17 08:00 97.5 64 19 122/60 (80) 98 01/30/17 04:00 Nasal Cannula 2.00 01/30/17 04:00 98.0 65 21 136/62 (86) 98 01/30/17 00:00 97.8 76 17 146/65 (92) 100 01/30/17 00:00 Nasal Cannula 2.00 01/29/17 20:30 58 01/29/17 20:00 98.6 77 18 128/61 (83) 95 01/29/17 20:00 Nasal Cannula 2.00 01/29/17 19:29 96 Nasal Cannula 2.00 01/29/17 16:05 97.4 58 19 125/61 (82) 97 01/29/17 16:00 97 Nasal Cannula 2.00 01/29/17 12:11 97.9 54 19 125/66 (85) 96 I/O 01/29/17 01/29/17 01/29/17 01/30/17 01/30/17 01/30/17 07:00 15:00 23:00 07:00 15:00 23:00 Intake Total 880 ml 2000 ml 660 ml Output Total 1650 ml 1800 ml 1200 ml Balance -770 ml 200 ml -540 ml Intake Oral 880 ml 1800 ml 660 ml IV Total 200 ml Output Urine Total 1650 ml 1800 ml 1200 ml # Bowel Movements 2 1 2 Result Diagram: 01/27/17 0658 01/29/17 0550 Imaging Last Impressions Chest X-Ray 01/25/17 0000 Signed Impressions: Service Date/Time: Wednesday, January 25, 2017 06:52 - CONCLUSION: 1. Cardiomegaly. 2. Mild persistent interstitial prominence which is improving likely representing improving edema. 3. Focal alveolar consolidation or atelectasis at the right lower lobe. Storm Fernandez MD Gastric Emptying Nuclear Medicine 01/14/17 0000 Signed Impressions: Service Date/Time: Saturday, January 14, 2017 11:18 - CONCLUSION: 1. Markedly prolonged gastric emptying with no response to Reglan Kenji Calderon MD Abdomen X-Ray 01/12/17 0000 Signed Impressions: Service Date/Time: Thursday, January 12, 2017 10:07 - CONCLUSION: 1. No acute abdominal abnormality is identified. 2. Severe atherosclerotic disease. Storm Allen MD Renal Ultrasound 01/11/17 0000 Signed Impressions: Service Date/Time: Wednesday, January 11, 2017 23:22 - CONCLUSION: No evidence of hydronephrosis. 2.8 cm left renal cyst. Clemente Matute MD Lower Extremity Ultrasound 01/10/17 0000 Signed Impressions: Service Date/Time: December 08:44 - CONCLUSION: 1. Negative left lower extremity DVT study. A Clay's cyst measuring 2.5 x 4.7 x 1 cm. Carlitos Corona MD Toe X-Ray 01/09/17 0000 Signed Impressions: Service Date/Time: Monday, January 09, 2017 17:40 - CONCLUSION: Soft tissue swelling third digit without bony destruction. Wilfredo Maddox MD FACR Objective Remarks GENERAL: in no acute distress CARDIOVASCULAR; tachycardic with irregular rhythm without murmurs, gallops, or rubs. RESPIRATORY: Clear to auscultation. Breath sounds equal bilaterally. No wheezes , rales, or rhonchi. GASTROINTESTINAL: Abdomen soft, mild generalized tenderness and distended. Normal, active bowel sounds MUSCULOSKELETAL: erythema and swelling of the left third toe.bilateral pedal edema. NEURO: Alert & Oriented x4 to person, place, time, situation. Moves all ext x4 skin; some erythema over the left leg along with superficial ulcer on the left weeks Procedures 01/10/2017 Echo Normal left ventricular size. Mild concentric left ventricular hypertrophy. The left ventricular systolic function is hyperdynamic with an estimated ejection fraction in the range of 65- 70%. This study was not technically sufficient to allow for evaluation of left ventricular diastolic function. The right ventricle is moderately dilated. The right ventricular systoilc function is mildly decreased. The left atrial size is moderately dilated. The right atrial size is moderate to severely dilated. The interatrial septum not well visualized. Mild thickening of the mitral valve leaflets. [id number] mitral valve regurgitation. Trace aortic valve regurgitation. No aortic valve stenosis. Annular dilatation of the tricuspid valve. There is moderate to severe tricuspid valve regurgitation. There is estimated moderate pulmonary hypertension present (range 50-60 mmHg). The inferior vena cava was not well visualized. A prominent epicardial fat pad is present. 01/11/2017 EGD Large gastric residuals Gastritis Medications and IVs Current Medications Methylprednisolone Sodium Succinate (SoluMEDROL INJ) 125 mg ONCE ONCE IV PUSH Last administered on 01/09/17 17:08; Start 01/09/17 at 16:00; Stop 01/09/17 at 16:01; Status DC Albuterol/ Ipratropium (Duoneb Neb) 1 ampule Q15M INH Last administered on 01/09 16:27; Start 01/09/17 at 16:00; Stop 01/09/17 at 16:16; Status DC Furosemide (Lasix Inj) 40 mg ONCE ONCE IV PUSH Last administered on 01/09/17 18:55; Start 01/09/17 at 18:15; Stop 01/09/17 at 18:16; Status DC Trimethoprim/ Sulfamethoxazole (Bactrim Ds 800-160 Mg) 1 tab ONCE ONCE PO Last administered on 01/09/17 20:53; Start 01/09/17 at 20:00; Stop 01/09/17 at 20:01; Status DC Dextrose (D50w (Vial) Inj) 50 ml UNSCH PRN IV PUSH HYPOGLYCEMIA-SEE COMMENTS; Start 01/09/17 at 18:30 Glucagon (Glucagon Inj) 1 mg UNSCH PRN OTHER HYPOGLYCEMIA-SEE COMMENTS; Start 01/09/17 at 18:30 Insulin Aspart (NovoLOG SUPPLEMENTAL SCALE) 1 ACHS SLIDING SCALE SQ Last administered on 01/27/17 22:44; Start 01/09/17 at 21:00 Sodium Chloride (NS Flush) 2 ml UNSCH PRN IV FLUSH FLUSH AFTER USING IV ACCESS ; Start 01/09/17 at 18:30; Stop 01/09/17 at 19:26; Status DC Sodium Chloride (NS Flush) 2 ml BID IV FLUSH ; Start 01/09/17 at 21:00; Stop at 21:00; Status DC Acetaminophen (Tylenol) 650 mg Q4H PRN PO TEMP > 100.4; Start 01/09/17 at 18:30 Ondansetron HCl (Zofran Inj) 4 mg Q6H PRN IVP NAUSEA OR VOMITING Last administered on 01/26/17 06:32; Start 01/09/17 at 18:30 Prochlorperazine (Compazine Supp) 25 mg Q12H PRN RECTAL NAUSEA OR VOMITING; Start 01/09/17 at 18:30 Acetaminophen (Tylenol) 650 mg Q6H PRN PO PAIN SCALE 1 TO 2; Start 01/09/17 at 18:30 Oxycodone/ Acetaminophen (Percocet 5-325 Mg) 1 tab Q6H PRN PO PAIN SCALE 3 TO 5; Start 01/09/17 at 18:30 Oxycodone/ Acetaminophen (Percocet 10-325 Mg) 1 tab Q6H PRN PO PAIN SCALE 6 TO 10 Last administered on 01/29/17 05:21; Start 01/09/17 at 18:30 Morphine Sulfate (Morphine Inj) 2 mg Q3H PRN IV PUSH Pain 3-5; if unable to take PO; Start 01/09/17 at 18:30 Morphine Sulfate (Morphine Inj) 4 mg Q3H PRN IV PUSH Pain 6-10;if unable to take PO; Start 01/09/17 at 18:30 Naloxone HCl (Narcan Inj) 0.4 mg UNSCH PRN IV PUSH SEE LABEL COMMENTS; Start at 18:30 Senna/Docusate Sodium (Ofe-Colace) 1 tab BID PO Last administered on 19:55; Start 01/09/17 at 21:00 Magnesium Hydroxide (Milk Of Magnesia Liq) 30 ml Q12H PRN PO MILD - MODERATE CONSTIPATION; Start 01/09/17 at 18:30 Sennosides (Senokot) 17.2 mg Q12H PRN PO MODERATE - SEVERE CONSTIPATION; Start 01/09/17 at 18:30 Bisacodyl (Dulcolax Supp) 10 mg DAILY PRN RECTAL SEVERE CONSITIPATION; Start at 18:30 Lactulose (Lactulose Liq) 30 ml DAILY PRN PO SEVERE CONSITIPATION; Start at 18:30 Furosemide (Lasix Inj) 40 mg Q12H IV Last administered on 01/10/17 21:56; Start 01/09/17 at 21:00; Stop 01/11/17 at 07:58; Status DC Vancomycin HCl 1000 mg/Sodium Chloride 250 ml @ 250 mls/hr Q12H IV ; Start at 18:30; Stop 01/09/17 at 20:22; Status DC Cefepime HCl 1000 mg/Sodium Chloride 100 ml @ 200 mls/hr Q8H IV Last administered on 01/11/17 04:27; Start 01/09/17 at 20:00; Stop 01/11/17 at 08:53 ; Status DC Pharmacy Profile Note 0 ml @ 0 mls/hr UNSCH OTHER ; Start 01/09/17 at 18:30; Stop 01/11/17 at 08:53; Status DC Albuterol/ Ipratropium (Duoneb Neb) 1 ampule Q4HR NEB INH Last administered on 01/13/17 15:42; Start 01/09/17 at 20:00; Stop 01/13/17 at 19:59; Status DC Albuterol Sulfate (Albuterol Neb) 2.5 mg Q2HR NEB PRN INH SHORTNESS OF BREATH Last administered on 01/22/17 11:00; Start 01/09/17 at 18:45; Stop 01/23/17 at 09:54; Status DC Budesonide/ Formoterol Fumarate (Symbicort 160-4.5 Inh) 2 puff Q12HR INH Last administered on 01/29/17 19:54; Start 01/09/17 at 21:00 Methylprednisolone Sodium Succinate (SoluMEDROL INJ) 60 mg Q12H IV PUSH Last administered on 01/11/17 21:38; Start 01/09/17 at 21:00; Stop 01/12/17 at 08:13 ; Status DC Guaifenesin (Mucinex Er) 600 mg BID PO Last administered on 01/29/17 19:54; Start 01/09/17 at 21:00 Aspirin (Aspirin Chew) 81 mg DAILY PO Last administered on 01/29/17 08:05; Start 01/09/17 at 20:00; Status Future hold Atorvastatin Calcium (Lipitor) 40 mg HS PO Last administered on 01/29/17 19: 56; Start 01/09/17 at 21:00 Gabapentin (Neurontin) 300 mg DAILY@0600 PO Last administered on 01/30/17 06: 06; Start 01/10/17 at 06:00 Hydralazine HCl (Apresoline) 50 mg Q8HR PO Last administered on 01/30/17 06: 05; Start 01/09/17 at 22:00 Insulin Human NPH (NovoLIN N INJ) 22 units HS SQ Last administered on 20:19; Start 01/09/17 at 21:00; Stop 01/16/17 at 11:31; Status DC Isosorbide Mononitrate (Imdur) 60 mg DAILY@07 PO Last administered on 06:06; Start 01/10/17 at 07:00 Lactobacillus Acidophilus (Lactinex) 1 tab TIDAC PO Last administered on 17:10; Start 01/10/17 at 08:00 Ticagrelor (Brilinta) 90 mg BID PO Last administered on 01/27/17 08:53; Start 01/09/17 at 21:00; Status Future Hold Tiotropium [place] (Spiriva Inh) 18 mcg DAILY INH ; Start 01/10/17 at 09:00; Stop 01/10/17 at 09:00; Status DC Pantoprazole Sodium (Protonix) 20 mg DAILY PO Last administered on 01/10/17 08 :31; Start 01/10/17 at 09:00; Stop 01/11/17 at 00:52; Status DC Gabapentin (Neurontin) 400 mg HS PO Last administered on 01/19/17 21:17; Start 01/09/17 at 21:00; Stop 01/20/17 at 18:14; Status DC Nitroglycerin (Nitrostat Sl) 0.4 mg Q5M PRN SL CHEST PAIN; Start 01/09/17 at 18 :45 Heparin Sodium/ Dextrose 250 ml @ 16.8 mls/hr TITRATE PRN IV Coagulation management Last administered on 01/10/17 16:40; Start 01/09/17 at 19:00; Status Future Hold Sodium Chloride (NS Flush) 2 ml BID IV FLUSH Last administered on 01/29/17 19 :54; Start 01/09/17 at 21:00 Sodium Chloride (NS Flush) 2 ml UNSCH PRN IV FLUSH FLUSH AFTER USING IV ACCESS ; Start 01/09/17 at 19:00 Alprazolam (Xanax) 0.25 mg Q8H PRN PO ANXIETY Last administered on 01/25/17 21 :10; Start 01/09/17 at 19:00; Stop 01/26/17 at 12:40; Status DC Vancomycin HCl 1500 mg/Sodium Chloride 515 ml @ 257.5 mls/ hr Q24H IV ; Start 01/09/17 at 22:00; Stop 01/10/17 at 10:03; Status DC Miscellaneous Information SPECIFIC LAB TO BE DRAWN:VANCO TROUGH DATE TO BE DR... ONCE ONCE .XX ; Start 01/12/17 at 21:45; Stop 01/12/17 at 21:46; Status Cancel Furosemide (Lasix Inj) 40 mg ONCE ONCE IV PUSH Last administered on 01/10/17 01:36; Start 01/10/17 at 01:30; Stop 01/10/17 at 01:31; Status DC Metoprolol Tartrate (Lopressor) 50 mg Q12HR PO Last administered on 01/15/17 21:45; Start 01/10/17 at 09:00; Stop 01/16/17 at 09:01; Status DC Vancomycin HCl 1500 mg/Sodium Chloride 515 ml @ 257.5 mls/ hr ONCE ONCE IV Last administered on 01/10/17 11:00; Start 01/10/17 at 11:00; Stop 01/10/17 at 12:59; Status DC Al Hydrox/Mg Hydrox/Simethicone (Mag-Al Plus Susp Liq) 30 ml ONCE ONCE PO Last administered on 01/10/17 22:45; Start 01/10/17 at 22:45; Stop 01/10/17 at 22:46; Status DC Pantoprazole Sodium 80 mg/ Sodium Chloride 100 ml @ 10 mls/hr Q10H IV Last administered on 01/14/17 00:39; Start 01/11/17 at 02:00; Stop 01/14/17 at 09:02 ; Status DC Pantoprazole Sodium 80 mg/ Sodium Chloride 35 ml @ 420 mls/hr Q5M ONCE IV Last administered on 01/11/17 01:49; Start 01/11/17 at 01:49; Stop 01/11/17 at 01:53; Status DC Propofol (Diprivan 200 Mg/20 ml Inj) 400 mg STK-MED ONCE .ROUTE ; Start at 12:10; Stop 01/11/17 at 12:11; Status DC Lactated Ringer's 1,000 ml @ 30 mls/hr Q24H ONCE IV Last administered on 12:19; Start 01/11/17 at 13:00; Stop 01/12/17 at 12:59; Status DC Miscellaneous Information ALL NURSING DEPARTME... UNSCH PRN .XX SEE LABEL COMMENTS; Start 01/11/17 at 12:56; Stop 01/12/17 at 12:55; Status DC Bumetanide (Bumex Inj) 2 mg Q8H IV PUSH Last administered on 01/15/17 12:52; Start 01/11/17 at 20:00; Stop 01/15/17 at 14:09; Status DC Chlorothiazide Sodium (Diuril Inj) 500 mg ONCE ONCE IV Last administered on 21:57; Start 01/11/17 at 20:00; Stop 01/11/17 at 21:04; Status DC Bacitracin (Bacitracin Oint Packet) 0.9 gm DAILY TOPICAL Last administered on 01/29/17 08:30; Start 01/12/17 at 09:00 Methylprednisolone Sodium Succinate (SoluMEDROL INJ) 40 mg Q12H IV PUSH Last administered on 01/12/17 22:41; Start 01/12/17 at 09:00; Stop 01/13/17 at 08:26 ; Status DC Cefepime HCl 1000 mg/Sodium Chloride 100 ml @ 200 mls/hr DAILY IV Last administered on 01/12/17 09:10; Start 01/12/17 at 09:00; Stop 01/13/17 at 08:26 ; Status DC Ergocalciferol (Drisdol) 50,000 units Q7D PO Last administered on 01/26/17 18: 22; Start 01/12/17 at 16:00 Pantoprazole Sodium (Protonix Inj) 40 mg Q24H IV PUSH ; Start 01/12/17 at 16:45 ; Status UNV Methylprednisolone Sodium Succinate (SoluMEDROL INJ) 20 mg Q12H IV PUSH Last administered on 01/16/17 21:00; Start 01/13/17 at 09:00; Stop 01/17/17 at 08:07 ; Status DC Sodium Polystyrene Sulfonate (Kayexalate Liq) 15 gm ONCE ONCE PO Last administered on 01/13/17 11:45; Start 01/13/17 at 11:00; Stop 01/13/17 at 11:01 ; Status DC Sodium Polystyrene Sulfonate (Kayexalate Liq) 15 gm ONCE ONCE PO Last administered on 01/13/17 11:45; Start 01/13/17 at 11:15; Stop 01/13/17 at 11:26 ; Status DC Chlorothiazide Sodium (Diuril Inj) 500 mg ONCE ONCE IV Last administered on 11:15; Start 01/13/17 at 11:15; Stop 01/13/17 at 11:26; Status DC Dextrose (D50w (Syr) Inj) 50 ml STK-MED ONCE .ROUTE Last administered on 08:17; Start 01/14/17 at 08:07; Stop 01/14/17 at 08:08; Status DC Pantoprazole Sodium (Protonix) 40 mg Q12HR PO Last administered on 01/29/17 19:55; Start 01/14/17 at 09:00 Polyethylene Glycol (Miralax) 17 gm DAILY PO Last administered on 01/29/17 08 :06; Start 01/14/17 at 09:00 Metoclopramide HCl (Reglan Inj) 10 mg STK-MED ONCE .ROUTE Last administered on 01/14/17 13:01; Start 01/14/17 at 13:01; Stop 01/14/17 at 13:02; Status DC Lidocaine HCl (Xylocaine-Mpf 1% Inj) 5 ml STK-MED ONCE OTHER ; Start 01/11/17 at 12:00; Stop 01/14/17 at 16:06; Status DC Succinylcholine Chloride (Quelicin Inj) 100 mg STK-MED ONCE IV PUSH ; Start at 12:00; Stop 01/14/17 at 16:06; Status DC Ondansetron HCl (Zofran Inj) 4 mg STK-MED ONCE IV PUSH ; Start 01/11/17 at 12:00 ; Stop 01/14/17 at 16:06; Status DC Fentanyl Citrate (fentaNYL INJ) 100 mcg STK-MED ONCE IV ; Start 01/11/17 at 12: 00; Stop 01/14/17 at 16:06; Status DC Bethanechol Chloride (Urecholine) 12.5 mg Q8HR PO Last administered on 06:23; Start 01/15/17 at 14:00; Stop 01/27/17 at 10:13; Status DC Miscellaneous (Pill Splitter) 1 ea UNSCH PRN OTHER SEE LABEL COMMENTS Last administered on 01/24/17 21:38; Start 01/15/17 at 14:15; Stop 01/27/17 at 10:13 ; Status DC Bumetanide (Bumex Inj) 2 mg Q12HR IV PUSH Last administered on 01/16/17 10:16 ; Start 01/16/17 at 09:00; Stop 01/16/17 at 18:23; Status DC Calcium Acetate (Phoslo) 667 mg TIDPC PO Last administered on 01/21/17 09:12; Start 01/15/17 at 18:30; Stop 01/21/17 at 10:36; Status DC Metoprolol Tartrate (Lopressor) 75 mg Q12HR PO Last administered on 01/18/17 21:34; Start 01/16/17 at 10:00; Stop 01/19/17 at 12:13; Status DC Miscellaneous (Pill Splitter) 1 ea UNSCH PRN OTHER SEE LABEL COMMENTS Last administered on 01/19/17 05:57; Start 01/16/17 at 09:15 Insulin Human NPH (NovoLIN N INJ) 10 units HS SQ Last administered on 21:00; Start 01/16/17 at 21:00; Stop 01/17/17 at 08:08; Status DC Bumetanide (Bumex Inj) 1 mg Q12HR IV PUSH Last administered on 01/17/17 09:15 ; Start 01/16/17 at 21:00; Stop 01/17/17 at 17:53; Status DC Insulin Human NPH (NovoLIN N INJ) 14 units HS SQ Last administered on 21:34; Start 01/17/17 at 21:00; Stop 01/18/17 at 10:21; Status DC Prednisone (Deltasone) 40 mg DAILY PO Last administered on 01/19/17 08:45; Start 01/17/17 at 09:00; Stop 01/19/17 at 12:14; Status DC Bumetanide (Bumex Inj) 2 mg Q12HR IV PUSH Last administered on 01/29/17 19:53 ; Start 01/17/17 at 21:00 Insulin Human NPH (NovoLIN N INJ) 20 units HS SQ Last administered on 21:36; Start 01/18/17 at 21:00; Stop 01/19/17 at 12:13; Status DC Acetazolamide Sodium (Diamox Inj) 500 mg ONCE ONCE IV PUSH Last administered on 01/18/17 19:34; Start 01/18/17 at 15:00; Stop 01/18/17 at 15:01; Status DC Potassium Chloride (KCl) 20 meq ONCE ONCE PO Last administered on 01/18/17 17 :44; Start 01/18/17 at 14:00; Stop 01/18/17 at 14:01; Status DC Acetazolamide Sodium (Diamox Inj) 500 mg ONCE ONCE IV PUSH Last administered on 01/19/17 14:21; Start 01/19/17 at 11:45; Stop 01/19/17 at 11:51; Status DC Insulin Human NPH (NovoLIN N INJ) 22 units HS SQ Last administered on 21:18; Start 01/19/17 at 21:00; Stop 01/20/17 at 15:04; Status DC Metoprolol Tartrate (Lopressor) 50 mg Q12HR PO Last administered on 01/21/17 22:07; Start 01/19/17 at 21:00; Stop 01/22/17 at 08:07; Status DC Prednisone (Deltasone) 30 mg DAILY PO Last administered on 01/25/17 08:37; Start 01/20/17 at 09:00; Stop 01/25/17 at 23:09; Status DC Insulin Detemir (Levemir Inj) 15 units HS SQ Last administered on 01/29/17 19 :55; Start 01/20/17 at 21:00 Amiodarone HCl 150 mg/Dextrose 103 ml @ 600 mls/hr Q11M ONCE IV Last administered on 01/21/17 11:56; Start 01/21/17 at 10:27; Stop 01/21/17 at 10:37 ; Status DC Amiodarone HCl 450 mg/Dextrose 250 ml @ 33 mls/hr Q7H35M IV Last administered on 01/23/17 23:53; Start 01/21/17 at 09:44; Stop 01/24/17 at 07:28; Status DC Calcium Acetate (Phoslo) 1,334 mg TIDPC PO Last administered on 01/29/17 17: 11; Start 01/21/17 at 13:30 Chlorothiazide Sodium (Diuril Inj) 500 mg DAILY IV Last administered on 08:39; Start 01/21/17 at 10:45; Stop 01/25/17 at 14:14; Status DC Levofloxacin/ Dextrose 100 ml @ 100 mls/hr Q48H IV Last administered on 12:42; Start 01/21/17 at 13:00; Stop 01/26/17 at 12:40; Status DC Metronidazole 100 ml @ 100 mls/hr Q8H IV Last administered on 01/26/17 12:26 ; Start 01/21/17 at 14:00; Stop 01/26/17 at 12:40; Status DC Potassium Chloride (KCl) 40 meq ONCE ONCE PO Last administered on 01/22/17 01 :58; Start 01/22/17 at 01:45; Stop 01/22/17 at 01:52; Status DC Metoprolol Tartrate (Lopressor) 75 mg Q12HR PO Last administered on 01/29/17 19:56; Start 01/22/17 at 09:00 Potassium Chloride (KCl) 40 meq ONCE ONCE PO Last administered on 01/23/17 09 :57; Start 01/23/17 at 08:30; Stop 01/23/17 at 08:31; Status DC Potassium Chloride 100 ml @ 50 mls/hr Q2H IV Last administered on 01/23/17 09 :55; Start 01/23/17 at 09:00; Stop 01/23/17 at 12:59; Status DC Albuterol/ Ipratropium (Duoneb Neb) 1 ampule Q4HR NEB PRN NEB DYSPNEA Last administered on 01/24/17 00:24; Start 01/23/17 at 10:00; Stop 01/24/17 at 09:35 ; Status DC Potassium Chloride (KCl) 10 meq Q8HR PO Last administered on 01/25/17 21:10; Start 01/23/17 at 22:00; Stop 01/25/17 at 23:06; Status DC Heparin Sodium (Porcine) (Heparin Inj) 2,500 units Q12HR SQ Last administered on 01/29/17 19:53; Start 01/23/17 at 21:00 Amiodarone HCl (Cordarone) 200 mg DAILY PO Last administered on 01/29/17 08: 06; Start 01/24/17 at 09:00 Methylprednisolone Sodium Succinate (SoluMEDROL INJ) 40 mg Q12HR IV PUSH Last administered on 01/25/17 21:09; Start 01/24/17 at 09:00; Stop 01/25/17 at 23:09 ; Status DC Albuterol/ Ipratropium (Duoneb Neb) 1 ampule Q4HR NEB NEB Last administered on 01/25/17 07:36; Start 01/24/17 at 10:15; Stop 01/25/17 at 12:17; Status DC Albuterol/ Ipratropium (Duoneb Neb) 1 ampule Q4HR NEB PRN NEB RESPIRATORY DISTRESS Last administered on 01/29/17 19:27; Start 01/25/17 at 16:00 Albuterol/ Ipratropium (Duoneb Neb) 1 ampule Q4HR WHILE AWAKE NEB NEB Last administered on 01/29/17 15:58; Start 01/25/17 at 16:00; Stop 01/29/17 at 15: 59; Status DC Chlorothiazide Sodium (Diuril Inj) 500 mg Q12HR IV Last administered on 09:15; Start 01/25/17 at 21:00; Stop 01/26/17 at 13:15; Status DC Albumin Human (Albumin 25% Inj) 12.5 gm Q12HR IV Last administered on 09:00; Start 01/25/17 at 21:00; Stop 01/27/17 at 20:59; Status DC Prednisone (Deltasone) 10 mg BID PO Last administered on 01/27/17 08:51; Start 01/26/17 at 09:00; Stop 01/27/17 at 09:55; Status DC Levofloxacin (Levaquin) 500 mg Q48H PO Last administered on 01/29/17 08:17; Start 01/27/17 at 09:00 Metronidazole (Flagyl) 500 mg Q8HR PO Last administered on 01/30/17 06:06; Start 01/26/17 at 14:00; Stop 01/30/17 at 13:59 Chlorothiazide Sodium (Diuril Inj) 500 mg DAILY IV Last administered on 08:26; Start 01/27/17 at 09:00; Stop 02/06/17 at 12:00 Acetazolamide Sodium (Diamox Inj) 500 mg ONCE ONCE IV PUSH Last administered on 01/26/17 18:26; Start 01/26/17 at 18:00; Stop 01/26/17 at 18:01; Status DC Prednisone (Deltasone) 5 mg BID PO Last administered on 01/29/17 19:56; Start 01/27/17 at 21:00 Acetazolamide Sodium (Diamox Inj) 500 mg ONCE ONCE IV PUSH Last administered on 01/27/17 17:22; Start 01/27/17 at 18:00; Stop 01/27/17 at 18:01; Status DC Potassium Chloride (KCl) 40 meq ONCE STAT PO Last administered on 01/28/17 12 :14; Start 01/28/17 at 11:33; Stop 01/28/17 at 11:34; Status DC Acetazolamide Sodium (Diamox Inj) 500 mg ONCE ONCE IV PUSH Last administered on 01/28/17 18:01; Start 01/28/17 at 18:00; Stop 01/28/17 at 18:01; Status DC Potassium Chloride 100 ml @ 50 mls/hr ONCE ONCE IV Last administered on 14:05; Start 01/28/17 at 14:00; Stop 01/28/17 at 15:59; Status DC Potassium Chloride 100 ml @ 50 mls/hr Q2H IV Last administered on 01/29/17 17:13; Start 01/29/17 at 11:15; Stop 01/29/17 at 15:14; Status DC Acetazolamide Sodium (Diamox Inj) 500 mg ONCE ONCE IV PUSH Last administered on 10/10/17at 12:30; Start 01/29/17 at 11:15; Stop 01/29/17 at 11:18; Status DC A/P Problem List: (1) COPD exacerbation ICD Code: J44.1 - Chronic obstructive pulmonary disease with (acute) exacerbation Status: Acute (2) Congestive heart failure ICD Code: I50.9 - Congestive heart failure Status: Acute (3) Infection of toe ICD Code: L08.9 - Local infection of the skin and subcutaneous tissue, unspecified Status: Acute (4) Shortness of breath dyspnea ICD Code: R06.02 - Shortness of breath dyspnea Status: Acute (5) Hypertension ICD Code: I10 - Hypertension Status: Chronic (6) Chronic obstructive pulmonary disease ICD Code: J44.9 - Chronic obstructive pulmonary disease Status: Chronic (7) Hyperlipidemia ICD Code: E78.5 - Hyperlipidemia Status: Chronic (8) Chronic kidney disease, stage III (moderate) ICD Code: N18.3 - Chronic kidney disease, stage III (moderate) Status: Acute (9) Atrial fibrillation ICD Code: I48.91 - Atrial fibrillation Status: Chronic (10) DM (diabetes mellitus) ICD Code: E11.9 - DM (diabetes mellitus) Status: Acute (11) NSTEMI (non-ST elevated myocardial infarction) ICD Code: I21.4 - Non-ST elevation (NSTEMI) myocardial infarction (12) UTI (lower urinary tract infection) ICD Code: N39.0 - UTI (lower urinary tract infection) Status: Acute (13) Anemia ICD Code: D64.9 - Anemia Status: Acute (14) Diabetes ICD Code: E11.9 - Diabetes mellitus Status: Acute Assessment and Plan A/P - Probable aspiration pneumonia - Continue Levaquin and Flagyl PO. - Acute diastolic congestive heart failure - Coronary artery disease with recent bare metal stent placement. - Elevated troponins were likely related to NSTEMI from previous admission. - BNP > 400. LVEF 65-70%. - Continue aspirin 81 mg, Ticagrelor 90mg BID. - Currently on Bumex 2mg IV Q12hrs. Nephrology added Diuril. - Continue Metoprolol Q12hrs, Imdur 60mg Qday, Lipitor 40mg QHS. - Acute kidney injury - Chronic kidney disease - baseline creatinine 1.5. - Hypokalemia - Creatinine 3.30 --> 3.80. Creatinine continues to worsen. - Appreciate nephrology input. Possible dialysis if creatinine continues to worsen. - Continue Bumex 2mg Q12hrs IV and Diuril. - Per nephrology, patient is on Albumin. - Ticagrelor is on hold due to possible need for Dialysis catheter placement. - hospice was reconsulted. - Probable upper GI bleed - EGD did not show any evidence of active bleeding site. - Continue PPI. - Diabetes mellitus type 2 - Continue Levemir 15 units QHS, sliding scale insulin. - Glucose is somewhat high due to steroid. We will continue to taper steroid. - Incidental finding of 1 cm irregular nodule right upper lobe - CT chest 12/23/16 - Recommend follow-up CT at approximately 3, 9 and 24 months and or contrast enhanced CT, PET and/or biopsy Full code. Heparin for DVT while in the hospital. Discharge Planning dc to hospice later today. see med list. time spent 32 min. d/w the patient and hospice. Problem Qualifiers (1) Congestive heart failure: Qualified Codes: I50.23 - Acute on chronic systolic (congestive) heart failure Bob Phillips MD Jan 30, 2017 09:15
[2017-01-30] MEDS ORDERED: LEVEMIR SQ (09:18)
[2017-01-30] MEDS: DOCUSATE SODIUM 50 MG/SENNA 8.6 MG TAB PO SCH (09:32)
[2017-01-30] MEDS: guaiFENesin E.R. 600 MG TAB PO SCH (09:32)
[2017-01-30] MEDS: METOPROLOL TARTRATE 25 MG TAB PO SCH (09:32)
[2017-01-30] MEDS: predniSONE 10 MG TAB PO SCH (09:32)
[2017-01-30] MEDS: LACTOBACILLUS ACIDOPHILUS TAB PO SCH ×2 (09:32→12:54)
[2017-01-30] MEDS: CALCIUM ACETATE 667 MG CAP PO SCH ×2 (09:32→12:56)
[2017-01-30] MEDS: AMIODARONE 200 MG TAB PO SCH (09:32)
[2017-01-30] MEDS: BUMETANIDE INJ 1 MG/4 ML VIAL IV PUSH SCH (09:33)
[2017-01-30] MEDS: ASPIRIN 81 MG CHEW TAB PO SCH (09:33)
[2017-01-30] MEDS: HEPARIN SODIUM - SQ 10,000 UNITS/ML VIAL SQ SCH (09:33)
[2017-01-30] MEDS: PANTOPRAZOLE SOD 40 MG DELAYED RELEASE TAB PO SCH (09:34)
[2017-01-30] MEDS: SODIUM CHLORIDE 0.9% FLUSH 10 ML FLUSH IV FLUSH SCH (09:36)
[2017-01-30] MEDS: BUDESONIDE-FORMOTEROL 160/4.5 MCG INHALER INH SCH (09:36)
[2017-01-30 09:46] VITALS: O2SAT 98
[2017-01-30 09:57] LABS: HEMATOCRIT 30.9 % (39.0-51.0); MEAN CELL VOLUME 86.9 FL (80.0-100.0); MEAN CORPUSCULAR HEMOGLOBIN 28.2 PG (27.0-34.0); MEAN CORPUSCULAR HGB CONC 32.4 % (32.0-36.0); PLATELET COUNT 113 TH/MM3 (150-450); RED BLOOD COUNT 3.55 MIL/MM3 (4.50-5.90); RED CELL DISTRIBUTION WIDTH 16.2 % (11.6-17.2); REVIEW FLAG FINAL; WHITE BLOOD COUNT 14.8 TH/MM3 (4.0-11.0)
[2017-01-30] MEDS: POLYETHYLENE GLYCOL 17 GM PKG PO SCH (10:08)
[2017-01-30] MEDS: CHLOROTHIAZIDE SOD 500 MG VIAL IV SCH (10:08)
[2017-01-30] MEDS: BACITRACIN OINT 0.9 GM PKT TOPICAL SCH (10:09)
[2017-01-30 10:28] LABS: BICARBONATE 37.4 MEQ/L (21.0-32.0); POTASSIUM 3.4 MEQ/L (3.5-5.1)
--- NOTE | 2017-01-30 11:05 | HHI.DS ---
Discharge Summary Admission Date Jan 09, 2017 at 18:36 Discharge Date: Jan 30, 2017 Admitting Diagnosis (1) COPD exacerbation ICD Code: J44.1 - Chronic obstructive pulmonary disease with (acute) exacerbation Diagnosis: Principal Status: Acute (2) Congestive heart failure ICD Code: I50.9 - Congestive heart failure Diagnosis: Principal Status: Acute (3) Infection of toe ICD Code: L08.9 - Local infection of the skin and subcutaneous tissue, unspecified Diagnosis: Secondary Status: Acute (4) Shortness of breath dyspnea ICD Code: R06.02 - Shortness of breath dyspnea Diagnosis: Principal Status: Acute (5) Hypertension ICD Code: I10 - Hypertension Diagnosis: Secondary Status: Chronic (6) Chronic obstructive pulmonary disease ICD Code: J44.9 - Chronic obstructive pulmonary disease Diagnosis: Principal Status: Chronic (7) Hyperlipidemia ICD Code: E78.5 - Hyperlipidemia Diagnosis: Secondary Status: Chronic (8) Chronic kidney disease, stage III (moderate) ICD Code: N18.3 - Chronic kidney disease, stage III (moderate) Diagnosis: Secondary Status: Acute (9) Atrial fibrillation ICD Code: I48.91 - Atrial fibrillation Diagnosis: Principal Status: Chronic (10) DM (diabetes mellitus) ICD Code: E11.9 - DM (diabetes mellitus) Diagnosis: Principal Status: Acute (11) NSTEMI (non-ST elevated myocardial infarction) ICD Code: I21.4 - Non-ST elevation (NSTEMI) myocardial infarction Diagnosis: Principal (12) UTI (lower urinary tract infection) ICD Code: N39.0 - UTI (lower urinary tract infection) Diagnosis: Secondary Status: Acute (13) Anemia ICD Code: D64.9 - Anemia Diagnosis: Secondary Status: Acute (14) Diabetes ICD Code: E11.9 - Diabetes mellitus Diagnosis: Secondary Status: Acute Procedures 01/10/2017 Echo Normal left ventricular size. Mild concentric left ventricular hypertrophy. The left ventricular systolic function is hyperdynamic with an estimated ejection fraction in the range of 65- 70%. This study was not technically sufficient to allow for evaluation of left ventricular diastolic function. The right ventricle is moderately dilated. The right ventricular systoilc function is mildly decreased. The left atrial size is moderately dilated. The right atrial size is moderate to severely dilated. The interatrial septum not well visualized. Mild thickening of the mitral valve leaflets. [id number] mitral valve regurgitation. Trace aortic valve regurgitation. No aortic valve stenosis. Annular dilatation of the tricuspid valve. There is moderate to severe tricuspid valve regurgitation. There is estimated moderate pulmonary hypertension present (range 50-60 mmHg). The inferior vena cava was not well visualized. A prominent epicardial fat pad is present. 01/11/2017 EGD Large gastric residuals Gastritis Brief History - From Admission Written by Shantal Lam PA-C acting as scribe for Dr. Davis on 01/09/17 at 18:31. This is an 86-year-old male with past medical history significant for coronary artery disease status post recent stenting with implantation of bare- metal stent s/p discharge 01/01/17, COPD, questionable CHF, diabetes, atrial fibrillation, neuropathy, GERD and history of prostate cancer who presents to [facility] ED with complaints of shortness of breath and chest discomfort for the past 2 days. Patient reports he did not take his medications as prescribed except for Brilinta at the time of his discharge because the [facility] did not fill them for him. Patient has been taking Brilinta and is adamant that last night after taking this medication everything got much worse. He states his dyspnea is worse with exertion. He does not use oxygen at home and during his recent admission was administered two oxygen walk test which he passed. Reportedly, [facility] and was told that if he worsened to come to our facility. In the ED, patient's troponin is elevated at 7.60. BNP is 454. Chest x-ray has findings suggestive of congestive failure. CBC/BMP: 01/30/17 0908 01/30/17 0908 Significant Findings Laboratory Tests Test 01/28/17 06:54 01/29/17 05:50 01/30/17 09:08 Blood Urea Nitrogen 134 MG/DL (7-18) 135 MG/DL (7-18) 128 MG/DL (7-18) Creatinine 3.77 MG/DL (0.60-1.30) 3.63 MG/DL (0.60-1.30) 3.60 MG/DL (0.60-1.30) Albumin 2.9 GM/DL (3.4-5.0) 2.8 GM/DL (3.4-5.0) Sodium Level 133 MEQ/L (136-145) 131 MEQ/L (136-145) 131 MEQ/L (136-145) Potassium Level 2.9 MEQ/L (3.5-5.1) 3.0 MEQ/L (3.5-5.1) 3.4 MEQ/L (3.5-5.1) Chloride Level 83 MEQ/L (98-107) 83 MEQ/L (98-107) 82 MEQ/L (98-107) Carbon Dioxide Level 39.1 MEQ/L (21.0-32.0) 39.7 MEQ/L (21.0-32.0) 37.4 MEQ/L (21.0-32.0) Estimat Glomerular Filtration Rate 15 ML/MIN (>89) 16 ML/MIN (>89) 16 ML/MIN (>89) Random Glucose 116 MG/DL (74-106) 184 MG/DL (74-106) White Blood Count 14.8 TH/MM3 (4.0-11.0) Red Blood Count 3.55 MIL/MM3 (4.50-5.90) Hemoglobin 10.0 GM/DL (13.0-17.0) Hematocrit 30.9 % (39.0-51.0) Platelet Count 113 TH/MM3 (150-450) Calcium Level 11.1 MG/DL (8.5-10.1) Imaging Last Impressions Chest X-Ray 01/25/17 0000 Signed Impressions: Service Date/Time: Wednesday, January 25, 2017 06:52 - CONCLUSION: 1. Cardiomegaly. 2. Mild persistent interstitial prominence which is improving likely representing improving edema. 3. Focal alveolar consolidation or atelectasis at the right lower lobe. Storm Fernandez MD Gastric Emptying Nuclear Medicine 01/14/17 0000 Signed Impressions: Service Date/Time: Saturday, January 14, 2017 11:18 - CONCLUSION: 1. Markedly prolonged gastric emptying with no response to Reglan Kenji Calderon MD Abdomen X-Ray 01/12/17 0000 Signed Impressions: Service Date/Time: Thursday, January 12, 2017 10:07 - CONCLUSION: 1. No acute abdominal abnormality is identified. 2. Severe atherosclerotic disease. Storm Allen MD Renal Ultrasound 01/11/17 0000 Signed Impressions: Service Date/Time: Wednesday, January 11, 2017 23:22 - CONCLUSION: No evidence of hydronephrosis. 2.8 cm left renal cyst. Clemente Matute MD Lower Extremity Ultrasound 01/10/17 0000 Signed Impressions: Service Date/Time: December 08:44 - CONCLUSION: 1. Negative left lower extremity DVT study. A Clay's cyst measuring 2.5 x 4.7 x 1 cm. Carlitos Corona MD Toe X-Ray 01/09/17 0000 Signed Impressions: Service Date/Time: Monday, January 09, 2017 17:40 - CONCLUSION: Soft tissue swelling third digit without bony destruction. Wilfredo Maddox MD FACR PE at Discharge GENERAL: Alert, NAD. SKIN: Warm and dry. HEAD: Normocephalic. EYES: No scleral icterus. No injection or drainage. NECK: Supple, trachea midline. No JVD or lymphadenopathy. CARDIOVASCULAR: Regular rate and rhythm without murmurs, gallops, or rubs. RESPIRATORY: Breath sounds equal bilaterally. No accessory muscle use. GASTROINTESTINAL: Abdomen soft, non-tender, nondistended. MUSCULOSKELETAL: No cyanosis. 2+ bilateral lower ext edema. Anasarca. BACK: Nontender without obvious deformity. No CVA tenderness. Hospital Course - Probable aspiration pneumonia - Continue Levaquin and Flagyl PO. - Acute diastolic congestive heart failure - Coronary artery disease with recent bare metal stent placement. - Elevated troponins were likely related to NSTEMI from previous admission. - BNP > 400. LVEF 65-70%. - Continue aspirin 81 mg, Ticagrelor 90mg BID. - Currently on Bumex 2mg IV Q12hrs. Nephrology added Diuril. - Continue Metoprolol Q12hrs, Imdur 60mg Qday, Lipitor 40mg QHS. - Acute kidney injury - Chronic kidney disease - baseline creatinine 1.5. - Hypokalemia - Creatinine 3.30 --> 3.80. Creatinine continues to worsen. - Appreciate nephrology input. Possible dialysis if creatinine continues to worsen. - Continue Bumex 2mg Q12hrs IV and Diuril. - Per nephrology, patient is on Albumin. - Ticagrelor is on hold due to possible need for Dialysis catheter placement. - hospice was reconsulted. - Probable upper GI bleed - EGD did not show any evidence of active bleeding site. - Continue PPI. - Diabetes mellitus type 2 - Continue Levemir 15 units QHS, sliding scale insulin. - Glucose is somewhat high due to steroid. We will continue to taper steroid. - Incidental finding of 1 cm irregular nodule right upper lobe - CT chest 12/23/16 - Recommend follow-up CT at approximately 3, 9 and 24 months and or contrast enhanced CT, PET and/or biopsy Full code. Heparin for DVT while in the hospital. Discharge Planning awaiting hospice reevaluation. Pt Condition on Discharge: Deteriorating Discharge Disposition: Hospice/Med Facility Discharge Time: > 30 minutes Discharge Instructions DIET: Follow Instructions for: Diabetic Diet, Renal Failure Diet Activities you can perform: Regular-No Restrictions oBb Phillips MD Jan 30, 2017 11:04
[2017-01-30 12:00] VITALS: BP 139/64; PULSE 53; RESP 19; TEMP 98.2; O2SAT 99
[2017-01-30] MEDS: INSULIN ASPART SUPPLEMENTAL SCALE SQ SCH (12:55)
== END 2017-01-30 13:12 | disposition hospice, inpatient (51) | DRG 280 ==
LOC: NEPC 15:22 → NEDA 18:36 → OBSVTOIN 18:36 → UNDOADMOB 18:56 → NEDA 18:56 → HCIS 21:38 → N04A 01-17 10:48
PROVIDERS: ADMIT Internal Medicine; ATTEND Internal Medicine
PROC: 0DJ08ZZ Inspection of Upper Intestinal Tract, Via Natural or Artificial Opening Endoscopic (ICD-10-PCS; principal; 2017-01-11 12:15)
DX: I13.0 Hypertensive heart and chronic kidney disease with heart failure and stage 1 through stage 4 chronic kidney disease, or unspecified chronic kidney disease (principal); J69.0 Pneumonitis due to inhalation of food and vomit; I21.3 ST elevation (STEMI) myocardial infarction of unspecified site; N17.0 Acute kidney failure with tubular necrosis; Z51.5 Encounter for palliative care; K92.0 Hematemesis; I47.2 Ventricular tachycardia; E87.3 Alkalosis; E11.43 Type 2 diabetes mellitus with diabetic autonomic (poly)neuropathy; K31.84 Gastroparesis; I50.31 Acute diastolic (congestive) heart failure; J44.1 Chronic obstructive pulmonary disease with (acute) exacerbation; D62 Acute posthemorrhagic anemia; L97.828 Non-pressure chronic ulcer of other part of left lower leg with other specified severity; N25.81 Secondary hyperparathyroidism of renal origin; E87.1 Hypo-osmolality and hyponatremia; I27.20 Pulmonary hypertension, unspecified; I50.9 Heart failure, unspecified; E11.22 Type 2 diabetes mellitus with diabetic chronic kidney disease; N18.3 Chronic kidney disease, stage 3 (moderate); E78.5 Hyperlipidemia, unspecified; D64.9 Anemia, unspecified; S81.802A Unspecified open wound, left lower leg, initial encounter; I48.2 Chronic atrial fibrillation; I25.10 Atherosclerotic heart disease of native coronary artery without angina pectoris; H91.93 Unspecified hearing loss, bilateral; I45.10 Unspecified right bundle-branch block; L97.529 Non-pressure chronic ulcer of other part of left foot with unspecified severity; K29.70 Gastritis, unspecified, without bleeding; R13.10 Dysphagia, unspecified; E55.9 Vitamin D deficiency, unspecified; K21.9 Gastro-esophageal reflux disease without esophagitis; E87.6 Hypokalemia; E87.5 Hyperkalemia; K59.00 Constipation, unspecified; E11.649 Type 2 diabetes mellitus with hypoglycemia without coma; G47.30 Sleep apnea, unspecified; R82.71 Bacteriuria; E11.65 Type 2 diabetes mellitus with hyperglycemia; T38.0X5A Adverse effect of glucocorticoids and synthetic analogues, initial encounter; I08.3 Combined rheumatic disorders of mitral, aortic and tricuspid valves; M19.90 Unspecified osteoarthritis, unspecified site; Z66 Do not resuscitate; Z79.4 Long term (current) use of insulin; Z85.46 Personal history of malignant neoplasm of prostate; Z87.891 Personal history of nicotine dependence; Z88.0 Allergy status to penicillin; Z91.138 Patient's unintentional underdosing of medication regimen for other reason; Z92.3 Personal history of irradiation; Z95.5 Presence of coronary angioplasty implant and graft; Z99.81 Dependence on supplemental oxygen
CPT/HCPCS: 71010; 73660; 74000; 76775; 76937; 78264; 80048; 80053; 80061; 80069; 80202; 81001; 82306; 82550; 82552; 82784; 82948; 83036; 83540; 83550; 83690; 83735; 83880; 83883; 83970; 84100; 84132; 84155; 84165; 84439; 84443; 84484; 85014; 85018; 85025; 85027; 85610; 85730; 86021; 86038; 86160; 86334; 86403; 86803; 86850; 86900; 86901; 87040; 87070; 87077; 87086; 87147; 87186; 87205; 93005; 93308; 93971; 94002; 94150; 94640; 94664; 96374; A9541; C9113; J0282; J0330; J0692; J1120; J1205; J1644; J1815; J1940; J1956; J2405; J2765; J2920; J2930; J3010; J3370; J3480; J7040; J7060; J7120; J7512; J7613; P9047